=== PATIENT | male | born 1935 | race Caucasian/White ===

== ENCOUNTER 2023-03-16 12:27 | Outpatient (OUT) | payer MEDICARE, OTHER, SELFPAY ==
[2023-03-16 13:42] LABS: Estimated Average Glucose 166 mg/dL; Glycohemoglobin A1C 7.4 % (4.5-6.2)
== END 2023-03-16 12:28 ==
LOC: LAB 12:36
PROVIDERS: PCP Family Medicine; Visit Provider Family Medicine
DX: E11.65 Type 2 diabetes mellitus with hyperglycemia (principal)
CPT/HCPCS: 36415; 83036

== ENCOUNTER 2023-03-27 12:25 | Emergency (ER) | payer MEDICARE, OTHER, SELFPAY ==
[2023-03-27 12:30] VITALS: BP 180/100; PULSE 59; RESP 18; TEMP 36.6; O2SAT 98; BMI 28.7
--- NOTE | 2023-03-27 12:43 | PC.NURSE ---
Pt has recently had a MRI at [facility] for his back pain. Pt states that he just wants answers for the pain and all of his other symptoms that he is having. States main concerns todayis the back pain. States it hurts to move and cough and cannot walk safely on his own due to the pain and weakness.
--- NOTE | 2023-03-27 13:03 | ED.BACK1 ---
HPI - Back Pain/Injury General Chief Complaint: Back Pain/Injury Stated Complaint: BACK PAIN Time Seen by Provider: 03/27/23 13:03 Source: patient and family Mode of arrival: Wheelchair Limitations: no limitations History of Present Illness HPI Narrative: pt presents emergency department complaining of back pain. Patient states he has a history of degenerative disc disease. Had an MRI done a [facility] and has not seen his doctor regarding the results. He has seen Dr nicholson in the last month for increasing back pain. The pain is worse on the right side is not radiate to the lower extremity. He has weakness, and fatigue. He also has been vomiting at home. Patient is taking Ultram and only has 2 pills left. Denies any paresthesias, or weakness. He denies any urinary, bowel incontinence, or retention. Patient was also given prednisone for [address] nicholson on March 16 symptoms are not improving. Family states he has decreased appetite and feeling very weak. He is also being referred to cardiology for a low heart rate. She states they saw the neurologist Dr. Murray which advised that he needs to be in some medication but because of his low heart rates they cannot start that medication. Patient states is not getting any better and the pain has increased. He denies any hematuria, dysuria.He denies any fall or trauma. Related Data Home Medications Medication Instructions Recorded Confirmed aspirin 81 mg tablet,delayed 81 mg PO DAILY 03/27/23 03/27/23 release donepezil 10 mg tablet (Aricept) 10 mg PO DAILY 03/27/23 03/27/23 hydralazine 25 mg tablet 25 mg PO TID 03/27/23 03/27/23 isosorbide mononitrate 60 mg 60 mg PO DAILY 03/27/23 03/27/23 tablet,extended release 24 hr latanoprost 0.005 % eye drops 1 drp ophthalmic (eye) DAILY 03/27/23 03/27/23 lisinopril 20 1 tab PO DAILY 03/27/23 03/27/23 mg-hydrochlorothiazide 25 mg tablet lovastatin 40 mg tablet 40 mg PO DAILY 03/27/23 03/27/23 metformin 500 mg tablet 500 mg PO DAILY 03/27/23 03/27/23 naproxen 500 mg tablet 250 mg PO BID PRN pain 03/27/23 03/27/23 omeprazole 40 mg capsule,delayed 40 mg PO DAILY 03/27/23 03/27/23 release oxybutynin chloride 10 mg 10 mg PO DAILY 03/27/23 03/27/23 tablet,extended release 24 hr tamsulosin 0.4 mg capsule 0.4 mg PO DAILY 03/27/23 03/27/23 vitamins A,C,Q-twhv-fydieb 4,296 1 cap PO DAILY 03/27/23 03/27/23 mcg-226 mg-90 mg capsule (PreserVision AREDS) Previous Rx's Medication Instructions Recorded oxycodone-acetaminophen 5 mg-325 1 tab PO Q6H PRN pain 5 days #20 03/27/23 mg tablet (Percocet) tabs Allergies Allergy/AdvReac Type Severity Reaction Status Date / Time No Known Drug Allergies Allergy Verified 03/27/23 12:39 Review of Systems ROS Status of ROS 10 or more systems reviewed and unremarkable except as noted in history and below Exam Narrative Exam Narrative: Nurses notes and vital signs reviewed and patient is not hypoxic. General: Nontoxic, Appears in pain, in no apparent distress. Skin: Warm, dry, no pallor noted. No Rash Head: Normocephalic, atraumatic. Neck: Supple, non-tender. Eye: Pupils are equal, round and EOMI. No scleral icterus. Ears, Nose, Mouth, and Throat: TM clear, no posterior oropharynx erythema or nasal mucosal hypertrophy, uvula is mid-line Oral mucosa is moist Cardiovascular: Regular Rate and Rhythm without murmur, gallop or rub. Respiratory: No accessory muscle use or respiratory distress. Lungs are clear to auscultation, no wheezing, rales or rhonchi Chest Wall: no tenderness Back: No midline thoracic or lumbar vertebral tenderness. + right CVA tenderness Musculoskeletal: normal ROM, no calf or popliteal tenderness, no lower extremity edema/swelling GI: Abdomen is soft, non-distended. Normal bowel sounds. No masses appreciated. No tenderness to palpation. No rebound, guarding, or rigidity noted. Neurological: A&O x4. No cranial nerve dysfunction observed. No truncal ataxia. Moves all extremities. Sensation intact. Psychiatric: Cooperative and interactive. Normal mood and affect. Constitutional Vital Signs - 24 hr 03/27/23 12:30 03/27/23 13:53 Temperature 97.9 F Pulse Rate [Monitor] 59 L Respiratory Rate 18 Blood Pressure [Left Arm] 180/100 H Pulse Oximetry 98 Oxygen Delivery Method Room Air Room Air Course Vital Signs Vital signs: Vital Signs Temperature 97.9 F 03/27/23 12:30 Pulse Rate 59 L 03/27/23 12:30 Respiratory Rate 18 03/27/23 12:30 Blood Pressure 180/100 H 03/27/23 12:30 Pulse Oximetry 98 03/27/23 12:30 Oxygen Delivery Method Room Air 03/27/23 12:30 Temperature 97.9 F 03/27/23 12:30 Pulse Rate 59 L 03/27/23 12:30 Respiratory Rate 18 03/27/23 12:30 Blood Pressure 180/100 H 03/27/23 12:30 Pulse Oximetry 98 03/27/23 12:30 Oxygen Delivery Method Room Air 03/27/23 13:53 MDM - Back Pain/Injury MDM Narrative Medical decision making narrative: Patient had an IV established. He was given IV fluids and morphine. His symptoms improved. The patient the need to do further workup to ensure he does not have a kidney stone. States he takes Flomax at home. He takes it twice a day. All results were discussed with patient. Patient is advised to continue drinking plenty of fluids and strain the urine. He is currently passing a kidney stone. He will also follow up with his primary care doctor regarding the MRI and with urology. pt was given a prescription for [place]. At this time the patient is without objective evidence of an acute process requiring hospitalization or inpatient management. The patient has remained hemodynamically stable. No additional indication for emergent studies at this time. I answered all questions. Discussed discharge instructions including standard anticipatory guidance and what should prompt a return to the emergency department, including if they get worse are not getting better or develops any new or concerning symptoms. I've given them specific time frame in which to follow-up, and who to follow-up with. The patient demonstrates understanding. Patient is nontoxic and stable for discharge with outpatient follow-up. This note was created with the assistance of a speech recognition program. Although the intention is to generate documents that actually reflects the content of the visit, no guarantees can be provided that every mistake has been identified and corrected by editing. Differential Diagnosis Differential diagnosis: Likely lumbar radiculopathy, sciatica, strain of lumbar region, renal colic, AAA and discitis Medical Records Attestation: I reviewed the patient's medical records. Lab Data Attestation: I reviewed the patient's lab results. Labs: Lab Results 03/27/23 Range/Units 13:35 WBC 14.5 H (4.0-11.0) 10^3/uL RBC 4.72 (4.70-6.10) 10^6/uL Hgb 14.4 (14.0-18.0) g/dL Hct 42.7 (42.0-54.0) % MCV 90.5 (80.0-94.0) fL MCH 30.5 (25.9-34.0) pg MCHC 33.7 (29.9-35.2) g/dL RDW 12.7 (11.0-15.0) % Plt Count 265 (150-450) 10^3/uL MPV 9.7 (9.5-13.5) fL Neut % (Auto) 81.6 H (43.0-75.0) % Lymph % (Auto) 11.4 L (20.5-60.0) % Jack % (Auto) 5.6 (1.7-12.0) % Eos % (Auto) 0.6 L (0.9-7.0) % Baso % (Auto) 0.3 (0.2-2.0) % Neut # (Auto) 11.8 H (1.4-6.5) 10^3/uL Lymph # (Auto) 1.7 (1.2-3.8) 10^3/uL Jack # (Auto) 0.8 (0.3-0.8) 10^3/uL Eos # (Auto) 0.1 (0.0-0.7) 10^3/uL Baso # (Auto) 0.0 (0.0-0.1) 10^3/uL Abs Immat Gran (auto) 0.07 H (0.00-0.03) 10^3/uL Imm/Tot Granulo (auto) 0.5 (0.0-0.5) % Sodium 132 L (136-145) mmol/L Potassium 4.8 (3.5-5.1) mmol/L Chloride 94 L (98-107) mmol/L Carbon Dioxide 31.7 (21.0-32.0) mmol/L Anion Gap 11.1 BUN 27.0 H (7.0-18.0) mg/dL Creatinine 1.28 (0.70-1.30) mg/dL Est GFR ( Amer) >60 (>=60) Est GFR (Non-Af Amer) 53 L (>=60) BUN/Creatinine Ratio 21.1 Glucose 232 H (74-106) mg/dL Calcium 9.2 (8.5-10.1) mg/dL Total Bilirubin 1.4 H (0.2-1.0) mg/dL AST 34 (15-37) U/L ALT 32 (16-63) U/L Alkaline Phosphatase 120 H (46-116) U/L Total Protein 7.8 (6.4-8.2) g/dL Albumin 3.7 (3.4-5.0) g/dL Globulin 4.1 g/dL Albumin/Globulin Ratio 0.9 Urine Color Lt. yellow (YELLOW) Urine Clarity Clear (CLEAR) Urine pH 7.0 (5.0-9.0) Ur Specific [place] <=1.005 A (1.005-1.025) Urine Protein Negative (NEG/TRACE) mg/dL Urine Glucose (UA) Negative (NEGATIVE) mg/dL Urine Ketones Negative (NEGATIVE) mg/dL Urine Occult Blood Negative (NEGATIVE) Urine Nitrite Negative (NEGATIVE) Urine Bilirubin Negative (NEGATIVE) Urine Urobilinogen 0.2 (0.2-1.0) EU/dL Ur Leukocyte Esterase Negative (NEGATIVE) Discharge Plan Discharge Chief Complaint: Back Pain/Injury Clinical Impression: Degenerative disc disease, Kidney stone on right side Patient Disposition: Home, Self-Care Time of Disposition Decision: 15:58 Condition: Good Mode of Transportation: Private Vehicle Prescriptions / Home Meds: New oxycodone-acetaminophen [Percocet] 5-325 mg tablet 1 tab PO Q6H PRN (Reason: pain) 5 Days Qty: 20 0RF Rx Instructions: N20 No Action donepezil [Aricept] 10 mg tablet 10 mg PO DAILY isosorbide mononitrate 60 mg tablet extended release 24 hr 60 mg PO DAILY lisinopril-hydrochlorothiazide 20-25 mg tablet 1 tab PO DAILY lovastatin 40 mg tablet 40 mg PO DAILY metformin 500 mg tablet 500 mg PO DAILY oxybutynin chloride 10 mg tablet extended release 24hr 10 mg PO DAILY tamsulosin 0.4 mg capsule 0.4 mg PO DAILY hydralazine 25 mg tablet 25 mg PO TID aspirin 81 mg tablet,delayed release (DR/EC) 81 mg PO DAILY PreserVision AREDS 4,296 mcg-226 mg-90 mg capsule 1 cap PO DAILY latanoprost 0.005 % drops 1 drp ophthalmic (eye) DAILY naproxen 500 mg tablet 250 mg PO BID PRN (Reason: pain) omeprazole 40 mg capsule,delayed release(DR/EC) 40 mg PO DAILY Instructions: Kidney Stones (ED), Degenerative Disc Disease (ED) Stand Alone Forms: Portal Instructions Referrals: Ramon Nicholson MD [Primary Care Provider] - 1 week Discharge Date/Time: 03/27/23 16:23
--- NOTE | 2023-03-27 13:26 | CT_ITS ---
[address] [address] Patient Name: EDWIN QUINTANILLA MRN: [id number] date: 1935 Sex: M Assigned Patient Location: ER Current Patient Location: Accession/Order Number: [id number] Exam Date: 03/27/2023 14:19 Report Date: 03/27/2023 15:01 At the request of: GONZÁLEZ HADDAD Procedure: CT abdomen pelvis wo con EXAMINATION: CT abdomen pelvis wo con HISTORY: flank pain low back pain, DDD COMPARISON: No relevant comparison available. TECHNIQUE: Axial, Coronal, and Sagittal images were obtained without and/or with IV contrast as indicated by examination type. Dose reduction techniques were achieved by using automated exposure control and/or adjustment of mA and/or kV according to patient size and/or use of iterative reconstruction technique. FINDINGS: LUNG BASES: No visible pulmonary or pleural disease. LIVER: No enlargement, atrophy, suspicious density, or significant focal lesion. BILIARY: Cholecystectomy. PANCREAS: No lesion, fluid collection, or abnormal duct dilatation. SPLEEN: No enlargement or focal lesion. ADRENALS: No mass or enlargement. KIDNEYS: 1 mm nonobstructing stone within distal right ureter at the ureterovesical junction. BOWEL/MESENTERY: Marked diverticulosis of the descending and sigmoid colon without acute inflammatory changes. No visible mass, obstruction, or bowel wall thickening. AORTA/VASCULAR: No aneurysm or dissection. RETROPERITONEUM: No mass or adenopathy. LYMPH NODES: No adenopathy. URINARY BLADDER: No visible focal wall thickening, lesion, or calculus. PELVIC ORGANS: Prior radioactive seeding of the prostate. ABDOMINAL WALL: No mass or hernia. BONES: Marked degenerative disc disease and facet arthropathy of the lumbar spine except L2-3 where there is only moderate disc height reduction. OTHER: Negative. IMPRESSION: 1.Nonobstructing1-2 mm stone within distal right ureter at the ureterovesical junction. 2. Marked sigmoid diverticulosis without acute diverticulitis. 3.Multilevel marked degenerative changes of the lumbar spine. No comparison studies. Electronically authenticated by: COLEEN NEWELL Date: 03/27/2023 15:01
[2023-03-27] MEDS: MORPHINE SULFATE 4 MG/ML VIAL IM (13:38)
[2023-03-27 13:51] LABS: Basophils Percent Auto 0.3 % (0.2-2.0); Eosinophils Absolute Auto 0.1 10^3/uL (0.0-0.7); Eosinophils Percent Auto 0.6 % (0.9-7.0); Hematocrit 42.7 % (42.0-54.0); Hemoglobin 14.4 g/dL (14.0-18.0); Immature Granulocytes Abs Auto 0.07 10^3/uL (0.00-0.03); Immature Granulocytes Pct Auto 0.5 % (0.0-0.5); Lymphocytes Absolute Auto 1.7 10^3/uL (1.2-3.8); Lymphocytes Percent Auto 11.4 % (20.5-60.0); Mean Corpuscular HGB Conc 33.7 g/dL (29.9-35.2); Mean Corpuscular Hemoglobin 30.5 pg (25.9-34.0); Mean Corpuscular Volume 90.5 fL (80.0-94.0); Mean Platelet Volume 9.7 fL (9.5-13.5); Monocytes Absolute Auto 0.8 10^3/uL (0.3-0.8); Monocytes Percent Auto 5.6 % (1.7-12.0); Neutrophils Absolute Auto 11.8 10^3/uL (1.4-6.5); Neutrophils Percent Auto 81.6 % (43.0-75.0); Platelet Count 265 10^3/uL (150-450); Red Blood Count 4.72 10^6/uL (4.70-6.10); Red Cell Distribution Width 12.7 % (11.0-15.0); White Blood Count 14.5 10^3/uL (4.0-11.0)
[2023-03-27 14:00] LABS: Bilirubin Urine NEGATIVE (NEGATIVE); Blood Urine NEGATIVE (NEGATIVE); Clarity Urine CLEAR (CLEAR); Color Urine LT. YELLOW (YELLOW); Glucose Urine UA NEGATIVE (NEGATIVE); Ketones Urine NEGATIVE (NEGATIVE); Leukocyte Esterase Urine NEGATIVE (NEGATIVE); Nitrite Urine NEGATIVE (NEGATIVE); Protein Urine NEGATIVE (NEG/TRACE); Specific Gravity Urine <=1.005 (1.005-1.025); Urobilinogen Urine 0.2 EU/dL (0.2-1.0)
[2023-03-27 14:03] LABS: Urine Microscopic Indicated NO
[2023-03-27 14:04] LABS: Alanine Aminotransferase 32 U/L (16-63); Albumin Globulin Ratio 0.9; Albumin Level 3.7 g/dL (3.4-5.0); Alkaline Phosphatase 120 U/L (46-116); Anion Gap 11.1; Aspartate Amino Transferase 34 U/L (15-37); BUN Creatinine Ratio 21.1; Bilirubin Total 1.4 mg/dL (0.2-1.0); Calcium 9.2 mg/dL (8.5-10.1); Carbon Dioxide 31.7 mmol/L (21.0-32.0); Chloride 94 mmol/L (98-107); Estimated GFR (African America >60 (>=60); Estimated GFR (Non-African Ame 53 (>=60); Globulin 4.1 g/dL; Glucose 232 mg/dL (74-106); Potassium 4.8 mmol/L (3.5-5.1); Sodium 132 mmol/L (136-145); Total Protein 7.8 g/dL (6.4-8.2)
--- NOTE | 2023-03-27 16:21 | PC.NURSE ---
d/c instructions complete pt verbalized understanding. prescription sent to pharmacy and pt's friend used w/c to take to car.
== END 2023-03-27 16:23 | disposition home or self-care (01) ==
PROVIDERS: Emergency Provider Emergency Medicine; PCP Family Medicine
DX: M51.36 Other intervertebral disc degeneration, lumbar region (principal); N20.0 Calculus of kidney; Z79.82 Long term (current) use of aspirin; Z79.899 Other long term (current) drug therapy; Z79.84 Long term (current) use of oral hypoglycemic drugs
CPT/HCPCS: 36415; 74176; 80053; 81003; 85025; 96372; 99285

== ENCOUNTER 2023-04-11 08:43 | Outpatient (OUT) | payer MEDICARE, OTHER, SELFPAY ==
--- NOTE | 2023-04-11 08:44 | OP_ITS ---
CARDIAC STRESS TEST ? Requesting Physician:? Dr. Ramachandran Procedure Date:? 04/11/2023 ? TREADMILL EXERCISE STRESS TEST ? INDICATION:? Coronary atherosclerosis. ? METHODS:? After risks, benefits and benefits were discussed, written informed consent was obtained.? The patient was brought to the stress lab in a resting and fasting state.? He was connected to the appropriate hemodynamic and electrocardiographic monitoring. ? He underwent a [place] protocol for exercise.? The test was terminated due to fatigue.? He was discharged in a stable state ? FINDINGS:? Hemodynamics:? The patient exercised for 1 minute and 7 seconds, achieving 3.80 METS.? This represented 61% of maximum age predicted heart rate. ? Resting heart rate was 62 beats per minute, increasing to a maximum of 82 beats per minute.? Resting blood pressure was 148/70, increasing to a maximum of 162/68. ? ELECTROCARDIOGRAPHY: Rest EKG:? Sinus bradycardia, 54 beats per minute, non-specific intraventricular conduction delay.? Abnormal EKG. ? During exercise and recovery:? No significant ST-T wave changes noted.? Premature ventricular contractions seen. ? FINAL IMPRESSIONS: 1.? Submaximal treadmill stress test due to inability to achieve 85% of age predicted maximum heart rate response. 2.? No ischemic ST-T wave changes noted on submaximal exercise stress test. 3.? Premature ventricular contractions note. 4.? Gutiérrez treadmill score is 1.1. Estimated one year mortality is 1.3 to 2.9%.? Risk category:? Moderate risk.? Angiography may be indicated. ? ELLEND
== END 2023-04-11 08:44 | disposition home or self-care (01) ==
LOC: CARD 08:43
PROVIDERS: PCP Family Medicine
DX: R53.83 Other fatigue (principal); I25.83 Coronary atherosclerosis due to lipid rich plaque
CPT/HCPCS: 93017

== ENCOUNTER 2023-06-20 13:51 | Outpatient (OUT) | payer MEDICARE, OTHER, SELFPAY ==
--- NOTE | 2023-06-20 | CONS_ITS ---
CONSULTATION DATE: ??06/20/2023 TO:? Dr. Ortiz CHIEF COMPLAINT:? Includes bilateral lower back pain, right more than left side. HISTORY OF PRESENT ILLNESS:? Review of systems, past medical/surgical history were obtained and documented on the health questionnaire and is available upon request. This is an 88-year-old male who reports having pain for the last two years.? It occurred spontaneously and increased gradually to its present state.? He complains of 5-7/10, sharp in character in the above mentioned areas, increased with activities such as standing, walking and performing transitioning maneuvers.? He feels most comfortable in the semi-recumbent position.? Denies any change in bowel and bladder habits or new sensorimotor changes in the lower extremities. EXAMINATION:? Notable for patient having no clinical radiculopathy or myelopathy involving his lower extremities.? Patient did have significant lumbar facet loading pain occurring bilaterally from L4 through S1 with associated myofascial spasm of the lumbar paravertebral muscles. IMPRESSION:? 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 RECOMMENDATIONS:? I have recommended he consider aquatic therapy.? I have placed him on gabapentin 100 mg b.i.d. and to consider a diagnostic bilateral L3, L4, L5 medial branch block under fluoroscopic guidance. As part of providing excellent, safe, comprehensive care, the following was completed at our patient's visit: 1. A medication reconciliation and review to ensure accurate knowledge of current/active medications, including asking our patients to inform us about any [id number] medications or herbal remedies/nutritional supplements/alternative remedies. 2. A review to specifically ensure our patients have had annual screening for: elevated body mass index (BMI, see intake chart for exact total), tobacco use, screening for depression, and screening for unhealthy alcohol use.? When screening is concerning, patients are provided with education and the specific recommendation to discuss the concerning health issue and treatment options with their primary care provider. LISA
== END 2023-06-20 13:52 | disposition home or self-care (01) ==
PROVIDERS: PCP Family Medicine; Visit Provider Anesthesiology Pain Medicine
DX: M47.817 Spondylosis without myelopathy or radiculopathy, lumbosacral region (principal); G89.29 Other chronic pain
CPT/HCPCS: G0463

== ENCOUNTER 2023-07-04 10:03 | Day surgery (SDC) | payer MEDICARE, OTHER, SELFPAY ==
[2023-07-04 10:44] VITALS: BP 160/72; PULSE 58; RESP 16; TEMP 36.2; O2SAT 95
[2023-07-04 10:52] LABS: Glucometer 149 mg/dL (74-106)
[2023-07-04 11:35] VITALS: RESP 20
[2023-07-04] MEDS: BUPIVACAINE HCL 0.25% PF 25 MG/10 ML VIAL 8 ML INJ (11:42)
[2023-07-04 11:44] VITALS: BP 191/84; BP 191/86; PULSE 64; PULSE 66; O2SAT 96
--- NOTE | 2023-07-04 12:35 | W.PM.PROCNOT ---
Date of procedure: 07/04/23 Pre-op diagnosis: Lumbar Spondylosis Post-op diagnosis: same as pre-op Procedure: Bilateral Lumbar 3,4,5 medial branch block Under fluoroscopic guidance Solution injected: 2millilitersMarcaine 0.25% Anesthesia :none Immediate complications none Time out process compliant After informed consent obtained from the patient placed in the Prone proposition . area was prepped and draped in a sterile fashion using Cloraprep .25 gauge spinal needle inserted over each of the above mentioned target areas . [place] were directed towards the target under fluoroscopic guidance . after encountering each of the targets , no indication of intravascular intraneuronal or intrathecal needle tip placement. Then 0 .5 to 1 Milliliter was injected at each level. [place] removed postoperatively. patient transferred to recovery in stable condition to be discharged home after meeting criteria Anesthesia: Local Surgeon: Ericka Holden Condition: stable
== END 2023-07-04 11:53 | disposition home or self-care (01) ==
LOC: SURGOUT 10:04
PROVIDERS: PCP Family Medicine; Visit Provider Anesthesiology Pain Medicine
DX: M47.816 Spondylosis without myelopathy or radiculopathy, lumbar region (principal); Z79.82 Long term (current) use of aspirin; Z79.84 Long term (current) use of oral hypoglycemic drugs
CPT/HCPCS: 36415; 36416; 64493; 64494; 82948

== ENCOUNTER 2023-07-18 14:12 | Outpatient (OUT) | payer MEDICARE, OTHER, SELFPAY ==
--- NOTE | 2023-07-18 | CONS_ITS ---
CONSULTATION DATE: ??07/18/2023 TO:? Ramon Ortiz M.D. HISTORY:? Patient returns today complaining of 4-7/10 pain in his lower back, bilateral lower extremities.? This is sharp in nature, increased with activities such as standing, walking and performing transitioning maneuvers.? Patient feels most comfortable in the semi-recumbent position.? Denies any change in bowel and bladder habits or new sensorimotor changes in the lower extremities.? Patient does report, as he is walking, he has progressive weakness and pain in his lower extremities bilaterally, when walking for even approximately 20 yards.? After sitting for a short period of time, he reports his leg pain does improve and then he is able to walk once more.? Denies any change in bowel and bladder habits, again, or new sensorimotor changes in the lower extremities EXAMINATION:? Notable for patient having depressed bipatellar reflux, weakness of his iliopsoas muscle bilaterally, as well as his quadriceps bilaterally.? He had a negative straight leg raise.? He had no clinical signs consistent with myelopathy. IMPRESSION:? 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 RECOMMENDATIONS:? I have recommended we continue with the gabapentin at 100 mg b.i.d.? Unable to increase the dose at this time secondary to his side effects.? He is having occasional fogginess with the use of gabapentin, and patient is not even sure if it is from the gabapentin, and he cannot tie the two together, but we will not increase the dose from his current level of 100 mg b.i.d.? I have also asked him to start aquatic therapy and, lastly, proceed with an L4-5 epidural steroid injection under fluoroscopic guidance. As part of providing excellent, safe, comprehensive care, the following was completed at our patient's visit: 1. A medication reconciliation and review to ensure accurate knowledge of current/active medications, including asking our patients to inform us about any [id number] medications or herbal remedies/nutritional supplements/alternative remedies. 2. A review to specifically ensure our patients have had annual screening for: elevated body mass index (BMI, see intake chart for exact total), tobacco use, screening for depression, and screening for unhealthy alcohol use.? When screening is concerning, patients are provided with education and the specific recommendation to discuss the concerning health issue and treatment options with their primary care provider. LISA
== END 2023-07-18 14:13 | disposition home or self-care (01) ==
LOC: PM 14:12
PROVIDERS: PCP Family Medicine; Visit Provider Anesthesiology Pain Medicine
DX: M48.062 Spinal stenosis, lumbar region with neurogenic claudication (principal); G89.29 Other chronic pain
CPT/HCPCS: G0463

== ENCOUNTER 2023-07-21 13:56 | Outpatient (RCR) | payer MEDICARE, OTHER, SELFPAY | END 2023-07-28 15:10 | disposition home or self-care (01) | LOC: PT 13:56 | PROVIDERS: PCP Family Medicine; Visit Provider Anesthesiology Pain Medicine | DX: M48.062 Spinal stenosis, lumbar region with neurogenic claudication (principal) | CPT/HCPCS: 97110; 97161 ==

== ENCOUNTER 2023-08-01 11:12 | Day surgery (SDC) | payer MEDICARE, OTHER, SELFPAY ==
[2023-08-01 12:01] LABS: Glucometer 139 mg/dL (74-106)
[2023-08-01 12:02] VITALS: BP 151/77; PULSE 59; RESP 16; TEMP 36.7; O2SAT 97
[2023-08-01 12:56] VITALS: BP 165/72; BP 171/74; PULSE 76; PULSE 77; RESP 18; O2SAT 96; O2SAT 97
[2023-08-01] MEDS: BUPIVACAINE HCL 0.25% PF 25 MG/10 ML VIAL 2 ML INJ (12:58)
[2023-08-01] MEDS: 0.9 % SODIUM CHLORIDE 10 ML SYRINGE - SALINE FLUSH 2 ML INJ (12:58)
[2023-08-01] MEDS: IOHEXOL 240 MG/ML - 10 ML VIAL INJ (12:59)
[2023-08-01] MEDS: LIDOCAINE HCL 2% PF 100 MG/5 ML VIAL 4 ML INJ (12:59)
[2023-08-01] MEDS: LIDOCAINE HCL 2% PF 100 MG/5 ML VIAL INJ (13:00)
[2023-08-01] MEDS: METHYLPREDNISOLONE ACETATE 80 MG/ML VIAL INJ (13:00)
--- NOTE | 2023-08-01 13:35 | P.ON_ITS ---
Date of procedure: 08/01/23 Pre-op diagnosis: Lumbar stenosis Post-op diagnosis: same as pre-op Procedure: Lumbar 4/5 Epidural Steroid Injection Under fluoroscopic guidance Immediate complications none Solution used for injection: Marcaine 0.25% 2mL, 2cc Normal saline, Depo-Medrol 80mg Omnipaque 3 mL Anesthesia local 2% lidocaine up to 4ml Timeout process compliant After informed consent obtained. Patient brought to the procedure room placed in the prone position. Skin overlying the area was prepped and draped in a sterile fashion using betadine. 25 gauge needle used to raise a skin wheel with local anesthetic over the target area identified under fluoroscopy. A 17 gauge Touhy needle Was inserted over the anesthetized area and directed towards the inter- space under fluoroscopic guidance. Epidural space was identified with loss of resistance technique to air. Needle Tip placement confirmed with injection of contrast solution. Steroid solution was then injected. Anesthesia: Local Surgeon: Ericka Holden Condition: stable
== END 2023-08-01 13:09 | disposition home or self-care (01) ==
LOC: SURGOUT 11:12
PROVIDERS: Anesthesiology; PCP Family Medicine; Visit Provider Anesthesiology Pain Medicine
DX: M48.061 Spinal stenosis, lumbar region without neurogenic claudication (principal); M54.16 Radiculopathy, lumbar region; Z79.82 Long term (current) use of aspirin; Z79.84 Long term (current) use of oral hypoglycemic drugs
CPT/HCPCS: 36415; 62323; 82948; J1040; Q9966

== ENCOUNTER 2023-08-16 10:47 | Outpatient (OUT) | payer MEDICARE, OTHER, SELFPAY ==
--- NOTE | 2023-08-16 11:24 | P.CN_ITS ---
Consult Note: HPI Data of Consult Patient: known to practice within the last 3 years Requesting Physician: Caridad Jordan NP Primary Care Provider: Ramon Ortiz MD Consult Narrative Reason for consult: f/u Narrative: Corey Orourke a pleasant 88 year old male presents for evaluation and management of low back pain. Today rating pain 3/10. Is reporting 90% ongoing pain relief and functional improvement as a result of L4/5 OMAR. Patient doing well on current medication regimen. cc:: CC: Caridad Jordan NP Review of Systems ROS Status of ROS 10 or more systems reviewed and unremarkable except as noted in history and below Musculoskeletal Reports: back pain Meds Home Medications and Allergies Home Medications Medication Instructions Recorded Confirmed Type aspirin 81 mg tablet,delayed 81 mg PO DAILY 03/27/23 08/01/23 History release donepezil 10 mg tablet (Aricept) 10 mg PO DAILY 03/27/23 08/01/23 History hydralazine 25 mg tablet 25 mg PO TID 03/27/23 08/01/23 History isosorbide mononitrate 60 mg 60 mg PO DAILY 03/27/23 08/01/23 History tablet,extended release 24 hr latanoprost 0.005 % eye drops 1 drp ophthalmic (eye) DAILY 03/27/23 08/01/23 History lisinopril 20 1 tab PO DAILY 03/27/23 08/01/23 History mg-hydrochlorothiazide 25 mg tablet lovastatin 40 mg tablet 40 mg PO DAILY 03/27/23 08/01/23 History metformin 500 mg tablet 500 mg PO DAILY 03/27/23 08/01/23 History omeprazole 40 mg capsule,delayed 40 mg PO DAILY 03/27/23 08/01/23 History release oxybutynin chloride 10 mg 10 mg PO DAILY 03/27/23 08/01/23 History tablet,extended release 24 hr tamsulosin 0.4 mg capsule 0.4 mg PO DAILY 03/27/23 08/01/23 History vitamins A,C,P-ijtm-cihoib 4,296 1 cap PO DAILY 03/27/23 08/01/23 History mcg-226 mg-90 mg capsule (PreserVision AREDS) gabapentin 100 mg capsule 100 mg PO BID #60 caps 06/20/23 08/01/23 Rx acetaminophen 500 mg tablet 1,000 mg PO TID PRN pain 06/21/23 08/01/23 History (Acetaminophen Extra Strength) citalopram 20 mg tablet 20 mg PO DAILY 06/21/23 08/01/23 History Allergies Allergy/AdvReac Type Severity Reaction Status Date / Time No Known Drug Allergies Allergy Verified 08/01/23 12:00 Exam Constitutional Documenting provider has reviewed patient's vital signs: yes Common normals: no apparent distress, oriented x3, healthy appearing, alert and well nourished General appearance: cooperative HENMT Common normals: normocephalic, hearing grossly normal bilaterally and moist oral mucous membranes Head and scalp: normocephalic Eye Common normals: PERRL Pupil: PERRL Neck & C-Spine Common normals: full ROM General: normal visual inspection Chest Common normals: inspection of chest normal Respiratory Common normals: normal respiratory effort, no retractions and no use of accesso ry muscles Back & Pelvis Lumbar spine/lower back: ROM limited, pain with ROM and straight leg raise negative bilaterally Neuro Common normals: oriented x3, CN's II-XII intact bilaterally, moves all extremities, no focal motor deficits, no sensory deficits noted and deep tendon reflexes 2+ bilaterally Sensorium/orientation: alert Gait (neuro): antalgic and assistive device used walker Motor exam: strength 5/5 throughout and no movement abnormalities noted Psych Common normals: mental status grossly normal, thought process normal, cooperative, affect normal, speech normal and activity/motor behavior normal Speech: normal speech Thought process: normal thought process Results Additional Findings Additional findings: I have checked an [place] report on this patient today and there are no aberrancies noted in the prescribing history.?? A drug screen was completed and reviewed within the last year, and if there has not been a drug screen completed we ordered one today to monitor higher risk, state monitored pain medication use. As part of providing excellent, safe, comprehensive care, the following was completed at our patient's visit: 1. A medication reconciliation and review to ensure accurate knowledge of current/active medications, including asking our patients to inform us about any vgze-use-dbnlegm medications or herbal remedies/nutritional supplements/alternative remedies. 2. A review to specifically ensure our patients have had annual screening for: elevated body mass index (BMI), tobacco use, screening for depression, and screening for unhealthy alcohol use. When screening is concerning, patients are provided with education and the specific recommendation to discuss the concerning health issue and treatment options with their primary care provider. Assessment and Plan Assessment and Plan (1) Lumbar stenosis with neurogenic claudication: Plan continue current medications start PT and aquatherapy f/u 3 months
== END 2023-08-16 10:48 | disposition home or self-care (01) ==
PROVIDERS: PCP Family Medicine; Visit Provider Nurse Practitioner
DX: M48.062 Spinal stenosis, lumbar region with neurogenic claudication (principal)
CPT/HCPCS: G0463

== ENCOUNTER 2023-09-27 14:17 | Outpatient (OUT) | payer MEDICARE, OTHER, SELFPAY ==
[2023-09-27 14:46] LABS: Basophils Absolute Auto 0.1 10^3/uL (0.0-0.1); Basophils Percent Auto 0.7 % (0.2-2.0); Eosinophils Absolute Auto 0.2 10^3/uL (0.0-0.7); Eosinophils Percent Auto 1.3 % (0.9-7.0); Hematocrit 39.1 % (42.0-54.0); Hemoglobin 12.6 g/dL (14.0-18.0); Immature Granulocytes Abs Auto 0.03 10^3/uL (0.00-0.03); Immature Granulocytes Pct Auto 0.2 % (0.0-0.5); Lymphocytes Absolute Auto 1.3 10^3/uL (1.2-3.8); Lymphocytes Percent Auto 8.8 % (20.5-60.0); Mean Corpuscular HGB Conc 32.2 g/dL (29.9-35.2); Mean Corpuscular Hemoglobin 30.3 pg (25.9-34.0); Mean Platelet Volume 9.3 fL (9.5-13.5); Monocytes Percent Auto 6.9 % (1.7-12.0); Neutrophils Absolute Auto 12.4 10^3/uL (1.4-6.5); Neutrophils Percent Auto 82.1 % (43.0-75.0); Platelet Count 277 10^3/uL (150-450); Red Blood Count 4.16 10^6/uL (4.70-6.10); Red Cell Distribution Width 11.9 % (11.0-15.0); White Blood Count 15.1 10^3/uL (4.0-11.0)
[2023-09-27 15:19] LABS: BUN Creatinine Ratio 15.7; Carbon Dioxide 31.1 mmol/L (21.0-32.0); Chloride 94 mmol/L (98-107); Estimated GFR (African America >60 (>=60); Estimated GFR (Non-African Ame >60 (>=60); Glucose 129 mg/dL (74-106); Potassium 4.1 mmol/L (3.5-5.1); Sodium 134 mmol/L (136-145)
== END 2023-09-27 14:18 | disposition home or self-care (01) ==
PROVIDERS: PCP Family Medicine; Visit Provider Internal Medicine Cardiovascular Disease
DX: I49.5 Sick sinus syndrome (principal)
CPT/HCPCS: 36415; 80048; 85025

== ENCOUNTER 2023-10-03 15:26 | Outpatient (OUT) | payer MEDICARE, OTHER, SELFPAY ==
--- NOTE | 2023-10-03 15:33 | XR_ITS ---
The [address] [address] Patient Name: EDWIN QUINTANILLA MRN: [id number] date: 1935 Sex: M Assigned Patient Location: [facility] Current Patient Location: [facility] Accession/Order Number: [id number] Exam Date: 10/03/2023 15:37 Report Date: 10/03/2023 16:19 At the request of: IVAN MCDONALD Procedure: XR chest 2V EXAM: XR chest 2V HISTORY: Sinuses node dysfunction I49.5 COMPARISON: AP portable chest radiograph dated 12/26/2022. TECHNIQUE: PA and lateral views of the chest performed. FINDINGS: There is a left subclavian pacemaker with right atrial and right ventricular leads. The trachea is midline. Stable mild prominence of the cardiac silhouette. The hilar shadows are unremarkable. Stable moderate elevation of the left hemidiaphragm. The lung alvarez are clear. There is no pneumothorax. The bony structures are osteopenic. There are endplate spurs along the spine. There are degenerative changes at the glenohumeral articulations bilaterally. XR/XR chest 2V IMPRESSION: There is no acute cardiopulmonary process. Electronically authenticated by: SAYRA GUILLAUME Date: 10/03/2023 16:19
== END 2023-10-03 15:27 | disposition home or self-care (01) ==
LOC: RAD 15:27
PROVIDERS: PCP Family Medicine; Visit Provider Internal Medicine Cardiovascular Disease
DX: I49.5 Sick sinus syndrome (principal)
CPT/HCPCS: 71046

== ENCOUNTER 2023-10-13 13:39 | Inpatient (IN) | payer MEDICARE, OTHER, SELFPAY ==
[2023-10-13] VITALS (14 sets, daily range): BP systolic 107–187; BP diastolic 51–91; PULSE 60–103; RESP 16–18; TEMP 36.4–36.8; O2SAT 94–98; BMI 26.5; BMI 26.6
--- NOTE | 2023-10-13 13:53 | XR_ITS ---
The [address] [address] Patient Name: EDWIN QUINTANILLA MRN: [id number] date: 1935 Sex: M Assigned Patient Location: ER Current Patient Location: Accession/Order Number: [id number] Exam Date: 10/13/2023 14:35 Report Date: 10/13/2023 14:57 At the request of: SENA CAMERON Procedure: XR shoulder LT min 2V EXAM: XR shoulder LT min 2V, XR chest 1V HISTORY: fall COMPARISON: Chest study dated 10/03/2023 TECHNIQUE: 3 views of the left shoulder were obtained. FINDINGS: Elevation of the humeral head in relation to the glenoid likely related to rotator cuff tear of uncertain chronicity. Marked glenohumeral joint space narrowing suggested. Mild inferior glenoid spurring. Moderate degenerative changes about the acromioclavicular joint with mild spurring of the acromion. Soft tissues are grossly within normal limits. No definite acute fracture or dislocation. AP view of the chest was obtained with portable technique at 2:31 PM. FINDINGS: Heart and mediastinal contours are unremarkable in appearance. Ckmz-gi-nttyoegw elevation of the left hemidiaphragm similar to prior study. Pacemaker on the left similar to prior exam. No obvious focal infiltrate or consolidation. Findings compatible with old rib fractures on the right. Mild degenerative changes in the dorsal spine with mild convexity to the right. XR/XR shoulder LT min 2V IMPRESSION: Left shoulder study fails to demonstrate definite acute fracture or dislocation. Degenerative changes as noted. Chest study fails to demonstrate definite evidence of acute process. Findings compatible with old rib fractures on the right. Follow-up as needed. Electronically authenticated by: NASEEM TOPETE Date: 10/13/2023 14:57
--- NOTE | 2023-10-13 13:53 | ECG_ITS ---
The [facility] Test Date: 2023-10-13 Pat Name: EDWIN QUINTANILLA Department: Room: - Gender: Male [place]: : 1935 Requested By: NORBERTO MARTINES Order Number: [id number] Reading MD: AYAAN PRESTON Measurements Intervals [place] Rate: 60 P: 90 MN: 178 QRS: 58 QRSD: 174 T: 63 QT: 502 QTc: 502 Interpretive Statements Paced rhythm Electronically Signed On 10-16-2023 17:24:10 EST by AYAAN PRESTON
--- NOTE | 2023-10-13 13:53 | XR_ITS ---
The [address] [address] Patient Name: EDWIN QUINTANILLA MRN: [id number] date: 1935 Sex: M Assigned Patient Location: ER Current Patient Location: Accession/Order Number: [id number] Exam Date: 10/13/2023 14:35 Report Date: 10/13/2023 14:57 At the request of: SENA CAMERON Procedure: XR chest 1V EXAM: XR shoulder LT min 2V, XR chest 1V HISTORY: fall COMPARISON: Chest study dated 10/03/2023 TECHNIQUE: 3 views of the left shoulder were obtained. FINDINGS: Elevation of the humeral head in relation to the glenoid likely related to rotator cuff tear of uncertain chronicity. Marked glenohumeral joint space narrowing suggested. Mild inferior glenoid spurring. Moderate degenerative changes about the acromioclavicular joint with mild spurring of the acromion. Soft tissues are grossly within normal limits. No definite acute fracture or dislocation. AP view of the chest was obtained with portable technique at 2:31 PM. FINDINGS: Heart and mediastinal contours are unremarkable in appearance. [id number]-[id number] elevation of the left hemidiaphragm similar to prior study. Pacemaker on the left similar to prior exam. No obvious focal infiltrate or consolidation. Findings compatible with old rib fractures on the right. Mild degenerative changes in the dorsal spine with mild convexity to the right. XR/XR chest 1V IMPRESSION: Left shoulder study fails to demonstrate definite acute fracture or dislocation. Degenerative changes as noted. Chest study fails to demonstrate definite evidence of acute process. Findings compatible with old rib fractures on the right. Follow-up as needed. Electronically authenticated by: NASEEM TOPETE Date: 10/13/2023 14:57
--- OUTSIDE RECORDS SUMMARY | 2023-10-13 13:55 | XMS_ITS | CCD ---
Author Name Unknown Address [address] [place] [address] Organization [facility] Care Team Providers Care Sap Bi Architect Name Role Phone PHYSICIAN, DEFAULT Unavailable Unavailable PHYSICIAN, DEFAULT Unavailable Unavailable SNEHA, DEEP Unavailable Unavailable PHYSICIAN, DEFAULT Unavailable Unavailable PHYSICIAN, DEFAULT Unavailable Unavailable SNEHA, DEEP Unavailable Unavailable UNKNOWN, PROVIDER Unavailable Unavailable UNKNOWN, PROVIDER Unavailable Unavailable SNEHA, DEEP Unavailable Unavailable RAMON MARTINES Unavailable Unavailable ISAI Campo Attending Provider [phone] Sanaz Campo Unavailable DO Jose Eduardo Murray Attending Provider MD Ramon Martines Primary Care Provider [phone] BOBBI, DR RAMON Chen Primary Care Unavailable NADEREElsie, DR RAMON Chen Consulting Unavailable NADEREElsie, DR RAMON Chen Attending Unavailable NADEREElsie, DR RAMON Chen Admitting Unavailable NADEREElsie, DR RAMON Chen Primary Care Unavailable NADEREElsie, DR RAMON Chen Consulting Unavailable CHANOEREElsie, DR RAMON Chen Attending Unavailable NADRENATE, DR RAMON Chen Admitting Unavailable MISC, DR MOORE Admitting Unavailable MISC, DR MOORE Consulting Unavailable MISC, DR MOORE Attending Unavailable NADEREElsie, DR RAMON Chen Primary Care Unavailable NADEREElsie, DR RAMON Chen Primary Care Unavailable NADEREElsie, DR RAMON Chen Attending Unavailable NADRENATE, DR RAMON Chen Admitting Unavailable GONZÁLEZ PARHAM Consulting Unavailable GONZÁLEZ PARHAM Attending Unavailable BOBBI, DR RAMON Chen Primary Care Unavailable GONZÁLEZ PARHAM Admitting Unavailable SAYRA GUILLAUME Consulting Unavailable SUZI NANCE Consulting Unavailable SUZI MURRAY Admitting Unavailable SUZI MURRAY Consulting Unavailable SUZI MURRAY Attending Unavailable BOBBI, DR RAMON Chen Primary Care Unavailable Sanaz Campo Admitting Unavailable Sanaz Campo Attending Unavailable Jose Eduardo Murray Attending UnavailRamon Jones Primary Care Unavailable Jose Eduardo Murray Admitting UnavailRamon Jones Admitting Unavailable Ramon Martines Primary Care Unavailable Ramon Martines Attending Unavailable Deven SALES Attending Unavailable ЕЛЕНА LOU Attending Unavailable DASHA, ЕЛЕНА Attending Unavailable MIKE HILARIO Attending Unavailable JOAQUÍN NELSON Attending Unavailable JOAQUÍN NELSON Attending Unavailable SARAH WILSON Attending Unavailable MIKE HILARIO Admitting Unavailable MIKE HILARIO Attending Unavailable MIKE HILARIO Referring Unavailable Allergies Allergy Classification Reported Allergen(s) Allergy Type Date of Onset Reaction(s) Facility (1 source) 22320,00 Drug allergy (disorder) 11-15-2010 [facility] Repository Medications Current Medications Medication Drug Class(es) Dates Sig (Normalized) Sig (Original) Aspirin (1 source) Platelet Aggregation Inhibitor, Nonsteroidal Anti-inflammatory Drug Aspirin 81 Active donepezil (1 source) Donepezil HCl Active hydroCHLOROthiazide / Lisinopril (1 source) Thiazide Diuretic, Angiotensin Converting Enzyme Inhibitor Lisinopril-hydro CHLOROthiazide Active Isosorbide (1 source) Nitrate Vasodilator Isosorbide Mononitrate ER Active latanoprost (1 source) Prostaglandin Analog Latanoprost Active Lovastatin (1 source) HMG-CoA Reductase Inhibitor Lovastatin Active metFORMIN (1 source) Biguanide metFORMIN HCl Active Metoprolol (1 source) beta-Adrenergic Chandler Metoprolol Succinate ER Active Naproxen (1 source) Nonsteroidal Anti-inflammatory Drug Naproxen Active PreserVision AREDS (1 source) PreserVision AREDS Active tamsulosin (1 source) alpha-Adrenergic Chandler Tamsulosin HCl Active Wrist Brace - (1 source) Start: 09-05-2022 Wrist Brace - as directed Aug, Active Problems Active Problems Problem Classification Problem Date Documented Date Episodic/Chronic Cardiac dysrhythmias (3 sources) Unspecified atrial fibrillation; Translations: [Sick sinus syndrome] Onset: 05-29-2018 Chronic Cardiac dysrhythmias (3 sources) Bradycardia, unspecified; Translations: [BRADYCARDIA UNSPECIFIED] Onset: 12-28-2022 Episodic Coronary atherosclerosis and other heart disease (6 sources) 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; Translations: [Atherosclerotic heart disease of hoopa coronary artery without angina pectoris] Onset: 05-29-2018 Chronic Delirium, dementia, and amnestic and other cognitive disorders (4 sources) Alzheimer's disease with late onset; Translations: [ALZHEIMERS DISEASE WITH LATE ONSET] Onset: 12-21-2022 Chronic Diabetes mellitus with complications (4 sources) Type 2 diabetes mellitus with hyperglycemia; Translations: [TYPE 2 DM W/HYPERGLYCEMIA] Onset: 09-26-2022 Chronic Diabetes mellitus without complication (2 sources) Type 2 diabetes mellitus without complications; Translations: [TYPE 2 DIABETES MELLITUS WITHOUT COMPLICATIONS] Onset: 05-29-2018 Chronic Disorders of lipid metabolism (2 sources) Hyperlipidemia, unspecified; Translations: [HYPERLIPIDEMIA, UNSPECIFIED] Onset: 05-29-2018 Chronic Esophageal disorders (2 sources) Gastro-esophageal reflux disease without esophagitis; Translations: [GASTRO-ESOPHAGEAL REFLUX DISEASE WITHOUT ESOPHAGITIS] Onset: 05-29-2018 Chronic Essential hypertension (8 sources) Essential (primary) hypertension; Translations: [ESSENTIAL (PRIMARY) HYPERTENSION] Onset: 05-29-2018 Chronic Other aftercare (1 source) longterm (current) use of antithrombotics/antip latelets; Translations: [ASSISTED (CURRENT) USE OF ANTITHROMBOTICS/ANTIP LATELETS] Onset: 05-29-2018 Episodic Other aftercare (2 sources) manager intermediate (current) use of aspirin; Translations: [ASSISTED (CURRENT) USE OF ASPIRIN] Onset: 05-29-2018 Episodic Other aftercare (1 source) 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 therapy; Translations: [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 TENDER CURRENT DRUG THERAPY] Onset: 12-28-2022 Episodic Other aftercare (1 source) manager intermediate (current) use of oral hypoglycemic drugs; Translations: [ASSISTED USE ORAL HYPOGLYCEMIC DX] Onset: 12-28-2022 Episodic Other injuries and conditions due to external causes (1 source) Unspecified injury of left wrist, hand and finger(s), initial encounter Episodic Other nervous system disorders (1 source) Unsteadiness on feet; Translations: [UNSTEADINESS ON FEET] Onset: 12-06-2022 Episodic Screening or history of mental health and substance abuse (1 source) Personal history of nicotine dependence; Translations: [PERSONAL HISTORY OF NICOTINE DEPENDENCE] Onset: 05-29-2018 Episodic Spondylosis; intervertebral disc disorders; other back problems (5 sources) Spondylosis without myelopathy or radiculopathy, lumbar region; Translations: [SPONDYLS W/O MYELO-/RADICULOP LUMB] Onset: 12-06-2022 Chronic Sprains and strains (1 source) Unspecified sprain of left wrist, initial encounter Episodic Unclassified (2 sources) Unknown / UNK(Unknown) Onset: 05-29-2018 Unclassified (1 source) longterm (current) use of oral hypoglycemic drugs; Translations: [WELDING MACHINE TENDER (CURRENT) USE OF ORAL HYPOGLYCEMIC DRUGS] Onset: 05-29-2018 Unclassified (1 source) Alzheimer's disease with late onset; Translations: [Alzheimer's disease with late onset] Onset: 01-06-2023 Unclassified (1 source) Unspecified injury of left wrist, hand and finger(s), initial encounter; Translations: [Unspecified injury of left wrist, hand and finger(s), initial encounter] Onset: 09-05-2022 Past or Other Problems Problem Classification Problem Date Documented Da te Episodic/Chronic Conditions associated with dizziness or vertigo (6 sources) Dizziness and giddiness; Translations: [Benign paroxysmal vertigo, unspecified ear] Onset: 12-26-2022 Episodic Coronary atherosclerosis and other heart disease (2 sources) Coronary angioplasty status; Translations: [Coronary angioplasty status] Onset: 12-28-2022 Episodic Results Test Name Value Interpretation Reference Range Facility Office Visiton 10-11-2023 Follow-up visit [id number] [facility] Zimm[facility] 1935 M Date Provider Department Center 10/11/2023 ЕЛЕНА SALMON KRI[facility] No family history on file Level of Service:09465 [place] POSTOP FOLLOW UP VISIT RELATED TO ORIGINAL PX Normal [facility] HPon 10-02-2023 [facility] Electrophysiology Note Reason for visit: bradycardia HPI: Edwin Orourke is a 88 y.o. 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 He was recommended EP consult by his neurology group as he was found to be bradycardic with a pulse of 40 to 50s per his . In December 2022 had his metoprolol discontinued due to having ER visit with [facility] for complaints of dizziness and was found to be bradycardic. Since stopping he has been fairly asymptomatic with no complaints of lightheadedness, dizziness, fatigue. He was also found to have AF , new onset in 2018. He was prescribed xarelto but was too expensive. stress test on 05/17/2018 that showed large anterior ischemia with EF 64%. He had a cath that showed high grade stenosis in the LAD and diagonal and he underwent BRONSON synergy stents and did well. He had a Holter monitor placed which revealed 7% ventricular ectopy which patient reports being asymptomatic, slowest heart report is 31 bpm and average heart rate 54 bpm and overall predominant rhythm was sinus bradycardia to sinus rhythm with frequent ventricular ectopy and first-degree AV block. His bradycardic event with 31 bpm revealed PACs. Patient reports being asymptomatic while wearing monitor. He is scheduled to start Donepizil by neuro for dementia. He denies chest pain, el LOC but does state exertional dyspnea. He is limited in his activities lately from these. ECG 05/04/2018: Atrial fibrillation, possible old septal DC. ECG 05/28/2018 showed sinus rhythm with 1st degree AV block and PAC. Possible anteroseptal DC. ECG today 03/21/2019: sinus rhythm with 1st degree AV block with PACs. Blood testing 02/06/2020: Hemoglobin 15.3, platelets 224, BUN 27, creatinine 1.08, potassium 4.0, LDL 92, triglycerides 115. Blood testing 07/02/2021: Hemoglobin 13, platelets 419, potassium 4.5, BUN 19, creatinine 1.1, LFTs normal, cholesterol 149, HDL 42, triglycerides 133, LDL 80. PMH: Past Medical History: Diagnosis Date Abnormal ECG Arrhythmia PSH: No past surgical history on file. SH: Social Determinants of Health Tobacco Use: Low Risk (04/26/2023) Patient History Smoking Tobacco Use: Never Smokeless Tobacco Use: Never Passive Exposure: Not on file Alcohol Use: Not on file Financial Resource Strain: Not on file Food Insecurity: Not on file Transportation Needs: Not on file Physical Activity: Not on file Stress: Not on file Social Connections: Not on file Intimate Partner Violence: Not on file Depression: Not on file Housing Stability: Not on file Allergies: No Known Allergies Weight: No weight available Visit Vitals Smoking Status Never Meds: Current Outpatient Medications on File Prior to Visit Medication Sig Dispense Refill acetaminophen (Tylenol) 500 mg tablet Take 500 mg by mouth in the morning, at noon, and at bedtime. Take 2 3 times day aspirin 81 mg EC tablet Take 1 tablet every day by oral route. donepezil (Aricept) 10 mg tablet Take 10 mg by mouth at bedtime. hydrALAZINE (Apresoline) 25 mg tablet Take 25 mg by mouth in the morning, at noon, and at bedtime. isosorbide mononitrate ER (Imdur) 60 mg 24 hr tablet Take 1 tablet (60 mg) by mouth once daily as directed. Do not crush or chew. 90 tablet 3 lisinopriL-hydrochlorothiazide 20-25 mg tablet Take 1 tablet by mouth in the morning. lovastatin (Mevacor) 40 mg tablet Take 40 mg by mouth in the morning. metFORMIN (Glucophage) 500 mg tablet Take 500 mg by mouth in the morning. naproxen (Naprosyn) 500 mg tablet Take 500 mg by mouth 1 (one) time each day. oxybutynin XL (Ditropan-XL) 10 mg 24 hr tablet Take 10 mg by mouth in the morning. tamsulosin (Flomax) 0.4 mg 24 hr capsule Take 0.8 mg by mouth in the morning. No current facility-administered medications on file prior to visit. ROS: Cardio Basic Cardiovascular Symptoms: no lightheadedness, no leg edema, no syncope, no orthopnea, no PND, no claudication, Constitutional Constitutional: no fever, no night sweats, no significant weight gain, no significant weight loss, no exercise intolerance Eyes Eyes: no dry eyes, no irritation, no vision change ENMT Ears: no difficulty hearing, no ear pain Nose: no frequent nosebleeds, Mouth/Throat: no sore throat, no bleeding gums, no snoring, no dry mouth, no mouth ulcers, no oral abnormalities, no teeth problems Respiratory Respiratory: no cough, no wheezing, no coughing up blood, no sleep apnea Musculoskeletal Musculoskeletal: no muscle aches, no muscle weakness, joint pain+, no back pain, no swelling in the extremities Integumentary Skin no rash, no ulcer, no varicosities, no discoloration, no pruritus Neurologic Neurologic: no loss of consciousness, no weakness, no numbness, no seizures, no dizziness, no headaches Psychiatric Psych: no depression, feeling safe in relationship, no alcohol abuse, Hematolog (more content not included)... [facility] NURSNOTEon 10-02-2023 NURSNOTE RN educated pt on d/ c instructions. RN encouraged pt to voice any questions or concerns. Pt verbalizes no questions or concerns at this time. Pt was wheeled off of unit with all of belongings. [facility] NURSNOTE CHG wipes and betadi ne nasal swabs completed. [facility] Orders Onlyon 10-02-2023 Orders Only [id number] Edwin Orourke 1935 [facility] Provider Department Center 10/02/2023 EMETERIO GONZALEZ [facility] No family history on file [facility] Orders Onlyon 09-25-2023 Orders Only [id number] Edwin Orourke 1935 [facility] Provider Department Center 09/25/2023 EMETERIO GONZALEZ [facility] No family history on file [facility] Telemedicineon 08-22-2023 Telemedicine [id number] Edwin Orourke 1935 [facility] Provider Department Center 08/22/2023 241MIKE METZGER CARD [facility] No family history on file Level of Service:77887 [place] PHYS/QHP TELEPHONE EVALUATION 11-20 MIN [facility] 36on 07-27-2023 36 No vm [facility] Office Visiton 04-26-2023 Follow-up visit [id number] Edwin Orourke 1935 M [facility] Provider Department Center 04/26/2023 JOAQUÍN LERMA CARD [facility] No family history on file Level of Service:84341 [place] OFFICE/OUTPATIENT ESTABLISHED MOD MDM 30-39 MIN Reason for Visit and Comments: Follow-up [409784] - 2 month follow up [facility] MR lumbar spine wo conon MR lumbar spine wo con [facility] [place] [address] MRI Report Signed Patient: Edwin Orourke MR#: [id number] : 1935 Acct:[id number] Age/Sex: 88 / M ADM Date: 03/24/23 Loc: MR Room: Type: [facility] Attending Dr: Ramon Martines MD Copies to: Ramon Martines MD Ordering Provider: Ramon Martines MD Date of Service: 03/24/23 MR/MR lumbar spine wo con: R27.0 MR lumbar spine wo con 03/24/2023 6:19 PM SIGNS AND SYMPTOMS: Chronic back pain with difficulty ambulating PROTOCOL: Multiplanar multisequence MR images of the lumbar spine were obtained without IV contrast COMPARISON: None. FINDINGS: There is 5 mm of anterolisthesis of L4 upon L5 secondary to facet hypertrophy.. There is preservation of vertebral body heights. There is severe disc height loss at T11-T12, T12-L1, L1-L2, and L4-L5. Lesser degrees of disc height loss are noted throughout otherwise. There is bony fusion across the L3-L4 intervertebral disc. There is Modic type I endplate edema at T11-T12, T12-L1, and L1-L2. The conus terminates at the superior endplate of the L1 vertebral body level. No epidural or paraspinous fluid collection is appreciated. At T12-L1: There is a circumferential disc bulge with endplate osteophyte formation and facet hypertrophy. There is mild spinal canal narrowing with moderate bilateral neural foraminal narrowing. At L1-L2: There is a circumferential disc bulge with facet hypertrophy and endplate osteophyte formation contributing to moderate spinal canal stenosis and moderate bilateral neural foramina. At L2-L3: There is a circumferential disc bulge. There is facet and ligament flavum degenerative change. There is moderate spinal canal stenosis with mild to moderate bilateral neural foraminal narrowing. At L3-L4: There is fusion across intervertebral disc space with endplate osteophyte formation and facet hypertrophy. There is moderate to severe right and moderate left neural foraminal narrowing. At L4-L5: There is 5 mm of anterolisthesis of L4 upon L5. There is a circumferential disc bulge with facet hypertrophy contributing to severe spinal canal stenosis. There is moderate to severe left and severe right neural foraminal narrowing with mass effect on the exiting L4 nerve roots, right greater than left. At L5-S1: There is a circumferential disc bulge with facet hypertrophy. There is moderate spinal canal narrowing with endplate osteophyte formation contributing to moderate bilateral neural foramen. MR/MR lumbar spine wo con IMPRESSION: At L4-L5: There is 5 mm of anterolisthesis of L4 upon L5. There is a circumferential disc bulge with facet hypertrophy contributing to severe spinal canal stenosis. There is moderate to severe left and severe right neural foraminal narrowing with mass effect on the exiting L4 nerve roots, right greater than left. At L3-L4: There is fusion across intervertebral disc space with endplate osteophyte formation and facet hypertrophy. There is moderate to severe right and moderate left neural foraminal narrowing. Additional significant but lesser degrees of degenerative changes are noted throughout, as detailed above. Impression dictated by: Mamta Barrios M.D.03/25/2023 2:26 PM Dictation Location: [place] [address] Transcribed By: [facility] 03/25/23 1426 Dictated By: Mamta Barrios II, MD 03/25/23 1419 Signed By: 03/25/23 1426 [facility] Orders Onlyon 03-15-2023 Orders Only [id number] Edwin Orourke 1935 M Date Provider Department [place] 03/15/2023 YURY RANGEL [facility] Hos No family history on file Normal [facility] Office Visiton 03-14-2023 Follow-up visit [id number] Edwin Orourke 1935 M [facility] Provider Department [place] 03/14/2023 JOAQUÍN LERMA [facility] No family history on file Level of Service:96639 [place] OFFICE/OUTPATIENT ESTABLISHED MOD MDM 30-39 MIN Normal [facility] PROF CHEM 8 (BAS METB)on Anion gap [Moles/Vol] 10.7 mmol/L Normal [facility] Comment on above: Performed By: #### TSH #### [facility] [address] [place] [address] Dr. Yue Vega Calcium [Mass/Vol] 9.4 mg/dL Normal 8.5-10.1 [facility] Comment on above: Performed By: #### TSH #### [facility] [address] [place] [address] Dr. Yue Vega Chloride [Moles/Vol] 97 mmol/L Critically low 98-107 [facility] Comment on above: Performed By: #### TSH #### [facility] [address] [place] [address] [address] Yue Vega CO2 [Moles/Vol] 31.8 mmol/L Normal 21.0-32.0 [facility] Comment on above: Performed By: #### TSH #### [facility] [address] [place] [address] Dr. Yue Vega Creatinine [Mass/Vol] 1.23 mg/dL Normal 0.70-1.30 [facility] Comment on above: Performed By: #### TSH #### [facility] [address] [address] [address] Yue Vega EGFR-AF TANZANIAN >60 Normal >=60 [facility] Comment on above: Performed By: #### TSH #### [facility] [address] [place] [address] Dr. Yue Vega EGFR-NON AF TANZANIAN 56 mL/min/1.73m2 Critically low >=60 [facility] Comment on above: Performed By: #### TSH #### [facility] [address] [address] [address] Yue Vega Glucose [Mass/Vol] 153 mg/dL Critically high 74-106 [facility] Comment on above: Performed By: #### TSH #### [facility] [address] [address] [address] Yue Vega Potassium [Moles/Vol] 4.5 mmol/L Normal 3.5-5.1 [facility] Comment on above: Performed By: #### TSH #### [facility] [address] [place] [address] Dr. Yue Vega Sodium [Moles/Vol] 135 mmol/L Critically low 136-145 [facility] Comment on above: Performed By: #### TSH #### [facility] [address] [place], [place] [address] Dr. Yue Vega Urea nitrogen [Mass/Vol] 22.0 mg/dL Critically high 7.0-18.0 [facility] Comment on above: Performed By: #### TSH #### [facility] [address] [place], [place] [address] Dr. Yue Vega Urea nitrogen/Creatin ine [Mass ratio] 17.9 mg/mg Normal [facility] Comment on above: Performed By: #### TSH #### [facility] [address] [place], [place] [address] Dr. Yue Vega Office Visiton 02-15-2023 Follow-up visit [id number] Edwin Orourke 1935 M Date Provider Department Center 02/15/2023 [id number]-GHIMLMVUWSARAH WILSON [facility] No family history on file Level of Service:95140 [place] OFFICE/OUTPATIENT ESTABLISHED MOD MDM 30-39 MIN Normal [facility] Creatinine (Bld) [Mass/Vol]O rdered By: Suzi Murray on 01-06-2023 Creatinine [Mass/Vol] 1.2 mg/dL 0.6-1.3 [facility] Comment on above: ER/ESD physician is notified/shown all I STAT results.Critical values may be confirmed by laboratory testing ifdeemed necessary by ER attending doctor. MR head/brain wo/w conon MR head/brain wo/w con [facility] [place] [address] MRI Report Signed Patient: Edwin Orourke MR#: [id number] : 1935 Acct:[id number] Age/Sex: 87 / M ADM Date: 01/06/23 Loc: MR Room: Type: [facility] Attending Dr: Jose Eduardo Murray DO Copies to: Suzi Murray DO Ordering Provider: Suzi Murray DO Date of Service: 01/06/23 MR/MR head/brain wo/w con: G30.1 MR head/brain wo/w con 01/06/2023 3:13 PM SIGN AND SYMPTOMS: Alzheimer's dementia PROTOCOL: Multiplanar multisequence MR images of brain were obtained with and without IV contrast CONTRAST: 18 mL of intravenous ProHance COMPARISON: None. FINDINGS: Extra axial spaces: Diffuse age-related cortical atrophy is noted. Hemorrhage: None. Ventricular system: Within normal limits. Basal cisterns: Within normal limits and not effaced. Cerebral parenchyma: Periventricular and subcortical white matter T2 and T2 FLAIR hyperintense foci are noted consistent with chronic microvascular ischemic change. There is also gliosis and encephalomalacia along the medial temporal lobe on the right extending into the right subinsular white matter suggesting a remote infarct. There is no focal postcontrast enhancement. Midline shift: None.. Cerebellum: Within normal limits. Brainstem: Within normal limits. OTHER: Calvarium: Normal marrow signal. Vascular system: Satisfactory flow voids within the anterior and posterior circulation. Visualized Paranasal sinuses: Mucosal thickening is noted in the maxillary sinuses and left ethmoid air cells. Visualized Orbits: Within normal limits. Visualized upper cervical spine: Within normal limits. Sella and skull base: Within normal limits. MR/MR head/brain wo/w con IMPRESSION: No acute intracranial pathology or abnormal postcontrast enhancement. 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 There is diffuse age-related cortical atrophy with chronic microvascular ischemic change. Impression dictated by: Mamta Barrios M.D.01/06/2023 5:26 PM Dictation Location: [place] [address] Transcribed By: [facility] 01/06/23 172 Dictated By: Mamta Barrios II, MD 01/06/231719 Signed By: 01/06/23 172 [facility] Office Visiton 12-28-2022 Follow-up visit [id number] Edwin Orourke 1935 M Date Provider Department Center 12/28/2022 Yanira-ЕЛЕНА LOU BH CARD [facility] No family history on file Level of Service:26775 [place] OFFICE/OUTPATIENT ESTABLISHED MOD MDM 30-39 MIN Reason for Visit and Comments: Dizziness [753705] Fatigue [46] Normal [facility] BNPon 12-26-2022 Natriuretic peptide B (Bld) [Mass/Vol] 483.0 pg/mL Normal <=1,800.0 [facility] Comment on above: Performed By: #### TSH #### [facility] [address] [place] [address] Dr. Yue Vega CARDIAC MAMTA ADMITon 023 CK [Catalytic activity/Vol] 121 U/L Normal 39-308 [facility] Comment on above: Performed By: #### TSH #### [facility] [address] [address] [address] Yue Vega CK.MB [Mass/Vol] 1.73 ng/mL Normal <=3.60 The [facility] Comment on above: Performed By: #### TSH #### [facility] [address] [place] [address] Dr. Yue Vega HSTROP 11.9 pg/mL Normal 4.0-76.1 [facility] Comment on above: Result Comment: CUT-OFF POINTS HAVE BEEN ESTABLISHED BASED ON THE FOURTH UNIVERSAL DEFINITIONS OF MYOCARDIAL INFARCTION. THE UPPER REFERENCE LIMIT (URL) OF TROPONIN, DEFINED THE 99TH PERCENTILE OF cTnI DISTRIBUTION IN A REFERENCE POPULATION, HAS BEEN CONFIRMED THE DECISION THRESHOLD FOR DC DIAGNOSIS. Performed By: #### T SH #### [facility] [address] [place] [address] Dr. Yue Vega CARI 113 ng/mL Critically high 16-96 The [facility] Comment on above: Performed By: #### TSH #### [facility] [address] [address] [address] Yue Vega CBC AUTO DIFFon 12-26-2022 BASO # 0.1 103/ul Normal 0.0-0.1 [facility] Comment on above: Performed By: #### TSH #### [facility] [address] [place] [address] Dr. Yue Vega Basophils/100 WBC (Bld) 0.5 % Normal 0.2-2.0 [facility] Comment on above: Performed By: #### TSH #### [facility] [address] [place] [address] Dr. Yue Vega EO # 0.0 103/ul Normal 0.0-0.7 [facility] Comment on above: Performed By: #### TSH #### [facility] [address] [address] [address] Yue Vega Eosinophils/100 WBC (Bld) 0.3 % Critically low 0.9-7.0 [facility] Comment on above: Performed By: #### TSH #### [facility] [address] [place] [address] Dr. Yue Vega Erythrocyte distribution width (RBC) [Ratio] 12.4 % Normal 11.0-15.0 [facility] Comment on above: Performed By: #### TSH #### [facility] [address] [place] [address] Dr. Yue Vega Hematocrit (Bld) [Volume fraction] 42.7 % Normal 42.0-54.0 [facility] Comment on above: Performed By: #### TSH #### [facility] [address] [place] [address] Dr. Yue Vega Hemoglobin (Bld) [Mass/Vol] 14.5 g/dL Normal 14.0-18.0 [facility] Comment on above: Performed By: #### TSH #### [facility] [address] [place] [address] Dr. Yue Vega IG # 0.05 10e3/ul Critically high 0.00-0.03 [facility] Comment on above: Performed By: #### TSH #### [facility] [address] [place] [address] Dr. Yue Vega IG % 0.4 % Normal 0.0-0.5 [facility] Comment on above: Performed By: #### TSH #### [facility] [address] [place] [address] Dr. Yue Vega LYMPH # 1.4 103/ul Normal 1.2-3.8 [facility] Comment on above: Performed By: #### TSH #### [facility] [address] [place] [address] Dr. Yue Vega Lymphocytes/100 WBC (Bld) 10.7 % Critically low 20.5-60.0 [facility] Comment on above: Performed By: #### TSH #### [facility] [address] [place] [address] Dr. Yue Vega MANUAL DIFF REQ NO Normal [facility] Comment on above: Performed By: #### TSH #### [facility] [address] [place] [address] Dr. Yue Vega MCH (RBC) [Entitic mass] 30.7 pg Normal 25.9-34.0 [facility] Comment on above: Performed By: #### TSH #### [facility] [address] [place] [address] Dr. Yue Vega MCHC (RBC) [Mass/Vol] 34.0 g/dL Normal 29.9-35.2 [facility] Comment on above: Performed By: #### TSH #### [facility] [address] [place] [address] Dr. Yue Vega MCV (RBC) [Entitic vol] 90.3 fL Normal 80.0-94.0 [facility] Comment on above: Performed By: #### TSH #### [facility] [address] [place] [address] Dr. Yue Vega MONO # 0.5 103/ul Normal 0.3-0.8 [facility] Comment on above: Performed By: #### TSH #### [facility] [address] [place] [address] Dr. Yue Vega Monocytes/100 WBC (Bld) 4.2 % Normal 1.7-12.0 [facility] Comment on above: Performed By: #### TSH #### [facility] [address] [place] [address] Dr. Yue Vega NEUT # 10.8 103/ul Critically high 1.4-6.5 [facility] Comment on above: Performed By: #### TSH #### [facility] [address] [place] [address] Dr. Yue Vega Neutrophils/100 WBC (Bld) 83.9 % Critically high 43.0-75.0 The [facility] Comment on above: Performed By: #### TSH #### [facility] [address] [place], [place] [address] Dr. Yue Vega Platelet mean volume (Bld) [Entitic vol] 9.6 fL Normal 9.5-13.5 [facility] Comment on above: Performed By: #### TSH #### [facility] [address] [address] [address] Yue Vega PLT 223 103/ul Normal 150-450 [facility] Comment on above: Performed By: #### TSH #### [facility] [address] [address] [address] Yue Vega RBC 4.73 106/ul Normal 4.70-6.10 [facility] Comment on above: Performed By: #### TSH #### [facility] [address] [address] [address] Yue Vega WBC 12.9 103/ul Critically high 4.0-11.0 [facility] Comment on above: Performed By: #### TSH #### [facility] [address] HEAD WO CONon 12-26-2022 CT HEAD WO CON CT HEAD WO CON 2022 1:33 PM EDT Provided History: Dizziness Comparison: None. Technique: Using multidetector thin collimation helical acquisition technique, axial, coronal and sagittal CT images from the skull base to the vertex were obtained without intravenous contrast. Findings: No midline shift or intracranial hemorrhage.. The ventricles are proportionate to the cerebral sulci. The van to white matter differentiation of the cerebral hemispheres is preserved. The basal cisterns are patent. Calcification of the supraclinoid internal carotid arteries. Chronic lacunar infarcts in the subinsular/lentiform nuclei, right greater than left. Moderate confluent white matter hypoattenuation suggesting small vessel ischemic disease. 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 There is moderate cerebral atrophy. The ventricles otherwise do not appear enlarged out of proportion to the cerebral sulci. Mild to moderate cerebellar atrophy. The visualized paranasal sinuses are clear. The mastoid air cells are clear. Bilateral pseudophakia. Impression: No acute intracranial pathology. 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 Electronically authenticated by: SUZI NANCE Date: 2022-12-26 14:21 Normal [facility] ER URINE PROFILEon 3 Bilirubin Ql (U) Negative Normal NEGATIVE [facility] Comment on above: Performed By: #### YAMIL UMICRO #### [facility] [address] [address] [address] Yue Vega Clarity (U) CLEAR Normal CLEAR [facility] Comment on above: Performed By: #### ERUElsie UMICRO #### [facility] [address] [address] [address] Yue Vega Color (U) LT. YELLOW Normal YELLOW [facility] Comment on above: Performed By: #### YAMIL UMICRO #### [facility] [address] [place] [address] Dr. Yue ALCCOER A micrscopic examina tion will be performed if indicated. Normal [facility] Comment on above: Performed By: #### YAMIL UMICRO #### [facility] [address] [address] [address] Yue Vega Glucose Ql (U) 250 mg/dl Abnormal NEGATIVE [facility] Comment on above: Performed By: #### YAMIL UMICRO #### [facility] [address] [address] [address] Yue Vega Hemoglobin Ql (U) Negative Normal NEGATIVE [facility] Comment on above: Performed By: #### YAMIL UMICRO #### [facility] [address] [address] [address] Yue Vega Ketones Ql (U) Negative Normal NEGATIVE [facility] Comment on above: Performed By: #### YAMIL UMICRO #### [facility] [address] [address] [address] Yue Vega LEUKOCYTES Negative Normal NEGATIVE [facility] Comment on above: Performed By: #### YAMIL UMICRO #### [facility] [address] [place] [address] Dr. Yue Vega Nitrite Ql (U) Negative Normal NEGATIVE [facility] Comment on above: Performed By: #### DEEJAY LOBO #### [facility] [address] [place] [address] Dr. Yue Vega pH (U) 7.0 [pH] Normal 5-9 [facility] Comment on above: Performed By: #### SERG LOBORO #### [facility] [address] [place] [address] Dr. Yue Vega Protein (U) [Mass/Vol] 30 mg/dL Abnormal NEGATIVE/ TRACE [facility] Comment on above: Performed By: #### DEEJAY LOBO #### [facility] [address] [place] [address] Dr. Yue Vega SPEC GRAVITY 1.015 Normal 1.005-<=1. 025 [facility] Comment on above: Performed By: #### DEEJAY LOBO #### [facility] [address] [place] [address] Dr. Yue Vega UR MICRO IND INDICATED Normal [facility] Comment on above: Performed By: #### DEEJAY LOBO #### [facility] [address] [place] [address] Dr. Yue Vega Urobilinogen Qn (U) 0.2 {Anat'U}/dL Normal 0.2 - 1.0 [facility] Comment on above: Performed By: #### SERG LOBORO #### [facility] [address] [place] [address] Dr. Yue Vega PROF 14(COMP METB)on 023 Albumin [Mass/Vol] 4.1 g/dL Normal 3.4-5.0 [facility] Comment on above: Performed By: #### TSH #### [facility] [address] [place] [address] Dr. Yue Vega Albumin/Globulin [Mass ratio] 1.1 {ratio} Normal [facility] Comment on above: Performed By: #### TSH #### [facility] [address] [address] [address] Yue Vega ALP [Catalytic activity/Vol] 110 U/L Normal 46-116 [facility] Comment on above: Performed By: #### TSH #### [facility] [address] [place] [address] Dr. Yue Vega ALT [Catalytic activity/Vol] 24 U/L Normal 16-63 [facility] Comment on above: Performed By: #### TSH #### [facility] [address] [address] [address] Yue Vega Anion gap [Moles/Vol] 9.5 mmol/L Normal [facility] Comment on above: Performed By: #### TSH #### [facility] [address] [place] [address] Dr. Yue Vega AST [Catalytic activity/Vol] 25 U/L Normal 15-37 [facility] Comment on above: Performed By: #### TSH #### [facility] [address] [place] [address] Dr. Yue Vega Bilirubin [Mass/Vol] 1.2 mg/dL Critically high 0.2-1.0 [facility] Comment on above: Performed By: #### TSH #### [facility] [address] [place] [address] Dr. Yue Vega Calcium [Mass/Vol] 9.3 mg/dL Normal 8.5-10.1 [facility] Comment on above: Performed By: #### TSH #### [facility] [address] [place] [address] Dr. Yue Vega Chloride [Moles/Vol] 96 mmol/L Critically low 98-107 [facility] Comment on above: Performed By: #### TSH #### [facility] [address] [place] [address] Dr. Yue Vega CO2 [Moles/Vol] 29.4 mmol/L Normal 21.0-32.0 [facility] Comment on above: Performed By: #### TSH #### [facility] [address] [place] [address] Dr. Yue Vega Creatinine [Mass/Vol] 1.09 mg/dL Normal 0.70-1.30 [facility] Comment on above: Performed By: #### TSH #### [facility] [address] [address] [address] Yue Vega EGFR-AF TANZANIAN >60 Normal >=60 [facility] Comment on above: Performed By: #### TSH #### [facility] [address] [address] [address] Yue Vega EGFR-NON AF TANZANIAN >60 Normal >=60 [facility] Comment on above: Performed By: #### TSH #### [facility] [address] [address] [address] Yue Vega Globulin (S) [Mass/Vol] 3.8 g/dL Normal [facility] Comment on above: Performed By: #### TSH #### [facility] [address] [place] [address] Dr. Yue Vega Glucose [Mass/Vol] 218 mg/dL Critically high 74-106 [facility] Comment on above: Performed By: #### TSH #### [facility] [address] [address] [address] Yue Vega Potassium [Moles/Vol] 3.9 mmol/L Normal 3.5-5.1 [facility] Comment on above: Performed By: #### TSH #### [facility] [address] [address] [address] Yue Vega Protein [Mass/Vol] 7.9 g/dL Normal 6.4-8.2 [facility] Comment on above: Performed By: #### TSH #### [facility] [address] [address] [address] Yue Vega Sodium [Moles/Vol] 131 mmol/L Critically low 136-145 [facility] Comment on above: Performed By: #### TSH #### [facility] [address] [address] [address] Yue Vega Urea nitrogen [Mass/Vol] 19.0 mg/dL Critically high 7.0-18.0 [facility] Comment on above: Performed By: #### TSH #### [facility] [address] [place] [address] Dr. Yue Vega Urea nitrogen/Creatin ine [Mass ratio] 17.4 mg/mg Normal [facility] Comment on above: Performed By: #### TSH #### [facility] [address] [place] [address] Dr. Yue Vega PROTIMEon 12-26-2022 INR Coag (PPP) [Relative time] 1.00 {INR} Normal [facility] Comment on above: Performed By: #### PTT, PT #### [facility] [address] [place] [address] Dr. Yue Vega INR GUIDELINES SEE BELOW Normal [facility] Comment on above: Result Comment: DESIRED INR: 2.0 - 3.0 C ONDITIONS NOT LISTED BELOW 2.5 - 3.5 FOR PROSTHETIC HEART VALVE REPLACEMENT 2.5 - 3.5 RECURRENT THROMBOSIS Performed By: #### P TT, PT #### [facility] [address] [place] [address] Dr. Yue Vega PT Coag (PPP) [Time] 10.6 s Normal 9.0-11.6 [facility] Comment on above: Performed By: #### PTT, PT #### [facility] [address] [place] [address] Dr. Yue Vega PTTon 12-26-2022 aPTT Coag (Bld) [Time] 29.8 s Normal 22.3-36.2 [facility] Comment on above: Performed By: #### PTT, PT #### [facility] [address] [place] [address] Dr. Yue Vega TSHon 12-26-2022 TSH 2.693 uIU/mL Normal 0.358-3.74 0 [facility] Comment on above: Performed By: #### TSH #### [facility] [address] [place] [address] Dr. Yue Vega URINE MICROSCOPIC ONLYon BACTERIA NONE SEEN Normal NONE SEEN [facility] Comment on above: Performed By: #### SERG LOBORO #### [facility] [address] [place], [place] [id number] Dr. Yue Vega Bacteria identified Cx Nom (U) NOT INDICATED Normal [facility] Comment on above: Performed By: #### ERUR, UMICRO #### [facility] [address] [place] [address] Dr. Yue Vega CAST NONE SEEN Normal NONE SEEN [facility] Comment on above: Performed By: #### ERUR, UMICRO #### [facility] [address] [place] [address] Dr. Yue Vega Crystals LM Nom (Urine sed) NONE SEEN Normal NONE SEEN [facility] Comment on above: Performed By: #### ERUR, UMICRO #### [facility] [address] [place] [address] Dr. Yue Vega Epithelial cells LM Ql (Urine sed) NONE SEEN Normal NONE SEEN /RARE [facility] Comment on above: Performed By: #### ERUR, UMICRO #### [facility] [address] [place] [address] Dr. Yue Vega MUCOUS NONE SEEN Normal NONE SEEN [facility] Comment on above: Performed By: #### ERUR, UMICRO #### [facility] [address] [place] [address] Dr. Yue Vega RBC 0-2 Normal 0-2 [facility] Comment on above: Performed By: #### ERUR, UMICRO #### [facility] [address] [place] [address] Dr. Yue Vega WBC NONE SEEN Normal NONE SEEN [facility] Comment on above: Performed By: #### ERUR, UMICRO #### [facility] [address] [place] [address] Dr. Yue Vega XR CHEST 1 Von 12-26-2022 XR CHEST 1 V EXAM: XR CHEST 1 V HISTORY: Chest pain. COMPARISON: None. TECHNIQUE: AP erect portable view chest performed. FINDINGS: The trachea is midline. There is mild enlargement of the cardiac silhouette. The mediastinal and hilar shadows are unremarkable. Elevation of the left hemidiaphragm just inferior to the level of the left hilum. There is no consolidation or infiltrates. There is no pleural effusion or pulmonary vascular congestion. There is no pneumothorax. The bony structures are osteopenic. There are moderate degenerative changes at the acromioclavicular and glenohumeral articulations bilaterally. There is loss of the acromiohumeral interval bilaterally suggesting chronic tears of the rotator cuff. IMPRESSION: There is no acute cardiopulmonary process. Elevation of the left hemidiaphragm just inferior to the level of the left hilum. There is no consolidation or infiltrate. There is no pleural effusion or pulmonary vascular congestion. Electronically authenticated by: SAYRA GUILLAUME Date: 2022-12-26 13:12 Normal [facility] METHYLMALONIC ACID (MMA)on 0 12-25-2022 Methylmalonic Acid, Serum 180 nmol/L Normal 0-378 [facility] Comment on above: Performed By: #### MMA2 #### [facility] [address] [place] [address] Dr. Yue Vega TSHon 12-21-2022 TSH 2.790 uIU/mL Normal 0.358-3.74 0 [facility] Comment on above: Performed By: #### TSH #### [facility] [address] [place] [address] Dr. Yue Vega VITAMIN B12on 12-21-2022 Cobalamin (Vitamin B12) [Mass/Vol] 919.0 pg/mL Normal 193.0-986. 0 [facility] Comment on above: Performed By: #### TSH #### [facility] [address] [place] [address] Dr. Yue Vega CBC AUTO DIFFon 09-26-2022 BASO # 0.1 103/ul Normal 0.0-0.1 [facility] Comment on above: Performed By: #### CBC #### [facility] [address] [place] [address] Dr. Yue Vega Basophils/100 WBC (Bld) 0.5 % Normal 0.2-2.0 [facility] Comment on above: Performed By: #### CBC #### [facility] [address] [place] [address] Dr. Yue Vega EO # 0.2 103/ul Normal 0.0-0.7 [facility] Comment on above: Performed By: #### CBC #### [facility] [address] [address] [address] Yue Vega Eosinophils/100 WBC (Bld) 2.1 % Normal 0.9-7.0 [facility] Comment on above: Performed By: #### CBC #### [facility] [address] [place] [address] Dr. Yue Vega Erythrocyte distribution width (RBC) [Ratio] 12.3 % Normal 11.0-15.0 [facility] Comment on above: Performed By: #### CBC #### [facility] [address] [place] [address] Dr. Yue Vega Hematocrit (Bld) [Volume fraction] 42.0 % Normal 42.0-54.0 [facility] Comment on above: Performed By: #### CBC #### [facility] [address] [place] [address] Dr. Yue Vega Hemoglobin (Bld) [Mass/Vol] 13.9 g/dL Critically low 14.0-18.0 [facility] Comment on above: Performed By: #### CBC #### [facility] [address] [place] [address] Dr. Yue Vega IG # 0.03 10e3/ul Normal 0.00-0.03 [facility] Comment on above: Performed By: #### CBC #### [facility] [address] [place] [address] Dr. Yue Vega IG % 0.3 % Normal 0.0-0.5 [facility] Comment on above: Performed By: #### CBC #### [facility] [address] [place] [address] Dr. Yue Vega LYMPH # 1.9 103/ul Normal 1.2-3.8 [facility] Comment on above: Performed By: #### CBC #### [facility] [address] [place] [address] Dr. Yue Vega Lymphocytes/100 WBC (Bld) 19.8 % Critically low 20.5-60.0 [facility] Comment on above: Performed By: #### CBC #### [facility] [address] [place] [address] Dr. Yue Vega MANUAL DIFF REQ NO Normal [facility] Comment on above: Performed By: #### CBC #### [facility] [address] [place] [address] Dr. Yue Vega MCH (RBC) [Entitic mass] 30.5 pg Normal 25.9-34.0 [facility] Comment on above: Performed By: #### CBC #### [facility] [address] [place] [address] Dr. Yue Vega MCHC (RBC) [Mass/Vol] 33.1 g/dL Normal 29.9-35.2 [facility] Comment on above: Performed By: #### CBC #### [facility] [address] [place] [address] Dr. Yue Vega MCV (RBC) [Entitic vol] 92.3 fL Normal 80.0-94.0 [facility] Comment on above: Performed By: #### CBC #### [facility] [address] [place] [address] Dr. Yue Vega MONO # 0.9 103/ul Critically high 0.3-0.8 [facility] Comment on above: Performed By: #### CBC #### [facility] [address] [place] [address] Dr. Yue Vega Monocytes/100 WBC (Bld) 9.5 % Normal 1.7-12.0 [facility] Comment on above: Performed By: #### CBC #### [facility] [address] [place] [address] Dr. Yue Vega NEUT # 6.4 103/ul Normal 1.4-6.5 [facility] Comment on above: Performed By: #### CBC #### [facility] [address] [place] [address] Dr. Yue Vega Neutrophils/100 WBC (Bld) 67.8 % Normal 43.0-75.0 [facility] Comment on above: Performed By: #### CBC #### [facility] [address] [address] [address] Yue Vega Platelet mean volume (Bld) [Entitic vol] 9.4 fL Critically low 9.5-13.5 [facility] Comment on above: Performed By: #### CBC #### [facility] [address] [address] [address] Yue Vega PLT 264 103/ul Normal 150-450 [facility] Comment on above: Performed By: #### CBC #### [facility] [address] [address] [address] Yue Vega RBC 4.55 106/ul Critically low 4.70-6.10 [facility] Comment on above: Performed By: #### CBC #### [facility] [address] [address] [address] Yue Vega WBC 9.4 103/ul Normal 4.0-11.0 [facility] Comment on above: Performed By: #### CBC #### [facility] [address] [address] [address] Yue Vega GLYCOHEMOGLOBIN A1Con 2021 ADA RECOMMENDATION SEE BELOW Normal [facility] Comment on above: Result Comment: ADA RECOMMENDED LIMIT 4. 0 - 6.0 ADA THERAPEUTIC TARGET < 7.0 ACTION SUGGESTED > 7.0 Performed By: #### A 1C #### [facility] [address] [place] [address] Dr. Yue Vega Glucose [Mass/Vol] 169 mg/dL Normal [facility] Comment on above: Performed By: #### A1C #### [facility] [address] [place] [address] Dr. Yue Vega HbA1c (Bld) [Mass fraction] 7.5 % Critically high 4.5-6.2 [facility] Comment on above: Performed By: #### A1C #### [facility] [address] [place] [address] Dr. Yue Vega LIPID PROFILEon 09-26-2022 CHOL-HDL RATIO NORM SEE BELOW Normal [facility] Comment on above: Result Comment: 3.3 - 4.4 LOW RISK 4.4 - 7.1 AVERAGE RISK 7.1 - 11.0 MODERATE RISK >11.0 HIGH RISK Performed By: #### T SH #### [facility] [address] [address] [address] Yue Vega Cholesterol [Mass/Vol] 134 mg/dL Normal <=200 [facility] Comment on above: Performed By: #### TSH #### [facility] [address] [address] [address] Yue Vega Cholesterol in HDL [Mass/Vol] 51 mg/dL Normal 40-60 [facility] Comment on above: Performed By: #### TSH #### [facility] [address] [address] [address] Yue Vega Cholesterol in LDL [Mass/Vol] 63.4 mg/dL Normal [facility] Comment on above: Performed By: #### TSH #### [facility] [address] [place] [address] Dr. Yue Vega Cholesterol.tota l/Cholesterol in HDL [Mass ratio] 2.6 {ratio} Normal [facility] Comment on above: Performed By: #### TSH #### [facility] [address] [place] [address] Dr. Yue Vega HDL NORMAL > or = 60 mg/dl - LO W CARDIOVASCULAR RISK <40 mg/dl - HIGH CARDIOVASCULAR RISK Normal [facility] Comment on above: Performed By: #### TSH #### [facility] [address] [place] [address] Dr. Yue Vega LDL CALC NORMAL SEE BELOW Normal [facility] Comment on above: Result Comment: <100 mg/dl OPTIMAL 100 - 129 mg/dl NEAR OR ABOVE OPTIMAL 130 - 159 mg/dl BORDERLINE HIGH 160 - 189 mg/dl HIGH >190 mg/dl VERY HIGH Performed By: #### T SH #### [facility] [address] [address] [address] Yue Vega Triglyceride [Mass/Vol] 98 mg/dL Normal <=150 [facility] Comment on above: Performed By: #### TSH #### [facility] [address] [address] [address] Yue Vega VLDL CALC 19.6 mg/dL Normal [facility] Comment on above: Performed By: #### TSH #### [facility] [address] [address] [address] Yue Vega LIVER PROFILEon 09-26-2022 Albumin [Mass/Vol] 3.8 g/dL Normal 3.4-5.0 [facility] Comment on above: Performed By: #### LIPID, BMP, LIVER ### # [facility] [address] [address] [address] Yue Vega Albumin/Globulin [Mass ratio] 0.9 {ratio} Normal [facility] Comment on above: Performed By: #### LIPID, BMP, LIVER ### # [facility] [address] [place] [address] Dr. Yue Vega ALP [Catalytic activity/Vol] 94 U/L Normal 46-116 [facility] Comment on above: Performed By: #### LIPID, BMP, LIVER ### # [facility] [address] [place] [address] Dr. Yue Vega ALT [Catalytic activity/Vol] 34 U/L Normal 16-63 [facility] Comment on above: Performed By: #### LIPID, BMP, LIVER ### # [facility] [address] [place] [address] Dr. Yue Vega AST [Catalytic activity/Vol] 30 U/L Normal 15-37 [facility] Comment on above: Performed By: #### LIPID, BMP, LIVER ### # [facility] [address] [address] [address] Yue Vega BILI, CONJUGATED 0.2 mg/dL Normal 0.0-0.2 [facility] Comment on above: Performed By: #### LIPID, BMP, LIVER ### # [facility] [address] [address] [address] Yue Vega Bilirubin [Mass/Vol] 0.9 mg/dL Normal 0.2-1.0 [facility] Comment on above: Performed By: #### LIPID, BMP, LIVER ### # [facility] [address] [address] [address] Yue Vega Globulin (S) [Mass/Vol] 4.2 g/dL Normal [facility] Comment on above: Performed By: #### LIPID, BMP, LIVER ### # [facility] [address] [place] [address] Dr. Yue Vega Protein [Mass/Vol] 8.0 g/dL Normal 6.4-8.2 [facility] Comment on above: Performed By: #### LIPID, BMP, LIVER ### # [facility] [address] [place] [address] Dr. Yue Vega MICROALBUMIN, RAND URon 09-15 mALB 16.8 mg/L Normal <=30.0 [facility] Comment on above: Performed By: #### SERG LOBORO #### [facility] [address] [place] [address] Dr. Yue Vega PROF CHEM 8 (BAS METB)on Anion gap [Moles/Vol] 12.2 mmol/L Normal [facility] Comment on above: Performed By: #### TSH #### [facility] [address] [place] [address] Dr. Yue Vega Calcium [Mass/Vol] 9.4 mg/dL Normal 8.5-10.1 [facility] Comment on above: Performed By: #### TSH #### [facility] [address] [place] [address] Dr. Yue Vega Chloride [Moles/Vol] 99 mmol/L Normal 98-107 [facility] Comment on above: Performed By: #### TSH #### [facility] [address] [place] [address] Dr. Yue Vega CO2 [Moles/Vol] 32.1 mmol/L Critically high 21.0-32.0 [facility] Comment on above: Performed By: #### TSH #### [facility] [address] [place] [address] Dr. Yue Vega Creatinine [Mass/Vol] 1.19 mg/dL Normal 0.70-1.30 [facility] Comment on above: Performed By: #### TSH #### [facility] [address] [address] [address] Yue Vega EGFR-AF TANZANIAN >60 Normal >=60 [facility] Comment on above: Performed By: #### TSH #### [facility] [address] [address] [address] Yue Vega EGFR-NON AF TANZANIAN 58 mL/min/1.73m2 Critically low >=60 [facility] Comment on above: Performed By: #### TSH #### [facility] [address] [address] [address] Yue Vega Glucose [Mass/Vol] 158 mg/dL Critically high 74-106 [facility] Comment on above: Performed By: #### TSH #### [facility] [address] [address] [address] Yue Vega Potassium [Moles/Vol] 4.3 mmol/L Normal 3.5-5.1 [facility] Comment on above: Performed By: #### TSH #### [facility] [address] [address] [address] Yue Vega Sodium [Moles/Vol] 139 mmol/L Normal 136-145 [facility] Comment on above: Performed By: #### TSH #### [facility] [address] [address] [address] Yue Vega Urea nitrogen [Mass/Vol] 24.0 mg/dL Critically high 7.0-18.0 [facility] Comment on above: Performed By: #### TSH #### [facility] [address] [address] [address] Yue Vega Urea nitrogen/Creatin ine [Mass ratio] 20.2 mg/mg Normal [facility] Comment on above: Performed By: #### TSH #### [facility] [address] [address] [address] Yue Vega XR wrist LT min 3V*on 2021 XR wrist LT min 3V* [facility] [place] [address] XRay Report Signed Patient: Edwin Orourke MR#: [id number] : 1935 Acct:[id number] Age/Sex: 87 / M ADM Date: 09/05/22 Loc: XDUCLY Room: Type: [facility] Attending Dr: Sanaz ALEX Copies to: SANAZ CAMPO Ordering Provider: SANAZ CAMPO Date of Service: 09/05/22 XR/XR wrist LT min 3V*: Injury of left wrist, initial encounter LEFT WRIST - 4 views CLINICAL HISTORY: Fall this morning. Now with left wrist pain. COMPARISON: None FINDINGS: No focal soft tissue abnormality. Vascular calcifications. No acute bony process is seen. Degenerative changes involving the carpus, worst at the CMC joint of the thumb. XR/XR wrist LT min 3V* IMPRESSION: NO ACUTE BONY PROCESS. Impression dictated by: Albert Rene Jr., D.O.09/05/2022 5:57 PM Dictation Location: [address] [address] Transcribed By: [facility] 09/05/221756 Dictated By: Albert Rene Jr, DO 09/05/221756 Signed By: 09/05/221756 Normal [facility] XR wrist LT min 3V* [facility] [employer] Other XR wrist LT min 3V* [facility] [employer] Other XR wrist LT min 3V* [address] [place] [address] [employer] Other XR wrist LT min 3V* [place] [address] invi Other XR wrist LT min 3V* XRay Report invi Other XR wrist LT min 3V* Signed inv[facility] Other XR wrist LT min 3V* Patient: Edwin Orourke MR#: [id number] invi Other XR wrist LT min 3V* [id number] inv[facility] Other XR wrist LT min 3V* : 1935 Acct:[id number] inv[facility] Other XR wrist LT min 3V* Age/Sex: 87 / M ADM Date: 09/05/22 invi Other XR wrist LT min 3V* Loc: XDUCLY Room: Type: [facility] invi Other XR wrist LT min 3V* Attending Dr: Sanaz Campo [facility] invi Other XR wrist LT min 3V* Copies to: SANAZ CAMPO [facility] Other XR wrist LT min 3V* Ordering Provider: SANAZ CAMPO [facility] inv[facility] Other XR wrist LT min 3V* Date of Service: 09/05/22 invi Other XR wrist LT min 3V* XR/XR wrist LT min 3V*: Injury of left wrist, initial encounter [facility] Other XR wrist LT min 3V* LEFT WRIST - 4 views inv[facility] Other XR wrist LT min 3V* CLINICAL HISTORY: Fall this morning. Now with left wrist pain. invi Other XR wrist LT min 3V* COMPARISON: None [facility] Other XR wrist LT min 3V* FINDINGS: inv[facility] Other XR wrist LT min 3V* No focal soft tissue abnormality. Vascular calcifications. No acute bony process is seen. invi Other XR wrist LT min 3V* Degenerative changes involving the carpus, worst at the CMC joint of the thumb. invi Other XR wrist LT min 3V* XR/XR wrist LT min 3V* invi Other XR wrist LT min 3V* IMPRESSION: invi Other XR wrist LT min 3V* NO ACUTE BONY PROCESS. [facility] [employer] [facility] [employer] Other XR wrist LT min 3V* Impression dictated by: Albert Rene Jr., D.OMarli09/05/2022 5:57 PM invi Other XR wrist LT min 3V* Dictation Location: [place] [address] inv[facility] Other XR wrist LT min 3V* Transcribed By: PWS 09/05/22 [facility] Other XR wrist LT min 3V* Dictated By: Albert Rene Jr, DO 09/05/22 [facility] Other XR wrist LT min 3V* Signed By: invi Other XR wrist LT min 3V* 09/05/22 [facility] Other GLYCOHEMOGLOBIN A1Con 2021 ADA RECOMMENDATION SEE BELOW Normal [facility] Comment on above: Result Comment: ADA RECOMMENDED LIMIT 4. 0 - 6.0 ADA THERAPEUTIC TARGET < 7.0 ACTION SUGGESTED > 7.0 Performed By: #### A 1C #### [facility] [address] [address] [address] Yue Vega Glucose [Mass/Vol] 154 mg/dL Normal [facility] Comment on above: Performed By: #### A1C #### [facility] [address] [address] [address] Yue Vega HbA1c (Bld) [Mass fraction] 7.0 % Critically high 4.5-6.2 [facility] Comment on above: Performed By: #### A1C #### [facility] [address] [address] [address] Yue Vega Cardiovascular Lab Reporton 05-30-2018 Cardiovascular Lab Report [facility] #: [id number] Physician: Devendra Hood M.D.Medicine Service Date: 05/29/2018Division of Birthdate: 1935Cardiology Room #: 3CD [id number] [facility]td[facility], [place] [address]Dnnea Fax Cardiovascular Laboratory ReportINDICATION: Edwin Orourke is an 83-year-old man with history ofhypertension, hyperlipidemia, and diabetes. He recently presented to theemergency room in [facility] with typical unstable angina. He thenhad a stress test, that showed anterior ischemia. He continued too high ofrecurrent symptoms of unstable angina despite medical therapy. He wasevaluated in Cardiology Clinic and brought today for cardiaccatheterization and possible intervention.PROCEDURE:1. Bilateral selective coronary angiography from the left radial access.2. Balloon dilatation and drug-eluting stenting of 99% stenosis in the proximal 1st diagonal branch, reduced to 0% by deployment of a Synergy 2.25 x 16 mm drug-eluting stent, post dilated to 2.5 mm at high pressures.3. Successful balloon dilatation and drug-eluting stenting of sequential 85% stenosis in the mid left anterior descending artery, reduced to 0% by deployment of a Synergy 2.5 x 32 mm and a Synergy 2.25 x 12 mm drug-eluting stent deployed in an overlapping fashion and post dilated up to 2.5 mm at high pressures.4. Administration of intracoronary nitroglycerin.METHOD: Procedure was explained to the patient with risks and benefits.He signed informed consent. He was brought to optical laboratory manager in a fasting state.The left wrist area was prepped and draped in usual fashion. Tiago's testwas favorable. Access in the left radial artery was obtained usingultrasound guidance and micropuncture technique. A 6-Monegasque x 11 cmHydrophilic sheath was left. Verapamil was given through the sheath andheparin was administered intravenously. Bilateral selective coronaryangiography was then performed using 6-Monegasque JL4 for engagement of theleft coronary artery and a 6-Monegasque JR4 followed by a 6-Monegasque ALIREZA catheterfor engagement of the right coronary artery. Catheters were removed.Therapeutic ACT confirmed during the procedure and additional heparin givenas needed. A 6-Monegasque XB 3.5 guiding catheter was advanced and used toengage the left main coronary ostium. A marble wire was advanced into thedistal diagonal branch. Balloon angioplasty in the proximal diagonalbranch was performed using Emerge 2.0 x 8 mm balloon, inflated at 8atmospheres followed by additional dilatation using Emerge 2.0 x 12 mmnoncompliant balloon inflated at 8 atmospheres. Angiography revealedsuboptimal results. This was treated using a Synergy 2.25 x 16 mmdrug-eluting stent deployed at 11 atmospheres and post dilated using NCQuantum [place] 2.5 x 8 mm noncompliant balloon inflated at 14 atmospheres.Angiography after administration of intracoronary nitroglycerin showedexcellent result with reduction of the stenosis to 0%. KAYLA-3 flow in thediagonal branch. The guiding wire was retracted and advanced into thedistal LAD. Balloon dilatation and mid LAD were performed using Emerge 2.5x 12 mm balloon, deployed at 12 atmospheres in the serial lesions in themid LAD. Angiography revealed suboptimal result. Therefore, a Synergy 2.5x 32 mm drug-eluting stent was advanced in the mid LAD and deployed at 11atmospheres and post dilated using NC Quantum [place] 2.5 x 15 mm noncompliantballoon inflated at 18 atmospheres throughout the length of the stent.Angiography was performed. Intracoronary nitroglycerin was administered.It was decided to deploy an additional stent distal to the previouslydeployed stent. This was a Synergy 2.25 x 12 mm stent, deployed at 11atmospheres and post dilated using NC Quantum [place] 2.5 x 15 mm noncompliantballoon inflated at 18 atmospheres. Final angiography after administrationintracoronary nitroglycerin showed very good result with reduction of thestenosis in the stented segments to 0%. There was KAYLA-3 flow in the LADand branches. There was a stepdown at the end of the most distal stent dueto the diffusely diseased distal LAD. The guiding catheter was removed.The procedure was concluded. The access sheath was removed and acompression dressing applied for hemostasis. The patient tolerated theprocedure well. He was loaded with an extra 90 mg of Brilinta at the endof the procedure as he was maintained previously on aspirin and Brilinta.He will be admitted for overnight observation.TOTAL FLUORO TIME: 24.33 minutes.TOTAL AIR KERMA: 3722 mGy total.CONTRAST VOLUME: 235 mL.HEMODYNAMICS: AO 115/53, mean 77.CORONARY ANGIOGRAPHY:1. This is a right dominant circulation.2. Left main arises from left coronary cusp. It bifurcates into left anterior descending and circumflex vessels. The left main is angiographically free of disease.3. Left anterior descending: This is a small caliber vessel and diffusely diseased throughout its course. It has however a 99% stenosis in the proximal segment of the diagonal branch, which was reduced to 0% by Synergy drug-eluting stent. The mid LAD has sequential 85% stenoses that were reduced to 0% by deployment of a Synergy drug-eluting stent. The mid to distal LAD is diffusely diseased.4. Circumflex vessel: This is nondominant and has a 50% stenosis at the ostial to proximal segment. Distally, it is diffusely diseased and is of small caliber.5. Right coronary artery: This arises from the right coronary cusp. It is a moderate size and dominant vessel. It has a 70% stenosis in the distal segment and more distally it bifurcates into PDA and PLV branches, those appear to be free of significant stenosis.SUMMARY OF THE FINDINGS:1. Coronary artery disease with diffuse small vessel disease consistent with diabetes.2. 99% stenosis in the proximal diagonal branch reduced to 0% by Synergy drug-eluting stent.3. 85% sequential stenosis in the mid LAD reduced to 0% by Synergy drug-eluting stent.4. 70% stenosis in the distal RCA with diffuse disease elsewhere in the coronary tree.RECOMMENDATIONS:1. Aspirin and statin therapy for life.2. Maximize anti-anginal therapy.3. The patient's lisinopril and hydrochlorothiazide will be discontinued, and Imdur 60 mg daily and amlodipine 10 mg daily will be added to his regimen.4. Continue Brilinta therapy for a minimum of 6 months after drug-eluting stenting in preferably 12months due to unstable angina presentation.5. If the patient needs to shift from Brilinta to another agent due to cost, then Plavix 75 mg daily can be an option.6. Follow up in Cardiology Clinic.Electronically Signed by:Devendra Flores M.D. 06/16/2018 12:09 P Devendra Flores M.D.Date Dict: 05/29/2018/01:20 P/Devendra Flores M.D.Date Trans: 05/30/2018 11:47 A/SariN_JN:[id number]: Deep Velasquez D.O. [address] [facility] [address] [facility] [address] Ramon Martines M.D. [address] [facility]. [facility] [address] Normal The [facility] POC GLUCOSE LABon 05-30-2018 Glucose mass conc 121 mg/dL High 70-100 The [facility] Comment on above: Performed By: #### [id number] ####[facility] [place] [address], [facility] POC GLUCOSE LABon 05-29-2018 Glucose mass conc 126 mg/dL High 70-100 The [facility] Comment on above: Performed By: #### [id number] ####[facility] [place] [address], [facility] Glucose mass conc 127 mg/dL High 70-100 [facility] Comment on above: Performed By: #### [id number] ####[facility] [place] [address], [facility] Vital Signs Date Time Vital Sign Value Performing Clinician Facility 09-05-2022 17:40-0500 Body height 180.34 cm Sanaz Campo Other inv[facility] Other 09-05-2022 17:40-0500 Body mass index (BMI) [Ratio] 27.89 kg/m2 Sanaz Campo Other [facility] Other 09-05-2022 17:40-0500 Body temperature 97.6 [degF] Sanaz Campo Other inv[facility] Other 09-05-2022 17:40-0500 Body weight 90.72 kg aSnaz Campo Other invi Other 09-05-2022 17:40-0500 Diastolic blood pressure 63 mm[Hg] Sanaz Campo Other invi Other 09-05-2022 17:40-0500 Respiratory rate 16 /min Sanaz Campo Other inv[facility] Other 09-05-2022 17:40-0500 SaO2% (BldA) [Mass fraction] 97 % Sanaz Campo Other inv[facility] Other 09-05-2022 17:40-0500 Systolic blood pressure 153 mm[Hg] Sanaz Campo Other invi Other Encounters Encounter Date Encounter Type Care Provider Facility Start: 12-01-2023 ambulatory Deven Dan ty:ELDON Lindsay Start: 10-11-2023 End: 10-11-2023 ambulatory ЕЛЕНА LOU [facility] Start: 10-02-2023 ambulatory [facility] Start: 10-02-2023 End: 10-02-2023 ambulatory [facility] Start: 08-22-2023 End: 08-22-2023 ambulatory [facility] Start: 04-26-2023 End: 04-26-2023 ambulatory [facility] Start: 03-24-2023 End: 03-24-2023 ambulatory Ramon Martines Facility:[facility] Start: 03-14-2023 End: 03-14-2023 ambulatory JOAQUÍN [facility] Start: 02-16-2023 End: 02-17-[address] DOCTOR NAGEL Facility:[facility] Start: 02-15-2023 End: 02-15-2023 ambulatory SARAH WILSON [facility] Start: 01-06-2023 End: 01-06-2023 ambulatory Jose Eduardo Murray Facility:[facility] Start: 01-06-2023 End: 01-06-2023 ambulatory MD Ramon Martines Work Phone: [facility] Work Phone: Start: 01-06-2023 End: 01-06-2023 Patient encounter procedure MD Ramon Martines Work Phone: [facility] Work Phone: Start: 12-28-2022 End: 12-28-2022 ambulatory ЕЛЕНА LOU [facility] Start: 12-26-2022 End: 12-26-2022 ambulatory GONZÁLEZ HADDAD . Facility:[facility] Start: 12-21-2022 End: 12-22-2022 ambulatory SUZI MURRAY Facility:[facility] Start: 12-06-2022 End: 12-31-[address] RAMON MARTINES Facility:[facility] Start: 09-26-2022 End: 09-27-[address] RAMON MARTINES Facility:[facility] Start: 09-05-2022 End: 09-05-2022 ambulatory Sanaz Campo [facility] [facility] Start: 09-05-2022 End: 09-05-2022 Patient encounter procedure SCREEN OPERATOR-C Sanaz Campo Work Phone: [facility] Start: 09-05-2022 End: 09-05-2022 ambulatory SCREEN OPERATOR-C Sanaz Campo Work Phone: [facility] Work Phone: Start: 09-05-2022 Office outpatient visit 15 minutes Sanaz Campo [facility] Start: 04-19-2022 End: 04-20-[address] RAMON MARTINES Facility:[facility] Start: 05-29-2018 End: 05-30-2018 Patient encounter PROVIDER UNKNOWN Facility:[facility] Start: 05-28-2018 End: 05-29-2018 Patient encounter DEFAULT PHYSICIAN Facility:[facility] Start: 05-20-2018 End: 05-21-2018 Patient encounter DEFAULT PHYSICIAN Facility:[facility] Procedures Date Procedure Procedure Detail Performing Clinician Start: 04-26-2023 Follow-up visit Follow-up JOAQUÍN SMITH Start: 01-06-2023 MRI of head MD Ramon chapman Work Phone: Start: 09-05-2022 Plain X-ray of left wrist SCREEN OPERATOR-C Sanaz Campo Work Phone: Plan of Treatment Date Care Activity Detail Author [facility] Payers Date Payer Category Payer Self-pay 1957 Medicare [id number] 1957 Unknown [id number] 1937 Unknown [id number] 2.16.84 [id number] 1937 Unknown [id number] 2.16.84 [id number] 1937 Unknown [id number] 2.16.84 [id number] 1937 Unknown [id number] 2.16.84 [id number] 1937 Unknown [id number] 2.16.84 [id number] 1937 Unknown [id number] 2.16.84 [id number] 1937 Unknown [id number] 2.16.8 [id number] Medicare [id number] Unknown Unknown [id number] 2.16.8 [id number] Unknown [id number] 2.16.8 [id number] Unknown [id number] 2.16.8 [id number] Social History Date Type Detail Facility Tobacco smoking status NHIS Unknown if ever smoked [facility] Work Phone: Start: 1935 Sex Assigned At Male F [facility] Sex Assigned At Sex Assigned At Bir th [facility] [employer] Other Clinical Notes 09-05-2022 to 10-11-2023 Note Date & Type Note Facility 10-11-2023 Note Stable s/p Dual chamber PPM [facility] 10-11-2023 Note Stable s/p Dual chamber PPM [facility] 10-11-2023 Note Pt presents for 1 we ek wound check s/p recent [employer] dual PPM implant for SSS/ bradycardia Incision site well approximated, healing well without s/s of infection [facility] 10-11-2023 Note [facility] CARDIOLOGY PROGR ESS NOTE HPI: Edwin Orourke is a 88 y.o. male here for wound check s/p dual chamber PPM HPI Pt presents today for wound check after PPM implantation for SSS/symptomatic bradycardia. Denied fever, chills, N/V/D, pain of chest incision site. C/O continued weakness of legs and instability walking. Review of Systems Constitutional: Negative. Respiratory: Negative. Cardiovascular: Negative. Neurological: Negative. All other systems reviewed and are negative. Visit Vitals Smoking Status Never No Known Allergies Medications: Current Outpatient Medications on File Prior to Visit Medication Sig Dispense Refill acetaminophen (Tylenol) 500 mg tablet Take 500 mg by mouth in the morning, at noon, and at bedtime. Take 2 3 times day aspirin 81 mg EC tablet Take 1 tablet every day by oral route. donepezil (Aricept) 10 mg tablet Take 10 mg by mouth at bedtime. doxycycline (Monodox) 100 mg capsule Take 1 capsule (100 mg) by mouth in the morning and at bedtime for 14 days. Take with at least 8 ounces (large glass) of water, do not lie down for 30 minutes after 28 capsule 0 hydrALAZINE (Apresoline) 25 mg tablet Take 25 mg by mouth in the morning, at noon, and at bedtime. isosorbide mononitrate ER (Imdur) 60 mg 24 hr tablet Take 1 tablet (60 mg) by mouth once daily as directed. Do not crush or chew. 90 tablet 3 lisinopriL-hydrochlorothiazide 20-25 mg tablet Take 1 tablet by mouth in the morning. lovastatin (Mevacor) 40 mg tablet Take 40 mg by mouth in the morning. metFORMIN (Glucophage) 500 mg tablet Take 500 mg by mouth in the morning. naproxen (Naprosyn) 500 mg tablet Take 500 mg by mouth 1 (one) time each day. oxybutynin XL (Ditropan-XL) 10 mg 24 hr tablet Take 10 mg by mouth in the morning. tamsulosin (Flomax) 0.4 mg 24 hr capsule Take 0.8 mg by mouth in the morning. No current facility-administered medications on file prior to visit. Physical Exam: Constitutional: Appearance: Normal appearance. Without apparent distress, ambulatory via w/c HENT: Head: Normocephalic and atraumatic. Nose: Nose normal. Mouth/Throat: Mouth: Mucous membranes are moist. Eyes: Extraocular Movements: Extraocular movements intact. Conjunctiva/sclera: Conjunctivae normal. Neck: Vascular: No JVD. Cardiovascular: Rate and Rhythm: Normal rate and regular rhythm. Pulses: Dorsalis pedis pulses are 3 on the right side and 3 on the left side. Posterior tibial pulses are 3 on the right side and 3 on the left side. Heart sounds: Normal heart sounds, S1 normal and S2 normal. Skin: General: Skin is warm and dry. Lt chest incision C/D/I, well approximated and healing well, no hematoma or ecchymosis noted Capillary Refill: Capillary refill takes less than 2 seconds. Neurological: General: No focal deficit present. Mental Status: he is alert and oriented to person, place, and time. Psychiatric: Mood and Affect: Mood normal. Behavior: Behavior normal. Thought Content: Thought content normal. Judgment: Judgment normal. Labs: Last lab values have been reviewed CV Testin10/02/23 Conclusion DUAL CHAMBER PACEMAKER IMPLANT PROCEDURE NOTE DATE OF PROCEDURE: 10/02/23 PERFORMING PHYSICIAN: Dr. Mike Hilario PAYROLL MACHINE OPERATOR: Dr Lana Powell CONSENT: Patient LOCATION: EP Lab PROCEDURE PERFORMED: 1. Implantation of pacemaker ([employer]) 2. Ultrasound guided venous access INDICATIONS: 1. Sinus node dysfunction. 2. Bradycardia No echocardiogram results found for the past 12 months Assessment/Plan: Cardiac pacemaker in situ Pt presents for 1 week wound check s/p recent [employer] dual PPM implant for SSS/ bradycardia Incision site well approximated, healing well without s/s of infection Sinus node dysfunction (CMS/HCC) Stable s/p Dual chamber PPM Sinus bradycardia Stable s/p Dual chamber PPM RTC 1 month with device rep [facility] 10-02-2023 Note DUAL CHAMBER PACEMAK ER IMPLANT PROCEDURE NOTE DATE OF PROCEDURE: 10/02/23 PERFORMING PHYSICIAN: Dr. Mike Hilario PAYROLL MACHINE OPERATOR: Dr Lana Powell CONSENT: Patient LOCATION: EP Lab PROCEDURE PERFORMED: 1. Implantation of pacemaker ([employer]) 2. Ultrasound guided venous access INDICATIONS: 1. Sinus node dysfunction. 2. Bradycardia PROCEDURAL SEDATION: Versed and Fentanyl. Moderate sedation was administered by the sedation nurse under my supervision and noted in the CVL log. Intraprocedural face to face sedation time: 52min. Monitoring: Cardiac telemetry, Blood pressure, continuous pulse oxymetry. FLUOROSCOPY TIME: 1.2min/5 mGray. SPECIMEN REMOVED: None PREPARATION: 88 y.o. 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 He was recommended EP consult by his neurology group as he was found to be bradycardic with a pulse of 40 to 50s per his . In December 2022 had his metoprolol discontinued due to having ER visit with [facility] for complaints of dizziness and was found to be bradycardic. Since stopping he has been fairly asymptomatic with no complaints of lightheadedness, dizziness, fatigue. He was also found to have AF , new onset in 2018. He was prescribed xarelto but was too expensive. Stress test on 05/17/2018 that showed large anterior ischemia with EF 64%. He had a cath that showed high grade stenosis in the LAD and diagonal and he underwent BRONSON synergy stents and did well. He had a Holter monitor placed which revealed 7% ventricular ectopy which patient reports being asymptomatic, slowest heart report is 31 bpm and average heart rate 54 bpm and overall predominant rhythm was sinus bradycardia to sinus rhythm with frequent ventricular ectopy and first-degree AV block. His bradycardic event with 31 bpm revealed PACs. . He is scheduled to start Donepizil by neuro for dementia.Patient reports being asymptomatic while wearing monitor. He denies chest pain, el LOC but does state exertional dyspnea. He is limited in his activities lately from these and so advised PPM. PROCEDURAL DETAILS: Patient was placed in trendelenberg position and ultrasound was used to evaluate the patency of left axillary vein and for venous access. Left axillary venous access was obtained using modified seldinger technique using a 5 Monegasque micro-puncture needle on two occasions and 0.35 wires were placed. Local infiltration of 1% Lidocaine was performed, and an incision was created in the left upper chest. Dissection was then performed using cautery down to the fascial plane above the muscle. The belly of the pectoralis was identified and with gentle blunt dissection a small pocket was created for the device above the muscle. 6 Monegasque Safesheaths were placed over the wire. An active fixation [employer] pacing lead was then delivered through the 6Fsheath to the right ventricle. After confirmation of lead position on orthogonal views (GRAVES and CAMBODIAN) to confirm septal position, the screw was activated, and the lead was placed in the right ventricular mid cavity towards the septum. After confirmation of good sensing parameters, injury pattern and pacing thresholds, 10V pacing was done and no diaphragmatic stimulation was noted. It was then secured in the pocket using three 1-0 Silk sutures. Then an active fixation [employer] lead was delivered through the 6Fsheath to the right atrial appendage. After confirmation of lead position on orthogonal views (GRAVES and CAMBODIAN), the screw was activated. Good sensing parameters, injury pattern and pacing thresholds, the lead was then tested using Lambert's maneuver. 10V pacing was done and no diaphragmatic stimulation was noted. It was then secured in the pocket using three 1-0 Silk sutures. Pocket hemostasis was secured, and it was then copiously and vigorously irrigated with antibiotic solution. The leads were attached to the generator and then wrapped under the device and the device was tacked to underlying muscle and placed in the pocket. The pocket was closed in layers: subcutaneous layer using 2-0 Vicryl; skin using 3-0 absorbable monofilament suture. Glue was applied and Tegaderm dressing was placed on top. Lead parameters were then rechecked through the device as noted below. The patient was returned to the short stay room for post procedural observation. No immediate procedural complications were noted. POST PROCEDURE EXAM: Patient was hemodynamically stable. COMPLICATIONS: None. ESTIMATED BLOOD LOSS: 15cc IMPRESSION: 1. Successful dual chamber pacemaker with excellent pacing and sensing parameters. RECOMMENDATIONS: 1. Occlusive dressing to be removed after 2 weeks. 2. Do not wet the incision for 7 days. 3. No lifting heavy weights using arm on the same side x 3weeks 4. Do not lift elbow above the shoulder on the same side for 4-6 weeks. 5. No driving for (more content not included)... 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 Use of blood products discussed with patient who. Additional Equipment Requests [facility] 08-22-2023 Note [place] Electrophysiology Note Reason for visit: bradycardia Date of Telehealth Visit: 08/22/23 The patient was notified that using 3rd libertarian telecommunication application (e.g., Couple) is not HIPPA compliant and may carry some privacy risks. Yes The visit was conducted [id number] with the use of audio and video technology [email or web address] between patient and provider for a virtual visit. Verbal consent to provide and bill this service was obtained on 08/22/23 . No signature was obtained due to the COVID-19 pandemic. Patient Location: Patient Home I spent 18 minutes of total time on the day of the visit. This time was spent preparing for the visit, obtaining and reviewing any outside history/data, taking a history, performing an exam/evaluation, counseling and educating patient/family about the diagnosis and plan, performing medical decision making, referring to and communicating with other health care referrals, independently interpreting results and documenting in the EMR, and coordinating care. Please see the additional documentation in this note for specific details HPI: Edwin Orourke is a 88 y.o. 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 He was recommended EP consult by his neurology group as he was found to be bradycardic with a pulse of 40 to 50s per his . In December 2022 had his metoprolol discontinued due to having ER visit with [facility] for complaints of dizziness and was found to be bradycardic. Since stopping he has been fairly asymptomatic with no complaints of lightheadedness, dizziness, fatigue. He was also found to have AF , new onset in 2018. He was prescribed xarelto but was too expensive. stress test on 05/17/2018 that showed large anterior ischemia with EF 64%. He had a cath that showed high grade stenosis in the LAD and diagonal and he underwent BRONSON synergy stents and did well. He had a Holter monitor placed which revealed 7% ventricular ectopy which patient reports being asymptomatic, slowest heart report is 31 bpm and average heart rate 54 bpm and overall predominant rhythm was sinus bradycardia to sinus rhythm with frequent ventricular ectopy and first-degree AV block. His bradycardic event with 31 bpm revealed PACs. Patient reports being asymptomatic while wearing monitor. He is scheduled to start Donepizil by neuro for dementia. He denies chest pain, el LOC but does state exertional dyspnea. He is limited in his activities lately from these. ECG 05/04/2018: Atrial fibrillation, possible old septal DC. ECG 05/28/2018 showed sinus rhythm with 1st degree AV block and PAC. Possible anteroseptal DC. ECG today 03/21/2019: sinus rhythm with 1st degree AV block with PACs. Blood testing 02/06/2020: Hemoglobin 15.3, platelets 224, BUN 27, creatinine 1.08, potassium 4.0, LDL 92, triglycerides 115. Blood testing 07/02/2021: Hemoglobin 13, platelets 419, potassium 4.5, BUN 19, creatinine 1.1, LFTs normal, cholesterol 149, HDL 42, triglycerides 133, LDL 80. PMH: Past Medical History: Diagnosis Date Abnormal ECG Arrhythmia PSH: No past surgical history on file. SH: Social Determinants of Health Tobacco Use: Low Risk (04/26/2023) Patient History Smoking Tobacco Use: Never Smokeless Tobacco Use: Never Passive Exposure: Not on file Alcohol Use: Not on file Financial Resource Strain: Not on file Food Insecurity: Not on file Transportation Needs: Not on file Physical Activity: Not on file Stress: Not on file Social Connections: Not on file Intimate Partner Violence: Not on file Depression: Not on file Housing Stability: Not on file Allergies: No Known Allergies Weight: No weight available Visit Vitals Smoking Status Never Meds: Current Outpatient Medications on File Prior to Visit Medication Sig Dispense Refill acetaminophen (Tylenol) 500 mg tablet Take 500 mg by mouth in the morning, at noon, and at bedtime. Take 2 3 times day aspirin 81 mg EC tablet Take 1 tablet every day by oral route. donepezil (Aricept) 10 mg tablet Take 10 mg by mouth at bedtime. hydrALAZINE (Apresoline) 25 mg tablet Take 25 mg by mouth in the morning, at noon, and at bedtime. isosorbide mononitrate ER (Imdur) 60 mg 24 hr tablet Take 1 tablet (60 mg) by mouth once daily as directed. Do not crush or chew. 90 tablet 3 lisinopriL-hydrochlorothiazide 20-25 mg tablet Take 1 tablet by mouth in the morning. lovastatin (Mevacor) 40 mg tablet Take 40 mg by mouth in the morning. metFORMIN (Glucophage) 500 mg tablet Take 500 mg by mouth in the morning. naproxen (Naprosyn) 500 mg tablet Take 500 mg by mouth 1 (one) time each day. oxybutynin XL (Ditropan-XL) 10 mg 24 hr tablet Take 10 mg by mouth in the morning. tamsulosin (Flomax) 0.4 mg 24 hr capsule Take 0.8 mg by mouth in the morning. No current facility-administered medications on file prior to visit. ROS: Cardio Basic Cardiovascular (more content not included)... [facility] 04-26-2023 Note [place] Electrophysiology Note Reason for visit: follow up, bradycardia HPI: follow up for treadmill stress r/o chronotropic incompetence Treadmill stress test shows patient heart rate up to 80 bpm Patient states he has had no complaints of dizziness, lightheadedness, fatigue since last seen. Heart rate 04/26/2364 64bpm at rest ECG 04/11/2023: Sinus bradycardia 54 bpm 02/15/2023: Sinus rhythm first-degree AV 61 bpm 03/21/2019: sinus rhythm with 1st degree AV block with PACs. 05/04/2018: Atrial fibrillation, possible old septal DC. 05/28/2018 showed sinus rhythm with 1st degree AV block and PAC. Possible anteroseptal DC. 02/2023 HPI: Edwin Orourke is a 88 y.o. year old Was referred to EP clinic for bradycardia. He was recommended followed by his neurology group as he was found to be bradycardic with a pulse of 40 to 50s per his . In December 2022 had his metoprolol discontinued due to having ER visit with [facility] for complaints of dizziness and was found to be bradycardic. Since stopping he has been fairly asymptomatic with no complaints of lightheadedness, dizziness, fatigue. He had a Holter monitor placed which revealed 7% ventricular ectopy which patient reports being asymptomatic, slowest heart report is 31 bpm and average heart rate 54 bpm and overall predominant rhythm was sinus bradycardia to sinus rhythm with frequent ventricular ectopy and first-degree AV block. His bradycardic event with 31 bpm revealed PACs. Patient reports being asymptomatic while wearing monitor He denies chest pain, shortness of breath, ALCARAZ, orthopnea Per dr. Flores 12/2021 Previous note- follow up on CAD s/p stenting of LAD and Diagonal in 05/2018, hypertension. Visit of 05/28/2018: Mr Orourke is referred for chest pain and positive stress test. He is a 83 yo man who about 3 weeks ago went to bed and felt crushing mid chest pain, was admitted to the [facility] and discharged the following day. He then went back and had a stress test on 05/17/2018 that showed large anterior ischemia with EF 64%. ECG 05/04/2018: Atrial fibrillation, possible old septal DC. ECG 05/28/2018 showed sinus rhythm with 1st degree AV block and PAC. Possible anteroseptal DC. Update 06/25/2018: He is seen after his PCI. After last visit, I proceeded with cath that showed high grade stenosis in the LAD and diagonal and he underwent BRONSON synergy stents and did well. He is currently on plavix (was previously on brilinta, switched for cost). He has done well with no angina or heart failure symptoms. He has much improved exercise tolerance after the PCI. He has no claudication. JIM Nicole is seen in follow up on CAD s/p stenting of LAD and Diagonal in 05/2018, hypertension. Visit of 05/28/2018: Mr Orourke is referred for chest pain and positive stress test. He is a 83 yo man who about 3 weeks ago went to bed and felt crushing mid chest pain, was admitted to the [facility] and discharged the following day. He then went back and had a stress test on 05/17/2018 that showed large anterior ischemia with EF 64%. He says he never felt that before. Review of testing done during the [facility] admission showed mildl elevated of CK-MB, and elevated CK. His Tn showed a minimal rise but never reached cutoff for DC. CBC, BMP showed no anemia and normal renal function. He was also found to have AF , new onset not known before at the time of admission to [facility]. He was prescribed xarelto but was too expensive. He was given Brilinta 90 mg bid sample, and says that the medication will cost him a lot if he were to acquire it. I have reviewed the ECG done at [facility] and I think it showed SR. He has prior history of diabetes and hypertension on treatment. Since admission, he has been having angina with mild exertion. This is moderate in intensity. He has to stop activity for it to subside. ECG 05/04/2018: Atrial fibrillation, possible old septal DC. ECG 05/28/2018 showed sinus rhythm with 1st degree AV block and PAC. Possible anteroseptal DC. Update 06/25/2018: He is seen after his PCI. After last visit, I proceeded with cath that showed high grade stenosis in the LAD and diagonal and he underwent BRONSON synergy stents and did well. He is currently on plavix (was previously on brilinta, switched for cost). He has done well with no angina or heart failure symptoms. He has much improved exercise tolerance after the PCI. He has no claudication. Update 09/17/2018: He is seen in follow up. He has been doing well. He has no chest pain. He has no shortness of breath. He has been able to do more activities. Update 03/21/2019: He is seen in follow up. He has been doing well. He has no chest pain. He has no shortness of breath. He is active regularly and golfs frequently. No dizziness. he reports one ep (more content not included)... [facility] 04-26-2023 Note Patient is here toda y for a 2 month follow up Review of Systems Constitutional: Positive for malaise/fatigue. Cardiovascular: Positive for dyspnea on exertion. Musculoskeletal: Positive for arthritis, back pain and joint pain. Neurological: Positive for light-headedness (when bending over). All other systems reviewed and are negative. [facility] 03-28-2023 Note - asymptomatic at th is time and during Holter monitor - for a treadmill stress test to rule out chronotropic incompetence/ SSS [facility] 03-28-2023 Note - CAD stable - continue aspirin [facility] 03-28-2023 Note - stable - continue aspirin 81 mg, lisinopril-hydrochlorothiazide 20-25 mg, hydralazine 25 mg 3 times daily Imdur 60 mg [facility] 03-14-2023 Note Patient here for fol low up Holter monitor to evaluate bradycardia per Sarah Wilson DNP. Denies chest pain. Still Review of Systems Constitutional: Positive for malaise/fatigue. Cardiovascular: Positive for dyspnea on exertion. Musculoskeletal: Positive for arthritis, back pain and joint pain. Neurological: Positive for light-headedness (when bending over). All other systems reviewed and are negative. [facility] 03-14-2023 Note [place] Electrophysiology Note Reason for visit: follow up, bradycardia HPI: Edwin Orourke is a 88 y.o. year old Was referred to EP clinic for bradycardia. He was recommended followed by his neurology group as he was found to be bradycardic with a pulse of 40 to 50s per his . In December 2022 had his metoprolol discontinued due to having ER visit with [facility] for complaints of dizziness and was found to be bradycardic. Since stopping he has been fairly asymptomatic with no complaints of lightheadedness, dizziness, fatigue. He had a Holter monitor placed which revealed 7% ventricular ectopy which patient reports being asymptomatic, slowest heart report is 31 bpm and average heart rate 54 bpm and overall predominant rhythm was sinus bradycardia to sinus rhythm with frequent ventricular ectopy and first-degree AV block. His bradycardic event with 31 bpm revealed PACs. Patient reports being asymptomatic while wearing monitor He denies chest pain, shortness of breath, ALCARAZ, orthopnea Per dr. Flores 12/2021 Previous note- follow up on CAD s/p stenting of LAD and Diagonal in 05/2018, hypertension. Visit of 05/28/2018: Mr Orourke is referred for chest pain and positive stress test. He is a 83 yo man who about 3 weeks ago went to bed and felt crushing mid chest pain, was admitted to the [facility] and discharged the following day. He then went back and had a stress test on 05/17/2018 that showed large anterior ischemia with EF 64%. ECG 05/04/2018: Atrial fibrillation, possible old septal DC. ECG 05/28/2018 showed sinus rhythm with 1st degree AV block and PAC. Possible anteroseptal DC. Update 06/25/2018: He is seen after his PCI. After last visit, I proceeded with cath that showed high grade stenosis in the LAD and diagonal and he underwent BRONSON synergy stents and did well. He is currently on plavix (was previously on brilinta, switched for cost). He has done well with no angina or heart failure symptoms. He has much improved exercise tolerance after the PCI. He has no claudication. JIM Nicole is seen in follow up on CAD s/p stenting of LAD and Diagonal in 05/2018, hypertension. Visit of 05/28/2018: Mr Orourke is referred for chest pain and positive stress test. He is a 83 yo man who about 3 weeks ago went to bed and felt crushing mid chest pain, was admitted to the [facility] and discharged the following day. He then went back and had a stress test on 05/17/2018 that showed large anterior ischemia with EF 64%. He says he never felt that before. Review of testing done during the [facility] admission showed mildl elevated of CK-MB, and elevated CK. His Tn showed a minimal rise but never reached cutoff for DC. CBC, BMP showed no anemia and normal renal function. He was also found to have AF , new onset not known before at the time of admission to [facility]. He was prescribed xarelto but was too expensive. He was given Brilinta 90 mg bid sample, and says that the medication will cost him a lot if he were to acquire it. I have reviewed the ECG done at [facility] and I think it showed SR. He has prior history of diabetes and hypertension on treatment. Since admission, he has been having angina with mild exertion. This is moderate in intensity. He has to stop activity for it to subside. ECG 05/04/2018: Atrial fibrillation, possible old septal DC. ECG 05/28/2018 showed sinus rhythm with 1st degree AV block and PAC. Possible anteroseptal DC. Update 06/25/2018: He is seen after his PCI. After last visit, I proceeded with cath that showed high grade stenosis in the LAD and diagonal and he underwent BRONSON synergy stents and did well. He is currently on plavix (was previously on brilinta, switched for cost). He has done well with no angina or heart failure symptoms. He has much improved exercise tolerance after the PCI. He has no claudication. Update 09/17/2018: He is seen in follow up. He has been doing well. He has no chest pain. He has no shortness of breath. He has been able to do more activities. Update 03/21/2019: He is seen in follow up. He has been doing well. He has no chest pain. He has no shortness of breath. He is active regularly and golfs frequently. No dizziness. he reports one episode of ankle swelling that happened a while ago. ECG today 03/21/2019: sinus rhythm with 1st degree AV block with PACs. Update 07/13/2020: He is seen in follow-up via telemedicine. He has been doing very well. He has no angina. He does report an episode of chest twitching that lasted about few seconds and this happened a few weeks ago. He has been out golfing with no issues. He has no shortness of breath on exertion. No significant lower extremity edema. No dizziness, no syncope. He has not been taking amlodipine and his blood pressure has been controlled. It is mildly elevated today. But he reports that his blood pressure is usu (more content not included)... [facility] 02-15-2023 Note Patient here to per neurology to discuss bradycardia and possibly starting new medication for dementia. Metoprolol was stopped s/p ED visit in December for vertigo. Denies chest pain. Gets SOB with minimal exertion, which he states is unchanged from December. Review of Systems Constitutional: Positive for malaise/fatigue. Cardiovascular: Positive for dyspnea on exertion. Neurological: Positive for dizziness, light-headedness and vertigo. All other systems reviewed and are negative. [facility] 02-15-2023 Note Cardiology Clinic No te Subjective Edwin Orourke is a 88 y.o. year old male patient with coronary artery disease, vertigo, hyperlipidemia, dementia, and type 2 diabetes seen in follow-up for bradycardia. He was recommended follow-up by neurology to further evaluate bradycardia following reports of pulse rate in the 40s and 50s per . Of note, his metoprolol was discontinued back in December due to findings of bradycardia at the [facility] following presentation for evaluation of dizziness. is primary historian. She reports he has balance issues due to degenerative disk disease. He is unable to describe the symptoms he is experiencing, however denies recurrence of dizziness or lightheadedness. He does endorse feeling fatigued and overall poorly. Patient Active Problem List Diagnosis Coronary artery disease involving hoopa coronary artery of hoopa heart without angina pectoris Benign essential HTN Status post percutaneous transluminal coronary angioplasty Sinus bradycardia Vertigo Hyperlipidemia Gastroesophageal reflux disease Chest pain Type 2 diabetes mellitus without complication ([facility]) No family history on file. Social History Tobacco Use Smoking status: Never Smokeless tobacco: Never HPI Edwin is seen in follow up on CAD s/p stenting of LAD and Diagonal in 05/2018, hypertension. Visit of 05/28/2018: Mr Orourke is referred for chest pain and positive stress test. He is a 83 yo man who about 3 weeks ago went to bed and felt crushing mid chest pain, was admitted to the [facility] and discharged the following day. He then went back and had a stress test on 05/17/2018 that showed large anterior ischemia with EF 64%. He says he never felt that before. Review of testing done during the [facility] admission showed mildl elevated of CK-MB, and elevated CK. His Tn showed a minimal rise but never reached cutoff for DC. CBC, BMP showed no anemia and normal renal function. He was also found to have AF , new onset not known before at the time of admission to [facility]. He was prescribed xarelto but was too expensive. He was given Brilinta 90 mg bid sample, and says that the medication will cost him a lot if he were to acquire it. I have reviewed the ECG done at [facility] and I think it showed SR. He has prior history of diabetes and hypertension on treatment. Since admission, he has been having angina with mild exertion. This is moderate in intensity. He has to stop activity for it to subside. ECG 05/04/2018: Atrial fibrillation, possible old septal DC. ECG 05/28/2018 showed sinus rhythm with 1st degree AV block and PAC. Possible anteroseptal DC. Update 06/25/2018: He is seen after his PCI. After last visit, I proceeded with cath that showed high grade stenosis in the LAD and diagonal and he underwent BRONSON synergy stents and did well. He is currently on plavix (was previously on brilinta, switched for cost). He has done well with no angina or heart failure symptoms. He has much improved exercise tolerance after the PCI. He has no claudication. Update 09/17/2018: He is seen in follow up. He has been doing well. He has no chest pain. He has no shortness of breath. He has been able to do more activities. Update 03/21/2019: He is seen in follow up. He has been doing well. He has no chest pain. He has no shortness of breath. He is active regularly and golfs frequently. No dizziness. he reports one episode of ankle swelling that happened a while ago. ECG today 03/21/2019: sinus rhythm with 1st degree AV block with PACs. Update 07/13/2020: He is seen in follow-up via telemedicine. He has been doing very well. He has no angina. He does report an episode of chest twitching that lasted about few seconds and this happened a few weeks ago. He has been out golfing with no issues. He has no shortness of breath on exertion. No significant lower extremity edema. No dizziness, no syncope. He has not been taking amlodipine and his blood pressure has been controlled. It is mildly elevated today. But he reports that his blood pressure is usually well controlled. He is currently taking aspirin and statin therapy. Plavix was discontinued after finishing a year of therapy. Blood testing 02/06/2020: Hemoglobin 15.3, platelets 224, BUN 27, creatinine 1.08, potassium 4.0, LDL 92, triglycerides 115. Visit of 01/10/2022: He is seen in follow-up. He has been doing very well since last visit. He denies any angina or shortness of breath. He has no lower extremity edema. He does not feel palpitations. He has no dizziness or lightheadedness. He does have some balance issues but otherwise doing well. Blood testing 07/02/2021: Hemoglobin 13, platelets 419, potassium 4.5, BUN 19, creatinine 1.1, LFTs normal, cholesterol 149, HDL 42, triglycerides 133, LDL 80. Update: 12/28/2022 Pt is here for dizziness pt states he been having Dizziness stated he when to the ER on Monday (more content not included)... [facility] 12-28-2022 Note Hypertension is Stab le currently- Blood pressure log at home blood pressure is anywhere from 120-150/70-80- ER it was quite elevated 200/98 And hydralazine was added Orthostatic vitals were negative his blood pressure is actually lower lying than standing- He denied dizziness in office Continue all current meds [facility] 12-28-2022 Note Meclizine and follow -up with PCP He has followed up with neurology last week EKG 12/26/22- Sinus bradycardia with 1st degree AV block- 46 bpm ED summary 12/26/22 Vitals, B/P 200/98, HR 46, O2 sat 98% Pt was started also on hydralazine 25 mg tid. [facility] 12-28-2022 Note [facility] CARDIOLOGY PROGR ESS NOTE HPI: Edwin Orourke is a 87 y.o. male here for Dizziness and Fatigue Pt is here for dizziness pt states he been having Dizziness stated he when to the ER on Monday also states he is still having Dizziness but not as bad after starting meclizine. Denies any recent viral illness, sinus congestion ear congestion States spinning was worse when he lies down he feels like the whole room is spinning- He went to emergency room for evaluation Chest pain, shortness of breath, orthopnea or leg swelling Review of Systems Constitutional: Positive for malaise/fatigue. Neurological: Positive for dizziness and light-headedness. All other systems reviewed and are negative. Previous note- follow up on CAD s/p stenting of LAD and Diagonal in 05/2018, hypertension. Visit of 05/28/2018: Mr Orourke is referred for chest pain and positive stress test. He is a 83 yo man who about 3 weeks ago went to bed and felt crushing mid chest pain, was admitted to the [facility] and discharged the following day. He then went back and had a stress test on 05/17/2018 that showed large anterior ischemia with EF 64%. ECG 05/04/2018: Atrial fibrillation, possible old septal DC. ECG 05/28/2018 showed sinus rhythm with 1st degree AV block and PAC. Possible anteroseptal DC. Update 06/25/2018: He is seen after his PCI. After last visit, I proceeded with cath that showed high grade stenosis in the LAD and diagonal and he underwent BRONSON synergy stents and did well. He is currently on plavix (was previously on brilinta, switched for cost). He has done well with no angina or heart failure symptoms. He has much improved exercise tolerance after the PCI. He has no claudication. Cath 05/29/2018: 1. 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 2. 99% stenosis in the proximal diagonal branch reduced to 0% by Synergy drug-eluting stent. 3. 85% sequential stenosis in the mid LAD reduced to 0% by Synergy drug-eluting stent. 4. 70% stenosis in the distal RCA with diffuse disease elsewhere in the coronary tree. Echocardiogram 05/28/2018: Global left ventricular systolic function is normal (Visually estimated EF 60%). The left ventricle is normal size. Left ventricular wall thickness is normal. No regional wall motion abnormality. Grade 1, mild diastolic dysfunction (abnormal relaxation). Normal right ventricular systolic function. The left atrium is normal in size. Unable to assess right sided pressures due to lack of measurable tricuspid regurgitation. No significant valvular abnormalities No prior echocardiogram available for comparison Visit Vitals BP 97/59 (BP Location: Left arm, Patient Position: Lying, BP Cuff Size: Adult) Pulse 74 Wt 88.5 kg (195 lb) SpO2 100% BMI 27.98 kg/m??? Smoking Status Never BSA 2.09 m??? No Known Allergies Medications: Current Outpatient Medications on File Prior to Visit Medication Sig Dispense Refill donepezil (Aricept) 10 mg tablet Take 10 mg by mouth at bedtime. hydrALAZINE (Apresoline) 25 mg tablet Take by mouth. isosorbide mononitrate ER (Imdur) 60 mg 24 hr tablet Take 60 mg by mouth in the morning. Do not crush or chew. lisinopriL-hydrochlorothiazide 20-25 mg tablet Take 1 tablet by mouth in the morning. lovastatin (Mevacor) 40 mg tablet Take 40 mg by mouth in the morning. meclizine (Antivert) 25 mg tablet Take 25 mg by mouth if needed in the morning, at noon, and at bedtime for dizziness. metFORMIN (Glucophage) 500 mg tablet Take 500 mg by mouth in the morning. oxybutynin XL (Ditropan-XL) 10 mg 24 hr tablet Take 10 mg by mouth in the morning. tamsulosin (Flomax) 0.4 mg 24 hr capsule Take 0.8 mg by mouth in the morning. metoprolol tartrate (Lopressor) 50 mg tablet 1 (one) time each day at the same time. No current facility-administered medications on file prior to visit. Physical Exam: Constitutional: Appearance: Normal appearance. Without apparent distress, Obese HENT: Head: Normocephalic and atraumatic. Nose: Nose normal. Mouth/Throat: Mouth: Mucous membranes are moist. Eyes: Extraocular Movements: Extraocular movements intact. Conjunctiva/sclera: Conjunctivae normal. Neck: Vascular: No JVD. Cardiovascular: Rate and Rhythm: Normal rate and regular rhythm. Pulses: Dorsalis pedis pulses are 3 on the right side and 3on the left side. Posterior tibial pulses are 3 on the right side and 3 on the left side. Heart sounds: Normal heart sounds, S1 normal and S2 normal. Pulmonary: Effort: Pulmonary effort is normal. Breath sounds: Normal breath sounds. Abdominal: General: Bowel sounds are normal. Palpations: Abdomen is soft. Musculoskeletal: General: Normal range of motion. Cervical back: Normal range of motion. Right lower leg: No edema. Left lower leg: No edema. Skin: General: Skin is warm and dry. Capillary Refill: Capillary refill takes less than 2 (more content not included)... [facility] 12-28-2022 Note Pt is here for dizzi ness pt states he been having Dizziness stated he when to the ER on Monday also states he is still having Dizziness but not as bad Review of Systems Constitutional: Positive for malaise/fatigue. Neurological: Positive for dizziness and light-headedness. All other systems reviewed and are negative. [facility] 12-28-2022 Note Concerning cardiac s ymptoms at this time continue goal-directed medical therapy continue risk factor modifications- heart healthy diet, regular exercise as tolerated and continue all medications. [facility] 09-05-2022 Evaluation note Encounter Date Diagnosis Assessment Notes Aug, Injury of left wrist, initial encounter (ICD-10 - S69.92XA) Aug, Sprain of left wrist, initial encounter (ICD-10 - S63.502A) Use RICE therapy as discussed: Rest, Ice Compression, Elevate. Apply ice to affected area 3-4 times daily (Do not place ice source directly on skin, must cover with towel-like material). Use OTC as directed for pain if needed. Contact Primary care office for follow up on Monday invi Other Evaluation noteNo assessment information available [facility] Work Phone: History general Narrative - Reported* Type Description Date Medical History diabetes mallitus Medical History high blood pressure Medical History high cholesterol Surgical History b/l knee 1999 invi Other Summary Purpose Family History No Family History Records FoundNo Family History Records FoundNo Family History Records FoundNo Family History Records FoundNo Family History Records Found Advance Directives No Advanced Directives Records Found Advance Directive Response Recorded Date/ Time Advance Directives No August 6:43pm Chief Complaint and Reason for Visit Chief Complaint g30.1 Additional Source Comments (unrecognized sect ion and content) No Status Records FoundNo Status Records FoundNo Status Records FoundNo Status Records FoundNo Status Records Found INFORMATION SOURCE (unrecogn ized section and content) DATE CREATED AUTHOR 06/21/2018 [facility] DATE CREATED AUTHOR AUTHOR'S ORGANIZ ATION 02/23/2023 [facility] DATE CREATED AUTHOR AUTHOR'S ORGANIZ ATION 04/05/2023 [place] DATE CREATED AUTHOR AUTHOR'S ORGANIZ ATION 08/27/2023 [facility] DATE CREATED AUTHOR AUTHOR'S ORGANIZ ATION 10/13/2023 [facility] Care Teams (unrecognized sec tion and content) Team Status: Inactive Member Role Status Dates ISAI Davis Attending Provider Active Team Status: Active Member Role Status Dates Ramon Martines MD Primary Care Provider Active Team Status: Inactive Member Role Status Dates Jose Eduardo Murray DO Attending Provider Active Ramon Martines MD Primary Care Provider Active Goals (unrecognized section and content) Goals may be documented in a n alternate sectionNo InformationGoals may be documented in an alternate section REASON FOR VISIT (unrecogniz ed section and content) Patient fell hurt left wrist FOR RECORDS PERTAINING TO PATIENTS WHO ARE OR HAVE BEEN ENROLLED IN A CHEMICAL DEPENDENCY/SUBSTANCEABUSE PROGRAM, SOME INFORMATION MAY BE OMITTED. This clinical summary was aggregated from multiple sources. Caution should be exercised in using it in the provision of clinical care. This summary normalizes information from multiple sources, and as a consequence, information in this document may materially change the coding, format and clinical context of patient data. In addition, data may be omitted in some cases. CLINICAL DECISIONS SHOULD BE BASED ON THE PRIMARY CLINICAL RECORDS. [facility]. provides no warranty or guarantee of the accuracy or completeness of information in this document.
[2023-10-13 14:18] LABS: Basophils Absolute Auto 0.1 10^3/uL (0.0-0.1); Basophils Percent Auto 0.8 % (0.2-2.0); Eosinophils Absolute Auto 0.2 10^3/uL (0.0-0.7); Eosinophils Percent Auto 1.4 % (0.9-7.0); Hematocrit 36.8 % (42.0-54.0); Hemoglobin 12.2 g/dL (14.0-18.0); Immature Granulocytes Abs Auto 0.05 10^3/uL (0.00-0.03); Immature Granulocytes Pct Auto 0.4 % (0.0-0.5); Lymphocytes Absolute Auto 1.4 10^3/uL (1.2-3.8); Lymphocytes Percent Auto 11.6 % (20.5-60.0); Mean Corpuscular HGB Conc 33.2 g/dL (29.9-35.2); Mean Corpuscular Hemoglobin 30.3 pg (25.9-34.0); Mean Corpuscular Volume 91.3 fL (80.0-94.0); Mean Platelet Volume 9.4 fL (9.5-13.5); Monocytes Absolute Auto 1.2 10^3/uL (0.3-0.8); Monocytes Percent Auto 10.2 % (1.7-12.0); Neutrophils Absolute Auto 8.9 10^3/uL (1.4-6.5); Neutrophils Percent Auto 75.6 % (43.0-75.0); Platelet Count 306 10^3/uL (150-450); Red Blood Count 4.03 10^6/uL (4.70-6.10); Red Cell Distribution Width 11.9 % (11.0-15.0); White Blood Count 11.8 10^3/uL (4.0-11.0)
[2023-10-13 14:34] LABS: Alanine Aminotransferase 26 U/L (16-63); Albumin Level 3.6 g/dL (3.4-5.0); Alkaline Phosphatase 146 U/L (46-116); Anion Gap 10.6; Aspartate Amino Transferase 24 U/L (15-37); BUN Creatinine Ratio 17.5; Bilirubin Total 0.9 mg/dL (0.2-1.0); Calcium 9.6 mg/dL (8.5-10.1); Carbon Dioxide 30.1 mmol/L (21.0-32.0); Chloride 88 mmol/L (98-107); Estimated GFR (African America >60 (>=60); Estimated GFR (Non-African Ame >60 (>=60); Globulin 3.6 g/dL; Glucose 119 mg/dL (74-106); Potassium 3.7 mmol/L (3.5-5.1); Sodium 125 mmol/L (136-145); Total Protein 7.2 g/dL (6.4-8.2)
[2023-10-13 14:37] LABS: Troponin I High Sensitivity 9.7 pg/mL (4.0-76.1)
--- NOTE | 2023-10-13 15:04 | ED.WEAKNESS1 ---
HPI - Weakness General Chief complaint: Weakness Stated complaint: UPPER EXTREMITY INJURY/ FALL Time Seen by Provider: 10/13/23 13:44 Mode of arrival: Wheelchair History of Present Illness HPI Narrative: 88-year-old female presents with a chief complaint of weakness and falls at home. is at bedside states patient has had increased weakness and falls at home. He has a known history of lumbar stenosis and has chronic weakness in his legs. He also has left upper extremity shoulder weakness. Both of these weakness causing him to have difficulty ambulating with his walker at home. states over last week he has been seen by cardiology and also neurology. They did talk about getting in-home patient physical therapy for him. She has not yet heard back from primary care physician to get this taken care of. She says since that time has had two more falls this week.Patient denies striking head or headache. He is alert and oriented ?3. Related Data Home Medications Medication Instructions Recorded Confirmed aspirin 81 mg tablet,delayed 81 mg PO DAILY 03/27/23 10/13/23 release donepezil 10 mg tablet (Aricept) 10 mg PO DAILY 03/27/23 10/13/23 hydralazine 25 mg tablet 25 mg PO TID 03/27/23 10/13/23 isosorbide mononitrate 60 mg 60 mg PO DAILY 03/27/23 10/13/23 tablet,extended release 24 hr latanoprost 0.005 % eye drops 1 drp ophthalmic (eye) DAILY 03/27/23 10/13/23 lisinopril 20 1 tab PO DAILY 03/27/23 10/13/23 mg-hydrochlorothiazide 25 mg tablet lovastatin 40 mg tablet 40 mg PO DAILY 03/27/23 10/13/23 metformin 500 mg tablet 500 mg PO DAILY 03/27/23 10/13/23 omeprazole 40 mg capsule,delayed 40 mg PO DAILY 03/27/23 10/13/23 release oxybutynin chloride 10 mg 10 mg PO DAILY 03/27/23 10/13/23 tablet,extended release 24 hr tamsulosin 0.4 mg capsule 0.8 mg PO DAILY 03/27/23 10/13/23 vitamins A,C,D-lgod-qosjfe 4,296 2 cap PO DAILY 03/27/23 10/13/23 mcg-226 mg-90 mg capsule (PreserVision AREDS) acetaminophen 500 mg tablet 500 mg PO Q4H PRN pain 06/21/23 10/13/23 (Acetaminophen Extra Strength) citalopram 20 mg tablet 20 mg PO DAILY 06/21/23 10/13/23 naproxen 500 mg tablet 500 mg PO Q12H 10/13/23 10/13/23 zinc 50 mg tablet 50 mg PO DAILY 10/13/23 10/13/23 Previous Rx's Medication Instructions Recorded gabapentin 300 mg capsule 300 mg PO BID #60 caps 09/27/23 Allergies Allergy/AdvReac Type Severity Reaction Status Date / Time No Known Drug Allergies Allergy Verified 10/13/23 13:44 Review of Systems ROS Narrative All Systems are negative except as noted/marked. PFSH PFSH Medical History (Updated 10/13/23 @ 17:31 by Jacquelyn Pham) Skin cancer ?C44.90 - Unspecified malignant neoplasm of skin, unspecified (ICD-10) Prostate cancer ?C61 - Malignant neoplasm of prostate (ICD-10) Postsurgical cardiac pacemaker in situ ?Z95.0 - Presence of cardiac pacemaker (ICD-10) Surgical History (Updated 10/13/23 @ 17:31 by Jacquelyn Pham) History of cholecystectomy ?Z90.49 - Acquired absence of other specified parts of digestive tract (ICD-10) History of cataract surgery ?Z98.49 - Cataract extraction status, unspecified eye (ICD-10) History of bilateral knee replacement ?Z96.653 - Presence of artificial knee joint, bilateral (ICD-10) Family History (Updated 10/13/23 @ 17:28 by Jacquelyn Pham) Brother Family history of myocardial infarction Family history of hypertension Family history of diabetes mellitus Mother Family history of hypertension Family history of diabetes mellitus Sister Family history of diabetes mellitus Social History (Updated 10/13/23 @ 17:27 by Jacquelyn Pham) Within the past year, how often did you have a drink containing alcohol: never Score interpretation: A score less than 4 is consistent with normal alcohol consumption. Smoking status: Never smoker Non-prescribed substance use: denies use Previous occupational history: [employer] Known occupational exposures/hazards: No Highest level of school completed/degree received: high school graduate Are you now , , , , never or living with a partner: In a typical week, how many times do you talk on the telephone with family, friends, or neighbors: 3 or more times per week How often do you get together with friends or relatives: 3 or more times per week How often do you attend cheondoism or bahai services: 4 or more times per year Do you belong to any clubs or organizations such as cheondoism groups unions, fraternal or athletic groups, or school groups: no Total score: 3 Score interpretation: A score of greater than or equal to 2 indicates the lowest level of social isolation. Feel stressed/tense/nervous/anxious/difficulty sleeping: not at all Do you think of yourself as: straight/heterosexual Gender Identity: male Exam Narrative Exam Narrative: Nurses note and vital signs reviewed and patient is not hypoxic. General: The patient appears well and in no apparent distress. Patient is resting comfortably on cart. Skin: Warm, dry, no pallor noted. There is no rash noted. Head: Normocephalic, atraumatic Eye: Normal conjunctiva, no drainage, EOMI. PERRL Ears, Nose, Mouth, and Throat: oral mucosa is moist. Nares patent. Mouth without vesicles. Ear canals patent. Tm's without Erythema Cardiovascular: Regular Rate and Rhythm Respiratory: Patient is in no distress, no accessory muscle use, lungs are clear to auscultation, no wheezing, rales or rhonchi Back: non-tender, no CVA tenderness bilaterally to percussion. GI: Normal bowel sounds, no tenderness to palpation, no masses appreciated. No rebound, guarding, or rigidity noted. Musculoskeletal:chronic bilateral lower extremity weakness, left chronic upper arm weakness,, Lower extremity weakness noted to the bilateral lower extremities four out of five. Neurological: A&O x3, normal speech Psychiatric: Cooperative Constitutional Vital Signs, click to edit/add: Last Vital Signs Temp 98.0 F 10/13/23 19:49 Pulse 63 10/13/23 19:59 Resp 18 10/13/23 19:49 BP 124/51 10/13/23 19:49 Pulse Ox 94 L 10/13/23 20:23 O2 Del Method Room Air 10/13/23 20:23 Course Vital Signs Vital signs: Vital Signs Temperature 98.2 F 10/13/23 13:45 Pulse Rate 64 10/13/23 13:45 Respiratory Rate 18 10/13/23 13:45 Blood Pressure 107/57 10/13/23 13:45 Pulse Oximetry 98 10/13/23 13:45 Temperature 98.0 F 10/13/23 19:49 Pulse Rate 63 10/13/23 19:59 Respiratory Rate 18 10/13/23 19:49 Blood Pressure 124/51 10/13/23 19:49 Pulse Oximetry 94 L 10/13/23 20:23 Oxygen Delivery Method Room Air 10/13/23 20:23 MDM - Weakness MDM Narrative Medical decision making narrative: 88-year-old female presents with a chief complaint of weakness and falls at home. is at bedside states patient has had increased weakness and falls at home. He has a known history of lumbar stenosis and has chronic weakness in his legs. He also has left upper extremity shoulder weakness. Both of these weakness causing him to have difficulty ambulating with his walker at home. states over last week he has been seen by cardiology and also neurology. They did talk about getting in-home patient physical therapy for him. She has not yet heard back from primary care physician to get this taken care of. She says since that time has had two more falls this week.Patient denies striking head or headache. He is alert and oriented ?3. Patient presented here with increased falls and weakness home. Chest x-ray and shoulder x-ray. His EKG shows a normal sinus rhythm no acute changes. CBC BMP and troponin were also reviewed. Sodium is noted to be one twenty-five today. Rock had a sodium of 132 earlier this month. Patient will be admitted here to the hospital for hyponatremia. I did discuss possible placement for the patient as well for physical therapy. Patient's primary care physician is Dr. Tenorio. I spoke to Dr. bejarano, concerning this patient's care. He agrees patient can be admitted for observation for hyponatremia, weakness and falls. Differential Diagnosis Differential diagnosis: Likely dehydration and other (falls weakness, hyponatremia) Medical Records Attestation: I reviewed the patient's medical records. Lab Data Attestation: I reviewed the patient's lab results. Labs: Lab Results 10/13/23 10/13/23 10/13/23 Range/Units 13:54 13:59 15:32 WBC 11.8 H (4.0-11.0) 10^3/uL RBC 4.03 L (4.70-6.10) 10^6/uL Hgb 12.2 L (14.0-18.0) g/dL Hct 36.8 L (42.0-54.0) % MCV 91.3 (80.0-94.0) fL MCH 30.3 (25.9-34.0) pg MCHC 33.2 (29.9-35.2) g/dL RDW 11.9 (11.0-15.0) % Plt Count 306 (150-450) 10^3/uL MPV 9.4 L (9.5-13.5) fL Neut % (Auto) 75.6 H (43.0-75.0) % Lymph % (Auto) 11.6 L (20.5-60.0) % [place] % (Auto) 10.2 (1.7-12.0) % Eos % (Auto) 1.4 (0.9-7.0) % Baso % (Auto) 0.8 (0.2-2.0) % Neut # (Auto) 8.9 H (1.4-6.5) 10^3/uL Lymph # (Auto) 1.4 (1.2-3.8) 10^3/uL [place] # (Auto) 1.2 H (0.3-0.8) 10^3/uL Eos # (Auto) 0.2 (0.0-0.7) 10^3/uL Baso # (Auto) 0.1 (0.0-0.1) 10^3/uL Abs Immat Gran (auto) 0.05 H (0.00-0.03) 10^3/uL Imm/Tot Granulo (auto) 0.4 (0.0-0.5) % Sodium 125 L (136-145) mmol/L Potassium 3.7 (3.5-5.1) mmol/L Chloride 88 L (98-107) mmol/L Carbon Dioxide 30.1 (21.0-32.0) mmol/L Anion Gap 10.6 BUN 20.0 H (7.0-18.0) mg/dL Creatinine 1.14 (0.70-1.30) mg/dL Est GFR ( Amer) >60 (>=60) Est GFR (Non-Af Amer) >60 (>=60) BUN/Creatinine Ratio 17.5 Glucose 119 H (74-106) mg/dL Calcium 9.6 (8.5-10.1) mg/dL Total Bilirubin 0.9 (0.2-1.0) mg/dL AST 24 (15-37) U/L ALT 26 (16-63) U/L Alkaline Phosphatase 146 H (46-116) U/L Troponin I High Sens 9.7 (4.0-76.1) pg/mL Total Protein 7.2 (6.4-8.2) g/dL Albumin 3.6 (3.4-5.0) g/dL Globulin 3.6 g/dL Albumin/Globulin Ratio 1.0 TSH 2.502 (0.358-3.740) uIU/mL SARS-CoV-2 (PCR) Negative (NEGATIVE) Imaging Data Chest x-ray: Attestation: I have reviewed the pertinent imaging results. Radiologist's impression: Patient: EDWIN QUINTANILLA MR#: [id number] : 1935 Acct:[id number] Age/Sex: 88 / M ADM Date: 10/13/23 Loc: ER Attending Dr: Ordering Physician: Asha Cameron Date of Service: 10/13/23 Procedure(s): XR chest 1V Accession Number(s): [id number] cc: Asha Cameron; Ramon Ortiz M.D.~ [facility] [place] [address] Patient Name: EDWIN QUINTANILLA MRN: [id number] date: 1935 Sex: M Assigned Patient Location: ER Current Patient Location: ER Accession/Order Number: [id number] Exam Date: 10/13/2023 14:35 Report Date: 10/13/2023 14:57 At the request of: ASHA CAMERON Procedure: XR chest 1V EXAM: XR shoulder LT min 2V, XR chest 1V HISTORY: fall COMPARISON: Chest study dated 10/03/2023 TECHNIQUE: 3 views of the left shoulder were obtained. FINDINGS: Elevation of the humeral head in relation to the glenoid likely related to rotator cuff tear of uncertain chronicity. Marked glenohumeral joint space narrowing suggested. Mild inferior glenoid spurring. Moderate degenerative changes about the acromioclavicular joint with mild spurring of the acromion. Soft tissues are grossly within normal limits. No definite acute fracture or dislocation. AP view of the chest was obtained with portable technique at 2:31 PM. FINDINGS: Heart and mediastinal contours are unremarkable in appearance. [id number] elevation of the left hemidiaphragm similar to prior study. Pacemaker on the left similar to prior exam. No obvious focal infiltrate or consolidation. Findings compatible with old rib fractures on the right. Mild degenerative changes in the dorsal spine with mild convexity to the right. XR/XR chest 1V IMPRESSION: Left shoulder study fails to demonstrate definite acute fracture or dislocation. Degenerative changes as noted. Chest study fails to demonstrate definite evidence of acute process. Findings compatible with old rib fractures on the right. Follow-up as needed. ECG Data Attestation: ?I have reviewed the pertinent ECG results. Interpretation: 1354 EKG showed normal sinus rhythm with rate of 60 bpm, NV interval her 70 ms, QRS duration 174 ms, paced rhythm, STEMI Discharge Plan Discharge Chief Complaint: Weakness Clinical Impression: Weakness, Falls, Acute hyponatremia Patient Disposition: Admitted as Observation Time of Disposition Decision: 15:20 Condition: Fair Discharge Date/Time: 10/13/23 15:53
[2023-10-13] MEDS: 0.9 % SODIUM CHLORIDE 1,000 ML 1000 ML IV (15:29)
[2023-10-13 15:52] LABS: SARS-CoV-2 Ag NEGATIVE (NEGATIVE)
[2023-10-13 16:13] LABS: Thyroid Stimulating Hormone 2.502 uIU/mL (0.358-3.740)
[2023-10-13] MEDS: HYDRALAZINE HCL 20 MG/ML VIAL 10 MG IVP (16:27)
[2023-10-13 16:36] LABS: Bilirubin Urine NEGATIVE (NEGATIVE); Blood Urine NEGATIVE (NEGATIVE); Clarity Urine CLEAR (CLEAR); Color Urine LT. YELLOW (YELLOW); Glucose Urine UA NEGATIVE (NEGATIVE); Ketones Urine NEGATIVE (NEGATIVE); Leukocyte Esterase Urine NEGATIVE (NEGATIVE); Nitrite Urine NEGATIVE (NEGATIVE); Protein Urine NEGATIVE (NEG/TRACE); Urobilinogen Urine 0.2 EU/dL (0.2-1.0)
[2023-10-13 16:40] LABS: Creatinine Urine Random 43.45 mg/dL (20.00-300.00); Sodium Urine Random 20 mmol/L (30-90)
[2023-10-13 16:42] LABS: Bacteria Urine NONE SEEN #/HPF (NONE SEEN); Mucus Urine NONE SEEN (NONE SEEN); RBC Urine NONE SEEN #/HPF (0-2); Squamous Epithelial Cell Urine NONE SEEN #/LPF (NONE/RARE); WBC Urine NONE SEEN #/HPF (NONE SEEN)
[2023-10-13 16:43] LABS: Cast Seen? NONE SEEN #/LPF (NONE SEEN); Crystals Seen? None Seen #/HPF (None Seen)
[2023-10-13] MEDS: ISOSORBIDE MONONITRATE 60 MG TAB.ER.24H PO (17:45)
[2023-10-13] MEDS: 0.9 % SODIUM CHLORIDE 1,000 ML 100 ML IV (17:45)
[2023-10-13] MEDS: ENOXAPARIN SODIUM 40 MG/0.4 ML SYRINGE SUBQ (17:46)
[2023-10-13 21:20] LABS: Anion Gap 8.1; BUN Creatinine Ratio 18.5; Calcium 9.2 mg/dL (8.5-10.1); Carbon Dioxide 31.1 mmol/L (21.0-32.0); Chloride 91 mmol/L (98-107); Estimated GFR (African America >60 (>=60); Estimated GFR (Non-African Ame >60 (>=60); Glucose 149 mg/dL (74-106); Potassium 4.2 mmol/L (3.5-5.1); Sodium 126 mmol/L (136-145)
[2023-10-13] MEDS: HYDRALAZINE HCL 25 MG TABLET PO (21:28)
[2023-10-13] MEDS: DONEPEZIL HCL 10 MG TABLET PO (21:28)
[2023-10-13] MEDS: GABAPENTIN 300 MG CAPSULE PO (21:28)
[2023-10-13] MEDS: ATORVASTATIN CALCIUM 10 MG TABLET PO (21:29)
[2023-10-13] MEDS: TAMSULOSIN HCL 0.4 MG CAPSULE 0.8 MG PO (21:29)
[2023-10-14] VITALS (18 sets, daily range): BP systolic 124–176; BP diastolic 56–78; PULSE 59–86; RESP 16–18; TEMP 36.7–37.1; O2SAT 92–93
[2023-10-14] MEDS: 0.9 % SODIUM CHLORIDE 1,000 ML 100 ML IV ×3 (03:52→23:48)
[2023-10-14 05:21] LABS: Basophils Absolute Auto 0.1 10^3/uL (0.0-0.1); Basophils Percent Auto 0.8 % (0.2-2.0); Eosinophils Absolute Auto 0.3 10^3/uL (0.0-0.7); Eosinophils Percent Auto 3.3 % (0.9-7.0); Hemoglobin 10.6 g/dL (14.0-18.0); Immature Granulocytes Abs Auto 0.03 10^3/uL (0.00-0.03); Immature Granulocytes Pct Auto 0.4 % (0.0-0.5); Lymphocytes Absolute Auto 1.7 10^3/uL (1.2-3.8); Lymphocytes Percent Auto 19.5 % (20.5-60.0); Mean Corpuscular HGB Conc 33.1 g/dL (29.9-35.2); Mean Corpuscular Hemoglobin 30.1 pg (25.9-34.0); Mean Corpuscular Volume 90.9 fL (80.0-94.0); Mean Platelet Volume 9.7 fL (9.5-13.5); Monocytes Absolute Auto 0.9 10^3/uL (0.3-0.8); Monocytes Percent Auto 10.8 % (1.7-12.0); Neutrophils Absolute Auto 5.6 10^3/uL (1.4-6.5); Neutrophils Percent Auto 65.2 % (43.0-75.0); Platelet Count 250 10^3/uL (150-450); Red Blood Count 3.52 10^6/uL (4.70-6.10); Red Cell Distribution Width 12.1 % (11.0-15.0); White Blood Count 8.6 10^3/uL (4.0-11.0)
[2023-10-14 05:39] LABS: Alanine Aminotransferase 23 U/L (16-63); Albumin Globulin Ratio 0.9; Albumin Level 2.8 g/dL (3.4-5.0); Alkaline Phosphatase 118 U/L (46-116); Anion Gap 9.2; Aspartate Amino Transferase 21 U/L (15-37); BUN Creatinine Ratio 17.3; Bilirubin Total 0.6 mg/dL (0.2-1.0); Calcium 8.9 mg/dL (8.5-10.1); Carbon Dioxide 28.9 mmol/L (21.0-32.0); Chloride 94 mmol/L (98-107); Estimated GFR (African America >60 (>=60); Estimated GFR (Non-African Ame >60 (>=60); Globulin 3.2 g/dL; Glucose 104 mg/dL (74-106); Potassium 4.1 mmol/L (3.5-5.1); Sodium 128 mmol/L (136-145)
[2023-10-14] MEDS: CITALOPRAM HYDROBROMIDE 20 MG TABLET PO (08:45)
[2023-10-14] MEDS: ASPIRIN 81 MG TABLET.DR PO (08:45)
[2023-10-14] MEDS: OMEPRAZOLE 40 MG CAPSULE.DR PO (08:45)
[2023-10-14] MEDS: OXYBUTYNIN CHLORIDE 5 MG TAB XL 10 MG PO (08:45)
[2023-10-14] MEDS: HYDRALAZINE HCL 25 MG TABLET PO ×3 (08:45→20:40)
[2023-10-14] MEDS: GABAPENTIN 300 MG CAPSULE PO ×2 (08:45→20:41)
[2023-10-14 14:05] LABS: SARS-CoV-2 NAA NOT DETECTED (NOT DETECTE)
[2023-10-14] MEDS: ISOSORBIDE MONONITRATE 60 MG TAB.ER.24H PO (15:33)
[2023-10-14] MEDS: METHYLPREDNISOLONE SOD SUCC PF 125 MG/2 ML VIAL 60 MG IVP ×2 (15:33→20:41)
[2023-10-14] MEDS: ENOXAPARIN SODIUM 40 MG/0.4 ML SYRINGE SUBQ (15:34)
--- NOTE | 2023-10-14 17:23 | PM.HP ---
H&P: HPI History of Present Illness Chief complaint: FALL WEAKNESS ACUTE HYPONATREMIA Narrative: 88 y/o male to ER with weakness and falls. History of lumbar spinal stenosis and worsening pain in low back. Frequent radicular pain and causes legs to give out. Patient has fallen multiple times at home. C/o increased weakness over past few days. Very unsteady when up and moving. To ER and labs showed sodium 125 and admitted. Started IV fluids and PT/OT. Resumed home medication. Continues to c/o pain and weakness in legs. Review of Systems ROS Constitutional Denies: fever, chills or night sweats Cardiovascular Denies: chest pain, palpitations or edema Respiratory Denies: shortness of breath, cough or wheezing Gastrointestinal Denies: abdominal pain, nausea, vomiting or diarrhea Genitourinary Denies: painful urination PFSH PFS Medical History (Updated 10/14/23 @ 10:51 by Ramon Ortiz MD) Kidney stone on right side ?N20.0 - Calculus of kidney (ICD-10) Degenerative disc disease Skin cancer ?C44.90 - Unspecified malignant neoplasm of skin, unspecified (ICD-10) Prostate cancer ?C61 - Malignant neoplasm of prostate (ICD-10) Postsurgical cardiac pacemaker in situ ?Z95.0 - Presence of cardiac pacemaker (ICD-10) Surgical History (Updated 10/13/23 @ 17:31 by Jacquelyn Pham) History of cholecystectomy ?Z90.49 - Acquired absence of other specified parts of digestive tract (ICD-10) History of cataract surgery ?Z98.49 - Cataract extraction status, unspecified eye (ICD-10) History of bilateral knee replacement ?Z96.653 - Presence of artificial knee joint, bilateral (ICD-10) Family History (Updated 10/13/23 @ 17:28 by Jacquelyn Pham) Brother Family history of myocardial infarction Family history of hypertension Family history of diabetes mellitus Mother Family history of hypertension Family history of diabetes mellitus Sister Family history of diabetes mellitus Social History (Updated 10/13/23 @ 17:27 by Jacquelyn Pham) Within the past year, how often did you have a drink containing alcohol: never Score interpretation: A score less than 4 is consistent with normal alcohol consumption. Smoking status: Never smoker Non-prescribed substance use: denies use Previous [facility] history: [employer] [place] Known occupational exposures/hazards: No Highest level of school completed/degree received: high school graduate Are you now , , , , never or living with a partner: In a typical week, how many times do you talk on the telephone with family, friends, or neighbors: 3 or more times per week How often do you get together with friends or relatives: 3 or more times per week How often do you attend rastafari or mandaen services: 4 or more times per year Do you belong to any clubs or organizations such as rastafari groups unions, [facility] or athletic groups, or school groups: no Total score: 3 Score interpretation: A score of greater than or equal to 2 indicates the lowest level of social isolation. Feel stressed/tense/nervous/anxious/difficulty sleeping: not at all Do you think of yourself as: straight/heterosexual Gender Identity: male Meds Home Medications and Allergies Home Medications Medication Instructions Recorded Confirmed Type aspirin 81 mg tablet,delayed 81 mg PO DAILY 03/27/23 10/13/23 History release donepezil 10 mg tablet (Aricept) 10 mg PO DAILY 03/27/23 10/13/23 History hydralazine 25 mg tablet 25 mg PO TID 03/27/23 10/13/23 History isosorbide mononitrate 60 mg 60 mg PO DAILY 03/27/23 10/13/23 History tablet,extended release 24 hr latanoprost 0.005 % eye drops 1 drp ophthalmic (eye) DAILY 03/27/23 10/13/23 History lisinopril 20 1 tab PO DAILY 03/27/23 10/13/23 History mg-hydrochlorothiazide 25 mg tablet lovastatin 40 mg tablet 40 mg PO DAILY 03/27/23 10/13/23 History metformin 500 mg tablet 500 mg PO DAILY 03/27/23 10/13/23 History omeprazole 40 mg capsule,delayed 40 mg PO DAILY 03/27/23 10/13/23 History release oxybutynin chloride 10 mg 10 mg PO DAILY 03/27/23 10/13/23 History tablet,extended release 24 hr tamsulosin 0.4 mg capsule 0.8 mg PO DAILY 03/27/23 10/13/23 History vitamins A,C,V-onom-eizolx 4,296 2 cap PO DAILY 03/27/23 10/13/23 History mcg-226 mg-90 mg capsule (PreserVision AREDS) acetaminophen 500 mg tablet 500 mg PO Q4H PRN pain 06/21/23 10/13/23 History (Acetaminophen Extra Strength) citalopram 20 mg tablet 20 mg PO DAILY 06/21/23 10/13/23 History gabapentin 300 mg capsule 300 mg PO BID #60 caps 09/27/23 10/13/23 Rx naproxen 500 mg tablet 500 mg PO Q12H 10/13/23 10/13/23 History zinc 50 mg tablet 50 mg PO DAILY 10/13/23 10/13/23 History Allergies Allergy/AdvReac Type Severity Reaction Status Date / Time No Known Drug Allergies Allergy Verified 10/13/23 13:44 Exam Constitutional Vital Signs, click to edit/add: Last Vital Signs Temp 98.1 F 10/14/23 13:44 Pulse 61 10/14/23 16:00 Resp 16 10/14/23 13:44 BP 124/56 10/14/23 13:44 Pulse Ox 92 L 10/14/23 13:44 O2 Del Method Room Air 10/14/23 13:44 Documenting provider has reviewed patient's vital signs: yes Common normals: no apparent distress, oriented x3 and alert HENMT Common normals: normocephalic Eye Common normals: PERRL and EOMs intact bilaterally Respiratory Common normals: normal respiratory effort and clear to auscultation bilaterally Cardio Common normals: regular rate, regular rhythm, no gallops, no murmurs and no rub GI Common normals: Normal to inspection, nondistended, normoactive bowel sounds present and non-tender Extremity Common normals: no pedal edema Results Labs Labs: Short CBC 10/14/23 Range/Units 04:53 WBC 8.6 (4.0-11.0) 10^3/uL Hgb 10.6 L (14.0-18.0) g/dL Hct 32.0 L (42.0-54.0) % Plt Count 250 (150-450) 10^3/uL BMP 10/13/23 10/14/23 21:05 04:53 Sodium 126 L 128 L Potassium 4.2 4.1 Chloride 91 L 94 L Carbon Dioxide 31.1 28.9 BUN 20.0 H 17.0 Creatinine 1.08 0.98 Glucose 149 H 104 Calcium 9.2 8.9 Liver Function 10/14/23 Range/Units 04:53 Total Bilirubin 0.6 (0.2-1.0) mg/dL AST 21 (15-37) U/L ALT 23 (16-63) U/L Alkaline Phosphatase 118 H (46-116) U/L Albumin 2.8 L (3.4-5.0) g/dL Assessment and Plan Assessment and Plan (1) Acute hyponatremia: (2) Falls: (3) Weakness: (4) Lumbar stenosis with neurogenic claudication: (5) Type 2 diabetes mellitus with hyperglycemia: (6) Benign essential hypertension: (7) Chronic heart failure with preserved ejection fraction (HFpEF): (8) Paroxysmal atrial fibrillation: (9) Senile dementia: (10) CAD (coronary artery disease), [place] coronary artery: Plan Sodium minimally improved and contiue IV fluids. May need oral NaCl supplement. Start PT/OT for weakness. Add solu-medrol. Resume home medication. Will need at least 2 midnights in the hospital. Urinary Catheter Management Urinary Catheter Management Urethral: Cath placed during this visit: yes Urethral indwelling: No Insertion date: 10/14/23 Insertion time: 00:12
[2023-10-14] MEDS: TAMSULOSIN HCL 0.4 MG CAPSULE 0.8 MG PO (20:40)
[2023-10-14] MEDS: DONEPEZIL HCL 10 MG TABLET PO (20:41)
[2023-10-14] MEDS: ATORVASTATIN CALCIUM 10 MG TABLET PO (20:41)
[2023-10-15] VITALS (22 sets, daily range): BP systolic 157–185; BP diastolic 69–79; PULSE 60–92; RESP 18–20; TEMP 36.4–37.1; O2SAT 90–94
[2023-10-15] MEDS: METHYLPREDNISOLONE SOD SUCC PF 125 MG/2 ML VIAL 60 MG IVP ×4 (02:14→21:58)
[2023-10-15] MEDS: HYDRALAZINE HCL 20 MG/ML VIAL 10 MG IVP (04:22)
[2023-10-15 06:04] LABS: Basophils Percent Auto 0.1 % (0.2-2.0); Hematocrit 34.2 % (42.0-54.0); Hemoglobin 11.4 g/dL (14.0-18.0); Immature Granulocytes Abs Auto 0.03 10^3/uL (0.00-0.03); Immature Granulocytes Pct Auto 0.4 % (0.0-0.5); Lymphocytes Absolute Auto 0.4 10^3/uL (1.2-3.8); Lymphocytes Percent Auto 5.5 % (20.5-60.0); Mean Corpuscular HGB Conc 33.3 g/dL (29.9-35.2); Mean Corpuscular Hemoglobin 30.6 pg (25.9-34.0); Mean Corpuscular Volume 91.7 fL (80.0-94.0); Monocytes Absolute Auto 0.1 10^3/uL (0.3-0.8); Monocytes Percent Auto 0.7 % (1.7-12.0); Neutrophils Absolute Auto 6.8 10^3/uL (1.4-6.5); Neutrophils Percent Auto 93.3 % (43.0-75.0); Platelet Count 236 10^3/uL (150-450); Red Blood Count 3.73 10^6/uL (4.70-6.10); White Blood Count 7.3 10^3/uL (4.0-11.0)
[2023-10-15 06:27] LABS: Alanine Aminotransferase 23 U/L (16-63); Albumin Globulin Ratio 0.8; Albumin Level 2.9 g/dL (3.4-5.0); Alkaline Phosphatase 131 U/L (46-116); Anion Gap 11.8; Aspartate Amino Transferase 19 U/L (15-37); BUN Creatinine Ratio 18.9; Bilirubin Total 0.5 mg/dL (0.2-1.0); Calcium 8.7 mg/dL (8.5-10.1); Carbon Dioxide 25.5 mmol/L (21.0-32.0); Chloride 98 mmol/L (98-107); Estimated GFR (African America >60 (>=60); Estimated GFR (Non-African Ame >60 (>=60); Globulin 3.8 g/dL; Glucose 199 mg/dL (74-106); Potassium 4.3 mmol/L (3.5-5.1); Sodium 131 mmol/L (136-145); Total Protein 6.7 g/dL (6.4-8.2)
[2023-10-15] MEDS: CITALOPRAM HYDROBROMIDE 20 MG TABLET PO (09:30)
[2023-10-15] MEDS: GABAPENTIN 300 MG CAPSULE PO ×2 (09:30→21:58)
[2023-10-15] MEDS: 0.9 % SODIUM CHLORIDE 1,000 ML 100 ML IV ×2 (09:30→19:25)
[2023-10-15] MEDS: ASPIRIN 81 MG TABLET.DR PO (09:31)
[2023-10-15] MEDS: OXYBUTYNIN CHLORIDE 5 MG TAB XL 10 MG PO (09:31)
[2023-10-15] MEDS: HYDRALAZINE HCL 25 MG TABLET PO ×3 (09:33→21:58)
[2023-10-15] MEDS: OMEPRAZOLE 40 MG CAPSULE.DR PO (09:36)
[2023-10-15 11:03] LABS: Glucometer 211 mg/dL (74-106)
[2023-10-15] MEDS: SODIUM CHLORIDE 1,000 MG TABLET 1000 MG PO ×2 (11:26→21:58)
[2023-10-15] MEDS: ISOSORBIDE MONONITRATE 60 MG TAB.ER.24H PO (14:00)
[2023-10-15 15:59] LABS: Glucometer 288 mg/dL (74-106)
--- NOTE | 2023-10-15 16:00 | P.PN_ITS ---
Progress Note: Subjective Subjective Interval history: Patient stable today. Pain tolerable with medication. Continues to have radicular symptoms and weakness in legs. Very difficult to ambulate and unsteady with walking. Sodium improved. Decreased appetite but no emesis or diarrhea. No chest pain or palpitations. No SOB or cough. Exam Constitutional Vital Signs, click to edit/add: Last Vital Signs Temp 98.8 F 10/15/23 13:28 Pulse 69 10/15/23 15:54 Resp 20 10/15/23 13:28 BP 160/79 H 10/15/23 13:28 Pulse Ox 91 L 10/15/23 13:28 O2 Del Method Room Air 10/15/23 13:28 Documenting provider has reviewed patient's vital signs: yes Common normals: no apparent distress, oriented x3 and alert HENMT Common normals: normocephalic Eye Common normals: PERRL and EOMs intact bilaterally Respiratory Common normals: normal respiratory effort and clear to auscultation bilaterally Cardio Common normals: regular rate, regular rhythm, no gallops, no murmurs and no rub GI Common normals: Normal to inspection, nondistended, normoactive bowel sounds present and non-tender Extremity Common normals: no pedal edema Progress Note: Objective Labs Labs: Short CBC 10/15/23 Range/Units 04:53 WBC 7.3 (4.0-11.0) 10^3/uL Hgb 11.4 L (14.0-18.0) g/dL Hct 34.2 L (42.0-54.0) % Plt Count 236 (150-450) 10^3/uL BMP 10/15/23 04:53 Sodium 131 L Potassium 4.3 Chloride 98 Carbon Dioxide 25.5 BUN 17.0 Creatinine 0.90 Glucose 199 H Calcium 8.7 Liver Function 10/15/23 Range/Units 04:53 Total Bilirubin 0.5 (0.2-1.0) mg/dL AST 19 (15-37) U/L ALT 23 (16-63) U/L Alkaline Phosphatase 131 H (46-116) U/L Albumin 2.9 L (3.4-5.0) g/dL Progress Note: A&P Assessment and Plan (1) Acute hyponatremia: (2) Falls: (3) Weakness: (4) Lumbar stenosis with neurogenic claudication: (5) Type 2 diabetes mellitus with hyperglycemia: (6) Benign essential hypertension: (7) Chronic heart failure with preserved ejection fraction (HFpEF): (8) Paroxysmal atrial fibrillation: (9) Senile dementia: (10) CAD (coronary artery disease), [place] coronary artery: Plan Sodium improved but still low and add oral NaCl. Continue PT for weakness. Start accuchecks and ISS due to addition of steroids. Patient will likely need SNF upon discharge. Urinary Catheter Management Urinary Catheter Management Urethral: Cath placed during this visit: yes Urethral indwelling: No Insertion date: 10/14/23 Insertion time: 00:12
[2023-10-15] MEDS: ENOXAPARIN SODIUM 40 MG/0.4 ML SYRINGE SUBQ (16:03)
[2023-10-15] MEDS: INSULIN ASPART 300 UNIT/3 ML PEN SUBQ ×2 (16:03→21:57)
[2023-10-15] MEDS: DONEPEZIL HCL 10 MG TABLET PO (21:58)
[2023-10-15] MEDS: ATORVASTATIN CALCIUM 10 MG TABLET PO (21:58)
[2023-10-15] MEDS: TAMSULOSIN HCL 0.4 MG CAPSULE 0.8 MG PO (22:00)
[2023-10-15 22:05] LABS: Glucometer 259 mg/dL (74-106)
[2023-10-16] VITALS (18 sets, daily range): BP systolic 148–194; BP diastolic 64–84; PULSE 61–82; RESP 16–18; TEMP 36.7–37; O2SAT 90–95
[2023-10-16] MEDS: METHYLPREDNISOLONE SOD SUCC PF 125 MG/2 ML VIAL 60 MG IVP ×4 (03:09→21:18)
[2023-10-16] MEDS: 0.9 % SODIUM CHLORIDE 1,000 ML 100 ML IV (05:27)
[2023-10-16] MEDS: HYDRALAZINE HCL 20 MG/ML VIAL 10 MG IVP (05:31)
[2023-10-16 05:41] LABS: Basophils Percent Auto 0.1 % (0.2-2.0); Hematocrit 34.7 % (42.0-54.0); Hemoglobin 11.2 g/dL (14.0-18.0); Immature Granulocytes Abs Auto 0.03 10^3/uL (0.00-0.03); Immature Granulocytes Pct Auto 0.3 % (0.0-0.5); Lymphocytes Absolute Auto 0.4 10^3/uL (1.2-3.8); Lymphocytes Percent Auto 3.6 % (20.5-60.0); Mean Corpuscular HGB Conc 32.3 g/dL (29.9-35.2); Mean Corpuscular Hemoglobin 30.2 pg (25.9-34.0); Mean Corpuscular Volume 93.5 fL (80.0-94.0); Mean Platelet Volume 9.9 fL (9.5-13.5); Monocytes Absolute Auto 0.2 10^3/uL (0.3-0.8); Neutrophils Absolute Auto 11.1 10^3/uL (1.4-6.5); Platelet Count 221 10^3/uL (150-450); Red Blood Count 3.71 10^6/uL (4.70-6.10); White Blood Count 11.8 10^3/uL (4.0-11.0)
[2023-10-16 05:58] LABS: Alanine Aminotransferase 21 U/L (16-63); Albumin Globulin Ratio 0.8; Albumin Level 2.8 g/dL (3.4-5.0); Alkaline Phosphatase 118 U/L (46-116); Anion Gap 12.7; Aspartate Amino Transferase 20 U/L (15-37); BUN Creatinine Ratio 23.9; Bilirubin Total 0.4 mg/dL (0.2-1.0); Calcium 8.8 mg/dL (8.5-10.1); Carbon Dioxide 24.6 mmol/L (21.0-32.0); Chloride 97 mmol/L (98-107); Estimated GFR (African America >60 (>=60); Estimated GFR (Non-African Ame >60 (>=60); Globulin 3.7 g/dL; Glucose 248 mg/dL (74-106); Potassium 4.3 mmol/L (3.5-5.1); Sodium 130 mmol/L (136-145); Total Protein 6.5 g/dL (6.4-8.2)
[2023-10-16] MEDS: INSULIN ASPART 300 UNIT/3 ML PEN SUBQ ×4 (07:59→21:22)
[2023-10-16] MEDS: HYDRALAZINE HCL 25 MG TABLET PO ×3 (08:47→21:17)
[2023-10-16] MEDS: OMEPRAZOLE 40 MG CAPSULE.DR PO (08:47)
[2023-10-16] MEDS: GABAPENTIN 300 MG CAPSULE PO ×2 (08:47→21:17)
[2023-10-16] MEDS: CITALOPRAM HYDROBROMIDE 20 MG TABLET PO (08:47)
[2023-10-16] MEDS: ASPIRIN 81 MG TABLET.DR PO (08:47)
[2023-10-16] MEDS: SODIUM CHLORIDE 1,000 MG TABLET 1000 MG PO ×3 (08:47→21:17)
[2023-10-16] MEDS: OXYBUTYNIN CHLORIDE 5 MG TAB XL 10 MG PO (08:48)
[2023-10-16 11:39] LABS: Glucometer 330 mg/dL (74-106)
[2023-10-16] MEDS: ISOSORBIDE MONONITRATE 60 MG TAB.ER.24H PO (14:56)
--- NOTE | 2023-10-16 15:46 | P.PN_ITS ---
Progress Note: Subjective Subjective Interval history: Patient unchanged today. Continues to c/o pain but tolerable with medication. Continues to have radicular symptoms and weakness in legs. Very difficult to ambulate and unsteady with walking. Sodium unchanged. Decreased appetite but no emesis or diarrhea. No chest pain or palpitations. No SOB or cough. Exam Constitutional Vital Signs, click to edit/add: Last Vital Signs Temp 98.5 F 10/16/23 13:26 Pulse 77 10/16/23 14:00 Resp 18 10/16/23 13:26 BP 148/67 H 10/16/23 13:26 Pulse Ox 93 L 10/16/23 13:26 O2 Del Method Room Air 10/16/23 13:26 Documenting provider has reviewed patient's vital signs: yes Common normals: no apparent distress, oriented x3 and alert HENMT Common normals: normocephalic Eye Common normals: PERRL and EOMs intact bilaterally Respiratory Common normals: normal respiratory effort and clear to auscultation bilaterally Cardio Common normals: regular rate, regular rhythm, no gallops, no murmurs and no rub GI Common normals: Normal to inspection, nondistended, normoactive bowel sounds present and non-tender Extremity Common normals: no pedal edema Progress Note: Objective Labs Labs: Short CBC 10/16/23 Range/Units 04:34 WBC 11.8 H (4.0-11.0) 10^3/uL Hgb 11.2 L (14.0-18.0) g/dL Hct 34.7 L (42.0-54.0) % Plt Count 221 (150-450) 10^3/uL BMP 10/16/23 04:34 Sodium 130 L Potassium 4.3 Chloride 97 L Carbon Dioxide 24.6 BUN 22.0 H Creatinine 0.92 Glucose 248 H Calcium 8.8 Liver Function 10/16/23 Range/Units 04:34 Total Bilirubin 0.4 (0.2-1.0) mg/dL AST 20 (15-37) U/L ALT 21 (16-63) U/L Alkaline Phosphatase 118 H (46-116) U/L Albumin 2.8 L (3.4-5.0) g/dL Progress Note: A&P Assessment and Plan (1) Acute hyponatremia: (2) Falls: (3) Weakness: (4) Lumbar stenosis with neurogenic claudication: (5) Type 2 diabetes mellitus with hyperglycemia: (6) Benign essential hypertension: (7) Chronic heart failure with preserved ejection fraction (HFpEF): (8) Paroxysmal atrial fibrillation: (9) Senile dementia: (10) CAD (coronary artery disease), [place] coronary artery: Plan Patient unchanged. Sodium remains low and increase oral NaCl to TID. Saline lock IV. Continued weakness and unsteady gait. Continue PT. BS elevated and review of medication shows patient did not get restarted on home metformin and resume. Patient will need SNF upon discharge. Urinary Catheter Management Urinary Catheter Management Urethral: Cath placed during this visit: yes Urethral indwelling: No Insertion date: 10/14/23 Insertion time: 00:12
[2023-10-16] MEDS: ENOXAPARIN SODIUM 40 MG/0.4 ML SYRINGE SUBQ (16:04)
[2023-10-16 16:05] LABS: Glucometer 316 mg/dL (74-106)
[2023-10-16] MEDS: METFORMIN HCL 500 MG TAB.ER.24H PO (17:28)
[2023-10-16 20:57] LABS: Glucometer 275 mg/dL (74-106)
[2023-10-16] MEDS: TAMSULOSIN HCL 0.4 MG CAPSULE 0.8 MG PO (21:17)
[2023-10-16] MEDS: ATORVASTATIN CALCIUM 10 MG TABLET PO (21:17)
[2023-10-16] MEDS: LATANOPROST 0.005% 2.5 ML BOTTLE 1 DROP EYE-BOTH (21:18)
[2023-10-16] MEDS: DONEPEZIL HCL 10 MG TABLET PO (21:22)
[2023-10-17] VITALS (12 sets, daily range): BP systolic 153–172; BP diastolic 66–78; PULSE 64–90; RESP 16–18; TEMP 36.6–36.7; O2SAT 92–95; BMI 28.4
[2023-10-17] MEDS: METHYLPREDNISOLONE SOD SUCC PF 125 MG/2 ML VIAL 60 MG IVP ×2 (02:59→10:13)
[2023-10-17] MEDS: SODIUM CHLORIDE 1,000 MG TABLET 1000 MG PO ×2 (05:22→14:21)
[2023-10-17] MEDS: HYDRALAZINE HCL 20 MG/ML VIAL 10 MG IVP (05:22)
[2023-10-17 06:01] LABS: Basophils Percent Auto 0.1 % (0.2-2.0); Hematocrit 34.2 % (42.0-54.0); Immature Granulocytes Abs Auto 0.07 10^3/uL (0.00-0.03); Immature Granulocytes Pct Auto 0.5 % (0.0-0.5); Lymphocytes Absolute Auto 0.4 10^3/uL (1.2-3.8); Lymphocytes Percent Auto 3.1 % (20.5-60.0); Mean Corpuscular HGB Conc 32.2 g/dL (29.9-35.2); Mean Corpuscular Hemoglobin 29.8 pg (25.9-34.0); Mean Corpuscular Volume 92.7 fL (80.0-94.0); Mean Platelet Volume 9.9 fL (9.5-13.5); Monocytes Absolute Auto 0.3 10^3/uL (0.3-0.8); Monocytes Percent Auto 2.2 % (1.7-12.0); Neutrophils Absolute Auto 12.3 10^3/uL (1.4-6.5); Neutrophils Percent Auto 94.1 % (43.0-75.0); Platelet Count 226 10^3/uL (150-450); Red Blood Count 3.69 10^6/uL (4.70-6.10)
[2023-10-17 06:25] LABS: Alanine Aminotransferase 41 U/L (16-63); Albumin Globulin Ratio 0.8; Albumin Level 2.7 g/dL (3.4-5.0); Alkaline Phosphatase 102 U/L (46-116); Anion Gap 12.9; Aspartate Amino Transferase 27 U/L (15-37); BUN Creatinine Ratio 28.4; Bilirubin Total 0.4 mg/dL (0.2-1.0); Calcium 8.6 mg/dL (8.5-10.1); Carbon Dioxide 26.4 mmol/L (21.0-32.0); Chloride 96 mmol/L (98-107); Estimated GFR (African America >60 (>=60); Estimated GFR (Non-African Ame >60 (>=60); Globulin 3.5 g/dL; Glucose 203 mg/dL (74-106); Potassium 4.3 mmol/L (3.5-5.1); Sodium 131 mmol/L (136-145); Total Protein 6.2 g/dL (6.4-8.2)
[2023-10-17] MEDS: OMEPRAZOLE 40 MG CAPSULE.DR PO (09:47)
[2023-10-17] MEDS: ASPIRIN 81 MG TABLET.DR PO (09:47)
[2023-10-17] MEDS: HYDRALAZINE HCL 25 MG TABLET PO ×2 (09:47→14:21)
[2023-10-17] MEDS: OXYBUTYNIN CHLORIDE 5 MG TAB XL 10 MG PO (09:47)
[2023-10-17] MEDS: DOCUSATE SODIUM 100 MG CAPSULE PO (09:47)
[2023-10-17] MEDS: GABAPENTIN 300 MG CAPSULE PO (09:47)
[2023-10-17] MEDS: CITALOPRAM HYDROBROMIDE 20 MG TABLET PO (09:47)
[2023-10-17] MEDS: METFORMIN HCL 500 MG TAB.ER.24H PO (09:48)
[2023-10-17 11:37] LABS: Glucometer 354 mg/dL (74-106)
[2023-10-17] MEDS: INSULIN ASPART 300 UNIT/3 ML PEN SUBQ (11:44)
--- NOTE | 2023-10-17 11:53 | CM.NOTE ---
Rounds made with Dr. Ortiz. Plan for discharge is today to [facility]. Awaiting Facility acceptance.
--- NOTE | 2023-10-17 12:26 | CM.NOTE ---
Spoke with pt regarding PT recommendations for skilled therapy. Pt would like the [facility], no second choice. Called William at [facility] and faxed clinical.
[2023-10-17 13:07] LABS: Osmolality, Urine 245 mOsmol/kg (.)
[2023-10-17] MEDS: ISOSORBIDE MONONITRATE 60 MG TAB.ER.24H PO (14:21)
--- NOTE | 2023-10-17 14:38 | CM.NOTE ---
Pt accepted at [facility] and able to discharge skilled today. Pt will transport to [facility] by [facility] between 4:00- 4:30 today. Updated pt and RN.
--- NOTE | 2023-10-17 14:50 | CM.NOTE ---
Important Message From Medicare discussed with pt, pt verbalizes understanding and signs paper. Original given to pt and copy placed on pt's chart.
--- NOTE | 2023-10-17 15:22 | NUTR.NU ---
called report to [facility] at this time
--- NOTE | 2023-10-17 15:33 | PM.DS1 ---
DS: Providers Provider Date of admission: 10/13/23 15:58 Primary care physician: Ramon Ortiz MD Consults: 10/13/23 Consult to Urology Routine Consulting Provider: Deven Butler Reason for consultation: urinary retention 10/13/23 15:41 Occupational Therapy Eval and Treat Routine Reason for consultation: Ambulatory dysfunction/weakness Physical Therapy Eval and Treat Routine Reason for consultation: Ambulatory dysfunction/weakness DS: Diagnosis Discharge Diagnosis (1) Acute hyponatremia: (2) Falls: (3) Weakness: (4) Lumbar stenosis with neurogenic claudication: (5) Type 2 diabetes mellitus with hyperglycemia: (6) Benign essential hypertension: (7) Chronic heart failure with preserved ejection fraction (HFpEF): (8) Paroxysmal atrial fibrillation: (9) Senile dementia: (10) CAD (coronary artery disease), [place] coronary artery: DS: Summary Hospital Course Hospital Course: Reason for admission: See H&P for details. 88 y/o male to ER with weakness and falls. History of lumbar spinal stenosis and worsening pain in low back. Frequent radicular pain and causes legs to give out. Patient has fallen multiple times at home. C/o increased weakness over past few days. Very unsteady when up and moving. To ER and labs showed sodium 125 and admitted. Hospital course: Started IV fluids and PT/OT. Resumed home medication. Continued to c/o pain and weakness in legs. Very unsteady when up and moving. Added solu-medrol and seemed to help pain. Sodium remained low and started oral NaCl. Continued weakness and PT recommended SNF. Sodium improved and stable. Pain tolerable with medication. Transferred to SNF in stable condition. Resume medication as directed. Time Spent with Patient Time attestation: Total time spent providing and/or coordinating discharge services: Exam Constitutional Vital Signs, click to edit/add: Last Vital Signs Temp 97.8 F 10/17/23 13:26 Pulse 73 10/17/23 13:26 Resp 18 10/17/23 13:26 BP 153/76 H 10/17/23 13:26 Pulse Ox 95 10/17/23 13:26 O2 Del Method Room Air 10/17/23 13:26 Documenting provider has reviewed patient's vital signs: yes Common normals: no apparent distress, oriented x3 and alert HENMT Common normals: normocephalic Eye Common normals: PERRL and EOMs intact bilaterally Respiratory Common normals: normal respiratory effort and clear to auscultation bilaterally Cardio Common normals: regular rate, regular rhythm, no gallops, no murmurs and no rub GI Common normals: Normal to inspection, nondistended, normoactive bowel sounds present and non-tender Extremity Common normals: no pedal edema DS: Data Data Completed and Pending Labs on day of discharge: Labs from last 24 hours 10/17/23 10/17/23 10/16/23 11:36 04:55 20:52 WBC 13.0 H RBC 3.69 L Hgb 11.0 L Hct 34.2 L MCV 92.7 MCH 29.8 MCHC 32.2 RDW 12.0 Plt Count 226 MPV 9.9 Neut % (Auto) 94.1 H Lymph % (Auto) 3.1 L [place] % (Auto) 2.2 Eos % (Auto) 0.0 L Baso % (Auto) 0.1 L Neut # (Auto) 12.3 H Lymph # (Auto) 0.4 L [place] # (Auto) 0.3 Eos # (Auto) 0.0 Baso # (Auto) 0.0 Abs Immat Gran (auto) 0.07 H Imm/Tot Granulo (auto) 0.5 Sodium 131 L Potassium 4.3 Chloride 96 L Carbon Dioxide 26.4 Anion Gap 12.9 BUN 25.0 H Creatinine 0.88 Est GFR ( Amer) >60 Est GFR (Non-Af Amer) >60 BUN/Creatinine Ratio 28.4 Glucose 203 H Calcium 8.6 Total Bilirubin 0.4 AST 27 ALT 41 Alkaline Phosphatase 102 Total Protein 6.2 L Albumin 2.7 L Globulin 3.5 Albumin/Globulin Ratio 0.8 Urine Osmolality POC Glucose 354 H 275 H 10/16/23 10/13/23 15:57 16:20 WBC RBC Hgb Hct MCV MCH MCHC RDW Plt Count MPV Neut % (Auto) Lymph % (Auto) [place] % (Auto) Eos % (Auto) Baso % (Auto) Neut # (Auto) Lymph # (Auto) [place] # (Auto) Eos # (Auto) Baso # (Auto) Abs Immat Gran (auto) Imm/Tot Granulo (auto) Sodium Potassium Chloride Carbon Dioxide Anion Gap BUN Creatinine Est GFR ( Amer) Est GFR (Non-Af Amer) BUN/Creatinine Ratio Glucose Calcium Total Bilirubin AST ALT Alkaline Phosphatase Total Protein Albumin Globulin Albumin/Globulin Ratio Urine Osmolality 245 POC Glucose 316 H Discharge Plan Discharge Disposition: Xfer SNF Condition: Fair Discharge Medications: New sodium chloride 1,000 mg Tablet,Soluble 1,000 mg PO TID Qty: 0 0RF prednisone 50 mg tablet 50 mg PO DAILY 5 Days Qty: 5 0RF Continued donepezil [Aricept] 10 mg tablet 10 mg PO DAILY Rx Instructions: at bedtime per refill hx from 09/11/23 isosorbide mononitrate 60 mg tablet extended release 24 hr 60 mg PO DAILY lisinopril-hydrochlorothiazide 20-25 mg tablet 1 tab PO DAILY lovastatin 40 mg tablet 40 mg PO DAILY metformin 500 mg tablet 500 mg PO DAILY tamsulosin 0.4 mg capsule 0.8 mg PO DAILY aspirin 81 mg tablet,delayed release (DR/EC) 81 mg PO DAILY PreserVision AREDS 4,296 mcg-226 mg-90 mg capsule 2 cap PO DAILY latanoprost 0.005 % drops 1 drp ophthalmic (eye) DAILY omeprazole 40 mg capsule,delayed release(DR/EC) 40 mg PO DAILY acetaminophen [Acetaminophen Extra Strength] 500 mg tablet 500 mg PO Q4H PRN (Reason: pain) zinc 50 mg tablet 50 mg PO DAILY citalopram 10 mg tablet 10 mg PO QAM hydralazine 50 mg tablet 50 mg PO TID oxybutynin chloride 15 mg tablet extended release 24hr 15 mg PO QDAY Rx Instructions: last filled 09/14/23 per refill hx gabapentin 300 mg capsule 300 mg PO BID Qty: 60 2RF Forms: Portal Instructions Follow Up Appointments: @ 1:15pm with Dr. Butler [facility] [address] [place], [place] [phone]
--- NOTE | 2023-10-17 15:46 | CM.NOTE ---
HENS completed online for care home facility.
== END 2023-10-17 16:15 | DRG 641 ==
LOC: ER 15:20 → MS 16:01
PROVIDERS: Physician Assistant; Admitting Provider Internal Medicine; Emergency Provider Emergency Medicine Emergency Medical Services; PCP Family Medicine; Visit Provider Internal Medicine
DX: E87.1 Hypo-osmolality and hyponatremia (principal); I11.0 Hypertensive heart disease with heart failure; I50.32 Chronic diastolic (congestive) heart failure; R29.6 Repeated falls; R53.1 Weakness; M48.062 Spinal stenosis, lumbar region with neurogenic claudication; E11.65 Type 2 diabetes mellitus with hyperglycemia; I25.10 Atherosclerotic heart disease of native coronary artery without angina pectoris; I48.0 Paroxysmal atrial fibrillation; F03.90 Unspecified dementia, unspecified severity, without behavioral disturbance, psychotic disturbance, mood disturbance, and anxiety; Z91.81 History of falling; Z79.84 Long term (current) use of oral hypoglycemic drugs; Z79.82 Long term (current) use of aspirin; Z79.899 Other long term (current) drug therapy; Z95.0 Presence of cardiac pacemaker; Z90.49 Acquired absence of other specified parts of digestive tract; Z96.653 Presence of artificial knee joint, bilateral; Z85.828 Personal history of other malignant neoplasm of skin; Z85.46 Personal history of malignant neoplasm of prostate; Z83.3 Family history of diabetes mellitus; Z82.49 Family history of ischemic heart disease and other diseases of the circulatory system
CPT/HCPCS: 36415; 51702; 71045; 73030; 80048; 80053; 81001; 82570; 82948; 83935; 84300; 84443; 84484; 85025; 87635; 87811; 93005; 94761; 96361; 96372; 96374; 96375; 96376; 97161; 97165; 99285; J0360; J1650; J2930

== ENCOUNTER 2023-11-21 12:34 | Outpatient (OUT) | payer MEDICARE, OTHER, SELFPAY ==
--- NOTE | 2023-11-21 | CONS_ITS ---
CONSULTATION DATE: 11/21/2023 TO: Ramon Ortiz M.D. HISTORY: Patient returns today complaining of pain in his lower back, as well as his right lower extremity, with progressive weakness in his right lower extremity. He rates the pain as being 5-7/10, sharp in character, with a deep aching component, increased with activities such as standing, walking and performing transitioning maneuvers. He reports that he is only able to walk with the use of a walker and with that, even short distances, and he reports he develops a significant amount of pain in his right lower extremity when ambulating, even for several feet. He does some have some improvement with resting, with improvement in his strength, but he reports that the pain has been quite progressive and alters his quality of life, level of functioning and, at times, his sleep pattern. Also, of note, he had the complaint of progressive left shoulder pain because of progressive use of his walker. MEDICATION: He is unable to tolerate medication secondary to side effects. He currently is on gabapentin 300 mg b.i.d. with a moderate amount of relief. He also reports that Tylenol is only moderately effective. EXAM: His examination is notable for patient having hypoesthesia along the right L4 dermatome with his right anterior tibialis and quadriceps, depressed patellar reflex. Straight leg raise is equivocal, positive and decreased. He had no signs consistent with myelopathy. The weakness on the right, involving his quadriceps and anterior tibialis was 3/5 strength. Examination of left shoulder revealed the patient to have pain with left shoulder flexion, internal rotation, adduction. He also had a positive left sided empty can sign and pain with left shoulder abduction. IMPRESSION: 1. Our impression is patient with chronic pain secondary to neurogenic claudication with spinal stenosis. 2. Our impression is patient appears to have possible rotator cuff strain or tear with tendonitis, possibly involving the bicipital tendon and possibly the pectoralis major tendon. RECOMMENDATIONS: I have recommended considering L4-5 lumbar epidural steroid injection under fluoroscopic guidance. Continue with current physical therapy. I have recommended physical therapy to address his left shoulder pain as well. As part of providing excellent, safe, comprehensive care, the following was completed at our patient's visit: 1. A medication reconciliation and review to ensure accurate knowledge of current/active medications, including asking our patients to inform us about any [id number] medications or herbal remedies/nutritional supplements/alternative remedies. 2. A review to specifically ensure our patients have had annual screening for: elevated body mass index (BMI, see intake chart for exact total), tobacco use, screening for depression, and screening for unhealthy alcohol use. When screening is concerning, patients are provided with education and the specific recommendation to discuss the concerning health issue and treatment options with their primary care provider. LISA
--- OUTSIDE RECORDS SUMMARY | 2023-11-21 12:41 | XMS_ITS | CCD ---
Author Name Unknown Address [address] [place] [address] Organization [facility] Care Team Providers Care Demo Specialist Name Role Phone PHYSICIAN, DEFAULT Unavailable Unavailable PHYSICIAN, DEFAULT Unavailable Unavailable SNEHA, DEEP Unavailable Unavailable PHYSICIAN, DEFAULT Unavailable Unavailable PHYSICIAN, DEFAULT Unavailable Unavailable SNEHA, DEEP Unavailable Unavailable UNKNOWN, PROVIDER Unavailable Unavailable UNKNOWN, PROVIDER Unavailable Unavailable SNEHA, DEEP Unavailable Unavailable RAMON MARTINES Unavailable Unavailable ISAI Campo Attending Provider Sanaz Campo Unavailable DO Jose Eduardo Murray Attending Provider [phone] MD Ramon Martines Primary Care Provider [phone] BOBBI, DR RAMON Chen Primary Care Unavailable NADEREElsie, DR RAMON Chen Consulting Unavailable NADEREElsie, DR RAMON Chen Attending Unavailable NADEREElsie, DR RAMON Chen Admitting Unavailable NADEREElsie, DR RAMON Chen Primary Care Unavailable NADEREElsie, DR RAMON Chen Consulting Unavailable CHANOEREElsie, DR RAMON Chen Attending Unavailable NADEREElsie, DR RAMON Chen Admitting Unavailable MISC, DR [...] Primary Care Unavailable Ramon Martines Attending Unavailable ЕЛЕНА LOU Attending Unavailable ЕЛЕНА LOU Attending Unavailable MIKE HILARIO Attending Unavailable JOAQUÍN NELSON Attending Unavailable JOAQUÍN NELSON Attending Unavailable SARAH WILSON Attending Unavailable MIKE HILARIO Admitting Unavailable MIKE HILARIO Attending Unavailable MIKE HILARIO Referring Unavailable Deven SALES Attending Unavailable Deven SALES Attending Unavailable Allergies Allergy Classification Reported Allergen(s) Allergy Type Date of Onset Reaction(s) Facility (1 source) 34970,00 Drug allergy (disorder) 11-15-2010 [facility] Repository Medications Current Medications Medication Drug Class(es) [...] disease (6 sources) Atherosclerotic heart disease of [place] coronary artery with unstable angina pectoris; Translations: [Atherosclerotic heart disease of [place] coronary artery without angina pectoris] Onset: 05-29-2018 [...] Onset: 05-29-2018 Chronic Other aftercare (1 source) MCC (current) use of antithrombotics/antip latelets; Translations: [[facility] (CURRENT) USE OF ANTITHROMBOTICS/ANTIP LATELETS] Onset: 05-29-2018 Episodic Other aftercare (2 sources) 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; Translations: [[facility] (CURRENT) USE OF ASPIRIN] Onset: 05-29-2018 Episodic Other aftercare (1 source) Other halfway (current) drug therapy; Translations: [OTH [facility] CURRENT DRUG THERAPY] Onset: 12-28-2022 Episodic Other aftercare (1 source) MCC (current) use of oral hypoglycemic drugs; Translations: [PREPLEATER USE ORAL HYPOGLYCEMIC DX] Onset: 12-28-2022 Episodic [...] / UNK(Unknown) Onset: 05-29-2018 Unclassified (1 source) MCC (current) use of oral hypoglycemic drugs; Translations: [PREPLEATER (CURRENT) USE OF ORAL HYPOGLYCEMIC DRUGS] Onset: [...] Test Name Value Interpretation Reference Range Facility [facility] 10-18-2023 Lab Reports [id number]#1.00TIFF Normal [facility] Report[facility] 10-17-2023 Lab Reports [id number]#1.00TIFF [facility] Lab Reports [id number]#1.00TIFF [facility] Lab Reports [id number]#1.00TIFF [facility] Lab Reports [id number]#1.00TIFF [facility] Lab Reports [id number]#1.00TIFF Normal [facility] Lab Reports [id number]#1.00TIFF Normal [facility] Lab Reports [id number]#1.00TIFF Normal [facility] Lab Reports [id number]#1.00TIFF Normal [facility] Lab Reports [id number]#1.00TIFF [facility] Office Visiton 10-11-2023 Follow-up visit [id number] HavenEdwin Elsie 1935 M Date Provider Department Center 10/11/2023 ЕЛЕНА SALMON [facility] No family history on file Level of Service:45496 [place] POSTOP FOLLOW UP VISIT RELATED TO ORIGINAL PX Normal [facility] HPon 10-02-2023 [facility] Electrophysiology Note Reason for visit: bradycardia HPI: [...] discontinued due to having ER visit with [facility] for complaints of dizziness and was [...] ECG 05/04/2018: Atrial fibrillation, possible old septal CO. ECG 05/28/2018 showed sinus rhythm with 1st degree AV block and PAC. Possible anteroseptal CO. ECG today 03/21/2019: sinus rhythm with 1st [...] alcohol abuse, Hematolog (more content not included)... [facility] NURSNOTEon 10-02-2023 NURSNOTE RN educated pt on d/ c instructions. RN encouraged pt to voice any questions or concerns. Pt verbalizes no questions or concerns at this time. Pt was wheeled off of unit with all of belongings. [facility] NURSNOTE CHG wipes and betadi ne nasal swabs completed. [facility] Orders Onlyon 10-02-2023 Orders Only [id number] Edwin Orourke 1935 M Date Provider Department Center 10/02/2023 EM[facility]ERIO G[facility] No family history on file Normal [facility] Orders Onlyon 09-25-2023 Orders Only [id number] Edwin Orourke 1935 M Date Provider Department Center 09/25/2023 MEETERIO GONZALEZ [facility] No family history on file Normal [facility] Telemedicineon 08-22-2023 Telemedicine [id number] Edwin Orourke 1935 M Date Provider Department Center 08/22/2023 Jose Juan-MIKE HILARIO CARD [facility] No family history on file Level of Service:15647 [place] PHYS/QHP TELEPHONE EVALUATION 11-20 MIN Normal [facility] 36on 07-27-2023 36 No vm Normal [facility] Office Visiton 04-26-2023 Follow-up visit [id number] Edwin Orourke 1935 M Date Provider Department Center 04/26/2023 JOAQUÍN LERMA CARD [facility] No family history on file Level of Service:17623 [place] OFFICE/OUTPATIENT ESTABLISHED MOD MDM 30-39 MIN Reason for Visit and Comments: Follow-up [102531] - 2 month follow up Normal [facility] MR lumbar spine wo conon MR lumbar spine wo con [facility] [place] [address] MRI Report Signed Patient: Edwin Orourke MR#: [id number] : 1935 Acct:[id number] Age/Sex: 88 / M ADM Date: 03/24/23 Loc: MR Room: Type: [facility] Attending Dr: Ramon Martines MD Copies to: [...] Mamta Barrios M.D.03/25/2023 2:26 PM Dictation Location: [place] [address] Transcribed By: [facility] 03/25/23 142 Dictated By: Mamta Barrios II, MD 03/25/23 1419 Signed By: 03/25/23 1426 [facility] Orders Onlyon 03-15-2023 Orders Only [id number] Edwin Orourke 1935 [facility] [place] 03/15/2023 YURY RANGEL [facility] No family history on file [facility] Office Visiton 03-14-2023 Follow-up visit [id number] Edwin Orourke 1935 [facility] [place] 03/14/2023 JOAQUÍN LERMA [facility] No family history on file Level of Service:61653 [place] OFFICE/OUTPATIENT ESTABLISHED MOD MDM 30-39 MIN Normal [facility] PROF CHEM 8 (BAS METB)on Anion gap [Moles/Vol] 10.7 mmol/L Normal [facility] Comment on above: Performed By: #### TSH #### [facility] [address] [place] [address] [address] Yue Vega Calcium [Mass/Vol] 9.4 mg/dL Normal 8.5-10.1 [facility] Comment on above: Performed By: #### TSH #### [facility] [address] [place] [address] [address] Yue Vega Chloride [Moles/Vol] 97 mmol/L Critically low 98-107 [facility] Comment on above: Performed By: #### TSH #### [facility] [address] [place] [address] [address] Yue Vega CO2 [Moles/Vol] 31.8 mmol/L Normal 21.0-32.0 [facility] Comment on above: Performed By: #### TSH #### [facility] [address] [address] [address] Yue Vega Creatinine [Mass/Vol] 1.23 mg/dL Normal 0.70-1.30 [facility] Comment on above: Performed By: #### TSH #### [facility] [address] [place] [address] [address] Yue Vega EGFR-AF INDONESIAN >60 Normal >=60 [facility] Comment on above: Performed By: #### TSH #### [facility] [address] [place] [address] [address] Yue Vega EGFR-NON AF INDONESIAN 56 mL/min/1.73m2 Critically low >=60 [facility] Comment on above: Performed By: #### TSH #### [facility] [address] [address] [address] Yue Vega Glucose [Mass/Vol] 153 mg/dL Critically high 74-106 [facility] Comment on above: Performed By: #### TSH #### [facility] [address] [address] [address] Yue Vega Potassium [Moles/Vol] 4.5 mmol/L Normal 3.5-5.1 [facility] Comment on above: Performed By: #### TSH #### [facility] [address] [address] [address] Yue Vega Sodium [Moles/Vol] 135 mmol/L Critically low 136-145 [facility] Comment on above: Performed By: #### TSH #### [facility] [address] [place] [address] [address] Yue Vega Urea nitrogen [Mass/Vol] 22.0 mg/dL Critically high 7.0-18.0 [facility] Comment on above: Performed By: #### TSH #### [facility] [address] [place] [address] Dr. Yue Vega Urea nitrogen/Creatin ine [Mass ratio] 17.9 mg/mg Normal [facility] Comment on above: Performed By: #### TSH #### [facility] [address] [place] [address] [address] Yue Vega Office Visiton 02-15-2023 Follow-up visit [id number] Edwin Orourke 1935 M Date Provider Department Center 02/15/2023 SARAH [facility]ECKER [facility] Neftali [facility] No family history on file Level of Service:50627 [place] OFFICE/OUTPATIENT ESTABLISHED MOD MDM 30-39 MIN Normal [facility] Creatinine (Bld) [Mass/Vol]O rdered By: Suzi Murray on 01-06-2023 Creatinine [Mass/Vol] 1.2 mg/dL 0.6-1.3 [facility] Comment on above: ER/ESD physician is notified/shown all I STAT results.Critical values may be confirmed by laboratory testing ifdeemed necessary by ER attending doctor. MR head/brain wo/w conon MR head/brain wo/w con [facility] [place] [address] MRI Report Signed Patient: Edwin Orourke MR#: [id number] : 1935 Acct:[id number] Age/Sex: 87 / M ADM Date: 01/06/23 Loc: Room: Type: [facility] Attending Dr: Jose Eduardo Murray DO Copies [...] Mamta Barrios M.D.01/06/2023 5:26 PM Dictation Location: [place] [address] Transcribed By: [facility] 01/06/23 172 Dictated By: Mamta Barrios II, MD 01/06/231719 Signed By: 01/06/23 172 [facility] Office Visiton 12-28-2022 Follow-up visit [id number] Edwin Orourke 1935 [facility] Provider Department Center 12/28/2022 ЕЛЕНА SALMON [facility] No family history on file Level of Service:02755 [place] OFFICE/OUTPATIENT ESTABLISHED MOD [facility] 30-39 MIN Reason for Visit and Comments: Dizziness [195362] Fatigue [46] Normal [facility] BNPon 12-26-2022 Natriuretic peptide B (Bld) [Mass/Vol] 483.0 pg/mL Normal <=1,800.0 [facility] Comment on above: Performed By: #### TSH #### [facility] [address] [place] [address] Dr. Yue Vega CARDIAC MAMTA ADMITon 023 CK [Catalytic activity/Vol] 121 U/L Normal 39-308 [facility] Comment on above: Performed By: #### TSH #### [facility] [address] [place] [address] Dr. Yue Vega CK.MB [Mass/Vol] 1.73 ng/mL Normal <=3.60 [facility] Comment on above: Performed By: #### TSH #### [facility] [address] [place] [address] Dr. Yue Vega HSTROP 11.9 pg/mL Normal 4.0-76.1 [facility] Comment on above: Result Comment: CUT-OFF POINTS HAVE BEEN ESTABLISHED BASED ON THE FOURTH UNIVERSAL DEFINITIONS OF MYOCARDIAL INFARCTION. THE UPPER REFERENCE LIMIT (URL) OF TROPONIN, DEFINED THE 99TH PERCENTILE OF cTnI DISTRIBUTION IN A REFERENCE POPULATION, HAS BEEN CONFIRMED THE DECISION THRESHOLD FOR CO DIAGNOSIS. Performed By: #### T SH #### [facility] [address] [place] [address] Dr. Yue Vega CARI 113 ng/mL Critically high 16-96 [facility] Comment on above: Performed By: #### TSH #### [facility] [address] [place] [address] Dr. Yue Vega CBC AUTO DIFFon 12-26-2022 BASO # 0.1 103/ul Normal 0.0-0.1 [facility] Comment on above: Performed By: #### TSH #### [facility] [address] [place] [address] Dr. Yue Vega Basophils/100 WBC (Bld) 0.5 % Normal 0.2-2.0 [facility] Comment on above: Performed By: #### TSH #### [facility] [address] [place] [address] Dr. Yue Vega EO # 0.0 103/ul Normal 0.0-0.7 [facility] Comment on above: Performed By: #### TSH #### [facility] [address] [place] [address] Dr. Yue Vega Eosinophils/100 WBC (Bld) 0.3 % Critically low 0.9-7.0 [facility] Comment on above: Performed By: #### TSH #### [facility] [address] [place] [address] Dr. Yue Vega Erythrocyte distribution width (RBC) [Ratio] 12.4 % Normal 11.0-15.0 [facility] Comment on above: Performed By: #### TSH #### [facility] [address] [place] [address] Dr. Yue Vega Hematocrit (Bld) [Volume fraction] 42.7 % Normal 42.0-54.0 [facility] Comment on above: Performed By: #### TSH #### [facility] [address] [place] [address] Dr. Yue Vega Hemoglobin (Bld) [Mass/Vol] 14.5 g/dL Normal 14.0-18.0 [facility] Comment on above: Performed By: #### TSH #### [facility] [address] [place] [address] Dr. Yue Vega IG # 0.05 10e3/ul Critically high 0.00-0.03 [facility] Comment on above: Performed By: #### TSH #### [facility] [address] [place] [address] Dr. Yue Vega IG % 0.4 % Normal 0.0-0.5 [facility] Comment on above: Performed By: #### TSH #### [facility] [address] [place] [address] Dr. Yue Vega LYMPH # 1.4 103/ul Normal 1.2-3.8 [facility] Comment on above: Performed By: #### TSH #### [facility] [address] [place] [address] Dr. Yue Vega Lymphocytes/100 WBC (Bld) 10.7 % Critically low 20.5-60.0 [facility] Comment on above: Performed By: #### TSH #### [facility] [address] [place] [address] Dr. Yue Vega MANUAL DIFF REQ NO Normal [facility] Comment on above: Performed By: #### TSH #### [facility] [address] [place] [address] Dr. Yue Vega MCH (RBC) [Entitic mass] 30.7 pg Normal 25.9-34.0 [facility] Comment on above: Performed By: #### TSH #### [facility] [address] [place] [address] [address] Yue Vega MCHC (RBC) [Mass/Vol] 34.0 g/dL Normal 29.9-35.2 [facility] Comment on above: Performed By: #### TSH #### [facility] [address] [address] [address] Yue Vega MCV (RBC) [Entitic vol] 90.3 fL Normal 80.0-94.0 [facility] Comment on above: Performed By: #### TSH #### [facility] [address] [address] [address] Yue Vega MONO # 0.5 103/ul Normal 0.3-0.8 [facility] Comment on above: Performed By: #### TSH #### [facility] [address] [place] [address] Dr. Yue Vega Monocytes/100 WBC (Bld) 4.2 % Normal 1.7-12.0 [facility] Comment on above: Performed By: #### TSH #### [facility] [address] [address] [address] Yue Vega NEUT # 10.8 103/ul Critically high 1.4-6.5 [facility] Comment on above: Performed By: #### TSH #### [facility] [address] [place] [address] Dr. Yue Vega Neutrophils/100 WBC (Bld) 83.9 % Critically high 43.0-75.0 [facility] Comment on above: Performed By: #### TSH #### [facility] [address] [address] [address] Yue Vega Platelet mean volume (Bld) [Entitic vol] 9.6 fL Normal 9.5-13.5 [facility] Comment on above: Performed By: #### TSH #### [facility] [address] [address] [address] Yue Vega PLT 223 103/ul Normal 150-450 [facility] Comment on above: Performed By: #### TSH #### [facility] [address] [address] [address] Yue Vega RBC 4.73 106/ul Normal 4.70-6.10 [facility] Comment on above: Performed By: #### TSH #### [facility] [address] [address] [address] Yue Vega WBC 12.9 103/ul Critically high 4.0-11.0 [facility] Comment on above: Performed By: #### TSH #### [facility] [address] [address] HEAD WO CONon [...] SUZI NANCE Date: 2022-12-26 14:21 Normal [facility] ER URINE PROFILEon 3 Bilirubin Ql (U) Negative Normal NEGATIVE [facility] Comment on above: Performed By: #### SERG LOBORO #### [facility] [address] [address] [address] Yue Vega Clarity (U) CLEAR Normal CLEAR [facility] Comment on above: Performed By: #### SERG LOBORO #### [facility] [address] [address] [address] Yue Vega Color (U) LT. YELLOW Normal YELLOW [facility] Comment on above: Performed By: #### SERG LOBORO #### [facility] [address] [address] [address] Yue ALCOCER A micrscopic examina tion will be performed if indicated. Normal [facility] Comment on above: Performed By: #### SERG LOBORO #### [facility] [address] [address] [address] uYe Vega Glucose Ql (U) 250 mg/dl Abnormal NEGATIVE [facility] Comment on above: Performed By: #### YAMIL UMMELVINRO #### [facility] [address] [place] [address] Dr. Yue Vega Hemoglobin Ql (U) Negative Normal NEGATIVE [facility] Comment on above: Performed By: #### SERG LOBORO #### [facility] [address] [place] [address] Dr. Yue Vega Ketones Ql (U) Negative Normal NEGATIVE [facility] Comment on above: Performed By: #### YAMIL UMMELVINRO #### [facility] [address] [place] [address] Dr. Yue Vega LEUKOCYTES Negative Normal NEGATIVE [facility] Comment on above: Performed By: #### SERG LOBORO #### [facility] [address] [address] [address] Yue Vega Nitrite Ql (U) Negative Normal NEGATIVE [facility] Comment on above: Performed By: #### YAMIL UMICRO #### [facility] [address] [address] [address] Yue Vega pH (U) 7.0 [pH] Normal 5-9 [facility] Comment on above: Performed By: #### YAMIL UMICRO #### [facility] [address] [address] [address] Yue Vega Protein (U) [Mass/Vol] 30 mg/dL Abnormal NEGATIVE/ TRACE [facility] Comment on above: Performed By: #### ERUR UMICRO #### [facility] [address] [place] [address] Dr. Yue Vega SPEC GRAVITY 1.015 Normal 1.005-<=1. 025 [facility] Comment on above: Performed By: #### ERUR UMICRO #### [facility] [address] [place] [address] Dr. Yue Vega UR MICRO IND INDICATED Normal [facility] Comment on above: Performed By: #### ERUR UMICRO #### [facility] [address] [place] [address] Dr. Yue Vega Urobilinogen Qn (U) 0.2 {Anat'U}/dL Normal 0.2 - 1.0 [facility] Comment on above: Performed By: #### SERG LOBORO #### [facility] [address] [place] [address] Dr. Yue Vega PROF 14(COMP METB)on 023 Albumin [Mass/Vol] 4.1 g/dL Normal 3.4-5.0 [facility] Comment on above: Performed By: #### TSH #### [facility] [address] [place] [address] Dr. Yue Vega Albumin/Globulin [Mass ratio] 1.1 {ratio} Normal [facility] Comment on above: Performed By: #### TSH #### [facility] [address] [place] [address] Dr. Yue Vega ALP [Catalytic activity/Vol] 110 U/L Normal 46-116 [facility] Comment on above: Performed By: #### TSH #### [facility] [address] [place] [address] Dr. Yue Vega ALT [Catalytic activity/Vol] 24 U/L Normal 16-63 [facility] Comment on above: Performed By: #### TSH #### [facility] [address] [place] [address] Dr. Yue Vega Anion gap [Moles/Vol] 9.5 mmol/L Normal [facility] Comment on above: Performed By: #### TSH #### [facility] [address] [address] [address] Yue Vega AST [Catalytic activity/Vol] 25 U/L Normal 15-37 [facility] Comment on above: Performed By: #### TSH #### [facility] [address] [address] [address] Yue Vega Bilirubin [Mass/Vol] 1.2 mg/dL Critically high 0.2-1.0 [facility] Comment on above: Performed By: #### TSH #### [facility] [address] [address] [address] Yue Vega Calcium [Mass/Vol] 9.3 mg/dL Normal 8.5-10.1 [facility] Comment on above: Performed By: #### TSH #### [facility] [address] [address] [address] Yue Vega Chloride [Moles/Vol] 96 mmol/L Critically low 98-107 [facility] Comment on above: Performed By: #### TSH #### [facility] [address] [address] [address] Yue Vega CO2 [Moles/Vol] 29.4 mmol/L Normal 21.0-32.0 [facility] Comment on above: Performed By: #### TSH #### [facility] [address] [address] [address] Yue Vega Creatinine [Mass/Vol] 1.09 mg/dL Normal 0.70-1.30 [facility] Comment on above: Performed By: #### TSH #### [facility] [address] [address] [address] Yue Vega EGFR-AF INDONESIAN >60 Normal >=60 [facility] Comment on above: Performed By: #### TSH #### [facility] [address] [address] [address] Yue Vega EGFR-NON AF INDONESIAN >60 Normal >=60 [facility] Comment on above: Performed By: #### TSH #### [facility] [address] [address] Dr. Yue Vega Globulin (S) [Mass/Vol] 3.8 g/dL Normal [facility] Comment on above: Performed By: #### TSH #### [facility] [address] [address] [address] Yue Vega Glucose [Mass/Vol] 218 mg/dL Critically high 74-106 [facility] Comment on above: Performed By: #### TSH #### [facility] [address] [address] [address] Yue Vega Potassium [Moles/Vol] 3.9 mmol/L Normal 3.5-5.1 [facility] Comment on above: Performed By: #### TSH #### [facility] [address] [address] [address] Yue Vega Protein [Mass/Vol] 7.9 g/dL Normal 6.4-8.2 [facility] Comment on above: Performed By: #### TSH #### [facility] [address] [address] [address] Yue Vega Sodium [Moles/Vol] 131 mmol/L Critically low 136-145 [facility] Comment on above: Performed By: #### TSH #### [facility] [address] [address] [address] Yue Vega Urea nitrogen [Mass/Vol] 19.0 mg/dL Critically high 7.0-18.0 [facility] Comment on above: Performed By: #### TSH #### [facility] [address] [address] [address] Yue Vega Urea nitrogen/Creatin ine [Mass ratio] 17.4 mg/mg Normal [facility] Comment on above: Performed By: #### TSH #### [facility] [address] [address] [address] Yue Vega PROTIMEon 12-26-2022 INR Coag (PPP) [Relative time] 1.00 {INR} Normal [facility] Comment on above: Performed By: #### PTT, PT #### [facility] [address] [address] [address] Yue Vega INR GUIDELINES SEE BELOW Normal [facility] Comment on above: Result Comment: DESIRED INR: 2.0 - 3.0 C ONDITIONS NOT LISTED BELOW 2.5 - 3.5 FOR PROSTHETIC HEART VALVE REPLACEMENT 2.5 - 3.5 RECURRENT THROMBOSIS Performed By: #### P TT, PT #### [facility] [address] [place] [address] Dr. Yue Vega PT Coag (PPP) [Time] 10.6 s Normal 9.0-11.6 [facility] Comment on above: Performed By: #### PTT, PT #### [facility] [address] [place] [address] Dr. Yue Vega PTTon 12-26-2022 aPTT Coag (Bld) [Time] 29.8 s Normal 22.3-36.2 [facility] Comment on above: Performed By: #### PTT, PT #### [facility] [address] [place] [address] Dr. Yue Vega TSHon 12-26-2022 TSH 2.693 uIU/mL Normal 0.358-3.74 0 [facility] Comment on above: Performed By: #### TSH #### [facility] [address] [place] [address] Dr. Yue Vega URINE MICROSCOPIC ONLYon BACTERIA NONE SEEN Normal NONE SEEN [facility] Comment on above: Performed By: #### YAMIL UMICRO #### [facility] [address] [place] [address] Dr. Yue Vega Bacteria identified Cx Nom (U) NOT INDICATED Normal [facility] Comment on above: Performed By: #### ERUR UMICRO #### [facility] [address] [place] [address] Dr. Yue Vega CAST NONE SEEN Normal NONE SEEN [facility] Comment on above: Performed By: #### ERUR UMICRO #### [facility] [address] [place] [address] Dr. Yue Vega Crystals LM Nom (Urine sed) NONE SEEN Normal NONE SEEN [facility] Comment on above: Performed By: #### YAMIL UMICRO #### [facility] [address] [address] [address] Yue Vega Epithelial cells LM Ql (Urine sed) NONE SEEN Normal NONE SEEN /RARE [facility] Comment on above: Performed By: #### OCTAVIOR UMICRO #### [facility] [address] [address] [address] Yue Vega MUCOUS NONE SEEN Normal NONE SEEN [facility] Comment on above: Performed By: #### YAMIL UMICRO #### [facility] [address] [address] [address] Yue Vega RBC 0-2 Normal 0-2 [facility] Comment on above: Performed By: #### YAMIL UMICRO #### [facility] [address] [place] [address] Dr. Yue Vega WBC NONE SEEN Normal NONE SEEN [facility] Comment on above: Performed By: #### YAMIL UMICRO #### [facility] [address] [place] [address] Dr. Yue Vega XR CHEST 1 Von [...] SAYRA GUILLAUME Date: 2022-12-26 13:12 Normal [facility] METHYLMALONIC ACID (MMA)on 0 12-25-2022 Methylmalonic Acid, Serum 180 nmol/L Normal 0-378 [facility] Comment on above: Performed By: #### MMA2 #### [facility] [address] [place] [address] Dr. Yue Vega TSHon 12-21-2022 TSH 2.790 uIU/mL Normal 0.358-3.74 0 [facility] Comment on above: Performed By: #### TSH #### [facility] [address] [place] [address] Dr. Yue Vega VITAMIN B12on 12-21-2022 Cobalamin (Vitamin B12) [Mass/Vol] 919.0 pg/mL Normal 193.0-986. 0 [facility] Comment on above: Performed By: #### TSH #### [facility] [address] [place] [address] Dr. Yue Vega CBC AUTO DIFFon 09-26-2022 BASO # 0.1 103/ul Normal 0.0-0.1 [facility] Comment on above: Performed By: #### CBC #### [facility] [address] [place] [address] Dr. Yue Vega Basophils/100 WBC (Bld) 0.5 % Normal 0.2-2.0 [facility] Comment on above: Performed By: #### CBC #### [facility] [address] [place] [address] Dr. Yue Vega EO # 0.2 103/ul Normal 0.0-0.7 [facility] Comment on above: Performed By: #### CBC #### [facility] [address] [place] [address] Dr. Yue Vega Eosinophils/100 WBC (Bld) 2.1 % Normal 0.9-7.0 [facility] Comment on above: Performed By: #### CBC #### [facility] [address] [place] [address] Dr. Yue Vega Erythrocyte distribution width (RBC) [Ratio] 12.3 % Normal 11.0-15.0 [facility] Comment on above: Performed By: #### CBC #### [facility] [address] [place] [address] Dr. Yue Vega Hematocrit (Bld) [Volume fraction] 42.0 % Normal 42.0-54.0 [facility] Comment on above: Performed By: #### CBC #### [facility] [address] [place] [address] Dr. Yue Vega Hemoglobin (Bld) [Mass/Vol] 13.9 g/dL Critically low 14.0-18.0 [facility] Comment on above: Performed By: #### CBC #### [facility] [address] [place] [address] Dr. Yue Vega IG # 0.03 10e3/ul Normal 0.00-0.03 [facility] Comment on above: Performed By: #### CBC #### [facility] [address] [place] [address] Dr. Yue Vega IG % 0.3 % Normal 0.0-0.5 [facility] Comment on above: Performed By: #### CBC #### [facility] [address] [place] [address] Dr. Yue Vega LYMPH # 1.9 103/ul Normal 1.2-3.8 [facility] Comment on above: Performed By: #### CBC #### [facility] [address] [place] [address] Dr. Yue Vega Lymphocytes/100 WBC (Bld) 19.8 % Critically low 20.5-60.0 [facility] Comment on above: Performed By: #### CBC #### [facility] [address] [place] [address] Dr. Yue Vega MANUAL DIFF REQ NO Normal [facility] Comment on above: Performed By: #### CBC #### [facility] [address] [place] [address] Dr. Yue Vega MCH (RBC) [Entitic mass] 30.5 pg Normal 25.9-34.0 [facility] Comment on above: Performed By: #### CBC #### [facility] [address] [place] [address] Dr. Yue Vega MCHC (RBC) [Mass/Vol] 33.1 g/dL Normal 29.9-35.2 [facility] Comment on above: Performed By: #### CBC #### [facility] [address] [address] [address] Yue Vega MCV (RBC) [Entitic vol] 92.3 fL Normal 80.0-94.0 [facility] Comment on above: Performed By: #### CBC #### [facility] [address] [address] [address] Yue Vega MONO # 0.9 103/ul Critically high 0.3-0.8 [facility] Comment on above: Performed By: #### CBC #### [facility] [address] [place] [address] Dr. Yue Vega Monocytes/100 WBC (Bld) 9.5 % Normal 1.7-12.0 [facility] Comment on above: Performed By: #### CBC #### [facility] [address] [address] [address] Yue Vega NEUT # 6.4 103/ul Normal 1.4-6.5 [facility] Comment on above: Performed By: #### CBC #### [facility] [address] [place] [address] Dr. Yue Vega Neutrophils/100 WBC (Bld) 67.8 % Normal 43.0-75.0 [facility] Comment on above: Performed By: #### CBC #### [facility] [address] [address] [address] Yue Vega Platelet mean volume (Bld) [Entitic vol] 9.4 fL Critically low 9.5-13.5 [facility] Comment on above: Performed By: #### CBC #### [facility] [address] [place] [address] Dr. Yue Vega PLT 264 103/ul Normal 150-450 [facility] Comment on above: Performed By: #### CBC #### [facility] [address] [address] [address] Yue Vega RBC 4.55 106/ul Critically low 4.70-6.10 [facility] Comment on above: Performed By: #### CBC #### [facility] [address] [address] [address] Yue Vega WBC 9.4 103/ul Normal 4.0-11.0 [facility] Comment on above: Performed By: #### CBC #### [facility] [address] [place] [address] Dr. Yue Vega GLYCOHEMOGLOBIN A1Con 2021 ADA RECOMMENDATION SEE BELOW Normal [facility] Comment on above: Result Comment: ADA RECOMMENDED LIMIT 4. 0 - 6.0 ADA THERAPEUTIC TARGET < 7.0 ACTION SUGGESTED > 7.0 Performed By: #### A 1C #### [facility] [address] [place] [address] Dr. Yue Vega Glucose [Mass/Vol] 169 mg/dL Normal [facility] Comment on above: Performed By: #### A1C #### [facility] [address] [place] [address] Dr. Yue Vega HbA1c (Bld) [Mass fraction] 7.5 % Critically high 4.5-6.2 [facility] Comment on above: Performed By: #### A1C #### [facility] [address] [place] [address] Dr. Yue Vega LIPID PROFILEon 09-26-2022 CHOL-HDL RATIO NORM SEE BELOW Normal [facility] Comment on above: Result Comment: 3.3 - 4.4 LOW RISK 4.4 - 7.1 AVERAGE RISK 7.1 - 11.0 MODERATE RISK >11.0 HIGH RISK Performed By: #### T SH #### [facility] [address] [place] [address] Dr. Yue Vega Cholesterol [Mass/Vol] 134 mg/dL Normal <=200 [facility] Comment on above: Performed By: #### TSH #### [facility] [address] [place] [address] Dr. Yue Vega Cholesterol in HDL [Mass/Vol] 51 mg/dL Normal 40-60 [facility] Comment on above: Performed By: #### TSH #### [facility] [address] [address] [address] Yue Vega Cholesterol in LDL [Mass/Vol] 63.4 mg/dL Normal [facility] Comment on above: Performed By: #### TSH #### [facility] [address] [address] [address] Yue Vega Cholesterol.tota l/Cholesterol in HDL [Mass ratio] 2.6 {ratio} Normal [facility] Comment on above: Performed By: #### TSH #### [facility] [address] [address] [address] Yue Vega HDL NORMAL > or = 60 mg/dl - LO W CARDIOVASCULAR RISK <40 mg/dl - HIGH CARDIOVASCULAR RISK Normal [facility] Comment on above: Performed By: #### TSH #### [facility] [address] [address] [address] Yue Vega LDL CALC NORMAL SEE BELOW Normal [facility] Comment on above: Result Comment: <100 mg/dl OPTIMAL 100 - 129 mg/dl NEAR OR ABOVE OPTIMAL 130 - 159 mg/dl BORDERLINE HIGH 160 - 189 mg/dl HIGH >190 mg/dl VERY HIGH Performed By: #### T SH #### [facility] [address] [address] [address] Yue Vega Triglyceride [Mass/Vol] 98 mg/dL Normal <=150 [facility] Comment on above: Performed By: #### TSH #### [facility] [address] [address] [address] Yue Vega VLDL CALC 19.6 mg/dL Normal [facility] Comment on above: Performed By: #### TSH #### [facility] [address] [address] [address] Yue Vega LIVER PROFILEon 09-26-2022 Albumin [Mass/Vol] 3.8 g/dL Normal 3.4-5.0 [facility] Comment on above: Performed By: #### LIPID, BMP, LIVER ### # [facility] [address] [address] [address] Yue Vega Albumin/Globulin [Mass ratio] 0.9 {ratio} Normal [facility] Comment on above: Performed By: #### LIPID, BMP, LIVER ### # [facility] [address] [address] [address] Yue Vega ALP [Catalytic activity/Vol] 94 U/L Normal 46-116 [facility] Comment on above: Performed By: #### LIPID, BMP, LIVER ### # [facility] [address] [address] [address] Yue Vega ALT [Catalytic activity/Vol] 34 U/L Normal 16-63 [facility] Comment on above: Performed By: #### LIPID, BMP, LIVER ### # [facility] [address] [address] [address] Yue Vega AST [Catalytic activity/Vol] 30 U/L Normal 15-37 [facility] Comment on above: Performed By: #### LIPID, BMP, LIVER ### # [facility] [address] [place] [address] Dr. Yue Vega BILI, CONJUGATED 0.2 mg/dL Normal 0.0-0.2 [facility] Comment on above: Performed By: #### LIPID, BMP, LIVER ### # [facility] [address] [address] [address] Yue Vega Bilirubin [Mass/Vol] 0.9 mg/dL Normal 0.2-1.0 [facility] Comment on above: Performed By: #### LIPID, BMP, LIVER ### # [facility] [address] [address] [address] Yue Vega Globulin (S) [Mass/Vol] 4.2 g/dL Normal [facility] Comment on above: Performed By: #### LIPID, BMP, LIVER ### # [facility] [address] [address] [address] Yue Vega Protein [Mass/Vol] 8.0 g/dL Normal 6.4-8.2 [facility] Comment on above: Performed By: #### LIPID, BMP, LIVER ### # [facility] [address] [address] [address] Yue Vega MICROALBUMIN, RAND URon 12- mALB 16.8 mg/L Normal <=30.0 [facility] Comment on above: Performed By: #### ERURDEEJAY #### [facility] [address] [address] [address] Yue Vega PROF CHEM 8 (BAS METB)on Anion gap [Moles/Vol] 12.2 mmol/L Normal [facility] Comment on above: Performed By: #### TSH #### [facility] [address] [address] [address] Yue Vega Calcium [Mass/Vol] 9.4 mg/dL Normal 8.5-10.1 [facility] Comment on above: Performed By: #### TSH #### [facility] [address] [place] [address] Dr. Yue Vega Chloride [Moles/Vol] 99 mmol/L Normal 98-107 [facility] Comment on above: Performed By: #### TSH #### [facility] [address] [address] [address] Yue Vega CO2 [Moles/Vol] 32.1 mmol/L Critically high 21.0-32.0 [facility] Comment on above: Performed By: #### TSH #### [facility] [address] [place] [address] Dr. Yue Vega Creatinine [Mass/Vol] 1.19 mg/dL Normal 0.70-1.30 [facility] Comment on above: Performed By: #### TSH #### [facility] [address] [address] [address] Yue Vega EGFR-AF INDONESIAN >60 Normal >=60 [facility] Comment on above: Performed By: #### TSH #### [facility] [address] [address] [address] Yue Vega EGFR-NON AF INDONESIAN 58 mL/min/1.73m2 Critically low >=60 [facility] Comment on above: Performed By: #### TSH #### [facility] [address] [place] [address] Dr. Yue Vega Glucose [Mass/Vol] 158 mg/dL Critically high 74-106 [facility] Comment on above: Performed By: #### TSH #### [facility] [address] [address] [address] Yue Vega Potassium [Moles/Vol] 4.3 mmol/L Normal 3.5-5.1 [facility] Comment on above: Performed By: #### TSH #### [facility] [address] [address] [address] Yue Vega Sodium [Moles/Vol] 139 mmol/L Normal 136-145 [facility] Comment on above: Performed By: #### TSH #### [facility] [address] [address] [address] Yue Vega Urea nitrogen [Mass/Vol] 24.0 mg/dL Critically high 7.0-18.0 [facility] Comment on above: Performed By: #### TSH #### [facility] [address] [address] [address] Yue Vega Urea nitrogen/Creatin ine [Mass ratio] 20.2 mg/mg Normal [facility] Comment on above: Performed By: #### TSH #### [facility] [address] [address] [address] Yue Vega XR wrist LT min 3V*on 2021 XR wrist LT min 3V* [facility] [place] [address] XRay Report Signed Patient: Edwin Orourke MR#: [id number] : 1935 Acct:[id number] Age/Sex: 87 / M ADM Date: 09/05/22 Loc: XDUCLY Room: Type: [facility] Attending Dr: Sanaz ALEX Copies to: SANAZ [...] PROCESS. Impression dictated by: Albert Rene Jr., D.OMarli09/05/2022 5:57 PM Dictation Location: [place] [address] Transcribed By: [facility] 09/05/221756 Dictated By: Albert Rene Jr, DO 09/05/221756 Signed By: 09/05/221756 Normal [facility] XR wrist LT min 3V* [facility] [employer] Other XR wrist LT min 3V* [facility] [employer] Other XR wrist LT min 3V* [address] [place] [address] [employer] Other XR wrist LT min 3V* [place] [address] [employer] Other XR wrist LT min 3V* XRay Report [employer] Other XR wrist LT min 3V* Signed [employer] Other XR wrist LT min 3V* Patient: Edwin Orourke MR#: [id number] [facility] Other XR wrist LT min 3V* [id number] [employer] Other XR wrist LT min 3V* : 1935 Acct:[id number] [employer] Other XR wrist LT min 3V* Age/Sex: 87 / M ADM Date: 09/05/22 [employer] Other XR wrist LT min 3V* Loc: XDUCLY Room: Type: [facility] [employer] Other XR wrist LT min 3V* Attending Dr: Sanaz ALEX [employer] Other XR wrist LT min 3V* Copies to: SANAZ [employer] Other XR wrist LT min 3V* Ordering Provider: SANAZ CAMPO [facility] [place] [employer] Other XR wrist LT min 3V* Date of Service: 09/05/22 [employer] [facility] Other XR wrist LT min 3V* XR/XR wrist LT min 3V*: Injury of left wrist, initial encounter [employer] Other XR wrist LT min 3V* LEFT WRIST - 4 views [employer] [facility] [facility] Other XR wrist LT min 3V* CLINICAL HISTORY: Fall this morning. Now with left wrist pain. [employer] Other XR wrist LT min 3V* COMPARISON: None [employer] Other XR wrist LT min 3V* FINDINGS: [employer] Other XR wrist LT min 3V* No focal soft tissue abnormality. Vascular calcifications. No acute bony process is seen. [employer] Other XR wrist LT min 3V* Degenerative changes involving the carpus, worst at the CMC joint of the thumb. [employer] [facility] Other XR wrist LT min 3V* XR/XR wrist LT min 3V* [employer] [facility] Other XR wrist LT min 3V* IMPRESSION: [employer] Other XR wrist LT min 3V* NO ACUTE BONY PROCESS. [facility] Other XR wrist LT min 3V* Impression dictated by: Albert Rene Jr., D.OMarli09/05/2022 5:57 PM [employer] Other XR wrist LT min 3V* Dictation Location: [place] [address] [employer] Other XR wrist LT min 3V* Transcribed By: MEGAN 09/05/22 1757 [employer] [facility] Other XR wrist LT min 3V* Dictated By: Albert Rene Jr, DO 09/05/22 [facility] [employer] Other XR wrist LT min 3V* Signed By: [employer] Other XR wrist LT min 3V* 09/05/22 [facility] [employer] Other GLYCOHEMOGLOBIN A1Con 2021 ADA RECOMMENDATION SEE BELOW Normal [facility] Comment on above: Result Comment: ADA RECOMMENDED LIMIT 4. 0 - 6.0 ADA THERAPEUTIC TARGET < 7.0 ACTION SUGGESTED > 7.0 Performed By: #### A 1C #### [facility] [address] [address] [address] Yue Vega Glucose [Mass/Vol] 154 mg/dL Normal [facility] Comment on above: Performed By: #### A1C #### [facility] [address] [address] [address] Yue Vega HbA1c (Bld) [Mass fraction] 7.0 % Critically high 4.5-6.2 [facility] Comment on above: Performed By: #### A1C #### [facility] [address] [address] [address] Yue Vega Cardiovascular Lab Reporton 05-30-2018 Cardiovascular Lab Report [facility] [id number] Physician: Devendra Hood M.D.Medicine Service Date: 05/29/2018Division of Birthdate: 1935Cardiology Room #: 3CD [id number] [facility] [place], [place] [address]Qorwp Fax Cardiovascular Laboratory ReportINDICATION: Edwin Orourke is an 83-year-old man with history ofhypertension, hyperlipidemia, and diabetes. [facility] typical unstable angina. He thenhad [...] signed informed consent. 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 Tiago's testwas favorable. Access in the left radial artery was obtained usingultrasound guidance and micropuncture technique. A 6-Russian x 11 cmHydrophilic sheath was left. Verapamil was given through the sheath andheparin was administered intravenously. Bilateral selective coronaryangiography was then performed using 6-Russian JL4 for engagement of theleft coronary artery and a 6-Russian JR4 followed by a 6-Russian ALIREZA catheterfor engagement of the right coronary artery. Catheters were removed.Therapeutic ACT confirmed during the procedure and additional heparin givenas needed. A 6-Russian XB 3.5 guiding catheter was advanced and [...] 11 atmospheres and post dilated using [employer]ison 2.5 x 8 mm noncompliant balloon inflated [...] 11atmospheres and post dilated using [employer] 2.5 x 15 mm noncompliantballoon inflated at 18 atmospheres throughout the length of the stent.Angiography was performed. Intracoronary nitroglycerin was administered.It was decided to deploy an additional stent distal to the previouslydeployed stent. This was a Synergy 2.25 x 12 mm stent, deployed at 11atmospheres and post dilated using NC Quantum Denison 2.5 x 15 mm noncompliantballoon inflated at [...] 05/29/2018/01:20 P/Devendra Flores M.D.Date Trans: 05/30/2018 11:47 A/[id number]: Deep Velasquez D.O. [address] [facility] [address] [place] [address] Ramon Martines M.D. [address] [place] [address] [employer] [facility] POC GLUCOSE LABon 05-30-2018 Glucose mass conc 121 mg/dL High 70-100 [facility] Comment on above: Performed By: #### [id number] ####[facility] POC GLUCOSE LABon 05-29-2018 Glucose mass conc 126 mg/dL High 70-100 [facility] Comment on above: Performed By: #### [id number] ####[facility] Glucose mass conc 127 mg/dL High 70-100 [facility] Comment on above: Performed By: #### [id number] ####[facility] Vital Signs Date Time Vital Sign Value Performing Clinician Facility 09-05-2022 17:40-0500 Body height 180.34 cm Sanaz Campo Other [facility] Other 09-05-2022 17:40-0500 Body mass index (BMI) [Ratio] 27.89 kg/m2 Sanaz Campo Other [facility] Other 09-05-2022 17:40-0500 Body temperature 97.6 [degF] Sanaz Campo Other [facility] Other 09-05-2022 17:40-0500 Body weight 90.72 kg Sanaz Campo Other [facility] Other 09-05-2022 17:40-0500 Diastolic blood pressure 63 mm[Hg] Sanaz Campo Other [facility] Other 09-05-2022 17:40-0500 Respiratory rate 16 /min Sanaz Campo Other [facility] Other 09-05-2022 17:40-0500 SaO2% (BldA) [Mass fraction] 97 % Sanaz Campo Other [facility] Other 09-05-2022 17:40-0500 Systolic blood pressure 153 mm[Hg] Sanaz Campo Other [facility] Other Encounters Encounter Date Encounter Type Care Provider Facility Start: 12-01-2023 ambulatory Deven Dan ty:ELDON Lindsay Start: 11-06-2023 ambulatory Deven Dan ty:ELDON Lindsay Start: 10-11-2023 End: 10-11-2023 ambulatory ЕЛЕНА [facility] Start: 10-02-[address] [facility] Start: 10-02-2023 End: 10-02-[address] [facility] Start: 08-22-2023 End: 08-22-[address] [facility] Start: 04-26-2023 End: 04-26-2023 ambulatory [facility] Start: 03-24-2023 End: 03-24-2023 ambulatory Ramon Martines Facility:[facility] Start: 03-14-2023 End: 03-14-2023 ambulatory [facility] Start: 02-16-2023 End: 02-17-[address] DOCTOR NAGEL Facility: Start: 02-15-2023 End: 02-15-2023 ambulatory SARAH WILSON [facility] Start: 01-06-2023 End: 01-06-2023 ambulatory Jose Eduardo Murray Facility:[facility] Start: 01-06-2023 End: 01-06-2023 ambulatory MD Ramon Martines Work Phone: [facility] Work Phone: Start: 01-06-2023 End: 01-06-2023 Patient encounter procedure MD Ramon Martines Work Phone: [facility] [place] Work Phone: Start: 12-28-2022 End: 12-28-2022 ambulatory ЕЛЕНА LOU [facility] Start: 12-26-2022 End: 12-26-2022 ambulatory GONZÁLEZ CATIE . Facility: Start: 12-21-2022 End: 12-22-2022 ambulatory SUZI MURRAY Facility:[facility] Start: 12-06-2022 End: 12-31-[address] RAMON MARTINES Facility:[facility] Start: 09-26-2022 End: 09-27-[address] RAMON MARTINES Facility:[facility] Start: 09-05-2022 End: 09-05-2022 ambulatory Sanaz Campo Facility:[facility] Start: 09-05-2022 End: 09-05-2022 Patient encounter procedure [employer]-C Sanaz Campo Work Phone: [facility] [place] Start: 09-05-2022 End: 09-05-2022 ambulatory [employer] Sanaz Campo Work Phone: [facility] Work Phone: Start: 09-05-2022 Office outpatient visit 15 minutes Sanaz Campo [facility] [place] Start: 04-19-2022 End: 04-20-[address] RAMON MARTINES Facility: Start: 05-29-2018 End: 05-30-2018 Patient encounter PROVIDER UNKNOWN Facility:[facility] Start: 05-28-2018 End: 05-29-2018 Patient encounter DEFAULT PHYSICIAN Facility:[facility] Start: 05-20-2018 End: 05-21-2018 Patient encounter DEFAULT PHYSICIAN Facility:[facility] Procedures Date Procedure Procedure Detail Performing Clinician Start: 04-26-2023 Follow-up visit Follow-up JOAQUÍN SMITH Start: 01-06-2023 MRI of head MD Ramon chapman Work Phone: Start: 09-05-2022 Plain X-ray of left wrist [employer] Sanaz Campo Work Phone: Plan of Treatment Date Care Activity Detail Author [facility] Payers Date Payer Category Payer Self-pay 1957 Medicare [id number] 1957 Unknown [id number] 1937 Unknown [id number] 2.16.84 [id number] 1937 Unknown [id number] 2.16.84 [id number] 1937 Unknown [id number] 2.16.84 [id number] 1937 Unknown [id number] 2.16.84 [id number] 1937 Unknown [id number] 2.16.84 [id number] 1937 Unknown [id number] 2.16.84 [id number] 1937 Unknown [id number] 2.16.8 [id number] 1937 Unknown [id number] 2.16.8 [id number] Medicare [id number] Unknown Unknown [id number] 2.16.8 [id number] Unknown [id number] 2.16.8 [id number] Unknown [id number] 2.16.8 [id number] Social History Date Type Detail Facility Tobacco smoking status NHIS Unknown if ever smoked [facility] Work Phone: Start: 1935 Sex Assigned At Male F [facility] Sex Assigned At Sex Assigned At Bir th [facility] Other Clinical Notes 09-05-2022 to 10-11-2023 Note Date & Type Note Facility 10-11-2023 Note Stable s/p Dual chamber PPM [facility] 10-11-2023 Note Stable s/p Dual chamber PPM [facility] 10-11-2023 Note Pt presents for 1 we ek wound check s/p recent [employer] dual PPM implant for SSS/ bradycardia Incision site well approximated, healing well without s/s of infection [facility] 10-11-2023 Note [facility]TP CARDIOLOGY PROGR ESS NOTE [...] PROCEDURE: 10/02/23 PERFORMING PHYSICIAN: Dr. Mike Hilario PRESSROOM WORKER: Dr Lana Powell CONSENT: Patient LOCATION: EP Lab PROCEDURE PERFORMED: 1. Implantation of pacemaker ([employer]) 2. Ultrasound guided venous access INDICATIONS: 1. Sinus node dysfunction. 2. Bradycardia No echocardiogram results found for the past 12 months Assessment/Plan: Cardiac pacemaker in situ Pt presents for 1 week wound check s/p recent [employer] dual PPM implant for SSS/ bradycardia Incision site well approximated, healing well without s/s of infection Sinus node dysfunction (CMS/HCC) Stable s/p Dual chamber PPM Sinus bradycardia Stable s/p Dual chamber PPM RTC 1 month with device rep [facility] 10-02-2023 Note DUAL CHAMBER PACEMAK ER IMPLANT PROCEDURE NOTE DATE OF PROCEDURE: 10/02/23 PERFORMING PHYSICIAN: Dr. Mike Hilario PRESSROOM WORKER: Dr Lana Powell CONSENT: Patient LOCATION: EP Lab PROCEDURE PERFORMED: 1. Implantation of pacemaker ([employer]) 2. Ultrasound guided venous access INDICATIONS: [...] discontinued due to having ER visit with [facility] for complaints of dizziness and was [...] using modified seldinger technique using a 5 Russian micro-puncture needle on two occasions and 0.35 [...] for the device above the muscle. 6 Russian Safesheaths were placed over the wire. An active fixation [employer] pacing lead was then delivered through the 6Fsheath to the right ventricle. After confirmation of lead position on orthogonal views (GRAVES and FAROESE) to confirm septal position, the screw was activated, and the lead was placed in the right ventricular mid cavity towards the septum. After confirmation of good sensing parameters, injury pattern and pacing thresholds, 10V pacing was done and no diaphragmatic stimulation was noted. It was then secured in the pocket using three 1-0 Silk sutures. Then an active fixation [employer] lead was delivered through the 6Fsheath to the right atrial appendage. After confirmation of lead position on orthogonal views (GRAVES and FAROESE), the screw was activated. Good sensing parameters, [...] No driving for (more content not included)... 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 Use of blood products discussed with patient who. Additional Equipment Requests [facility] 08-22-2023 Note [place] Electrophysiology Note Reason for visit: bradycardia Date of Telehealth Visit: 08/22/23 The patient was notified that using 3rd alliance party telecommunication application (e.g., [employer]) is not HIPPA compliant and may carry some privacy risks. Yes The visit was conducted [id number] with the use of audio and video technology D[employer] between patient and provider for a virtual [...] discontinued due to having ER visit with [facility] for complaints of dizziness and was [...] ECG 05/04/2018: Atrial fibrillation, possible old septal CO. ECG 05/28/2018 showed sinus rhythm with 1st degree AV block and PAC. Possible anteroseptal CO. ECG today 03/21/2019: sinus rhythm with 1st [...] Cardio Basic Cardiovascular (more content not included)... [facility] 04-26-2023 Note [place] Electrophysiology Note Reason for [...] PACs. 05/04/2018: Atrial fibrillation, possible old septal CO. 05/28/2018 showed sinus rhythm with 1st degree AV block and PAC. Possible anteroseptal CO. 02/2023 HPI: Edwin Orourke is a 88 y.o. year old Was referred to EP clinic for bradycardia. He was recommended followed by his neurology group as he was found to be bradycardic with a pulse of 40 to 50s per his . In December 2022 had his metoprolol discontinued due to having ER visit with [facility] for complaints of dizziness and was [...] mid chest pain, was admitted to the [facility] and discharged the following day. He then went back and had a stress test on 05/17/2018 that showed large anterior ischemia with EF 64%. ECG 05/04/2018: Atrial fibrillation, possible old septal CO. ECG 05/28/2018 showed sinus rhythm with 1st degree AV block and PAC. Possible anteroseptal CO. Update 06/25/2018: He is seen after his [...] mid chest pain, was admitted to the [facility] and discharged the following day. He then went back and had a stress test on 05/17/2018 that showed large anterior ischemia with EF 64%. He says he never felt that before. Review of testing done during the [facility] admission showed mildl elevated of CK-MB, and elevated CK. His Tn showed a minimal rise but never reached cutoff for CO. CBC, BMP showed no anemia and normal renal function. He was also found to have AF , new onset not known before at the time of admission to [facility]. He was prescribed xarelto but was too expensive. He was given Brilinta 90 mg bid sample, and says that the medication will cost him a lot if he were to acquire it. I have reviewed the ECG done at [facility] and I think it showed SR. He has prior history of diabetes and hypertension on treatment. Since admission, he has been having angina with mild exertion. This is moderate in intensity. He has to stop activity for it to subside. ECG 05/04/2018: Atrial fibrillation, possible old septal CO. ECG 05/28/2018 showed sinus rhythm with 1st degree AV block and PAC. Possible anteroseptal CO. Update 06/25/2018: He is seen after his [...] reports one ep (more content not included)... [facility] 04-26-2023 Note Patient is here toda y for a 2 month follow up Review of Systems Constitutional: Positive for malaise/fatigue. Cardiovascular: Positive for dyspnea on exertion. Musculoskeletal: Positive for arthritis, back pain and joint pain. Neurological: Positive for light-headedness (when bending over). All other systems reviewed and are negative. [facility] 03-28-2023 Note - asymptomatic at th is time and during Holter monitor - for a treadmill stress test to rule out chronotropic incompetence/ SSS [facility] 03-28-2023 Note - CAD stable - continue aspirin [facility] 03-28-2023 Note - stable - continue aspirin 81 mg, lisinopril-hydrochlorothiazide 20-25 mg, hydralazine 25 mg 3 times daily Imdur 60 mg [facility] 03-14-2023 Note Patient here for fol low up Holter monitor to evaluate bradycardia per Sarah Wilson DNP. Denies chest pain. Still Review of Systems Constitutional: Positive for malaise/fatigue. Cardiovascular: Positive for dyspnea on exertion. Musculoskeletal: Positive for arthritis, back pain and joint pain. Neurological: Positive for light-headedness (when bending over). All other systems reviewed and are negative. [facility] 03-14-2023 Note [place] Electrophysiology Note Reason for [...] discontinued due to having ER visit with [facility] for complaints of dizziness and was [...] mid chest pain, was admitted to the [facility] and discharged the following day. He then went back and had a stress test on 05/17/2018 that showed large anterior ischemia with EF 64%. ECG 05/04/2018: Atrial fibrillation, possible old septal CO. ECG 05/28/2018 showed sinus rhythm with 1st degree AV block and PAC. Possible anteroseptal CO. Update 06/25/2018: He is seen after his [...] the PCI. He has no claudication. JIM Edwin is seen in follow up on CAD s/p stenting of LAD and Diagonal in 05/2018, hypertension. Visit of 05/28/2018: Mr Orourke is referred for chest pain and positive stress test. He is a 83 yo man who about 3 weeks ago went to bed and felt crushing mid chest pain, was admitted to the [facility] and discharged the following day. He then went back and had a stress test on 05/17/2018 that showed large anterior ischemia with EF 64%. He says he never felt that before. Review of testing done during the [facility] admission showed mildl elevated of CK-MB, and elevated CK. His Tn showed a minimal rise but never reached cutoff for CO. CBC, BMP showed no anemia and normal renal function. He was also found to have AF , new onset not known before at the time of admission to [facility]. He was prescribed xarelto but was too expensive. He was given Brilinta 90 mg bid sample, and says that the medication will cost him a lot if he were to acquire it. I have reviewed the ECG done at [facility] and I think it showed SR. He has prior history of diabetes and hypertension on treatment. Since admission, he has been having angina with mild exertion. This is moderate in intensity. He has to stop activity for it to subside. ECG 05/04/2018: Atrial fibrillation, possible old septal CO. ECG 05/28/2018 showed sinus rhythm with 1st degree AV block and PAC. Possible anteroseptal CO. Update 06/25/2018: He is seen after his [...] pressure is usu (more content not included)... [facility] 02-15-2023 Note Patient here to per neurology [...] All other systems reviewed and are negative. [facility] 02-15-2023 Note Cardiology Clinic No te Subjective [...] due to findings of bradycardia at the [facility] following presentation for evaluation of dizziness. is primary historian. She reports he has balance issues due to degenerative disk disease. He is unable to describe the symptoms he is experiencing, however denies recurrence of dizziness or lightheadedness. He does endorse feeling fatigued and overall poorly. Patient Active Problem List Diagnosis Coronary artery disease involving [place] coronary artery of [place] heart without angina pectoris Benign essential HTN Status post percutaneous transluminal coronary angioplasty Sinus bradycardia Vertigo Hyperlipidemia Gastroesophageal reflux disease Chest pain Type 2 diabetes mellitus without complication ([facility]) No family history on file. Social History Tobacco Use Smoking status: Never Smokeless tobacco: Never JIM Edwin is seen in follow up on CAD s/p stenting of LAD and Diagonal in 05/2018, hypertension. Visit of 05/28/2018: Mr Orourke is referred for chest pain and positive stress test. He is a 83 yo man who about 3 weeks ago went to bed and felt crushing mid chest pain, was admitted to the [facility] and discharged the following day. He then went back and had a stress test on 05/17/2018 that showed large anterior ischemia with EF 64%. He says he never felt that before. Review of testing done during the [facility] admission showed mildl elevated of CK-MB, and elevated CK. His Tn showed a minimal rise but never reached cutoff for CO. CBC, BMP showed no anemia and normal renal function. He was also found to have AF , new onset not known before at the time of admission to [facility]. He was prescribed xarelto but was too expensive. He was given Brilinta 90 mg bid sample, and says that the medication will cost him a lot if he were to acquire it. I have reviewed the ECG done at [facility] and I think it showed SR. He has prior history of diabetes and hypertension on treatment. Since admission, he has been having angina with mild exertion. This is moderate in intensity. He has to stop activity for it to subside. ECG 05/04/2018: Atrial fibrillation, possible old septal CO. ECG 05/28/2018 showed sinus rhythm with 1st degree AV block and PAC. Possible anteroseptal CO. Update 06/25/2018: He is seen after his [...] he when to the ER on Monday al (more content not included)... [facility] 12-28-2022 Note Hypertension is Stab le currently- Blood pressure log at home blood pressure is anywhere from 120-150/70-80- ER it was quite elevated 200/98 And hydralazine was added Orthostatic vitals were negative his blood pressure is actually lower lying than standing- He denied dizziness in office Continue all current meds [facility] 12-28-2022 Note Meclizine and follow -up with PCP He has followed up with neurology last week EKG 12/26/22- Sinus bradycardia with 1st degree AV block- 46 bpm ED summary 12/26/22 Vitals, B/P 200/98, HR 46, O2 sat 98% Pt was started also on hydralazine 25 mg tid. [facility] 12-28-2022 Note [facility]TP CARDIOLOGY PROGR ESS NOTE [...] mid chest pain, was admitted to the [facility] and discharged the following day. He then went back and had a stress test on 05/17/2018 that showed large anterior ischemia with EF 64%. ECG 05/04/2018: Atrial fibrillation, possible old septal CO. ECG 05/28/2018 showed sinus rhythm with 1st degree AV block and PAC. Possible anteroseptal CO. Update 06/25/2018: He is seen after his [...] less than 2 (more content not included)... [facility] 12-28-2022 Note Pt is here for dizzi ness pt states he been having Dizziness stated he when to the ER on Monday also states he is still having Dizziness but not as bad Review of Systems Constitutional: Positive for malaise/fatigue. Neurological: Positive for dizziness and light-headedness. All other systems reviewed and are negative. [facility] 12-28-2022 Note Concerning cardiac s ymptoms at this time continue goal-directed medical therapy continue risk factor modifications- heart healthy diet, regular exercise as tolerated and continue all medications. [facility] 09-05-2022 Evaluation note Encounter Date Diagnosis Assessment [...] care office for follow up on Monday [facility] Other Evaluation noteNo assessment information available [facility] Work Phone: History general Narrative - Reported* Type Description Date Medical History diabetes mallitus Medical History high blood pressure Medical History high cholesterol Surgical History b/l knee 1999 [facility] Other Summary Purpose Family History No Family [...] section and content) DATE CREATED AUTHOR 06/21/2018 [facility] DATE CREATED AUTHOR AUTHOR'S ORGANIZ ATION 02/23/2023 [facility] DATE CREATED AUTHOR AUTHOR'S ORGANIZ ATION 04/05/2023 [facility] DATE CREATED AUTHOR AUTHOR'S ORGANIZ ATION 10/13/2023 [facility] DATE CREATED AUTHOR AUTHOR'S ORGANIZ ATION 10/19/2023 [facility] Care Teams (unrecognized sec tion and content) [...] BE BASED ON THE PRIMARY CLINICAL RECORDS. [employer] provides no warranty or guarantee of the accuracy or completeness of information in this document.
== END 2023-11-21 12:35 | disposition home or self-care (01) ==
PROVIDERS: PCP Family Medicine; Visit Provider Nurse Practitioner
DX: M48.062 Spinal stenosis, lumbar region with neurogenic claudication (principal); M25.512 Pain in left shoulder
CPT/HCPCS: G0463

== ENCOUNTER 2023-12-05 09:44 | Day surgery (SDC) | payer MEDICARE, OTHER, SELFPAY ==
[2023-12-05 09:55] VITALS: BP 123/56; PULSE 66; RESP 16; TEMP 36.7; O2SAT 98
--- OUTSIDE RECORDS SUMMARY | 2023-12-05 10:06 | XMS_ITS | CCD ---
Author Name Unknown Address [address] [facility] [address] [place] [address] Organization [facility] Care Team Providers Care Living Advisor Name Role Phone PHYSICIAN, DEFAULT Unavailable Unavailable PHYSICIAN, DEFAULT Unavailable Unavailable SNEHA, DEEP Unavailable Unavailable PHYSICIAN, DEFAULT Unavailable Unavailable PHYSICIAN, DEFAULT Unavailable Unavailable SNEHA, DEEP Unavailable Unavailable UNKNOWN, PROVIDER Unavailable Unavailable UNKNOWN, PROVIDER Unavailable Unavailable SNEHA, DEEP Unavailable Unavailable RAMON MARTINES Unavailable Unavailable ISAI Campo Attending Provider [phone] Sanaz Campo Unavailable DO Jose Eduardo Murray Attending Provider [phone] MD Ramon Martines Primary Care Provider BOBBI, DR RAMON Chen Primary Care Unavailable NADERER, DR RAMON Chen Consulting Unavailable NADEREElsie, DR [...] NADEREElsie, DR RAMON Chen Primary Care Unavailable NADERER, DR RAMON Chen Primary Care Unavailable NADEREElsie, DR RAMON Chen Attending Unavailable NADEREElsie, DR RAMON Chen Admitting Unavailable GONZÁLEZ PARHAM [...] Primary Care Unavailable Ramon Martines Attending Unavailable MIKE HILARIO Attending Unavailable JOAQUÍN NELSON Attending Unavailable JOAQUÍN NELSON Attending Unavailable SARAH WILSON Attending Unavailable MIKE HILARIO Referring Unavailable ЕЛЕНА LOU Attending Unavailable MIKE HILARIO Referring Unavailable DASHA, ЕЛЕНА Attending Unavailable MIKE HILARIO Admitting Unavailable MIKE HILARIO Attending Unavailable RAMON MARTINES Primary Care Physician [phone] Deven BUTLER Attending Unavailable Deven BUTLER Attending Unavailable Allergies Allergy Classification Reported Allergen(s) Allergy Type Date of Onset Reaction(s) Facility (1 source) 29145,00 Drug allergy (disorder) 11-15-2010 [facility] Repository Medications Current Medications Medication Drug Class(es) Dates Sig (Normalized) Sig (Original) Aspirin (1 source) Platelet Aggregation Inhibitor, Nonsteroidal Anti-inflammatory Drug Aspirin 81 Active citalopram 10 mg oral tablet (1 source) Serotonin Reuptake Inhibitor Start: 12-01-2023 citalopram 10 mg Tab Refills(s) 0 Start Date: 12/01/23 Status: Ordered docusate sodium 100 mg oral capsule (1 source) Start: 12-01-2023 take 1 capsule by mouth twice daily as needed for constipation docusate sodium 100 mg Cap 100 mg = 1 cap(s), Oral, BID, PRN for constipation, # 20 cap(s), Refills(s) 0 Start Date: 12/01/23 Status: Ordered donepezil (1 source) Donepezil HCl Active Flonase (1 source) Corticosteroid Start: 12-01-2023 Flonase mcg, Daily, Refill(s) 0 Start Date: 12/01/23 Status: Ordered gabapentin 300 mg oral capsule (1 source) Anti-epileptic Agent Start: 12-01-2023 gabapentin 300 mg Cap Refills(s) 0 Start Date: 12/01/23 Status: Ordered hydrALAZINE hydrochloride 25 mg oral tablet (1 source) Arteriolar Vasodilator Start: 12-01-2023 take 1 mg by mouth four times daily hydrALAZINE 25 mg Tab mg tab(s), Oral, QID, Refills(s) 0 Start Date: 12/01/23 Status: Ordered hydroCHLOROthiazide 25 mg / lisinopril 20 mg oral tablet (2 sources) Thiazide Diuretic, Angiotensin Converting Enzyme Inhibitor Start: 12-01-2023 hydrochlorothia zide-lisinopril 25 mg-20 mg Tab Refill(s) 0 Start Date: 12/01/23 Status: Ordered Lisinopril-hydro CHLOROthiazide Active 24 hr isosorbide mononitrate 60 mg extended release oral tablet (2 sources) Nitrate Vasodilator Start: 12-01-2023 isosorbide mononitrate 60 mg ER Tab Refills(s) 0 Start Date: 12/01/23 Status: Ordered Isosorbide Whiteside itrate ER Active latanoprost (2 sources) Prostaglandin Analog Start: 12-01-[address] ophthalmic qPM, Refill(s) 0 Start Date: 12/01/23 Status: Ordered Latanoprost Acti ve Claritin (1 source) Start: 12-01-2023 Claritin Daily , Refills(s) 0 Start Date: 12/01/23 Status: Ordered lovastatin 40 mg oral tablet (2 sources) HMG-CoA Reductase Inhibitor Start: 12-01-2023 lovastatin 40 mg Tab Refills(s) 0 Start Date: 12/01/23 Status: Ordered Lovastatin Activ e metFORMIN hydrochloride 500 mg oral tablet (2 sources) Biguanide Start: 12-01-2023 take 1 mg by mouth once daily metformin 500 mg ER Tab mg tab(s), Oral, Daily, Refills(s) 0 Start Date: 12/01/23 Status: Ordered metFORMIN HCl Ac tive Metoprolol (1 source) beta-Adrenergic Chandler Metoprol ol Succinate ER Active Naproxen (1 source) Nonsteroidal Anti-inflammatory Drug Naproxen Active omeprazole 40 mg delayed release oral capsule (1 source) Proton Pump Inhibitor Start: 12-01-19 take 1 mg by mouth once daily omeprazole 40 mg Cap-DR mg cap(s), Oral, Daily, Refills(s) 0 Start Date: 12/01/23 Status: Ordered 24 hr oxybutynin chloride 15 mg extended release oral tablet (1 source) Cholinergic Muscarinic Antagonist Start: 12-01-19 take 1 mg by mouth once daily oxybutynin 15 mg ER Tab mg tab(s), Oral, Daily, Refills(s) 0 Start Date: 12/01/23 Status: Ordered Miralax (1 source) Osmotic Laxative Start: 12-01-19 take 1 g by mouth once daily MiraLax gm, Oral, Daily, Refill(s) 0 Start Date: 12/01/23 Status: Ordered PreserVision AREDS (1 source) PreserVision ARE DS Active sodium chloride 1000 mg oral tablet (1 source) Start: 12-01-19 sodium chloride 1000 mg oral tablet, soluble Refill(s) 0 Start Date: 12/01/23 Status: Ordered tamsulosin hydrochloride 0.4 mg oral capsule (2 sources) alpha-Adrenergic Chandler Start: 12-01-19 take 1 mg by mouth once daily tamsulosin 0.4 mg Cap mg cap(s), Oral, Daily, Refills(s) 0 Start Date: 12/01/23 Status: Ordered Tamsulosin HCl A ctive Wrist Brace - (1 source) Start: 09-05-2022 Wrist Brace - as directed Aug, Active Zinc (1 source) Start: 12-01-2023 take 1 mg by mouth o nce daily Zinc mg, Oral, Daily, Refills(s) 0 Start Date: 12/01/23 Status: Ordered Completed/Discontinued Medications Medication Drug Class(es) Dates Sig (Normalized) Sig (Original) ciprofloxacin 250 mg oral tablet (1 source) Quinolone Antimicrobial Start: 12-01-2023 take 1 tablet by mouth once daily Cipro 250 mg Tab 250 mg = 1 tab(s), Oral, Daily, Take 1 tablet the day before the procedure and 1 tablet after the procedure, # 2 tab(s), Refills(s) 0, Pharmacy: [id number], 177, cm, 12/01/23 9:25:00 EST, Height/Length Dosing, 85, kg, 12/01/23 9:25:00 EST, Weight Dosing Start Date: 12/01/23 Status: Ordered Problems Active Problems Problem Classification Problem Date Documented Date Episodic/Chronic Cancer of prostate (2 sources) Personal history of malignant neoplasm of prostate; Translations: [History of malignant neoplasm of prostate] Onset: 12-01-2023 Episodic Cardiac dysrhythmias (3 sources) Unspecified atrial fibrillation; Translations: [Sick sinus syndrome] Onset: 05-29-2018 Chronic Cardiac dysrhythmias (3 sources) Bradycardia, unspecified; Translations: [BRADYCARDIA UNSPECIFIED] Onset: 12-28-2022 Episodic Conduction disorders (2 sources) Presence of cardiac pacemaker; Translations: [Presence of cardiac pacemaker] Onset: 11-21-2023 Chronic Coronary atherosclerosis and other heart disease (6 sources) Atherosclerotic heart disease of [place] coronary artery with unstable angina pectoris; Translations: [Atherosclerotic heart disease of [place] coronary artery without angina pectoris] Onset: 05-29-2018 Chronic Delirium, dementia, and amnestic and other cognitive disorders (4 sources) Alzheimer's disease with late onset; Translations: [ALZHEIMERS DISEASE WITH LATE ONSET] Onset: 12-21-2022 Chronic Diabetes mellitus with complications (4 sources) Type 2 diabetes mellitus with hyperglycemia; Translations: [TYPE 2 DM W/HYPERGLYCEMIA] Onset: 09-26-2022 Chronic Diabetes mellitus without complication (3 sources) Type 2 diabetes mellitus without complications; Translations: [Diabetes mellitus] Onset: 05-29-2018 03-02-2020 Chronic Disorders of lipid metabolism (2 sources) Hyperlipidemia, unspecified; Translations: [HYPERLIPIDEMIA, UNSPECIFIED] Onset: 05-29-2018 Chronic Esophageal disorders (2 sources) Gastro-esophageal reflux disease without esophagitis; Translations: [GASTRO-ESOPHAGEAL REFLUX DISEASE WITHOUT ESOPHAGITIS] Onset: 05-29-2018 Chronic Essential hypertension (8 sources) Essential (primary) hypertension; Translations: [ESSENTIAL (PRIMARY) HYPERTENSION] Onset: 05-29-2018 Chronic Genitourinary symptoms and ill-defined conditions (2 sources) Incontinence without sensory awareness; Translations: [Incontinence without sensory awareness] Onset: 12-01-2023 Chronic Genitourinary symptoms and ill-defined conditions (2 sources) History of urinary tract infection; Translations: [Personal history of urinary (tract) infections] Onset: 12-01-2023 Episodic Glaucoma (1 source) Glaucoma 03-02-2020 Chronic Hyperplasia of prostate (2 sources) Benign prostatic hypertrophy with outflow obstruction; Translations: [Benign prostatic hyperplasia with lower urinary tract symptoms] Onset: 12-01-2023 Chronic Osteoarthritis (1 source) Arthritis 03-02-2020 Chronic Other aftercare (1 source) [facility] (current) use of antithrombotics/antip latelets; Translations: [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 MAKER (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) USE OF ANTITHROMBOTICS/ANTIP LATELETS] Onset: 05-29-2018 Episodic Other aftercare (2 sources) 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; Translations: [HALF-WAY (CURRENT) USE OF ASPIRIN] Onset: 05-29-2018 Episodic Other aftercare (1 source) Other group home (current) drug therapy; Translations: [OTH HALF-WAY CURRENT DRUG THERAPY] Onset: 12-28-2022 Episodic Other aftercare (1 source) [facility] (current) use of oral hypoglycemic drugs; Translations: [HALF-WAY USE ORAL HYPOGLYCEMIC DX] Onset: 12-28-2022 Episodic Other and ill-defined heart disease (1 source) Heart disease 03-02-2020 Chronic Other diseases of bladder and urethra (1 source) Detrusor overactivity; Translations: [Overactive bladder] Onset: 12-01-2023 Chronic Other diseases of bladder and urethra (1 source) Overactive bladder 12-01-2023 Chronic Other ear and sense organ disorders (1 source) Hearing loss 03-02-2020 Chronic Other injuries and conditions due to external causes (1 source) Unspecified injury of left wrist, hand and finger(s), initial encounter Episodic Other male genital disorders (1 source) Impotence 03-02-2020 Chronic Other nervous system disorders (1 source) Unsteadiness [...] / UNK(Unknown) Onset: 05-29-2018 Unclassified (1 source) 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; Translations: [STAIN MAKER (CURRENT) USE OF ORAL HYPOGLYCEMIC DRUGS] Onset: 05-29-2018 Unclassified (1 source) Alzheimer's disease with late onset; Translations: [Alzheimer's disease with late onset] Onset: 01-06-2023 Unclassified (1 source) Unspecified injury of left wrist, hand and finger(s), initial encounter; Translations: [Unspecified injury of left wrist, hand and finger(s), initial encounter] Onset: 09-05-2022 Unclassified (1 source) Drug therapy finding 03-02-2020 Past or Other Problems Problem Classification Problem Date Documented Da te Episodic/Chronic Conditions associated with dizziness or vertigo (6 sources) Dizziness and giddiness; Translations: [Benign paroxysmal vertigo, unspecified ear] Onset: 12-26-2022 Episodic Coronary atherosclerosis and other heart disease (2 sources) Coronary angioplasty status; Translations: [Coronary angioplasty status] Onset: 12-28-2022 Episodic Results Test Name Value Interpretation Reference Range Facility Ambulatory Visit Summaryon 0 12-01-2023 Ambulatory Visit Summary EDWIN OROURKE :1935 Visit Date:12/01/2023 Ambulatory Visit Instructions Your Diagnosis History of prostate cancer Incontinence without sensory awareness OAB (overactive bladder) BPH with urinary obstruction History of UTI Your Care Team Attending Physician - MÓNICA STEPHENSON, Deven Zimmerman Primary Care Physician - BOBBI STEPHENSON, RAMON This Is Your Medications List Contact prescribing physician if questions or concerns citalopram (citalopram 10 mg Tab) docusate (docusate sodium 100 mg Cap) fluticasone nasal (Flonase) gabapentin (gabapentin 300 mg Cap) hydrALAZINE (hydrALAZINE 25 mg Tab) hydrochlorothiazide-lisinopril (hydrochlorothiazide-lisinopril 25 mg-20 mg Tab) isosorbide mononitrate (isosorbide mononitrate 60 mg ER Tab) latanoprost ophthalmic loratadine (Claritin) lovastatin (lovastatin 40 mg Tab) metformin (metformin 500 mg ER Tab) omeprazole (omeprazole 40 mg Cap-DR) oxybutynin (oxybutynin 15 mg ER Tab) polyethylene glycol 3350 (MiraLax) sodium chloride (sodium chloride 1000 mg oral tablet, soluble) tamsulosin (tamsulosin 0.4 mg Cap) zinc sulfate (Zinc) Procedures Performed Appendectomy, Arthroplasty of knee, CE - Cataract extraction, Implantation of radioactive seed into prostate, Placement of stent in cardiac conduit. Discharge Vitals Heart Rate (Peripheral) 60 Respiratory Rate 16 Blood Pressure 111/63 Height 177 cm Height 70 in Weight 85 kg Weight 187 lb BMI 27.13 What to do next You Need to Schedule the Following Appointments Follow Up with MÓNICA STEPHENSON, ANA MARIA Briscoe When: Where: [address] [place] [address]- Medications What How Much When Instructions Unchanged citalopram (citalopram 10 mg Tab) Contact prescribing physician if questions or concerns Unchanged docusate (docusate sodium 100 mg Cap) 1 Capsules By Mouth 2 times a day as needed for for constipation Contact prescribing physician if questions or concerns Unchanged fluticasone nasal (Flonase) Every day Contact prescribing physician if questions or concerns Unchanged gabapentin (gabapentin 300 mg Cap) Contact prescribing physician if questions or concerns Unchanged hydrALAZINE (hydrALAZINE 25 mg Tab) By Mouth 4 times a day Contact prescribing physician if questions or concerns Unchanged hydrochlorothiazide-lisinopril (hydrochlorothiazide-lisinopril 25 mg-20 mg Tab) Contact prescribing physician if questions or concerns Unchanged isosorbide mononitrate (isosorbide mononitrate 60 mg ER Tab) Contact prescribing physician if questions or concerns Unchanged latanoprost ophthalmic Once a day (in the evening) Contact prescribing physician if questions or concerns Unchanged loratadine (Claritin) Every day Contact prescribing physician if questions or concerns Unchanged lovastatin (lovastatin 40 mg Tab) Contact prescribing physician if questions or concerns Unchanged metformin (metformin 500 mg ER Tab) By Mouth Every day Contact prescribing physician if questions or concerns Unchanged omeprazole (omeprazole 40 mg Cap-DR) By Mouth Every day Contact prescribing physician if questions or concerns Unchanged oxybutynin (oxybutynin 15 mg ER Tab) By Mouth Every day Contact prescribing physician if questions or concerns Unchanged polyethylene glycol 3350 (MiraLax) By Mouth Every day Contact prescribing physician if questions or concerns Unchanged sodium chloride (sodium chloride 1000 mg oral tablet, soluble) Contact prescribing physician if questions or concerns Unchanged tamsulosin (tamsulosin 0.4 mg Cap) By Mouth Every day Contact prescribing physician if questions or concerns Unchanged zinc sulfate (Zinc) By Mouth Every day Contact prescribing physician if questions or concerns Allergies No Known Allergies Problems Ongoing - Any problem that you are currently receiving treatment for. Anticoagulated Arthritis BPH with urinary obstruction Deafness Diabetes Erectile dysfunction Glaucoma Heart disease History of prostate cancer History of UTI Incontinence without sensory awareness OAB (overactive bladder) Patient Survey You may receive a survey via text or e-mail asking about your office visit. Please share your experience with us by completing your survey. We appreciate your feedback and thank you for choosing us for your care. Education Materials Urinary Incontinence Urinary incontinence refers to a condition in which a person is unable to control where and when to pass urine. A person with this condition will urinate involuntarily. This means that the person urinates when he or she does not mean to. What are the causes? This condition may be caused by: ? Medicines. ? Infections. ? Constipation. ? Overactive bladder muscles. ? Weak bladder muscles. ? Weak pelvic floor muscles. These muscles provide support for the bladder, intestine, and, in women, the uterus. ? (more content not included)... Normal [facility] Usp Recordson 12-01 Usp Records [id number] Normal [facility] Usp Records [id number] [facility] Patient Educationon 12-01-19 Patient Education Urology Urinary Incontinence Urinary incontinence refers to a condition in which a person is unable to control where and when to pass urine. A person with this condition will urinate involuntarily. This means that the person urinates when he or she does not mean to. What are the causes? This condition may be caused by: ? Medicines. ? Infections. ? Constipation. ? Overactive bladder muscles. ? Weak bladder muscles. ? Weak pelvic floor muscles. These muscles provide support for the bladder, intestine, and, in women, the uterus. ? Enlarged prostate in men. The prostate is a gland near the bladder. When it gets too big, it can pinch the urethra. With the urethra blocked, the bladder can weaken and lose the ability to empty properly. ? Surgery. ? Emotional factors, such as anxiety, stress, or post-traumatic stress disorder (PTSD). ? Spinal cord injury, nerve injury, or other neurological conditions. ? Pelvic organ prolapse. This happens in women when organs move out of place and into the vagina. This movement can prevent the bladder and urethra from working properly. What increases the risk? The following factors may make you more likely to develop this condition: ? Age. The older you are, the higher the risk. ? Obesity. ? Being physically inactive. ? and childbirth. ? Menopause. ? Diseases that affect the nerves or spinal cord. ? Long-term, or chronic, coughing. This can increase pressure on the bladder and pelvic floor muscles. What are the signs or symptoms? Symptoms may vary depending on the type of urinary incontinence you have. They include: ? A sudden urge to urinate, and passing urine involuntarily before you can get to a bathroom (urge incontinence). ? Suddenly passing urine when doing activities that force urine to pass, such as coughing, laughing, exercising, or sneezing (stress incontinence). ? Needing to urinate often but urinating only a small amount, or constantly dribbling urine (overflow incontinence). ? Urinating because you cannot get to the bathroom in time due to a physical disability, such as arthritis or injury, or due to a communication or thinking problem, such as Alzheimer's disease (functional incontinence). How is this diagnosed? This condition may be diagnosed based on: ? Your medical history. ? A physical exam. ? Tests, such as: ? Urine tests. ? X-rays of your kidney and bladder. ? Ultrasound. ? CT scan. ? Cystoscopy. In this procedure, a health care provider inserts a tube with a light and camera (cystoscope) through the urethra and into the bladder to check for problems. ? Urodynamic testing. These tests assess how well the bladder, urethra, and sphincter can store and release urine. There are different types of urodynamic tests, and they vary depending on what the test is measuring. To help diagnose your condition, your health care provider may recommend that you keep a log of when you urinate and how much you urinate. How is this treated? Treatment for this condition depends on the type of incontinence that you have and its cause. Treatment may include: ? Lifestyle changes, such as: ? Quitting smoking. ? Maintaining a healthy weight. ? Staying active. Try to get 150 minutes of moderate-intensity exercise every week. Ask your health care provider which activities are safe for you. ? Eating a healthy diet. ? Avoid high-fat foods, like fried foods. ? Avoid refined carbohydrates like white bread and white rice. ? Limit how much alcohol and caffeine you drink. ? Increase your fiber intake. Healthy sources of fiber include beans, whole grains, and fresh fruits and vegetables. ? Behavioral changes, such as: ? Pelvic floor muscle exercises. ? Bladder training, such as lengthening the amount of time between bathroom breaks, or using the bathroom at regular intervals. ? Using techniques to suppress bladder urges. This can include distraction techniques or controlled breathing exercises. ? Medicines, such as: ? Medicines to relax the bladder muscles and prevent bladder spasms. ? Medicines to help slow or prevent the growth of a man's prostate. ? Botox injections. These can help relax the bladder muscles. ? Treatments, such as: ? Using pulses of electricity to help change bladder reflexes (electrical nerve stimulation). ? For women, using a medical leader to prevent urine leaks. This is a small, tampon-like, disposable device that is inserted into the urethra. ? Injecting collagen or carbon beads (bulking agents) into the urinary sphincter. These can help thicken tissue and close the bladder opening. ? Surgery. Follow these instructions at home: Lifestyle ? Limit alcohol and caffeine. These can fill your bladder quickly and irritate it. ? Keep yourself clean to help prevent odors and skin damage. Ask your health care provider about special skin creams and cleansers that can protect the skin from urine. ? (more content not included)... Normal [facility] RAD - MRI Reporton RAD - MRI Report [id number] Normal [facility] Urology Office/Clinic Noteon 12-01-2023 Urology Office/Clinic Note Chief Complaint frequency of urination HPI Staff 88 yo male new pt here for urinary frequency. Last seen in office 03/02/20 by PRW. Previous dx: BPH with obstruction, ED, hx of prostate ca, anticoagulated. S/p brachytherapy 20 yrs ago. PSA 02/06/20 - <0.05 Pt states that he had a catheter placed in the hospital at the end of September due to uncontrolled urination but after he went to the [place] on 10/17/23 the catheter was removed within a week of being there due to his urine having pus and thought he needed treatment for UTI. Pt was treated with antibiotic but does not know which one. Pt is taking Tamsulosin 2tabs QD and Oxybutynin 15mg ER QD. Dysuria: no Incomplete bladder emptying: pt states he is unsure due to not being able to feel the urine coming out Hematuria: no Frequency: every 2 hours Urgency: pt states he is unable to make it a lot of the time Nocturia: every 2 hours Stream: pt does not know. He states that he has the urge to go but cannot feel his stream Leaking: yes Post void dripping: yes Wearing pads/ Depends: 5-6x Urge incontinence: yes Stress incontinence: no Incontinence without Sensory Awareness: pt is unaware of urination happening when he is asleep Abdominal pain: no Flank pain: no Sexual complaints: no History of Present Illness Tests reviewed: reviewed UA, external records. I have reviewed the previous health record information and history for this patient from external provider. I have reviewed and verified the staff HPI to be accurate for this encounter. There have been no associated fever, chills, flank pain, or blood in the urine. Denies any urinary infections since last encounter. Review of Systems PHQ Score Initial Depression Screen Score: 0 SCORE ROS - Provider Constitutional: denies weight loss, denies hot flashes. Eyes: denies eye problems. Gastrointestinal: denies nausea, denies vomiting. Cardiovascular: denies chest pain or angina. Integumentary: no dryness Musculoskeletal: denies musculoskeletal symptoms. ENMT: denies otolaryngeal symptoms. Respiratory: no shortness of breath. Heme/Lymph: denies easy bleeding tendency, denies easy bruising tendency. Psychiatric: no confusion, no anxiety. Genitourinary: See HPI. Physical Exam Vitals & Measurements HR: 60(Peripheral) RR: 16 BP: 111/63 HT: 70 in HT: 177 cm WT: 85 kg WT: 187 lb BMI: 27.13 General Appearance: alert, no distress, well nourished, well developed male. Assessment/Plan Edwin is an 88 yo male new to our office for urinary frequency. Last seen in office by Dr. Butler 03/02/20. Pt here with his today. Residing at [facility]. 1. History of prostate cancer (Z85.46: Personal history of malignant neoplasm of prostate) PSA: 02/06/20 - <0.05 Latest PSA on file. S/p brachytherapy approx. 20 years ago. 2. 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 Treated with antibiotic but does not know which one. Pt uncertain if he is emptying since he has little to no sensation. Made mention that he has the urge to void, but cannot feel his stream. Reports of constipation. States he has not had a bowel movement in several days. [place] staff has been providing pt with laxatives. reports pt has back issues. States the reason he is at [facility] is due to the inability to walk. Will review MRI lumbar spine that was done 03/2023. 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 -Will schedule cysto and urodynamics. The risks and benefits for cystoscopy have been discussed. The risks include bleeding, infection, and irritation of the bladder and urinary channel, among others. The patient, after being informed of procedural details and after questions have been answered, wishes to proceed. Full informed consent has been obtained. Will order Local anesthesia. -Orders written for prophylactic Cipro 3. OAB (overactive bladder) (N32.81: Overactive bladder) Taking Oxybutynin 15mg ER qd. C/o of frequency and urgency. states that he dribbles. Could be due to radiation. See #2. -Scheduling cysto and uro's 4. 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 See #2. 5. History of UTI (Z87.440: Personal history of urinary (tract) infections) See #2 Unable to provide urine specimen today. Follow-up With When Contact Information MÓNICA STEPHENSON, Deven Zimmerman, [address] [place] [address]- Additional Instructions: Scheduling cysto and uro's Patient Education Urinary Incontinence I, Shena Taylor, personally scribed for Dr. Butler on 12/01/2023 10:07:45. Elect (more content not included)... [facility] Comment on above: Result Comment: Electronically Signed By : Deven BUTLER MD\.br\Date and Time Signed: 12/01/23 10:12 EST\.br\Electronically Co-Signed By: Shena Taylor.br\Date and Time Co-Signed: 12/01/23 10:08 EST Lab Reportson 10-18-2023 Lab Reports [id number]#1.00TIFF Normal [facility] Lab Reportson 10-17-2023 Lab Reports [id number]#1.00TIFF [facility] Lab Reports [id number]#1.00TIFF [facility] Lab Reports [id number]#1.00TIFF Normal [facility] Lab Reports [id number]#1.00TIFF [facility] Lab Reports [id number]#1.00TIFF [facility] Lab Reports [id number]#1.00TIFF Normal [facility] Lab Reports [id number]#1.00TIFF [facility] Lab Reports [id number]#1.00TIFF [facility] Lab Reports [id number]#1.00TIFF [facility] Office Visiton 10-11-2023 Follow-up visit [id number] Edwin Orourke 1935 [facility] Provider Department Center 10/11/2023 ЕЛЕНА SALMON [facility] No family history on file Level of Service:70919 [place] POSTOP FOLLOW UP VISIT RELATED TO ORIGINAL PX Normal [facility] HPon 10-02-2023 [facility] Electrophysiology Note Reason for visit: bradycardia HPI: [...] discontinued due to having ER visit with [facility] for complaints of dizziness and was found to be bradycardic. Since stopping he has been fairly asymptomatic with no complaints of lightheadedness, dizziness, fatigue. He was also found to have AF , new onset in 2017. He was prescribed xarelto but was too [...] ECG 05/04/2018: Atrial fibrillation, possible old septal PA. ECG 05/28/2018 showed sinus rhythm with 1st degree AV block and PAC. Possible anteroseptal PA. ECG today 03/21/2019: sinus rhythm with 1st [...] alcohol abuse, Hematolog (more content not included)... [facility] NURSNOTEon 10-02-2023 NURSNOTE RN educated pt on d/ c instructions. RN encouraged pt to voice any questions or concerns. Pt verbalizes no questions or concerns at this time. Pt was wheeled off of unit with all of belongings. [facility] NURSNOTE CHG wipes and betadi ne nasal swabs completed. [facility] Orders Onlyon 10-02-2023 Orders Only [id number] Edwin Orourke 1935 M Date Provider Department [place] 10/02/2023 EMETERIO GONZALEZ [facility] No family history on file [facility] Orders Onlyon 09-25-2023 Orders Only [id number] Edwin Orourke 1935 M Date Provider Department Center 09/25/2023 EMETERIO GONZALEZ [facility] No family history on file [facility] Telemedicineon 08-22-2023 Telemedicine [id number] Edwin Orourke 1935 M Date Provider Department [place] 08/22/2023 MIKE CASTILLO CARD [facility] No family history on file Level of Service:75002 [place] PHYS/QHP TELEPHONE EVALUATION 11-20 MIN [facility] 36on 07-27-2023 36 No vm Normal [facility] Office Visiton 04-26-2023 Follow-up visit [id number] Edwin Orourke 1935 M Date Provider Department Center 04/26/2023 Ambrose-JOAQUÍN NELSON [facility] No family history on file Level of Service:86444 [place] OFFICE/OUTPATIENT ESTABLISHED MOD MDM 30-39 MIN Reason for Visit and Comments: Follow-up [403665] - 2 month follow up Normal [facility] MR lumbar spine wo conon MR lumbar spine wo con [facility] [address] MRI Report Signed Patient: Edwin Orourke MR#: [id number] : 1935 Acct:[id number] Age/Sex: 88 / M ADM Date: 03/24/23 Loc: MR Room: Type: [facility] Attending Dr: Ramon Martines MD Copies to: Ramon Martines MD Ordering Provider: Ramno Martines MD Date of Service: 03/24/23 MR/MR [...] Mamta Barrios M.D.03/25/2023 2:26 PM Dictation Location: [place] [address] Transcribed By: [facility] 03/25/23 1426 Dictated By: Mamta Barrios II, MD 03/25/23 1419 Signed By: 03/25/23 1426 [facility] Orders Onlyon 03-15-2023 Orders Only [id number] Edwin Orourke 1935 M Date Provider Department Center 03/15/2023 Maame-YURY SANTOS CARD [facility] No family history on file [facility] Office Visiton 03-14-2023 Follow-up visit [id number] Edwin Orourke 1935 M Date Provider Department Center 03/14/2023 Ambrose-JOAQUÍN NELSON [facility] No family history on file Level of Service:32548 [place] OFFICE/OUTPATIENT ESTABLISHED MOD MDM 30-39 MIN Normal [facility] PROF CHEM 8 (BAS METB)on Anion gap [Moles/Vol] 10.7 mmol/L Normal [facility] Comment on above: Performed By: #### TSH #### [facility] [address] [place] [address] [address] Yue Vega Calcium [Mass/Vol] 9.4 mg/dL Normal 8.5-10.1 [facility] Comment on above: Performed By: #### TSH #### [facility] [address] [place] [address] [address] Yue Vega Chloride [Moles/Vol] 97 mmol/L Critically low 98-107 [facility] Comment on above: Performed By: #### TSH #### [facility] [address] [place] [address] [address] Yue Vega CO2 [Moles/Vol] 31.8 mmol/L Normal 21.0-32.0 [facility] Comment on above: Performed By: #### TSH #### [facility] [address] [address] [address] Yue Vega Creatinine [Mass/Vol] 1.23 mg/dL Normal 0.70-1.30 [facility] Comment on above: Performed By: #### TSH #### [facility] [address] [address] [address] Yue Vega EGFR-AF PALESTINIAN >60 Normal >=60 [facility] Comment on above: Performed By: #### TSH #### [facility] [address] [place] [address] [address] Yue Vega EGFR-NON AF PALESTINIAN 56 mL/min/1.73m2 Critically low >=60 [facility] Comment on above: Performed By: #### TSH #### [facility] [address] [address] [address] Yue Vega Glucose [Mass/Vol] 153 mg/dL Critically high 74-106 [facility] Comment on above: Performed By: #### TSH #### [facility] [address] [address] [address] Yue Vega Potassium [Moles/Vol] 4.5 mmol/L Normal 3.5-5.1 [facility] Comment on above: Performed By: #### TSH #### [facility] [address] [address] [address] Yue Vega Sodium [Moles/Vol] 135 mmol/L Critically low 136-145 [facility] Comment on above: Performed By: #### TSH #### [facility] [address] [address] [address] Yue Vega Urea nitrogen [Mass/Vol] 22.0 mg/dL Critically high 7.0-18.0 [facility] Comment on above: Performed By: #### TSH #### [facility] [address] [address] [address] Yue Vega Urea nitrogen/Creatin ine [Mass ratio] 17.9 mg/mg Normal [facility] Comment on above: Performed By: #### TSH #### [facility] [address] [address] [address] Yue Vega Office Visiton 02-15-2023 Follow-up visit [id number] Edwin Orourke 1935 Date Provider Department Center 02/15/2023 [id number] LANG [facility] No family history on file Level of Service:22293 [place] OFFICE/OUTPATIENT ESTABLISHED MOD MDM 30-39 MIN Normal [facility] Creatinine (Bld) [Mass/Vol]O rdered By: Suzi Murray on 01-06-2023 Creatinine [Mass/Vol] 1.2 mg/dL 0.6-1.3 [facility] Comment on above: ER/ESD physician is notified/shown all I STAT results.Critical values may be confirmed by laboratory testing ifdeemed necessary by ER attending doctor. MR head/brain wo/w conon MR head/brain wo/w con [facility] [place] [address] [place] [address] MRI Report Signed Patient: Edwin Orourke MR#: [id number] : 1935 Acct:[id number] Age/Sex: 87 / M ADM Date: 01/06/23 Loc: MR Room: Type: [facility] Attending Dr: Jose Eduardo Murray DO Copies [...] Mamta Barrios M.D.01/06/2023 5:26 PM Dictation Location: [place] [address] Transcribed By: [facility] 01/06/231725 Dictated By: Mamta Barrios II, MD 01/06/231719 Signed By: 01/06/231725 Normal [facility] Office Visiton 12-28-2022 Follow-up visit [id number] Edwin Orourke 1935 M Date Provider Department Center 12/28/2022 120-DASHA, ЕЛЕНА BH CARD [facility] No family history on file Level of Service:95892 [place] OFFICE/OUTPATIENT ESTABLISHED MOD MDM 30-39 MIN Reason for Visit and Comments: Dizziness [966810] Fatigue [46] Normal [facility] BNPon 12-26-2022 Natriuretic peptide B (Bld) [Mass/Vol] 483.0 pg/mL Normal <=1,800.0 [facility] Comment on above: Performed By: #### TSH #### [facility] [address] [address] [address] Yue Vega CARDIAC MAMTA ADMITon 023 CK [Catalytic activity/Vol] 121 U/L Normal 39-308 [facility] Comment on above: Performed By: #### TSH #### [facility] [address] [place] [address] [address] Yue Vega CK.MB [Mass/Vol] 1.73 ng/mL Normal <=3.60 [facility] Comment on above: Performed By: #### TSH #### [facility] [address] [address] [address] Yue Vega HSTROP 11.9 pg/mL Normal 4.0-76.1 [facility] Comment on above: Result Comment: CUT-OFF POINTS HAVE BEEN ESTABLISHED BASED ON THE FOURTH UNIVERSAL DEFINITIONS OF MYOCARDIAL INFARCTION. THE UPPER REFERENCE LIMIT (URL) OF TROPONIN, DEFINED THE 99TH PERCENTILE OF cTnI DISTRIBUTION IN A REFERENCE POPULATION, HAS BEEN CONFIRMED THE DECISION THRESHOLD FOR PA DIAGNOSIS. Performed By: #### T SH #### [facility] [address] [place] [address] [address] Yue Vega CARI 113 ng/mL Critically high 16-96 [facility] Comment on above: Performed By: #### TSH #### [facility] [address] [address] [address] Yue Vega CBC AUTO DIFFon 12-26-2022 BASO # 0.1 103/ul Normal 0.0-0.1 [facility] Comment on above: Performed By: #### TSH #### [facility] [address] [place] [address] [address] Yue Vega Basophils/100 WBC (Bld) 0.5 % Normal 0.2-2.0 [facility] Comment on above: Performed By: #### TSH #### [facility] [address] [address] [address] Yue Vega EO # 0.0 103/ul Normal 0.0-0.7 [facility] Comment on above: Performed By: #### TSH #### [facility] [address] [place] [address] Dr. Yue Vega Eosinophils/100 WBC (Bld) 0.3 % Critically low 0.9-7.0 [facility] Comment on above: Performed By: #### TSH #### [facility] [address] [place] [address] Dr. Yue Vega Erythrocyte distribution width (RBC) [Ratio] 12.4 % Normal 11.0-15.0 [facility] Comment on above: Performed By: #### TSH #### [facility] [address] [place] [address] Dr. Yue Vega Hematocrit (Bld) [Volume fraction] 42.7 % Normal 42.0-54.0 [facility] Comment on above: Performed By: #### TSH #### [facility] [address] [place] [address] Dr. Yue Vega Hemoglobin (Bld) [Mass/Vol] 14.5 g/dL Normal 14.0-18.0 [facility] Comment on above: Performed By: #### TSH #### [facility] [address] [address] [address] Yue Vega IG # 0.05 10e3/ul Critically high 0.00-0.03 [facility] Comment on above: Performed By: #### TSH #### [facility] [address] [place] [address] [address] Yue Vega IG % 0.4 % Normal 0.0-0.5 [facility] Comment on above: Performed By: #### TSH #### [facility] [address] [place] [address] Dr. Yue Vega LYMPH # 1.4 103/ul Normal 1.2-3.8 [facility] Comment on above: Performed By: #### TSH #### [facility] [address] [place] [address] Dr. Yue Vega Lymphocytes/100 WBC (Bld) 10.7 % Critically low 20.5-60.0 [facility] Comment on above: Performed By: #### TSH #### [facility] [address] [place] [address] Dr. Yue Vega MANUAL DIFF REQ NO Normal [facility] Comment on above: Performed By: #### TSH #### [facility] [address] [place] [address] Dr. Yue Vega MCH (RBC) [Entitic mass] 30.7 pg Normal 25.9-34.0 [facility] Comment on above: Performed By: #### TSH #### [facility] [address] [place] [address] Dr. Yue Vega MCHC (RBC) [Mass/Vol] 34.0 g/dL Normal 29.9-35.2 [facility] Comment on above: Performed By: #### TSH #### [facility] [address] [place] [address] Dr. Yue Vega MCV (RBC) [Entitic vol] 90.3 fL Normal 80.0-94.0 [facility] Comment on above: Performed By: #### TSH #### [facility] [address] [place] [address] Dr. Yue Vega MONO # 0.5 103/ul Normal 0.3-0.8 [facility] Comment on above: Performed By: #### TSH #### [facility] [address] [place] [address] Dr. Yue Vega Monocytes/100 WBC (Bld) 4.2 % Normal 1.7-12.0 [facility] Comment on above: Performed By: #### TSH #### [facility] [address] [place] [address] Dr. Yue Vega NEUT # 10.8 103/ul Critically high 1.4-6.5 [facility] Comment on above: Performed By: #### TSH #### [facility] [address] [place] [address] Dr. Yue Vega Neutrophils/100 WBC (Bld) 83.9 % Critically high 43.0-75.0 [facility] Comment on above: Performed By: #### TSH #### [facility] [address] [place] [address] Dr. Yue Vega Platelet mean volume (Bld) [Entitic vol] 9.6 fL Normal 9.5-13.5 [facility] Comment on above: Performed By: #### TSH #### [facility] [address] [place] [address] Dr. Yue Vega PLT 223 103/ul Normal 150-450 [facility] Comment on above: Performed By: #### TSH #### [facility] [address] [place] [address] Dr. Yue Vega RBC 4.73 106/ul Normal 4.70-6.10 [facility] Comment on above: Performed By: #### TSH #### [facility] [address] [place], [place] [address] Dr. Yue Vega WBC 12.9 103/ul Critically high 4.0-11.0 [facility] Comment on above: Performed By: #### TSH #### [facility] [address] [place] [address] HEAD WO CONon [...] SUZI NANCE Date: 2022-12-26 14:21 Normal [facility] ER URINE PROFILEon 3 Bilirubin Ql (U) Negative Normal NEGATIVE [facility] Comment on above: Performed By: #### DEEJAY LOBO #### [facility] [address] [place] [address] Dr. Yue Vega Clarity (U) CLEAR Normal CLEAR [facility] Comment on above: Performed By: #### DEEJAY LOBO #### [facility] [address] [place] [address] Dr. Yue Vega Color (U) LT. YELLOW Normal YELLOW [facility] Comment on above: Performed By: #### DEEJAY LOBO #### [facility] [address] [place] [address] Dr. Yue MEYERD A micrscopic examina tion will be performed if indicated. Normal [facility] Comment on above: Performed By: #### SERG LOBORO #### [facility] [address] [place] [address] Dr. Yue Vega Glucose Ql (U) 250 mg/dl Abnormal NEGATIVE [facility] Comment on above: Performed By: #### SERG LOBORO #### [facility] [address] [place] [address] Dr. Yue Vega Hemoglobin Ql (U) Negative Normal NEGATIVE [facility] Comment on above: Performed By: #### YAMIL UMICRO #### [facility] [address] [place] [address] Dr. Yue Vega Ketones Ql (U) Negative Normal NEGATIVE [facility] Comment on above: Performed By: #### YAMIL UMICRO #### [facility] [address] [place] [address] Dr. Yue Vega LEUKOCYTES Negative Normal NEGATIVE [facility] Comment on above: Performed By: #### YAMIL UMICRO #### [facility] [address] [place] [address] Dr. Yue Vega Nitrite Ql (U) Negative Normal NEGATIVE [facility] Comment on above: Performed By: #### YAMIL UMICRO #### [facility] [address] [place] [address] Dr. Yue Vega pH (U) 7.0 [pH] Normal 5-9 [facility] Comment on above: Performed By: #### YAMIL UMICRO #### [facility] [address] [place] [address] Dr. Yue Vega Protein (U) [Mass/Vol] 30 mg/dL Abnormal NEGATIVE/ TRACE [facility] Comment on above: Performed By: #### YAMIL UMICRO #### [facility] [address] [place] [address] Dr. Yue Vega SPEC GRAVITY 1.015 Normal 1.005-<=1. 025 [facility] Comment on above: Performed By: #### YAMIL UMICRO #### [facility] [address] [place] [address] Dr. Yue Vega UR MICRO IND INDICATED Normal [facility] Comment on above: Performed By: #### YAMIL UMICRO #### [facility] [address] [place] [address] Dr. Yue Vega Urobilinogen Qn (U) 0.2 {Anat'U}/dL Normal 0.2 - 1.0 [facility] Comment on above: Performed By: #### YAMIL UMICRO #### [facility] [address] [place] [address] Dr. Yue Vega PROF 14(COMP METB)on 023 Albumin [Mass/Vol] 4.1 g/dL Normal 3.4-5.0 [facility] Comment on above: Performed By: #### TSH #### [facility] [address] [place] [address] Dr. Yue Vega Albumin/Globulin [Mass ratio] 1.1 {ratio} Normal [facility] Comment on above: Performed By: #### TSH #### [facility] [address] [place] [address] Dr. Yue Vega ALP [Catalytic activity/Vol] 110 U/L Normal 46-116 [facility] Comment on above: Performed By: #### TSH #### [facility] [address] [place] [address] Dr. Yue Vega ALT [Catalytic activity/Vol] 24 U/L Normal 16-63 [facility] Comment on above: Performed By: #### TSH #### [facility] [address] [place] [address] Dr. Yue Vega Anion gap [Moles/Vol] 9.5 mmol/L Normal [facility] Comment on above: Performed By: #### TSH #### [facility] [address] [place] [address] Dr. Yue Vega AST [Catalytic activity/Vol] 25 U/L Normal 15-37 [facility] Comment on above: Performed By: #### TSH #### [facility] [address] [place] [address] Dr. Yue Vega Bilirubin [Mass/Vol] 1.2 mg/dL Critically high 0.2-1.0 [facility] Comment on above: Performed By: #### TSH #### [facility] [address] [place] [address] Dr. Yue Vega Calcium [Mass/Vol] 9.3 mg/dL Normal 8.5-10.1 [facility] Comment on above: Performed By: #### TSH #### [facility] [address] [address] [address] Yue Vega Chloride [Moles/Vol] 96 mmol/L Critically low 98-107 [facility] Comment on above: Performed By: #### TSH #### [facility] [address] [address] [address] Yue Vega CO2 [Moles/Vol] 29.4 mmol/L Normal 21.0-32.0 [facility] Comment on above: Performed By: #### TSH #### [facility] [address] [address] [address] Yue Vega Creatinine [Mass/Vol] 1.09 mg/dL Normal 0.70-1.30 [facility] Comment on above: Performed By: #### TSH #### [facility] [address] [place] [address] Dr. Yue Vega EGFR-AF PALESTINIAN >60 Normal >=60 [facility] Comment on above: Performed By: #### TSH #### [facility] [address] [address] [address] Yue Vega EGFR-NON AF PALESTINIAN >60 Normal >=60 [facility] Comment on above: Performed By: #### TSH #### [facility] [address] [address] [address] Yue Vega Globulin (S) [Mass/Vol] 3.8 g/dL Normal [facility] Comment on above: Performed By: #### TSH #### [facility] [address] [address] [address] Yue Vega Glucose [Mass/Vol] 218 mg/dL Critically high 74-106 [facility] Comment on above: Performed By: #### TSH #### [facility] [address] [address] [address] Yue Vega Potassium [Moles/Vol] 3.9 mmol/L Normal 3.5-5.1 [facility] Comment on above: Performed By: #### TSH #### [facility] [address] [address] [address] Yue Vega Protein [Mass/Vol] 7.9 g/dL Normal 6.4-8.2 [facility] Comment on above: Performed By: #### TSH #### [facility] [address] [place] [address] Dr. Yue Vega Sodium [Moles/Vol] 131 mmol/L Critically low 136-145 [facility] Comment on above: Performed By: #### TSH #### [facility] [address] [place] [address] Dr. Yue Vega Urea nitrogen [Mass/Vol] 19.0 mg/dL Critically high 7.0-18.0 [facility] Comment on above: Performed By: #### TSH #### [facility] [address] [place] [address] Dr. Yue Vega Urea nitrogen/Creatin ine [Mass ratio] 17.4 mg/mg Normal [facility] Comment on above: Performed By: #### TSH #### [facility] [address] [place] [address] Dr. Yue Vega PROTIMEon 12-26-2022 INR Coag (PPP) [Relative time] 1.00 {INR} Normal [facility] Comment on above: Performed By: #### PTT, PT #### [facility] [address] [place] [address] Dr. Yue Vega INR GUIDELINES SEE BELOW Normal [facility] Comment on above: Result Comment: DESIRED INR: 2.0 - 3.0 C ONDITIONS NOT LISTED BELOW 2.5 - 3.5 FOR PROSTHETIC HEART VALVE REPLACEMENT 2.5 - 3.5 RECURRENT THROMBOSIS Performed By: #### P TT, PT #### [facility] [address] [place] [address] Dr. Yue Vega PT Coag (PPP) [Time] 10.6 s Normal 9.0-11.6 [facility] Comment on above: Performed By: #### PTT, PT #### [facility] [address] [place] [address] Dr. Yue Vega PTTon 12-26-2022 aPTT Coag (Bld) [Time] 29.8 s Normal 22.3-36.2 [facility] Comment on above: Performed By: #### PTT, PT #### [facility] [address] [place] [address] Dr. Yue Vega TSHon 12-26-2022 TSH 2.693 uIU/mL Normal 0.358-3.74 0 [facility] Comment on above: Performed By: #### TSH #### [facility] [address] [place] [address] Dr. Yue Vega URINE MICROSCOPIC ONLYon BACTERIA NONE SEEN Normal NONE SEEN [facility] Comment on above: Performed By: #### YAMIL, UMICRO #### [facility] [address] [place] [address] Dr. Yue Vega Bacteria identified Cx Nom (U) NOT INDICATED Normal [facility] Comment on above: Performed By: #### YAMIL, UMICRO #### [facility] [address] [place] [address] Dr. Yue Vega CAST NONE SEEN Normal NONE SEEN [facility] Comment on above: Performed By: #### YAMIL UMICRO #### [facility] [address] [place] [address] Dr. Yue Vega Crystals LM Nom (Urine sed) NONE SEEN Normal NONE SEEN [facility] Comment on above: Performed By: #### YAMIL UMICRO #### [facility] [address] [place] [address] Dr. Yue Vega Epithelial cells LM Ql (Urine sed) NONE SEEN Normal NONE SEEN /RARE [facility] Comment on above: Performed By: #### YAMIL UMICRO #### [facility] [address] [place] [address] Dr. Yue Vega MUCOUS NONE SEEN Normal NONE SEEN [facility] Comment on above: Performed By: #### YAMIL UMICRO #### [facility] [address] [place] [address] Dr. Yue Vega RBC 0-2 Normal 0-2 [facility] Comment on above: Performed By: #### YAMIL UMICRO #### [facility] [address] [place] [address] Dr. Yue Vega WBC NONE SEEN Normal NONE SEEN [facility] Comment on above: Performed By: #### DEEJAY LOBO #### [facility] [address] [address] [address] Yue Vega XR CHEST 1 Von [...] SAYRA GUILLAUME Date: 2022-12-26 13:12 Normal [facility] METHYLMALONIC ACID (MMA)on 0 12-25-2022 Methylmalonic Acid, Serum 180 nmol/L Normal 0-378 [facility] Comment on above: Performed By: #### MMA2 #### [facility] [address] [address] [address] Yue Vega TSHon 12-21-2022 TSH 2.790 uIU/mL Normal 0.358-3.74 0 [facility] Comment on above: Performed By: #### TSH #### [facility] [address] [address] [address] Yue Vega VITAMIN B12on 12-21-2022 Cobalamin (Vitamin B12) [Mass/Vol] 919.0 pg/mL Normal 193.0-986. 0 [facility] Comment on above: Performed By: #### TSH #### [facility] [address] [address] [address] Yue Vega CBC AUTO DIFFon 09-26-2022 BASO # 0.1 103/ul Normal 0.0-0.1 [facility] Comment on above: Performed By: #### CBC #### [facility] [address] [place] [address] Dr. Yue Vega Basophils/100 WBC (Bld) 0.5 % Normal 0.2-2.0 [facility] Comment on above: Performed By: #### CBC #### [facility] [address] [address] [address] Yue Vega EO # 0.2 103/ul Normal 0.0-0.7 [facility] Comment on above: Performed By: #### CBC #### [facility] [address] [place] [address] Dr. Yue Vega Eosinophils/100 WBC (Bld) 2.1 % Normal 0.9-7.0 [facility] Comment on above: Performed By: #### CBC #### [facility] [address] [place] [address] Dr. Yue Vega Erythrocyte distribution width (RBC) [Ratio] 12.3 % Normal 11.0-15.0 [facility] Comment on above: Performed By: #### CBC #### [facility] [address] [place] [address] Dr. Yue Vega Hematocrit (Bld) [Volume fraction] 42.0 % Normal 42.0-54.0 [facility] Comment on above: Performed By: #### CBC #### [facility] [address] [place] [address] Dr. Yue Vega Hemoglobin (Bld) [Mass/Vol] 13.9 g/dL Critically low 14.0-18.0 [facility] Comment on above: Performed By: #### CBC #### [facility] [address] [place] [address] Dr. Yue Vega IG # 0.03 10e3/ul Normal 0.00-0.03 [facility] Comment on above: Performed By: #### CBC #### [facility] [address] [place] [address] Dr. Yue Vega IG % 0.3 % Normal 0.0-0.5 [facility] Comment on above: Performed By: #### CBC #### [facility] [address] [place] [address] Dr. Yue Vega LYMPH # 1.9 103/ul Normal 1.2-3.8 [facility] Comment on above: Performed By: #### CBC #### [facility] [address] [place] [address] Dr. Yue Vega Lymphocytes/100 WBC (Bld) 19.8 % Critically low 20.5-60.0 [facility] Comment on above: Performed By: #### CBC #### [facility] [address] [place] [address] Dr. Yue Vega MANUAL DIFF REQ NO Normal [facility] Comment on above: Performed By: #### CBC #### [facility] [address] [place] [address] Dr. Yue Vega MCH (RBC) [Entitic mass] 30.5 pg Normal 25.9-34.0 [facility] Comment on above: Performed By: #### CBC #### [facility] [address] [place] [address] Dr. Yue Vega MCHC (RBC) [Mass/Vol] 33.1 g/dL Normal 29.9-35.2 [facility] Comment on above: Performed By: #### CBC #### [facility] [address] [place] [address] Dr. Yue Vega MCV (RBC) [Entitic vol] 92.3 fL Normal 80.0-94.0 [facility] Comment on above: Performed By: #### CBC #### [facility] [address] [place] [address] Dr. Yue Vega MONO # 0.9 103/ul Critically high 0.3-0.8 [facility] Comment on above: Performed By: #### CBC #### [facility] [address] [place] [address] Dr. Yue Vega Monocytes/100 WBC (Bld) 9.5 % Normal 1.7-12.0 [facility] Comment on above: Performed By: #### CBC #### [facility] [address] [address] [address] Yue Vega NEUT # 6.4 103/ul Normal 1.4-6.5 [facility] Comment on above: Performed By: #### CBC #### [facility] [address] [address] [address] Yue Vega Neutrophils/100 WBC (Bld) 67.8 % Normal 43.0-75.0 [facility] Comment on above: Performed By: #### CBC #### [facility] [address] [address] [address] Yue Vega Platelet mean volume (Bld) [Entitic vol] 9.4 fL Critically low 9.5-13.5 [facility] Comment on above: Performed By: #### CBC #### [facility] [address] [address] [address] Yue Vega PLT 264 103/ul Normal 150-450 [facility] Comment on above: Performed By: #### CBC #### [facility] [address] [address] [address] Yue Vega RBC 4.55 106/ul Critically low 4.70-6.10 [facility] Comment on above: Performed By: #### CBC #### [facility] [address] [address] [address] Yue Vega WBC 9.4 103/ul Normal 4.0-11.0 [facility] Comment on above: Performed By: #### CBC #### [facility] [address] [place] [address] Dr. Yue Vega GLYCOHEMOGLOBIN A1Con 2021 ADA RECOMMENDATION SEE BELOW Normal [facility] Comment on above: Result Comment: ADA RECOMMENDED LIMIT 4. 0 - 6.0 ADA THERAPEUTIC TARGET < 7.0 ACTION SUGGESTED > 7.0 Performed By: #### A 1C #### [facility] [address] [address] [address] Yue Vega Glucose [Mass/Vol] 169 mg/dL Normal [facility] Comment on above: Performed By: #### A1C #### [facility] [address] [address] [address] Yue Vega HbA1c (Bld) [Mass fraction] 7.5 % Critically high 4.5-6.2 [facility] Comment on above: Performed By: #### A1C #### [facility] [address] [address] [address] Yue Vega LIPID PROFILEon 09-26-2022 CHOL-HDL RATIO NORM SEE BELOW Normal [facility] Comment on above: Result Comment: 3.3 - 4.4 LOW RISK 4.4 - 7.1 AVERAGE RISK 7.1 - 11.0 MODERATE RISK >11.0 HIGH RISK Performed By: #### T SH #### [facility] [address] [address] [address] Yue Vega Cholesterol [Mass/Vol] 134 mg/dL Normal <=200 [facility] Comment on above: Performed By: #### TSH #### [facility] [address] [address] [address] Yue Vega Cholesterol in HDL [Mass/Vol] 51 mg/dL Normal 40-60 [facility] Comment on above: Performed By: #### TSH #### [facility] [address] [address] [address] Yue Vega Cholesterol in LDL [Mass/Vol] 63.4 mg/dL Normal [facility] Comment on above: Performed By: #### TSH #### [facility] [address] [address] [address] Yue Vega Cholesterol.tota l/Cholesterol in HDL [Mass ratio] 2.6 {ratio} Normal [facility] Comment on above: Performed By: #### TSH #### [facility] [address] [address] [address] Yue Vega HDL NORMAL > or = 60 mg/dl - LO W CARDIOVASCULAR RISK <40 mg/dl - HIGH CARDIOVASCULAR RISK Normal [facility] Comment on above: Performed By: #### TSH #### [facility] [address] [address] [address] Yue Vega LDL CALC NORMAL SEE BELOW Normal [facility] Comment on above: Result Comment: <100 mg/dl OPTIMAL 100 - 129 mg/dl NEAR OR ABOVE OPTIMAL 130 - 159 mg/dl BORDERLINE HIGH 160 - 189 mg/dl HIGH >190 mg/dl VERY HIGH Performed By: #### T SH #### [facility] [address] [address] [address] Yue Vega Triglyceride [Mass/Vol] 98 mg/dL Normal <=150 [facility] Comment on above: Performed By: #### TSH #### [facility] [address] [place] [address] Dr. Yue Vega VLDL CALC 19.6 mg/dL Normal [facility] Comment on above: Performed By: #### TSH #### [facility] [address] [address] [address] Yue Vega LIVER PROFILEon 09-26-2022 Albumin [Mass/Vol] 3.8 g/dL Normal 3.4-5.0 [facility] Comment on above: Performed By: #### LIPID, BMP, LIVER ### # [facility] [address] [place] [address] Dr. Yue Vega Albumin/Globulin [Mass ratio] 0.9 {ratio} Normal [facility] Comment on above: Performed By: #### LIPID, BMP, LIVER ### # [facility] [address] [place] [address] Dr. Yue Vega ALP [Catalytic activity/Vol] 94 U/L Normal 46-116 [facility] Comment on above: Performed By: #### LIPID, BMP, LIVER ### # [facility] [address] [place] [address] Dr. Yue Vega ALT [Catalytic activity/Vol] 34 U/L Normal 16-63 [facility] Comment on above: Performed By: #### LIPID, BMP, LIVER ### # [facility] [address] [place] [address] Dr. Yue Vega AST [Catalytic activity/Vol] 30 U/L Normal 15-37 [facility] Comment on above: Performed By: #### LIPID, BMP, LIVER ### # [facility] [address] [place] [address] Dr. Yeu Veag BILI, CONJUGATED 0.2 mg/dL Normal 0.0-0.2 [facility] Comment on above: Performed By: #### LIPID, BMP, LIVER ### # [facility] [address] [place] [address] Dr. Yue Vega Bilirubin [Mass/Vol] 0.9 mg/dL Normal 0.2-1.0 [facility] Comment on above: Performed By: #### LIPID, BMP, LIVER ### # [facility] [address] [place] [address] Dr. Yue Vega Globulin (S) [Mass/Vol] 4.2 g/dL Normal [facility] Comment on above: Performed By: #### LIPID, BMP, LIVER ### # [facility] [address] [place] [address] Dr. Yue Vega Protein [Mass/Vol] 8.0 g/dL Normal 6.4-8.2 [facility] Comment on above: Performed By: #### LIPID, BMP, LIVER ### # [facility] [address] [place] [address] Dr. Yue Vega MICROALBUMIN, RAND URon 09-15 mALB 16.8 mg/L Normal <=30.0 [facility] Comment on above: Performed By: #### ERUR, UMICRO #### [facility] [address] [place] [address] Dr. Yue Vega PROF CHEM 8 (BAS METB)on Anion gap [Moles/Vol] 12.2 mmol/L Normal [facility] Comment on above: Performed By: #### TSH #### [facility] [address] [place] [address] Dr. Yue Vega Calcium [Mass/Vol] 9.4 mg/dL Normal 8.5-10.1 [facility] Comment on above: Performed By: #### TSH #### [facility] [address] [place] [address] Dr. Yue Vega Chloride [Moles/Vol] 99 mmol/L Normal 98-107 [facility] Comment on above: Performed By: #### TSH #### [facility] [address] [address] [address] Yue Vega CO2 [Moles/Vol] 32.1 mmol/L Critically high 21.0-32.0 [facility] Comment on above: Performed By: #### TSH #### [facility] [address] [address] [address] Yue Vega Creatinine [Mass/Vol] 1.19 mg/dL Normal 0.70-1.30 [facility] Comment on above: Performed By: #### TSH #### [facility] [address] [address] [address] Yue Vega EGFR-AF PALESTINIAN >60 Normal >=60 [facility] Comment on above: Performed By: #### TSH #### [facility] [address] [place] [address] Dr. Yue Vega EGFR-NON AF PALESTINIAN 58 mL/min/1.73m2 Critically low >=60 [facility] Comment on above: Performed By: #### TSH #### [facility] [address] [address] [address] Yue Vega Glucose [Mass/Vol] 158 mg/dL Critically high 74-106 [facility] Comment on above: Performed By: #### TSH #### [facility] [address] [address] [address] Yue Vega Potassium [Moles/Vol] 4.3 mmol/L Normal 3.5-5.1 [facility] Comment on above: Performed By: #### TSH #### [facility] [address] [address] [address] Yue Vega Sodium [Moles/Vol] 139 mmol/L Normal 136-145 [facility] Comment on above: Performed By: #### TSH #### [facility] [address] [address] [address] Yue Vega Urea nitrogen [Mass/Vol] 24.0 mg/dL Critically high 7.0-18.0 [facility] Comment on above: Performed By: #### TSH #### [facility] [address] [address] [address] Yue Vega Urea nitrogen/Creatin ine [Mass ratio] 20.2 mg/mg Normal [facility] Comment on above: Performed By: #### TSH #### [facility] [address] [address] [address] Yue Vega XR wrist LT min 3V*on 2021 XR wrist LT min 3V* [place] [address] XRay Report Signed Patient: Edwin Orourke MR#: [id number] : 1935 Acct:[id number] Age/Sex: 87 / M ADM Date: 09/05/22 Loc: XDUC Room: Type: [facility] [address] Attending Dr: Sanaz ALEX Copies to: SANAZ CAMPO Ordering Provider: ASNAZ CAMPO Date of Service: 09/05/22 XR/XR wrist [...] Rene Jr., D.O.09/05/2022 5:57 PM Dictation Location: [place] [address] Transcribed By: [facility] 09/05/221756 Dictated By: Albert Rene Jr, 09/05/221756 Signed By: 09/05/221756 Normal [facility] XR wrist LT min 3V* [facility] [employer] Other XR wrist LT min 3V* [facility] [employer] Other XR wrist LT min 3V* [address] [place] [address] [employer] Other XR wrist LT min 3V* [place] [id number] [employer] Other XR wrist LT min 3V* XRay Report [employer] Other XR wrist LT min 3V* Signed [employer] Other XR wrist LT min 3V* Patient: Edwin Orourke MR#: [id number] [employer] Other XR wrist LT min 3V* [id number] [employer] Other XR wrist LT min 3V* : 1935 Acct:[id number] [employer] Other XR wrist LT min 3V* Age/Sex: 87 / M ADM Date: 09/05/22 [employer] Other XR wrist LT min 3V* Loc: XDUCLY Room: Type: [facility] [address] [employer] Other XR wrist LT min 3V* [facility]: [facility]o [facility] [employer] Other XR wrist LT min 3V* Copies to: SANAZ CAMPO [employer] Other XR wrist LT min 3V* Ordering Provider[facility] [employer] Other XR wrist LT min 3V* Date of Service: 09/05/22 [employer] Other XR wrist LT min 3V* XR/XR wrist LT min 3V*: Injury of left wrist, initial encounter [employer] Other XR wrist LT min 3V* LEFT WRIST - 4 views [employer] Other XR wrist LT min 3V* CLINICAL HISTORY: Fall this morning. Now with left wrist pain. [employer] Other XR wrist LT min 3V* COMPARISON: None [employer] Other XR wrist LT min 3V* FINDINGS: [employer] Other XR wrist LT min 3V* No focal soft tissue abnormality. Vascular calcifications. No acute bony process is seen. [employer] Other XR wrist LT min 3V* Degenerative changes involving the carpus, worst at the CMC joint of the thumb. [employer] Other XR wrist LT min 3V* XR/XR wrist LT min 3V* [employer] Other XR wrist LT min 3V* IMPRESSION: [employer] Other XR wrist LT min 3V* NO ACUTE BONY PROCESS. [employer] Other XR wrist LT min 3V* Impression dictated by: Albert Rene Jr., D.OMarli09/05/2022 5:57 PM [employer] Other XR wrist LT min 3V* Dictation Location: [place] [address] [employer] Other XR wrist LT min 3V* Transcribed By: MEGAN 09/05/22 [facility] [employer] Other XR wrist LT min 3V* Dictated By: Albert Rene Jr, DO 09/05/22 [facility] [employer] Other XR wrist LT min 3V* Signed By: [employer] Other XR wrist LT min 3V* 09/05/22 [facility] [employer] Other GLYCOHEMOGLOBIN A1Con 2021 ADA RECOMMENDATION SEE BELOW Normal [facility] Comment on above: Result Comment: ADA RECOMMENDED LIMIT 4. 0 - 6.0 ADA THERAPEUTIC TARGET < 7.0 ACTION SUGGESTED > 7.0 Performed By: #### A 1C #### [facility] [address] [place] [address] Dr. Yue Vega Glucose [Mass/Vol] 154 mg/dL Normal [facility] Comment on above: Performed By: #### A1C #### [facility] [address] [place], [place] [address] Dr. Yue Vega HbA1c (Bld) [Mass fraction] 7.0 % Critically high 4.5-6.2 [facility] Comment on above: Performed By: #### A1C #### [facility] [address] [place], [place] [address] Dr. Yue Vega Cardiovascular Lab Reporton 05-30-2018 Cardiovascular Lab Report [id number] Physician: Devendra Hood M.D.Medicine Service Date: 05/29/2018Division of Birthdate: 1935Cardiology Room #: 3CD [id number] [facility] [address] [place], [place] [address] Fax Cardiovascular Laboratory ReportINDICATION: Edwin Orourke is an 83-year-old man with history ofhypertension, hyperlipidemia, and diabetes. [facility] typical unstable angina. He thenhad [...] signed informed consent. 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 Tiago's testwas favorable. Access in the left radial artery was obtained usingultrasound guidance and micropuncture technique. A 6-[place] x 11 cmHydrophilic sheath was left. Verapamil was given through the sheath andheparin was administered intravenously. Bilateral selective coronaryangiography was then performed using 6-[place] JL4 for engagement of theleft coronary artery and a 6-[place] JR4 followed by a 6-[place] ALIREZA catheterfor engagement of the right coronary artery. Catheters were removed.Therapeutic ACT confirmed during the procedure and additional heparin givenas needed. A 6-[place] XB 3.5 guiding catheter was advanced and [...] 11 atmospheres and post dilated using NCQuantum Calvin 2.5 x 8 mm noncompliant balloon inflated [...] 11atmospheres and post dilated using NC Quantum Calvin 2.5 x 15 mm noncompliantballoon inflated at 18 atmospheres throughout the length of the stent.Angiography was performed. Intracoronary nitroglycerin was administered.It was decided to deploy an additional stent distal to the previouslydeployed stent. This was a Synergy 2.25 x 12 mm stent, deployed at 11atmospheres and post dilated using NC Quantum Calvin 2.5 x 15 mm noncompliantballoon inflated at [...] 05/29/2018/01:20 P/Devendra Flores M.D.Date Trans: 05/30/2018 11:47 A/[email or web address]:[id number]: Deep Velasquez D.O. [address] [facility] [address] [facility] [address] Ramon Martines M.D. [address] [facility] [address] Normal [facility] POC GLUCOSE LABon 05-30-2018 Glucose mass conc 121 mg/dL High 70-100 [facility] Comment on above: Performed By: #### [id number] ####[facility] [address], [facility] POC GLUCOSE LABon 05-29-2018 Glucose mass conc 126 mg/dL High 70-100 [facility] Comment on above: Performed By: #### [id number] ####[facility] [place] [address], [facility] Glucose mass conc 127 mg/dL High 70-100 [facility] Comment on above: Performed By: #### [id number] ####[facility] [place] [address], [facility] Vital Signs Date Time Vital Sign Value Performing Clinician Facility 12-01-2023 09:23-0500 Blood Pressure Location Deven [facility] 12-01-2023 09:23-0500 Diastolic blood pressure 63 mm[Hg] [facility] of [facility] 12-01-2023 09:23-0500 Heart rate 60 /min Deven BUTLER [facility] 12-01-2023 09:23-0500 Respiratory rate 16 /min Deven BUTLER [facility] 12-01-2023 09:23-0500 Systolic blood pressure 111 mm[Hg] Deven BUTLER [facility] 09-05-2022 17:40-0500 Body height 180.34 cm Sanaz Campo Other [employer] Other 09-05-2022 17:40-0500 Body mass index (BMI) [Ratio] 27.89 kg/m2 Sanaz Campo Other [facility] Other 09-05-2022 17:40-0500 Body temperature 97.6 [degF] Sanaz Campo Other [employer] [facility] Other 09-05-2022 17:40-0500 Body weight 90.72 kg Sanaz Campo Other [employer] Other 09-05-2022 17:40-0500 Diastolic blood pressure 63 mm[Hg] Sanaz Campo Other [employer] Other 09-05-2022 17:40-0500 Respiratory rate 16 /min Sanaz Campo Other [employer] Other 09-05-2022 17:40-0500 SaO2% (BldA) [Mass fraction] 97 % Sanaz Campo Other [employer] [facility] Other 09-05-2022 17:40-0500 Systolic blood pressure 153 mm[Hg] Sanaz Campo Other [employer] Other Encounters Encounter Date Encounter Type Care Provider Facility Start: 12-01-2023 End: 12-02-2023 ambulatory Deven BUTLER Facility:[facility] Start: 12-01-2023 End: 12-01-2023 Patient encounter procedure Deven BUTLER [facility] Start: 11-21-2023 End: 11-21-2023 ambulatory [facility] Start: 11-06-2023 End: 11-07-2023 ambulatory Deven BUTLER Facility:[facility] Start: 10-11-2023 End: 10-11-2023 ambulatory ЕЛЕНА [facility] Start: 10-02-2023 ambulatory [facility] Start: 10-02-2023 End: 10-02-2023 ambulatory [facility] Start: 08-22-2023 End: 08-22-2023 ambulatory [facility] Start: 04-26-2023 End: 04-26-2023 ambulatory [facility] Start: 03-24-2023 End: 03-24-2023 ambulatory Ramon Martines Facility:[facility] Start: 03-14-2023 End: 03-14-2023 ambulatory [facility] Start: 02-16-2023 End: 02-17-[address] DOCTOR NAGEL Facility:[facility] Start: 02-15-2023 End: 02-15-2023 ambulatory SARAH TANISTEFAN [facility] Start: 01-06-2023 End: 01-06-2023 ambulatory Jose Eduardo Murray Facility:[facility] Start: 01-06-2023 End: 01-06-2023 ambulatory MD Ramon Martines Work Phone: [facility] Work Phone: Start: 01-06-2023 End: 01-06-2023 Patient encounter procedure MD Ramon Martines Work Phone: [facility] Work Phone: Start: 12-28-2022 End: 12-28-2022 ambulatory ЕЛЕНА DASHA [facility] Start: 12-26-2022 End: 12-26-2022 ambulatory GONZÁLEZ HADDAD . 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 Sanaz Campo Work Phone: [facility] Start: 09-05-2022 End: 09-05-2022 ambulatory FOUR SLIDE MACHINE OPERATOR-C Sanaz Campo Work Phone: [facility] Work Phone: Start: 09-05-2022 Office outpatient visit 15 minutes Sanaz Campo [facility] Start: 04-19-2022 End: 04-20-[address] RAMON MARTINES Facility:[facility] Start: 05-29-2018 End: 05-30-2018 Patient encounter PROVIDER UNKNOWN Facility:[facility] Start: 05-28-2018 End: 05-29-2018 Patient encounter DEFAULT PHYSICIAN Facility:[facility] Start: 05-20-2018 End: 05-21-2018 Patient encounter DEFAULT PHYSICIAN Facility:[facility] Procedures Date Procedure Procedure Detail Performing Clinician Start: 04-26-2023 Follow-up visit Follow-up JOAQUÍN SMITH Start: 01-06-2023 MRI of head MD Ramon chapman Work Phone: Start: 09-05-2022 Plain X-ray of left wrist FOUR SLIDE MACHINE OPERATOR-C Sanaz Campo Work Phone: Appendectomy Deven BUTLER Arthroplasty of knee Deven BUTLER Extraction of cataract Mayra BUTLER Implantation of radioactive seed into prostate Deven BUTLER Placement of stent i n cardiac conduit Deven BUTLER Plan of Treatment Date Care Activity Detail Author [facility] Payers Date Payer Category Payer Self-pay 1957 Medicare [id number] 1957 Unknown [id number] 1937 Unknown [id number] 2.16.84 [id number] 1937 Unknown [id number] 2.16.84 [id number] 1937 Unknown [id number] 2.16.84 [id number] 1937 Unknown [id number] 2.16.84 [id number] 1937 Unknown [id number] 2.16.84 [id number] 1937 Unknown [id number] 2.16.84 [id number] 1937 Unknown [id number] 2.16.8 [id number] 1937 Unknown [id number] 2.16.8 [id number] Medicare [id number] Unknown Unknown [id number] 2.16.8 [id number] Unknown [id number] 2.16.8 [id number] Unknown [id number] 2.16.8 [id number] Social History Date Type Detail Facility Tobacco smoking stat [facility] Unknown if ever smoked [facility] Work Phone: Start: 1935 Sex Assigned At Male F [facility] Sex Assigned At [facility] Start: 03-02-2020 Tobacco smoking status Never s moked tobacco (finding) [facility] Functional Status Date Assessment Result Facility 12-01-2023 Functional Status N/A [facility] [place] Clinical Notes 09-05-2022 to 12-01-2023 Note Date & Type Note Facility 12-01-2023 Hospital Discharge instructions Patient Education 12/01/2023 09:58:03 Urinary Incontinence Urinary Incontinence Urinary incontinence refers to a condition in which a person is unable to control where and when to pass urine. A person with this condition will urinate involuntarily. This means that the person urinates when he or she does not mean to. What are the causes? This condition may be caused by: Medicines. Infections. Constipation. Overactive bladder muscles. Weak bladder muscles. Weak pelvic floor muscles. These muscles provide support for the bladder, intestine, and, in women, the uterus. Enlarged prostate in men. The prostate is a gland near the bladder. When it gets too big, it can pinch the urethra. With the urethra blocked, the bladder can weaken and lose the ability to empty properly. Surgery. Emotional factors, such as anxiety, stress, or post-traumatic stress disorder (PTSD). Spinal cord injury, nerve injury, or other neurological conditions. Pelvic organ prolapse. This happens in women when organs move out of place and into the vagina. This movement can prevent the bladder and urethra from working properly. What increases the risk? The following factors may make you more likely to develop this condition: Age. The older you are, the higher the risk. Obesity. Being physically inactive. and childbirth. Menopause. Diseases that affect the nerves or spinal cord. Long-term, or chronic, coughing. This can increase pressure on the bladder and pelvic floor muscles. What are the signs or symptoms? Symptoms may vary depending on the type of urinary incontinence you have. They include: A sudden urge to urinate, and passing urine involuntarily before you can get to a bathroom (urge incontinence). Suddenly passing urine when doing activities that force urine to pass, such as coughing, laughing, exercising, or sneezing (stress incontinence). Needing to urinate often but urinating only a small amount, or constantly dribbling urine (overflow incontinence). Urinating because you cannot get to the bathroom in time due to a physical disability, such as arthritis or injury, or due to a communication or thinking problem, such as Alzheimer's disease (functional incontinence). How is this diagnosed? This condition may be diagnosed based on: Your medical history. A physical exam. Tests, such as: ?Urine tests. ?X-rays of your kidney and bladder. ?Ultrasound. ?CT scan. ?Cystoscopy. In this procedure, a health care provider inserts a tube with a light and camera (cystoscope) through the urethra and into the bladder to check for problems. ?Urodynamic testing. These tests assess how well the bladder, urethra, and sphincter can store and release urine. There are different types of urodynamic tests, and they vary depending on what the test is measuring. To help diagnose your condition, your health care provider may recommend that you keep a log of when you urinate and how much you urinate. How is this treated? Treatment for this condition depends on the type of incontinence that you have and its cause. Treatment may include: Lifestyle changes, such as: ?Quitting smoking. ?Maintaining a healthy weight. ?Staying active. Try to get 150 minutes of moderate-intensity exercise every week. Ask your health care provider which activities are safe for you. ?Eating a healthy diet. ?Avoid high-fat foods, like fried foods. ?Avoid refined carbohydrates like white bread and white rice. ?Limit how much alcohol and caffeine you drink. ?Increase your fiber intake. Healthy sources of fiber include beans, whole grains, and fresh fruits and vegetables. Behavioral changes, such as: ?Pelvic floor muscle exercises. ?Bladder training, such as lengthening the amount of time between bathroom breaks, or using the bathroom at regular intervals. ?Using techniques to suppress bladder urges. This can include distraction techniques or controlled breathing exercises. Medicines, such as: ?Medicines to relax the bladder muscles and prevent bladder spasms. ?Medicines to help slow or prevent the growth of a man's prostate. ?Botox injections. These can help relax the bladder muscles. Treatments, such as: ?Using pulses of electricity to help change bladder reflexes (electrical nerve stimulation). ?For women, using a medical leader to prevent urine leaks. This is a small, tampon-like, disposable device that is inserted into the urethra. ?Injecting collagen or carbon beads (bulking agents) into the urinary sphincter. These can help thicken tissue and close the bladder opening. ?Surgery. Follow these instructions at home: Lifestyle Limit alcohol and caffeine. These can fill your bladder quickly and irritate it. Keep yourself clean to help prevent odors and skin damage. Ask your health care provider about special skin creams and cleansers that can protect the skin from urine. Consider wearing pads or adult diapers. Make sure to change them regularly, and always change them right after experiencing incontinence. General instructions Take [id number]-[id number] and prescription medicines only as told by your health care provider. Use the bathroom about every 3 4 hours, even if you do not feel the need to urinate. Try to empty your bladder completely every time. After urinating, wait a minute. Then try to urinate again. Make sure you are in a relaxed position while urinating. If your incontinence is caused by nerve problems, keep a log of the medicines you take and the times you go to the bathroom. Keep all follow-up visits. This is important. Where to find more information National [place] of Diabetes and Digestive and Kidney Diseases: www.niddk.nih.gov [place] [employer]: www.urologyhealth.org Contact a health care provider if: You have pain that gets worse. Your incontinence gets worse. Get help right away if: You have a fever or chills. You are unable to urinate. You have redness in your groin area or down your legs. Summary Urinary incontinence refers to a condition in which a person is unable to control where and when to pass urine. This condition may be caused by medicines, infection, weak bladder muscles, weak pelvic floor muscles, enlargement of the prostate (in men), or surgery. Factors such as older age, obesity, and childbirth, menopause, neurological diseases, and chronic coughing may increase your risk for developing this condition. Types of urinary incontinence include urge incontinence, stress incontinence, overflow incontinence, and functional incontinence. This condition is usually treated first with lifestyle and behavioral changes, such as quitting smoking, eating a healthier diet, and doing regular pelvic floor exercises. Other treatment options include medicines, bulking agents, medical devices, electrical nerve stimulation, or surgery. This information is not intended to replace advice given to you by your health care provider. Make sure you discuss any questions you have with your health care provider. Document Revised: 05/07/2021 Document Reviewed: 05/07/2021 [employer] Patient Education 2022 [employer]. Follow Up Care 08/25/2023 10:52:16 With:MÓNICA STEPHENSON, Deven Zimmerman, URL Address: [address] [place] [address]- When: Unknown [facility] 10-11-2023 Note Stable s/p Dual chamber PPM [facility] 10-11-2023 Note Stable s/p Dual chamber PPM [facility] 10-11-2023 Note Pt presents for 1 we ek wound check s/p recent [employer] dual PPM implant for SSS/ bradycardia Incision site well approximated, healing well without s/s of infection [facility] 10-11-2023 Note UTP CARDIOLOGY PROGR ESS NOTE [...] PROCEDURE: 10/02/23 PERFORMING PHYSICIAN: Dr. Mike Hilario SHIP RIGGER APPRENTICE: Dr Lana Powell CONSENT: Patient LOCATION: EP Lab PROCEDURE PERFORMED: 1. Implantation of pacemaker ([employer]) 2. Ultrasound guided venous access INDICATIONS: 1. Sinus node dysfunction. 2. Bradycardia No echocardiogram results found for the past 12 months Assessment/Plan: Cardiac pacemaker in situ Pt presents for 1 week wound check s/p recent [employer] dual PPM implant for SSS/ bradycardia Incision site well approximated, healing well without s/s of infection Sinus node dysfunction (CMS/HCC) Stable s/p Dual chamber PPM Sinus bradycardia Stable s/p Dual chamber PPM RTC 1 month with device rep [facility] 10-02-2023 Note DUAL CHAMBER PACEMAK ER IMPLANT PROCEDURE NOTE DATE OF PROCEDURE: 10/02/23 PERFORMING PHYSICIAN: Dr. Mike Hilario SHIP RIGGER APPRENTICE: Dr Lana Powell CONSENT: Patient LOCATION: EP Lab PROCEDURE PERFORMED: 1. Implantation of pacemaker ([employer]) 2. Ultrasound guided venous access INDICATIONS: [...] discontinued due to having ER visit with [facility] for complaints of dizziness and was [...] using modified seldinger technique using a 5 [place] micro-puncture needle on two occasions and 0.35 [...] for the device above the muscle. 6 [place] Safesheaths were placed over the wire. An active fixation [employer] pacing lead was then delivered through the 6Fsheath to the right ventricle. After confirmation of lead position on orthogonal views (GRAVES and MALAY) to confirm septal position, the screw was activated, and the lead was placed in the right ventricular mid cavity towards the septum. After confirmation of good sensing parameters, injury pattern and pacing thresholds, 10V pacing was done and no diaphragmatic stimulation was noted. It was then secured in the pocket using three 1-0 Silk sutures. Then an active fixation [employer] lead was delivered through the 6Fsheath to the right atrial appendage. After confirmation of lead position on orthogonal views (GRAVES and MALAY), the screw was activated. Good sensing parameters, [...] No driving for (more content not included)... [facility] 10-02-2023 Note Patient: Edwin rutherford Procedure Information Date/Time: 10/02/23 1230 Procedure: Pacemaker DC new Location: [facility] B[facility]LE [facility] 1 / [facility] (Cath) Providers: Mike Hilario MD Clinical information reviewed: Allergies Meds Physical Exam Airway Mallampati: II TM distance: >3 FB Neck ROM: full Cardiovascular Dental Pulmonary Abdominal Anesthesia Plan ASA 2 CSE Anesthetic plan and risks discussed with patient. Use of blood products discussed with patient who. Additional Equipment Requests [facility] 08-22-2023 Note [place] Electrophysiology Note Reason for visit: bradycardia Date of Telehealth Visit: 08/22/23 The patient was notified that using 3rd constitution party telecommunication application (e.g., [facility]) is not HIPPA compliant and may carry some privacy risks. Yes The visit was conducted [id number] with the use of audio and video technology Trini. between patient and provider for a virtual [...] discontinued due to having ER visit with [facility] for complaints of dizziness and was found to be bradycardic. Since stopping he has been fairly asymptomatic with no complaints of lightheadedness, dizziness, fatigue. He was also found to have AF , new onset in 2017. He was prescribed xarelto but was too [...] ECG 05/04/2018: Atrial fibrillation, possible old septal PA. ECG 05/28/2018 showed sinus rhythm with 1st degree AV block and PAC. Possible anteroseptal PA. ECG today 03/21/2019: sinus rhythm with 1st [...] Cardio Basic Cardiovascular (more content not included)... [facility] 04-26-2023 Note [place] Electrophysiology Note Reason for [...] PACs. 05/04/2018: Atrial fibrillation, possible old septal PA. 05/28/2018 showed sinus rhythm with 1st degree AV block and PAC. Possible anteroseptal PA. - 02/2023 HPI: Edwin Orourke is a 88 y.o. year old Was referred to EP clinic for bradycardia. He was recommended followed by his neurology group as he was found to be bradycardic with a pulse of 40 to 50s per his . In December 2022 had his metoprolol discontinued due to having ER visit with [facility] for complaints of dizziness and was [...] mid chest pain, was admitted to the [facility] and discharged the following day. He then went back and had a stress test on 05/17/2018 that showed large anterior ischemia with EF 64%. ECG 05/04/2018: Atrial fibrillation, possible old septal PA. ECG 05/28/2018 showed sinus rhythm with 1st degree AV block and PAC. Possible anteroseptal PA. Update 06/25/2018: He is seen after his [...] mid chest pain, was admitted to the [facility] and discharged the following day. He then went back and had a stress test on 05/17/2018 that showed large anterior ischemia with EF 64%. He says he never felt that before. Review of testing done during the [facility] admission showed mildl elevated of CK-MB, and elevated CK. His Tn showed a minimal rise but never reached cutoff for PA. CBC, BMP showed no anemia and normal renal function. He was also found to have AF , new onset not known before at the time of admission to [facility]. He was prescribed xarelto but was too expensive. He was given Brilinta 90 mg bid sample, and says that the medication will cost him a lot if he were to acquire it. I have reviewed the ECG done at [facility] and I think it showed SR. He has prior history of diabetes and hypertension on treatment. Since admission, he has been having angina with mild exertion. This is moderate in intensity. He has to stop activity for it to subside. ECG 05/04/2018: Atrial fibrillation, possible old septal PA. ECG 05/28/2018 showed sinus rhythm with 1st degree AV block and PAC. Possible anteroseptal PA. Update 06/25/2018: He is seen after his [...] reports one ep (more content not included)... [facility] 04-26-2023 Note Patient is here toda y for a 2 month follow up Review of Systems Constitutional: Positive for malaise/fatigue. Cardiovascular: Positive for dyspnea on exertion. Musculoskeletal: Positive for arthritis, back pain and joint pain. Neurological: Positive for light-headedness (when bending over). All other systems reviewed and are negative. [facility] 03-28-2023 Note - asymptomatic at th is time and during Holter monitor - for a treadmill stress test to rule out chronotropic incompetence/ SSS [facility] 03-28-2023 Note - CAD stable - continue aspirin [facility] 03-28-2023 Note - stable - continue aspirin 81 mg, lisinopril-hydrochlorothiazide 20-25 mg, hydralazine 25 mg 3 times daily Imdur 60 mg [facility] 03-14-2023 Note Patient here for fol low up Holter monitor to evaluate bradycardia per Sarah Wilson DNP. Denies chest pain. Still Review of Systems Constitutional: Positive for malaise/fatigue. Cardiovascular: Positive for dyspnea on exertion. Musculoskeletal: Positive for arthritis, back pain and joint pain. Neurological: Positive for light-headedness (when bending over). All other systems reviewed and are negative. [facility] 03-14-2023 Note [place] Electrophysiology Note Reason for [...] discontinued due to having ER visit with [facility] for complaints of dizziness and was [...] chest pain, shortness of breath, ALCARAZ, orthopnea --- Per dr. Flroes 12/2021 Previous note- follow up on CAD s/p stenting of LAD and Diagonal in 05/2018, hypertension. Visit of 05/28/2018: Mr Orourke is referred for chest pain and positive stress test. He is a 83 yo man who about 3 weeks ago went to bed and felt crushing mid chest pain, was admitted to the [facility] and discharged the following day. He then went back and had a stress test on 05/17/2018 that showed large anterior ischemia with EF 64%. ECG 05/04/2018: Atrial fibrillation, possible old septal PA. ECG 05/28/2018 showed sinus rhythm with 1st degree AV block and PAC. Possible anteroseptal PA. Update 06/25/2018: He is seen after his [...] mid chest pain, was admitted to the [facility] and discharged the following day. He then went back and had a stress test on 05/17/2018 that showed large anterior ischemia with EF 64%. He says he never felt that before. Review of testing done during the [facility] admission showed mildl elevated of CK-MB, and elevated CK. His Tn showed a minimal rise but never reached cutoff for PA. CBC, BMP showed no anemia and normal renal function. He was also found to have AF , new onset not known before at the time of admission to [facility]. He was prescribed xarelto but was too expensive. He was given Brilinta 90 mg bid sample, and says that the medication will cost him a lot if he were to acquire it. I have reviewed the ECG done at [facility] and I think it showed SR. He has prior history of diabetes and hypertension on treatment. Since admission, he has been having angina with mild exertion. This is moderate in intensity. He has to stop activity for it to subside. ECG 05/04/2018: Atrial fibrillation, possible old septal PA. ECG 05/28/2018 showed sinus rhythm with 1st degree AV block and PAC. Possible anteroseptal PA. Update 06/25/2018: He is seen after his [...] pressure is usu (more content not included)... [facility] 02-15-2023 Note Patient here to per neurology [...] All other systems reviewed and are negative. [facility] 02-15-2023 Note Cardiology Clinic No te Subjective [...] due to findings of bradycardia at the [facility] following presentation for evaluation of dizziness. is primary historian. She reports he has balance issues due to degenerative disk disease. He is unable to describe the symptoms he is experiencing, however denies recurrence of dizziness or lightheadedness. He does endorse feeling fatigued and overall poorly. Patient Active Problem List Diagnosis Coronary artery disease involving [place] coronary artery of [place] heart without angina pectoris Benign essential HTN Status post percutaneous transluminal coronary angioplasty Sinus bradycardia Vertigo Hyperlipidemia Gastroesophageal reflux disease Chest pain Type 2 diabetes mellitus without complication ([facility]) No family history on file. [...] mid chest pain, was admitted to the [facility] and discharged the following day. He then went back and had a stress test on 05/17/2018 that showed large anterior ischemia with EF 64%. He says he never felt that before. Review of testing done during the [facility] admission showed mildl elevated of CK-MB, and elevated CK. His Tn showed a minimal rise but never reached cutoff for PA. CBC, BMP showed no anemia and normal renal function. He was also found to have AF , new onset not known before at the time of admission to [facility]. He was prescribed xarelto but was too expensive. He was given Brilinta 90 mg bid sample, and says that the medication will cost him a lot if he were to acquire it. I have reviewed the ECG done at [facility] and I think it showed SR. He has prior history of diabetes and hypertension on treatment. Since admission, he has been having angina with mild exertion. This is moderate in intensity. He has to stop activity for it to subside. ECG 05/04/2018: Atrial fibrillation, possible old septal PA. ECG 05/28/2018 showed sinus rhythm with 1st degree AV block and PAC. Possible anteroseptal PA. Update 06/25/2018: He is seen after his [...] on Monday al (more content not included)... [facility] 12-28-2022 Note Hypertension is Stab le currently- Blood pressure log at home blood pressure is anywhere from 120-150/70-80- ER it was quite elevated 200/98 And hydralazine was added Orthostatic vitals were negative his blood pressure is actually lower lying than standing- He denied dizziness in office Continue all current meds [facility] 12-28-2022 Note Meclizine and follow -up with PCP He has followed up with neurology last week EKG 12/26/22- Sinus bradycardia with 1st degree AV block- 46 bpm ED summary 12/26/22 Vitals, B/P 200/98, HR 46, O2 sat 98% Pt was started also on hydralazine 25 mg tid. [facility] 12-28-2022 Note [facility] CARDIOLOGY PROGR ESS NOTE [...] mid chest pain, was admitted to the [facility] and discharged the following day. He then went back and had a stress test on 05/17/2018 that showed large anterior ischemia with EF 64%. ECG 05/04/2018: Atrial fibrillation, possible old septal PA. ECG 05/28/2018 showed sinus rhythm with 1st degree AV block and PAC. Possible anteroseptal PA. Update 06/25/2018: He is seen after his [...] less than 2 (more content not included)... [facility] 12-28-2022 Note Pt is here for dizzi ness pt states he been having Dizziness stated he when to the ER on Monday also states he is still having Dizziness but not as bad Review of Systems Constitutional: Positive for malaise/fatigue. Neurological: Positive for dizziness and light-headedness. All other systems reviewed and are negative. [facility] 12-28-2022 Note Concerning cardiac s ymptoms at this time continue goal-directed medical therapy continue risk factor modifications- heart healthy diet, regular exercise as tolerated and continue all medications. [facility] 09-05-2022 Evaluation note Encounter Date Diagnosis Assessment [...] care office for follow up on Monday [facility] [employer] Other Evaluation + Plan note No data available for this section [facility] evaluation noteNo assessment information available [facility] Work Phone: History general Narrative - Reported* Type Description Date Medical History diabetes mallitus Medical History high blood pressure Medical History high cholesterol Surgical History b/l knee 1999 [employer] [facility] [employer] Other Progress note No data available for this section [facility] Summary Purpose Family History No Family History Records FoundNo Family History Records FoundNo Family History Records FoundNo Family History Records Found No data available for this section No Family History Records Found Advance Directives No [...] and content) DATE CREATED AUTHOR 06/21/2018 [facility] DATE CREATED AUTHOR AUTHOR'S ORGANIZ ATION 02/23/2023 [facility] DATE CREATED AUTHOR AUTHOR'S ORGANIZ ATION 04/05/2023 [facility] DATE CREATED AUTHOR AUTHOR'S ORGANIZ ATION 11/22/2023 [facility] DATE CREATED AUTHOR AUTHOR'S ORGANIZ ATION 12/03/2023 [facility] Care Teams (unrecognized sec tion and content) Team Status: Inactive Member Role Status Dates ISAI Davis Attending Provider Active Team Status: Active Member Role Status Dates Ramon Martines MD Primary Care Provider Active Team Status: Inactive Member Role Status Dates Jose Eduardo Murray , Attending Provider Active Ramon Martines MD Primary Care Provider Active Goals (unrecognized section and content) Goals may be documented in a n alternate sectionNo InformationGoals may be documented in an alternate section No data available for this section REASON FOR VISIT (unrecogniz ed section [...] BE BASED ON THE PRIMARY CLINICAL RECORDS. [employer] [facility] provides no warranty or guarantee of the accuracy or completeness of information in this document.
[2023-12-05 10:08] LABS: Glucometer 143 mg/dL (74-106)
[2023-12-05 10:46] VITALS: BP 144/60; PULSE 70; RESP 18; O2SAT 92
[2023-12-05 10:47] VITALS: BP 131/60; PULSE 68; RESP 18; O2SAT 92
[2023-12-05] MEDS: BUPIVACAINE HCL 0.25% PF 25 MG/10 ML VIAL 2 ML INJ (10:55)
[2023-12-05] MEDS: IOHEXOL 240 MG/ML - 10 ML VIAL 24 MG INJ (10:55)
[2023-12-05] MEDS: 0.9 % SODIUM CHLORIDE 10 ML SYRINGE - SALINE FLUSH INJ (10:55)
[2023-12-05] MEDS: METHYLPREDNISOLONE ACETATE 80 MG/ML VIAL INJ (10:56)
[2023-12-05] MEDS: LIDOCAINE HCL 2% PF 100 MG/5 ML VIAL 4 ML INJ (10:56)
--- NOTE | 2023-12-05 11:05 | W.PM.PROCNOT ---
Date of procedure: 12/05/23 Pre-op diagnosis: Lumbar radiculopathy Post-op diagnosis: same as pre-op Procedure: Caudal Epidural Steroid Injection without catheter advancement Pre-operative diagnosis includes Radiculopathy, Postoperative diagnosis same, Under fluoroscopic guidance Solution used for the injection is Marcaine 0.25% Depo-Medrol 80 mg total of 5ml Omnipaque 3cc,3ml total, 1ml was used for injection to confirm needle tip placement within the epidural space. Anesthesia: local anesthesia using 2% lidocaine, total no more than 5 mL. Timeout process compliant After obtaining informed consent .the patient was brought to the procedure room .placed in the prone position . the area was prepped and draped in a sterile fashion utilizing betadine. 25 gauge needle was used to create a skin wheal over the sacral hiatus identified under fluoroscopy. 17 gauge touhy needle was inserted over the anesthetized area and directed to the kalispel hiatus under fluoroscopic guidance . after piercing the sacrococcygeal ligament. Confirmation of needle tip placement within the epidural space was accomplished with injection of contrast solution. epidural catheter was advanced to the L5 level .catheter placement confirmed with injection of contrast solution . the steroid solution was then injected .needle and catheter was removed post procedurally. patient transferred to recovery area in stable condition. Discharged home after meeting criteria. Anesthesia: Local Surgeon: Ericka Holden Condition: stable
== END 2023-12-05 11:02 | disposition home or self-care (01) ==
LOC: SURGOUT 09:44
PROVIDERS: PCP Family Medicine; Visit Provider Anesthesiology Pain Medicine
DX: M54.16 Radiculopathy, lumbar region (principal); Z79.84 Long term (current) use of oral hypoglycemic drugs
CPT/HCPCS: 36415; 62323; 82948; J0665; J1040; Q9966

== ENCOUNTER 2023-12-27 13:03 | Outpatient (OUT) | payer MEDICARE, OTHER, SELFPAY ==
--- OUTSIDE RECORDS SUMMARY | 2023-12-27 13:16 | XMS_ITS | CCD ---
Author Name Unknown Address [address] [place] [address] Organization [facility] Care Team Providers Care Supervisor Soakers Name Role Phone PHYSICIAN, DEFAULT Unavailable Unavailable PHYSICIAN, DEFAULT Unavailable Unavailable SNEHA, DEEP Unavailable Unavailable PHYSICIAN, DEFAULT Unavailable Unavailable PHYSICIAN, DEFAULT Unavailable Unavailable SNEHA, DEEP Unavailable Unavailable UNKNOWN, PROVIDER Unavailable Unavailable UNKNOWN, PROVIDER Unavailable Unavailable SNEHA, DEEP Unavailable Unavailable RAMON MARTINES Unavailable Unavailable ISAI Campo Attending Provider Sanaz Campo Unavailable DO Jose Eduardo Murray Attending Provider [phone] MD Ramon Martines Primary Care Provider BOBBI, [...] Attending Unavailable RAMON MARTINES Primary Care Physician [phone] Deven BUTLER Attending Unavailable Deven BUTLER Attending Unavailable Allergies Allergy Classification Reported Allergen(s) Allergy Type Date of Onset Reaction(s) Facility (1 source) 10423,00 Drug allergy (disorder) 11-15-2010 [facility] Repository Medications Current Medications Medication [...] 0 Start Date: 12/01/23 Status: Ordered Isosorbide Bomont itrate ER Active latanoprost (2 sources) Prostaglandin [...] procedure, # 2 tab(s), Refills(s) 0, Pharmacy: [facility], 177, cm, 12/01/23 9:25:00 EST, Height/Length [...] disease (6 sources) 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; Translations: [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] Onset: 05-29-2018 [...] Arthritis 03-02-2020 Chronic Other aftercare (1 source) skilled nursing (current) use of antithrombotics/antip latelets; Translations: [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 (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) USE OF ANTITHROMBOTICS/ANTIP LATELETS] Onset: 05-29-2018 Episodic Other aftercare (2 sources) skilled nursing (current) use of aspirin; Translations: [PENITENTIARY (CURRENT) USE OF ASPIRIN] Onset: 05-29-2018 Episodic Other aftercare (1 source) Other salvage determiner (current) drug therapy; Translations: [OTH SHEARER OPERATOR CURRENT DRUG THERAPY] Onset: 12-28-2022 Episodic Other aftercare (1 source) skilled nursing (current) use of oral hypoglycemic drugs; Translations: [PENITENTIARY USE ORAL HYPOGLYCEMIC DX] Onset: 12-28-2022 Episodic [...] / UNK(Unknown) Onset: 05-29-2018 Unclassified (1 source) skilled nursing (current) use of oral hypoglycemic drugs; Translations: [PENITENTIARY (CURRENT) USE OF ORAL HYPOGLYCEMIC DRUGS] Onset: [...] MÓNICA STEPHENSON, ANA MARIA Briscoe When: Where: [address] [place] [address]- Medications What How Much When Instructions Unchanged [...] uterus. ? (more content not included)... Normal [facility] Shelter Recordson 12-01 Shelter Records [id number]#1.00TIFF Normal [facility] Shelter Records [id number]#1.00TIFF [facility] Patient Educationon 12-01-19 Patient Education Urology [...] stimulation). ? For women, using a medical record clerk to prevent urine leaks. This is a [...] urine. ? (more content not included)... Normal [facility] RAD - MRI Reporton RAD - MRI Report [id number]#1.00TIFF Normal [facility] Urology Office/Clinic Noteon 12-01-2023 Urology Office/Clinic Note [...] urination but after he went to the [facility] on 10/17/23 the catheter was removed within [...] here with his today. Residing at [facility]. 1. History of prostate cancer (Z85.46: Personal history of malignant neoplasm of prostate) PSA: 02/06/20 - <0.05 Latest PSA on file. S/p brachytherapy approx. 20 years ago. 2. 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 [facility] staff has been providing pt with laxatives. reports pt has back issues. States the reason he is at [facility] is due to the inability to walk. [...] Contact Information MÓNICA STEPHENSON, Deven Zimmerman, [address] [place] [address]- Additional Instructions: Scheduling cysto and uro's Patient Education Urinary Incontinence I, Shena Taylor, personally scribed for Dr. Butler on 12/01/2023 10:07:45. Elect (more content not included)... [facility] Comment on above: Result Comment: Electronically Signed By : Deven BUTLER MD\.br\Date and Time Signed: 12/01/23 10:12 EST\.br\Electronically Co-Signed By: Shena Taylor.br\Date and Time Co-Signed: 12/01/23 10:08 EST Lab Reportson 10-18-2023 Lab Reports [id number]#1.00TIFF Normal [facility] Lab Reportson 10-17-2023 Lab Reports [id number]#1.00TIFF [facility] Lab Reports [id number]#1.00TIFF [facility] Lab Reports [id number]#1.00TIFF Normal [facility] Lab Reports [id number]#1.00TIFF [facility] Lab Reports [id number]#1.00TIFF [facility] Lab Reports [id number]#1.00TIFF Normal [facility] Lab Reports [id number]#1.00TIFF [facility] Lab Reports [id number]#1.00TIFF [facility] Lab Reports [id number]#1.00TIFF [facility] Office Visiton 10-11-2023 Follow-up visit [id number] Edwin Orourke 1935 [facility] Provider Department Center 10/11/2023 ЕЛЕНА SALMON [facility] No family history on file Level of Service:56992 [place] POSTOP FOLLOW UP VISIT RELATED TO ORIGINAL PX Normal [facility] HPon 10-02-2023 [facility] Electrophysiology Note Reason for visit: bradycardia HPI: [...] discontinued due to having ER visit with [facility] for complaints of dizziness and was [...] ECG 05/04/2018: Atrial fibrillation, possible old septal ND. ECG 05/28/2018 showed sinus rhythm with 1st degree AV block and PAC. Possible anteroseptal ND. ECG today 03/21/2019: sinus rhythm with 1st [...] alcohol abuse, Hematolog (more content not included)... [facility] NURSNOTEon 10-02-2023 NURSNOTE RN educated pt on d/ c instructions. RN encouraged pt to voice any questions or concerns. Pt verbalizes no questions or concerns at this time. Pt was wheeled off of unit with all of belongings. [facility] NURSNOTE CHG wipes and betadi ne nasal swabs completed. [facility] Orders Onlyon 10-02-2023 Orders Only [id number] Edwin Orourke 1935 M Date Provider Department [place] 10/02/2023 EMETERIO GONZALEZ [facility] No family history on file [facility] Orders Onlyon 09-25-2023 Orders Only [id number] Edwin Orourke 1935 M Date Provider Department Center 09/25/2023 EMETERIO GONZALEZ [facility] No family history on file [facility] Telemedicineon 08-22-2023 Telemedicine [id number] Edwin Orourke 1935 M Date Provider Department [place] 08/22/2023 MIKE CASTILLO CARD [facility] No family history on file Level of Service:29648 [place] PHYS/QHP TELEPHONE EVALUATION 11-20 MIN [facility] 36on 07-27-2023 36 No vm Normal [facility] Office Visiton 04-26-2023 Follow-up visit [id number] Edwin Orourke 1935 M Date Provider Department Center 04/26/2023 Ambrose-JOAQUÍN NELSON [facility]RI[facility] No family history on file Level of Service:64916 CA OFFICE/OUTPATIENT ESTABLISHED MOD MDM 30-39 MIN Reason for Visit and Comments: Follow-up [542314] - 2 month follow up Normal [facility] MR lumbar spine wo conon MR lumbar spine wo con [facility] [place] [address] MRI Report Signed Patient: Edwin Orourke MR#: [id number] : 1935 Acct:[id number] Age/Sex: 88 / M ADM Date: 03/24/23 Loc: MR Room: Type: [facility] Attending Dr: Ramon Martines MD Copies [...] Mamta Barrios M.D.03/25/2023 2:26 PM Dictation Location: [place] [address] Transcribed By: [facility] 03/25/23 1426 Dictated By: Mamta Barrios II, MD 03/25/23 1419 Signed By: 03/25/23 1426 [facility] Orders Onlyon 03-15-2023 Orders Only [id number] Edwin Orourke 1935 M Date Provider Department Center 03/15/2023 Maame-YURY SANTOS CARD [facility] No family history on file [facility] Office Visiton 03-14-2023 Follow-up visit [id number] Edwin Orourke 1935 M Date Provider Department Center 03/14/2023 [facility] No family history on file Level of Service:19328 CA OFFICE/OUTPATIENT ESTABLISHED MOD MDM 30-39 MIN Normal [facility] PROF CHEM 8 (BAS METB)on Anion gap [Moles/Vol] 10.7 mmol/L Normal [facility] Comment on above: Performed By: #### TSH #### [facility] Laboratory [address] [place] [address] [address] Yue Vega Calcium [Mass/Vol] 9.4 mg/dL Normal 8.5-10.1 [facility] Comment on above: Performed By: #### TSH #### [facility] [address] [place] [address] [address] Yue Vega Chloride [Moles/Vol] 97 mmol/L Critically low 98-107 [facility] Comment on above: Performed By: #### TSH #### [facility] [address] [place] [address] [address] Yue Vega CO2 [Moles/Vol] 31.8 mmol/L Normal 21.0-32.0 [facility] Comment on above: Performed By: #### TSH #### [facility] [address] [address] [address] Yue Vega Creatinine [Mass/Vol] 1.23 mg/dL Normal 0.70-1.30 [facility] Comment on above: Performed By: #### TSH #### [facility] [address] [place] [address] [address] Yue Vega EGFR-AF GRENADIAN >60 Normal >=60 [facility] Comment on above: Performed By: #### TSH #### [facility] [address] [place] [address] [address] Yue Vega EGFR-NON AF GRENADIAN 56 mL/min/1.73m2 Critically low >=60 [facility] Comment on above: Performed By: #### TSH #### [facility] [address] [place] [address] [address] Yue Vega Glucose [Mass/Vol] 153 mg/dL Critically high 74-106 [facility] Comment on above: Performed By: #### TSH #### [facility] [address] [place] [address] [address] Yue Vega Potassium [Moles/Vol] 4.5 mmol/L Normal 3.5-5.1 [facility] Comment on above: Performed By: #### TSH #### [facility] [address] [place] [address] [address] Yue Vega Sodium [Moles/Vol] 135 mmol/L Critically low 136-145 [facility] Comment on above: Performed By: #### TSH #### [facility] [address] [place] [address] [address] Yue Vega Urea nitrogen [Mass/Vol] 22.0 mg/dL Critically high 7.0-18.0 [facility] Comment on above: Performed By: #### TSH #### [facility] [address] [address] [address] Yue Vega Urea nitrogen/Creatin ine [Mass ratio] 17.9 mg/mg Normal [facility] Comment on above: Performed By: #### TSH #### [facility] [address] [place] [address] [address] Yue Vega Office Visiton 02-15-2023 Follow-up visit [id number] Edwin Orourke 1935 Date Provider Department Center 02/15/2023 07850-[id number] LANG [facility] No family history on file Level of Service:21103 CA OFFICE/OUTPATIENT ESTABLISHED MOD MDM 30-39 MIN Normal [facility] Creatinine (Bld) [Mass/Vol]O rdered By: Suzi Murray on 01-06-2023 Creatinine [Mass/Vol] 1.2 mg/dL 0.6-1.3 [facility] Comment on above: ER/ESD physician is notified/shown all I STAT results.Critical values may be confirmed by laboratory testing ifdeemed necessary by ER attending doctor. MR head/brain wo/w conon MR head/brain wo/w con [facility] Main [place] [address] [place] [address] MRI Report Signed Patient: Edwin Orourke MR#: [id number] : 1935 Acct:[id number] Age/Sex: 87 / M ADM Date: 01/06/23 Loc: MR Room: Type: [facility] Attending Dr: Jose Eduardo Murray DO Copies [...] Mamta Barrios M.D.01/06/2023 5:26 PM Dictation Location: [place] [address] Transcribed By: [facility] 01/06/231725 Dictated By: Mamta Barrios II, MD 01/06/231719 Signed By: 01/06/231725 Normal [facility] Office Visiton 12-28-2022 Follow-up visit [id number] Edwin Orourke 1935 M Date Provider Department Center 12/28/2022 120-DASHA, ЕЛЕНА BH CARD [facility] No family history on file Level of Service:72301 CA OFFICE/OUTPATIENT ESTABLISHED MOD MDM 30-39 MIN Reason for Visit and Comments: Dizziness [467330] Fatigue [46] Normal [facility] BNPon 12-26-2022 Natriuretic peptide B (Bld) [Mass/Vol] 483.0 pg/mL Normal <=1,800.0 [facility] Comment on above: Performed By: #### TSH #### [facility] [address] [place] [address] [address] Yue Vega CARDIAC MAMTA ADMITon 023 CK [Catalytic activity/Vol] 121 U/L Normal 39-308 [facility] Comment on above: Performed By: #### TSH #### [facility] [address] [place] [address] [address] Yue Vega CK.MB [Mass/Vol] 1.73 ng/mL Normal <=3.60 [facility] Comment on above: Performed By: #### TSH #### [facility] [address] [place] [address] [address] Yue Vega HSTROP 11.9 pg/mL Normal 4.0-76.1 [facility] Comment on above: Result Comment: CUT-OFF POINTS HAVE BEEN ESTABLISHED BASED ON THE FOURTH UNIVERSAL DEFINITIONS OF MYOCARDIAL INFARCTION. THE UPPER REFERENCE LIMIT (URL) OF TROPONIN, DEFINED THE 99TH PERCENTILE OF cTnI DISTRIBUTION IN A REFERENCE POPULATION, HAS BEEN CONFIRMED THE DECISION THRESHOLD FOR ND DIAGNOSIS. Performed By: #### T SH #### [facility] [address] [address] [address] Yue Vega CARI 113 ng/mL Critically high 16-96 [facility] Comment on above: Performed By: #### TSH #### [facility] [address] [place] [address] [address] Yue Vega CBC AUTO DIFFon 12-26-2022 BASO # 0.1 103/ul Normal 0.0-0.1 [facility] Comment on above: Performed By: #### TSH #### [facility] [address] [address] [address] Yue Vega Basophils/100 WBC (Bld) 0.5 % Normal 0.2-2.0 [facility] Comment on above: Performed By: #### TSH #### [facility] [address] [place] [address] [address] Yue Vega EO # 0.0 103/ul Normal 0.0-0.7 [facility] Comment on above: Performed By: #### TSH #### [facility] [address] [place] [address] Dr. Yue Vega Eosinophils/100 WBC (Bld) 0.3 % Critically low 0.9-7.0 [facility] Comment on above: Performed By: #### TSH #### [facility] [address] [place] [address] Dr. Yue Vega Erythrocyte distribution width (RBC) [Ratio] 12.4 % Normal 11.0-15.0 [facility] Comment on above: Performed By: #### TSH #### [facility] [address] [place] [address] Dr. Yue Vega Hematocrit (Bld) [Volume fraction] 42.7 % Normal 42.0-54.0 [facility] Comment on above: Performed By: #### TSH #### [facility] [address] [place] [address] Dr. Yue Vega Hemoglobin (Bld) [Mass/Vol] 14.5 g/dL Normal 14.0-18.0 [facility] Comment on above: Performed By: #### TSH #### [facility] [address] [place] [address] [address] Yue Vega IG # 0.05 10e3/ul Critically high 0.00-0.03 [facility] Comment on above: Performed By: #### TSH #### [facility] [address] [place] [address] [address] Yue Vega IG % 0.4 % Normal 0.0-0.5 [facility] Comment on above: Performed By: #### TSH #### [facility] [address] [place] [address] Dr. Yue Vega LYMPH # 1.4 103/ul Normal 1.2-3.[address] [facility] Comment on above: Performed By: #### TSH #### [facility] [address] [place] [address] Dr. Yue Vega Lymphocytes/100 WBC (Bld) 10.7 % Critically low 20.5-60.[address] [facility] Comment on above: Performed By: #### TSH #### [facility] [address] [place] [address] Dr. Yue Vega MANUAL DIFF REQ NO Normal [facility] Comment on above: Performed By: #### TSH #### [facility] [address] [place] [address] Dr. Yue Vega MCH (RBC) [Entitic mass] 30.7 pg Normal 25.9-34.0 [facility] Comment on above: Performed By: #### TSH #### [facility] [address] [place] [address] Dr. Yue Vega MCHC (RBC) [Mass/Vol] 34.0 g/dL Normal 29.9-35.[address] [facility] Comment on above: Performed By: #### TSH #### [facility] [address] [place] [address] Dr. Yue Vega MCV (RBC) [Entitic vol] 90.3 fL Normal 80.0-94.[address] [facility] Comment on above: Performed By: #### TSH #### [facility] [address] [place] [address] Dr. Yue Vega MONO # 0.5 103/ul Normal 0.3-0.[address] [facility] Comment on above: Performed By: #### TSH #### [facility] [address] [place] [address] Dr. Yue Vega Monocytes/100 WBC (Bld) 4.2 % Normal 1.7-12.[address] [facility] Comment on above: Performed By: #### TSH #### [facility] [address] [place] [address] Dr. Yue Vega NEUT # 10.8 103/ul Critically high 1.4-6.5 [facility] Comment on above: Performed By: #### TSH #### [facility] [address] [place] [address] Dr. Yue Vega Neutrophils/100 WBC (Bld) 83.9 % Critically high 43.0-75.[address] [facility] Comment on above: Performed By: #### TSH #### [facility] [address] [place] [address] Dr. Yue Vega Platelet mean volume (Bld) [Entitic vol] 9.6 fL Normal 9.5-13.[address] [facility] Comment on above: Performed By: #### TSH #### [facility] [address] [place] [address] Dr. Yue Vega PLT 223 103/ul Normal 150-[address] [facility] Comment on above: Performed By: #### TSH #### [facility] [address] [place] [address] Dr. Yue Vega RBC 4.73 106/ul Normal 4.70-6.[address] [facility] Comment on above: Performed By: #### TSH #### [facility] [address] [place], [place] [address] Dr. Yue Vega WBC 12.9 103/ul Critically high 4.0-11.0 [facility] Comment on above: Performed By: #### TSH #### [facility] [address] [place] [address] HEAD WO CONon [...] SUZI NANCE Date: 2022-12-26 14:21 Normal [facility] ER URINE PROFILEon 3 Bilirubin Ql (U) Negative Normal NEGATIVE [facility] Comment on above: Performed By: #### DEEJAY LOBO #### [facility] [address] [place] [address] Dr. Yue Vega Clarity (U) CLEAR Normal CLEAR [facility] Comment on above: Performed By: #### DEEJAY LOBO #### [facility] [address] [place] [address] Dr. Yue Vega Color (U) LT. YELLOW Normal YELLOW [facility] Comment on above: Performed By: #### DEEJAY LOBO #### [facility] [address] [place] [address] Dr. Yue MEYERD A micrscopic examina tion will be performed if indicated. Normal [facility] Comment on above: Performed By: #### SERG LOBORO #### [facility] [address] [place] [address] Dr. Yue Vega Glucose Ql (U) 250 mg/dl Abnormal NEGATIVE [facility] Comment on above: Performed By: #### SERG LOBORO #### [facility] [address] [place] [address] Dr. Yue Vega Hemoglobin Ql (U) Negative Normal NEGATIVE [facility] Comment on above: Performed By: #### YAMIL UMICRO #### [facility] [address] [place] [address] Dr. Yue Vega Ketones Ql (U) Negative Normal NEGATIVE [facility] Comment on above: Performed By: #### YAMIL UMICRO #### [facility] [address] [place] [address] Dr. Yue Vega LEUKOCYTES Negative Normal NEGATIVE [facility] Comment on above: Performed By: #### YAMIL UMICRO #### [facility] [address] [place] [address] Dr. Yue Vega Nitrite Ql (U) Negative Normal NEGATIVE [facility] Comment on above: Performed By: #### YAMIL UMICRO #### [facility] [address] [place] [address] Dr. Yue Vega pH (U) 7.0 [pH] Normal 5-9 [facility] Comment on above: Performed By: #### YAMIL UMICRO #### [facility] [address] [place] [address] Dr. Yue Vega Protein (U) [Mass/Vol] 30 mg/dL Abnormal NEGATIVE/ TRACE [facility] Comment on above: Performed By: #### YAMIL UMICRO #### [facility] [address] [place] [address] Dr. Yue Vega SPEC GRAVITY 1.015 Normal 1.005-<=1. 025 [facility] Comment on above: Performed By: #### YAMIL UMICRO #### [facility] [address] [place] [address] Dr. Yue Vega UR MICRO IND INDICATED Normal [facility] Comment on above: Performed By: #### YAMIL UMICRO #### [facility] [address] [place] [address] Dr. Yue Vega Urobilinogen Qn (U) 0.2 {Anat'U}/dL Normal 0.2 - 1.0 [facility] Comment on above: Performed By: #### YAMIL UMICRO #### [facility] [address] [place] [address] Dr. Yue Vega PROF 14(COMP METB)on 023 Albumin [Mass/Vol] 4.1 g/dL Normal 3.4-5.0 [facility] Comment on above: Performed By: #### TSH #### [facility] [address] [place] [address] Dr. Yue Vega Albumin/Globulin [Mass ratio] 1.1 {ratio} Normal [facility] Comment on above: Performed By: #### TSH #### [facility] [address] [place] [address] Dr. Yue Vega ALP [Catalytic activity/Vol] 110 U/L Normal 46-116 [facility] Comment on above: Performed By: #### TSH #### [facility] [address] [place] [address] Dr. Yue Vega ALT [Catalytic activity/Vol] 24 U/L Normal 16-[address] [facility] Comment on above: Performed By: #### TSH #### [facility] [address] [place] [address] Dr. Yue Vega Anion gap [Moles/Vol] 9.5 mmol/L Normal [facility] Comment on above: Performed By: #### TSH #### [facility] [address] [place] [address] Dr. Yue Vega AST [Catalytic activity/Vol] 25 U/L Normal 15-[address] [facility] Comment on above: Performed By: #### TSH #### [facility] [address] [place] [address] Dr. Yue Vega Bilirubin [Mass/Vol] 1.2 mg/dL Critically high 0.2-1.[address] [facility] Comment on above: Performed By: #### TSH #### [facility] [address] [place] [address] Dr. Yue Vega Calcium [Mass/Vol] 9.3 mg/dL Normal 8.5-10.[address] [facility] Comment on above: Performed By: #### TSH #### [facility] [address] [address] [address] Yue Vega Chloride [Moles/Vol] 96 mmol/L Critically low 98-[address] [facility] Comment on above: Performed By: #### TSH #### [facility] [address] [address] [address] Yue Vega CO2 [Moles/Vol] 29.4 mmol/L Normal 21.0-32.0 [facility] Comment on above: Performed By: #### TSH #### [facility] [address] [address] [address] Yue Vega Creatinine [Mass/Vol] 1.09 mg/dL Normal 0.70-1.[address] [facility] Comment on above: Performed By: #### TSH #### [facility] [address] [place] [address] Dr. Yue Vega EGFR-AF GRENADIAN >60 Normal >=60 [facility] Comment on above: Performed By: #### TSH #### [facility] [address] [address] [address] Yue Vega EGFR-NON AF GRENADIAN >60 Normal >=[address] [facility] Comment on above: Performed By: #### TSH #### [facility] [address] [address] [address] Yue Vega Globulin (S) [Mass/Vol] 3.8 g/dL Normal [facility] Comment on above: Performed By: #### TSH #### [facility] [address] [address] [address] Yue Vega Glucose [Mass/Vol] 218 mg/dL Critically high 74-[address] [facility] Comment on above: Performed By: #### TSH #### [facility] [address] [address] [address] Yue Vega Potassium [Moles/Vol] 3.9 mmol/L Normal 3.5-5.[address] [facility] Comment on above: Performed By: #### TSH #### [facility] [address] [address] [address] Yue Vega Protein [Mass/Vol] 7.9 g/dL Normal 6.4-8.[address] [facility] Comment on above: Performed By: #### TSH #### [facility] [address] [place] [address] Dr. Yue Vega Sodium [Moles/Vol] 131 mmol/L Critically low 136-[address] [facility] Comment on above: Performed By: #### TSH #### [facility] [address] [place] [address] Dr. Yue Vega Urea nitrogen [Mass/Vol] 19.0 mg/dL Critically high 7.0-18.0 [facility] Comment on above: Performed By: #### TSH #### [facility] [address] [place] [address] Dr. Yue Vega Urea nitrogen/Creatin ine [Mass ratio] 17.4 mg/mg Normal [facility] Comment on above: Performed By: #### TSH #### [facility] [address] [place] [address] Dr. Yue Vega PROTIMEon 12-26-2022 INR Coag (PPP) [Relative time] 1.00 {INR} Normal [facility] Comment on above: Performed By: #### PTT, PT #### [facility] [address] [place] [address] Dr. Yue Vega INR GUIDELINES SEE BELOW Normal [facility] Comment on above: Result Comment: DESIRED INR: 2.0 - 3.0 C ONDITIONS NOT LISTED BELOW 2.5 - 3.5 FOR PROSTHETIC HEART VALVE REPLACEMENT 2.5 - 3.5 RECURRENT THROMBOSIS Performed By: #### P TT, PT #### [facility] [address] [place] [address] Dr. Yue Vega PT Coag (PPP) [Time] 10.6 s Normal 9.0-11.[address] [facility] Comment on above: Performed By: #### PTT, PT #### [facility] [address] [place] [address] Dr. Yue Vega PTTon 12-26-2022 aPTT Coag (Bld) [Time] 29.8 s Normal 22.3-36.[address] [facility] Comment on above: Performed By: #### PTT, PT #### [facility] [address] [place] [address] Dr. Yue Vega TSHon 12-26-2022 TSH 2.693 uIU/mL Normal 0.358-3.[address] [facility] Comment on above: Performed By: #### TSH #### [facility] [address] [place] [address] Dr. Yue Vega URINE MICROSCOPIC ONLYon BACTERIA NONE SEEN Normal NONE SEEN [facility] Comment on above: Performed By: #### YAMIL, UMICRO #### [facility] [address] [place] [address] Dr. Yue Vega Bacteria identified Cx Nom (U) NOT INDICATED Normal [facility] Comment on above: Performed By: #### YAMIL, UMICRO #### [facility] [address] [place] [address] Dr. Yue Vega CAST NONE SEEN Normal NONE SEEN [facility] Comment on above: Performed By: #### YAMIL UMICRO #### [facility] [address] [place] [address] Dr. Yue Vega Crystals LM Nom (Urine sed) NONE SEEN Normal NONE SEEN [facility] Comment on above: Performed By: #### YAMIL UMICRO #### [facility] [address] [place] [address] Dr. Yue Vega Epithelial cells LM Ql (Urine sed) NONE SEEN Normal NONE SEEN /RARE [facility] Comment on above: Performed By: #### YAMIL UMICRO #### [facility] [address] [place] [address] Dr. Yue Vega MUCOUS NONE SEEN Normal NONE SEEN [facility] Comment on above: Performed By: #### YAMIL UMICRO #### [facility] [address] [place] [address] Dr. Yue Vega RBC 0-2 Normal 0-[address] [facility] Comment on above: Performed By: #### YAMIL UMICRO #### [facility] [address] [place] [address] Dr. Yue Vega WBC NONE SEEN Normal NONE SEEN [facility] Comment on above: Performed By: #### DEEJAY LBOO #### [facility] [address] [address] [address] Yue Vega XR CHEST 1 Von [...] SAYRA GUILLAUME Date: 2022-12-26 13:12 Normal [address] [facility] METHYLMALONIC ACID (MMA)on 0 12-25-2022 Methylmalonic Acid, Serum 180 nmol/L Normal 0-[address] [facility] Comment on above: Performed By: #### MMA2 #### [facility] [address] [address] [address] Yue Vega TSHon 12-21-2022 TSH 2.790 uIU/mL Normal 0.358-3.74 0 [facility] Comment on above: Performed By: #### TSH #### [facility] [address] [address] [address] Yue Vega VITAMIN B12on 12-21-2022 Cobalamin (Vitamin B12) [Mass/Vol] 919.0 pg/mL Normal 193.0-986. 0 [facility] Comment on above: Performed By: #### TSH #### [facility] [address] [address] [address] Yue Vega CBC AUTO DIFFon 09-26-2022 BASO # 0.1 103/ul Normal 0.0-0.1 [facility] Comment on above: Performed By: #### CBC #### [facility] [address] [place] [address] Dr. Yue Vega Basophils/100 WBC (Bld) 0.5 % Normal 0.2-2.0 [facility] Comment on above: Performed By: #### CBC #### [facility] [address] [address] [address] Yue Vega EO # 0.2 103/ul Normal 0.0-0.7 [facility] Comment on above: Performed By: #### CBC #### [facility] [address] [place] [address] Dr. Yue Vega Eosinophils/100 WBC (Bld) 2.1 % Normal 0.9-7.0 [facility] Comment on above: Performed By: #### CBC #### [facility] [address] [place] [address] Dr. Yue Vega Erythrocyte distribution width (RBC) [Ratio] 12.3 % Normal 11.0-15.0 [facility] Comment on above: Performed By: #### CBC #### [facility] [address] [place] [address] Dr. Yue Vega Hematocrit (Bld) [Volume fraction] 42.0 % Normal 42.0-54.0 [facility] Comment on above: Performed By: #### CBC #### [facility] [address] [place] [address] Dr. Yue Vega Hemoglobin (Bld) [Mass/Vol] 13.9 g/dL Critically low 14.0-18.0 [facility] Comment on above: Performed By: #### CBC #### [facility] [address] [place] [address] Dr. Yue Vega IG # 0.03 10e3/ul Normal 0.00-0.03 [facility] Comment on above: Performed By: #### CBC #### [facility] [address] [place] [address] Dr. Yue Vega IG % 0.3 % Normal 0.0-0.5 [facility] Comment on above: Performed By: #### CBC #### [facility] [address] [place] [address] Dr. Yue Vega LYMPH # 1.9 103/ul Normal 1.2-3.8 [facility] Comment on above: Performed By: #### CBC #### [facility] [address] [place] [address] Dr. Yue Vega Lymphocytes/100 WBC (Bld) 19.8 % Critically low 20.5-60.0 [facility] Comment on above: Performed By: #### CBC #### [facility] [address] [place] [address] Dr. Yue Vega MANUAL DIFF REQ NO Normal [facility] Comment on above: Performed By: #### CBC #### [facility] [address] [place] [address] Dr. Yue Vega MCH (RBC) [Entitic mass] 30.5 pg Normal 25.9-34.0 [facility] Comment on above: Performed By: #### CBC #### [facility] [address] [place] [address] Dr. Yue Vega MCHC (RBC) [Mass/Vol] 33.1 g/dL Normal 29.9-35.2 [facility] Comment on above: Performed By: #### CBC #### [facility] [address] [place] [address] Dr. Yue Vega MCV (RBC) [Entitic vol] 92.3 fL Normal 80.0-94.0 [facility] Comment on above: Performed By: #### CBC #### [facility] [address] [place] [address] Dr. Yue Vega MONO # 0.9 103/ul Critically high 0.3-0.8 [facility] Comment on above: Performed By: #### CBC #### [facility] [address] [place] [address] Dr. Yue Vega Monocytes/100 WBC (Bld) 9.5 % Normal 1.7-12.0 [facility] Comment on above: Performed By: #### CBC #### [facility] [address] [address] [address] Yue Vega NEUT # 6.4 103/ul Normal 1.4-6.5 [facility] Comment on above: Performed By: #### CBC #### [facility] [address] [address] [address] Yue Vega Neutrophils/100 WBC (Bld) 67.8 % Normal 43.0-75.0 [facility] Comment on above: Performed By: #### CBC #### [facility] [address] [address] [address] Yue Vega Platelet mean volume (Bld) [Entitic vol] 9.4 fL Critically low 9.5-13.5 [facility] Comment on above: Performed By: #### CBC #### [facility] [address] [address] [address] Yue Vega PLT 264 103/ul Normal 150-[address] [facility] Comment on above: Performed By: #### CBC #### [facility] [address] [address] [address] Yue Vega RBC 4.55 106/ul Critically low 4.70-6.10 [facility] Comment on above: Performed By: #### CBC #### [facility] [address] [address] [address] Yue Vega WBC 9.4 103/ul Normal 4.0-11.[address] [facility] Comment on above: Performed By: #### CBC #### [facility] [address] [place] [address] Dr. Yue Vega GLYCOHEMOGLOBIN A1Con 2021 ADA RECOMMENDATION SEE BELOW Normal [facility] Comment on above: Result Comment: ADA RECOMMENDED LIMIT 4. 0 - 6.0 ADA THERAPEUTIC TARGET < 7.0 ACTION SUGGESTED > 7.0 Performed By: #### A 1C #### [facility] [address] [address] [address] Yue Vega Glucose [Mass/Vol] 169 mg/dL Normal [facility] Comment on above: Performed By: #### A1C #### [facility] [address] [address] [address] Yue Vega HbA1c (Bld) [Mass fraction] 7.5 % Critically high 4.5-6.2 [facility] Comment on above: Performed By: #### A1C #### [facility] [address] [address] [address] Yue Vega LIPID PROFILEon 09-26-2022 CHOL-HDL RATIO NORM SEE BELOW Normal [facility] Comment on above: Result Comment: 3.3 - 4.4 LOW RISK 4.4 - 7.1 AVERAGE RISK 7.1 - 11.0 MODERATE RISK >11.0 HIGH RISK Performed By: #### T SH #### [facility] [address] [address] [address] Yue Vega Cholesterol [Mass/Vol] 134 mg/dL Normal <=200 [facility] Comment on above: Performed By: #### TSH #### [facility] [address] [address] [address] Yue Vega Cholesterol in HDL [Mass/Vol] 51 mg/dL Normal 40-60 [facility] Comment on above: Performed By: #### TSH #### [facility] [address] [address] [address] Yue Vega Cholesterol in LDL [Mass/Vol] 63.4 mg/dL Normal [facility] Comment on above: Performed By: #### TSH #### [facility] [address] [address] [address] Yue Vega Cholesterol.tota l/Cholesterol in HDL [Mass ratio] 2.6 {ratio} Normal [facility] Comment on above: Performed By: #### TSH #### [facility] [address] [address] [address] Yue Vega HDL NORMAL > or = 60 mg/dl - LO W CARDIOVASCULAR RISK <40 mg/dl - HIGH CARDIOVASCULAR RISK Normal [facility] Comment on above: Performed By: #### TSH #### [facility] [address] [address] [address] Yue Vega LDL CALC NORMAL SEE BELOW Normal [facility] Comment on above: Result Comment: <100 mg/dl OPTIMAL 100 - 129 mg/dl NEAR OR ABOVE OPTIMAL 130 - 159 mg/dl BORDERLINE HIGH 160 - 189 mg/dl HIGH >190 mg/dl VERY HIGH Performed By: #### T SH #### [facility] [address] [address] [address] Yue Vega Triglyceride [Mass/Vol] 98 mg/dL Normal <=[address] [facility] Comment on above: Performed By: #### TSH #### [facility] [address] [place] [address] Dr. Yue Vega VLDL CALC 19.6 mg/dL Normal [facility] Comment on above: Performed By: #### TSH #### [facility] [address] [address] [address] Yue Vega LIVER PROFILEon 09-26-2022 Albumin [Mass/Vol] 3.8 g/dL Normal 3.4-5.0 [facility] Comment on above: Performed By: #### LIPID, BMP, LIVER ### # [facility] [address] [place] [address] Dr. Yue Vega Albumin/Globulin [Mass ratio] 0.9 {ratio} Normal [facility] Comment on above: Performed By: #### LIPID, BMP, LIVER ### # [facility] [address] [place] [address] Dr. Yue Vega ALP [Catalytic activity/Vol] 94 U/L Normal 46-[address] [facility] Comment on above: Performed By: #### LIPID, BMP, LIVER ### # [facility] [address] [place] [address] Dr. Yue Vega ALT [Catalytic activity/Vol] 34 U/L Normal 16-[address] [facility] Comment on above: Performed By: #### LIPID, BMP, LIVER ### # [facility] [address] [place] [address] Dr. Yue Vega AST [Catalytic activity/Vol] 30 U/L Normal 15-[address] [facility] Comment on above: Performed By: #### LIPID, BMP, LIVER ### # [facility] [address] [place] [address] Dr. Yue Vega BILI, CONJUGATED 0.2 mg/dL Normal 0.0-0.2 [facility] Comment on above: Performed By: #### LIPID, BMP, LIVER ### # [facility] [address] [place] [address] Dr. Yue Vega Bilirubin [Mass/Vol] 0.9 mg/dL Normal 0.2-1.[address] [facility] Comment on above: Performed By: #### LIPID, BMP, LIVER ### # [facility] [address] [place] [address] Dr. Yue Vega Globulin (S) [Mass/Vol] 4.2 g/dL Normal [facility] Comment on above: Performed By: #### LIPID, BMP, LIVER ### # [facility] [address] [place] [address] Dr. Yue Vega Protein [Mass/Vol] 8.0 g/dL Normal 6.4-8.[address] [facility] Comment on above: Performed By: #### LIPID, BMP, LIVER ### # [facility] [address] [place] [address] Dr. Yue Vega MICROALBUMIN, RAND URon 09-15 mALB 16.8 mg/L Normal <=30.[address] [facility] Comment on above: Performed By: #### ERUR, UMICRO #### [facility] [address] [place] [address] Dr. Yue Vega PROF CHEM 8 (BAS METB)on Anion gap [Moles/Vol] 12.2 mmol/L Normal [facility] Comment on above: Performed By: #### TSH #### [facility] [address] [place] [address] Dr. Yue Vega Calcium [Mass/Vol] 9.4 mg/dL Normal 8.5-10.[address] [facility] Comment on above: Performed By: #### TSH #### [facility] [address] [place] [address] Dr. Yue Vega Chloride [Moles/Vol] 99 mmol/L Normal 98-[address] [facility] Comment on above: Performed By: #### TSH #### [facility] [address] [address] [address] Yue Vega CO2 [Moles/Vol] 32.1 mmol/L Critically high 21.0-32.0 [facility] Comment on above: Performed By: #### TSH #### [facility] [address] [address] [address] Yue Vega Creatinine [Mass/Vol] 1.19 mg/dL Normal 0.70-1.[address] [facility] Comment on above: Performed By: #### TSH #### [facility] [address] [address] [address] Yue Vega EGFR-AF GRENADIAN >60 Normal >=60 [facility] Comment on above: Performed By: #### TSH #### [facility] [address] [place] [address] Dr. Yue Vega EGFR-NON AF GRENADIAN 58 mL/min/1.73m2 Critically low >=[address] [facility] Comment on above: Performed By: #### TSH #### [facility] [address] [address] [address] Yue Vega Glucose [Mass/Vol] 158 mg/dL Critically high 74-[address] [facility] Comment on above: Performed By: #### TSH #### [facility] [address] [address] [address] Yue Vega Potassium [Moles/Vol] 4.3 mmol/L Normal 3.5-5.[address] [facility] Comment on above: Performed By: #### TSH #### [facility] [address] [address] [address] Yue Vega Sodium [Moles/Vol] 139 mmol/L Normal 136-[address] [facility] Comment on above: Performed By: #### TSH #### [facility] [address] [address] [address] Yue Vega Urea nitrogen [Mass/Vol] 24.0 mg/dL Critically high 7.0-18.0 [facility] Comment on above: Performed By: #### TSH #### [facility] [address] [address] [address] Yue Vega Urea nitrogen/Creatin ine [Mass ratio] 20.2 mg/mg Normal [facility] Comment on above: Performed By: #### TSH #### [facility] [address] [address] [address] Yue Vega XR wrist LT min 3V*on 2021 XR wrist LT min 3V* [place] [address] XRay Report Signed Patient: Edwin Orourke MR#: [id number] : 1935 Acct:[id number] Age/Sex: 87 / M ADM Date: 09/05/22 Loc: XDUC Room: Type: [facility] Attending Dr: Sanaz ALEX Copies to: SANAZ [...] Rene Jr., D.O.09/05/2022 5:57 PM Dictation Location: [place] [address] Transcribed By: [facility] 09/05/221756 Dictated By: Albert Rene Jr, 09/05/221756 Signed By: 09/05/221756 Normal [facility] XR wrist LT min 3V* [facility] [employer] Other XR wrist LT min 3V* [facility] [employer] Other XR wrist LT min 3V* [address] [place] [address] [employer] Other XR wrist LT min 3V* [place] [id number] [employer] Other XR wrist LT min 3V* XRay Report [employer] Other XR wrist LT min 3V* Signed [employer] Other XR wrist LT min 3V* Patient: Edwin Orourke MR#: [id number] [employer] Other XR wrist LT min 3V* [id number] [employer] Other XR wrist LT min 3V* : 1935 Acct:[id number] [employer] Other XR wrist LT min 3V* Age/Sex: 87 / M ADM Date: 09/05/22 [employer] Other XR wrist LT min 3V* Loc: XDUCLY Room: Type: [facility] [employer] Other XR wrist LT min 3V* Attending Dr: Sanaz Campo [facility] [employer] Other XR wrist LT min 3V* Copies to: [employer] Other XR wrist LT min 3V* Ordering Provider: SA[facility]Z CAMPO [facility] [employer] Other XR wrist LT min 3V* Date of Service: 09/05/22 [employer] Other XR wrist LT min 3V* XR/XR wrist LT min 3V*: Injury of left wrist, initial encounter [employer] Other XR wrist LT min 3V* LEFT WRIST - 4 views [employer] Other XR wrist LT min 3V* CLINICAL HISTORY: Fall this morning. Now with left wrist pain. [employer] Other XR wrist LT min 3V* COMPARISON: None [employer] Other XR wrist LT min 3V* FINDINGS: [employer] Other XR wrist LT min 3V* No focal soft tissue abnormality. Vascular calcifications. No acute bony process is seen. [employer] Other XR wrist LT min 3V* Degenerative changes involving the carpus, worst at the CMC joint of the thumb. [employer] Other XR wrist LT min 3V* XR/XR wrist LT min 3V* [employer] Other XR wrist LT min 3V* IMPRESSION: [employer] Other XR wrist LT min 3V* NO ACUTE BONY PROCESS. [employer] Other XR wrist LT min 3V* Impression dictated by: Albert Rene Jr., D.OMarli09/05/2022 5:57 PM [employer] Other XR wrist LT min 3V* Dictation Location: [place] [address] [employer] Other XR wrist LT min 3V* Transcribed By: MEGAN 09/05/22 [facility] [employer] Other XR wrist LT min 3V* Dictated By: Albert Rene Jr, DO 09/05/22 [facility] [employer] Other XR wrist LT min 3V* Signed By: [employer] Other XR wrist LT min 3V* 09/05/22 [facility] [employer] Other GLYCOHEMOGLOBIN A1Con 2021 ADA RECOMMENDATION SEE BELOW Normal The [facility] Comment on above: Result Comment: ADA RECOMMENDED LIMIT 4. 0 - 6.0 ADA THERAPEUTIC TARGET < 7.0 ACTION SUGGESTED > 7.0 Performed By: #### A 1C #### [facility] [address] [place] [address] Dr. Yue Vega Glucose [Mass/Vol] 154 mg/dL Normal The [facility] Comment on above: Performed By: #### A1C #### [facility] [address] [place], [place] [address] Dr. Yue Vega HbA1c (Bld) [Mass fraction] 7.0 % Critically high 4.5-6.[address] [facility] Comment on above: Performed By: #### A1C #### [facility] [address] [place], [place] [address] Dr. Yue Vega Cardiovascular Lab Reporton 05-30-2018 Cardiovascular Lab Report [facility] [id number] Physician: Devendra Hood M.D.Medicine Service Date: 05/29/2018Division of Birthdate: 1935Cardiology Room #: 3CD [id number] [facility]Services[facility] [address] [place], [place] [address]Ryjdt Fax Cardiovascular Laboratory ReportINDICATION: Edwin Orourke is an 83-year-old man with history ofhypertension, hyperlipidemia, and diabetes. He recently presented to theemergency room in [facility] with typical unstable angina. He thenhad [...] signed informed consent. 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 Tiago's testwas favorable. Access in the left radial artery was obtained usingultrasound guidance and micropuncture technique. A 6-Polish x 11 cmHydrophilic sheath was left. Verapamil was given through the sheath andheparin was administered intravenously. Bilateral selective coronaryangiography was then performed using 6-Polish JL4 for engagement of theleft coronary artery and a 6-Polish JR4 followed by a 6-Polish ALIREZA catheterfor engagement of the right coronary artery. Catheters were removed.Therapeutic ACT confirmed during the procedure and additional heparin givenas needed. A 6-Polish XB 3.5 guiding catheter was advanced and [...] 11 atmospheres and post dilated using NCQuantum [place] 2.5 x 8 mm noncompliant balloon inflated [...] 11atmospheres and post dilated using NC Quantum [place] 2.5 x 15 mm noncompliantballoon inflated at 18 atmospheres throughout the length of the stent.Angiography was performed. Intracoronary nitroglycerin was administered.It was decided to deploy an additional stent distal to the previouslydeployed stent. This was a Synergy 2.25 x 12 mm stent, deployed at 11atmospheres and post dilated using NC Quantum [place] 2.5 x 15 mm noncompliantballoon inflated at [...] 05/29/2018/01:20 P/Devendra Flores M.D.Date Trans: 05/30/2018 11:47 A/johnathonoDN_[id number]: Deep Velasquez D.O. [address] [facility] [address] [facility] [address] Ramon Martines M.D. [address] [facility] [address] Normal The [facility] POC GLUCOSE LABon 05-30-2018 Glucose mass conc 121 mg/dL High 70-100 The [facility] Comment on above: Performed By: #### [id number] ####[facility] [place] [address], [facility] POC GLUCOSE LABon 05-29-2018 Glucose mass conc 126 mg/dL High 70-100 The [facility] Comment on above: Performed By: #### [id number] ####[facility] [place] [address], [facility] Glucose mass conc 127 mg/dL High 70-100 The [facility] Comment on above: Performed By: #### [id number] ####[facility] [place] [address], [facility] Vital Signs Date Time Vital Sign Value Performing Clinician Facility 12-01-2023 09:23-0500 Blood Pressure Location Deven BUTLER [facility] 12-01-2023 09:23-0500 Diastolic blood pressure 63 mm[Hg] Deven BUTLER [facility] 12-01-2023 09:23-0500 Heart rate 60 /min Deven BUTLER [facility] 12-01-2023 09:23-0500 Respiratory rate 16 /min Deven BUTLER [facility] 12-01-2023 09:23-0500 Systolic blood pressure 111 mm[Hg] Deven BUTLER [facility] 09-05-2022 17:40-0500 Body height 180.34 cm Sanaz Campo Other [employer] Other 09-05-2022 17:40-0500 Body mass index (BMI) [Ratio] 27.89 kg/m2 Sanaz Camp[facility] Other [employer] Other 09-05-2022 17:40-0500 Body temperature 97.6 [degF] Sanaz Campo Other [employer] Other 09-05-2022 17:40-0500 Body weight 90.72 kg Sanaz Campo Other [employer] Other 09-05-2022 17:40-0500 Diastolic blood pressure 63 mm[Hg] Sanaz Campo Other [employer] Other 09-05-2022 17:40-0500 Respiratory rate 16 /min Sanaz Campo Other [employer] Other 09-05-2022 17:40-0500 SaO2% (BldA) [Mass fraction] 97 % Sanaz Campo Other [employer] Other 09-05-2022 17:40-0500 Systolic blood pressure 153 mm[Hg] Sanaz Campo Other [employer] Other Encounters Encounter Date Encounter Type Care Provider Facility Start: 12-01-2023 End: 12-02-2023 ambulatory Deven BUTLER Facility:[facility] Start: 12-01-2023 End: 12-01-2023 Patient encounter procedure Deven BUTLER [facility] [place] Start: 11-21-2023 End: 11-21-2023 ambulatory [facility] [place] Start: 11-06-2023 End: 11-07-2023 ambulatory Deven BUTLER Facility:[facility] Start: 10-11-2023 End: 10-11-2023 ambulatory ЕЛЕНА [facility] Start: 10-02-2023 ambulatory [facility] [place] Start: 10-02-2023 End: 10-02-2023 ambulatory [facility] [place] Start: 08-22-2023 End: 08-22-2023 ambulatory [facility] [place] Start: 04-26-2023 End: 04-26-2023 ambulatory [facility] Start: 03-24-2023 End: 03-24-2023 ambulatory Ramon Martines Facility:[facility] Start: 03-14-2023 End: 03-14-2023 ambulatory [facility] Start: 02-16-2023 End: 02-17-[address] DOCTOR NAGEL Facility:[facility] Start: 02-15-2023 End: 02-15-2023 ambulatory SARAH TANISTEFAN [facility] Start: 01-06-2023 End: 01-06-2023 ambulatory Jose Eduardo Murray Facility:[facility] Start: 01-06-2023 End: 01-06-2023 ambulatory MD Ramon Martines Work Phone: [facility] Work Phone: Start: 01-06-2023 End: 01-06-2023 Patient encounter procedure MD Ramon Martines Work Phone: [facility] [place] Work Phone: Start: 12-28-2022 End: 12-28-2022 ambulatory ЕЛЕНА DASHA [facility] Start: 12-26-2022 End: 12-26-2022 ambulatory GONZÁLEZ HADDAD . Facility: Start: 12-21-2022 End: 12-22-2022 ambulatory SUZI MURRAY Facility:[facility] Start: 12-06-2022 End: 12-31-[address] RAMON MARTINES Facility:[facility] Start: 09-26-2022 End: 09-27-[address] RAMON MARTINES Facility:[facility] Start: 09-05-2022 End: 09-05-2022 ambulatory Sanaz Campo Facility:[facility] Start: 09-05-2022 End: 09-05-2022 Patient encounter procedure ELECTRICAL TRYOUT PERSON-C Sanaz Campo Work Phone: [facility] Start: 09-05-2022 End: 09-05-2022 ambulatory ELECTRICAL TRYOUT PERSON-C Sanaz Campo Work Phone: [facility] Work Phone: Start: 09-05-2022 Office outpatient visit 15 minutes Sanaz Campo [facility] Start: 04-19-2022 End: 04-20-[address] RAMON MARTINES Facility:[facility] Start: 05-29-2018 End: 05-30-2018 Patient encounter PROVIDER UNKNOWN Facility:[facility] Start: 05-28-2018 End: 05-29-2018 Patient encounter DEFAULT PHYSICIAN Facility:[facility] Start: 05-20-2018 End: 05-21-2018 Patient encounter DEFAULT PHYSICIAN Facility:[facility] Procedures Date Procedure Procedure Detail Performing Clinician Start: 04-26-2023 Follow-up visit Follow-up JOAQUÍN SMITH Start: 01-06-2023 MRI of head MD Ramon chapman Work Phone: Start: 09-05-2022 Plain X-ray of left wrist ELECTRICAL TRYOUT PERSON-C Sanaz Campo Work Phone: Appendectomy Deven BUTLER Arthroplasty of knee Deven BUTLER Extraction of cataract Mayra BUTLER Implantation of radioactive seed into prostate Deven BUTLER Placement of stent i n cardiac conduit Deven BUTLER Plan of Treatment Date Care Activity Detail Author [facility] Payers Date Payer Category Payer Self-pay 1957 Medicare [id number] 1957 Unknown [id number] 1935 Unknown [id number] 2.16.84 [id number] 1935 Unknown [id number] 2.16.84 [id number] 1935 Unknown [id number] 2.16.84 [id number] 1935 Unknown [id number] 2.16.84 [id number] 1935 Unknown [id number] 2.16.84 [id number] 1935 Unknown [id number] 2.16.84 [id number] 1935 Unknown [id number] 2.16.8 [id number] 1935 Unknown [id number] 2.16.8 [id number] Medicare [id number] Unknown Unknown [id number] 2.16.8 [id number] Unknown [id number] 2.16.8 [id number] Unknown [id number] 2.16.8 [id number] Social History Date Type Detail Facility Tobacco smoking stat [facility] Unknown if ever smoked [facility] Work Phone: Start: 1935 Sex Assigned At Male F [facility] Sex Assigned At [facility] Start: 03-02-2020 Tobacco smoking status Never s moked tobacco (finding) [facility] Functional Status Date Assessment Result Facility 12-01-2023 Functional Status N/A [facility] [place] [place] Clinical Notes 09-05-2022 to 12-01-2023 Note Date [...] nerve stimulation). ?For women, using a medical record clerk to prevent urine leaks. This is a [...] right after experiencing incontinence. General instructions Take jazt-lcm-egaxkzh and prescription medicines only as told by [...] important. Where to find more information National [place] of Diabetes and Digestive and Kidney Diseases: www.niddk.nih.gov [employer]: www.urologyhealth.org Contact a health care [...] provider. Document Revised: 05/07/2021 Document Reviewed: 05/07/2021 [employer] Patient Education 2022 [employer]. Follow Up Care 08/25/2023 10:52:16 With:MÓNICA STEPHENSON, Deven Zimmerman, URL Address: [address] [place] [address]- When: Unknown [facility] 10-11-2023 Note Stable s/p Dual chamber PPM [facility] 10-11-2023 Note Stable s/p Dual chamber PPM [facility] 10-11-2023 Note Pt presents for 1 we ek wound check s/p recent [employer] dual PPM implant for SSS/ bradycardia Incision site well approximated, healing well without s/s of infection [facility] 10-11-2023 Note UTP CARDIOLOGY PROGR [...] PROCEDURE: 10/02/23 PERFORMING PHYSICIAN: Dr. Mike Hilario HEAVY LINE TECHNICIAN: Dr Lana Powell CONSENT: Patient LOCATION: EP Lab PROCEDURE PERFORMED: 1. Implantation of pacemaker ([employer]) 2. Ultrasound guided venous access INDICATIONS: 1. Sinus node dysfunction. 2. Bradycardia No echocardiogram results found for the past 12 months Assessment/Plan: Cardiac pacemaker in situ Pt presents for 1 week wound check s/p recent [employer] dual PPM implant for SSS/ bradycardia Incision site well approximated, healing well without s/s of infection Sinus node dysfunction (CMS/HCC) Stable s/p Dual chamber PPM Sinus bradycardia Stable s/p Dual chamber PPM RTC 1 month with device rep [facility] 10-02-2023 Note DUAL CHAMBER PACEMAK ER IMPLANT PROCEDURE NOTE DATE OF PROCEDURE: 10/02/23 PERFORMING PHYSICIAN: Dr. Mike Hilario HEAVY LINE TECHNICIAN: Dr Lana Powell CONSENT: Patient LOCATION: EP Lab PROCEDURE PERFORMED: 1. Implantation of pacemaker ([employer]) 2. Ultrasound guided venous access INDICATIONS: [...] discontinued due to having ER visit with [facility] for complaints of dizziness and was [...] using modified seldinger technique using a 5 Polish micro-puncture needle on two occasions and 0.35 [...] for the device above the muscle. 6 Polish Safesheaths were placed over the wire. An active fixation [employer] pacing lead was then delivered through the 6Fsheath to the right ventricle. After confirmation of lead position on orthogonal views (GRAVES and MAURITANIAN) to confirm septal position, the screw was activated, and the lead was placed in the right ventricular mid cavity towards the septum. After confirmation of good sensing parameters, injury pattern and pacing thresholds, 10V pacing was done and no diaphragmatic stimulation was noted. It was then secured in the pocket using three 1-0 Silk sutures. Then an active fixation [employer] lead was delivered through the 6Fsheath to the right atrial appendage. After confirmation of lead position on orthogonal views (GRAVES and MAURITANIAN), the screw was activated. Good sensing parameters, [...] No driving for (more content not included)... 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 Use of blood products discussed with patient who. Additional Equipment Requests [facility] 08-22-2023 Note [place] Electrophysiology Note Reason for visit: bradycardia Date of Telehealth Visit: 08/22/23 The patient was notified that using 3rd constitution party telecommunication application (e.g., [employer]) is not HIPPA compliant and may carry some privacy risks. Yes The visit was conducted [id number]-iwsk with the use of audio and video [...] discontinued due to having ER visit with [facility] for complaints of dizziness and was [...] ECG 05/04/2018: Atrial fibrillation, possible old septal ND. ECG 05/28/2018 showed sinus rhythm with 1st degree AV block and PAC. Possible anteroseptal ND. ECG today 03/21/2019: sinus rhythm with 1st [...] Cardio Basic Cardiovascular (more content not included)... [facility] 04-26-2023 Note [place] Electrophysiology Note [...] PACs. 05/04/2018: Atrial fibrillation, possible old septal ND. 05/28/2018 showed sinus rhythm with 1st degree AV block and PAC. Possible anteroseptal ND. - 02/2023 HPI: Edwin Orourke is a 88 y.o. year old Was referred to EP clinic for bradycardia. He was recommended followed by his neurology group as he was found to be bradycardic with a pulse of 40 to 50s per his . In December 2022 had his metoprolol discontinued due to having ER visit with [facility] for complaints of dizziness and was [...] mid chest pain, was admitted to the [facility] and discharged the following day. He then went back and had a stress test on 05/17/2018 that showed large anterior ischemia with EF 64%. ECG 05/04/2018: Atrial fibrillation, possible old septal ND. ECG 05/28/2018 showed sinus rhythm with 1st degree AV block and PAC. Possible anteroseptal ND. Update 06/25/2018: He is seen after his [...] mid chest pain, was admitted to the [facility] and discharged the following day. He then went back and had a stress test on 05/17/2018 that showed large anterior ischemia with EF 64%. He says he never felt that before. Review of testing done during the [facility] admission showed mildl elevated of CK-MB, and elevated CK. His Tn showed a minimal rise but never reached cutoff for ND. CBC, BMP showed no anemia and normal renal function. He was also found to have AF , new onset not known before at the time of admission to [facility]. He was prescribed xarelto but was too expensive. He was given Brilinta 90 mg bid sample, and says that the medication will cost him a lot if he were to acquire it. I have reviewed the ECG done at [facility] and I think it showed SR. He has prior history of diabetes and hypertension on treatment. Since admission, he has been having angina with mild exertion. This is moderate in intensity. He has to stop activity for it to subside. ECG 05/04/2018: Atrial fibrillation, possible old septal ND. ECG 05/28/2018 showed sinus rhythm with 1st degree AV block and PAC. Possible anteroseptal ND. Update 06/25/2018: He is seen after his [...] reports one ep (more content not included)... [facility] 04-26-2023 Note Patient is here toda y for a 2 month follow up Review of Systems Constitutional: Positive for malaise/fatigue. Cardiovascular: Positive for dyspnea on exertion. Musculoskeletal: Positive for arthritis, back pain and joint pain. Neurological: Positive for light-headedness (when bending over). All other systems reviewed and are negative. [facility] 03-28-2023 Note - asymptomatic at th is time and during Holter monitor - for a treadmill stress test to rule out chronotropic incompetence/ SSS [facility] 03-28-2023 Note - CAD stable - continue aspirin [facility] 03-28-2023 Note - stable - continue aspirin 81 mg, lisinopril-hydrochlorothiazide 20-25 mg, hydralazine 25 mg 3 times daily Imdur 60 mg [facility] 03-14-2023 Note Patient here for fol low up Holter monitor to evaluate bradycardia per Sarah Wilson DNP. Denies chest pain. Still Review of Systems Constitutional: Positive for malaise/fatigue. Cardiovascular: Positive for dyspnea on exertion. Musculoskeletal: Positive for arthritis, back pain and joint pain. Neurological: Positive for light-headedness (when bending over). All other systems reviewed and are negative. [facility] 03-14-2023 Note [facility] Electrophysiology Note [...] discontinued due to having ER visit with [facility] for complaints of dizziness and was [...] of breath, ALCARAZ, orthopnea --- Per dr. Flores 12/2021 Previous note- follow up on CAD s/p stenting of LAD and Diagonal in 05/2018, hypertension. Visit of 05/28/2018: Mr Orourke is referred for chest pain and positive stress test. He is a 83 yo man who about 3 weeks ago went to bed and felt crushing mid chest pain, was admitted to the [facility] and discharged the following day. He then went back and had a stress test on 05/17/2018 that showed large anterior ischemia with EF 64%. ECG 05/04/2018: Atrial fibrillation, possible old septal ND. ECG 05/28/2018 showed sinus rhythm with 1st degree AV block and PAC. Possible anteroseptal ND. Update 06/25/2018: He is seen after his [...] mid chest pain, was admitted to the [facility] and discharged the following day. He then went back and had a stress test on 05/17/2018 that showed large anterior ischemia with EF 64%. He says he never felt that before. Review of testing done during the [facility] admission showed mildl elevated of CK-MB, and elevated CK. His Tn showed a minimal rise but never reached cutoff for ND. CBC, BMP showed no anemia and normal renal function. He was also found to have AF , new onset not known before at the time of admission to [facility]. He was prescribed xarelto but was too expensive. He was given Brilinta 90 mg bid sample, and says that the medication will cost him a lot if he were to acquire it. I have reviewed the ECG done at [facility] and I think it showed SR. He has prior history of diabetes and hypertension on treatment. Since admission, he has been having angina with mild exertion. This is moderate in intensity. He has to stop activity for it to subside. ECG 05/04/2018: Atrial fibrillation, possible old septal ND. ECG 05/28/2018 showed sinus rhythm with 1st degree AV block and PAC. Possible anteroseptal ND. Update 06/25/2018: He is seen after his [...] pressure is usu (more content not included)... [facility] 02-15-2023 Note Patient here to [...] All other systems reviewed and are negative. [facility] 02-15-2023 Note Cardiology Clinic No [...] due to findings of bradycardia at the [facility] following presentation for evaluation of dizziness. is primary historian. She reports he has balance issues due to degenerative disk disease. He is unable to describe the symptoms he is experiencing, however denies recurrence of dizziness or lightheadedness. He does endorse feeling fatigued and overall poorly. Patient Active Problem List Diagnosis Coronary artery disease involving red cliff coronary artery of red cliff heart without angina pectoris Benign essential HTN Status post percutaneous transluminal coronary angioplasty Sinus bradycardia Vertigo Hyperlipidemia Gastroesophageal reflux disease Chest pain Type 2 diabetes mellitus without complication ([facility]) No family history on file. Social History [...] mid chest pain, was admitted to the [facility] and discharged the following day. He then went back and had a stress test on 05/17/2018 that showed large anterior ischemia with EF 64%. He says he never felt that before. Review of testing done during the [facility] admission showed mildl elevated of CK-MB, and elevated CK. His Tn showed a minimal rise but never reached cutoff for ND. CBC, BMP showed no anemia and normal renal function. He was also found to have AF , new onset not known before at the time of admission to [facility]. He was prescribed xarelto but was too expensive. He was given Brilinta 90 mg bid sample, and says that the medication will cost him a lot if he were to acquire it. I have reviewed the ECG done at [facility] and I think it showed SR. He has prior history of diabetes and hypertension on treatment. Since admission, he has been having angina with mild exertion. This is moderate in intensity. He has to stop activity for it to subside. ECG 05/04/2018: Atrial fibrillation, possible old septal ND. ECG 05/28/2018 showed sinus rhythm with 1st degree AV block and PAC. Possible anteroseptal ND. Update 06/25/2018: He is seen after his [...] on Monday al (more content not included)... [facility] 12-28-2022 Note Hypertension is Stab le currently- Blood pressure log at home blood pressure is anywhere from 120-150/70-80- ER it was quite elevated 200/98 And hydralazine was added Orthostatic vitals were negative his blood pressure is actually lower lying than standing- He denied dizziness in office Continue all current meds [facility] 12-28-2022 Note Meclizine and follow -up with PCP He has followed up with neurology last week EKG 12/26/22- Sinus bradycardia with 1st degree AV block- 46 bpm ED summary 12/26/22 Vitals, B/P 200/98, HR 46, O2 sat 98% Pt was started also on hydralazine 25 mg tid. [facility] 12-28-2022 Note [facility] C[facility] PROGR [...] mid chest pain, was admitted to the [facility] and discharged the following day. He then went back and had a stress test on 05/17/2018 that showed large anterior ischemia with EF 64%. ECG 05/04/2018: Atrial fibrillation, possible old septal ND. ECG 05/28/2018 showed sinus rhythm with 1st degree AV block and PAC. Possible anteroseptal ND. Update 06/25/2018: He is seen after his [...] less than 2 (more content not included)... [facility] 12-28-2022 Note Pt is here for dizzi ness pt states he been having Dizziness stated he when to the ER on Monday also states he is still having Dizziness but not as bad Review of Systems Constitutional: Positive for malaise/fatigue. Neurological: Positive for dizziness and light-headedness. All other systems reviewed and are negative. [facility] 12-28-2022 Note Concerning cardiac s ymptoms at this time continue goal-directed medical therapy continue risk factor modifications- heart healthy diet, regular exercise as tolerated and continue all medications. [facility] 09-05-2022 Evaluation note Encounter Date [...] care office for follow up on Monday [facility] [employer] Other Evaluation + Plan note No data available for this section [facility] evaluation noteNo assessment information available [facility] Work Phone: History general Narrative - Reported* Type Description Date Medical History diabetes mallitus Medical History high blood pressure Medical History high cholesterol Surgical History b/l knee 1999 [facility] [employer] Other Progress note No data available for this section [facility] Summary Purpose Family History No Family [...] section and content) DATE CREATED AUTHOR 06/21/2018 [facility] DATE CREATED AUTHOR AUTHOR'S ORGANIZ ATION 02/23/2023 [facility] DATE CREATED AUTHOR AUTHOR'S ORGANIZ ATION 04/05/2023 [facility] DATE CREATED AUTHOR AUTHOR'S ORGANIZ ATION 11/22/2023 [facility] DATE CREATED AUTHOR AUTHOR'S ORGANIZ ATION 12/03/2023 [facility] Care Teams (unrecognized sec tion and content) [...] BE BASED ON THE PRIMARY CLINICAL RECORDS. [facility] [employer] [facility]. provides no warranty or guarantee of the accuracy or completeness of information in this document.
--- NOTE | 2023-12-27 13:24 | PM.CN ---
Consult Note: HPI Data of Consult Patient: known to practice within the last 3 years Requesting Physician: Caridad Jordan NP Primary Care Provider: Ramon Ortiz MD Consult Narrative Reason for consult: f/u Narrative: Corey Orourke a pleasant 88 year old male presents for evaluation and management of low back pain. Today rating pain 0/10. Is reporting greater than 85% ongoing pain relief and functional improvement as a result of caudal OMAR. Patient doing well on current medication regimen. Patient continues to have weakness and heaviness of BLE, engaged in HEP and utilizes a walker. cc:: CC: Caridad Jordan NP Review of Systems ROS Status of ROS 10 or more systems reviewed and unremarkable except as noted in history and below Musculoskeletal Reports: back pain PFSH PFSH Medical History (Updated 10/21/23 @ 00:00 by ) Senile dementia ?F03.90 - Unspecified dementia, unspecified severity, without behavioral disturbance, psychotic disturbance, mood disturbance, and anxiety (ICD-10) CAD (coronary artery disease), [place] coronary artery ?I25.10 - Atherosclerotic heart disease of [place] coronary artery without angina pectoris (ICD-10) Chronic heart failure with preserved ejection fraction (HFpEF) ?I50.32 - Chronic diastolic (congestive) heart failure (ICD-10) Benign essential hypertension ?I10 - Essential (primary) hypertension (ICD-10) Paroxysmal atrial fibrillation ?I48.0 - Paroxysmal atrial fibrillation (ICD-10) Type 2 diabetes mellitus with hyperglycemia ?E11.65 - Type 2 diabetes mellitus with hyperglycemia (ICD-10) Acute hyponatremia ?E87.1 - Hypo-osmolality and hyponatremia (ICD-10) Lumbar stenosis with neurogenic claudication ?M48.062 - Spinal stenosis, lumbar region with neurogenic claudication (ICD-10) Kidney stone on right side ?N20.0 - Calculus of kidney (ICD-10) Degenerative disc disease Skin cancer ?C44.90 - Unspecified malignant neoplasm of skin, unspecified (ICD-10) Prostate cancer ?C61 - Malignant neoplasm of prostate (ICD-10) Postsurgical cardiac pacemaker in situ ?Z95.0 - Presence of cardiac pacemaker (ICD-10) Surgical History History of cholecystectomy ?Z90.49 - Acquired absence of other specified parts of digestive tract (ICD-10) History of cataract surgery ?Z98.49 - Cataract extraction status, unspecified eye (ICD-10) History of bilateral knee replacement ?Z96.653 - Presence of artificial knee joint, bilateral (ICD-10) Family History Brother Family history of myocardial infarction Family history of hypertension Family history of diabetes mellitus Mother Family history of hypertension Family history of diabetes mellitus Sister Family history of diabetes mellitus Social History Within the past year, how often did you have a drink containing alcohol: never Score interpretation: A score less than 4 is consistent with normal alcohol consumption. Smoking status: Never smoker Non-prescribed substance use: denies use Previous occupational history: [employer] Known occupational exposures/hazards: No Highest level of school completed/degree received: high school graduate Are you now , , , , never or living with a partner: In a typical week, how many times do you talk on the telephone with family, friends, or neighbors: 3 or more times per week How often do you get together with friends or relatives: 3 or more times per week How often do you attend pentecostal or bahai services: 4 or more times per year Do you belong to any clubs or organizations such as pentecostal groups unions, [employer] or athletic groups, or school groups: no Total score: 3 Score interpretation: A score of greater than or equal to 2 indicates the lowest level of social isolation. Feel stressed/tense/nervous/anxious/difficulty sleeping: not at all Do you think of yourself as: straight/heterosexual Gender Identity: male Meds Home Medications and Allergies Home Medications Medication Instructions Recorded Confirmed Type aspirin 81 mg tablet,delayed 81 mg PO DAILY 03/27/23 12/05/23 History release donepezil 10 mg tablet (Aricept) 10 mg PO DAILY 03/27/23 12/05/23 History isosorbide mononitrate 60 mg 60 mg PO DAILY 03/27/23 12/05/23 History tablet,extended release 24 hr latanoprost 0.005 % eye drops 1 drp ophthalmic (eye) DAILY 03/27/23 12/05/23 History lisinopril 20 1 tab PO DAILY 03/27/23 12/05/23 History mg-hydrochlorothiazide 25 mg tablet lovastatin 40 mg tablet 40 mg PO DAILY 03/27/23 12/05/23 History metformin 500 mg tablet 500 mg PO DAILY 03/27/23 12/05/23 History omeprazole 40 mg capsule,delayed 40 mg PO DAILY 03/27/23 12/05/23 History release tamsulosin 0.4 mg capsule 0.8 mg PO DAILY 03/27/23 12/05/23 History vitamins A,C,G-kiqv-axsank 4,296 2 cap PO DAILY 03/27/23 12/05/23 History mcg-226 mg-90 mg capsule (PreserVision AREDS) acetaminophen 500 mg tablet 500 mg PO Q4H PRN pain 06/21/23 12/05/23 History (Acetaminophen Extra Strength) gabapentin 300 mg capsule 300 mg PO BID #60 caps 09/27/23 12/05/23 Rx zinc 50 mg tablet 50 mg PO DAILY 10/13/23 12/05/23 History citalopram 10 mg tablet 10 mg PO QAM 10/17/23 12/05/23 History hydralazine 50 mg tablet 50 mg PO TID 10/17/23 12/05/23 History oxybutynin chloride 15 mg 15 mg PO QDAY 10/17/23 12/05/23 History tablet,extended release 24 hr sodium chloride 1,000 mg soluble 1,000 mg PO TID #0 tabs 10/17/23 12/05/23 Rx tablet docusate sodium 100 mg capsule mg PO 11/21/23 History fluticasone propionate 50 2 spray intranasal DAILY PRN 11/21/23 12/05/23 History mcg/actuation nasal allergy symptoms spray,suspension (Allergy Relief (fluticasone)) insulin lispro 100 unit/mL 1 sliding scale dose subcut 11/21/23 12/05/23 History subcutaneous pen (Humalog KwikPen USEASDIRECTD (U-100) Insulin) loratadine 10 mg tablet (Claritin) 10 mg PO DAILY 11/21/23 12/05/23 History polyethylene glycol 3350 17 17 g PO DAILY 11/21/23 12/05/23 History gram/dose oral powder (GentleLax) Allergies Allergy/AdvReac Type Severity Reaction Status Date / Time No Known Drug Allergies Allergy Verified 12/05/23 10:13 Exam Constitutional Documenting provider has reviewed patient's vital signs: yes Common normals: no apparent distress, oriented x3, healthy appearing, alert and well nourished General appearance: cooperative HENMT Common normals: normocephalic, hearing grossly normal bilaterally and moist oral mucous membranes Head and scalp: normocephalic Eye Common normals: PERRL Pupil: PERRL Neck & C-Spine Common normals: full ROM General: normal visual inspection Chest Common normals: inspection of chest normal Respiratory Common normals: normal respiratory effort, no retractions and no use of accessory muscles Back & Pelvis Lumbar spine/lower back: ROM limited, pain with ROM and straight leg raise negative bilaterally Neuro Common normals: oriented x3, CN's II-XII intact bilaterally, moves all extremities, no focal motor deficits, no sensory deficits noted and deep tendon reflexes 2+ bilaterally Sensorium/orientation: alert Gait (neuro): antalgic and assistive device used walker Motor exam: strength 5/5 throughout and no movement abnormalities noted Psych Common normals: mental status grossly normal, thought process normal, cooperative, affect normal, speech normal and activity/motor behavior normal Speech: normal speech Thought process: normal thought process Assessment and Plan Assessment and Plan (1) Lumbar stenosis with neurogenic claudication: Plan continue gabapentin 300mg BID continue PRN tylenol f/u 3 months, sooner if needed
== END 2023-12-27 13:04 | disposition home or self-care (01) ==
PROVIDERS: PCP Family Medicine; Visit Provider Nurse Practitioner
DX: M48.062 Spinal stenosis, lumbar region with neurogenic claudication (principal)
CPT/HCPCS: G0463

== ENCOUNTER 2024-01-24 13:01 | Outpatient (OUT) | payer MEDICARE, OTHER, SELFPAY ==
--- NOTE | 2024-01-24 13:58 | P.CN_ITS ---
Consult Note: HPI Data of Consult Patient: known to practice within the last 3 years Requesting Physician: Caridad Jordan NP Primary Care Provider: Ramon Ortiz MD Consult Narrative Reason for consult: f/u Narrative: Corey Orourke a pleasant 88 year old male presents for evaluation and management of low back pain. Today rating pain 8-9/10 in low back with heaviness and weakness of BLE. Patient engaged in HEP and PT without benefit, greater than 6 weeks. Unfortunately prior caudal OMAR only provided relief for approximately 4 weeks. Patient would like to discuss alternative injection options today. Patient currently on naproxen 500mg BID PRN gabapentin 300mg BID with mild benefit. cc:: CC: Caridad Jordan NP Review of Systems ROS Status of ROS 10 or more systems reviewed and unremark able except as noted in history and below Musculoskeletal Reports: back pain and extremity pain PFSH PFSH Medical History (Updated 01/24/24 @ 14:13 by Caridad Jordan NP) Senile dementia ?F03.90 - Unspecified dementia, unspecified severity, without behavioral disturbance, psychotic disturbance, mood disturbance, and anxiety (ICD-10) CAD (coronary artery disease), [place] coronary artery ?I25.10 - Atherosclerotic heart disease of [place] coronary artery without angina pectoris (ICD-10) Chronic heart failure with preserved ejection fraction (HFpEF) ?I50.32 - Chronic diastolic (congestive) heart failure (ICD-10) Benign essential hypertension ?I10 - Essential (primary) hypertension (ICD-10) Paroxysmal atrial fibrillation ?I48.0 - Paroxysmal atrial fibrillation (ICD-10) Type 2 diabetes mellitus with hyperglycemia ?E11.65 - Type 2 diabetes mellitus with hyperglycemia (ICD-10) Acute hyponatremia ?E87.1 - Hypo-osmolality and hyponatremia (ICD-10) Lumbar stenosis with neurogenic claudication ?M48.062 - Spinal stenosis, lumbar region with neurogenic claudication (ICD- 10) Kidney stone on right side ?N20.0 - Calculus of kidney (ICD-10) Degenerative disc disease Skin cancer ?C44.90 - Unspecified malignant neoplasm of skin, unspecified (ICD-10) Prostate cancer ?C61 - Malignant neoplasm of prostate (ICD-10) Postsurgical cardiac pacemaker in situ ?Z95.0 - Presence of cardiac pacemaker (ICD-10) Surgical History History of cholecystectomy ?Z90.49 - Acquired absence of other specified parts of digestive tract (ICD- 10) History of cataract surgery ?Z98.49 - Cataract extraction status, unspecified eye (ICD-10) History of bilateral knee replacement ?Z96.653 - Presence of artificial knee joint, bilateral (ICD-10) Family History Brother Family history of myocardial infarction Family history of hypertension Family history of diabetes mellitus Mother Family history of hypertension Family history of diabetes mellitus Sister Family history of diabetes mellitus Social History Within the past year, how often did you have a drink containing alcohol: never Score interpretation: A score less than 4 is consistent with normal alcohol consumption. Smoking status: Never smoker Non-prescribed substance use: denies use Previous occupational history: [employer] Known occupational exposures/hazards: No Highest level of school completed/degree received: high school graduate Are you now , , , , never or living with a partner: In a typical week, how many times do you talk on the telephone with family, friends, or neighbors: 3 or more times per week How often do you get together with friends or relatives: 3 or more times per week How often do you attend anabaptist or adventist services: 4 or more times per year Do you belong to any clubs or organizations such as anabaptist groups unions, fraternal or athletic groups, or school groups: no Total score: 3 Score interpretation: A score of greater than or equal to 2 indicates the lowest level of social isolation. Feel stressed/tense/nervous/anxious/difficulty sleeping: not at all Do you think of yourself as: straight/heterosexual Gender Identity: male Meds Home Medications and Allergies Home Medications ?Medication ?Instructions ?Recorded ?Confirmed ?Type aspirin 81 mg tablet,delayed 81 mg PO DAILY 03/27/23 12/05/23 History release donepezil 10 mg tablet (Aricept) 10 mg PO DAILY 03/27/23 12/05/23 History isosorbide mononitrate 60 mg 60 mg PO DAILY 03/27/23 12/05/23 History tablet,extended release 24 hr latanoprost 0.005 % eye drops 1 drp ophthalmic (eye) DAILY 03/27/23 12/05/23 History lisinopril 20 1 tab PO DAILY 03/27/23 12/05/23 History mg-hydrochlorothiazide 25 mg tablet lovastatin 40 mg tablet 40 mg PO DAILY 03/27/23 12/05/23 History metformin 500 mg tablet 500 mg PO DAILY 03/27/23 12/05/23 History omeprazole 40 mg capsule,delayed 40 mg PO DAILY 03/27/23 12/05/23 History release tamsulosin 0.4 mg capsule 0.8 mg PO DAILY 03/27/23 12/05/23 History vitamins A,C,V-xtmd-jzojfj 4,296 2 cap PO DAILY 03/27/23 12/05/23 History mcg-226 mg-90 mg capsule (PreserVision AREDS) acetaminophen 500 mg tablet 500 mg PO Q4H PRN pain 06/21/23 12/05/23 History (Acetaminophen Extra Strength) gabapentin 300 mg capsule 300 mg PO BID #60 caps 09/27/23 12/05/23 Rx zinc 50 mg tablet 50 mg PO DAILY 10/13/23 12/05/23 History citalopram 10 mg tablet 10 mg PO QAM 10/17/23 12/05/23 History hydralazine 50 mg tablet 50 mg PO TID 10/17/23 12/05/23 History oxybutynin chloride 15 mg 15 mg PO QDAY 10/17/23 12/05/23 History tablet,extended release 24 hr sodium chloride 1,000 mg soluble 1,000 mg PO TID #0 tabs 10/17/23 12/05/23 Rx tablet docusate sodium 100 mg capsule mg PO 11/21/23 History fluticasone propionate 50 2 spray intranasal DAILY PRN 11/21/23 12/05/23 History mcg/actuation nasal allergy symptoms spray,suspension (Allergy Relief (fluticasone)) insulin lispro 100 unit/mL 1 sliding scale dose subcut 11/21/23 12/05/23 History subcutaneous pen (Humalog KwikPen USEASDIRECTD (U-100) Insulin) loratadine 10 mg tablet (Claritin) 10 mg PO DAILY 11/21/23 12/05/23 History polyethylene glycol 3350 17 17 g PO DAILY 11/21/23 12/05/23 History gram/dose oral powder (GentleLax) Allergies Allergy/AdvReac Type Severity Reaction Status Date / Time No Known Drug Allergies Allergy Verified 12/05/23 10:13 Exam Constitutional Documenting provider has reviewed patient's vital signs: yes Common normals: no apparent distress, oriented x3, healthy appearing, alert and well nourished General appearance: cooperative HENMS Common normals: normocephalic, hearing grossly normal bilaterally and moist oral mucous membranes Head and scalp: normocephalic Eye Common normals: PERRL Pupil: PERRL Neck & C-Spine Common normals: full ROM General: normal visual inspection Chest Common normals: inspection of chest normal Respiratory Common normals: normal respiratory effort, no retractions and no use of accessory muscles Back & Pelvis Lumbar spine/lower back: ROM limited, pain with ROM and straight leg raise negative bilaterally Neuro Common normals: oriented x3, CN's II-XII intact bilaterally, moves all extremities, no focal motor deficits, no sensory deficits noted and deep tendon reflexes 2+ bilaterally Sensorium/orientation: alert Gait (neuro): antalgic and assistive device used walker Motor exam: no movement abnormalities noted and strength abnormal (4/5 BLE ) Psych Common normals: mental status grossly normal, thought process normal, cooperative, affect normal, speech normal and activity/motor behavior normal Speech: normal speech Thought process: normal thought process Results Additional Findings Additional findings: If on a controlled substance or opioids, I have checked an [place] report on this patient and there are no aberrancies noted in the prescribing history.??If on a controlled substance or opioid a drug screen was completed and reviewed within the last year, and if there has not been a drug screen completed we ordered one today to monitor higher risk, state monitored pain medication use. As part of providing excellent, safe, comprehensive care, the following was c ompleted at our patient's visit: 1. A medication reconciliation and review to ensure accurate knowledge of current/active medications, including asking our patients to inform us about any [id number] medications or herbal remedies/nutritional supplements/alternative remedies. 2. A review to specifically ensure our patients have had annual screening for screening for depression, screening for tobacco use, and screening for unhealthy alcohol use. For concerning screenings had a discussion with the patient, provided patient education, and recommended follow-up with primary care provider when appropriate. If patient noted with a risk of falling, they received education on strength, gait, and balance training to prevent future risk of falling. Assessment and Plan Assessment and Plan (1) Lumbar stenosis with neurogenic claudication: (2) Lumbar radiculopathy: Plan risks vs benefits discussed, L5-S1 OMAR under fluoroscopy risks vs benefits discussed increase gabapentin 300mg TID, discussed potential side effects with pt and they will call is any adverse reactions continue PT/HEP f/u after innjection
== END 2024-01-24 13:02 | disposition home or self-care (01) ==
LOC: PM 13:02
PROVIDERS: PCP Family Medicine; Visit Provider Nurse Practitioner
DX: M48.062 Spinal stenosis, lumbar region with neurogenic claudication (principal); M54.16 Radiculopathy, lumbar region
CPT/HCPCS: G0463

== ENCOUNTER 2024-02-13 09:14 | Day surgery (SDC) | payer MEDICARE, OTHER, SELFPAY ==
[2024-02-13 09:44] VITALS: BP 148/76; PULSE 76; TEMP 36.6; O2SAT 98
[2024-02-13 09:46] LABS: Glucometer 93 mg/dL (74-106)
[2024-02-13] MEDS: IOHEXOL 240 MG/ML - 10 ML VIAL 24 MG INJ (10:11)
[2024-02-13] MEDS: BUPIVACAINE HCL 0.25% PF 25 MG/10 ML VIAL 2 ML INJ (10:11)
[2024-02-13] MEDS: LIDOCAINE HCL 2% PF 100 MG/5 ML VIAL 1 ML INJ (10:11)
[2024-02-13] MEDS: METHYLPREDNISOLONE ACETATE 80 MG/ML VIAL INJ (10:11)
[2024-02-13] MEDS: 0.9 % SODIUM CHLORIDE 10 ML SYRINGE - SALINE FLUSH 2 ML INJ (10:11)
[2024-02-13 10:12] VITALS: BP 156/67; PULSE 80; O2SAT 96
[2024-02-13 10:13] VITALS: BP 161/72; PULSE 75; O2SAT 96
--- NOTE | 2024-02-13 10:18 | P.ON_ITS ---
Date of procedure: 02/13/24 Pre-op diagnosis: lumbar radiculopathy Post-op diagnosis: same as pre-op Procedure: Lumbar 5/sacral 1 Epidural Steroid Injection Under fluoroscopic guidance Immediate complications none Solution used for injection: Marcaine 0.25% 2mL, 2cc Normal saline, Depo-Medrol 80mg Omnipaque 3 mL Anesthesia local 2% lidocaine up to 4ml Timeout process compliant After informed consent obtained. Patient brought to the procedure room placed in the prone position. Skin overlying the area was prepped and draped in a sterile fashion using betadine. 25 gauge needle used to raise a skin wheel with local anesthetic over the target area identified under fluoroscopy. A 17 gauge Touhy needle Was inserted over the anesthetized area and directed towards the inter- space under fluoroscopic guidance. Epidural space was identified with loss of resistance technique to air. Needle Tip placement confirmed with injection of contrast solution. Steroid solution was then injected. Anesthesia: Local Surgeon: Ericka Holden Condition: stable
== END 2024-02-13 10:26 | disposition home or self-care (01) ==
LOC: SURGOUT 09:14
PROVIDERS: PCP Family Medicine; Visit Provider Anesthesiology Pain Medicine
DX: M54.16 Radiculopathy, lumbar region (principal); Z79.4 Long term (current) use of insulin
CPT/HCPCS: 36415; 62323; 82948; J1010; Q9966

== ENCOUNTER 2024-02-21 12:55 | Outpatient (OUT) | payer MEDICARE, OTHER, SELFPAY ==
--- NOTE | 2024-02-22 08:21 | PM.CN ---
Consult Note: HPI Data of Consult Patient: known to practice within the last 3 years Requesting Physician: Caridad Jordan NP Primary Care Provider: Ramon Ortiz MD Consult Narrative Reason for consult: f/u Narrative: Corey Orourke a pleasant 88 year old male presents for evaluation and management of low back pain. Today rating pain 3/10 aching, increasing with standing and walking. Patient engaged in HEP and PT without benefit, greater than 6 weeks. Unfortunately prior caudal OMAR only provided relief for approximately 4 weeks. recently underwent L5/S1 OMAR with 10% improvement per patient, however noting decrease in pain. Patient currently on naproxen 500mg BID PRN gabapentin 300mg TID with mild benefit. Patient now enrolled with hospice. cc:: CC: Caridad Jordan NP Review of Systems ROS Status of ROS 10 or more systems reviewed and unremarkable except as noted in history and below Musculoskeletal Reports: back pain PFSH PFS Medical History (Updated 01/24/24 @ 14:13 by Caridad Jordan NP) Senile dementia ?F03.90 - Unspecified dementia, unspecified severity, without behavioral disturbance, psychotic disturbance, mood disturbance, and anxiety (ICD-10) CAD (coronary artery disease), [place] coronary artery ?I25.10 - Atherosclerotic heart disease of [place] coronary artery without angina pectoris (ICD-10) Chronic heart failure with preserved ejection fraction (HFpEF) ?I50.32 - Chronic diastolic (congestive) heart failure (ICD-10) Benign essential hypertension ?I10 - Essential (primary) hypertension (ICD-10) Paroxysmal atrial fibrillation ?I48.0 - Paroxysmal atrial fibrillation (ICD-10) Type 2 diabetes mellitus with hyperglycemia ?E11.65 - Type 2 diabetes mellitus with hyperglycemia (ICD-10) Acute hyponatremia ?E87.1 - Hypo-osmolality and hyponatremia (ICD-10) Lumbar stenosis with neurogenic claudication ?M48.062 - Spinal stenosis, lumbar region with neurogenic claudication (ICD-10) Kidney stone on right side ?N20.0 - Calculus of kidney (ICD-10) Degenerative disc disease Skin cancer ?C44.90 - Unspecified malignant neoplasm of skin, unspecified (ICD-10) Prostate cancer ?C61 - Malignant neoplasm of prostate (ICD-10) Postsurgical cardiac pacemaker in situ ?Z95.0 - Presence of cardiac pacemaker (ICD-10) Surgical History History of cholecystectomy ?Z90.49 - Acquired absence of other specified parts of digestive tract (ICD-10) History of cataract surgery ?Z98.49 - Cataract extraction status, unspecified eye (ICD-10) History of bilateral knee replacement ?Z96.653 - Presence of artificial knee joint, bilateral (ICD-10) Family History Brother Family history of myocardial infarction Family history of hypertension Family history of diabetes mellitus Mother Family history of hypertension Family history of diabetes mellitus Sister Family history of diabetes mellitus Social History Within the past year, how often did you have a drink containing alcohol: never Score interpretation: A score less than 4 is consistent with normal alcohol consumption. Smoking status: Never smoker Non-prescribed substance use: denies use Previous occupational history: [employer] Known occupational exposures/hazards: No Highest level of school completed/degree received: high school graduate Are you now , , , , never or living with a partner: In a typical week, how many times do you talk on the telephone with family, friends, or neighbors: 3 or more times per week How often do you get together with friends or relatives: 3 or more times per week How often do you attend shinto or pentecostalism services: 4 or more times per year Do you belong to any clubs or organizations such as shinto groups unions, fraternal or athletic groups, or school groups: no Total score: 3 Score interpretation: A score of greater than or equal to 2 indicates the lowest level of social isolation. Feel stressed/tense/nervous/anxious/difficulty sleeping: not at all Do you think of yourself as: straight/heterosexual Gender Identity: male Meds Home Medications and Allergies Home Medications ?Medication ?Instructions ?Recorded ?Confirmed ?Type aspirin 81 mg tablet,delayed 81 mg PO DAILY 03/27/23 02/13/24 History release donepezil 10 mg tablet (Aricept) 10 mg PO DAILY 03/27/23 02/13/24 History isosorbide mononitrate 60 mg 60 mg PO DAILY 03/27/23 02/13/24 History tablet,extended release 24 hr latanoprost 0.005 % eye drops 1 p ophthalmic (eye) DAILY 03/27/23 02/13/24 History lisinopril 20 1 tab PO DAILY 03/27/23 02/13/24 History mg-hydrochlorothiazide 25 mg tablet lovastatin 40 mg tablet 40 mg PO DAILY 03/27/23 02/13/24 History metformin 500 mg tablet 500 mg PO DAILY 03/27/23 02/13/24 History omeprazole 40 mg capsule,delayed 40 mg PO DAILY 03/27/23 02/13/24 History release tamsulosin 0.4 mg capsule 0.8 mg PO DAILY 03/27/23 02/13/24 History vitamins A,C,D-viii-lcaiag 4,296 2 cap PO DAILY 03/27/23 02/13/24 History mcg-226 mg-90 mg capsule (PreserVision AREDS) acetaminophen 500 mg tablet 500 mg PO Q4H PRN pain 06/21/23 02/13/24 History (Acetaminophen Extra Strength) zinc 50 mg tablet 50 mg PO DAILY 10/13/23 02/13/24 History citalopram 10 mg tablet 10 mg PO QAM 10/17/23 02/13/24 History hydralazine 50 mg tablet 50 mg PO TID 10/17/23 02/13/24 History oxybutynin chloride 15 mg 15 mg PO QDAY 10/17/23 02/13/24 History tablet,extended release 24 hr sodium chloride 1,000 mg soluble 1,000 mg PO TID #0 tabs 10/17/23 02/13/24 Rx tablet docusate sodium 100 mg capsule mg PO 11/21/23 History fluticasone propionate 50 2 spray intranasal DAILY PRN 11/21/23 02/13/24 History mcg/actuation nasal allergy symptoms spray,suspension (Allergy Relief (fluticasone)) insulin lispro 100 unit/mL 1 sliding scale dose subcut 11/21/23 02/13/24 History subcutaneous pen (Humalog KwikPen USEASDIRECTD (U-100) Insulin) loratadine 10 mg tablet (Claritin) 10 mg PO DAILY 11/21/23 02/13/24 History polyethylene glycol 3350 17 17 g PO DAILY 11/21/23 02/13/24 History gram/dose oral powder (GentleLax) gabapentin 300 mg capsule 300 mg PO TID 01/25/24 02/13/24 History Allergies Allergy/AdvReac Type Severity Reaction Status Date / Time No Known Drug Allergies Allergy Verified 02/13/24 09:38 Exam Constitutional Documenting provider has reviewed patient's vital signs: yes Common normals: no apparent distress, oriented x3, healthy appearing, alert and well nourished General appearance: cooperative HENMT Common normals: normocephalic, hearing grossly normal bilaterally and moist oral mucous membranes Head and scalp: normocephalic Eye Common normals: PERRL Pupil: PERRL Neck & C-Spine Common normals: full ROM General: normal visual inspection Chest Common normals: inspection of chest normal Respiratory Common normals: normal respiratory effort, no retractions and no use of accessory muscles Back & Pelvis Lumbar spine/lower back: ROM limited, pain with ROM and straight leg raise negative bilaterally Neuro Common normals: oriented x3, CN's II-XII intact bilaterally, moves all extremities, no focal motor deficits, no sensory deficits noted and deep tendon reflexes 2+ bilaterally Sensorium/orientation: alert Gait (neuro): antalgic and assistive device used walker Motor exam: no movement abnormalities noted and strength abnormal (4/5 BLE ) Psych Common normals: mental status grossly normal, thought process normal, cooperative, affect normal, speech normal and activity/motor behavior normal Speech: normal speech Thought process: normal thought process Assessment and Plan Assessment and Plan (1) Lumbar stenosis with neurogenic claudication: (2) Lumbar radiculopathy: Plan continue hospice care
== END 2024-02-21 12:56 | disposition home or self-care (01) ==
LOC: PM 12:55
PROVIDERS: PCP Family Medicine; Visit Provider Nurse Practitioner
DX: M48.062 Spinal stenosis, lumbar region with neurogenic claudication (principal); M54.16 Radiculopathy, lumbar region
CPT/HCPCS: G0463

== ENCOUNTER 2024-05-01 14:02 | Outpatient (REF) | payer OTHER, MEDICARE, SELFPAY ==
[2024-05-01 15:14] LABS: Bilirubin Urine NEGATIVE (NEGATIVE); Blood Urine MODERATE (NEGATIVE); Clarity Urine TURBID (CLEAR); Color Urine YELLOW (YELLOW); Glucose Urine UA NEGATIVE (NEGATIVE); Ketones Urine NEGATIVE (NEGATIVE); Leukocyte Esterase Urine LARGE (NEGATIVE); Nitrite Urine NEGATIVE (NEGATIVE); Protein Urine >=300 mg/dL (NEG/TRACE); Specific Gravity Urine 1.025 (1.005-1.025); Urobilinogen Urine 0.2 EU/dL (0.2-1.0)
== END 2024-05-01 14:03 | disposition home or self-care (01) ==
LOC: LAB 14:02
PROVIDERS: PCP Family Medicine
DX: E46 Unspecified protein-calorie malnutrition (principal); R82.998 Other abnormal findings in urine
CPT/HCPCS: 81003; 87086; 87150; 87186

== ENCOUNTER 2024-05-24 15:47 | Emergency (ER) | payer OTHER, MEDICARE, SELFPAY ==
--- OUTSIDE RECORDS SUMMARY | 2024-05-24 16:01 | XMS_ITS | CCD ---
Author Organization [facility] CliniSyct Care Team Providers Care Cash Application Clerk Name Role Phone PHYSICIAN, DEFAULT Unavailable Unavailable PHYSICIAN, DEFAULT Unavailable Unavailable SNEHA, DEEP Unavailable Unavailable PHYSICIAN, DEFAULT Unavailable Unavailable PHYSICIAN, DEFAULT Unavailable Unavailable SNEHA, DEEP Unavailable Unavailable UNKNOWN, PROVIDER Unavailable Unavailable UNKNOWN, PROVIDER Unavailable Unavailable SNEHA, DEEP Unavailable Unavailable RAMON MARTINES Unavailable Unavailable ISAI Campo Attending Provider Sanaz Campo Unavailable DO Jose Eduardo Murray Attending Provider [phone] MD Ramon Martines Primary Care Provider BOBBI, DR RAMON Chen Primary Care Unavailable NADEREElsie, DR RAMON Chen Consulting Unavailable NADEREElsie, DR RAMON Chen Attending Unavailable NADEREElsie, DR RAMON Chen Admitting Unavailable NADERER, DR RAMON Chen Primary Care Unavailable NADERER, DR RAMON Chen Consulting Unavailable NADEREElsie, DR RAMON Chen Attending Unavailable NADEREElsie, DR RAMON Chen Admitting Unavailable MISC, DR MOORE Admitting Unavailable MISC, DR MOORE Consulting Unavailable MISC, DR MOORE Attending Unavailable NADEREElsie, DR RAMON Chen Primary Care Unavailable NADERER, DR RAMON Chen Primary Care Unavailable NADERER, DR RAMON Chen Attending Unavailable NADEREElsie, DR [...] Campo Attending Unavailable Jose Eduardo Murray Attending Ramon Johnson Primary Care Unavailable Jose Eduardo Murray Admitting Unavailteodora Martines, Ramon Admitting Unavailable Ramon Martines Primary Care Unavailable Bobbi, Ramon Attending Unavailable RAMON MARTINES Primary Care Physician MIKE HILARIO Referring Unavailable JOAQUÍN NELSON Attending Unavailable HARRY, MIKE Attending Unavailable HARRY, MIKE Referring Unavailable HARRY, MIKE Referring Unavailable ЕЛЕНА LOU Attending Unavailable HARRY, MIKE Attending Unavailable HARRY, MIKE Attending Unavailable HARRY, MIKE Admitting Unavailable HARRY, MIKE Attending Unavailable BUTLER, Deven Zimmerman Attending Unavailable BUTLER, Deven Zimmerman Attending Unavailable BUTLER, Deven Zimmerman Attending Unavailable BUTLER, Deven Zimmerman Referring Unavailable BUTLER, Deven Zimmermna Admitting Unavailable BUTLER, Deven Zimmerman Attending Unavailable Allergies Allergy Classification Reported Allergen(s) Allergy Type Date of Onset Reaction(s) Facility (1 source) 01102,00 Drug allergy (disorder) 11-15-2010 [facility] Repository Medications Current Medications Medication Drug Class(es) Dates Sig (Normalized) Sig (Original) Aspirin (1 source) Platelet Aggregation Inhibitor, Nonsteroidal Anti-inflammatory Drug Aspirin 81 Active citalopram 10 mg oral tablet (2 sources) Serotonin Reuptake Inhibitor Start: 12-01-2023 citalopram 10 mg Tab Refills(s) 0 Start Date: 12/01/23 Status: Ordered docusate sodium 100 mg oral capsule (2 sources) Start: 12-01-2023 take 1 capsule by mouth twice daily as needed for constipation docusate sodium 100 mg Cap 100 mg = 1 cap(s), Oral, BID, PRN for constipation, # 20 cap(s), Refills(s) 0 Start Date: 12/01/23 Status: Ordered donepezil (1 source) Donepezil HCl Active Flonase (2 sources) Corticosteroid Start: 12-01-2023 Flonase mcg, Daily, Refill(s) 0 Start Date: 12/01/23 Status: Ordered gabapentin 300 mg oral capsule (2 sources) Anti-epileptic Agent Start: 12-01-2023 gabapentin 300 mg Cap Refills(s) 0 Start Date: 12/01/23 Status: Ordered hydrALAZINE hydrochloride 25 mg oral tablet (2 sources) Arteriolar Vasodilator Start: 12-01-2023 take 1 mg by mouth four times daily hydrALAZINE 25 mg Tab mg tab(s), Oral, QID, Refills(s) 0 Start Date: 12/01/23 Status: Ordered hydroCHLOROthiazide 25 mg / lisinopril 20 mg oral tablet (3 sources) Thiazide Diuretic, Angiotensin Converting Enzyme Inhibitor Start: 12-01-2023 hydrochlorothia zide-lisinopril 25 mg-20 mg Tab Refill(s) 0 Start Date: 12/01/23 Status: Ordered Lisinopril-hydro CHLOROthiazide Active 24 hr isosorbide mononitrate 60 mg extended release oral tablet (3 sources) Nitrate Vasodilator Start: 12-01-2023 isosorbide mononitrate 60 mg ER Tab Refills(s) 0 Start Date: 12/01/23 Status: Ordered Isosorbide Weldon itrate ER Active latanoprost (3 sources) Prostaglandin Analog Start: 12-01-[address] ophthalmic qPM, Refill(s) 0 Start Date: 12/01/23 Status: Ordered Latanoprost Acti ve Claritin (2 sources) Start: 12-01-2023 Claritin Daily , Refills(s) 0 Start Date: 12/01/23 Status: Ordered lovastatin 40 mg oral tablet (3 sources) HMG-CoA Reductase Inhibitor Start: 12-01-2023 lovastatin 40 mg Tab Refills(s) 0 Start Date: 12/01/23 Status: Ordered Lovastatin Activ e metFORMIN hydrochloride 500 mg oral tablet (3 sources) Biguanide Start: 12-01-2023 take 1 mg by mouth once daily metformin 500 mg ER Tab mg tab(s), Oral, Daily, Refills(s) 0 Start Date: 12/01/23 Status: Ordered metFORMIN HCl Ac tive Metoprolol (1 source) beta-Adrenergic Chandler Metoprol ol Succinate ER Active Naproxen (1 source) Nonsteroidal Anti-inflammatory Drug Naproxen Active omeprazole 40 mg delayed release oral capsule (2 sources) Proton Pump Inhibitor Start: take 1 mg by mouth once daily omeprazole 40 mg Cap-DR mg cap(s), Oral, Daily, Refills(s) 0 Start Date: 12/01/23 Status: Ordered 24 hr oxybutynin chloride 10 mg extended release oral tablet (3 sources) Cholinergic Muscarinic Antagonist Start: take 2 tablets by mouth once daily oxybutynin 10 mg ER Tab 20 mg = 2 tab(s), Oral, Daily, # 60 tab(s), Refills(s) 11, Pharmacy: [id number], 177, cm, 01/30/24 11:11:00 EDT, Height/Length Dosing, 85, kg, 12/01/23 9:25:00 EST, Weight Dosing Start Date: 01/30/24 Status: Ordered Start: 12-01-2023 take 1 mg by mouth once daily oxybutynin 15 mg ER Tab mg tab(s), Oral, Daily, Refills(s) 0 Start Date: 12/01/23 Status: Ordered Miralax (2 sources) Osmotic Laxative Start: 12-01-2023 take 1 g by mouth once daily MiraLax gm, Oral, Daily, Refill(s) 0 Start Date: 12/01/23 Status: Ordered PreserVision AREDS (1 source) PreserVision ARE DS Active sodium chloride 1000 mg oral tablet (2 sources) Start: 12-01-2023 sodium chlorid e 1000 mg oral tablet, soluble Refill(s) 0 Start Date: 12/01/23 Status: Ordered tamsulosin hydrochloride 0.4 mg oral capsule (3 sources) alpha-Adrenergic Chandler Start: 12-01-2023 take 1 mg by mouth once daily tamsulosin 0.4 mg Cap mg cap(s), Oral, Daily, Refills(s) 0 Start Date: 12/01/23 Status: Ordered Tamsulosin HCl A ctive Wrist Brace - (1 source) Start: 09-05-2022 Wrist Brace - as directed Aug, Active Zinc (2 sources) Start: 12-01-2023 take 1 mg by mouth o nce daily Zinc mg, Oral, Daily, Refills(s) 0 Start Date: 12/01/23 Status: Ordered Completed/Discontinued Medications Medication Drug Class(es) Dates Sig (Normalized) Sig (Original) ciprofloxacin 250 mg oral tablet (2 sources) Quinolone Antimicrobial Start: 12-01-2023 take 1 tablet by mouth once daily Cipro 250 mg Tab 250 mg = 1 tab(s), Oral, Daily, Take 1 tablet the day before the procedure and 1 tablet after the procedure, # 2 tab(s), Refills(s) 0, Pharmacy: [id number], 177, cm, 12/01/23 9:25:00 EST, Height/Length Dosing, 85, kg, 12/01/23 9:25:00 EST, Weight Dosing Start Date: 12/01/23 Status: Ordered Problems Active Problems Problem Classification Problem Date Documented Date Episodic/Chronic Cancer of prostate (3 sources) Personal history of malignant neoplasm of prostate; Translations: [History of malignant neoplasm of prostate] Onset: 12-01-2023 Episodic Cardiac dysrhythmias (3 sources) Unspecified atrial fibrillation; Translations: [Sick sinus syndrome] Onset: 05-29-2018 Chronic Conditions associated with dizziness or vertigo (4 sources) Dizziness and giddiness; Translations: [Benign paroxysmal vertigo, unspecified ear] Onset: 12-26-2022 Episodic Conduction disorders (2 sources) Presence of cardiac pacemaker; Translations: [Presence of cardiac pacemaker] Onset: 10-11-2023 Chronic Coronary atherosclerosis and other heart disease (4 sources) Atherosclerotic heart disease of [place] coronary artery with unstable angina pectoris; Translations: [ATHSCL HEART DISEASE OF [place] COR ART W UNSTABLE ANG PCTRS] Onset: 05-29-2018 Chronic Delirium, dementia, and amnestic and other cognitive disorders (4 sources) Alzheimer's disease with late onset; Translations: [ALZHEIMERS DISEASE WITH LATE ONSET] Onset: 12-21-2022 Chronic Diabetes mellitus with complications (4 sources) Type 2 diabetes mellitus with hyperglycemia; Translations: [TYPE 2 DM W/HYPERGLYCEMIA] Onset: 09-26-2022 Chronic Diabetes mellitus without complication (4 sources) Type 2 diabetes mellitus without complications; Translations: [Diabetes mellitus] Onset: 05-29-2018 03-02-2020 Chronic Disorders of lipid metabolism (2 sources) Hyperlipidemia, unspecified; Translations: [HYPERLIPIDEMIA, UNSPECIFIED] Onset: 05-29-2018 Chronic Esophageal disorders (2 sources) Gastro-esophageal reflux disease without esophagitis; Translations: [GASTRO-ESOPHAGEAL REFLUX DISEASE WITHOUT ESOPHAGITIS] Onset: 05-29-2018 Chronic Essential hypertension (6 sources) Essential (primary) hypertension; Translations: [ESSENTIAL (PRIMARY) HYPERTENSION] Onset: 05-29-2018 Chronic Genitourinary symptoms and ill-defined conditions (3 sources) Incontinence without sensory awareness; Translations: [Incontinence without sensory awareness] Onset: 12-01-2023 Chronic Genitourinary symptoms and ill-defined conditions (3 sources) History of urinary tract infection; Translations: [Personal history of urinary (tract) infections] Onset: 12-01-2023 Episodic Glaucoma (2 sources) Glaucoma 03-02-2020 Chronic Hyperplasia of prostate (3 sources) Benign prostatic hypertrophy with outflow obstruction; Translations: [Benign prostatic hyperplasia with lower urinary tract symptoms] Onset: 12-01-2023 Chronic Osteoarthritis (2 sources) Arthritis 03-02-2020 Chronic Other aftercare (1 source) long term care pharmacist (current) use of antithrombotics/antip latelets; Translations: [STATISTICAL MODELER (CURRENT) USE OF ANTITHROMBOTICS/ANTIP LATELETS] Onset: 05-29-2018 Episodic Other aftercare (2 sources) [facility] (current) use of aspirin; Translations: [NURSING HOME (CURRENT) USE OF ASPIRIN] Onset: 05-29-2018 Episodic Other aftercare (1 source) Other usp (current) drug therapy; Translations: [OTH STATISTICAL MODELER CURRENT DRUG THERAPY] Onset: 12-28-2022 Episodic Other aftercare (1 source) [facility] (current) use of oral hypoglycemic drugs; Translations: [STATISTICAL MODELER USE ORAL HYPOGLYCEMIC DX] Onset: 12-28-2022 Episodic Other and ill-defined heart disease (2 sources) Heart disease 03-02-2020 Chronic Other diseases of bladder and urethra (1 source) Detrusor overactivity; Translations: [Overactive bladder] Onset: 12-01-2023 Chronic Other diseases of bladder and urethra (2 sources) Overactive bladder 12-01-2023 Chronic Other ear and sense organ disorders (2 sources) Hearing loss 03-02-2020 Chronic Other injuries and conditions due to external causes (1 source) Unspecified injury of left wrist, hand and finger(s), initial encounter Episodic Other male genital disorders (2 sources) Impotence 03-02-2020 Chronic Other nervous system disorders [...] (current) use of oral hypoglycemic drugs; Translations: [NURSING HOME (CURRENT) USE OF ORAL HYPOGLYCEMIC DRUGS] Onset: 05-29-2018 Unclassified (1 source) Alzheimer's disease with late onset; Translations: [Alzheimer's disease with late onset] Onset: 01-06-2023 Unclassified (1 source) Unspecified injury of left wrist, hand and finger(s), initial encounter; Translations: [Unspecified injury of left wrist, hand and finger(s), initial encounter] Onset: 09-05-2022 Unclassified (2 sources) Drug therapy finding 03-02-2020 Past or Other Problems Problem Classification Problem Date Documented Da te Episodic/Chronic Cardiac dysrhythmias (3 sources) Bradycardia, unspecified; Translations: [BRADYCARDIA UNSPECIFIED] Onset: 12-28-2022 Episodic Results Test Name Value Interpretation Reference Range Facility Office Visiton 04-02-2024 Follow-up visit [id number] Edwin Orourke 1935 M Date Provider Department Center 04/02/2024 MIKE CASTILLO [facility] No family history on file Level of Service:38163 AR OFFICE/OUTPATIENT ESTABLISHED LOW MDM 20 MIN Normal [facility] Consent for Procedure/Surger yon 01-30-2024 Consent for Procedure/Surger y [id number] Normal [facility] Consent for Treatmenton 01-14 Consent for Treatment [id number]#1.00TIFF Normal [facility] IntraOperative Documentson 0 01-30-2024 IntraOperative Documents [id number]#1.00TIFF [facility] IntraOperative Documents [id number]#1.00TIFF [facility] Main OR Intraoperative Recor don 01-30-2024 Main OR Intraoperative Record IntraOp Document Type FTURO Summary Primary Physician: Deven BUTLER MD Finalized Date/Time: 01/30/24 11:23:13 Pt. Name: JORGITO OROURKEFRIEDA Henning/Sex: 1935 Male Med Rec #: [id number] Physician: Deven BUTLER MD Financial #: [id number] Pt. Type: O Room/Bed: / Admit/Disch: 01/30/24 09:23:33 - Institution: Case Times FTURO Entry 1 Patient Times In Room 01/30/24 11:17:00 Out Room 01/30/24 11:29:00 Procedure Times Start 01/30/24 11:19:00 Stop 01/30/24 11:24:00 Anesthesia Times Last Modified By: Sweta MIRZA, TIFFANYOR, Zaria 01/30/24 11:22:58 Case Attendance FTURO Entry 1 Entry 2 Entry 3 Case Attendee Deven BUTLER MD RN, CNOR, Sumit DAVIS, Priscilla Enciso Role Performed Surgeon - Primary Glassware Verifier - Primary Scrub - Primary Time In 01/30/24 11:17:00 01/30/24 11:17:00 01/30/24 11:17:00 Time Out 01/30/24 11:29:00 01/30/24 11:29:00 01/30/24 11:29:00 Procedure CYSTOSCOPY LOCAL(.) CYSTOSCOPY LOCAL(.) CYSTOSCOPY LOCAL(.) Comments Last Modified By: Sweta RN, CNOR, Sweta RN, CNOR, Sweta RN, TIFFANYOR, Zaria 01/30/24 Zaria 01/30/24 Zaria 01/30/24 11:22:59 11:22:59 11:22:59 Surgical Procedures FTURO Entry 1 Procedure Description Procedure CYSTOSCOPY LOCAL Modifiers . Surgeon Description CYSTO Primary Procedure Yes Primary Surgeon Deven BUTLER MD Start 01/30/24 11:19:00 Stop 01/30/24 11:24:00 Anesthesia Type Local Surgical Service Urology Wound Class 2 - Clean-Contaminated Last Modified By: MARKEL Sol RN, Ruthann 01/30/24 11:23:00 General Case Data FTURO Pre-Care Text: Classifies surgical wound, implements aseptic technique, initiates traffic control Entry 1 Case Information OR URO 1 FT Case Level None Wound Class 2 - Clean-Contaminated Specialty Urology Preop Diagnosis OVERACTIVE BLADDER, BPH Postop Same As Preop No WITH OBSTRUCTION, INCONTINENCE WITHOUT AWARENESS Postop Diagnosis OVERACTIVE BLADDER, BPH Outcomes Met? Yes Last Modified By: MARKEL Sol RN, Ruthann 01/30/24 11:21:11 Post-Care Text: The patient is free from signs and symptoms of infection EU IntraOp - FTURO Pre-Care Text: Implements protective measures prior to operative or invasive procedure, confirms identity before the operative or invasive procedure, verifies operative procedure, surgical site, and laterality Entry 1 EU Perioperative Protocols Procedure(s) CYSTOSCOPY LOCAL(.) Patient Identity Birthday, ID Band Verified (select at Check, Patient least 2): Participation Consents / H and P HandP, Surgery/Procedure Operative Site N/A Verified Consent Marking Verified Surgical Site Yes Laterality Verified n/a Verified Procedure Verified Yes Correct Patient Yes Position Verified Availability Equipment, Medication Time Out MÓNICA STEPHENSON, Deven Zimmerman, Verified (If Participants Sweta MIRZA, TIFFANYOR, Applicable) Sumit Enciso LPN, Jessica D Time Out Complete 01/30/24 11:18:00 Allergies Reviewed? Yes Allergies Reviewed Self/Patient With Body Position Supine Prep Area penis Prep Agents Betadine Solution Skin. Condition Unable to Visualize Additional None Specimens Collected Vitals - EU Blood Pressure 190/85 Pulse 75 bpm Respirations SPO2 EBL 0 IandO - EU Total Intake 0 mL Total Output 0 mL Outcomes Met? Yes Last Modified By: MARKEL Sol RN, Ruthann 01/30/24 11:22:46 Post-Care Text: The patient is free from signs and symptoms of injury caused by extraneous objects Sign Out FTURO Entry 1 Before Patient Leaves OR Nurse verbally Yes Nurse verbally n/a confirms with the confirms with the team the name of team that the procedure(s) instrument, sponge, recorded and needle counts are correct (or N/A) Nurse verbally n/a Nurse verbally n/a confirms with the confirms with the team how the team whether there specimen is labeled are any equipment (including patient problems to be name), if applicable addressed Sign Out Complete 01/30/24 11:27:00 Last Modified By: MARKEL Sol RN, Ruthann 01/30/24 11:23:11 Case Comments Finalized By: MARKEL Sol RN, Ruthann Document Signatures Signed By: MARKEL Sol RN, Ruthann 01/30/24 11:23 Normal [facility] Main OR Preoperative Recordo n 01-30-2024 Main OR Preoperative Record Holding Area Document Type FTURO Summary Primary Physician: Deven BUTLER MD Finalized Date/Time: 01/30/24 11:20:16 Pt. Name: EDWIN OROURKE Elsie [place]./Sex: 1935 Male Med Rec #: [id number] Physician: Deven BUTLER MD Financial #: [id number] Pt. Type: O Room/Bed: / Admit/Disch: 01/30/24 09:23:33 - Institution: Case Times Holding FTURO Pre-Care Text: Verifies consent for planned procedure, identifies individual values and wishes concerning care, includes family members in perioperative teaching Secures patient's records' belongings, and valuables, maintains patient's dignity and privacy, and maintains patient confidentiality Entry 1 In Holding 01/30/24 11:07:00 Outcomes Met? Yes Last Modified By: Jaylene Castillo RN 01/30/24 11:07:29 Post-Care Text: The patient participates in decisions affecting his or her perioperative plan of care The patient's right to privacy is maintained Surgery Checklist FTURO Entry 1 Patient Birthday, ID Band Procedure History and Physical, Identification: Check, Patient Verification: Surgical Consent, With Participation Patient NPO after Midnight: n/a Personal Items: Glasses, Pacemaker Personal Items GLASSES; PACEMAKER Limitations: USES WALKER AT HOME; Comment: WHEELCHAIR FOR LONGER DISTANCES Complaints of Pain: Yes Pain Comment: BACK 03/25 Skin Integrity Dry, Warm Vitals - EU Blood Pressure 190/85 Pulse 75 bpm Respirations 16 br/min SPO2 97 % Additional None RN Reviewed Yes Specimens Collected Last Modified By: Jaylene Castillo RN 01/30/24 11:10:30 Finalized By: Jaylene Castillo RN Document Signatures Signed By: Jaylene Castillo RN 01/30/24 11:10 Jaylene Castillo RN 01/30/24 11:11 Jaylene Castillo RN 01/30/24 11:20 Normal [facility] Operative Reporton Operative Report Patient: EDWIN OROURKE Age: 89 years Sex: Male : 1935 Associated Diagnoses: None Author: Deven BUTLER MD Procedure Operative Information Details: Date/ Time: 01/30/2024 11:26:00. Pre-Op Dx: Urgency Incontinence - N39.41, Hx of Prostate CA - Z85.46, Incomplete Bladder Emptying - R39.14. Post-Op Dx: Same. Anesthesia Type: Local. Procedure: Local Cystoscopy. Complications: None. Risks/Benefits/Informed Consent: Surgical risks, benefits, details of the procedure have been explained to the patient, Full informed consent has been obtained. Intraoperative Information Prepped: Patient is brought back to the endoscopy suite, Patient is placed in supine position, Patient prepped in the usual fashion with Betadine solution, 2% Xylocaine Jelly is placed per Urethra, After waiting several minutes the Cystoscope is introduced. The Urethra is: Normal. The Prostatic Urethra is: Moderate Hypertrophy. The Bladder is: Abnormal, Trabeculated (Severe (3), Diffuse open diverticuli. No bladder tumors.). The ureteral orifices: Show efflux of clear urine. Devices Implanted: None. Removal: Cystoscope is removed, The patient tolerated it well. Postoperative Information Discharge: Patient is discharged home with antibiotic coverage, Follow up arranged. He will continue his 15 mg of oxybutynin ER. We will attempt to add Myrbetriq 25 mg daily. Follow-up will be in 4 months for reevaluation.. Due to his somewhat labile blood pressure, we will not start Myrbetriq. We will attempt to raise his dose of oxybutynin ER to 20 mg daily. Normal [facility] Comment on above: Result Comment: Electronically Signed By : Deven BUTLER MD\.br\Date and Time Signed: 01/30/24 11:30 EDT Outpatient Surgery Discharge Instructionon 01-30-2024 Outpatient Surgery Discharge Instruction [id number] Quinten [facility] Progress Note-Physicianon Progress Note-Physician Patient: EDWIN OROURKE Age: 89 years Sex: Male : 1935 Associated Diagnoses: None Author: MÓNICA STEPHENSON, Deven Zimmerman Subjective X this gentleman has urinary urge incontinence and some degree of incontinence without sensory awareness. He does take oxybutynin ER 15 mg a day. His urodynamics showed that he had moderate bladder pressure and a fairly low flow rate. He had a mild postvoid residual of 260 cc. Cystoscopy revealed that his prostate was not totally obstructing. He had severe bladder damage but no bladder tumors. Review of Systems ROS reviewed as documented in chart Health Status Allergies: Allergic Reactions (Selected) No Known Allergies Current medications: Home Medications (19) Active Cipro 250 mg Tab 250 mg = 1 tab(s), Oral, Daily citalopram 10 mg Tab Claritin , Daily docusate sodium 100 mg Cap 100 mg = 1 cap(s), PRN, Oral, BID Flonase , Daily gabapentin 300 mg Cap hydrALAZINE 25 mg Tab , Oral, QID hydrochlorothiazide-lisinopril 25 mg-20 mg Tab isosorbide mononitrate 60 mg ER Tab latanoprost ophthalmic , qPM lovastatin 40 mg Tab metformin 500 mg ER Tab , Oral, Daily MiraLax , Oral, Daily omeprazole 40 mg Cap-DR , Oral, Daily oxybutynin 10 mg ER Tab 20 mg = 2 tab(s), Oral, Daily oxybutynin 15 mg ER Tab , Oral, Daily sodium chloride 1000 mg oral tablet, soluble tamsulosin 0.4 mg Cap , Oral, Daily Zinc , Oral, Daily Problem list: All Problems Arthritis / SNOMED CT 2995959 / Confirmed History of prostate cancer / SNOMED CT 4004574722 / Confirmed Deafness / SNOMED CT 71430932 / Confirmed Diabetes / SNOMED CT 277784899 / Confirmed Glaucoma / SNOMED CT 20523640 / Confirmed Heart disease / SNOMED CT 56511683 / Confirmed Erectile dysfunction / SNOMED CT 8004741725 / Confirmed BPH with urinary obstruction / SNOMED CT 1854440419 / Confirmed Anticoagulated / SNOMED CT 847153997 / Confirmed OAB (overactive bladder) / SNOMED CT 5218907881 / Confirmed Incontinence without sensory awareness / SNOMED CT 6810117210 / Confirmed History of UTI / SNOMED CT 2383417839 / Confirmed Histories Past Medical History: No active or resolved past medical history items have been selected or recorded. Family History: Procedure history: Appendectomy (277058797). CE - Cataract extraction ([id number]). Placement of stent in cardiac conduit ([id number]). Arthroplasty of knee bilateral (67788021). Implantation of radioactive seed into prostate (9071068040). Social History Social & Psychosocial Habits Alcohol 12/01/2023 Risk Assessment: Denies Alcohol Use Tobacco 12/01/2023 Risk Assessment: Denies Tobacco Use 12/01/2023 Tobacco Use: Never (less than 100 in l Type: Cigarettes . Objective He is resting comfortably and in no acute distress. Abdomen is soft and nontender. External genitalia are unremarkable. Impression and Plan Impression: #1. This gentleman has urinary urge incontinence which is not totally controlled with 15 mg of oxybutynin ER. 2. He has a history of prostate cancer for which he had brachytherapy in the distant past. Plan: #1. We are unable to use Myrbetriq due to his labile blood pressure. We are going to attempt to increase his oxybutynin ER to 20 mg daily. We will reevaluate in 4 months. Normal [facility] Comment on above: Result Comment: Electronically Signed By : MÓNICA STEPHENSON, Deven Lyons.idalia\Date and Time Signed: 01/30/24 11:35 EDT Office Visiton 12-26-2023 Follow-up visit [id number] Edwin Orourke 1935 M Date Provider Department Center 12/26/2023 MIKE CASTILLO [facility] No family history on file Level of Service:52061 AR OFFICE/OUTPATIENT ESTABLISHED LOW MDM 20 MIN Normal [facility] Ambulatory Visit Summaryon 0 12-01-2023 Ambulatory Visit Summary EDWIN OROURKE :1935 Visit Date:12/01/2023 Ambulatory Visit Instructions Your Diagnosis History of prostate cancer 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 ? (more content not included)... Normal [facility] Home Recordson 12-01 Usp Records [id number]#1.00TIFF Normal [facility] Usp Records [id number]#1.00TIFF Normal [facility] Patient Educationon 12-01-19 24 Patient Education Urology Urinary Incontinence Urinary incontinence [...] stimulation). ? For women, using a medical center representative to prevent urine leaks. This is a [...] urine. ? (more content not included)... Normal [facility] Urology Office/Clinic Noteon 12-01-2023 Urology Office/Clinic Note [...] urination but after he went to the [facility] on 10/17/23 the catheter was removed within [...] here with his today. Residing at [facility]. 1. History of prostate cancer (Z85.46: Personal history of malignant neoplasm of prostate) PSA: 02/06/20 - <0.05 Latest PSA on file. S/p brachytherapy approx. 20 years ago. 2. 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 MD staff has been providing pt with laxatives. reports pt has back issues. States the reason he is at [facility] is due to the inability to walk. [...] Contact Information MÓNICA STEPHENSON, Deven Zimmerman, URL [address] [place] [address]- Additional Instructions: Scheduling cysto and uro's Patient Education Urinary Incontinence I, Shena Taylor, personally scribed for Dr. Butler on 12/01/2023 10:07:45. Elect (more content not included)... [facility] Comment on above: Result Comment: Electronically Signed By : Deven BUTLER MD\.br\Date and Time Signed: 12/01/23 10:12 EST\.br\Electronically Co-Signed By: Shena Taylor\.br\Date and Time Co-Signed: 12/01/23 10:08 EST Lab Reportson 10-18-2023 Lab Reports [id number]#1.00TIFF [facility] Lab Reportson 10-17-2023 Lab Reports [id number]#1.00TIFF [facility] Lab Reports [id number]#1.00TIFF [facility] Lab Reports [id number]#1.00TIFF [facility] Lab Reports [id number]#1.00TIFF Normal [facility] Lab Reports [id number]#1.00TIFF Normal [facility] Lab Reports [id number]#1.00TIFF Normal [facility] Lab Reports [id number]#1.00TIFF Normal [facility] Lab Reports [id number]#1.00TIFF Normal [facility] Lab Reports [id number]#1.00TIFF Normal [facility] Office Visiton 10-11-2023 Follow-up visit [id number] Edwin Orourke 1935 [facility] Provider Department Center 10/11/2023 ЕЛЕНА SALMON [facility] No family history on file Level of Service:74346 AR POSTOP FOLLOW UP VISIT RELATED TO ORIGINAL PX Normal [facility] HPon 10-02-2023 [facility] Electrophysiology Note Reason for visit: bradycardia HPI: Edwin Elsie Orourke is a 88 y.o. with PMH [...] discontinued due to having ER visit with [facility] for complaints of dizziness and was [...] ECG 05/04/2018: Atrial fibrillation, possible old septal OH. ECG 05/28/2018 showed sinus rhythm with 1st degree AV block and PAC. Possible anteroseptal OH. ECG today 03/21/2019: sinus rhythm with 1st [...] abuse, Hematolog (more content not included)... [facility] NURSNOTEon 10-02-2023 NURSNOTDidier RN educated pt on d/ c instructions. RN encouraged pt to voice any questions or concerns. Pt verbalizes no questions or concerns at this time. Pt was wheeled off of unit with all of belongings. [facility] YAA CHG wipes and betadi ne nasal swabs completed. Normal [facility] Orders Onlyon 10-02-2023 Orders Only [id number] Edwin Orourke 1935 [facility] Provider Department Center 10/02/2023 EMETERIO GONZALEZ [facility] No family history on file Normal [facility] Orders Onlyon 09-25-2023 Orders Only [id number] Edwin Orourke 1935 [facility] Provider Department Center 09/25/2023 EMETERIO GONZALEZ [facility] No family history on file [facility] Telemedicineon 08-22-2023 Telemedicine [id number] Edwin Orourke 1935 [facility] Provider Department Center 08/22/2023 MIKE CASTILLO [facility] No family history on file Level of Service:90602 AR PHYS/QHP TELEPHONE EVALUATION 11-20 MIN [facility] 36on 07-27-2023 36 No vm [facility] Office Visiton 04-26-2023 Follow-up visit [id number] Edwin Orourke 1935 [facility] Provider Department Center 04/26/2023 JOAQUÍN LERMA [facility] No family history on file Level of Service:95469 AR OFFICE/OUTPATIENT ESTABLISHED MOD MDM 30-39 MIN Reason for Visit and Comments: Follow-up [056340] - 2 month follow up [facility] MR lumbar spine wo conon MR lumbar spine wo [facility] [place] [address] MRI Report Signed Patient: Edwin Orourke MR#: [id number] : 1935 Acct:[id number] Age/Sex: 88 / M ADM Date: 03/24/23 Loc: MR Room: Type: [facility] Attending Dr: Ramon Martines MD Copies to: [...] Mamta Barrios M.D.03/25/2023 2:26 PM Dictation Location: [place] [address] Transcribed By: MEGAN 03/25/231425 Dictated By: Mamta Barrios II, MD 03/25/23 1419 Signed By: 03/25/23 142 [facility] PROF CHEM 8 (BAS MET)on Anion gap [Moles/Vol] 10.7 mmol/L Normal [facility] Comment on above: Performed By: #### TSH #### [facility] [address] [place] [address] Dr. Yue Vega Calcium [Mass/Vol] 9.4 mg/dL Normal 8.5-10.1 [facility] Comment on above: Performed By: #### TSH #### [facility] [address] [place] [address] [address] Yue Vega Chloride [Moles/Vol] 97 mmol/L Critically low 98-107 [facility] Comment on above: Performed By: #### TSH #### [facility] [address] [place] [address] [address] Yue Vega CO2 [Moles/Vol] 31.8 mmol/L Normal 21.0-32.0 [facility] Comment on above: Performed By: #### TSH #### [facility] [address] [address] [address] Yue Vega Creatinine [Mass/Vol] 1.23 mg/dL Normal 0.70-1.30 [facility] Comment on above: Performed By: #### TSH #### [facility] [address] [address] [address] Yue Vega EGFR-AF GUAMANIAN >60 Normal >=60 [facility] Comment on above: Performed By: #### TSH #### [facility] [address] [place] [address] [address] Yue Vega EGFR-NON AF GUAMANIAN 56 mL/min/1.73m2 Critically low >=60 [facility] Comment on above: Performed By: #### TSH #### [facility] [address] [address] [address] Yue Vega Glucose [Mass/Vol] 153 mg/dL Critically high 74-106 [facility] Comment on above: Performed By: #### TSH #### [facility] [address] [address] [address] Yue Vega Potassium [Moles/Vol] 4.5 mmol/L Normal 3.5-5.1 [facility] Comment on above: Performed By: #### TSH #### [facility] [address] [place] [address] [address] Yue Vega Sodium [Moles/Vol] 135 mmol/L Critically low 136-145 [facility] Comment on above: Performed By: #### TSH #### [facility] [address] [place] [address] [address] Yue Vega Urea nitrogen [Mass/Vol] 22.0 mg/dL Critically high 7.0-18.0 [facility] Comment on above: Performed By: #### TSH #### [facility] [address] [address] [address] Yue Vega Urea nitrogen/Creatin ine [Mass ratio] 17.9 mg/mg Normal [facility] Comment on above: Performed By: #### TSH #### [facility] [address] [address] [address] Yue Vega Creatinine (Bld) [Mass/Vol]O rdered By: Suzi Murray on 01-06-2023 Creatinine [Mass/Vol] 1.2 mg/dL 0.6-1.3 [facility] Comment on above: ER/ESD physician is notified/shown all I STAT results.Critical values may be confirmed by laboratory testing ifdeemed necessary by ER attending doctor. MR head/brain wo/w conon MR head/brain wo/w con [facility] [place] [address] [place] [address] MRI Report Signed Patient: Edwin Orourke MR#: [id number] : 1935 Acct:[id number] Age/Sex: 87 / M ADM Date: 01/06/23 Loc: MR Room: Type: [facility] Attending Dr: Jose Eduardo Murray DO Copies [...] Mamta Barrios M.D.01/06/2023 5:26 PM Dictation Location: [place] [address] Transcribed By: PWS 01/06/231725 Dictated By: Mamta Barrios II, MD 01/06/231719 Signed By: 01/06/23 172 [facility] BNPon 12-26-2022 Natriuretic peptide B (Bld) [Mass/Vol] 483.0 pg/mL Normal <=1,800.0 [facility] Comment on above: Performed By: #### TSH #### [facility] [address] [place] [address] Dr. Yue Vega CARDIAC MAMTA ADMITon 023 CK [Catalytic activity/Vol] 121 U/L Normal 39-308 [facility] Comment on above: Performed By: #### TSH #### [facility] [address] [place] [address] Dr. Yue Vega CK.MB [Mass/Vol] 1.73 ng/mL Normal <=3.60 [facility] Comment on above: Performed By: #### TSH #### [facility] [address] [place] [address] Dr. Yue Vega HSTROP 11.9 pg/mL Normal 4.0-76.1 [facility] Comment on above: Result Comment: CUT-OFF POINTS HAVE BEEN ESTABLISHED BASED ON THE FOURTH UNIVERSAL DEFINITIONS OF MYOCARDIAL INFARCTION. THE UPPER REFERENCE LIMIT (URL) OF TROPONIN, DEFINED THE 99TH PERCENTILE OF cTnI DISTRIBUTION IN A REFERENCE POPULATION, HAS BEEN CONFIRMED THE DECISION THRESHOLD FOR OH DIAGNOSIS. Performed By: #### T SH #### [facility] [address] [place] [address] Dr. Yue Vega CARI 113 ng/mL Critically high 16-[address] [facility] Comment on above: Performed By: #### TSH #### [facility] [address] [address] [address] Yue Vega CBC AUTO DIFFon 12-26-2022 BASO # 0.1 103/ul Normal 0.0-0.1 [facility] Comment on above: Performed By: #### TSH #### [facility] [address] [place] [address] Dr. Yue Vega Basophils/100 WBC (Bld) 0.5 % Normal 0.2-2.0 [facility] Comment on above: Performed By: #### TSH #### [facility] [address] [place] [address] Dr. Yue Vega EO # 0.0 103/ul Normal 0.0-0.7 [facility] Comment on above: Performed By: #### TSH #### [facility] [address] [place] [address] Dr. Yue Vega Eosinophils/100 WBC (Bld) 0.3 % Critically low 0.9-7.0 [facility] Comment on above: Performed By: #### TSH #### [facility] [address] [place] [address] Dr. Yue Vega Erythrocyte distribution width (RBC) [Ratio] 12.4 % Normal 11.0-15.0 [facility] Comment on above: Performed By: #### TSH #### [facility] [address] [place] [address] Dr. Yue Vega Hematocrit (Bld) [Volume fraction] 42.7 % Normal 42.0-54.0 [facility] Comment on above: Performed By: #### TSH #### [facility] [address] [place] [address] Dr. Yue Vega Hemoglobin (Bld) [Mass/Vol] 14.5 g/dL Normal 14.0-18.0 [facility] Comment on above: Performed By: #### TSH #### [facility] [address] [place] [address] Dr. Yue Vega IG # 0.05 10e3/ul Critically high 0.00-0.03 [facility] Comment on above: Performed By: #### TSH #### [facility] [address] [place] [address] Dr. Yue Vega IG % 0.4 % Normal 0.0-0.5 [facility] Comment on above: Performed By: #### TSH #### [facility] [address] [place] [address] Dr. Yue Vega LYMPH # 1.4 103/ul Normal 1.2-3.8 [facility] Comment on above: Performed By: #### TSH #### [facility] [address] [address] [address] Yue Vega Lymphocytes/100 WBC (Bld) 10.7 % Critically low 20.5-60.0 [facility] Comment on above: Performed By: #### TSH #### [facility] [address] [place] [address] Dr. Yue Vega MANUAL DIFF REQ NO Normal [facility] Comment on above: Performed By: #### TSH #### [facility] [address] [place] [address] Dr. Yue Vega MCH (RBC) [Entitic mass] 30.7 pg Normal 25.9-34.0 [facility] Comment on above: Performed By: #### TSH #### [facility] [address] [place] [address] Dr. Yue Vega MCHC (RBC) [Mass/Vol] 34.0 g/dL Normal 29.9-35.2 [facility] Comment on above: Performed By: #### TSH #### [facility] [address] [place] [address] Dr. Yue Vega MCV (RBC) [Entitic vol] 90.3 fL Normal 80.0-94.0 [facility] Comment on above: Performed By: #### TSH #### [facility] [address] [place] [address] Dr. Yue Vega MONO # 0.5 103/ul Normal 0.3-0.8 [facility] Comment on above: Performed By: #### TSH #### [facility] [address] [place] [address] Dr. Yue Vega Monocytes/100 WBC (Bld) 4.2 % Normal 1.7-12.0 [facility] Comment on above: Performed By: #### TSH #### [facility] [address] [place] [address] Dr. Yue Vega NEUT # 10.8 103/ul Critically high 1.4-6.5 [facility] Comment on above: Performed By: #### TSH #### [facility] [address] [place] [address] [address] Yue Vega Neutrophils/100 WBC (Bld) 83.9 % Critically high 43.0-75.0 [facility] Comment on above: Performed By: #### TSH #### [facility] [address] [place] [address] [address] Yue Vega Platelet mean volume (Bld) [Entitic vol] 9.6 fL Normal 9.5-13.5 [facility] Comment on above: Performed By: #### TSH #### [facility] [address] [address] [address] Yue Vega PLT 223 103/ul Normal 150-450 [facility] Comment on above: Performed By: #### TSH #### [facility] [address] [address] [address] Yue Vega RBC 4.73 106/ul Normal 4.70-6.10 [facility] Comment on above: Performed By: #### TSH #### [facility] [address] [place] [address] [address] Yue Vega WBC 12.9 103/ul Critically high 4.0-11.0 [facility] Comment on above: Performed By: #### TSH #### [facility] [address] [place] [address] [address] HEAD WO CONon [...] SUZI NANCE Date: 2022-12-26 14:21 Normal [facility] ER URINE PROFILEon 3 Bilirubin Ql (U) Negative Normal NEGATIVE [facility] Comment on above: Performed By: #### YAMIL UMICRO #### [facility] [address] [place] [address] Dr. Yue Vega Clarity (U) CLEAR Normal CLEAR [facility] Comment on above: Performed By: #### YAMIL UMICRO #### [facility] [address] [place] [address] Dr. Yue Vega Color (U) LT. YELLOW Normal YELLOW [facility] Comment on above: Performed By: #### YAMIL UMICRO #### [facility] [address] [place] [address] Dr. Yue ALCOCER A micrscopic examina tion will be performed if indicated. Normal [facility] Comment on above: Performed By: #### YAMIL UMICRO #### [facility] [address] [place] [address] Dr. Yue Vega Glucose Ql (U) 250 mg/dl Abnormal NEGATIVE [facility] Comment on above: Performed By: #### YAMIL UMICRO #### [facility] [address] [place] [address] Dr. Yue Vega Hemoglobin Ql (U) Negative Normal NEGATIVE [facility] Comment on above: Performed By: #### YAMIL UMICRO #### [facility] [address] [place] [address] Dr. Yue Vega Ketones Ql (U) Negative Normal NEGATIVE [facility] Comment on above: Performed By: #### YAMIL UMMELVINRO #### [facility] [address] [place] [address] Dr. Yue Vega LEUKOCYTES Negative Normal NEGATIVE [facility] Comment on above: Performed By: #### YAMIL UMICRO #### [facility] [address] [place] [address] Dr. Yue Vega Nitrite Ql (U) Negative Normal NEGATIVE [facility] Comment on above: Performed By: #### ERUR, UMICRO #### [facility] [address] [place] [address] Dr. Yue Vega pH (U) 7.0 [pH] Normal 5-9 [facility] Comment on above: Performed By: #### YAMIL UMICRO #### [facility] [address] [place] [address] Dr. Yue Vega Protein (U) [Mass/Vol] 30 mg/dL Abnormal NEGATIVE/ TRACE [facility] Comment on above: Performed By: #### YAMIL UMICRO #### [facility] [address] [place] [address] Dr. Yue Vega SPEC GRAVITY 1.015 Normal 1.005-<=1. 025 [facility] Comment on above: Performed By: #### YAMIL UMICRO #### [facility] [address] [place] [address] Dr. Yue Vega UR MICRO IND INDICATED Normal [facility] Comment on above: Performed By: #### YAMIL UMICRO #### [facility] [address] [place] [address] Dr. Yue Vega Urobilinogen Qn (U) 0.2 {Anat'U}/dL Normal 0.2 - 1.0 [facility] Comment on above: Performed By: #### YAMIL, UMICRO #### [facility] [address] [place] [address] Dr. Yue Vega PROF 14(COMP METB)on 023 Albumin [Mass/Vol] 4.1 g/dL Normal 3.4-5.0 [facility] Comment on above: Performed By: #### TSH #### [facility] [address] [place] [address] Dr. Yue Vega Albumin/Globulin [Mass ratio] 1.1 {ratio} Normal [facility] Comment on above: Performed By: #### TSH #### [facility] [address] [address] [address] Yue Vega ALP [Catalytic activity/Vol] 110 U/L Normal 46-116 [facility] Comment on above: Performed By: #### TSH #### [facility] [address] [place] [address] [address] Yue Vega ALT [Catalytic activity/Vol] 24 U/L Normal 16-63 [facility] Comment on above: Performed By: #### TSH #### [facility] [address] [address] [address] Yue Vega Anion gap [Moles/Vol] 9.5 mmol/L Normal [facility] Comment on above: Performed By: #### TSH #### [facility] [address] [place] [address] Dr. Yue Vega AST [Catalytic activity/Vol] 25 U/L Normal 15-37 [facility] Comment on above: Performed By: #### TSH #### [facility] [address] [place] [address] Dr. Yue Vega Bilirubin [Mass/Vol] 1.2 mg/dL Critically high 0.2-1.0 [facility] Comment on above: Performed By: #### TSH #### [facility] [address] [place] [address] Dr. Yue Vega Calcium [Mass/Vol] 9.3 mg/dL Normal 8.5-10.1 [facility] Comment on above: Performed By: #### TSH #### [facility] [address] [place] [address] Dr. Yue Vega Chloride [Moles/Vol] 96 mmol/L Critically low 98-107 [facility] Comment on above: Performed By: #### TSH #### [facility] [address] [address] [address] Yue Vega CO2 [Moles/Vol] 29.4 mmol/L Normal 21.0-32.0 [facility] Comment on above: Performed By: #### TSH #### [facility] [address] [address] [address] Yue Vega Creatinine [Mass/Vol] 1.09 mg/dL Normal 0.70-1.30 [facility] Comment on above: Performed By: #### TSH #### [facility] [address] [address] [address] Yue Vega EGFR-AF GUAMANIAN >60 Normal >=60 [facility] Comment on above: Performed By: #### TSH #### [facility] [address] [address] [address] Yue Vega EGFR-NON AF GUAMANIAN >60 Normal >=60 [facility] Comment on above: Performed By: #### TSH #### [facility] [address] [place] [address] Dr. Yue Vega Globulin (S) [Mass/Vol] 3.8 g/dL Normal [facility] Comment on above: Performed By: #### TSH #### [facility] [address] [address] [address] Yue Vega Glucose [Mass/Vol] 218 mg/dL Critically high 74-106 [facility] Comment on above: Performed By: #### TSH #### [facility] [address] [address] [address] Yue Vega Potassium [Moles/Vol] 3.9 mmol/L Normal 3.5-5.1 [facility] Comment on above: Performed By: #### TSH #### [facility] [address] [address] [address] Yue Vega Protein [Mass/Vol] 7.9 g/dL Normal 6.4-8.2 [facility] Comment on above: Performed By: #### TSH #### [facility] [address] [place] [address] Dr. Yue Vega Sodium [Moles/Vol] 131 mmol/L Critically low 136-145 [facility] Comment on above: Performed By: #### TSH #### [facility] [address] [address] [address] Yue Vega Urea nitrogen [Mass/Vol] 19.0 mg/dL Critically high 7.0-18.0 [facility] Comment on above: Performed By: #### TSH #### [facility] [address] [place] [address] Dr. Yue Vega Urea nitrogen/Creatin ine [Mass ratio] 17.4 mg/mg Normal [facility] Comment on above: Performed By: #### TSH #### [facility] [address] [place] [address] Dr. Yue Vega PROTIMEon 12-26-2022 INR Coag (PPP) [Relative time] 1.00 {INR} Normal [facility] Comment on above: Performed By: #### PTT, PT #### [facility] [address] [place] [address] Dr. Yue Vega INR GUIDELINES SEE BELOW Normal [facility] Comment on above: Result Comment: DESIRED INR: 2.0 - 3.0 C ONDITIONS NOT LISTED BELOW 2.5 - 3.5 FOR PROSTHETIC HEART VALVE REPLACEMENT 2.5 - 3.5 RECURRENT THROMBOSIS Performed By: #### P TT, PT #### [facility] [address] [place] [address] Dr. Yue Vega PT Coag (PPP) [Time] 10.6 s Normal 9.0-11.6 [facility] Comment on above: Performed By: #### PTT, PT #### [facility] [address] [place] [address] Dr. Yue Vega PTTon 12-26-2022 aPTT Coag (Bld) [Time] 29.8 s Normal 22.3-36.2 [facility] Comment on above: Performed By: #### PTT, PT #### [facility] [address] [place] [address] Dr. Yue Vega TSHon 12-26-2022 TSH 2.693 uIU/mL Normal 0.358-3.74 0 [facility] Comment on above: Performed By: #### TSH #### [facility] [address] [place] [address] Dr. Yue Vega URINE MICROSCOPIC ONLYon 03- 13-2023 BACTERIA NONE SEEN Normal NONE SEEN [facility] Comment on above: Performed By: #### ERUR, UMICRO #### [facility] [address] [place] [address] Dr. Yue Vega Bacteria identified Cx Nom (U) NOT INDICATED Normal [facility] Comment on above: Performed By: #### ERUR, UMICRO #### [facility] [address] [place] [address] Dr. Yue Vega CAST NONE SEEN Normal NONE SEEN [facility] Comment on above: Performed By: #### ERUR, UMICRO #### [facility] [address] [place] [address] Dr. Yue Vega Crystals LM Nom (Urine sed) NONE SEEN Normal NONE SEEN [facility] Comment on above: Performed By: #### ERUR, UMICRO #### [facility] [address] [place] [address] Dr. Yue Vega Epithelial cells LM Ql (Urine sed) NONE SEEN Normal NONE SEEN /RARE [facility] Comment on above: Performed By: #### YAMIL UMICRO #### [facility] [address] [place] [address] Dr. Yue Vega MUCOUS NONE SEEN Normal NONE SEEN [facility] Comment on above: Performed By: #### ERUElsie UMICRO #### [facility] [address] [place] [address] Dr. Yue Vega RBC 0-2 Normal 0-2 [facility] Comment on above: Performed By: #### YAMIL UMICRO #### [facility] [address] [place] [address] Dr. Yue Vega WBC NONE SEEN Normal NONE SEEN [facility] Comment on above: Performed By: #### YAMIL UMICRO #### [facility] [address] [place] [address] Dr. Yue Vega XR CHEST 1 Von [...] SAYRA GUILLAUME Date: 2022-12-26 13:12 Normal [facility] METHYLMALONIC ACID (MMA)on 0 12-25-2022 Methylmalonic Acid, Serum 180 nmol/L Normal 0-378 [facility] Comment on above: Performed By: #### MMA2 #### [facility] [address] [place] [address] Dr. Yue Vega TSHon 12-21-2022 TSH 2.790 uIU/mL Normal 0.358-3.74 0 [facility] Comment on above: Performed By: #### TSH #### [facility] [address] [place] [address] Dr. Yue Vega VITAMIN B12on 12-21-2022 Cobalamin (Vitamin B12) [Mass/Vol] 919.0 pg/mL Normal 193.0-986. 0 [facility] Comment on above: Performed By: #### TSH #### [facility] [address] [place] [address] Dr. Yue Vega CBC AUTO DIFFon 09-26-2022 BASO # 0.1 103/ul Normal 0.0-0.1 [facility] Comment on above: Performed By: #### CBC #### [facility] [address] [place] [address] Dr. Yue Vega Basophils/100 WBC (Bld) 0.5 % Normal 0.2-2.0 [facility] Comment on above: Performed By: #### CBC #### [facility] [address] [address] [address] Yue Vega EO # 0.2 103/ul Normal 0.0-0.7 [facility] Comment on above: Performed By: #### CBC #### [facility] [address] [place] [address] Dr. Yue Vega Eosinophils/100 WBC (Bld) 2.1 % Normal 0.9-7.0 [facility] Comment on above: Performed By: #### CBC #### [facility] [address] [place] [address] Dr. Yue Vega Erythrocyte distribution width (RBC) [Ratio] 12.3 % Normal 11.0-15.0 [facility] Comment on above: Performed By: #### CBC #### [facility] [address] [place] [address] Dr. Yue Vega Hematocrit (Bld) [Volume fraction] 42.0 % Normal 42.0-54.0 [facility] Comment on above: Performed By: #### CBC #### [facility] [address] [place] [address] Dr. Yue Vega Hemoglobin (Bld) [Mass/Vol] 13.9 g/dL Critically low 14.0-18.0 [facility] Comment on above: Performed By: #### CBC #### [facility] [address] [place] [address] Dr. Yue Vega IG # 0.03 10e3/ul Normal 0.00-0.03 [facility] Comment on above: Performed By: #### CBC #### [facility] [address] [place] [address] Dr. Yue Vega IG % 0.3 % Normal 0.0-0.5 [facility] Comment on above: Performed By: #### CBC #### [facility] [address] [place] [address] Dr. Yue Vega LYMPH # 1.9 103/ul Normal 1.2-3.8 [facility] Comment on above: Performed By: #### CBC #### [facility] [address] [place] [address] Dr. Yue Vega Lymphocytes/100 WBC (Bld) 19.8 % Critically low 20.5-60.0 [facility] Comment on above: Performed By: #### CBC #### [facility] [address] [place] [address] Dr. Yue Vega MANUAL DIFF REQ NO Normal [facility] Comment on above: Performed By: #### CBC #### [facility] [address] [place] [address] Dr. Yue Vega MCH (RBC) [Entitic mass] 30.5 pg Normal 25.9-34.0 [facility] Comment on above: Performed By: #### CBC #### [facility] [address] [place] [address] Dr. Yue Vega MCHC (RBC) [Mass/Vol] 33.1 g/dL Normal 29.9-35.2 [facility] Comment on above: Performed By: #### CBC #### [facility] [address] [place] [address] Dr. Yue Vega MCV (RBC) [Entitic vol] 92.3 fL Normal 80.0-94.0 [facility] Comment on above: Performed By: #### CBC #### [facility] [address] [place] [address] Dr. Yue Vega MONO # 0.9 103/ul Critically high 0.3-0.8 [facility] Comment on above: Performed By: #### CBC #### [facility] [address] [place] [address] Dr. Yue Vega Monocytes/100 WBC (Bld) 9.5 % Normal 1.7-12.0 [facility] Comment on above: Performed By: #### CBC #### [facility] [address] [place] [address] Dr. Yue Vega NEUT # 6.4 103/ul Normal 1.4-6.5 [facility] Comment on above: Performed By: #### CBC #### [facility] [address] [place] [address] Dr. Yue Vega Neutrophils/100 WBC (Bld) 67.8 % Normal 43.0-75.0 [facility] Comment on above: Performed By: #### CBC #### [facility] [address] [address] [address] Yue Vega Platelet mean volume (Bld) [Entitic vol] 9.4 fL Critically low 9.5-13.5 [facility] Comment on above: Performed By: #### CBC #### [facility] [address] [address] [address] Yue Vega PLT 264 103/ul Normal 150-450 [facility] Comment on above: Performed By: #### CBC #### [facility] [address] [address] [address] Yue Vega RBC 4.55 106/ul Critically low 4.70-6.[address] [facility] Comment on above: Performed By: #### CBC #### [facility] [address] [address] [address] Yue Vega WBC 9.4 103/ul Normal 4.0-11.0 [facility] Comment on above: Performed By: #### CBC #### [facility] [address] [address] [address] Yue Vega GLYCOHEMOGLOBIN A1Con 2021 ADA RECOMMENDATION SEE BELOW Normal [facility] Comment on above: Result Comment: ADA RECOMMENDED LIMIT 4. 0 - 6.0 ADA THERAPEUTIC TARGET < 7.0 ACTION SUGGESTED > 7.0 Performed By: #### A 1C #### [facility] [address] [place] [address] Dr. Yue Vega Glucose [Mass/Vol] 169 mg/dL Normal [facility] Comment on above: Performed By: #### A1C #### [facility] [address] [address] [address] Yue Vega HbA1c (Bld) [Mass fraction] 7.5 % Critically high 4.5-6.2 [facility] Comment on above: Performed By: #### A1C #### [facility] [address] [place] [address] Dr. Yue Vega LIPID PROFILEon 09-26-2022 CHOL-HDL RATIO NORM SEE BELOW Normal [facility] Comment on above: Result Comment: 3.3 - 4.4 LOW RISK 4.4 - 7.1 AVERAGE RISK 7.1 - 11.0 MODERATE RISK >11.0 HIGH RISK Performed By: #### T SH #### [facility] [address] [address] [address] Yue Vega Cholesterol [Mass/Vol] 134 mg/dL Normal <=200 [facility] Comment on above: Performed By: #### TSH #### [facility] [address] [address] [address] Yue Vega Cholesterol in HDL [Mass/Vol] 51 mg/dL Normal 40-60 [facility] Comment on above: Performed By: #### TSH #### [facility] [address] [address] [address] Yue Vega Cholesterol in LDL [Mass/Vol] 63.4 mg/dL Normal [facility] Comment on above: Performed By: #### TSH #### [facility] [address] [address] [address] Yue Vega Cholesterol.tota l/Cholesterol in HDL [Mass ratio] 2.6 {ratio} Normal [facility] Comment on above: Performed By: #### TSH #### [facility] [address] [address] [address] Yue Vega HDL NORMAL > or = 60 mg/dl - LO W CARDIOVASCULAR RISK <40 mg/dl - HIGH CARDIOVASCULAR RISK Normal [facility] Comment on above: Performed By: #### TSH #### [facility] [address] [address] [address] Yue Vega LDL CALC NORMAL SEE BELOW Normal [facility] Comment on above: Result Comment: <100 mg/dl OPTIMAL 100 - 129 mg/dl NEAR OR ABOVE OPTIMAL 130 - 159 mg/dl BORDERLINE HIGH 160 - 189 mg/dl HIGH >190 mg/dl VERY HIGH Performed By: #### T SH #### [facility] [address] [place] [address] Dr. Yue Vega Triglyceride [Mass/Vol] 98 mg/dL Normal <=150 [facility] Comment on above: Performed By: #### TSH #### [facility] [address] [address] [address] Yue Vega VLDL CALC 19.6 mg/dL Normal [facility] Comment on above: Performed By: #### TSH #### [facility] [address] [address] [address] Yue Vega LIVER PROFILEon 09-26-2022 Albumin [Mass/Vol] 3.8 g/dL Normal 3.4-5.0 [facility] Comment on above: Performed By: #### LIPID, BMP, LIVER ### # [facility] [address] [address] [address] Yue Vega Albumin/Globulin [Mass ratio] 0.9 {ratio} Normal [facility] Comment on above: Performed By: #### LIPID, BMP, LIVER ### # [facility] [address] [place] [address] Dr. Yue Vega ALP [Catalytic activity/Vol] 94 U/L Normal 46-116 [facility] Comment on above: Performed By: #### LIPID, BMP, LIVER ### # [facility] [address] [place] [address] Dr. Yue Vega ALT [Catalytic activity/Vol] 34 U/L Normal 16-63 [facility] Comment on above: Performed By: #### LIPID, BMP, LIVER ### # [facility] [address] [place] [address] Dr. Yue Vega AST [Catalytic activity/Vol] 30 U/L Normal 15-37 [facility] Comment on above: Performed By: #### LIPID, BMP, LIVER ### # [facility] [address] [address] [address] Yue Vega BILI, CONJUGATED 0.2 mg/dL Normal 0.0-0.2 [facility] Comment on above: Performed By: #### LIPID, BMP, LIVER ### # [facility] [address] [address] [address] Yue Vega Bilirubin [Mass/Vol] 0.9 mg/dL Normal 0.2-1.0 [facility] Comment on above: Performed By: #### LIPID, BMP, LIVER ### # [facility] [address] [address] [address] Yue Vega Globulin (S) [Mass/Vol] 4.2 g/dL Normal [facility] Comment on above: Performed By: #### LIPID, BMP, LIVER ### # [facility] [address] [address] [address] Yue Vega Protein [Mass/Vol] 8.0 g/dL Normal 6.4-8.2 [facility] Comment on above: Performed By: #### LIPID, BMP, LIVER ### # [facility] [address] [place] [address] Dr. Yue Vega MICROALBUMIN, RAND URon 09-15 mALB 16.8 mg/L Normal <=30.0 [facility] Comment on above: Performed By: #### ERUR, UMICRO #### [facility] [address] [place] [address] Dr. Yue Vega PROF CHEM 8 (BAS METB)on Anion gap [Moles/Vol] 12.2 mmol/L Normal [facility] Comment on above: Performed By: #### TSH #### [facility] [address] [place] [address] Dr. Yue Vega Calcium [Mass/Vol] 9.4 mg/dL Normal 8.5-10.1 [facility] Comment on above: Performed By: #### TSH #### [facility] [address] [place] [address] Dr. Yue Vega Chloride [Moles/Vol] 99 mmol/L Normal 98-107 [facility] Comment on above: Performed By: #### TSH #### [facility] [address] [place] [address] Dr. Yue Vega CO2 [Moles/Vol] 32.1 mmol/L Critically high 21.0-32.0 [facility] Comment on above: Performed By: #### TSH #### [facility] [address] [place] [address] Dr. Yue Vega Creatinine [Mass/Vol] 1.19 mg/dL Normal 0.70-1.30 [facility] Comment on above: Performed By: #### TSH #### [facility] [address] [address] [address] Yue Veag EGFR-AF GUAMANIAN >60 Normal >=60 [facility] Comment on above: Performed By: #### TSH #### [facility] [address] [address] [address] Yue Vega EGFR-NON AF GUAMANIAN 58 mL/min/1.73m2 Critically low >=60 [facility] Comment on above: Performed By: #### TSH #### [facility] [address] [address] [address] Yue Vega Glucose [Mass/Vol] 158 mg/dL Critically high 74-106 [facility] Comment on above: Performed By: #### TSH #### [facility] [address] [address] [address] Yue Vega Potassium [Moles/Vol] 4.3 mmol/L Normal 3.5-5.1 [facility] Comment on above: Performed By: #### TSH #### [facility] [address] [address] [address] Yue Vega Sodium [Moles/Vol] 139 mmol/L Normal 136-145 [facility] Comment on above: Performed By: #### TSH #### [facility] [address] [address] [address] Yue Vega Urea nitrogen [Mass/Vol] 24.0 mg/dL Critically high 7.0-18.0 [facility] Comment on above: Performed By: #### TSH #### [facility] [address] [address] [address] Yue Vega Urea nitrogen/Creatin ine [Mass ratio] 20.2 mg/mg Normal [facility] Comment on above: Performed By: #### TSH #### [facility] [address] [address] [address] Yue Vega XR wrist LT min 3V*on 2021 XR wrist LT min 3V* [facility] [place] [address] XRay Report Signed Patient: Edwin Orourke MR#: [id number] : 1935 Acct:[id number] Age/Sex: 87 / M ADM Date: 09/05/22 [facility] Type: [facility] Attending Dr: Sanaz ALEX Copies to: SANAZ [...] Rene Jr., D.OMarli09/05/2022 5:57 PM Dictation Location: [place] [address] Transcribed By: [facility] 09/05/221756 Dictated By: Albert Rene Jr, DO 09/05/221756 Signed By: 09/05/221756 Normal [facility] XR wrist LT min 3V* [facility] [employer] Other XR wrist LT min 3V* [facility] Main [facility] [employer] Other XR wrist LT min 3V* [address] [place] [address] [employer] Other XR wrist LT min 3V* [place] [address] [facility] [employer] Other XR wrist LT min 3V* XRay Report [employer] Other XR wrist LT min 3V* Signed [employer] Other XR wrist LT min 3V* Patient: Edwni Orourke MR#: [id number] [place] [employer] Other XR wrist LT min 3V* [id number] [employer] Other XR wrist LT min 3V* : 1935 Acct:[id number] [employer] Other XR wrist LT min 3V* Age/Sex: 87 / M ADM Date: 09/05/22 [employer] Other XR wrist LT min 3V* Loc: XDUCLY Room: Type: REG CLI [employer] Other XR wrist LT min 3V* Attending Dr: Sanaz Campo [facility] [employer] Other XR wrist LT min 3V* Copies to: SANAZ CAMPO RISK INVESTIGATOR-C [employer] Other XR wrist LT min 3V* Ordering Provider: SANAZ CAMPO [facility] [employer] Other XR wrist LT min 3V* Date of Service: 09/05/22 [employer] Other XR wrist LT min 3V* XR/XR wrist LT min 3V*: Injury of left wrist, initial encounter [employer] Other XR wrist LT min 3V* LEFT WRIST - 4 views [employer] Other XR wrist LT min 3V* CLINICAL HISTORY: Fall this morning. Now with left wrist pain. [employer] Other XR wrist LT min 3V* COMPARISON: None [employer] Other XR wrist LT min 3V* FINDINGS: [employer] Other XR wrist LT min 3V* No focal soft tissue abnormality. Vascular calcifications. No acute bony process is seen. [employer] Other XR wrist LT min 3V* Degenerative changes involving the carpus, worst at the CMC joint of the thumb. [employer] Other XR wrist LT min 3V* XR/XR wrist LT min 3V* [employer] Other XR wrist LT min 3V* IMPRESSION: [employer] Other XR wrist LT min 3V* NO ACUTE BONY PROCESS. [facility] [employer] Other XR wrist LT min 3V* Impression dictated by: Albert Rene Jr., D.OMarli09/05/2022 5:57 PM [employer] Other XR wrist LT min 3V* Dictation Location: [place] [address] [employer] Other XR wrist LT min 3V* Transcribed By: PWS 09/05/22 [facility] [employer] Other XR wrist LT min 3V* Dictated By: Albert Rene Jr DO 09/05/22 [facility] [employer] Other XR wrist LT min 3V* Signed By: [employer] Other XR wrist LT min 3V* 09/05/22 [facility] [employer] Other GLYCOHEMOGLOBIN A1Con 2021 ADA RECOMMENDATION SEE BELOW Normal [facility] Comment on above: Result Comment: ADA RECOMMENDED LIMIT 4. 0 - 6.0 ADA THERAPEUTIC TARGET < 7.0 ACTION SUGGESTED > 7.0 Performed By: #### A 1C #### [facility] [address] [place] [address] Dr. Yue Vega Glucose [Mass/Vol] 154 mg/dL Normal [facility] Comment on above: Performed By: #### A1C #### [facility] [address] [address] [address] Yue Vega HbA1c (Bld) [Mass fraction] 7.0 % Critically high 4.5-6.2 [facility] Comment on above: Performed By: #### A1C #### [facility] [address] [address] [address] Yue Vega Cardiovascular Lab Reporton 05-30-2018 Cardiovascular Lab Report [facility] [place] [facility]: [id number] Physician: Devendra Hood M.D.Medicine Service Date: 05/29/2018Division of Birthdate: 1935Cardiology Room #: 3CD [id number] [place], [place] [address] Fax Cardiovascular Laboratory ReportINDICATION: Edwin Orourke is an 83-year-old man with history ofhypertension, hyperlipidemia, and diabetes. [facility] with typical unstable angina. He thenhad [...] signed informed consent. He was brought to catheter builder in a fasting state.The left wrist area was prepped and draped in usual fashion. Tiago's testwas favorable. Access in the left radial artery was obtained usingultrasound guidance and micropuncture technique. A 6-Kittitian x 11 cmHydrophilic sheath was left. Verapamil was given through the sheath andheparin was administered intravenously. Bilateral selective coronaryangiography was then performed using 6-Kittitian JL4 for engagement of theleft coronary artery and a 6-Kittitian JR4 followed by a 6-Kittitian ALIREZA catheterfor engagement of the right coronary artery. Catheters were removed.Therapeutic ACT confirmed during the procedure and additional heparin givenas needed. A 6-Kittitian XB 3.5 guiding catheter was advanced and [...] 11 atmospheres and post dilated using [employer] [place] 2.5 x 8 mm noncompliant balloon inflated [...] 11atmospheres and post dilated using [employer] [place] 2.5 x 15 mm noncompliantballoon inflated at 18 atmospheres throughout the length of the stent.Angiography was performed. Intracoronary nitroglycerin was administered.It was decided to deploy an additional stent distal to the previouslydeployed stent. This was a Synergy 2.25 x 12 mm stent, deployed at 11atmospheres and post dilated using [employer] [place] 2.5 x 15 mm noncompliantballoon inflated at [...] 05/29/2018/01:20 P/Devendra Flores M.D.Date Trans: 05/30/2018 11:47 A/johnathonoDN_[email or web address]:[id number]: Deep Velasquez D.O. [address] [facility] [address] [facility] [address] Ramon Martines M.D. [address] JimiReplaced by [facility] [address] Normal [facility] POC GLUCOSE LABon 05-30-2018 Glucose mass conc 121 mg/dL High 70-100 [facility] Comment on above: Performed By: #### [id number] ####[facility] POC GLUCOSE LABon 05-29-2018 Glucose mass conc 126 mg/dL High 70-100 [facility] Comment on above: Performed By: #### [id number] ####[facility] Glucose mass conc 127 mg/dL High 70-100 [facility] Comment on above: Performed By: #### [id number] ####[facility] Vital Signs Date Time Vital Sign Value Performing Clinician Facility 12-01-2023 09:23-0500 Blood Pressure Location Deven [facility] 12-01-2023 09:23-0500 Diastolic blood pressure 63 mm[Hg] Deven BUT[facility] 12-01-2023 09:23-0500 Heart rate 60 /min Deven [facility] 12-01-2023 09:23-0500 Respiratory rate 16 /min Deven BUT[facility] 12-01-2023 09:23-0500 Systolic blood pressure 111 mm[Hg] Deven [facility] 09-05-2022 17:40-0500 Body height 180.34 cm Sanaz Campo Other [employer] Other 09-05-2022 17:40-0500 Body mass index (BMI) [Ratio] 27.89 kg/m2 Sanaz Campo Other [employer] Other 09-05-2022 17:40-0500 Body temperature 97.6 [degF] Sanaz Campo Other [employer] Other 09-05-2022 17:40-0500 Body weight 90.72 kg Sanaz Campo Other [employer] Other 09-05-2022 17:40-0500 Diastolic blood pressure 63 mm[Hg] Sanaz Campo Other [employer] Other 09-05-2022 17:40-0500 Respiratory rate 16 /min Sanaz Campo Other [employer] Other 09-05-2022 17:40-0500 SaO2% (BldA) [Mass fraction] 97 % Sanaz Campo Other [employer] Other 09-05-2022 17:40-0500 Systolic blood pressure 153 mm[Hg] Sanaz Campo Other [facility] [employer] Other Encounters Encounter Date Encounter Type Care Provider Facility Start: 05-31-2024 ambulatory Deven Dan ty:[facility] Start: 04-02-2024 End: 04-02-2024 ambulatory [facility] Start: 01-30-2024 End: 01-30-2024 ambulatory Deven BUTLER Facility:[facility] Start: 01-30-2024 End: 01-30-2024 Patient encounter procedure Deven BUTLER [facility] Start: 12-28-2023 End: 12-28-2023 ambulatory [facility] Start: 12-26-2023 End: 12-26-2023 ambulatory [facility] Start: 12-01-2023 End: 12-01-2023 ambulatory Deven BUTLER Facility:[facility] Start: 12-01-2023 End: 12-01-2023 Patient encounter procedure Deven BUTL[facility] Start: 11-21-2023 End: 11-21-2023 ambulatory [facility] Start: 11-06-2023 End: 11-06-2023 ambulatory Deven BUTLER Facility:[facility] Start: 10-11-2023 End: 10-11-2023 ambulatory ЕЛЕНА LOU [facility] Start: 10-02-2023 ambulatory [facility] Start: 10-02-2023 End: 10-02-2023 ambulatory [facility] Start: 08-22-2023 End: 08-22-2023 ambulatory [facility] Start: 04-26-2023 End: 04-26-2023 [facility] [place] Start: 03-24-2023 End: 03-24-2023 ambulatory Ramon Martines Facility:[facility] Start: 02-16-2023 End: 02-17-[address] DOCTOR NAGEL Facility:[facility] Start: 01-06-2023 End: 01-06-2023 ambulatory Jose Eduardo Murray Facility:[facility] Start: 01-06-2023 End: 01-06-2023 ambulatory MD Ramon Martines Work Phone: [facility] Work Phone: Start: 01-06-2023 End: 01-06-2023 Patient encounter procedure MD Ramon Martines Work Phone: [facility] [place] Work Phone: Start: 12-26-2022 End: 12-26-2022 ambulatory GONZÁLEZ HADDAD . Facility:[facility] Start: 12-21-2022 End: 12-22-2022 ambulatory SUZI MURRAY Facility:[facility] Start: 12-06-2022 End: 12-31-[address] RAMON MARTINES Facility:[facility] Start: 09-26-2022 End: 09-27-[address] RAMON MARTINES Facility:[facility] Start: 09-05-2022 End: 09-05-2022 ambulatory Sanaz Campo Facility:[facility] Start: 09-05-2022 End: 09-05-2022 Patient encounter procedure RISK INVESTIGATOR-C Sanaz Campo Work Phone: [facility] Start: 09-05-2022 End: 09-05-2022 ambulatory RISK INVESTIGATOR-C Sanaz Campo Work Phone: [facility] Work Phone: Start: 09-05-2022 Office outpatient visit 15 minutes Sanaz Campo [facility] Start: 04-19-2022 End: 04-20-[address] RAMON MARTINES Facility:[facility] Start: 05-29-2018 End: 05-30-2018 Patient encounter PROVIDER UNKNOWN Facility:[facility] Start: 05-28-2018 End: 05-29-2018 Patient encounter DEFAULT PHYSICIAN Facility:[facility] Start: 05-20-2018 End: 05-21-2018 Patient encounter DEFAULT PHYSICIAN Facility:[facility] Procedures Date Procedure Procedure Detail Performing Clinician Start: 04-26-2023 Follow-up visit Follow-up JOAQUÍN SMITH Start: 01-06-2023 MRI of head MD Ramon chapman Work Phone: Start: 09-05-2022 Plain X-ray of left wrist RISK INVESTIGATOR-C Sanaz Campo Work Phone: Appendectomy Deven BUTLER Arthroplasty of knee Deven BUTLER Extraction of cataract Mayra BUTLER Implantation of radioactive seed into prostate Deven BUTELR Placement of stent i n cardiac conduit Deven BUTLER Plan of Treatment Date Care Activity Detail Author [facility] Payers Date Payer Category Payer Self-pay 1957 Medicare [id number] 1959 Unknown [id number] 1937 Unknown [id number] 2.16.84 [id number] 1937 Unknown [id number] 2.16.84 [id number] 1937 Unknown [id number] 2.16.84 [id number] 1937 Unknown [id number] 2.16.84 [id number] 1937 Unknown [id number] 2.16.84 [id number] 1937 Unknown [id number] 2.16.84 [id number] 1937 Unknown [id number] 2.16.8 [id number] 1937 Unknown [id number] 2.16.8 [id number] 1937 Unknown [id number] 2.16.8 [id number] 1937 Unknown [id number] 2.16.8 [id number] Medicare [id number] Unknown Unknown [id number] 2.16.8 [id number] Unknown [id number] 2.16.8 [id number] Unknown [id number] 2.16.8 [id number] Social History Date Type Detail Facility Tobacco smoking stat [facility] Unknown if ever smoked [facility] Work Phone: Start: 1935 Sex Assigned At Male F [facility] Sex Assigned At [facility] Start: 03-02-2020 Tobacco smoking status Never s moked tobacco (finding) [facility] Functional Status Date Assessment Result Facility 01-30-2024 Functional Status N/A [facility] 12-01-2023 Functional Status N/A [facility] Clinical Notes 09-05-2022 to 04-02-2024 Note Date & Type Note Facility 04-02-2024 Note [facility]rophys[facility] Note Reason for visit: bradycardia 04/02/24 Patient here for 3 mo follow up CAD, hypertension, and sinus bradycardia s/p PPM. He and his said Evoke called them today to tell them his home monitor is not working. He has home hospice coming to the home about every 2 weeks. He is doing well otherwise. Device check 12/28/23 12/26/23 Patient here for 3 mo follow up s/p PPM placement. C/o fatigue and weakness with very minimal exertion. Just getting dressed tires him out. Had routine labs for PCP last week. He underwenmt dual chamber PPM on 10/02/23 for SND. He feels tired but is limited jonathon ctivity as he used a motorized scooter for most work. Has home PT work on him once /wk. HPI: Edwin Orourke is a 89 y.o. 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 He was recommended EP consult by his neurology group as he was found to be bradycardic with a pulse of 40 to 50s per his . In December 2022 had his metoprolol discontinued due to having ER visit with [facility] for complaints of dizziness and was [...] ECG 05/04/2018: Atrial fibrillation, possible old septal OH. ECG 05/28/2018 showed sinus rhythm with 1st degree AV block and PAC. Possible anteroseptal OH. ECG today 03/21/2019: sinus rhythm with 1st [...] Connections: Not on file Intimate Partner Violence: Unknown (12/07/2023) [place] Safety & Environment Fear of Current or Ex-Partner: Not on file Emotionally Abused: Not on file Physically Abused: Not on file Sexually Abused: Not on file Physically or Sexually Abused: Not on file Depression: Not on file Housing Stability: Not on file Utilities: Not on file Allergies: No Known Allergies Weight: 81.6kg Visit Vitals BP 90/52 (BP Location: Right arm, Patient Position: Sitting) Pulse 78 Ht 1.778 m (5' 10 ) Wt 81.6 kg (180 lb) Comment: stated SpO2 94% BMI 25.83 kg/m??? Smoking Status Never BSA 2.01 m??? Meds: Current Outpatient Medications on File Prior to Visit Medication Sig Dispense Refill aspirin 81 mg EC tablet Take 1 tablet every day by oral route. citalopram (CeleXA) 20 mg tablet Take 10 mg by mouth three times daily. donepezil (Aricept) 10 mg tablet Take 10 mg by mouth at bedtime. gabapentin (Neurontin) 300 mg capsule Take 300 mg by mouth three times daily. hydrALAZINE (Apresoline) 25 mg tablet Take 25 [...] mg tablet Take 500 mg by mouth with breakfast and with evening meal. naproxen (Naprosyn) 500 mg tablet Take 500 mg by mouth 1 (one) time each day. omeprazole (PriLOSEC) [address] capsule Take 40 mg by mouth in the morning. oxybutynin XL (Ditropan-XL) 10 mg 24 hr tablet Take 10 mg by mouth in the morning. oxyCODONE (Roxicod (more content not included)... [facility] 01-30-2024 Evaluation + Plan note [place] from: Title:Urology Progress Note Author:Pramod BUTLER MD Date:01/30/24 Impression and Plan Impression: #1. This gentleman has urinary urge incontinence which is not totally controlled with 15 mg of oxybutynin ER. 2. He has a history of prostate cancer for which he had brachytherapy in the distant past. Plan: #1. We are unable to use Myrbetriq due to his labile blood pressure. We are going to attempt to increase his oxybutynin ER to 20 mg daily. We will reevaluate in 4 months. Extracted from: Title:EU Local Male Cystosco py w/ or w/o UD - FT Author:Deven BUTLER MD Date:01/30/24 Patient: EDWIN OROURKE Age: 89 years Sex: Male : 1935 Associated Diagnoses: None Author: Deven BUTLER MD Procedure Operative Information Details: Date/ Time: 01/30/2024 11:26:00. Pre-Op Dx: Urgency Incontinence - N39.41, Hx of Prostate CA - Z85.46, Incomplete Bladder Emptying - R39.14. Post-Op Dx: Same. Anesthesia Type: Local. Procedure: Local Cystoscopy. Complications: None. Risks/Benefits/Informed Consent: Surgical risks, benefits, details of the procedure have been explained to the patient, Full informed consent has been obtained. Intraoperative Information Prepped: Patient is brought back to the endoscopy suite, Patient is placed in supine position, Patient prepped in the usual fashion with Betadine solution, 2% Xylocaine Jelly is placed per Urethra, After waiting several minutes the Cystoscope is introduced. The Urethra is: Normal. The Prostatic Urethra is: Moderate Hypertrophy. The Bladder is: Abnormal, Trabeculated (Severe (3), Diffuse open diverticuli. No bladder tumors.). The ureteral orifices: Show efflux of clear urine. Devices Implanted: None. Removal: Cystoscope is removed, The patient tolerated it well. Postoperative Information Discharge: Patient is discharged home with antibiotic coverage, Follow up arranged. He will continue his 15 mg of oxybutynin ER. We will attempt to add Myrbetriq 25 mg daily. Follow-up will be in 4 months for reevaluation.. Addendum by Mayra BUTLER MD on January 30, 2024 11:30 EDT Due to his somewhat labile blood pressur e, we will not start Myrbetriq. We will attempt to raise his dose of oxybutynin ER to 20 mg daily. Future Appointments Appointment Date:05/31/2024 11:00:00 AM Scheduled Provider:Deven BUTLER MD Location:[facility] Appointment Type:URO Office Visit [facility]04-16-2024 Hospital Discharge instructions Patient Education 01/30/2024 11:24:21 EU - Cystoscopy Discharge Instructions (CUSTOM) Cystoscopy Voiding after the procedure: there may be some pain, burning, urgency, frequency and blood tinged urine following the procedure. These symptoms usually resolve within 2-5 days. Drink the amount of fluid it takes to keep the urine pink to yellow or clear in color. Drinking enough water and fluids will help to ease any discomfort after your procedure. If you are having problems that seem out of the ordinary, please call. If unable to contact your physician and you feel it is an emergency, go to the nearest emergency room or call 911 Diet you may resume your normal diet. Activity you may resume your normal activities Call if you have a fever over 100 degrees. Follow Up Care 01/04/2024 13:38:25 With:Deven BUTLER Address: [address] [place], [place] [address] Business (1) When:05/31/2024 11:24:06 [facility]04-16-2024 Note [id number] NoteCustom Cystoscopy ? Voiding after the procedure: there may be some pain, burning, urgency, frequency and blood tingedurine following the procedure. These symptoms usually resolve within 2-5 days. Drink the amount of fluid it takes to keep the urine pink to yellow or clear in color. Drinking enough water and fluids will help to ease any discomfort after your procedure. ? If you are having problems that seem out of the ordinary, please call. ? If unable to contact your physician and you feel it is an emergency, go to the nearest emergency room or call 911 ? Diet ? you may resume your normal diet. ? Activity ? you may resume your normal activities ? Call if you have a fever over 100 degrees.[facility] 12-26-2023 NoteUT Electrophysiology Note Reason for visit: bradycardia 12/26/23 Patient here for 3 mo follow up s/p PPM placement. C/o fatigue and weakness with very minimal exertion. Just getting dressed tires him out. Had routine labs for PCP last week. He underwenmt dual chamber PPM on 10/02/23 for SND. He feels tired but is limited jonathon ctivity as he used a motorized scooter for most work. Has home PT work on him once /wk. HPI: Edwin Orourke is a 88 y.o. [...] discontinued due to having ER visit with [facility] for complaints of dizziness and was [...] ECG 05/04/2018: Atrial fibrillation, possible old septal OH. ECG 05/28/2018 showed sinus rhythm with 1st degree AV block and PAC. Possible anteroseptal OH. ECG today 03/21/2019: sinus rhythm with 1st [...] Connections: Not on file Intimate Partner Violence: Unknown (12/07/2023) [place] Safety & [place] Fear of Current or Ex-Partner: Not on file Emotionally Abused: Not on file Physically Abused: Not on file Sexually Abused: Not on file Physically or Sexually Abused: Not on file Depression: Not on file Housing Stability: Not on file Utilities: Not on file Allergies: No Known Allergies Weight: No weight available Visit Vitals BP 98/52 (BP Location: Right arm, Patient Position: Sitting) Pulse 61 Ht 1.778 m (5' 10 ) SpO2 96% BMI 28.24 kg/m??? Smoking Status Never BSA 2.1 m??? Meds: Current Outpatient Medications on File Prior to Visit Medication Sig Dispense Refill aspirin 81 mg EC tablet Take 1 tablet every day by oral route. citalopram (CeleXA) 20 mg tablet Take 20 mg by mouth in the morning. donepezil (Aricept) 10 mg tablet Take 10 mg by mouth at bedtime. gabapentin (Neurontin) 300 mg capsule Take 300 mg by mouth in the morning and at bedtime. hydrALAZINE (Apresoline) 25 mg tablet [...] mg tablet Take 500 mg by mouth with breakfast and with evening meal. naproxen (Naprosyn) 500 mg tablet Take 500 mg by mouth 1 (one) time each day. omeprazole (PriLOSEC) [address] capsule Take 40 mg by mouth in the morning. oxybutynin XL (Ditropan-XL) 10 mg 24 hr tablet Take 10 mg by mouth in the morning. tamsulosin (Flomax) 0.4 mg 24 hr capsule Take 0.8 mg by mouth in the morning. [DISCONTINUED] acetaminophen (Tylenol) 500 mg tablet Take 500 mg by mouth in the morning, at noon, and at bedtime. Take 2 3 times day No current facility-administered medications on file prior to visit. ROS: Review of Systems Constitutional: Pos (more content not included)...[facility]02-16-2024 Hospital Discharge instructions Patient Education 12/01/2023 09:58:03 Urinary Incontinence Urinary Incontinence Urinary incontinence refers to a condition in which a person is unable to control where and when topass urine. A person with this condition will urinate involuntarily. This means that the person urinates when he or she does not mean to. What are the causes? This condition may be caused by: Medicines. Infections. Constipation. Overactive bladder muscles. Weak bladder muscles. Weak pelvic floor muscles. These muscles provide support for the bladder, intestine, and, in women,the uterus. Enlarged prostate in men. The prostate [...] a small amount, or constantly dribbling urine (overflowincontinence). Urinating because you cannot get to the [...] fiber include beans, whole grains, and fresh fruitsand vegetables. Behavioral changes, such as: ?Pelvic floor [...] nerve stimulation). ?For women, using a medical center representative to prevent urine leaks. This is a small, tampon-like, disposabledevice that is inserted into the urethra. ?Injecting [...] right after experiencing incontinence. General instructions Take smzx-ldh-chqwsdn and prescription medicines only as told by [...] important. Where to find more information National [place] of Diabetes and Digestive and Kidney Diseases: www.niddk.nih.gov [employer]: www.urologyhealth.org Contact a health care [...] is unable to control where and when topass urine. This condition may be caused by medicines, infection, weak bladder muscles, weak pelvic floor muscles, enlargement of the prostate (in men), or surgery. Factors such as older age, obesity, and childbirth, menopause, neurological diseases, andchronic coughing may increase your risk for developing [...] provider. Document Revised: 05/07/2021 Document Reviewed: 05/07/2021 [employer] Patient Education 2022 [employer]. Follow Up Care 08/25/2023 10:52:16 With:MÓNICA STEPHENSON, Deven Zimmerman, URL Address: [address] [place], [place] [id number]- When: Unknown [facility] 12-27-2023 NoteStable s/p [facility]2023 NoteStable s/p Dual chamber [facility]PMUnNorwalk [facility] Hospital12-27-2023 NotePt presents for 1 week wound check s/p recent [employer] dual PPM implant for SSS/ bradycardia Incision site well approximated, healing well without s/s of infectionUnNorwalk Memorial Hospital12-27-2023 NoteUTP CARDIOLOGY PROGRESS NOTE HPI: Edwin Orourke is a 88 [...] PROCEDURE: 10/02/23 PERFORMING PHYSICIAN: Dr. Mike Hilario RELATIONSHIP ASSOCIATE: Dr Lana Powell CONSENT: Patient LOCATION: EP Lab PROCEDURE PERFORMED: 1. Implantation of pacemaker ([employer]) 2. Ultrasound guided venous access INDICATIONS: 1. Sinus node dysfunction. 2. Bradycardia No echocardiogram results found for the past 12 months Assessment/Plan: Cardiac pacemaker in situ Pt presents for 1 week wound check s/p recent [employer] dual PPM implant for SSS/ bradycardia Incision site well approximated, healing well without s/s of infection Sinus node dysfunction (CMS/HCC) Stable s/p Dual chamber PPM Sinus bradycardia Stable s/p Dual chamber PPM RTC 1 month with device repUnNorwalk Memorial Hospital12-18-2023 Note DUAL CHAMBER PACEMAKER IMPLANT PROCEDURE NOTE DATE OF PROCEDURE: 10/02/23 PERFORMING PHYSICIAN: Dr. Mike Hilario RELATIONSHIP ASSOCIATE: Dr Lana Powell CONSENT: Patient LOCATION: EP Lab PROCEDURE PERFORMED: 1. Implantation of pacemaker ([employer]) 2. Ultrasound guided venous access INDICATIONS: [...] discontinued due to having ER visit with [facility] for complaints of dizziness and was [...] using modified seldinger technique using a 5 Kittitian micro-puncture needle on two occasions and 0.35 [...] for the device above the muscle. 6 Kittitian Safesheaths were placed over the wire. An active fixation [employer] pacing lead was then delivered through the 6Fsheath to the right ventricle. After confirmation of lead position on orthogonal views (GRAVES and WELSH) to confirm septal position, the screw was activated, and the lead was placed in the right ventricular mid cavity towards the septum. After confirmation of good sensing parameters, injury pattern and pacing thresholds, 10V pacing was done and no diaphragmatic stimulation was noted. It was then secured in the pocket using three 1-0 Silk sutures. Then an active fixation [employer] lead was delivered through the 6Fsheath to the right atrial appendage. After confirmation of lead position on orthogonal views (GRAVES and WELSH), the screw was activated. Good sensing parameters, [...] 5. No driving for (more content not included)...[facility]12-18-2023 NotePatient: Edwin Elsie Haven Procedure Information Date/Time: 10/02/23 1230 Procedure: Pacemaker DC new Location: [facility] DIALER 1 / [facility] (Cath) Providers: Mike Hilario MD Clinical information reviewed: Allergies Meds Physical Exam Airway Mallampati: II TM distance: >3 FB Neck ROM: full Cardiovascular Dental Pulmonary Abdominal Anesthesia Plan ASA 2 CSE Anesthetic plan and risks discussed with patient. Use of blood products discussed with patient who. Additional Equipment RequestsUnNorwalk Memorial Hospital11-07-2023 Note [place] Electrophysiology Note Reason for visit: bradycardia Date of Telehealth Visit: 08/22/23 The patient was notified that using 3rd alliance party telecommunication application (e.g., [employer]) is not HIPPA compliant and may carry some privacy risks. Yes The visit was conducted [id number] with the use of audio and video technology between patient and provider for a virtual [...] discontinued due to having ER visit with [facility] for complaints of dizziness and was [...] ECG 05/04/2018: Atrial fibrillation, possible old septal OH. ECG 05/28/2018 showed sinus rhythm with 1st degree AV block and PAC. Possible anteroseptal OH. ECG today 03/21/2019: sinus rhythm with 1st [...] ROS: Cardio Basic Cardiovascular (more content not included)...[facility] 04-26-2023 NotePatient is here today for a 2 month follow up Review of Systems Constitutional: Positive for malaise/fatigue. Cardiovascular: Positive for dyspnea on exertion. Musculoskeletal: Positive for arthritis, back pain and joint pain. Neurological: Positive for light-headedness (when bending over). All other systems reviewed and are negative.[facility] 04-26-2023 NoteUT Electrophysiology Note Reason for visit: follow up, [...] PACs. 05/04/2018: Atrial fibrillation, possible old septal OH. 05/28/2018 showed sinus rhythm with 1st degree AV block and PAC. Possible anteroseptal OH. 02/2023 HPI: Edwin Zimmerman Haven is a 88 y.o. year old Was referred to EP clinic for bradycardia. He was recommended followed by his neurology group as he was found to be bradycardic with a pulse of 40 to 50s per his . In December 2022 had his metoprolol discontinued due to having ER visit with [facility] for complaints of dizziness and was [...] mid chest pain, was admitted to the [facility] and discharged the following day. He then went back and had a stress test on 05/17/2018 that showed large anterior ischemia with EF 64%. ECG 05/04/2018: Atrial fibrillation, possible old septal OH. ECG 05/28/2018 showed sinus rhythm with 1st degree AV block and PAC. Possible anteroseptal OH. Update 06/25/2018: He is seen after his [...] the PCI. He has no claudication. JIM Sanchesald is seen in follow up on CAD s/p stenting of LAD and Diagonal in 05/2018, hypertension. Visit of 05/28/2018: Mr Orourke is referred for chest pain and positive stress test. He is a 83 yo man who about 3 weeks ago went to bed and felt crushing mid chest pain, was admitted to the [facility] and discharged the following day. He then went back and had a stress test on 05/17/2018 that showed large anterior ischemia with EF 64%. He says he never felt that before. Review of testing done during the [facility] admission showed mildl elevated of CK-MB, and elevated CK. His Tn showed a minimal rise but never reached cutoff for OH. CBC, BMP showed no anemia and normal renal function. He was also found to have AF , new onset not known before at the time of admission to [facility]. He was prescribed xarelto but was too expensive. He was given Brilinta 90 mg bid sample, and says that the medication will cost him a lot if he were to acquire it. I have reviewed the ECG done at [facility] and I think it showed SR. He has prior history of diabetes and hypertension on treatment. Since admission, he has been having angina with mild exertion. This is moderate in intensity. He has to stop activity for it to subside. ECG 05/04/2018: Atrial fibrillation, possible old septal OH. ECG 05/28/2018 showed sinus rhythm with 1st degree AV block and PAC. Possible anteroseptal OH. Update 06/25/2018: He is seen after his [...] he reports one ep (more content not included)...[facility]11-21-2022 Evaluation note* Encounter Date Diagnosis Assessment Notes Treatment Notes Treatment Clinical Notes Aug, Injury of left wrist, initial [...] for follow up on Monday [facility] Other Evaluation + Plan note No data available for this section [facility] evaluation noteNo assessment information available [facility] Work Phone: History general Narrative - Reported* Type Description Date Medical History diabetes mallitus Medical History high blood pressure Medical History high cholesterol Surgical History b/l knee 2000 [place] [place] Other Progress note No data available for this section [facility] Summary Purpose Family History No Family History Records FoundNo Family History Records FoundNo Family History Records Found No data available for this section No data available for this section No Family History Records FoundNo Family History [...] section and content) DATE CREATED AUTHOR 06/21/2018 [facility] DATE CREATED AUTHOR AUTHOR'S ORGANIZ ATION 02/23/2023 [facility] DATE CREATED AUTHOR AUTHOR'S ORGANIZ ATION 04/05/2023 [facility] DATE CREATED AUTHOR AUTHOR'S ORGANIZ ATION 04/04/2024 [facility] DATE CREATED AUTHOR AUTHOR'S ORGANIZ ATION 05/24/2024 [facility] Care Teams (unrecognized sec tion and [...] section No data available for this section No data available for this section [...] BE BASED ON THE PRIMARY CLINICAL RECORDS. [facility] [employer] provides no warranty or guarantee of the accuracy or completeness of information in this document.
[2024-05-24 16:02] VITALS: BP 111/60; PULSE 85; TEMP 36.6; O2SAT 95; BMI 26.5
--- NOTE | 2024-05-24 16:37 | ED_ITS ---
HPI HPI - General Adult General Chief complaint: Urogenital-Male Stated complaint: URINARY PROBLEMS Time Seen by Provider: 05/24/24 16:02 Source: patient Mode of arrival: Wheelchair History of Present Illness HPI narrative: Pleasant 89-year-old male presents here with chief complaint of possible urinary tract infection. Patient has indwelling Blank catheter due to urinary incontinence. Has had a history of prostate cancer with radiation and seeds placement. He does follow-up with urology has an appointment next Monday. states he recently had a UTI was concerned when he saw blood in urine this am. was concerned does not want to wait a week until he is seen by urology. Patient is afebrile nontoxic.blood in urine this am. Related Data Home Medications ?Medication ?Instructions ?Recorded ?Confirmed aspirin 81 mg tablet,delayed 81 mg PO DAILY 03/27/23 02/13/24 release donepezil 10 mg tablet (Aricept) 10 mg PO DAILY 03/27/23 02/13/24 isosorbide mononitrate 60 mg 60 mg PO DAILY 03/27/23 02/13/24 tablet,extended release 24 hr latanoprost 0.005 % eye drops 1 drp ophthalmic (eye) DAILY 03/27/23 02/13/24 lisinopril 20 1 tab PO DAILY 03/27/23 02/13/24 mg-hydrochlorothiazide 25 mg tablet lovastatin 40 mg tablet 40 mg PO DAILY 03/27/23 02/13/24 metformin 500 mg tablet 500 mg PO DAILY 03/27/23 02/13/24 omeprazole 40 mg capsule,delayed 40 mg PO DAILY 03/27/23 02/13/24 release tamsulosin 0.4 mg capsule 0.8 mg PO DAILY 03/27/23 02/13/24 vitamins A,C,U-krmr-hwdnju 4,296 2 cap PO DAILY 03/27/23 02/13/24 mcg-226 mg-90 mg capsule (PreserVision AREDS) acetaminophen 500 mg tablet 500 mg PO Q4H PRN pain 06/21/23 02/13/24 (Acetaminophen Extra Strength) zinc 50 mg tablet 50 mg PO DAILY 10/13/23 02/13/24 citalopram 10 mg tablet 10 mg PO QAM 10/17/23 02/13/24 hydralazine 50 mg tablet 50 mg PO TID 10/17/23 02/13/24 oxybutynin chloride 15 mg 15 mg PO QDAY 10/17/23 02/13/24 tablet,extended release 24 hr docusate sodium 100 mg capsule mg PO 11/21/23 fluticasone propionate 50 2 spray intranasal DAILY PRN 11/21/23 02/13/24 mcg/actuation nasal allergy symptoms spray,suspension (Allergy Relief (fluticasone)) insulin lispro 100 unit/mL 1 sliding scale dose subcut 11/21/23 02/13/24 subcutaneous pen (Humalog KwikPen USEASDIRECTD (U-100) Insulin) loratadine 10 mg tablet (Claritin) 10 mg PO DAILY 11/21/23 02/13/24 polyethylene glycol 3350 17 17 g PO DAILY 11/21/23 02/13/24 gram/dose oral powder (GentleLax) gabapentin 300 mg capsule 300 mg PO TID 01/25/24 02/13/24 Previous Rx's ?Medication ?Instructions ?Recorded sodium chloride 1,000 mg soluble 1,000 mg PO TID #0 tabs 10/17/23 tablet cephalexin 500 mg capsule 500 mg PO BID 10 days #20 caps 05/24/24 Allergies Allergy/AdvReac Type Severity Reaction Status Date / Time No Known Drug Allergies Allergy Verified 02/13/24 09:38 Opioid HPI Opioid Management Most Recent Opioid Data: Last Pain Scale 8 02/13/24 09:44 Review of Systems ROS Narrative All Systems are negative except as noted/marked.All systems reviewed and otherwise negative [facility] Medical History (Updated 05/24/24 @ 17:06 by Asha Gilbert) Senile dementia ?F03.90 - Unspecified dementia, unspecified severity, without behavioral disturbance, psychotic disturbance, mood disturbance, and anxiety (ICD-10) CAD (coronary artery disease), [place] coronary artery ?I25.10 - Atherosclerotic heart disease of [place] coronary artery without angina pectoris (ICD-10) Chronic heart failure with preserved ejection fraction (HFpEF) ?I50.32 - Chronic diastolic (congestive) heart failure (ICD-10) Benign essential hypertension ?I10 - Essential (primary) hypertension (ICD-10) Paroxysmal atrial fibrillation ?I48.0 - Paroxysmal atrial fibrillation (ICD-10) Type 2 diabetes mellitus with hyperglycemia ?E11.65 - Type 2 diabetes mellitus with hyperglycemia (ICD-10) Acute hyponatremia ?E87.1 - Hypo-osmolality and hyponatremia (ICD-10) Lumbar stenosis with neurogenic claudication ?M48.062 - Spinal stenosis, lumbar region with neurogenic claudication (ICD- 10) Kidney stone on right side ?N20.0 - Calculus of kidney (ICD-10) Degenerative disc disease Skin cancer ?C44.90 - Unspecified malignant neoplasm of skin, unspecified (ICD-10) Prostate cancer ?C61 - Malignant neoplasm of prostate (ICD-10) Postsurgical cardiac pacemaker in situ ?Z95.0 - Presence of cardiac pacemaker (ICD-10) Surgical History History of cholecystectomy ?Z90.49 - Acquired absence of other specified parts of digestive tract (ICD- 10) History of cataract surgery ?Z98.49 - Cataract extraction status, unspecified eye (ICD-10) History of bilateral knee replacement ?Z96.653 - Presence of artificial knee joint, bilateral (ICD-10) Family History Brother Family history of myocardial infarction Family history of hypertension Family history of diabetes mellitus Mother Family history of hypertension Family history of diabetes mellitus Sister Family history of diabetes mellitus Social History Within the past year, how often did you have a drink containing alcohol: never Score interpretation: A score less than 4 is consistent with normal alcohol consumption. Smoking status: Never smoker Non-prescribed substance use: denies use Previous occupational history: [employer] Known occupational exposures/hazards: No Highest level of school completed/degree received: high school graduate Are you now , , , , never or living with a partner: In a typical week, how many times do you talk on the telephone with family, friends, or neighbors: 3 or more times per week How often do you get together with friends or relatives: 3 or more times per week How often do you attend caodaism or episcopal services: 4 or more times per year Do you belong to any clubs or organizations such as caodaism groups unions, fraternal or athletic groups, or school groups: no Total score: 3 Score interpretation: A score of greater than or equal to 2 indicates the lowest level of social isolation. Feel stressed/tense/nervous/anxious/difficulty sleeping: not at all Do you think of yourself as: straight/heterosexual Gender Identity: male Exam Narrative Exam Narrative: Nurses note and vital signs reviewed and patient is not hypoxic. General: The patient appears well and in no apparent distress. Patient is resting comfortably on cart. Skin: Warm, dry, no pallor noted. There is no rash noted. Head: Normocephalic, atraumatic Cardiovascular: Regular Rate and Rhythm Respiratory: Patient is in no distress, no accessory muscle use, lungs are clear to auscultation, no wheezing, rales or rhonchi Back: non-tender, no CVA tenderness bilaterally to percussion. GI: Normal bowel sounds, no tenderness to palpation, no masses appreciated. No rebound, guarding, or rigidity noted. gu: indwelling catheter Musculoskeletal: The patient has no evidence of calf tenderness, no pitting edema, symmetrical pulses noted bilaterally Neurological: A&O x4, normal speech Psychiatric: Cooperative Constitutional Vital Signs, click to edit/add: Last Vital Signs Temp 98 F 05/24/24 16:02 Pulse 85 05/24/24 16:02 Resp 16 05/24/24 16:02 BP 111/60 05/24/24 16:02 Pulse Ox 95 05/24/24 16:02 O2 Del Method Room Air 05/24/24 16:02 Course Vital Signs Vital signs: Vital Signs Temperature 98 F 05/24/24 16:02 Pulse Rate 85 05/24/24 16:02 Respiratory Rate 16 05/24/24 16:02 Blood Pressure 111/60 05/24/24 16:02 Pulse Oximetry 95 05/24/24 16:02 Oxygen Delivery Method Room Air 05/24/24 16:02 Temperature 98 F 05/24/24 16:02 Pulse Rate 85 05/24/24 16:02 Respiratory Rate 16 05/24/24 16:02 Blood Pressure 111/60 05/24/24 16:02 Pulse Oximetry 95 05/24/24 16:02 Oxygen Delivery Method Room Air 05/24/24 16:02 Medical Decision Making [facility] Narrative Medical decision making narrative: Pleasant 89-year-old male presents here with chief complaint of possible urinary tract infection. Patient has indwelling Blank catheter due to urinary incontinence. Has had a history of prostate cancer with radiation and seeds placement. He does follow-up with urology has an appointment next Monday. states he recently had a UTI was concerned when he saw blood in urine this am. was concerned does not want to wait a week until he is seen by urology. Patient is afebrile nontoxic.blood in urine this am. Concern for UTI. Urinalysis is back and does show nitrite greater than 100 WBCs mono bacteria. Patient had finished a course of cipro We will start him on Keflex. He has she on May. Results were discussed with and patient at bedside no questions. Patient felt comfortable going home. Differential Diagnosis Differential Diagnosis: urininary retention, uti Medical Records Medical records reviewed: Yes I reviewed the patient's medical records Lab Data Lab results reviewed: Yes I reviewed the patient's lab results Labs: Lab Results 05/24/24 Range/Units 16:14 Urine Color Yellow (YELLOW) Urine Clarity Cloudy A (CLEAR) Urine pH 7.5 (5.0-9.0) Ur Specific [place] 1.010 (1.005-1.025) Urine Protein 100 A (NEG/TRACE) mg/dL Urine Glucose (UA) Negative (NEGATIVE) mg/dL Urine Ketones Negative (NEGATIVE) mg/dL Urine Occult Blood Large A (NEGATIVE) Urine Nitrite Positive A (NEGATIVE) Urine Bilirubin Negative (NEGATIVE) Urine Urobilinogen 0.2 (0.2-1.0) EU/dL Ur Leukocyte Esterase Large A (NEGATIVE) Urine RBC 5-10 A (0-2) #/HPF Urine WBC >100 A (NONE SEEN) #/HPF Ur Squamous Epith Cells Few A (NONE/RARE) #/LPF Urine Crystals None seen (None Seen) #/HPF Urine Bacteria Large A (NONE SEEN) #/HPF Urine Casts None seen (NONE SEEN) #/LPF Urine Mucus Trace A (NONE SEEN) Urine Yeast Seen A (NONE SEEN) Ur Culture Indicated? Yes Discharge Plan Discharge Stand Alone Forms: Portal Instructions Chief Complaint: Urogenital-Male Clinical Impression: Urinary tract infection Patient Disposition: Home, Self-Care Time of Disposition Decision: 17:06 Condition: Good Prescriptions / Home Meds: New cephalexin 500 mg capsule 500 mg PO BID 10 Days Qty: 20 0RF No Action donepezil [Aricept] 10 mg tablet 10 mg PO DAILY Rx Instructions: at bedtime per refill hx from 09/11/23 isosorbide mononitrate 60 mg tablet extended release 24 hr 60 mg PO DAILY lisinopril-hydrochlorothiazide 20-25 mg tablet 1 tab PO DAILY lovastatin 40 mg tablet 40 mg PO DAILY metformin 500 mg tablet 500 mg PO DAILY tamsulosin 0.4 mg capsule 0.8 mg PO DAILY aspirin 81 mg tablet,delayed release (DR/EC) 81 mg PO DAILY PreserVision AREDS 4,296 mcg-226 mg-90 mg capsule 2 cap PO DAILY latanoprost 0.005 % drops 1 drp ophthalmic (eye) DAILY omeprazole 40 mg capsule,delayed release(DR/EC) 40 mg PO DAILY acetaminophen [Acetaminophen Extra Strength] 500 mg tablet 500 mg PO Q4H PRN (Reason: pain) insulin lispro [Humalog KwikPen Insulin] 100 unit/mL insulin pen 1 sliding scale dose subcut USEASDIRECTD docusate sodium 100 mg capsule PO polyethylene glycol 3350 [GentleLax] 17 gram/dose powder 17 g PO DAILY fluticasone propionate [Allergy Relief (fluticasone)] 50 mcg/actuation spray,suspension 2 spray intranasal DAILY PRN (Reason: allergy symptoms) Rx Instructions: administer into each nostril loratadine [Claritin] 10 mg tablet 10 mg PO DAILY zinc 50 mg tablet 50 mg PO DAILY citalopram 10 mg tablet 10 mg PO QAM hydralazine 50 mg tablet 50 mg PO TID oxybutynin chloride 15 mg tablet extended release 24hr 15 mg PO QDAY Rx Instructions: last filled 09/14/23 per refill hx sodium chloride 1,000 mg Tablet,Soluble 1,000 mg PO TID Qty: 0 0RF gabapentin 300 mg capsule 300 mg PO TID Print Language: Sami Instructions: Urinary Tract Infection in Men (ED) Referrals: Ramon Ortiz MD [Primary Care Provider] - 1 week
[2024-05-24 17:02] LABS: Clarity Urine CLOUDY (CLEAR); Color Urine YELLOW (YELLOW); Protein Urine 100 mg/dL (NEG/TRACE); pH Urine 7.5 (5.0-9.0)
[2024-05-24 17:03] LABS: Bilirubin Urine NEGATIVE (NEGATIVE); Blood Urine LARGE (NEGATIVE); Glucose Urine UA NEGATIVE (NEGATIVE); Ketones Urine NEGATIVE (NEGATIVE); Leukocyte Esterase Urine LARGE (NEGATIVE); Nitrite Urine POSITIVE (NEGATIVE); Urobilinogen Urine 0.2 EU/dL (0.2-1.0); WBC Urine >100 #/HPF (NONE SEEN)
[2024-05-24 17:04] LABS: Bacteria Urine LARGE #/HPF (NONE SEEN); Cast Seen? NONE SEEN #/LPF (NONE SEEN); Crystals Seen? None Seen #/HPF (None Seen); Mucus Urine TRACE (NONE SEEN); Squamous Epithelial Cell Urine FEW #/LPF (NONE/RARE); Urine Culture Indicated YES
[2024-05-24] MEDS: CEPHALEXIN 500 MG CAPSULE PO (17:25)
== END 2024-05-24 17:36 | disposition home or self-care (01) ==
PROVIDERS: Physician Assistant; Emergency Provider Emergency Medicine; PCP Family Medicine
DX: N39.0 Urinary tract infection, site not specified (principal); Z96.0 Presence of urogenital implants; Z85.46 Personal history of malignant neoplasm of prostate
CPT/HCPCS: 81001; 87086; 99283

== ENCOUNTER 2024-06-04 14:38 | Outpatient (OUT) | payer OTHER, MEDICARE, SELFPAY ==
[2024-06-04 15:18] LABS: Estimated Average Glucose 123 mg/dL; Glycohemoglobin A1C 5.9 % (4.5-6.2)
[2024-06-04 15:19] LABS: Anion Gap 8.5; BUN Creatinine Ratio 13.8; Carbon Dioxide 33.6 mmol/L (21.0-32.0); Chloride 92 mmol/L (98-107); Estimated GFR (African America >60 (>=60); Estimated GFR (Non-African Ame 56 (>=60); Glucose 107 mg/dL (74-106); Potassium 4.1 mmol/L (3.5-5.1); Sodium 130 mmol/L (136-145)
== END 2024-06-04 14:39 | disposition home or self-care (01) ==
LOC: LAB 14:40
PROVIDERS: PCP Family Medicine; Visit Provider Family Medicine
DX: E11.65 Type 2 diabetes mellitus with hyperglycemia (principal); I10 Essential (primary) hypertension
CPT/HCPCS: 36415; 80048; 83036

== ENCOUNTER 2024-06-14 11:32 | Emergency (ER) | payer MEDICARE, OTHER, SELFPAY ==
[2024-06-14 11:37] VITALS: BP 133/81; PULSE 83; TEMP 36.7; O2SAT 96; BMI 28.7
--- NOTE | 2024-06-14 12:03 | PC.NURSE ---
pt c/o green drainage in brief this am. does not appear to have any at this time but tip of penis is irritated from rivera catheter placement 2 weeks ago. pt has chronic bed sore on sacrum and was checked there is no drainage coming from that either. denies pain in abd or penis. c/o only lower back pain and bed sore pain which is chronic. urine in rivera bag is clear yellow.
[2024-06-14 12:09] LABS: Basophils Absolute Auto 0.1 10^3/uL (0.0-0.1); Basophils Percent Auto 0.9 % (0.2-2.0); Eosinophils Absolute Auto 0.6 10^3/uL (0.0-0.7); Eosinophils Percent Auto 4.4 % (0.9-7.0); Hematocrit 31.4 % (42.0-54.0); Hemoglobin 10.3 g/dL (14.0-18.0); Immature Granulocytes Abs Auto 0.05 10^3/uL (0.00-0.03); Immature Granulocytes Pct Auto 0.4 % (0.0-0.5); Lymphocytes Absolute Auto 1.1 10^3/uL (1.2-3.8); Lymphocytes Percent Auto 8.4 % (20.5-60.0); Mean Corpuscular HGB Conc 32.8 g/dL (29.9-35.2); Mean Corpuscular Hemoglobin 28.1 pg (25.9-34.0); Mean Corpuscular Volume 85.6 fL (80.0-94.0); Mean Platelet Volume 8.8 fL (9.5-13.5); Monocytes Absolute Auto 0.9 10^3/uL (0.3-0.8); Monocytes Percent Auto 6.7 % (1.7-12.0); Neutrophils Absolute Auto 10.2 10^3/uL (1.4-6.5); Neutrophils Percent Auto 79.2 % (43.0-75.0); Platelet Count 378 10^3/uL (150-450); Red Blood Count 3.67 10^6/uL (4.70-6.10); Red Cell Distribution Width 14.7 % (11.0-15.0); White Blood Count 12.9 10^3/uL (4.0-11.0)
[2024-06-14 12:26] LABS: Alanine Aminotransferase 21 U/L (16-63); Albumin Level 3.5 g/dL (3.4-5.0); Alkaline Phosphatase 151 U/L (46-116); Anion Gap 12.1; Aspartate Amino Transferase 22 U/L (15-37); BUN Creatinine Ratio 14.5; Bilirubin Total 0.7 mg/dL (0.2-1.0); Calcium 9.5 mg/dL (8.5-10.1); Carbon Dioxide 31.3 mmol/L (21.0-32.0); Chloride 93 mmol/L (98-107); Estimated GFR (African America >60 (>=60); Estimated GFR (Non-African Ame >60 (>=60); Globulin 3.6 g/dL; Glucose 137 mg/dL (74-106); Potassium 4.4 mmol/L (3.5-5.1); Sodium 132 mmol/L (136-145); Total Protein 7.1 g/dL (6.4-8.2)
--- NOTE | 2024-06-14 13:09 | ED_ITS ---
HPI - Male Genitourinary General Chief complaint: Urogenital-Male Stated complaint: UTI COMPLAINTS Time Seen by Provider: 06/14/24 11:52 Source: patient and family Mode of arrival: Wheelchair Limitations: physical limitation History of Present Illness HPI Narrative: The patient is coming to the ER with a concern of irritation at his buttock area where he had a ulcer in addition to some drainage around the chronic Blank catheter opening, the patient denies any fever chills decreased p.o. intake No abdominal pain no nausea no vomiting and he regularly check with his urologist every 2 weeks to change the Blank catheter The patient denies any other complaint except for seeing some greenish drainage around the decubital ulcer that he have in the back Related Data Home Medications ?Medication ?Instructions ?Recorded ?Confirmed aspirin 81 mg tablet,delayed 81 mg PO DAILY 03/27/23 02/13/24 release donepezil 10 mg tablet (Aricept) 10 mg PO DAILY 03/27/23 02/13/24 isosorbide mononitrate 60 mg 60 mg PO DAILY 03/27/23 02/13/24 tablet,extended release 24 hr latanoprost 0.005 % eye drops 1 drp ophthalmic (eye) DAILY 03/27/23 02/13/24 lisinopril 20 1 tab PO DAILY 03/27/23 02/13/24 mg-hydrochlorothiazide 25 mg tablet lovastatin 40 mg tablet 40 mg PO DAILY 03/27/23 02/13/24 metformin 500 mg tablet 500 mg PO DAILY 03/27/23 02/13/24 omeprazole 40 mg capsule,delayed 40 mg PO DAILY 03/27/23 02/13/24 release tamsulosin 0.4 mg capsule 0.8 mg PO DAILY 03/27/23 02/13/24 vitamins A,C,F-[id number]-ddslvt 4,296 2 cap PO DAILY 03/27/23 02/13/24 mcg-226 mg-90 mg capsule (PreserVision AREDS) acetaminophen 500 mg tablet 500 mg PO Q4H PRN pain 06/21/23 02/13/24 (Acetaminophen Extra Strength) zinc 50 mg tablet 50 mg PO DAILY 10/13/23 02/13/24 citalopram 10 mg tablet 10 mg PO QAM 10/17/23 02/13/24 hydralazine 50 mg tablet 50 mg PO TID 10/17/23 02/13/24 oxybutynin chloride 15 mg 15 mg PO QDAY 10/17/23 02/13/24 tablet,extended release 24 hr docusate sodium 100 mg capsule mg PO 11/21/23 fluticasone propionate 50 2 spray intranasal DAILY PRN 11/21/23 02/13/24 mcg/actuation nasal allergy symptoms spray,suspension (Allergy Relief (fluticasone)) insulin lispro 100 unit/mL 1 sliding scale dose subcut 11/21/23 02/13/24 subcutaneous pen (Humalog KwikPen USEASDIRECTD (U-100) Insulin) loratadine 10 mg tablet (Claritin) 10 mg PO DAILY 11/21/23 02/13/24 polyethylene glycol 3350 17 17 g PO DAILY 11/21/23 02/13/24 gram/dose oral powder (GentleLax) gabapentin 300 mg capsule 300 mg PO TID 01/25/24 02/13/24 Previous Rx's ?Medication ?Instructions ?Recorded sodium chloride 1,000 mg soluble 1,000 mg PO TID #0 tabs 10/17/23 tablet cephalexin 500 mg capsule 500 mg PO BID 10 days #20 caps 05/24/24 bacitracin 500 unit/gram topical 1 applic topical Q12H #14 grams 06/14/24 ointment cephalexin 500 mg capsule 500 mg PO Q8H 7 days #21 caps 06/14/24 Allergies Allergy/AdvReac Type Severity Reaction Status Date / Time No Known Drug Allergies Allergy Verified 06/14/24 11:42 Review of Systems ROS Status of ROS 10 or more systems reviewed and unremark able except as noted in history and below [facility] Medical History (Updated 06/14/24 @ 12:50 by Patricia Bolanos MD) Senile dementia ?F03.90 - Unspecified dementia, unspecified severity, without behavioral disturbance, psychotic disturbance, mood disturbance, and anxiety (ICD-10) CAD (coronary artery disease), tribe coronary artery ?I25.10 - Atherosclerotic heart disease of tribe coronary artery without angina pectoris (ICD-10) Chronic heart failure with preserved ejection fraction (HFpEF) ?I50.32 - Chronic diastolic (congestive) heart failure (ICD-10) Benign essential hypertension ?I10 - Essential (primary) hypertension (ICD-10) Paroxysmal atrial fibrillation ?I48.0 - Paroxysmal atrial fibrillation (ICD-10) Type 2 diabetes mellitus with hyperglycemia ?E11.65 - Type 2 diabetes mellitus with hyperglycemia (ICD-10) Acute hyponatremia ?E87.1 - Hypo-osmolality and hyponatremia (ICD-10) Lumbar stenosis with neurogenic claudication ?M48.062 - Spinal stenosis, lumbar region with neurogenic claudication (ICD- 10) Kidney stone on right side ?N20.0 - Calculus of kidney (ICD-10) Degenerative disc disease Skin cancer ?C44.90 - Unspecified malignant neoplasm of skin, unspecified (ICD-10) Prostate cancer ?C61 - Malignant neoplasm of prostate (ICD-10) Postsurgical cardiac pacemaker in situ ?Z95.0 - Presence of cardiac pacemaker (ICD-10) Surgical History History of cholecystectomy ?Z90.49 - Acquired absence of other specified parts of digestive tract (ICD- 10) History of cataract surgery ?Z98.49 - Cataract extraction status, unspecified eye (ICD-10) History of bilateral knee replacement ?Z96.653 - Presence of artificial knee joint, bilateral (ICD-10) Family History Brother Family history of myocardial infarction Family history of hypertension Family history of diabetes mellitus Mother Family history of hypertension Family history of diabetes mellitus Sister Family history of diabetes mellitus Social History Within the past year, how often did you have a drink containing alcohol: never Score interpretation: A score less than 4 is consistent with normal alcohol consumption. Smoking status: Never smoker Non-prescribed substance use: denies use Previous occupational history: [employer] Known occupational exposures/hazards: No Highest level of school completed/degree received: high school graduate Are you now , , , , never or living with a partner: In a typical week, how many times do you talk on the telephone with family, f riends, or neighbors: 3 or more times per week How often do you get together with friends or relatives: 3 or more times per week How often do you attend baptist or spiritism services: 4 or more times per year Do you belong to any clubs or organizations such as baptist groups unions, fraternal or athletic groups, or school groups: no Total score: 3 Score interpretation: A score of greater than or equal to 2 indicates the lowest level of social isolation. Feel stressed/tense/nervous/anxious/difficulty sleeping: not at all Do you think of yourself as: straight/heterosexual Gender Identity: male Exam Narrative Exam Narrative: Nurses notes and vital signs reviewed and patient is not hypoxic. General: Well-appearing and in no apparent distress. Skin: Warm, dry, no pallor noted. No rash. Head: Normocephalic, atraumatic. Neck: Supple, non-tender. Eye: Pupils are equal, round and EOMI. No scleral icterus. Ears, Nose, Mouth, and Throat: TM are clear, no nasal mucosal hypertrophy. Oral mucosa is moist, no posterior oropharynx erythema, uvula is mid-line Cardiovascular: Regular Rate and Rhythm without murmur, gallop or rub. Respiratory: No accessory muscle use or respiratory distress. Lungs are clear to auscultation, no wheezing, rales or rhonchi Chest Wall: no tenderness Back: No midline thoracic or lumbar vertebral tenderness. No CVA tenderness Musculoskeletal: normal ROM, no calf or popliteal tenderness, no lower extremity edema/swelling GI: Abdomen is soft, non-distended. Normal bowel sounds. No masses appreciated. No tenderness to palpation. No rebound, guarding, or rigidity noted. On the buttock area the patient have a an area of ulcer almost 3 x 5 cm The ulcer is stage II and there is mild erythema no surrounding induration no fluctuation no bulging Perineal examination showed that the patient have mild irritation to the opening of the penis, where the Blank catheter is inserted and there is no redness no hotness no signs of induration or infection No tenderness upon palpation of the scrotum as well as no lesions Constitutional Vital Signs, click to edit/add: Last Vital Signs Temp 98.1 F 06/14/24 11:37 Pulse 83 06/14/24 11:37 Resp 18 06/14/24 11:37 BP 133/81 06/14/24 11:37 Pulse Ox 96 06/14/24 11:37 O2 Del Method Room Air 06/14/24 11:37 Course Vital Signs Vital signs: Vital Signs Temperature 98.1 F 06/14/24 11:37 Pulse Rate 83 06/14/24 11:37 Respiratory Rate 18 06/14/24 11:37 Blood Pressure 133/81 06/14/24 11:37 Pulse Oximetry 96 06/14/24 11:37 Oxygen Delivery Method Room Air 06/14/24 11:37 Temperature 98.1 F 06/14/24 11:37 Pulse Rate 83 06/14/24 11:37 Respiratory Rate 18 06/14/24 11:37 Blood Pressure 133/81 06/14/24 11:37 Pulse Oximetry 96 06/14/24 11:37 Oxygen Delivery Method Room Air 06/14/24 11:37 MDM - Male Genitourinary MDM Narrative Medical decision making narrative: The patient presented to us with a possible cellulitis with no alarming symptoms of systemic infection I saw the greenish discharge on the depends and the patient had CBC and chemistry showed mild leukocytosis around 12 No signs of systemic infection the right now the patient will be started on Keflex for cellulitis management as well as bacitracin for local care Patient will follow-up with the urologist for change of the Blank catheter Urine culture sent for evaluation at the patient have no urinary symptoms at the moment Patient was instructed as well as his that in case of any new symptoms including fever nausea vomiting or any other concern he is to come back to the ER The patient is to follow up with primary care physician in next 2-3 days or to return to the emergency department should any of the signs or symptoms worsen or new symptoms develop. The patient agrees with the following Diagnosis and Treatment plan and the patient will be discharged home. Lab Data Labs: Lab Results 06/14/24 Range/Units 11:59 WBC 12.9 H (4.0-11.0) 10^3/uL RBC 3.67 L (4.70-6.10) 10^6/uL Hgb 10.3 L (14.0-18.0) g/dL Hct 31.4 L (42.0-54.0) % MCV 85.6 (80.0-94.0) fL MCH 28.1 (25.9-34.0) pg MCHC 32.8 (29.9-35.2) g/dL RDW 14.7 (11.0-15.0) % Plt Count 378 (150-450) 10^3/uL MPV 8.8 L (9.5-13.5) fL Neut % (Auto) 79.2 H (43.0-75.0) % Lymph % (Auto) 8.4 L (20.5-60.0) % Ble[place] % (Auto) 6.7 (1.7-12.0) % Eos % (Auto) 4.4 (0.9-7.0) % Baso % (Auto) 0.9 (0.2-2.0) % Neut # (Auto) 10.2 H (1.4-6.5) 10^3/uL Lymph # (Auto) 1.1 L (1.2-3.8) 10^3/uL [place] # (Auto) 0.9 H (0.3-0.8) 10^3/uL Eos # (Auto) 0.6 (0.0-0.7) 10^3/uL Baso # (Auto) 0.1 (0.0-0.1) 10^3/uL Abs Immat Gran (auto) 0.05 H (0.00-0.03) 10^3/uL Imm/Tot Granulo (auto) 0.4 (0.0-0.5) % Sodium 132 L (136-145) mmol/L Potassium 4.4 (3.5-5.1) mmol/L Chloride 93 L (98-107) mmol/L Carbon Dioxide 31.3 (21.0-32.0) mmol/L Anion Gap 12.1 BUN 16.0 (7.0-18.0) mg/dL Creatinine 1.10 (0.70-1.30) mg/dL Est GFR ( Amer) >60 (>=60) Est GFR (Non-Af Amer) >60 (>=60) BUN/Creatinine Ratio 14.5 Glucose 137 H (74-106) mg/dL Calcium 9.5 (8.5-10.1) mg/dL Total Bilirubin 0.7 (0.2-1.0) mg/dL AST 22 (15-37) U/L ALT 21 (16-63) U/L Alkaline Phosphatase 151 H (46-116) U/L Total Protein 7.1 (6.4-8.2) g/dL Albumin 3.5 (3.4-5.0) g/dL Globulin 3.6 g/dL Albumin/Globulin Ratio 1.0 Discharge Plan Discharge Stand Alone Forms: Work/School Release, Portal Instructions Chief Complaint: Urogenital-Male Clinical Impression: Cellulitis, Blank catheter in place Patient Disposition: Home, Self-Care Time of Disposition Decision: 12:50 Condition: Good Prescriptions / Home Meds: New bacitracin 500 unit/gram ointment 1 applic topical Q12H Qty: 14 0RF cephalexin 500 mg capsule 500 mg PO Q8H 7 Days Qty: 21 0RF No Action donepezil [Aricept] 10 mg tablet 10 mg PO DAILY Rx Instructions: at bedtime per refill hx from 09/11/23 isosorbide mononitrate 60 mg tablet extended release 24 hr 60 mg PO DAILY lisinopril-hydrochlorothiazide 20-25 mg tablet 1 tab PO DAILY lovastatin 40 mg tablet 40 mg PO DAILY metformin 500 mg tablet 500 mg PO DAILY tamsulosin 0.4 mg capsule 0.8 mg PO DAILY aspirin 81 mg tablet,delayed release (DR/EC) 81 mg PO DAILY PreserVision AREDS 4,296 mcg-226 mg-90 mg capsule 2 cap PO DAILY latanoprost 0.005 % drops 1 drp ophthalmic (eye) DAILY omeprazole 40 mg capsule,delayed release(DR/EC) 40 mg PO DAILY acetaminophen [Acetaminophen Extra Strength] 500 mg tablet 500 mg PO Q4H PRN (Reason: pain) insulin lispro [Humalog KwikPen Insulin] 100 unit/mL insulin pen 1 sliding scale dose subcut USEASDIRECTD docusate sodium 100 mg capsule PO polyethylene glycol 3350 [GentleLax] 17 gram/dose powder 17 g PO DAILY fluticasone propionate [Allergy Relief (fluticasone)] 50 mcg/actuation spray,suspension 2 spray intranasal DAILY PRN (Reason: allergy symptoms) Rx Instructions: administer into each nostril loratadine [Claritin] 10 mg tablet 10 mg PO DAILY zinc 50 mg tablet 50 mg PO DAILY citalopram 10 mg tablet 10 mg PO QAM hydralazine 50 mg tablet 50 mg PO TID oxybutynin chloride 15 mg tablet extended release 24hr 15 mg PO QDAY Rx Instructions: last filled 09/14/23 per refill hx sodium chloride 1,000 mg Tablet,Soluble 1,000 mg PO TID Qty: 0 0RF gabapentin 300 mg capsule 300 mg PO TID cephalexin 500 mg capsule 500 mg PO BID 10 Days Qty: 20 0RF Print Language: Czech Instructions: Cellulitis (ED) Referrals: Ramon Ortiz MD [Primary Care Provider] - 1 week
== END 2024-06-14 13:05 | disposition home or self-care (01) ==
PROVIDERS: Emergency Provider Emergency Medicine; PCP Family Medicine
DX: L03.317 Cellulitis of buttock (principal); L89.302 Pressure ulcer of unspecified buttock, stage 2; Z96.0 Presence of urogenital implants; R82.998 Other abnormal findings in urine
CPT/HCPCS: 36415; 80053; 85025; 87086; 87150; 87186; 99283

== ENCOUNTER 2024-08-28 12:20 | Outpatient (OUT) | payer MEDICARE, OTHER, SELFPAY ==
--- OUTSIDE RECORDS SUMMARY | 2024-08-28 12:31 | XMS_ITS | CCD ---
Author Organization [facility] Providers Care Counter Molder Name Role Phone PHYSICIAN, DEFAULT Unavailable Unavailable PHYSICIAN, DEFAULT Unavailable Unavailable SNEHA, DARRIN Unavailable Unavailable PHYSICIAN, DEFAULT Unavailable Unavailable PHYSICIAN, DEFAULT Unavailable Unavailable SNEHA, DARRIN Unavailable Unavailable UNKNOWN, PROVIDER Unavailable Unavailable UNKNOWN, PROVIDER Unavailable Unavailable SNEHA, DARRIN Unavailable Unavailable RAMON MARTINES Unavailable Unavailable ISAI Campo Attending Provider [phone] Sanaz Campo Unavailable DO Jose Eduardo Murray Attending Provider MD Ramon Martines Primary Care Provider [phone] BOBBI, DR RAMON Chen Primary Care Unavailable [...] Chen Primary Care Unavailable NADERER, DR RAMON Cehn Attending Unavailable NADEREElsie, DR RAMON Chen Admitting [...] Care Unavailable Jose Eduardo Murray Admitting Unavailteodora e Bobbi, Ramon Admitting Unavailable Ramon Martines Primary Care Unavailable Bobbi, Ramon Attending Unavailable RAMON MARTINES Primary Care Physician [phone] MIKE HILARIO Attending Unavailable HARRY, MIKE Referring Unavailable HARRY, MIKE Attending Unavailable HARRY, MIKE Referring Unavailable HARRY, MIKE Referring Unavailable DASHAЕЛЕНА Attending Unavailable HARRY, MIKE Attending Unavailable HARRY, MIKE Referring Unavailable HARRY, MIKE Attending Unavailable HARRY, MIKE Admitting Unavailable BUTLER, Deven Zimmerman Attending Unavailable BUTLER, Deven R Attending Unavailable BUTLER, Deven R Attending Unavailable BUTLER, Deven R Attending Unavailable BUTLER, Deven R Attending Unavailable BUTLER, Deven R Admitting Unavailable BUTLER, Deven R Referring Unavailable BUTLER, Deven R Attending Unavailable BUTLER, Deven R Admitting Unavailable Naderer Ramon STEPHENSON Primary Care Provider RAMON MARTINES Attending Unavailable BOBBI, RAMON Attending Unavailable BOBBI, RAMON Attending Unavailable Orzech, Yi X Attending Unavailable BUTLER, Deven R Attending Unavailable BUTLER, Deven R Attending Unavailable Orzech, Yi Alfonso Attending Unavailable BUTLER, Deven R Attending Unavailable Allergies Allergy Classification Reported Allergen(s) Allergy Type Date of Onset Reaction(s) Facility (1 source) 30278,00 Drug allergy (disorder) 11-15-2010 [facility] Repository Medications Current Medications Medication Drug Class(es) Dates Sig (Normalized) Sig (Original) aspirin 81 mg delayed release oral tablet (9 sources) Platelet Aggregation Inhibitor, Nonsteroidal Anti-inflammatory Drug Start: 05-31-2024 take 1 tablet by mouth once daily aspirin 81 mg Oral EC Tab 81 mg = 1 tab(s), Oral, Daily, Refills(s) 0 Start Date: 05/31/24 Status: Ordered Aspirin 81 Activ e citalopram 10 mg oral tablet (10 sources) Serotonin Reuptake Inhibitor Start: 12-01-2023 citalopram 10 mg Tab Refills(s) 0 Start Date: 12/01/23 Status: Ordered docusate sodium 100 mg oral capsule (7 sources) Start: 12-01-2023 take 1 capsule by mouth twice daily as needed for constipation docusate sodium 100 mg Cap 100 mg = 1 cap(s), Oral, BID, PRN for constipation, # 20 cap(s), Refills(s) 0 Start Date: 12/01/23 Status: Ordered donepezil hydrochloride 10 mg oral tablet (9 sources) Start: 01-08-2024 donepezil 10 mg Tab 10 mg = 1 tab(s), Refills(s) 0 Start Date: 05/31/24 Status: Ordered Donepezil HCl Ac tive Flonase (2 sources) Corticosteroid Start: 12-01-2023 Flonase mcg, D aily, Refill(s) 0 Start Date: 12/01/23 Status: Ordered gabapentin 300 mg oral capsule (5 sources) Anti-epileptic Agent Start: 12-01-2023 gabapenti n 300 mg Cap Refills(s) 0 Start Date: 12/01/23 Status: Ordered Start: 07-19-2023 take 1 capsule by mo [facility] in the morning gabapentin (Neurontin) 100 MG capsule Take 100 mg by mouth in the morning and 100 mg before bedtime. 07/19/2023 Active hydrALAZINE hydrochloride 50 mg oral tablet (13 sources) Arteriolar Vasodilator Start: 07-19-2024 take 1 tablet by mouth three times daily hydrALAZINE (Apresoline) 50 MG tablet Indications: Essential (primary) hypertension (CMS/HCC) TAKE 1 TABLET BY MOUTH THREE TIMES DAILY 90 tablet 5 07/19/2024 Active Start: 12-01-2023 take 1 mg by mouth f our times daily hydrALAZINE 25 mg Tab mg tab(s), Oral, QID, Refills(s) 0 Start Date: 12/01/23 Status: Ordered hydroCHLOROthiazide 25 mg / lisinopril 20 mg oral tablet (11 sources) Thiazide Diuretic, Angiotensin Converting Enzyme Inhibitor Start: 12-01-2023 hydrochlorothiazide-lisinopr il 25 mg-20 mg Tab Refill(s) 0 Start Date: 12/01/23 Status: Ordered Start: 11-02-2023 take 1 tablet by kayla once daily lisinopril-hydroCHLOROthiazide 20-25 MG tablet Indications: Type 2 diabetes mellitus without complications (CMS/HCC) TAKE 1 TABLET BY MOUTH DAILY 90 tablet 3 11/02/2023 Active Lisinopril-hydro CHLOROthiazide Active hydrOXYzine hydrochloride 25 mg oral tablet (3 sources) Antihistamine Start: 08-05-2024 take 1 tablet by mouth four times daily as needed for anxiety hydrOXYzine HCl (Atarax) 25 MG tablet Indications: Generalized anxiety disorder (CMS/HCC) TAKE 1 TABLET BY MOUTH FOUR TIMES DAILY NEEDED FOR ANXIETY or FOR ITCHING 60 tablet 2 08/05/2024 Active 24 hr isosorbide mononitrate 60 mg extended release oral tablet (11 sources) Nitrate Vasodilator Start: 05-05-2023 isosorbide mononitrate 60 mg ER Tab Refills(s) 0 Start Date: 12/01/23 Status: Ordered Isosorbide [place] itrate ER Active latanoprost (8 sources) Prostaglandin Analog Start: 12-01-[address] ophthalmic qPM, Refill(s) 0 Start Date: 12/01/23 Status: Ordered Latanoprost Acti ve Claritin (7 sources) Start: 12-01-2023 Claritin Daily , Refills(s) 0 Start Date: 12/01/23 Status: Ordered lovastatin 40 mg oral tablet (11 sources) HMG-CoA Reductase Inhibitor Start: 12-01-2023 lovastatin 40 mg Tab Refills(s) 0 Start Date: 12/01/23 Status: Ordered Lovastatin Activ e 24 hr metFORMIN hydrochloride 500 mg extended release oral tablet (11 sources) Biguanide Start: 12-13-2023 take 2 tablets by mouth every twenty-four hours in the morning metFORMIN XR (Glucophage-XR) 500 MG 24 hr tablet Indications: Type 2 diabetes mellitus with hyperglycemia, without long-term current use of insulin (CMS/HCC) Take 2 tablets (1,000 mg) by mouth in the morning and 2 tablets (1,000 mg) before bedtime. Do not crush, chew, or split.. 360 tablet 3 12/13/2023 Active Start: 12-01-2023 take 1 mg by mouth once daily metformin 500 mg ER Tab mg tab(s), Oral, Daily, Refills(s) 0 Start Date: 12/01/23 Status: Ordered metFORMIN HCl Ac tive Metoprolol (1 source) beta-Adrenergic [place] Metoprol ol Succinate ER Active Miconazole (1 source) Azole Antifungal Start: 4 End: miconazole topical 2% powder 1 ada, Topical, BID for 7 day(s), 85 gm, Refill(s) 0, [facility], 177, cm, 05/31/24 10:47:00 EDT, Height/Length Dosing, 84, kg, 05/31/24 10:47:00 EDT, Weight Dosing Start Date: 08/13/24 Stop Date: 08/20/24 Status: Ordered naproxen 500 mg oral tablet (4 sources) Nonsteroidal Anti-inflammatory Drug take 1 tablet by mouth in the morning naproxen (Naprosyn) 500 MG tablet Take 500 mg by mouth in the morning. Active Naproxen Active omeprazole 40 mg delayed release oral capsule (5 sources) Proton Pump Inhibitor Start: 08-15-2022 take 1 capsule by mouth in the morning omeprazole (PriLOSEC) [address] capsule Take 40 mg by mouth in the morning. 08/15/2022 Active 24 hr oxybutynin chloride 10 mg extended release oral tablet (11 sources) Cholinergic Muscarinic Antagonist Start: 01-30-2024 take 2 tablets by mouth once daily oxybutynin 10 mg ER Tab 20 mg = 2 tab(s), Oral, Daily, # 60 tab(s), Refills(s) 11, Pharmacy: [id number], 177, cm, 01/30/24 11:11:00 EDT, Height/Length Dosing, 85, kg, 12/01/23 9:25:00 EST, Weight Dosing Start Date: 01/30/24 Status: Ordered Start: 12-01-2023 take 1 mg by mouth once daily oxybutynin 15 mg ER Tab mg tab(s), Oral, Daily, Refills(s) 0 Start Date: 12/01/23 Status: Ordered Start: 09-14-2023 take 1 tablet by kayla th every twenty-four hours in the morning oxybutynin XL (Ditropan-XL) 15 MG 24 hr tablet Indications: BPH associated with nocturia Take 1 tablet (15 mg) by mouth in the morning. 30 tablet 5 09/14/2023 Active Miralax (10 sources) Osmotic Laxative Start: 12-01-2023 take 1 g by mouth once daily MiraLax gm, Oral, Daily, Refill(s) 0 Start Date: 12/01/23 Status: Ordered Start: 09-16-2022 polyethylene g lycol, PEG, 3350 (Glycolax) 17 GM/SCOOP powder mix 1 (ONE) capful in EIGHT ounces OF liquid and drink DAILY 09/16/2022 Active PreserVision AREDS (1 source) PreserVision ARE DS Active sennosides, alf 8.6 mg oral capsule (3 sources) Start: 06-04-2024 take 1 capsule by mouth once daily Sennosides (Senna) 8.6 MG capsule Indications: Chronic constipation Take 1 capsule by mouth Daily 30 capsule 5 06/04/2024 Active sodium chloride 1000 mg oral tablet (10 sources) Start: 04-19-2024 End: 04-19-2025 take 1 tablet by mouth in the morning, then take 1 tablet by mouth in the evening, then take 1 tablet by mouth at bedtime sodium chloride 1 g tablet Indications: Hyponatremia Take 1 tablet (1 g) by mouth in the morning and 1 tablet (1 g) in the evening and 1 tablet (1 g) before bedtime. 90 tablet 5 04/19/2024 04/19/2025 Active Start: 12-01-2023 sodium chlorid e 1000 mg oral tablet, soluble Refill(s) 0 Start Date: 12/01/23 Status: Ordered tamsulosin hydrochloride 0.4 mg oral capsule (11 sources) alpha-Adrenergic [place] Start: 07-19-2024 take 2 capsules by mouth once daily tamsulosin (Flomax) 0.4 MG 24 hr capsule Indications: Benign prostatic hyperplasia with lower urinary tract symptoms TAKE 2 CAPSULES BY MOUTH DAILY 180 capsule 1 07/19/2024 Active Start: 12-01-2023 take 1 capsule by [facility] twice daily tamsulosin 0.4 mg Cap 0.4 mg = 1 cap(s), Oral, BID, Refills(s) 0 Start Date: 12/01/23 Status: Ordered Start: 12-01-2023 take 1 mg by mouth once daily tamsulosin 0.4 mg Cap mg cap(s), Oral, Daily, Refills(s) 0 Start Date: 12/01/23 Status: Ordered Tamsulosin HCl A ctive Wrist Brace - (1 source) Start: 09-05-2022 Wrist Brace - as directed Aug, Active Zinc (7 sources) Start: 12-01-2023 take 1 mg by [...] procedure, # 2 tab(s), Refills(s) 0, Pharmacy: [id number], 177, cm, 12/01/23 9:25:00 EST, Height/Length Dosing, 85, kg, 12/01/23 9:25:00 EST, Weight Dosing Start Date: 12/01/23 Status: Ordered Problems Active Problems Problem Classification Problem Date Documented Da te Episodic/Chronic Anxiety disorders (3 sources) Generalized anxiety disorder; Translations: [Generalized anxiety disorder] Onset: 12-13-2023 12-13-2023 Chronic Cancer of prostate (10 sources) Personal history of malignant neoplasm of prostate; Translations: [History of malignant neoplasm of prostate] Onset: 12-01-2023 Episodic Cardiac dysrhythmias (6 sources) Unspecified atrial fibrillation; Translations: [Sick sinus syndrome] Onset: 05-29-2018 Chronic Chronic kidney disease (5 sources) Chronic kidney disease stage 3A ; Translations: [Stage 3a chronic kidney disease (HCC)] Onset: 12-13-2023 12-13-2023 Chronic Conditions associated with dizziness or vertigo (4 sources) Dizziness and giddiness; Translations: [Benign paroxysmal vertigo, unspecified ear] Onset: 12-26-2022 Episodic Conduction disorders (4 sources) Encounter for adjustment and management of automatic implantable cardiac defibrillator; Translations: [Presence of cardiac pacemaker] Onset: 10-11-2023 Chronic Congestive heart failure; nonhypertensive (3 sources) Chronic diastolic heart failure; Translations: [Chronic diastolic (congestive) heart failure] Onset: 12-13-2023 12-13-2023 Chronic Coronary atherosclerosis and other heart disease (7 sources) Atherosclerotic heart disease of [place] coronary artery with unstable angina pectoris; Translations: [Coronary atherosclerosis] Onset: 05-29-2018 12-13-2023 Chronic Delirium, dementia, and amnestic and other cognitive disorders (7 sources) Alzheimer's disease with late onset; Translations: [Senile dementia] Onset: 12-21-2022 Chronic Diabetes mellitus with complications (9 sources) Type 2 diabetes mellitus with hyperglycemia; Translations: [Hyperglycemia due to type 2 diabetes mellitus] Onset: 09-26-2022 Chronic Diabetes mellitus without complication (9 sources) Type 2 diabetes mellitus without complications; Translations: [Diabetes mellitus] Onset: 05-29-2018 03-02-2020 Chronic Disorders of lipid metabolism (5 sources) Hyperlipidemia, unspecified; Translations: [Dyslipidemia] Onset: 05-29-2018 12-13-2023 Chronic Esophageal disorders (5 sources) Gastro-esophageal reflux disease without esophagitis; Translations: [Gastroesophageal reflux disease] Onset: 05-29-2018 12-13-2023 Chronic Essential hypertension (9 sources) Essential (primary) hypertension; Translations: [Benign essential hypertension] Onset: 05-29-2018 Chronic Genitourinary symptoms and ill-defined conditions (10 sources) Incontinence without sensory awareness; Translations: [Incontinence without sensory awareness] Onset: 12-01-2023 Chronic Genitourinary symptoms and ill-defined conditions (17 sources) History of urinary tract infection; Translations: [Personal history of urinary (tract) infections] Onset: 12-01-2023 Episodic Glaucoma (10 sources) Glaucoma; Translations: [Unspecified glaucoma] Onset: 12-13-2023 03-02-2020 Chronic Hyperplasia of prostate (13 sources) Benign prostatic hypertrophy with outflow obstruction; Translations: [Benign prostatic hyperplasia with lower urinary tract symptoms] Onset: 12-01-2023 Chronic Mood disorders (3 sources) Moderate recurrent major depression; Translations: [Major depressive disorder, recurrent, moderate] Onset: 12-13-2023 12-13-2023 Chronic Osteoarthritis (7 sources) Arthritis 03-02-2020 Chronic Other aftercare (1 source) shelter (current) use of antithrombotics/antip latelets; Translations: [FLOOR RUNNER (CURRENT) USE OF ANTITHROMBOTICS/ANTIP LATELETS] Onset: 05-29-2018 Episodic Other aftercare (2 sources) shelter (current) use of aspirin; Translations: [SKILLED NURSING (CURRENT) USE OF ASPIRIN] Onset: 05-29-2018 Episodic Other aftercare (1 source) Other alf (current) drug therapy; Translations: [OTH FLOOR RUNNER CURRENT DRUG THERAPY] Onset: 12-28-2022 Episodic Other aftercare (1 source) shelter (current) use of oral hypoglycemic drugs; Translations: [SKILLED NURSING USE ORAL HYPOGLYCEMIC DX] Onset: 12-28-2022 Episodic Other and ill-defined heart disease (7 sources) Heart disease 03-02-2020 Chronic Other diseases of bladder and urethra (3 sources) Detrusor overactivity; Translations: [Overactive bladder] Onset: 12-01-2023 Chronic Other diseases of bladder and urethra (7 sources) Overactive bladder 12-01-2023 Chronic Other diseases of kidney and ureters (1 source) Urinary tract obstruction; Translations: [Other obstructive and reflux uropathy] Onset: 08-12-2024 Episodic Other ear and sense organ disorders (7 sources) Hearing loss 03-02-2020 Chronic Other gastrointestinal disorders (3 sources) Chronic constipation; Translations: [Other constipation] Onset: 06-04-2024 06-04-2024 Episodic Other injuries and conditions due to external causes (1 source) Unspecified injury of left wrist, hand and finger(s), initial encounter Episodic Other male genital disorders (7 sources) Impotence 03-02-2020 Chronic Other nervous system disorders (1 source) Unsteadiness on feet; Translations: [UNSTEADINESS ON FEET] Onset: 12-06-2022 Episodic Other upper respiratory disease (3 sources) Allergic rhinitis due to pollen; Translations: [Allergic rhinitis due to pollen] Onset: 12-13-2023 12-13-2023 Chronic Screening or history of mental health and substance abuse (1 source) Personal history of nicotine dependence; Translations: [PERSONAL HISTORY OF NICOTINE DEPENDENCE] Onset: 05-29-2018 Episodic Spondylosis; intervertebral disc disorders; other back problems (8 sources) Spondylosis without myelopathy or radiculopathy, lumbar region; Translations: [Lumbar spondylosis] Onset: 12-06-2022 Chronic Sprains and strains (1 source) Unspecified sprain of left wrist, initial encounter Episodic Unclassified (2 sources) Unknown / UNK(Unknown) Onset: 05-29-2018 Unclassified (1 source) shelter (current) use of oral hypoglycemic drugs; Translations: [SKILLED NURSING (CURRENT) USE OF ORAL HYPOGLYCEMIC DRUGS] Onset: 05-29-2018 Unclassified (1 source) Alzheimer's disease with late onset; Translations: [Alzheimer's disease with late onset] Onset: 01-06-2023 Unclassified (1 source) Unspecified injury of left wrist, hand and finger(s), initial encounter; Translations: [Unspecified injury of left wrist, hand and finger(s), initial encounter] Onset: 09-05-2022 Unclassified (7 sources) Drug therapy finding 03-02-2020 Past or Other Problems Problem Classification Problem Date Documented Da te Episodic/Chronic Cardiac dysrhythmias (3 sources) Bradycardia, unspecified; Translations: [BRADYCARDIA UNSPECIFIED] Onset: 12-28-2022 Episodic Fluid and electrolyte disorders (3 sources) Hyponatremia; Translations: [Hypo-osmolality and hyponatremia] Onset: 12-25-2023 12-25-2023 Episodic Mood disorders (2 sources) Mood disorders Onset: 08-13-2024 08-13-2024 Other aftercare (3 sources) Long-term current use of drug therapy; Translations: [Other director long term care (current) drug therapy] Onset: 12-13-2023 12-13-2023 Episodic Results Test Name Value Interpretation Reference Range Facility Ambulatory Visit Summaryon 1 Ambulatory Visit Summary Ambulatory Visit Summary EDWIN OROURKE :1935 Visit Date:08/13/2024 Ambulatory Visit Instructions Your Diagnosis BPH with urinary obstruction Gross hematuria Incontinence without sensory awareness OAB (overactive bladder) History of prostate cancer History of UTI Other obstructive and reflux uropathy Your Care Team Attending Physician - ISAI Mora APRN, Yi Alfonso Primary Care Physician - RAMON MARTINES MD This Is Your Medications List aspirin (aspirin 81 mg Oral EC Tab) citalopram (citalopram 10 mg Tab) docusate (docusate sodium 100 mg Cap) donepezil (donepezil 10 mg Tab) hydrALAZINE (hydrALAZINE 25 mg Tab) hydrochlorothiazide-lisinopril (hydrochlorothiazide-lisinopril 25 mg-20 mg Tab) isosorbide mononitrate (isosorbide mononitrate 60 mg ER Tab) latanoprost ophthalmic loratadine (Claritin) lovastatin (lovastatin 40 mg Tab) metformin (metformin 500 mg ER Tab) miconazole topical (miconazole topical 2% powder) oxybutynin (oxybutynin 10 mg ER Tab) polyethylene glycol 3350 (MiraLax) sodium chloride (sodium chloride 1000 mg oral tablet, soluble) tamsulosin (tamsulosin 0.4 mg Cap) zinc sulfate (Zinc) Procedures Performed Cystoscopy (01/30/2024), UDS - Urodynamics (01/30/2024), Appendectomy, Arthroplasty of knee, CE - Cataract extraction, Implantation of radioactive seed into prostate, Placement of stent in cardiac conduit. What to do next Scheduled Follow-Up Appointments Monday 11:00 AM EST Where: [facility] [address] [address]- Medications What How Much When Instructions New miconazole topical (miconazole topical 2% powder) 1 Application Topical 2 times a day Duration: 7 Days Pickup at [facility] Unchanged aspirin (aspirin 81 mg Oral EC Tab) 1 Tablets By Mouth Every day Unchanged citalopram (citalopram 10 mg Tab) Unchanged docusate (docusate sodium 100 mg Cap) 1 Capsules By Mouth 2 times a day as needed for for constipation Unchanged donepezil (donepezil 10 mg Tab) 1 Tablets Unchanged hydrALAZINE (hydrALAZINE 25 mg Tab) By Mouth 4 times a day Unchanged hydrochlorothiazide-lisinopril (hydrochlorothiazide-lisinopril 25 mg-20 mg Tab) Unchanged isosorbide mononitrate (isosorbide mononitrate 60 mg ER Tab) Unchanged latanoprost ophthalmic Once a day (in the evening) Unchanged loratadine (Claritin) Every day Unchanged lovastatin (lovastatin 40 mg Tab) Unchanged metformin (metformin 500 mg ER Tab) By Mouth Every day Unchanged oxybutynin (oxybutynin 10 mg ER Tab) 2 Tablets By Mouth Every day Unchanged polyethylene glycol 3350 (MiraLax) By Mouth Every day Unchanged sodium chloride (sodium chloride 1000 mg oral tablet, soluble) Unchanged tamsulosin (tamsulosin 0.4 mg Cap) 1 Capsules By Mouth 2 times a day Unchanged zinc sulfate (Zinc) By Mouth Every day Pharmacy Information [facility]: [address] [place], [place] [id number] [phone] Allergies No Known Allergies Problems Ongoing - Any problem that you are currently receiving treatment for. Anticoagulated Arthritis BPH with urinary obstruction Deafness Diabetes Erectile dysfunction Glaucoma Gross hematuria Heart disease History of prostate cancer History of UTI Incontinence without sensory awareness OAB (overactive bladder) Patient Survey You may receive a survey via text or e-mail asking about your office visit. Please share your experience with us by completing your survey. We appreciate your feedback and thank you for choosing us for your care. [facility] Ambulatory Visit Summaryon 1 Ambulatory Visit Summary Ambulatory Visit Summary EDWIN OROURKE :1935 Visit Date:07/19/2024 Ambulatory Visit Instructions Your Care Team Attending Physician - MÓNICA STEPHENSON, Deven Zimmerman Primary Care Physician - RAMON MARTINES MD This Is Your Medications List aspirin (aspirin 81 mg Oral EC Tab) citalopram (citalopram 10 mg Tab) docusate (docusate sodium 100 mg Cap) donepezil (donepezil 10 mg Tab) hydrALAZINE (hydrALAZINE 25 mg Tab) hydrochlorothiazide-lisinopril (hydrochlorothiazide-lisinopril 25 mg-20 mg Tab) isosorbide mononitrate (isosorbide mononitrate 60 mg ER Tab) latanoprost ophthalmic loratadine (Claritin) lovastatin (lovastatin 40 mg Tab) metformin (metformin 500 mg ER Tab) oxybutynin (oxybutynin 10 mg ER Tab) polyethylene glycol 3350 (MiraLax) sodium chloride (sodium chloride 1000 mg oral tablet, soluble) tamsulosin (tamsulosin 0.4 mg Cap) zinc sulfate (Zinc) Procedures Performed Cystoscopy (01/30/2024), UDS - Urodynamics (01/30/2024), Appendectomy, Arthroplasty of knee, CE - Cataract extraction, Implantation of radioactive seed into prostate, Placement of stent in cardiac conduit. What to do next Scheduled Follow-Up Appointments Monday 11:00 AM EDT Where: [facility] [address] [place] [address]- Medications What How Much When Instructions Unchanged aspirin (aspirin 81 mg Oral EC Tab) 1 Tablets By Mouth Every day Unchanged citalopram (citalopram 10 mg Tab) Unchanged docusate (docusate sodium 100 mg Cap) 1 Capsules By Mouth 2 times a day as needed for for constipation Unchanged donepezil (donepezil 10 mg Tab) 1 Tablets Unchanged hydrALAZINE (hydrALAZINE 25 mg Tab) By Mouth 4 times a day Unchanged hydrochlorothiazide-lisinopril (hydrochlorothiazide-lisinopril 25 mg-20 mg Tab) Unchanged isosorbide mononitrate (isosorbide mononitrate 60 mg ER Tab) Unchanged latanoprost ophthalmic Once a day (in the evening) Unchanged loratadine (Claritin) Every day Unchanged lovastatin (lovastatin 40 mg Tab) Unchanged metformin (metformin 500 mg ER Tab) By Mouth Every day Unchanged oxybutynin (oxybutynin 10 mg ER Tab) 2 Tablets By Mouth Every day Unchanged polyethylene glycol 3350 (MiraLax) By Mouth Every day Unchanged sodium chloride (sodium chloride 1000 mg oral tablet, soluble) Unchanged tamsulosin (tamsulosin 0.4 mg Cap) 1 Capsules By Mouth 2 times a day Unchanged zinc sulfate (Zinc) By Mouth Every day Allergies No Known Allergies Problems Ongoing - Any problem that you are currently receiving treatment for. Anticoagulated Arthritis BPH with urinary obstruction Deafness Diabetes Erectile dysfunction Glaucoma Gross hematuria Heart disease History of prostate cancer History of UTI Incontinence without sensory awareness OAB (overactive bladder) Patient Survey You may receive a survey via text or e-mail asking about your office visit. Please share your experience with us by completing your survey. We appreciate your feedback and thank you for choosing us for your care. [facility] Ambulatory Visit Summaryon 0 06-21-2024 Ambulatory Visit Summary Ambulatory Visit Summary EDWIN OROURKE :1935 Visit Date:06/21/2024 Ambulatory Visit Instructions Your Care Team Attending Physician - MÓNICA STEPHENSON, Deven Zimmerman Primary Care Physician - RAMON MARTINES MD This Is Your Medications List aspirin (aspirin 81 mg Oral EC Tab) citalopram (citalopram 10 mg Tab) docusate (docusate sodium 100 mg Cap) donepezil (donepezil 10 mg Tab) hydrALAZINE (hydrALAZINE 25 mg Tab) hydrochlorothiazide-lisinopril (hydrochlorothiazide-lisinopril 25 mg-20 mg Tab) isosorbide mononitrate (isosorbide mononitrate 60 mg ER Tab) latanoprost ophthalmic loratadine (Claritin) lovastatin (lovastatin 40 mg Tab) metformin (metformin 500 mg ER Tab) oxybutynin (oxybutynin 10 mg ER Tab) polyethylene glycol 3350 (MiraLax) sodium chloride (sodium chloride 1000 mg oral tablet, soluble) tamsulosin (tamsulosin 0.4 mg Cap) zinc sulfate (Zinc) Procedures Performed Cystoscopy (01/30/2024), UDS - Urodynamics (01/30/2024), Appendectomy, Arthroplasty of knee, CE - Cataract extraction, Implantation of radioactive seed into prostate, Placement of stent in cardiac conduit. What to do next Scheduled Follow-Up Appointments Monday 11:00 AM EDT Where: [facility] [place] [address]- Medications What How Much When Instructions Unchanged aspirin (aspirin 81 mg Oral EC Tab) 1 Tablets By Mouth Every day Unchanged citalopram (citalopram 10 mg Tab) Unchanged docusate (docusate sodium 100 mg Cap) 1 Capsules By Mouth 2 times a day as needed for for constipation Unchanged donepezil (donepezil 10 mg Tab) 1 Tablets Unchanged hydrALAZINE (hydrALAZINE 25 mg Tab) By Mouth 4 times a day Unchanged hydrochlorothiazide-lisinopril (hydrochlorothiazide-lisinopril 25 mg-20 mg Tab) Unchanged isosorbide mononitrate (isosorbide mononitrate 60 mg ER Tab) Unchanged latanoprost ophthalmic Once a day (in the evening) Unchanged loratadine (Claritin) Every day Unchanged lovastatin (lovastatin 40 mg Tab) Unchanged metformin (metformin 500 mg ER Tab) By Mouth Every day Unchanged oxybutynin (oxybutynin 10 mg ER Tab) 2 Tablets By Mouth Every day Unchanged polyethylene glycol 3350 (MiraLax) By Mouth Every day Unchanged sodium chloride (sodium chloride 1000 mg oral tablet, soluble) Unchanged tamsulosin (tamsulosin 0.4 mg Cap) 1 Capsules By Mouth 2 times a day Unchanged zinc sulfate (Zinc) By Mouth Every day Allergies No Known Allergies Problems Ongoing - Any problem that you are currently receiving treatment for. Anticoagulated Arthritis BPH with urinary obstruction Deafness Diabetes Erectile dysfunction Glaucoma Gross hematuria Heart disease History of prostate cancer History of UTI Incontinence without sensory awareness OAB (overactive bladder) Patient Survey You may receive a survey via text or e-mail asking about your office visit. Please share your experience with us by completing your survey. We appreciate your feedback and thank you for choosing us for your care. Normal [facility] C Urineon 06-02-2024 Bacteria identified Cx Nom (U) Microbiology PROCEDURE: Urine Culture [R1] SOURCE: U Random BODY SITE: COLLECTED DATE/TIME: 05/31/2024 11:33 EDT RECEIVED DATE/TIME: 05/31/2024 18:48 EDT START DATE/TIME: 05/31/2024 18:48 EDT FREE TEXT SOURCE: MÓNICA STEPHENSON, Deven BUTLER MD, Deven Zimmerman FINAL REPORTS Final Report [] Verified Date/Time: 06/02/2024 10:04 EDT >100,000 cfu/ml Pseudomonas aeruginosa SUSCEPTIBILITY RESULTS LEGEND: S=Susceptible, N/R=Not Reported, Blank=Data not available, or drug not advisable or tested, I=Intermediate, ESBL=Extended spectrum beta-lactamase, R=Resistant, TFG=Thymidine-dependent strain, LYLA=Beta-lactamase positive, LUCIANO=mcg/m;(mg/L), S*=Predicted susceptible interp, R*=Predicted resistant interp __ PA Antibiotic LUCIANO Dilutn LUCIANO Interp Aztreonam <=4 S Cefepime <=2 S Ceftazidime 4 S Ceftazidime/ <=8 S Avibactam Ciprofloxacin <=0.25 S Gentamicin 8 I Levofloxacin <=0.5 S Meropenem <=1 S Piperacillin/ <=8 S Tazobactam Tobramycin <=2 S Performing Locations R1: This test was performed at: [facility], [address] [place] [address], [phone]- , [place], Normal [facility] Comment on above: Performed By: #### [id number] #### [facility] [address] [place] [address] Urology Office/Clinic Noteon 05-31-2024 Urology Office/Clinic Note Urology Office/Clinic Note Chief Complaint Severe incontinence pt wears a condom catheter HPI Staff 4 month f/u to cysto/uros done 01/30/24. Last seen IO 12/01/23. Dx: hx of prostate cancer *Brachytherapy ~20yrs ago*, incontinence wo sensory awareness OAB, BPH wiht obstruction, hx of UTI. *Tamsulosin 0.8mg BID and increased Oxybutynin ER 20mg qd May 24 pt had blood in his urine and was taken to the [facility] ED and was started on Cefdinir 300mg BID for 10 days of which he still has 3 days left. Pt and feels it is not helping. Pt has a condom catheter. The blood has cleared and his urine in the bag is clear but looks purulent in the tubing. Incomplete bladder emptying: pt has a cath Hematuria: blood has cleared Leaking: no Urge incontinence: severe. Pt wears a condom catheter Abdominal pain: no Flank pain: no History of Present Illness Tests reviewed: reviewed UDS report. I have reviewed the previous health record information and history for this patient from Dr. Butler. I have reviewed and verified the staff [...] See HPI. Physical Exam Vitals & Measurements T: 37 ?C(Temporal Artery) HR: 62(Peripheral) RR: 16 BP: 130/71 HT: 70 in HT: 177 cm WT: 84 kg WT: 184.8 lb BMI: 26.81 General Appearance: alert, no distress, well nourished, well developed male. Bladder: condom catheter. Assessment/Plan Residing at [facility]. Pt accompanied by . 1. Gross hematuria (R31.0: Gross hematuria) Pt presented to [facility] ER 05/24/24 with gross hematuria. Started on Cefdinir 300mg bid x 10 days. Has 3 days left. states no culture was done. Pt and his do not feel this is helping. Currently uses a condom catheter. Blood has cleared but urine is dark yellow and appears thick in catheter tubing. States pt was previously on hospice and they checked a culture and started pt on Cipro. states cipro did help. 2. Incontinence without sensory awareness (N39.42: Incontinence without sensory awareness) Reports he had a catheter placed in the hospital at the end of 09/2023 due to uncontrolled urination, but after he went to [facility] on 10/17/23 the catheter was removed within a week of being there due to his urine having pus and thought he needed treatment for UTI. Treated with antibiotic but does not know which one. reports pt has back issues. States the reason he is at [facility] is due to the inability to walk. MRI lumbar spine that was done 03/2023 ~does show herniated discs, one at L5-S1. S/p cysto 01/30/24 - Severe trabeculation. Diffuse open diverticuli. No bladder tumors. S/p urodynamics 01/30/24 - moderate bladder pressure and a fairly low flow rate. he had a mild PVR of 260 cc. ~Due to his somewhat labile blood pressure, we will not start Myrbetriq. Will attempt to raise his dose of Oxybutynin ER to 20mg qd. Utilizing condom catheter. states that his chair at home is soaked with urine. Recommended a standard catheter to improve leakage and overall daily quality of life. Blank placed in office today. No complications. -Trial standard catheter for at least 2 mos -Catheter exchange q4wks -Specimen to be sent for culture from catheter 3. OAB (overactive bladder) (N32.81: Overactive bladder) Taking Oxybutynin 15mg ER qd. Could be due to radiation. At the time of cysto and UDS 01/30/24 ~due to his somewhat labile blood pressure, we will not start Myrbetriq. Will attempt to raise his dose of Oxybutynin ER to 20mg qd. 4. BPH with urinary obstruction (N40.1: Benign prostatic hyperplasia with lower urinary tract symptoms) S/p cysto 01/30/24 - moderate hypertrophy. Taking Flomax 0.8mg qd. See #2. 5. History of prostate cancer (Z85.46: Personal history of malignant neoplasm of prostate) PSA: 02/06/20 - <0.05 Latest PSA on file. S/p brachytherapy approx. 20 years ago. 6. History of UTI (Z87.440: Personal history of urinary (tract) infections) See #1. No urine sample provided today. ?from incomplete emptying. Follow-up With When Contact Information Deven BUTLER MD, URL [address] [place] [address]- Additional Instructions: Catheter change in 4 weeks Patient Education Indwelling Urinary Catheter Care, Adult I, Shena Taylor, personally scribed for (more content not included)... Normal [facility] Comment on above: Result Comment: Electronically Signed By : Deven BUTLER MD\.br\Date and Time Signed: 05/31/24 11:13 EDT\.br\Electronically Co-Signed By: Shena Taylor\.br\Date and Time Co-Signed: 05/31/24 11:02 EDT\.br\Electronically Co-Signed By: Shena Taylor\.br\Date and Time Co-Signed: 05/31/24 11:07 EDT Office Visiton 04-02-2024 Follow-up visit [id number] Edwin Orourke 1935 M Date Provider Department [facility] No family history on file Level of Service:39835 SC OFFICE/OUTPATIENT ESTABLISHED LOW MDM 20 MIN Normal [facility] Consent for Procedure/Surger yon 01-30-2024 Consent for Procedure/Surger y [id number]#1.00TIFF Normal [facility] Consent for Treatmenton 01-14 Consent for Treatment [id number]#1.00TIFF Normal [facility] IntraOperative Documentson 0 01-30-2024 IntraOperative Documents [id number]#1.00TIFF Normal [facility] IntraOperative Documents [id number]#1.00TIFF Normal [facility] Main OR Intraoperative Recor don 01-30-2024 Main OR Intraoperative Record IntraOp Document Type FTURO Summary Primary Physician: Deven BUTLRE MD Finalized Date/Time: 01/30/24 11:23:13 Pt. Name: EDWIN OROURKE/Sex: 1935 Male Med Rec #: [id number] Physician: Deven BUTLER MD Financial #: [id number] Pt. Type: O Room/Bed: / Admit/Disch: 01/30/24 09:23:33 - Institution: Case Times FTURO Entry 1 Patient Times In Room 01/30/24 11:17:00 Out Room 01/30/24 11:29:00 Procedure Times Start 01/30/24 11:19:00 Stop 01/30/24 11:24:00 Anesthesia Times Last Modified By: MARKEL Sol RN, Ruthann 01/30/24 11:22:58 Case Attendance FTURO Entry 1 Entry 2 Entry 3 Case Attendee Deven BUTLER MD, RN, CNOR, Sumit MOSLEYN, Priscilla Enciso Role Performed Surgeon - Primary Supervisor [employer] - Primary Scrub - Primary Time In 01/30/24 11:17:00 01/30/24 11:17:00 01/30/24 11:17:00 Time Out 01/30/24 11:29:00 01/30/24 11:29:00 01/30/24 11:29:00 Procedure CYSTOSCOPY LOCAL(.) CYSTOSCOPY LOCAL(.) CYSTOSCOPY LOCAL(.) Comments Last Modified By: TIFFANY Sol RNOR, MARKEL Sol RN, MARKEL Sol RN, Ruthann 01/30/24 Zaria 01/30/24 Zaria 01/30/24 11:22:59 11:22:59 [...] Position Verified Availability Equipment, Medication Time Out Deven BUTLER MD, Verified (If Participants Sweta MIRZA, MARKEL, Applicable) Sumit Enciso LPN, Jessica D Time [...] MARKEL Sol RN, Ruthann 01/30/24 11:23 Normal [facility] Main OR Preoperative Recordo n 01-30-2024 Main OR Preoperative Record Holding Area Document Type FTURO Summary Primary Physician: Deven BUTLER MD Finalized Date/Time: 01/30/24 11:20:16 Pt. Name: EDWIN OROURKE/Sex: 1935 Male Med Rec #: [id number] Physician: Deven BUTLER MD Financial #: [id number] Pt. Type: O Room/Bed: / Admit/Disch: 01/30/24 [...] 11:11 Jaylene Castillo RN 01/30/24 11:20 Normal [facility] Operative Reporton Operative Report Patient: EDWIN OROURKE Age: 89 years Sex: Male : 1935 Associated Diagnoses: None Author: Dveen BUTLER MD Procedure Operative Information Details: Date/ [...] oxybutynin ER to 20 mg daily. Normal [facility] Comment on above: Result Comment: Electronically Signed By : MÓNICA STEPHENSON, Deven Zimmerman\.br\Date and Time Signed: 01/30/24 11:30 EDT Outpatient Surgery Discharge Instructionon 01-30-2024 Outpatient Surgery Discharge Instruction [id number]#1.00TIFF Normal [facility] Progress Note-Physicianon Progress Note-Physician Patient: EDWIN OROURKE [...] list: All Problems Arthritis / SNOMED CT 1647180 / Confirmed History of prostate cancer / SNOMED CT 5082205810 / Confirmed Deafness / SNOMED CT 67482204 / Confirmed Diabetes / SNOMED CT 658631930 / Confirmed Glaucoma / SNOMED CT 22685408 / Confirmed Heart disease / SNOMED CT 55574672 / Confirmed Erectile dysfunction / SNOMED CT 3854336070 / Confirmed BPH with urinary obstruction / SNOMED CT 7177379923 / Confirmed Anticoagulated / SNOMED CT 018180902 / Confirmed OAB (overactive bladder) / SNOMED CT 7843849015 / Confirmed Incontinence without sensory awareness / SNOMED CT 3499692873 / Confirmed History of UTI / SNOMED CT 4503819436 / Confirmed Histories Past Medical History: No active or resolved past medical history items have been selected or recorded. Family History: Procedure history: Appendectomy (729195748). CE - Cataract extraction (8355913351). Placement of stent in cardiac conduit (8980084420). Arthroplasty of knee bilateral (66238675). Implantation of radioactive seed into prostate (3175624280). Social History Social & Psychosocial Habits Alcohol [...] We will reevaluate in 4 months. Normal [facility] Comment on above: Result Comment: Electronically Signed By : MÓNICA STEPHENSON, Deven Zimmerman\.br\Date and Time Signed: 01/30/24 11:35 EDT Office Visiton 12-26-2023 Follow-up visit [id number] Edwin Orourke 1935 M Date Provider Department Center 12/26/2023 [facility] No family history on file Level of Service:31706 SC OFFICE/OUTPATIENT ESTABLISHED LOW MDM 20 MIN Normal [facility] Ambulatory Visit Summaryon 0 12-01-2023 Ambulatory Visit [...] MÓNICA STEPHENSON, ANA MARIA Briscoe When: Where: [address] [place] [address]- Medications What How Much When Instructions Unchanged [...] uterus. ? (more content not included)... Normal [facility] Home Recordson 12-01 [facility] Records [id number]#1.00TIFF [facility] Home Records [id number]#1.00TIFF [facility] Patient Educationon 12-01-19 Patient Education Urology Urinary [...] nerve stimulation). ? For women, using a director global medical affairs to prevent urine leaks. This is a [...] urine. ? (more content not included)... Normal [facility] Urology Office/Clinic Noteon 12-01-2023 Urology Office/Clinic [...] urination but after he went to [facility] on 10/17/23 the catheter was removed within [...] here with his today. Residing at [facility]. 1. History of prostate cancer (Z85.46: Personal history of malignant neoplasm of prostate) PSA: 02/06/20 - <0.05 Latest PSA on file. S/p brachytherapy approx. 20 years ago. 2. Incontinence without sensory awareness (N39.42: Incontinence without sensory awareness) Reports he had a catheter placed in the hospital at the end of 09/2023 due to uncontrolled urination, but after he went to the [facility] on 10/17/23 the catheter was removed within [...] had a bowel movement in several days. CT staff has been providing pt with laxatives. reports pt has back issues. States the reason he is at [facility] is due to the inability to walk. [...] Contact Information MÓNICA STEPHENSON, Deven Zimmerman, URL [address] [place] [address]- Additional Instructions: Scheduling cysto and uro's Patient Education Urinary Incontinence I, Shena Taylor, personally scribed for Dr. Butler on 12/01/2023 10:07:45. Elect (more content not included)... [facility] Comment on above: Result Comment: Electronically Signed By : Deven BUTLER MD\.br\Date and Time Signed: 12/01/23 10:12 EST\.br\Electronically Co-Signed By: Shena Taylor\.br\Date and Time Co-Signed: 12/01/23 10:08 EST Lab Reportson 10-18-2023 Lab Reports [id number]#1.00TIFF [facility] Lab Reportson 10-17-2023 Lab Reports [id number]#1.00TIFF Normal [facility] Lab Reports [id number]#1.00TIFF Normal [facility] Lab Reports [id number]#1.00TIFF Normal [facility] Lab Reports [id number]#1.00TIFF [facility] Lab Reports [id number]#1.00TIFF Normal [facility] Lab Reports [id number]#1.00TIFF [facility] Lab Reports [id number]#1.00TIFF [facility] Lab Reports [id number]#1.00TIFF [facility] Lab Reports [id number]#1.00TIFF [facility] Office Visiton 10-11-2023 Follow-up visit [id number] Edwin Orourke 1935 M Date Provider Department Center 10/11/2023 Yanira-DASHA, ЕЛЕНА [facility] No family history on file Level of Service:91212 SC POSTOP FOLLOW UP VISIT RELATED TO ORIGINAL PX [facility] HPon 10-02-2023 [facility] Electrophysiology Note Reason for visit: [...] discontinued due to having ER visit with [facility] for complaints of dizziness and was found [...] ECG 05/04/2018: Atrial fibrillation, possible old septal ME. ECG 05/28/2018 showed sinus rhythm with 1st degree AV block and PAC. Possible anteroseptal ME. ECG today 03/21/2019: sinus rhythm with 1st [...] alcohol abuse, Hematolog (more content not included)... [facility] NURSNOTEon 10-02-2023 NURSNOTE RN educated pt on d/ c instructions. RN encouraged pt to voice any questions or concerns. Pt verbalizes no questions or concerns at this time. Pt was wheeled off of unit with all of belongings. [facility] NURSNOTE CHG wipes and betadi ne nasal swabs completed. [facility] Orders Onlyon 10-02-2023 Orders Only [id number] Edwin Orourke 1935 M Date Provider Department Center 10/02/2023 EMETERIO GONZALEZ [facility] No family history on file [facility] Orders Onlyon 09-25-2023 Orders Only [id number] Edwin Orourke 1935 M Date Provider Department Center 09/25/2023 EMETERIO GONZALEZ [facility] No family history on file [facility] Telemedicineon 08-22-2023 Telemedicine [id number] Edwin Orourke 1935 M Date Provider Department Center 08/22/2023 MIKE CASTILLO [facility] No family history on file Level of Service:91971 SC PHYS/QHP TELEPHONE EVALUATION 11-20 MIN [facility] 36on 07-27-2023 36 No vm [facility] MR lumbar spine wo conon MR lumbar spine wo con [facility] [place] [address] [place] [address] MRI Report Signed Patient: Edwin Orourke MR#: [id number] : 1935 Acct:[id number] Age/Sex: 88 / M ADM Date: 03/24/23 Loc: MR Room: Type: [facility] Attending Dr: Ramon Martines MD Copies to: [...] Mamta Barrios M.D.03/25/2023 2:26 PM Dictation Location: [place] [address] Transcribed By: [facility] 03/25/23 142 Dictated By: Mamta Barrios II, MD 03/25/23 1419 Signed By: 03/25/23 1426 [facility] PROF CHEM 8 (BAS METB)on Anion gap [Moles/Vol] 10.7 mmol/L Normal [facility] Comment on above: Performed By: #### TSH #### [facility] [address] [place] [address] [address] Yue Vega Calcium [Mass/Vol] 9.4 mg/dL Normal 8.5-10.1 [facility] Comment on above: Performed By: #### TSH #### [facility] [address] [place], [place] [address] Dr. Yue Vega Chloride [Moles/Vol] 97 mmol/L Critically low 98-107 [facility] Comment on above: Performed By: #### TSH #### [facility] [address] [place] [address] [address] Yue Vega CO2 [Moles/Vol] 31.8 mmol/L Normal 21.0-32.0 [facility] Comment on above: Performed By: #### TSH #### [facility] [address] [place] [address] [address] Yue Vega Creatinine [Mass/Vol] 1.23 mg/dL Normal 0.70-1.30 [facility] Comment on above: Performed By: #### TSH #### [facility] [address] [place] [address] [address] Yue Vega EGFR-AF SWAZI >60 Normal >=60 [facility] Comment on above: Performed By: #### TSH #### [facility] [address] [place] [address] [address] Yue Vega EGFR-NON AF SWAZI 56 mL/min/1.73m2 Critically low >=60 [facility] Comment on above: Performed By: #### TSH #### [facility] [address] [place] [address] [address] Yue Vega Glucose [Mass/Vol] 153 mg/dL Critically high 74-106 [facility] Comment on above: Performed By: #### TSH #### [facility] [address] [place] [address] [address] Yue Vega Potassium [Moles/Vol] 4.5 mmol/L Normal 3.5-5.1 [facility] Comment on above: Performed By: #### TSH #### [facility] [address] [place] [address] [address] Yue Vega Sodium [Moles/Vol] 135 mmol/L Critically low 136-145 [facility] Comment on above: Performed By: #### TSH #### [facility] [address] [place] [address] [address] Yue Vega Urea nitrogen [Mass/Vol] 22.0 mg/dL Critically high 7.0-18.0 [facility] Comment on above: Performed By: #### TSH #### [facility] [address] [place], [place] [address] Dr. Yue Vega Urea nitrogen/Creatin ine [Mass ratio] 17.9 mg/mg Normal [facility] Comment on above: Performed By: #### TSH #### [facility] [address] [place], [place] [address] Dr. Yue Vega Creatinine (Bld) [Mass/Vol]O rdered By: Suzi Murray on 01-06-2023 Creatinine [Mass/Vol] 1.2 mg/dL 0.6-1.3 [facility] Comment on above: ER/ESD physician is notified/shown all I STAT results.Critical values may be confirmed by laboratory testing ifdeemed necessary by ER attending doctor. MR head/brain wo/w conon MR head/brain wo/w con [facility] [place] [address] [place] [address] MRI Report Signed Patient: Edwin Orourke MR#: [id number] : 1935 Acct:[id number] Age/Sex: 87 / M ADM Date: 01/06/23 Loc: MR Room: Type: [facility] Attending Dr: Jose Eduardo Murray [...] Mamta Barrios M.D.01/06/2023 5:26 PM Dictation Location: [place] [address] Transcribed By: [facility] 01/06/231725 Dictated By: Mamta Barrios II, MD 01/06/231719 Signed By: 01/06/231725 [facility] BNPon 12-26-2022 Natriuretic peptide B (Bld) [Mass/Vol] 483.0 pg/mL Normal <=1,800.0 [facility] Comment on above: Performed By: #### TSH #### [facility] [address] [place] [address] Dr. Yeu Vega CARDIAC MAMTA ADMITon 023 CK [Catalytic activity/Vol] 121 U/L Normal 39-308 [facility] Comment on above: Performed By: #### TSH #### [facility] [address] [place] [address] [address] Yue Vega CK.MB [Mass/Vol] 1.73 ng/mL Normal <=3.60 [facility] Comment on above: Performed By: #### TSH #### [facility] [address] [place] [address] [address] Yue Vega HSTROP 11.9 pg/mL Normal 4.0-76.1 [facility] Comment on above: Result Comment: CUT-OFF POINTS HAVE BEEN ESTABLISHED BASED ON THE FOURTH UNIVERSAL DEFINITIONS OF MYOCARDIAL INFARCTION. THE UPPER REFERENCE LIMIT (URL) OF TROPONIN, DEFINED THE 99TH PERCENTILE OF cTnI DISTRIBUTION IN A REFERENCE POPULATION, HAS BEEN CONFIRMED THE DECISION THRESHOLD FOR ME DIAGNOSIS. Performed By: #### T SH #### [facility] [address] [place] [address] Dr. Yue Vega CARI 113 ng/mL Critically high 16-96 [facility] [facility] Comment on above: Performed By: #### TSH #### [facility] [address] [place] [address] Dr. Yue Vega CBC AUTO DIFFon 12-26-2022 BASO # 0.1 103/ul Normal 0.0-0.1 [facility] Comment on above: Performed By: #### TSH #### [facility] [address] [place] [address] Dr. Yue Vega Basophils/100 WBC (Bld) 0.5 % Normal 0.2-2.0 [facility] Comment on above: Performed By: #### TSH #### [facility] [address] [place] [address] Dr. Yue Vega EO # 0.0 103/ul Normal 0.0-0.7 [facility] Comment on above: Performed By: #### TSH #### [facility] [address] [place] [address] Dr. Yue Vega Eosinophils/100 WBC (Bld) 0.3 % Critically low 0.9-7.0 [facility] Comment on above: Performed By: #### TSH #### [facility] [address] [place] [address] Dr. Yue Vega Erythrocyte distribution width (RBC) [Ratio] 12.4 % Normal 11.0-15.0 [facility] Comment on above: Performed By: #### TSH #### [facility] [address] [place] [address] Dr. Yue Vega Hematocrit (Bld) [Volume fraction] 42.7 % Normal 42.0-54.0 [facility] Comment on above: Performed By: #### TSH #### [facility] [address] [place] [address] Dr. Yue Vega Hemoglobin (Bld) [Mass/Vol] 14.5 g/dL Normal 14.0-18.0 [facility] Comment on above: Performed By: #### TSH #### [facility] [address] [place] [address] Dr. Yue Vega IG # 0.05 10e3/ul Critically high 0.00-0.03 [facility] Comment on above: Performed By: #### TSH #### [facility] [address] [place] [address] Dr. Yue Vega IG % 0.4 % Normal 0.0-0.5 [facility] Comment on above: Performed By: #### TSH #### [facility] [address] [place] [address] Dr. Yue Vega LYMPH # 1.4 103/ul Normal 1.2-3.8 [facility] Comment on above: Performed By: #### TSH #### [facility] [address] [place] [address] Dr. Yue Vega Lymphocytes/100 WBC (Bld) 10.7 % Critically low 20.5-60.0 [facility] Comment on above: Performed By: #### TSH #### [facility] [address] [place] [address] Dr. Yue Vega MANUAL DIFF REQ NO Normal [facility] Comment on above: Performed By: #### TSH #### [facility] [address] [place] [address] Dr. Yue Vega MCH (RBC) [Entitic mass] 30.7 pg Normal 25.9-34.0 [facility] Comment on above: Performed By: #### TSH #### [facility] [address] [place] [address] Dr. Yue Vega MCHC (RBC) [Mass/Vol] 34.0 g/dL Normal 29.9-35.2 [facility] Comment on above: Performed By: #### TSH #### [facility] [address] [place] [address] Dr. Yue Vega MCV (RBC) [Entitic vol] 90.3 fL Normal 80.0-94.0 [facility] Comment on above: Performed By: #### TSH #### [facility] [address] [place] [address] Dr. Yue Vega MONO # 0.5 103/ul Normal 0.3-0.8 [facility] Comment on above: Performed By: #### TSH #### [facility] [address] [address] [address] Yue Vega Monocytes/100 WBC (Bld) 4.2 % Normal 1.7-12.0 [facility] Comment on above: Performed By: #### TSH #### [facility] [address] [place] [address] Dr. Yue Vega NEUT # 10.8 103/ul Critically high 1.4-6.5 The [facility] Comment on above: Performed By: #### TSH #### [facility] [address] [place] [address] Dr. Yue Vega Neutrophils/100 WBC (Bld) 83.9 % Critically high 43.0-75.0 [facility] Comment on above: Performed By: #### TSH #### [facility] [address] [place] [address] Dr. Yue Vega Platelet mean volume (Bld) [Entitic vol] 9.6 fL Normal 9.5-13.5 [facility] Comment on above: Performed By: #### TSH #### [facility] [address] [place] [address] Dr. Yue Vega PLT 223 103/ul Normal 150-450 [facility] Comment on above: Performed By: #### TSH #### [facility] [address] [place] [address] Dr. Yue Vega RBC 4.73 106/ul Normal 4.70-6.10 [facility] Comment on above: Performed By: #### TSH #### [facility] [address] [place] [address] Dr. Yue Vega WBC 12.9 103/ul Critically high 4.0-11.0 The [facility] Comment on above: Performed By: #### TSH #### [facility] [address] [place] [address] HEAD WO CONon [...] SUZI NANCE Date: 2022-12-26 14:21 Normal [facility] URINE PROFILEon 3 Bilirubin Ql (U) Negative Normal NEGATIVE The [facility] Comment on above: Performed By: #### SERG LOBORO #### [facility] [address] [place] [address] Dr. Yue Vega Clarity (U) CLEAR Normal CLEAR [facility] Comment on above: Performed By: #### YAMIL UMICRO #### [facility] [address] [place] [address] Dr. Yue Vega Color (U) LT. YELLOW Normal YELLOW [facility] Comment on above: Performed By: #### SERG LOBORO #### [facility] [address] [place] [address] Dr. Yue Vega ERUAHD A micrscopic examina tion will be performed if indicated. Normal [facility] Comment on above: Performed By: #### SERG LOBORO #### [facility] [address] [place] [address] Dr. Yue Vega Glucose Ql (U) 250 mg/dl Abnormal NEGATIVE [facility] Comment on above: Performed By: #### YAMIL UMICRO #### [facility] [address] [place] [address] Dr. Yue Vega Hemoglobin Ql (U) Negative Normal NEGATIVE [facility] Comment on above: Performed By: #### YAMIL UMICRO #### [facility] [address] [place] [address] Dr. Yue Vega Ketones Ql (U) Negative Normal NEGATIVE [facility] Comment on above: Performed By: #### YAMIL UMICRO #### [facility] [address] [place] [address] Dr. Yue Vega LEUKOCYTES Negative Normal NEGATIVE [facility] Comment on above: Performed By: #### YAMIL UMICRO #### [facility] [address] [place] [address] Dr. Yue Vega Nitrite Ql (U) Negative Normal NEGATIVE [facility] Comment on above: Performed By: #### YAMIL UMICRO #### [facility] [address] [place] [address] Dr. Yue Vega pH (U) 7.0 [pH] Normal 5-9 [facility] Comment on above: Performed By: #### YAMIL UMICRO #### [facility] [address] [place] [address] Dr. Yue Vega Protein (U) [Mass/Vol] 30 mg/dL Abnormal NEGATIVE/ TRACE [facility] Comment on above: Performed By: #### YAMIL UMICRO #### [facility] [address] [place] [address] Dr. Yue Vega SPEC GRAVITY 1.015 Normal 1.005-<=1. 025 [facility] Comment on above: Performed By: #### YAMIL UMICRO #### [facility] [address] [place] [address] Dr. Yue Vega UR MICRO IND INDICATED Normal [facility] Comment on above: Performed By: #### ERURDEEJAY #### [facility] [address] [place] [address] Dr. Yue Vega Urobilinogen Qn (U) 0.2 {Anat'U}/dL Normal 0.2 - 1.0 [facility] Comment on above: Performed By: #### SERG LOBORO #### [facility] [address] [place] [address] Dr. Yue Vega PROF 14(COMP METB)on 023 Albumin [Mass/Vol] 4.1 g/dL Normal 3.4-5.0 [facility] Comment on above: Performed By: #### TSH #### [facility] [address] [place] [address] Dr. Yue Vega Albumin/Globulin [Mass ratio] 1.1 {ratio} Normal [facility] Comment on above: Performed By: #### TSH #### [facility] [address] [place] [address] Dr. Yue Vega ALP [Catalytic activity/Vol] 110 U/L Normal 46-116 [facility] Comment on above: Performed By: #### TSH #### [facility] [address] [place] [address] Dr. Yue Vega ALT [Catalytic activity/Vol] 24 U/L Normal 16-63 [facility] Comment on above: Performed By: #### TSH #### [facility] [address] [place] [address] Dr. Yue Vega Anion gap [Moles/Vol] 9.5 mmol/L Normal [facility] Comment on above: Performed By: #### TSH #### [facility] [address] [place] [address] Dr. Yue Vega AST [Catalytic activity/Vol] 25 U/L Normal 15-37 [facility] Comment on above: Performed By: #### TSH #### [facility] [address] [place] [address] Dr. Yue Vega Bilirubin [Mass/Vol] 1.2 mg/dL Critically high 0.2-1.0 [facility] Comment on above: Performed By: #### TSH #### [facility] [address] [address] [address] Yue Vega Calcium [Mass/Vol] 9.3 mg/dL Normal 8.5-10.1 [facility] Comment on above: Performed By: #### TSH #### [facility] [address] [address] [address] Yue Vega Chloride [Moles/Vol] 96 mmol/L Critically low 98-107 [facility] Comment on above: Performed By: #### TSH #### [facility] [address] [address] [address] Yue Vega CO2 [Moles/Vol] 29.4 mmol/L Normal 21.0-32.0 The [facility] Comment on above: Performed By: #### TSH #### [facility] [address] [address] [address] Yue Vega Creatinine [Mass/Vol] 1.09 mg/dL Normal 0.70-1.30 [facility] Comment on above: Performed By: #### TSH #### [facility] [address] [address] [address] Yue Vega EGFR-AF SWAZI >60 Normal >=60 The [facility] Comment on above: Performed By: #### TSH #### [facility] [address] [address] [address] Yue Vega EGFR-NON AF SWAZI >60 Normal >=60 [facility] Comment on above: Performed By: #### TSH #### [facility] [address] [address] [address] Yue Vega Globulin (S) [Mass/Vol] 3.8 g/dL Normal [facility] Comment on above: Performed By: #### TSH #### [facility] [address] [address] [address] Yue Vega Glucose [Mass/Vol] 218 mg/dL Critically high 74-106 [facility] Comment on above: Performed By: #### TSH #### [facility] [address] [address] [address] Yue Vega Potassium [Moles/Vol] 3.9 mmol/L Normal 3.5-5.1 [facility] Comment on above: Performed By: #### TSH #### [facility] [address] [address] [address] Yue Vega Protein [Mass/Vol] 7.9 g/dL Normal 6.4-8.2 [facility] Comment on above: Performed By: #### TSH #### [facility] [address] [address] [address] Yue Vega Sodium [Moles/Vol] 131 mmol/L Critically low 136-145 [facility] Comment on above: Performed By: #### TSH #### [facility] [address] [place] [address] Dr. Yue Vega Urea nitrogen [Mass/Vol] 19.0 mg/dL Critically high 7.0-18.0 [facility] Comment on above: Performed By: #### TSH #### [facility] [address] [place] [address] Dr. Yue Vega Urea nitrogen/Creatin ine [Mass ratio] 17.4 mg/mg Normal [facility] Comment on above: Performed By: #### TSH #### [facility] [address] [place] [address] Dr. Yue Vega PROTIMEon 12-26-2022 INR Coag (PPP) [Relative time] 1.00 {INR} Normal [facility] Comment on above: Performed By: #### PTT, PT #### [facility] [address] [place] [address] Dr. Yue Vega INR GUIDELINES SEE BELOW Normal The [facility] Comment on above: Result Comment: DESIRED INR: 2.0 - 3.0 C ONDITIONS NOT LISTED BELOW 2.5 - 3.5 FOR PROSTHETIC HEART VALVE REPLACEMENT 2.5 - 3.5 RECURRENT THROMBOSIS Performed By: #### P TT, PT #### [facility] [address] [place] [address] Dr. Yue Vega PT Coag (PPP) [Time] 10.6 s Normal 9.0-11.6 [facility] Comment on above: Performed By: #### PTT, PT #### [facility] [address] [place] [address] Dr. Yue Vega PTTon 12-26-2022 aPTT Coag (Bld) [Time] 29.8 s Normal 22.3-36.2 [facility] Comment on above: Performed By: #### PTT, PT #### [facility] [address] [place] [address] Dr. Yue Vega TSHon 12-26-2022 TSH 2.693 uIU/mL Normal 0.358-3.74 0 [facility] Comment on above: Performed By: #### TSH #### [facility] [address] [place] [address] Dr. Yue Vega URINE MICROSCOPIC ONLYon BACTERIA NONE SEEN Normal NONE SEEN [facility] Comment on above: Performed By: #### ERUR UMICRO #### [facility] [address] [place] [address] Dr. Yue Vega Bacteria identified Cx Nom (U) NOT INDICATED Normal [facility] Comment on above: Performed By: #### ERUR UMICRO #### [facility] [address] [place] [address] Dr. Yue Vega CAST NONE SEEN Normal NONE SEEN [facility] Comment on above: Performed By: #### ERUR, UMICRO #### [facility] [address] [place] [address] Dr. Yue Vega Crystals LM Nom (Urine sed) NONE SEEN Normal NONE SEEN [facility] Comment on above: Performed By: #### ERUR, UMICRO #### [facility] [address] [place] [address] Dr. Yue Vega Epithelial cells LM Ql (Urine sed) NONE SEEN Normal NONE SEEN /RARE [facility] Comment on above: Performed By: #### ERUR, UMICRO #### [facility] [address] [place] [address] Dr. Yue Vega MUCOUS NONE SEEN Normal NONE SEEN [facility] Comment on above: Performed By: #### ERUR, UMICRO #### [facility] [address] [address] [address] Yue Vega RBC 0-2 Normal 0-2 [facility] Comment on above: Performed By: #### DEEJAY LOBO #### [facility] [address] [address] [address] Yue Vega WBC NONE SEEN Normal NONE SEEN [facility] Comment on above: Performed By: #### DEEJAY LOBO #### [facility] [address] [address] [address] Yue Vega XR CHEST 1 Von [...] SAYRA GUILLAUME Date: 2022-12-26 13:12 Normal [facility] METHYLMALONIC ACID (MMA)on 0 12-25-2022 Methylmalonic Acid, Serum 180 nmol/L Normal 0-378 [facility] Comment on above: Performed By: #### MMA2 #### [facility] [address] [place] [address] Dr. Yue Vega TSHon 12-21-2022 TSH 2.790 uIU/mL Normal 0.358-3.74 0 [facility] Comment on above: Performed By: #### TSH #### [facility] [address] [place] [address] Dr. Yue Vega VITAMIN B12on 12-21-2022 Cobalamin (Vitamin B12) [Mass/Vol] 919.0 pg/mL Normal 193.0-986. 0 [facility] Comment on above: Performed By: #### TSH #### [facility] [address] [place] [address] Dr. Yue Vega CBC AUTO DIFFon 09-26-2022 BASO # 0.1 103/ul Normal 0.0-0.1 [facility] Comment on above: Performed By: #### CBC #### [facility] [address] [place] [address] Dr. Yue Vega Basophils/100 WBC (Bld) 0.5 % Normal 0.2-2.0 [facility] Comment on above: Performed By: #### CBC #### [facility] [address] [place] [address] Dr. Yue Vega EO # 0.2 103/ul Normal 0.0-0.7 [facility] Comment on above: Performed By: #### CBC #### [facility] [address] [place] [address] Dr. Yue Vega Eosinophils/100 WBC (Bld) 2.1 % Normal 0.9-7.0 [facility] Comment on above: Performed By: #### CBC #### [facility] [address] [place] [address] Dr. Yue Vega Erythrocyte distribution width (RBC) [Ratio] 12.3 % Normal 11.0-15.0 [facility] Comment on above: Performed By: #### CBC #### [facility] [address] [place] [address] Dr. Yue Vega Hematocrit (Bld) [Volume fraction] 42.0 % Normal 42.0-54.0 [facility] Comment on above: Performed By: #### CBC #### [facility] [address] [place] [address] Dr. Yue Vega Hemoglobin (Bld) [Mass/Vol] 13.9 g/dL Critically low 14.0-18.0 [facility] Comment on above: Performed By: #### CBC #### [facility] [address] [place] [address] Dr. Yue Vega IG # 0.03 10e3/ul Normal 0.00-0.03 [facility] Comment on above: Performed By: #### CBC #### [facility] [address] [place] [address] Dr. Yue Vega IG % 0.3 % Normal 0.0-0.5 [facility] Comment on above: Performed By: #### CBC #### [facility] [address] [place] [address] Dr. Yue Vega LYMPH # 1.9 103/ul Normal 1.2-3.8 [facility] Comment on above: Performed By: #### CBC #### [facility] [address] [place] [address] Dr. Yue Vega Lymphocytes/100 WBC (Bld) 19.8 % Critically low 20.5-60.0 [facility] Comment on above: Performed By: #### CBC #### [facility] [address] [place] [address] Dr. Yue Vega MANUAL DIFF REQ NO Normal [facility] Comment on above: Performed By: #### CBC #### [facility] [address] [place] [address] Dr. Yue Vega MCH (RBC) [Entitic mass] 30.5 pg Normal 25.9-34.0 [facility] Comment on above: Performed By: #### CBC #### [facility] [address] [place] [address] Dr. Yue Vega MCHC (RBC) [Mass/Vol] 33.1 g/dL Normal 29.9-35.2 [facility] Comment on above: Performed By: #### CBC #### [facility] [address] [place] [address] Dr. Yue Vega MCV (RBC) [Entitic vol] 92.3 fL Normal 80.0-94.0 [facility] Comment on above: Performed By: #### CBC #### [facility] [address] [place] [address] Dr. Yue Vega MONO # 0.9 103/ul Critically high 0.3-0.[address] [facility] Comment on above: Performed By: #### CBC #### [facility] [address] [address] [address] Yue Vega Monocytes/100 WBC (Bld) 9.5 % Normal 1.7-12.0 [facility] Comment on above: Performed By: #### CBC #### [facility] [address] [address] [address] Yue Vega NEUT # 6.4 103/ul Normal 1.4-6.5 [facility] Comment on above: Performed By: #### CBC #### [facility] [address] [place] [address] Dr. Yue Vega Neutrophils/100 WBC (Bld) 67.8 % Normal 43.0-75.0 [facility] Comment on above: Performed By: #### CBC #### [facility] [address] [place] [address] Dr. Yue Vega Platelet mean volume (Bld) [Entitic vol] 9.4 fL Critically low 9.5-13.5 [facility] Comment on above: Performed By: #### CBC #### [facility] [address] [place] [address] Dr. Yue Vega PLT 264 103/ul Normal 150-450 [facility] Comment on above: Performed By: #### CBC #### [facility] [address] [place] [address] Dr. Yue Vega RBC 4.55 106/ul Critically low 4.70-6.[address] [facility] Comment on above: Performed By: #### CBC #### [facility] [address] [address] [address] Yue Vega WBC 9.4 103/ul Normal 4.0-11.0 [facility] Comment on above: Performed By: #### CBC #### [facility] [address] [place] [address] Dr. Yue Vega GLYCOHEMOGLOBIN A1Con 2021 ADA RECOMMENDATION SEE BELOW Normal [facility] Comment on above: Result Comment: ADA RECOMMENDED LIMIT 4. 0 - 6.0 ADA THERAPEUTIC TARGET < 7.0 ACTION SUGGESTED > 7.0 Performed By: #### A 1C #### [facility] [address] [place] [address] Dr. Yue Vega Glucose [Mass/Vol] 169 mg/dL Normal [facility] Comment on above: Performed By: #### A1C #### [facility] [address] [place] [address] Dr. Yue Vega HbA1c (Bld) [Mass fraction] 7.5 % Critically high 4.5-6.2 [facility] Comment on above: Performed By: #### A1C #### [facility] [address] [place] [address] Dr. Yue Vega LIPID PROFILEon 09-26-2022 CHOL-HDL RATIO NORM SEE BELOW Normal [facility] Comment on above: Result Comment: 3.3 - 4.4 LOW RISK 4.4 - 7.1 AVERAGE RISK 7.1 - 11.0 MODERATE RISK >11.0 HIGH RISK Performed By: #### T SH #### [facility] [address] [place] [address] Dr. Yue Vega Cholesterol [Mass/Vol] 134 mg/dL Normal <=200 [facility] Comment on above: Performed By: #### TSH #### [facility] [address] [place] [address] Dr. Yue Vega Cholesterol in HDL [Mass/Vol] 51 mg/dL Normal 40-60 [facility] Comment on above: Performed By: #### TSH #### [facility] [address] [place] [address] Dr. Yue Vega Cholesterol in LDL [Mass/Vol] 63.4 mg/dL Normal [facility] Comment on above: Performed By: #### TSH #### [facility] [address] [place] [address] Dr. Yue Vega Cholesterol.tota l/Cholesterol in HDL [Mass ratio] 2.6 {ratio} Normal [facility] Comment on above: Performed By: #### TSH #### [facility] [address] [address] [address] Yue Vega HDL NORMAL > or = 60 mg/dl - LO W CARDIOVASCULAR RISK <40 mg/dl - HIGH CARDIOVASCULAR RISK Normal [facility] Comment on above: Performed By: #### TSH #### [facility] [address] [address] [address] Yue Vega LDL CALC NORMAL SEE BELOW Normal The [facility] Comment on above: Result Comment: <100 mg/dl OPTIMAL 100 - 129 mg/dl NEAR OR ABOVE OPTIMAL 130 - 159 mg/dl BORDERLINE HIGH 160 - 189 mg/dl HIGH >190 mg/dl VERY HIGH Performed By: #### T SH #### [facility] [address] [address] [address] Yue Vega Triglyceride [Mass/Vol] 98 mg/dL Normal <=150 [facility] Comment on above: Performed By: #### TSH #### [facility] [address] [address] [address] Yue Vega VLDL CALC 19.6 mg/dL Normal [facility] Comment on above: Performed By: #### TSH #### [facility] [address] [address] [address] Yue Vega LIVER PROFILEon 09-26-2022 Albumin [Mass/Vol] 3.8 g/dL Normal 3.4-5.0 [facility] Comment on above: Performed By: #### LIPID, BMP, LIVER ### # [facility] [address] [address] [address] Yue Vega Albumin/Globulin [Mass ratio] 0.9 {ratio} Normal [facility] Comment on above: Performed By: #### LIPID, BMP, LIVER ### # [facility] [address] [address] [address] Yue Vega ALP [Catalytic activity/Vol] 94 U/L Normal 46-116 [facility] Comment on above: Performed By: #### LIPID, BMP, LIVER ### # [facility] [address] [address] [address] Yue Vega ALT [Catalytic activity/Vol] 34 U/L Normal 16-63 [facility] Comment on above: Performed By: #### LIPID, BMP, LIVER ### # [facility] [address] [place] [address] Dr. Yue Vega AST [Catalytic activity/Vol] 30 U/L Normal 15-37 [facility] Comment on above: Performed By: #### LIPID, BMP, LIVER ### # [facility] [address] [place] [address] Dr. Yue Vega BILI, CONJUGATED 0.2 mg/dL Normal 0.0-0.2 [facility] Comment on above: Performed By: #### LIPID, BMP, LIVER ### # [facility] [address] [place] [address] Dr. Yue Vega Bilirubin [Mass/Vol] 0.9 mg/dL Normal 0.2-1.0 [facility] Comment on above: Performed By: #### LIPID, BMP, LIVER ### # [facility] [address] [place] [address] Dr. Yue Vega Globulin (S) [Mass/Vol] 4.2 g/dL Normal [facility] Comment on above: Performed By: #### LIPID, BMP, LIVER ### # [facility] [address] [place] [address] Dr. Yue Vega Protein [Mass/Vol] 8.0 g/dL Normal 6.4-8.2 [facility] Comment on above: Performed By: #### LIPID, BMP, LIVER ### # [facility] [address] [place] [address] Dr. Yue Vega MICROALBUMIN, RAND URon 09-15 mALB 16.8 mg/L Normal <=30.0 [facility] Comment on above: Performed By: #### ERUR, UMICRO #### [facility] [address] [place] [address] Dr. Yue Vega PROF CHEM 8 (BAS METB)on Anion gap [Moles/Vol] 12.2 mmol/L Normal [facility] Comment on above: Performed By: #### TSH #### [facility] [address] [place] [address] Dr. Yue Vega Calcium [Mass/Vol] 9.4 mg/dL Normal 8.5-10.1 [facility] Comment on above: Performed By: #### TSH #### [facility] [address] [place] [address] Dr. Yue Vega Chloride [Moles/Vol] 99 mmol/L Normal 98-107 [facility] Comment on above: Performed By: #### TSH #### [facility] [address] [place] [address] Dr. Yue Vega CO2 [Moles/Vol] 32.1 mmol/L Critically high 21.0-32.0 [facility] Comment on above: Performed By: #### TSH #### [facility] [address] [place] [address] Dr. Yue Vega Creatinine [Mass/Vol] 1.19 mg/dL Normal 0.70-1.30 [facility] Comment on above: Performed By: #### TSH #### [facility] [address] [place] [address] Dr. Yue Vega EGFR-AF SWAZI >60 Normal >=60 The [facility] Comment on above: Performed By: #### TSH #### [facility] [address] [place] [address] Dr. Yue Vega EGFR-NON AF SWAZI 58 mL/min/1.73m2 Critically low >=60 [facility] Comment on above: Performed By: #### TSH #### [facility] [address] [place] [address] Dr. Yue Vega Glucose [Mass/Vol] 158 mg/dL Critically high 74-106 [facility] Comment on above: Performed By: #### TSH #### [facility] [address] [address] [address] Yue Vega Potassium [Moles/Vol] 4.3 mmol/L Normal 3.5-5.1 [facility] Comment on above: Performed By: #### TSH #### [facility] [address] [place] [address] Dr. Yue Vega Sodium [Moles/Vol] 139 mmol/L Normal 136-145 [facility] Comment on above: Performed By: #### TSH #### [facility] [address] [place], [place] [address] Dr. Yue Vega Urea nitrogen [Mass/Vol] 24.0 mg/dL Critically high 7.0-18.0 [facility] Comment on above: Performed By: #### TSH #### [facility] [address] [place], [place] [address] Dr. Yue Vega Urea nitrogen/Creatin ine [Mass ratio] 20.2 mg/mg Normal [facility] Comment on above: Performed By: #### TSH #### [facility] [address] [place], [place] [address] Dr. Yue Vega XR wrist LT min 3V*on 2021 XR wrist LT min 3V* [facility] [place] [address] [place] [address] XRay Report Signed Patient: Edwin Orourke MR#: [id number] : 1935 Acct:[id number] Age/Sex: 87 / M ADM Date: 09/05/22 Loc: [facility] Room: Type: [facility] Attending Dr: Sanaz ALEX Copies [...] Rene Jr., D.O.09/05/2022 5:57 PM Dictation Location: [place] [address] Transcribed By: [facility] 09/05/221756 Dictated By: Albert Rene Jr, DO 09/05/221756 Signed By: 09/05/221756 Normal [facility] XR wrist LT min 3V* [facility] [employer] Other XR wrist LT min 3V* [facility] [employer] Other XR wrist LT min 3V* [address] [facility] [employer] Other XR wrist LT min 3V* EILEEN Mendez [address] [employer] Other XR wrist LT min 3V* XRay Report [employer] Other XR wrist LT min 3V* Signed [employer] Other XR wrist LT min 3V* Patient: Edwin Orourke MR#: [id number] [employer] Other XR wrist LT min 3V* [id number] [employer] Other XR wrist LT min 3V* : 1935 Acct:[id number] [employer] Other XR wrist LT min 3V* Age/Sex: 87 / M ADM Date: 09/05/22 [employer] Other XR wrist LT min 3V* Loc: [facility] Room: Type: [facility] [facility] Other XR wrist LT min 3V* [facility] Other XR wrist LT min 3V* Copies to: SANAZ CAMPO [employer] Other XR wrist LT min 3V* [facility]ing Provider[facility] Other XR wrist LT min 3V* Date of Service: 09/05/22 [employer] Other XR wrist LT min 3V* XR/XR wrist LT min 3V*: Injury of left wrist, initial encounter [employer] Other XR wrist LT min 3V* LEFT WRIST - 4 views [employer] Other XR wrist LT min 3V* CLINICAL HISTORY: Fall this morning. Now with left wrist pain. [employer] Other XR wrist LT min 3V* COMPARISON: None [employer] Other XR wrist LT min 3V* FINDINGS: [employer] Other XR wrist LT min 3V* No focal soft tissue abnormality. Vascular calcifications. No acute bony process is seen. 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 [employer] Other XR wrist LT min 3V* XR/XR wrist LT min 3V* [employer] Other XR wrist LT min 3V* IMPRESSION: [employer] Other XR wrist LT min 3V* NO ACUTE BONY PROCESS. [employer] Other XR wrist LT min 3V* Impression dictated by: Albert Rene Jr., D.O.09/05/2022 5:57 PM [employer] Other XR wrist LT min 3V* Dictation Location: [place] [address] [employer] Other XR wrist LT min 3V* Transcribed By: MEGAN 09/05/22 [facility] [employer] Other XR wrist LT min 3V* Dictated By: Albert Rene Jr, DO 09/05/22 [facility] [employer] Other XR wrist LT min 3V* Signed By: [employer] Other XR wrist LT min 3V* 09/05/22 [facility] [employer] Other GLYCOHEMOGLOBIN A1Con 2021 ADA RECOMMENDATION SEE BELOW Normal The [facility] Comment on above: Result Comment: ADA RECOMMENDED LIMIT 4. 0 - 6.0 ADA THERAPEUTIC TARGET < 7.0 ACTION SUGGESTED > 7.0 Performed By: #### A 1C #### [facility] [address] [address] [address] Yue Vega Glucose [Mass/Vol] 154 mg/dL Normal [facility] Comment on above: Performed By: #### A1C #### [facility] [address] [address] [address] Yue Vega HbA1c (Bld) [Mass fraction] 7.0 % Critically high 4.5-6.2 [facility] Comment on above: Performed By: #### A1C #### [facility] [address] [address] [address] Yue Vega Cardiovascular Lab Reporton 05-30-[address] [facility] #: [id number] Physician: Devendra Hood M.D.Medicine Service Date: 05/29/2018Division of Birthdate: 1935Cardiology Room #: 3CD [id number] [facility] [place], [place] [address]Qtrsu Fax Cardiovascular Laboratory ReportINDICATION: Edwin Orourke is an 83-year-old man with history ofhypertension, hyperlipidemia, and diabetes. He recently presented to theemergency room in [facility] with typical unstable angina. He thenhad a [...] signed informed consent. He was brought to prosthetics lab technician in a fasting state.The left wrist area was prepped and draped in usual fashion. Tiago's testwas favorable. Access in the left radial artery was obtained usingultrasound guidance and micropuncture technique. A 6-Palauan x 11 cmHydrophilic sheath was left. Verapamil was given through the sheath andheparin was administered intravenously. Bilateral selective coronaryangiography was then performed using 6-Palauan JL4 for engagement of theleft coronary artery and a 6-Palauan JR4 followed by a 6-Palauan ALIREZA catheterfor engagement of the right coronary artery. Catheters were removed.Therapeutic ACT confirmed during the procedure and additional heparin givenas needed. A 6-Palauan XB 3.5 guiding catheter was advanced and [...] 11 atmospheres and post dilated using [employer] [place] 2.5 x 8 mm noncompliant balloon inflated [...] 11atmospheres and post dilated using [employer] [place] 2.5 x 15 mm noncompliantballoon inflated at 18 atmospheres throughout the length of the stent.Angiography was performed. Intracoronary nitroglycerin was administered.It was decided to deploy an additional stent distal to the previouslydeployed stent. This was a Synergy 2.25 x 12 mm stent, deployed at 11atmospheres and post dilated using [employer] [place] 2.5 x 15 mm noncompliantballoon inflated at [...] 05/29/2018/01:20 P/Devendra Flores M.D.Date Trans: 05/30/2018 11:47 A/Johan_JN:[id number]: Darrin Velasquez D.O. [address] [facility] [address] [facility] [address] Ramon Martines M.D. [address] [facility] [address] Normal [facility] POC GLUCOSE LABon 05-30-2018 Glucose mass conc 121 mg/dL High 70-100 [facility] Comment on above: Performed By: #### [id number] ####[facility] [place] [address], [facility] POC GLUCOSE LABon 05-29-2018 Glucose mass conc 126 mg/dL High 70-100 [facility] Comment on above: Performed By: #### [id number] ####[facility] [place] [address], [facility] Glucose mass conc 127 mg/dL High 70-100 [facility] Comment on above: Performed By: #### [id number] ####[facility] [place] [address], [facility] Vital Signs Date Time Vital Sign Value Performing Clinician Facility 08-13-2024 11:04-0400 Body height 177.8 cm Ramon Martines MD Work Phone: [facility] 08-13-2024 11:04-0400 Body temperature 97.11 [degF] Ramon Martines MD Work Phone: [facility] 08-13-2024 11:04-0400 Diastolic blood pressure 52 mm[Hg] Ramon Martines MD Work Phone: [facility] 08-13-2024 11:04-0400 Heart rate 76 /min Ramon Martines MD Work Phone: [facility] 08-13-2024 11:04-0400 Respiratory rate 20 /min Ramon Martines MD Work Phone: [facility] 08-13-2024 11:04-0400 SaO2% (BldA) [Mass fraction] 97 % Ramon Martines MD Work Phone: [facility] 08-13-2024 11:04-0400 Systolic blood pressure 130 mm[Hg] Ramon Martines MD Work Phone: [facility] 05-31-2024 10:44-0400 Blood Pressure Location Deven BUTLER [facility] 05-31-2024 10:44-0400 Body temperature 98.6 [degF] Deven BUTLER [facility] 05-31-2024 10:44-0400 Diastolic blood pressure 71 mm[Hg] Deven BUTLER [facility] 05-31-2024 10:44-0400 Heart rate 62 /min Deven BUTLER [facility] 05-31-2024 10:44-0400 Respiratory rate 16 /min Deven BUTLER [facility] 05-31-2024 10:44-0400 Systolic blood pressure 130 mm[Hg] Deven BUTLER [facility] 12-01-2023 09:23-0500 Blood Pressure Location Devensatnam BUTLER [facility] 12-01-2023 09:23-0500 Diastolic blood pressure 63 mm[Hg] Deven BUTLER [facility] 12-01-2023 09:23-0500 Heart rate 60 /min Deven BUTLER [facility] 12-01-2023 09:23-0500 Respiratory rate 16 /min Deven BUTLER [facility] 12-01-2023 09:23-0500 Systolic blood pressure 111 mm[Hg] Deven BUTLER [facility] 09-05-2022 17:40-0500 Body height 180.34 cm Sanaz Campo Other [facility] Other 09-05-2022 17:40-0500 Body mass index (BMI) [Ratio] 27.89 kg/m2 Sanaz Campo Other [facility] Other 09-05-2022 17:40-0500 Body temperature 97.6 [degF] Sanaz Campo Other [facility] Other 09-05-2022 17:40-0500 Body weight 90.72 kg Sanaz Campo Other [facility] Other 09-05-2022 17:40-0500 Diastolic blood pressure 63 mm[Hg] Sanaz Campo Other [facility] Other 09-05-2022 17:40-0500 Respiratory rate 16 /min Sanaz Campo Other [facility] Other 09-05-2022 17:40-0500 SaO2% (BldA) [Mass fraction] 97 % Sanaz Campo Other [facility] Other 09-05-2022 17:40-0500 Systolic blood pressure 153 mm[Hg] Sanaz Campo Other [facility] Other Encounters Encounter Date Encounter Type Care Provider Facility Start: 09-10-2024 ambulatory Yi Mora Facilit y:[facility] Start: 08-16-2024 ambulatory Deven Dan ty:[facility] Start: 08-13-2024 End: 08-13-2024 ambulatory Yi Mora Facility:[facility] Start: 08-13-2024 End: 08-13-2024 Bamboo flowsheet Ramon Martines MD Work Phone: [facility] Start: 08-13-2024 End: 08-13-2024 Bamboo flowsheet Ramon Martines MD Work Phone: [facility] Start: 08-13-2024 End: 08-13-2024 Patient encounter procedure Ramon Martines MD Work Phone: [facility] Work Phone: Start: 08-13-2024 End: 08-13-2024 Postop follow up visit related to original px Ramon Martines MD Work Phone: [facility] Comment on above: Medicare annual well ness visit, subsequent (Primary Dx); Stage 3a chronic kidney disease (HCC) ([facility]/HCC); Type 2 diabetes mellitus with diabetic chronic kidney disease ([facility]/HCC) Start: 08-13-2024 End: 08-13-2024 ambulatory RAMON MARTINES Not Available Start: 07-26-2024 ambulatory Deven BUTLER Facili ty: [facility] Start: 07-19-2024 End: 07-19-2024 ambulatory Deven BUTLER Facility: [facility] Start: 07-19-2024 End: 07-19-2024 Patient encounter procedure Deven BUTLER [facility] Start: 06-21-2024 End: 06-21-2024 ambulatory Deven BUTLER Facility:[facility] Start: 06-21-2024 End: 06-21-2024 Patient encounter procedure Deven BUTLER [facility] Start: 06-04-2024 End: 06-04-2024 ambulatory RAMON MARTINES Not Available Start: 05-31-2024 End: 05-31-2024 ambulatory Deven BUTLER [facility] Start: 05-31-2024 End: 05-31-2024 Lab Drop off Deven BUTLER [facility] Start: 05-31-2024 End: 05-31-2024 ambulatory Deven BUTLER Facility:[facility] Start: 05-31-2024 End: 05-31-2024 Patient encounter procedure Deven BUTLER [facility] Start: 05-28-2024 End: 05-28-2024 ambulatory [facility] Start: 04-02-2024 End: 04-02-2024 ambulatory [facility] Start: 01-30-2024 End: 01-30-2024 ambulatory Deven BUTLER Facility:[facility] Start: 01-30-2024 End: 01-30-2024 Patient encounter procedure Deven BUTLER [facility] Start: 12-28-2023 End: 12-28-2023 ambulatory [facility] Start: 12-26-2023 End: 12-26-2023 ambulatory [facility] Start: 12-13-2023 End: 12-13-2023 ambulatory RAMON MARTINES Not Available Start: 12-01-2023 End: 12-01-2023 ambulatory Deven BUTLER Facility:[facility] Start: 12-01-2023 End: 12-01-2023 Patient encounter procedure Deven BUTLER [facility] Start: 11-21-2023 End: 11-21-2023 ambulatory [facility] Start: 11-06-2023 End: 11-06-2023 ambulatory Deven BUTLER Facility:[facility] Start: 10-11-2023 End: 10-11-2023 [facility] Start: 10-02-2023 ambulatory [facility] Start: 10-02-2023 End: 10-02-2023 ambulatory [facility] Start: 08-22-2023 End: 08-22-2023 ambulatory [facility] Start: 03-24-2023 End: 03-24-2023 ambulatory Ramon Martines Facility:[facility] Start: 02-16-2023 End: 02-17-[address] DOCTOR NAGEL Facility:[facility] Start: 01-06-2023 End: 01-06-2023 ambulatory Jose Eduardo Murray Facility:[facility] Start: 01-06-2023 End: 01-06-2023 ambulatory MD Ramon Martines Work Phone: [facility] Work Phone: Start: 01-06-2023 End: 01-06-2023 Patient encounter procedure MD Ramon Martines Work Phone: [facility] [address] [place] Work Phone: Start: 12-26-2022 End: 12-26-2022 ambulatory GONZÁLEZ CATIE . Facility:[facility] Start: 12-21-2022 End: 12-22-2022 ambulatory SUZI MURRAY Facility:[facility] Start: 12-06-2022 End: 12-31-[address] RAMON MARTINES Facility:[facility] Start: 09-26-2022 End: 09-27-[address] RAMON MARTINES Facility:[facility] Start: 09-05-2022 End: 09-05-2022 ambulatory Sanaz Campo Facility:[facility] Start: 09-05-2022 End: 09-05-2022 Patient encounter procedure [employer] Sanaz Campo Work Phone: [facility] Start: 09-05-2022 End: 09-05-2022 ambulatory [employer] Sanaz Campo Work Phone: [facility] Work Phone: Start: 09-05-2022 Office outpatient visit 15 minutes Sanaz Campo [facility] Start: 04-19-2022 End: 04-20-[address] RAMON MARTINES Facility:[facility] Start: 05-29-2018 End: 05-30-2018 Patient encounter PROVIDER UNKNOWN Facility:[facility] Start: 05-28-2018 End: 05-29-2018 Patient encounter DEFAULT PHYSICIAN Facility:[facility] Start: 05-20-2018 End: 05-21-2018 Patient encounter DEFAULT PHYSICIAN Facility:[facility] Procedures Date Procedure Procedure Detail Performing Clinician Start: 01-30-2024 Cystoscopy Deven MARTINEZ Start: 01-30-2024 Urodynamic studies Leonar roxanne BUTLER Start: 01-06-2023 MRI of head MD Ramon chapman Work Phone: Start: 09-05-2022 Plain X-ray of left wrist [employer] Sanaz Campo Work Phone: Appendectomy Deven BUTLER Arthroplasty of knee Deven BUTLER Extraction of cataract Mayra BUTLER Implantation of radioactive seed into prostate Deven BUTLER Placement of stent i n cardiac conduit Deven BUTLER Plan of Treatment Date Care Activity Detail Author Start: 07-17-2025 Glaucoma screening Diabetes: R etinopathy Screening [facility] Start: 02-14-2025 End: 02-14-2025 Patient encounter procedure 02/14/2025 11:00 AM EDT Office Visit [facility] [address] [place] [phone] Ramon Martines MD [address] [place] [phone] [facility] Start: 12-21-2024 Urine screening for protein Diabetes: Urine Protein Screening [facility] Start: 12-05-2024 Hemoglobin A1c measurement Diabetes: Hemoglobin A1C [facility] Start: 08-13-2024 End: 08-13-2024 Patient encounter procedure 08/13/2024 11:00 AM EDT Office Visit [facility] [address] [place] [phone] Ramon Martines MD [address] [place] [phone] Arrived [facility] Comment on above: Arrived Start: 06-23-2024 Hemoglobin A1c measurement Diabetes: Hemoglobin A1C [facility] Start: 06-16-2024 Influenza vaccination Influenza Vacc ine (#1) [facility] Start: 1941 Pneumococcal Vaccine : 65+ Years (1 of 2 - PCV) Pneumococcal Vaccine: 65+ Years (1 of 2 - PCV) [facility] Start: 1935 Medicare Annual Wellness (AWV) Medicare Annual Wellness (AWV) [facility] Payers Date Payer Category Payer Self-pay 2021 Private Health Insurance [employer] [place] [id number] 2001 Medicare MEDICARE .[id number] 1959 Medicare [id number] 1959 Unknown [id number] 1937 Unknown [id number] 2.16.840.1.297332.3.579.2. 593 1937 Unknown [id number] 2.16.840.1.105443.3.579.2. 593 1937 Unknown [id number] 2.16.840.1.688481.3.579.2. 593 1937 Unknown [id number] 2.16.840.1.781683.3.579.2. 593 1937 Unknown [id number] 2.16.840.1.944975.3.579.2. 593 1937 Unknown [id number] 2.16.840.1.442492.3.579.2. 593 1937 Unknown [id number] 2.16.840.1.957740.3.579.2. 727 1937 Unknown [id number] 2.16.840.1.992685.3.579.2. 727 1937 Unknown [id number] 2.16.840.1.884570.3.579.2. 727 1937 Unknown [id number] 2.16.840.1.294053.3.579.2. 727 1937 Unknown [id number] 2.16.840.1.402113.3.579.2. 727 1937 Unknown [id number] 2.16.840.1.305455.3.579.2. 727 1937 Unknown [id number] 2.16.840.1.274181.3.579.2. 1259 1937 Unknown [id number] 2.16.840.1.130603.3.579.2. 1259 1937 Unknown [id number] 2.16.840.1.686280.3.579.2. 1259 1937 Unknown [id number] 2.16.840.1.370463.3.579.2. 727 1937 Unknown [id number] 2.16.840.1.106674.3.579.2. 727 1937 Unknown [id number] 2.16.840.1.494210.3.579.2. 727 1937 Unknown [id number] 2.16.840.1.951397.3.579.2. 727 1937 Unknown [id number] 2.16.840.1.320788.3.579.2. 727 Medicare [id number] Unknown Unknown [id number] 2.16.840.1.870108.3.579.2. 531 Unknown [id number] 2.16.840.1.744924.3.579.2. 531 Unknown [id number] 2.16.840.1.731169.3.579.2. 531 Social History Date Type Detail Facility Tobacco smoking stat [facility] Unknown if ever smoked [facility] Work Phone: Start: 1935 Sex Assigned At Male F [facility] Start: 06-04-2024 End: 08-13-2024 Sex Assigned At [facility] Start: 03-02-2020 End: 08-13-2024 Tobacco smoking status Never smoked tobacco (finding) [facility] Start: 06-04-2024 End: 08-13-2024 Alcoholic beverage intake Lifetime non-drinker (finding) [facility] Start: 06-04-2024 End: 08-13-2024 History of Social function [facility] Start: 1935 Sex assigned at Not on file N [facility] Medical Equipment Procedure Code Equipment Code Equipment Origin al Text Equipment Identifier Dates 1 each by In Vit ro route Daily [id number] Start: 12-13-2023 Functional Status Date Assessment Result Facility 05-31-2024 Functional Status N/A [facility] 01-30-2024 Functional Status N/A [facility] 12-01-2023 Functional Status N/A [facility] Clinical Notes 09-05-2022 to 08-13-2024 Ramon Martines MD - 08/13/2024 11:44 AM [facility] Mart[facility] MD - 08/13/2024 11:43 AM [facility] Martines MD - 08/13/2024 11:00 AM EDT Note Date & Type Note Facility 08-13-2024 History of Present illness Narrative Associated Problem(s): Stage 3a chronic kidney disease (HCC) ([facility]/HCC) Renal function stable. Associated Problem(s): Medicare annual wellness visit, subsequent Reviewed labs. Discussed proper diet and regular aerobic exercise. Need aerobic exercise 5-6 days a week for 30 minutes at a time. Smaller portions and limit total calories. Tetanus every 10 years. Advised not to smoke. Discussed daily Aspirin therapy. Images from the original note were not included. Subjective Patient ID: Edwin Orourke is a 89 y.o. male who presents for Medicare Annual Wellness Visit Subsequent. Presents for medicare annual wellness visit. Patient feels well today. Weight unchanged over the past year. Will start home health and PT. Not performing home PT exercises. Notice decreased appetite over past few months. Review of Systems Constitutional: Negative for fatigue. Respiratory: Negative for cough, shortness of breath and wheezing. Cardiovascular: Negative for chest pain and palpitations. Gastrointestinal: Negative for abdominal pain, diarrhea, nausea and vomiting. Genitourinary: Negative for dysuria. Objective Physical Exam Constitutional: General: He is not in acute distress. Appearance: Normal appearance. HENT: Head: Normocephalic. Right Ear: Tympanic membrane and ear canal normal. Left Ear: Tympanic membrane and ear canal normal. Eyes: Extraocular Movements: Extraocular movements intact. Pupils: Pupils are equal, round, and reactive to light. Cardiovascular: Rate and Rhythm: Normal rate and regular rhythm. Heart sounds: No murmur heard. No friction rub. No gallop. Pulmonary: Breath sounds: Normal breath sounds. No wheezing, rhonchi or rales. Abdominal: General: Bowel sounds are normal. There is no distension. Palpations: Abdomen is soft. Tenderness: There is no abdominal tenderness. There is no guarding or rebound. Musculoskeletal: General: Normal range of motion. Left lower leg: No edema. Neurological: General: No focal deficit present. Mental Status: He is alert. Cranial Nerves: No cranial nerve deficit. Deep Tendon Reflexes: Reflexes normal. Assessment/Plan Problem List Items Addressed This Visit Stage 3a chronic kidney disease (HCC) ([facility]) Renal function stable. Medicare annual wellness visit, subsequent - Primary Reviewed labs. Discussed proper diet and regular aerobic exercise. Need aerobic exercise 5-6 days a week for 30 minutes at a time. Smaller portions and limit total calories. Tetanus every 10 years. Advised not to smoke. Discussed daily Aspirin therapy. documented in this encounter [facility] 05-31-2024 Hospital Discharge instructions Patient Education 05/31/2024 10:59:55 Indwelling Urinary Catheter Care, Adult Indwelling Urinary Catheter Care, Adult An indwelling urinary catheter is a thin, flexible tube that is placed into the bladder to help drain urine out of the body. The catheter is inserted into the urethra. The urethra is the part of the body that drains urine from the bladder. Urine drains from the catheter into a drainage bag outside of the body. Taking good care of your catheter will keep it working properly and help to prevent problems from developing. What are the risks? Bacteria may get into your bladder and cause a urinary tract infection. Urine flow can become blocked. This can happen if the catheter is not working correctly, or if you have sediment or a blood clot in your bladder or catheter. Tissue near the catheter may become irritated and may bleed. How to wear your catheter and your drainage bag Supplies needed Adhesive tape or a leg strap. Alcohol wipe or soap and water (if you use tape). A clean towel (if you use tape). Overnight drainage bag. Smaller drainage bag (leg bag). Wearing your catheter and bag Use adhesive tape or a leg strap to attach your catheter to your leg. Make sure the catheter is not pulled tight. If a leg strap gets wet, replace it with a dry one. If you use adhesive tape: 1.Use an alcohol wipe or soap and water to wash off any stickiness on your skin where you had tape before. 2.Use a clean towel to pat-dry the area. 3.Apply the new tape. You should have received a large overnight drainage bag and a smaller leg bag that fits underneath clothing. You may wear the overnight bag at any time, but you should not wear the leg bag at night. Make sure the overnight drainage bag is always lower than the level of your bladder, but do not let it touch the floor. Before you go to sleep, hang the bag inside a wastebasket that is covered by a clean plastic bag. Secure the leg bag according to appian bpm developer's instructions. This may be above or below the knee, depending on the length of the tubing. Make sure that: ?The leg bag is below the bladder. ?The tubing does not have loops or too much tension. How to care for the skin around the catheter Supplies needed A clean washcloth. Water and mild soap. A clean towel. Caring for your skin and catheter Every day, use a clean washcloth and soapy water to clean the skin around your catheter. 1.Wash your hands with soap and water. 2.Wet a washcloth in warm water and mild soap. 3.Clean the skin around your urethra. ?If you are female: ?Use one hand to gently spread the folds of skin around your vagina (labia). ?With the washcloth in your other hand, wipe the inner side of your labia on each side. Do this in a hiowc-di-cjhu direction. ?If you are male: ?Use one hand to pull back any skin that covers the end of your penis (foreskin). ?With the washcloth in your other hand, wipe your penis in small circles. Start wiping at the tip of your penis, then move outward from the catheter. ?Move the foreskin back in place, if needed. 4.With your free hand, hold the catheter close to where it enters your body. Keep holding the catheter during cleaning so it does not get pulled out. 5.Use your other hand to clean the catheter with the washcloth. ?Only wipe downward on the catheter, toward the bag. ?Do not wipe upward toward your body, because that may push bacteria into your urethra and cause infection. 6.Use a clean towel to pat-dry the catheter and the skin around it. Make sure to wipe off all soap. 7.Wash your hands with soap and water. Shower every day. Do not take baths. Do not use cream, ointment, or lotion on the area where the catheter enters your body, unless your health care provider tells you to do that. Do not use powders, sprays, or lotions on your genital area. Check your skin around the catheter every day for signs of infection. Check for: ?Redness, swelling, or pain. ?Fluid or blood. ?Warmth. ?Pus or a bad smell. How to empty the drainage bag Supplies needed Rubbing alcohol. Gauze pad or cotton ball. Adhesive tape or a leg strap. Emptying the bag Empty your drainage bag (your overnight drainage bag or your leg bag) when it is ? full, or at least 2 3 times a day. Clean the drainage bag according to the appian bpm developer's instructions or as told by your health care provider. 1.Wash your hands with soap and water. 2.Detach the drainage bag from your leg. 3.Hold the drainage bag over the toilet or a clean container. Make sure the drainage bag is lower than your hips and bladder. This stops urine from going back into the tubing and into your bladder. 4.Open the pour spout at the bottom of the bag. 5.Empty the urine into the toilet or container. Do not let the pour spout touch any surface. This precaution is important to prevent bacteria from getting in the bag and causing infection. 6.Apply rubbing alcohol to a gauze pad or cotton ball. 7.Use the gauze pad or cotton ball to clean the pour spout. 8.Close the pour spout. 9.Attach the bag to your leg with adhesive tape or a leg strap. 10.Wash your hands with soap and water. How to change the drainage bag Supplies needed: Alcohol wipes. A clean drainage bag. Adhesive tape or a leg strap. Changing the bag Replace your drainage bag with a clean bag if it leaks, starts to smell bad, or looks dirty. 1.Wash your hands with soap and water. 2.Detach the dirty drainage bag from your leg. 3.Pinch the catheter with your fingers so that urine does not spill out. 4.Disconnect the catheter tube from the drainage tube at the connection valve. Do not let the tubes touch any surface. 5.Clean the end of the catheter tube with an alcohol wipe. Use a different alcohol wipe to clean the end of the drainage tube. 6.Connect the catheter tube to the drainage tube of the clean bag. 7.Attach the clean bag to your leg with adhesive tape or a leg strap. Avoid attaching the new bag too tightly. 8.Wash your hands with soap and water. General instructions Never pull on your catheter or try to remove it. Pulling can damage your internal tissues. Always wash your hands before and after you handle your catheter or drainage bag. Use a mild, fragrance-free soap. If soap and water are not available, use hand tombstone erector. Always make sure there are no twists, bends, or kinks in the catheter tube. Always make sure there are no leaks in the catheter or drainage bag. Drink enough fluid to keep your urine pale yellow. Do not take baths, swim, or use a hot tub. If you are female, wipe from front to back after having a bowel movement. Contact a health care provider if: Your catheter gets clogged. Your catheter starts to leak. You have signs of infection at the catheter site, such as: ?Redness, swelling, or pain where the catheter enters your body. ?Fluid, blood, pus, or a bad smell coming from the area where the catheter enters your body. ?The area where the catheter enters your body feels warm to the touch. You have signs of a urinary tract infection, such as: ?Fever or chills. ?Urine smells unusually bad. ?Cloudy urine. ?Pain in your abdomen, legs, lower back, or bladder. ?Nausea or vomiting. Get help right away if: You see blood in the catheter. Your urine is pink or red. Your bladder feels full. Your urine is not draining into the bag. Your catheter gets pulled out. Summary An indwelling urinary catheter is a thin, flexible tube that is placed into the bladder to help drain urine out of the body. The catheter is inserted into the part of the body that drains urine from the bladder (urethra). Take good care of your catheter to keep it working properly and help prevent problems from developing. Always wash your hands before and after you handle your catheter or drainage bag. Never pull on your catheter or try to remove it. This information is not intended to replace advice given to you by your health care provider. Make sure you discuss any questions you have with your health care provider. Document Revised: 06/02/2022 Document Reviewed: 06/02/2022 [employer] Patient Education 2022 [place] [employer]. Follow Up Care 01/30/2024 11:29:46 With:MÓNICA STEPHENSON, Deven Zimmerman URL Address: [address] [place] [address] [place] [address]- When: Unknown [facility] 05-31-2024 Note Patient Education Urology Indwelling Urinary Catheter Care, Adult An indwelling urinary catheter is a thin, flexible tube that is placed into the bladder to help drain urine out of the body. The catheter is inserted into the urethra. The urethra is the part of the body that drains urine from the bladder. Urine drains from the catheter into a drainage bag outside of the body. Taking good care of your catheter will keep it working properly and help to prevent problems from developing. What are the risks? ? Bacteria may get into your bladder and cause a urinary tract infection. ? Urine flow can become blocked. This can happen if the catheter is not working correctly, or if you have sediment or a blood clot in your bladder or catheter. ? Tissue near the catheter may become irritated and may bleed. How to wear your catheter and your drainage bag Supplies needed ? Adhesive tape or a leg strap. ? Alcohol wipe or soap and water (if you use tape). ? A clean towel (if you use tape). ? Overnight drainage bag. ? Smaller drainage bag (leg bag). Wearing your catheter and bag Use adhesive tape or a leg strap to attach your catheter to your leg. ? Make sure the catheter is not pulled tight. ? If a leg strap gets wet, replace it with a dry one. ? If you use adhesive tape: 1. Use an alcohol wipe or soap and water to wash off any stickiness on your skin where you had tape before. 2. Use a clean towel to pat-dry the area. 3. Apply the new tape. You should have received a large overnight drainage bag and a smaller leg bag that fits underneath clothing. ? You may wear the overnight bag at any time, but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
--- NOTE | 2024-08-28 13:02 | P.CN_ITS ---
Consult Note: HPI Data of Consult Patient: known to practice within the last 3 years Requesting Physician: Caridad Jordan NP Primary Care Provider: Ramon Ortiz MD Consult Narrative Reason for consult: f/u Narrative: Corey Orourke a pleasant 88 year old male presents for evaluation and management of low back pain with NC. Today rating pain 8/10 aching, increasing with standing and activity. Patient engaged in HEP greater than 6 weeks without benefit. Pt last seen 03/08 as he was entering into hospice, however he was placed on palliative care. pt taking naproxen 500mg BID PRN. Gabapentin 300mg TID was discontinued by palliative care due to ineffectiveness rather than increasing the dosage/frequency. Pt has noticed increase pain and weakness of back and BLE over the last few months. cc:: CC: Caridad Jordan NP Review of Systems ROS Status of ROS 10 or more systems reviewed and unremark able except as noted in history and below Musculoskeletal Reports: back pain and extremity pain PFSH PFS Medical History (Updated 08/28/24 @ 13:05 by Caridad Jordan NP) Senile dementia ?F03.90 - Unspecified dementia, unspecified severity, without behavioral disturbance, psychotic disturbance, mood disturbance, and anxiety (ICD-10) CAD (coronary artery disease), [place] coronary artery ?I25.10 - Atherosclerotic heart disease of [place] coronary artery without angina pectoris (ICD-10) Chronic heart failure with preserved ejection fraction (HFpEF) ?I50.32 - Chronic diastolic (congestive) heart failure (ICD-10) Benign essential hypertension ?I10 - Essential (primary) hypertension (ICD-10) Paroxysmal atrial fibrillation ?I48.0 - Paroxysmal atrial fibrillation (ICD-10) Type 2 diabetes mellitus with hyperglycemia ?E11.65 - Type 2 diabetes mellitus with hyperglycemia (ICD-10) Acute hyponatremia ?E87.1 - Hypo-osmolality and hyponatremia (ICD-10) Lumbar stenosis with neurogenic claudication ?M48.062 - Spinal stenosis, lumbar region with neurogenic claudication (ICD- 10) Kidney stone on right side ?N20.0 - Calculus of kidney (ICD-10) Degenerative disc disease Skin cancer ?C44.90 - Unspecified malignant neoplasm of skin, unspecified (ICD-10) Prostate cancer ?C61 - Malignant neoplasm of prostate (ICD-10) Postsurgical cardiac pacemaker in situ ?Z95.0 - Presence of cardiac pacemaker (ICD-10) Surgical History History of cholecystectomy ?Z90.49 - Acquired absence of other specified parts of digestive tract (ICD- 10) History of cataract surgery ?Z98.49 - Cataract extraction status, unspecified eye (ICD-10) History of bilateral knee replacement ?Z96.653 - Presence of artificial knee joint, bilateral (ICD-10) Family History Brother Family history of myocardial infarction Family history of hypertension Family history of diabetes mellitus Mother Family history of hypertension Family history of diabetes mellitus Sister Family history of diabetes mellitus Social History Within the past year, how often did you have a drink containing alcohol: never Score interpretation: A score less than 4 is consistent with normal alcohol consumption. Smoking status: Never smoker Non-prescribed substance use: denies use Previous occupational history: [employer] Known occupational exposures/hazards: No Highest level of school completed/degree received: high school graduate Are you now , , , , never or living with a partner: In a typical week, how many times do you talk on the telephone with family, friends, or neighbors: 3 or more times per week How often do you get together with friends or relatives: 3 or more times per week How often do you attend christianity or episcopal services: 4 or more times per year Do you belong to any clubs or organizations such as christianity groups unions, fraternal or athletic groups, or school groups: no Total score: 3 Score interpretation: A score of greater than or equal to 2 indicates the lowest level of social isolation. Feel stressed/tense/nervous/anxious/difficulty sleeping: not at all Do you think of yourself as: straight/heterosexual Gender Identity: male Meds Home Medications and Allergies Home Medications ?Medication ?Instructions ?Recorded ?Confirmed ?Type aspirin 81 mg tablet,delayed 81 mg PO DAILY 03/27/23 02/13/24 History release donepezil 10 mg tablet (Aricept) 10 mg PO DAILY 03/27/23 02/13/24 History isosorbide mononitrate 60 mg 60 mg PO DAILY 03/27/23 02/13/24 History tablet,extended release 24 hr latanoprost 0.005 % eye drops 1 drp ophthalmic (eye) DAILY 03/27/23 02/13/24 History lisinopril 20 1 tab PO DAILY 03/27/23 02/13/24 History mg-hydrochlorothiazide 25 mg tablet lovastatin 40 mg tablet 40 mg PO DAILY 03/27/23 02/13/24 History metformin 500 mg tablet 500 mg PO DAILY 03/27/23 02/13/24 History omeprazole 40 mg capsule,delayed 40 mg PO DAILY 03/27/23 02/13/24 History release tamsulosin 0.4 mg capsule 0.8 mg PO DAILY 03/27/23 02/13/24 History vitamins A,C,K-yoda-achruv 4,296 2 cap PO DAILY 03/27/23 02/13/24 History mcg-226 mg-90 mg capsule (PreserVision AREDS) acetaminophen 500 mg tablet 500 mg PO Q4H PRN pain 06/21/23 02/13/24 History (Acetaminophen Extra Strength) zinc 50 mg tablet 50 mg PO DAILY 10/13/23 02/13/24 History citalopram 10 mg tablet 10 mg PO QAM 10/17/23 02/13/24 History hydralazine 50 mg tablet 50 mg PO TID 10/17/23 02/13/24 History oxybutynin chloride 15 mg 15 mg PO QDAY 10/17/23 02/13/24 History tablet,extended release 24 hr sodium chloride 1,000 mg soluble 1,000 mg PO TID #0 tabs 10/17/23 02/13/24 Rx tablet docusate sodium 100 mg capsule mg PO 11/21/23 History fluticasone propionate 50 2 spray intranasal DAILY PRN 11/21/23 02/13/24 History mcg/actuation nasal allergy symptoms spray,suspension (Allergy Relief (fluticasone)) insulin lispro 100 unit/mL 1 sliding scale dose subcut 11/21/23 02/13/24 History subcutaneous pen (Humalog KwikPen USEASDIRECTD (U-100) Insulin) loratadine 10 mg tablet (Claritin) 10 mg PO DAILY 11/21/23 02/13/24 History polyethylene glycol 3350 17 17 g PO DAILY 11/21/23 02/13/24 History gram/dose oral powder (GentleLax) gabapentin 300 mg capsule 300 mg PO TID 01/25/24 02/13/24 History cephalexin 500 mg capsule 500 mg PO BID 10 days #20 caps 05/24/24 Rx bacitracin 500 unit/gram topical 1 applic topical Q12H #14 grams 06/14/24 Rx ointment cephalexin 500 mg capsule 500 mg PO Q8H 7 days #21 caps 06/14/24 Rx Allergies Allergy/AdvReac Type Severity Reaction Status Date / Time No Known Drug Allergies Allergy Verified 06/14/24 11:42 Exam Narrative Exam Narrative: Nurses notes and vital signs reviewed and patient is not hypoxic. General: Well-appearing and in no apparent distress. Skin: Warm, dry, no pallor noted. No rash. Head: Normocephalic, atraumatic. Neck: Supple, non-tender. Eye: Pupils are equal, round and EOMI. No scleral icterus. Ears, Nose, Mouth, and Throat: TM are clear, no nasal mucosal hypertrophy. Oral mucosa is moist, no posterior oropharynx erythema, uvula is mid-line Cardiovascular: Regular Rate and Rhythm without murmur, gallop or rub. Respiratory: No accessory muscle use or respiratory distress. Lungs are clear to auscultation, no wheezing, rales or rhonchi Chest Wall: no tenderness Back: No midline thoracic or lumbar vertebral tenderness. No CVA tenderness Musculoskeletal: normal ROM, no calf or popliteal tenderness, no lower extremity edema/swelling GI: Abdomen is soft, non-distended. Normal bowel sounds. No masses appreciated. No tenderness to palpation. No rebound, guarding, or rigidity noted. On the buttock area the patient have a an area of ulcer almost 3 x 5 cm The ulcer is stage II and there is mild erythema no surrounding induration no fluctuation no bulging Perineal examination showed that the patient have mild irritation to the opening of the penis, where the Blank catheter is inserted and there is no redness no ho tness no signs of induration or infection No tenderness upon palpation of the scrotum as well as no lesions Constitutional Documenting provider has reviewed patient's vital signs: yes Common normals: no apparent distress, oriented x3, healthy appearing, alert and well nourished General appearance: cooperative HENNM Common normals: normocephalic, hearing grossly normal bilaterally and moist oral mucous membranes Head and scalp: normocephalic Eye Common normals: PERRL Pupil: PERRL Neck & C-Spine Common normals: full ROM General: normal visual inspection Chest Common normals: inspection of chest normal Respiratory Common normals: normal respiratory effort, no retractions and no use of accessory muscles Back & Pelvis Lumbar spine/lower back: ROM limited, pain with ROM, straight leg raise positive right and straight leg raise positive left Other: decreased sensation bilateral l4,5,s1 strength 4/5 in BLE positive facet loading Extremity Common normals: normal to inspection Neuro Common normals: oriented x3, CN's II-XII intact bilaterally, moves all extremities, no focal motor deficits, no sensory deficits noted and deep tendon reflexes 2+ bilaterally Sensorium/orientation: alert Gait (neuro): assistive device used (wheelchair) Motor exam: strength abnormal Psych Common normals: mental status grossly normal, thought process normal, cooperative, affect normal, speech normal and activity/motor behavior normal Speech: normal speech Thought process: normal thought process Results Additional Findings Additional findings: If on a controlled substance or opioids, I have checked an [place] report on this patient and there are no aberrancies noted in the prescribing history.??If on a controlled substance or opioid a drug screen was completed and reviewed within the last year, and if there has not been a drug screen completed we ordered one today to monitor higher risk, state monitored pain medication use. As part of providing excellent, safe, comprehensive care, the following was completed at our patient's visit: 1. A medication reconciliation and review to ensure accurate knowledge of current/active medications, including asking our patients to inform us about any dnkx-nqx-glrrxoe medications or herbal remedies/nutritional supplements/alternative remedies. 2. A review to specifically ensure our patients have had annual screening for screening for depression, screening for tobacco use, and screening for unhealthy alcohol use. For concerning screenings had a discussion with the patient, provi ded patient education, and recommended follow-up with primary care provider when appropriate. If patient noted with a risk of falling, they received education on strength, gait, and balance training to prevent future risk of falling. Assessment and Plan Assessment and Plan (1) Lumbar stenosis with neurogenic claudication: (2) Encounter for medication monitoring: (3) Lumbar spondylosis: Plan bilateral L4-5 TFESI for lumbar stenosis with NC, under fluoroscopy risks vs benefits reviewed restart gabapentin 300mg TID as tolerated, goal to increase next visit if needed UDS today for medication monitoring consider PRN opioid next visit, palliative care will not prescribe. pt is not on hospice continue HEP as tolerated, upcoming PT consult for generalized weakness f/u 2 weeks after injection
== END 2024-08-28 12:21 | disposition home or self-care (01) ==
PROVIDERS: PCP Family Medicine; Visit Provider Nurse Practitioner
DX: M48.062 Spinal stenosis, lumbar region with neurogenic claudication (principal); Z51.81 Encounter for therapeutic drug level monitoring; M47.816 Spondylosis without myelopathy or radiculopathy, lumbar region
CPT/HCPCS: G0463

== ENCOUNTER 2024-09-02 10:49 | Day surgery (SDC) | payer MEDICARE, OTHER, SELFPAY ==
[2024-09-02 11:41] VITALS: BP 137/78; PULSE 75; TEMP 36.3; O2SAT 98
[2024-09-02 11:51] LABS: Glucometer 125 mg/dL (74-106)
[2024-09-02] MEDS: 0.9 % SODIUM CHLORIDE 10 ML SYRINGE - SALINE FLUSH INJ (12:29)
[2024-09-02] MEDS: BUPIVACAINE HCL 0.25% PF 25 MG/10 ML VIAL INJ (12:29)
[2024-09-02] MEDS: IOHEXOL 240 MG/ML - 10 ML VIAL INJ (12:30)
[2024-09-02] MEDS: TRIAMCINOLONE ACETONIDE 40 MG/ML VIAL 80 MG INJ (12:30)
[2024-09-02 12:32] VITALS: BP 150/69; BP 156/72; PULSE 75; O2SAT 98
--- NOTE | 2024-09-02 12:33 | W.PM.PROCNOT ---
Date of procedure: 09/02/24 Pre-op diagnosis: Pain due to lumbar stenosis with neurogenic claudication Post-op diagnosis: same as pre-op Procedure: Procedure: Bilateral L4-5 transforaminal epidural steroid injection Medications: Bupivacaine 0.25% 2cc, lidocaine 2% 1cc, kenalog 80mg The patient was seen and examined in the preoperative holding area.? Informed consent was obtained and placed on the chart.? Patient was brought to the medical procedure unit and placed in the prone position where a timeout was completed verifying the correct patient, procedure site, position, and planned special equipment using sterile aseptic technique.? Under direct fluoroscopic visualization a 25-gauge Quincke tipped spinal needle was advanced at level left L4-5 to the designated neural foramen where contrast dye was injected to show adequate spread.? There was no evidence of vascular or adverse uptake.? Epidural spread was appreciated.? The above-mentioned injectate was then placed in a 1.5 mL aliquot preceded by negative aspiration.? The needle was removed. The same procedure, at the same level, was completed on the opposite side. ? Patient was taken to the postprocedural recovery area and monitored for an appropriate length of time before found suitable for discharge in the accompaniment of a responsible adult. Anesthesia: Local Surgeon: Soy Turpin Pathology: none sent Condition: stable Disposition: no change
== END 2024-09-02 12:45 | disposition home or self-care (01) ==
LOC: SURGOUT 10:50
PROVIDERS: PCP Family Medicine; Visit Provider Anesthesiology
DX: M48.062 Spinal stenosis, lumbar region with neurogenic claudication (principal); E11.9 Type 2 diabetes mellitus without complications; Z79.84 Long term (current) use of oral hypoglycemic drugs
CPT/HCPCS: 36415; 64483; 82948; J0665; J3301; Q9966

== ENCOUNTER 2024-10-15 11:19 | Emergency (ER) | payer MEDICARE, OTHER, SELFPAY ==
[2024-10-15 11:28] VITALS: BP 181/87; PULSE 76; O2SAT 94; BMI 26.8
--- OUTSIDE RECORDS SUMMARY | 2024-10-15 11:31 | XMS_ITS | CCD ---
Author Organization [facility] Care Team Providers Care Health Care Liaison Name Role Phone PHYSICIAN, DEFAULT Unavailable Unavailable PHYSICIAN, DEFAULT Unavailable Unavailable SNEHA, DARRIN Unavailable Unavailable PHYSICIAN, DEFAULT Unavailable Unavailable PHYSICIAN, DEFAULT Unavailable Unavailable SNEHA, DARRIN Unavailable Unavailable UNKNOWN, PROVIDER Unavailable Unavailable UNKNOWN, PROVIDER Unavailable Unavailable SNEHA, DARRIN Unavailable Unavailable RAMON MARTINES Unavailable Unavailable ISAI Campo Attending Provider [phone] Sanaz Campo Unavailable DO Jose Eduardo Murray Attending Provider MD Ramon Martines Primary Care Provider [phone] BOBBI, DR RAMON Chen Primary Care Unavailable [...] Care Unavailable Sanaz Campo Admitting Unavailable Sanaz aCmpo Attending Unavailable Jose Eduardo Murray Attending Unavailabl e Ramon Martines Primary Care Unavailable Jose Eduardo Murray Admitting Unavailteodora e Bobib, Ramon Admitting Unavailable Ramon Martines Primary Care Unavailable Bobbi, Ramon Attending Unavailable RAMON MARTINES Primary Care Physician HARRY, MIKE Attending Unavailable HARRY, MIKE Referring [...] Unavailable Naderer Ramon STEPHENSON Primary Care Provider [phone] RAMON MARTINES Attending Unavailable BOBBI, RAMON Attending Unavailable BOBBI, RAMON Attending Unavailable Soy Turpni MD Attending Unavailable BUTLER, Deven Zimmeramn Attending Unavailable SEKOU, LUKAS Velásquez Attending Unavailable Orzech, Yi Alfonso Attending Unavailable BUTLER, Deven Zimmerman Attending Unavailable BUTLER, Deven R Attending Unavailable SEKOU, LUKAS Velásquez Attending Unavailable Orzech, Yi X Attending Unavailable Orzech, Yi X Attending Unavailable Allergies Allergy Classification Reported Allergen(s) Allergy Type Date of Onset Reaction(s) Facility (1 source) [address]5045,00 Drug allergy (disorder) 11-15-2010 [facility] Repository Medications Current Medications Medication Drug Class(es) Dates Sig (Normalized) Sig (Original) aspirin 81 mg delayed release oral tablet (16 sources) Platelet Aggregation Inhibitor, Nonsteroidal Anti-inflammatory Drug Start: 05-31-2024 take 1 tablet by mouth once daily aspirin 81 mg Oral EC Tab 81 mg = 1 tab(s), Oral, Daily, Refills(s) 0 Start Date: 05/31/24 Status: Ordered Aspirin 81 Activ e citalopram 10 mg oral tablet (17 sources) Serotonin Reuptake Inhibitor Start: 12-01-2023 citalopram 10 mg Tab Refills(s) 0 Start Date: 12/01/23 Status: Ordered docusate sodium 100 mg oral capsule (12 sources) Start: 11-02-2023 End: 06-04-2024 take 1 capsule by mouth twice daily as needed for constipation docusate sodium 100 mg Cap 100 mg = 1 cap(s), Oral, BID, PRN for constipation, # 20 cap(s), Refills(s) 0 Start Date: 12/01/23 Status: Ordered donepezil hydrochloride 10 mg oral tablet (16 sources) Start: 01-08-2024 donepezil 10 mg Tab 10 mg = 1 tab(s), Refills(s) 0 Start Date: 05/31/24 Status: Ordered Donepezil HCl Ac tive Flonase (2 sources) Corticosteroid Start: 12-01-2023 Flonase mcg, D aily, Refill(s) 0 Start Date: 12/01/23 Status: Ordered gabapentin 300 mg oral capsule (10 sources) Anti-epileptic Agent Start: 12-01-2023 gabapenti n 300 mg Cap Refills(s) 0 Start Date: 12/01/23 Status: Ordered Start: 07-19-2023 take 1 capsule by mo [facility] in the morning gabapentin (Neurontin) 100 MG capsule Take 100 mg by mouth in the morning and 100 mg before bedtime. 07/19/2023 Active hydrALAZINE hydrochloride 50 mg oral tablet (20 sources) Arteriolar Vasodilator Start: 07-19-2024 take 1 tablet by mouth three times daily hydrALAZINE (Apresoline) 50 MG tablet Indications: Essential (primary) hypertension (CMS/HCC) TAKE 1 TABLET BY MOUTH THREE TIMES DAILY 90 tablet 5 07/19/2024 Active Start: 01-30-2024 take 1 tablet by kayla th three times daily hydrALAZINE (Apresoline) 50 MG tablet Indications: Essential (primary) hypertension (CMS/HCC) TAKE 1 TABLET BY MOUTH THREE TIMES DAILY 90 tablet 5 01/30/2024 Active Start: 12-01-2023 take 1 mg by mouth f our times daily hydrALAZINE 25 mg Tab mg tab(s), Oral, QID, Refills(s) 0 Start Date: 12/01/23 Status: Ordered hydroCHLOROthiazide 25 mg / lisinopril 20 mg oral tablet (18 sources) Thiazide Diuretic, Angiotensin Converting Enzyme Inhibitor Start: 12-01-2023 hydrochlorothiazide-lisinopr il 25 mg-20 mg Tab Refill(s) 0 Start Date: 12/01/23 Status: Ordered Start: 11-02-2023 take 1 tablet by kayla th once daily lisinopril-hydroCHLOROthiazide 20-25 MG tablet Indications: Type 2 diabetes mellitus without complications (CMS/HCC) TAKE 1 TABLET BY MOUTH DAILY 90 tablet 3 11/02/2023 Active Lisinopril-hydro CHLOROthiazide Active hydrOXYzine hydrochloride 25 mg oral tablet (9 sources) Antihistamine Start: 08-05-2024 take 1 tablet by mouth four times daily as needed for anxiety hydrOXYzine HCl (Atarax) 25 MG tablet Indications: Generalized anxiety disorder (CMS/HCC) TAKE 1 TABLET BY MOUTH FOUR TIMES DAILY NEEDED FOR ANXIETY or FOR ITCHING 60 tablet 2 08/05/2024 Active Start: 06-04-2024 take 1 tablet by kayla th four times daily as needed for anxiety hydrOXYzine HCl (Atarax) 25 MG tablet Indications: Generalized anxiety disorder (CMS/HCC) Take 1 tablet (25 mg) by mouth 4 (four) times a day as needed for anxiety or itching 60 tablet 2 06/04/2024 Active Start: 03-16-2024 End: 06-04-2024 take 1 tablet by mouth every six hours as needed hydrOXYzine HCl (Atarax) 25 MG tablet Take 25 mg by mouth every 6 (six) hours if needed 03/16/2024 06/04/2024 Discontinued (Reorder) 24 hr isosorbide mononitrate 60 mg extended release oral tablet (18 sources) Nitrate Vasodilator Start: 05-05-2023 isosorbide mononitrate 60 mg ER Tab Refills(s) 0 Start Date: 12/01/23 Status: Ordered Isosorbide Annada itrate ER Active latanoprost (10 sources) Prostaglandin Analog Start: 12-01-[address] ophthalmic qPM, Refill(s) 0 Start Date: 12/01/23 Status: Ordered Latanoprost Acti ve Claritin (9 sources) Start: 12-01-2023 Claritin Daily , Refills(s) 0 Start Date: 12/01/23 Status: Ordered lovastatin 40 mg oral tablet (18 sources) HMG-CoA Reductase Inhibitor Start: 12-01-2023 lovastatin 40 mg Tab Refills(s) 0 Start Date: 12/01/23 Status: Ordered Lovastatin Activ e 24 hr metFORMIN hydrochloride 500 mg extended release oral tablet (18 sources) Biguanide Start: 12-13-2023 take 2 tablets by mouth every twenty-four hours in the morning metFORMIN XR (Glucophage-XR) 500 MG 24 hr tablet Indications: Type 2 diabetes mellitus with hyperglycemia, without long-term current use of insulin (CMS/[facility]) Take 2 tablets (1,000 mg) by mouth [...] (1 source) Azole Antifungal Start: 4 End: 4 miconazole topical 2% powder 1 ada, Topical, BID for 7 day(s), 85 gm, Refill(s) 0, [facility], 177, cm, 05/31/24 10:47:00 EDT, Height/Length Dosing, 84, kg, 05/31/24 10:47:00 EDT, Weight Dosing Start Date: 08/13/24 Stop Date: 08/20/24 Status: Ordered naproxen 500 mg oral tablet (9 sources) Nonsteroidal Anti-inflammatory Drug take 1 tablet by mouth in the morning naproxen (Naprosyn) 500 MG tablet Take 500 mg by mouth in the morning. Active Naproxen Active omeprazole 40 mg delayed release oral capsule (10 sources) Proton Pump Inhibitor Start: 08-15-2022 take 1 capsule by mouth in the morning omeprazole (PriLOSEC) [address] capsule Take 40 mg by mouth in the morning. 08/15/2022 Active 24 hr oxybutynin chloride 10 mg extended release oral tablet (18 sources) Cholinergic Muscarinic Antagonist Start: 01-30-2024 take 2 tablets by mouth once daily oxybutynin 10 mg ER Tab 20 mg = 2 tab(s), Oral, Daily, # 60 tab(s), Refills(s) 11, Pharmacy: [facility], 177, cm, 01/30/24 11:11:00 EDT, Height/Length [...] morning. 30 tablet 5 09/14/2023 Active Miralax (17 sources) Osmotic Laxative Start: 12-01-2023 take 1 g by mouth once daily MiraLax gm, Oral, Daily, Refill(s) 0 Start Date: 12/01/23 Status: Ordered Start: 09-16-2022 polyethylene g lycol, PEG, 3350 (Glycolax) 17 GM/SCOOP powder mix 1 (ONE) capful in EIGHT ounces OF liquid and drink DAILY 09/16/2022 Active PreserVision AREDS (1 source) PreserVision ARE DS Active sennosides, prison 8.6 mg oral capsule (9 sources) Start: 03-12-2024 End: 06-04-2024 take 1 capsule by mouth once daily Sennosides (Senna) 8.6 MG capsule Indications: Chronic constipation Take 1 capsule by mouth Daily 30 capsule 5 06/04/2024 Active sodium chloride 1000 mg oral tablet (17 sources) Start: 04-19-2024 End: 04-19-2025 take 1 [...] Ordered tamsulosin hydrochloride 0.4 mg oral capsule (18 sources) alpha-Adrenergic Chandler Start: 07-19-2024 take 2 capsules by mouth once daily tamsulosin (Flomax) 0.4 MG 24 hr capsule Indications: Benign prostatic hyperplasia with lower urinary tract symptoms TAKE 2 CAPSULES BY MOUTH DAILY 180 capsule 1 07/19/2024 Active Start: 12-01-2023 take 1 capsule by mo uth twice daily tamsulosin 0.4 mg Cap 0.4 mg = 1 cap(s), Oral, BID, Refills(s) 0 Start Date: 12/01/23 Status: Ordered Start: 12-01-2023 take 2 capsules by m outh once daily tamsulosin (Flomax) 0.4 MG 24 hr capsule Indications: Benign prostatic hyperplasia with lower urinary tract symptoms TAKE 2 CAPSULES BY MOUTH DAILY 180 capsule 1 01/23/2024 Active Tamsulosin HCl A ctive Wrist Brace - (1 source) Start: 09-05-2022 Wrist Brace - as directed Aug, Active Zinc (9 sources) Start: 12-01-2023 take 1 mg by mouth o nce daily Zinc mg, Oral, Daily, Refills(s) 0 Start Date: 12/01/23 Status: Ordered Completed/Discontinued Medications Medication Drug Class(es) Dates Sig (Normalized) Sig (Original) cefdinir 300 mg oral capsule (2 sources) Cephalosporin Antibacterial Start: 05-24-2024 End: 06-04-2024 take 1 capsule by mouth in the morning cefdinir (Omnicef) 300 MG capsule Indications: Urinary tract infection without hematuria, site unspecified Take 1 capsule (300 mg) by mouth in the morning and 1 capsule (300 mg) before bedtime. Do all this for 10 days. 20 capsule 05/24/2024 06/04/2024 Discontinued ciprofloxacin 250 mg oral tablet (4 sources) Quinolone Antimicrobial Start: 12-01-2023 End: 06-04-2024 Cipro 250 MG tablet Take 250 mg by mouth 12/01/2023 06/04/2024 Discontinued Problems Active Problems Problem Classification Problem Date Documented Da te Episodic/Chronic Anxiety disorders (10 sources) Generalized anxiety disorder; Translations: [Generalized anxiety disorder] Onset: 12-13-2023 12-13-2023 Chronic Cancer of prostate (12 sources) Personal history of malignant neoplasm of prostate; Translations: [History of malignant neoplasm of prostate] Onset: 12-01-2023 Episodic Cardiac dysrhythmias (11 sources) Unspecified atrial fibrillation; Translations: [Sick sinus syndrome] Onset: 05-29-2018 Chronic Chronic kidney disease (12 sources) Chronic kidney disease stage 3A ; [...] Onset: 10-11-2023 Chronic Congestive heart failure; nonhypertensive (10 sources) Chronic diastolic heart failure; Translations: [Chronic diastolic (congestive) heart failure] Onset: 12-13-2023 12-13-2023 Chronic Coronary atherosclerosis and other heart disease (12 sources) Atherosclerotic heart disease of [place] coronary artery with unstable angina pectoris; Translations: [Coronary atherosclerosis] Onset: 05-29-2018 12-13-2023 Chronic Delirium, dementia, and amnestic and other cognitive disorders (12 sources) Alzheimer's disease with late onset; Translations: [Senile dementia] Onset: 12-21-2022 Chronic Diabetes mellitus with complications (18 sources) Type 2 diabetes mellitus with hyperglycemia; Translations: [Hyperglycemia due to type 2 diabetes mellitus] Onset: 09-26-2022 Chronic Diabetes mellitus without complication (11 sources) Type 2 diabetes mellitus without complications; Translations: [Diabetes mellitus] Onset: 05-29-2018 03-02-2020 Chronic Disorders of lipid metabolism (10 sources) Hyperlipidemia, unspecified; Translations: [Dyslipidemia] Onset: 05-29-2018 12-13-2023 Chronic Esophageal disorders (10 sources) Gastro-esophageal reflux disease without esophagitis; Translations: [Gastroesophageal reflux disease] Onset: 05-29-2018 12-13-2023 Chronic Essential hypertension (16 sources) Essential (primary) hypertension; Translations: [Benign essential hypertension] Onset: 05-29-2018 Chronic Genitourinary symptoms and ill-defined conditions (13 sources) Incontinence without sensory awareness; Translations: [Incontinence without sensory awareness] Onset: 12-01-2023 Chronic Genitourinary symptoms and ill-defined conditions (20 sources) History of urinary tract infection; Translations: [Personal history of urinary (tract) infections] Onset: 12-01-2023 Episodic Glaucoma (17 sources) Glaucoma; Translations: [Unspecified glaucoma] Onset: 12-13-2023 03-02-2020 Chronic Hyperplasia of prostate (20 sources) Benign prostatic hypertrophy with outflow obstruction; Translations: [Benign prostatic hyperplasia with lower urinary tract symptoms] Onset: 12-01-2023 Chronic Mood disorders (8 sources) Moderate recurrent major depression; Translations: [Major depressive disorder, recurrent, moderate] Onset: 12-13-2023 12-13-2023 Chronic Osteoarthritis (9 sources) Arthritis 03-02-2020 Chronic Other aftercare (1 source) remote computer terminal operator (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) use of antithrombotics/antip latelets; Translations: [FILTERER (CURRENT) USE OF ANTITHROMBOTICS/ANTIP LATELETS] Onset: 05-29-2018 Episodic Other aftercare (2 sources) residential (current) use of aspirin; Translations: [HALF-WAY (CURRENT) USE OF ASPIRIN] Onset: 05-29-2018 Episodic Other aftercare (1 source) Other correction (current) drug therapy; Translations: [OTH FILTERER CURRENT DRUG THERAPY] Onset: 12-28-2022 Episodic Other aftercare (1 source) residential (current) use of oral hypoglycemic drugs; Translations: [HALF-WAY USE ORAL HYPOGLYCEMIC DX] Onset: 12-28-2022 Episodic Other and ill-defined heart disease (9 sources) Heart disease 03-02-2020 Chronic Other diseases of bladder and urethra (3 sources) Detrusor overactivity; Translations: [Overactive bladder] Onset: 12-01-2023 Chronic Other diseases of bladder and urethra (9 sources) Overactive bladder 12-01-2023 Chronic Other diseases of kidney and ureters (1 source) Urinary tract obstruction; Translations: [Other obstructive and reflux uropathy] Onset: 08-12-2024 Episodic Other ear and sense organ disorders (9 sources) Hearing loss 03-02-2020 Chronic Other gastrointestinal disorders (9 sources) Chronic constipation; Translations: [Other constipation] Onset: 06-04-2024 06-04-2024 Episodic Other injuries and conditions due to external causes (1 source) Unspecified injury of left wrist, hand and finger(s), initial encounter Episodic Other male genital disorders (9 sources) Impotence 03-02-2020 Chronic Other nervous system disorders (1 source) Unsteadiness on feet; Translations: [UNSTEADINESS ON FEET] Onset: 12-06-2022 Episodic Other upper respiratory disease (8 sources) Allergic rhinitis due to pollen; Translations: [Allergic rhinitis due to pollen] Onset: 12-13-2023 12-13-2023 Chronic Screening or history of mental health and substance abuse (1 source) Personal history of nicotine dependence; Translations: [PERSONAL HISTORY OF NICOTINE DEPENDENCE] Onset: 05-29-2018 Episodic Spondylosis; intervertebral disc disorders; other back problems (15 sources) Spondylosis without myelopathy or radiculopathy, lumbar region; Translations: [Lumbar spondylosis] Onset: 12-06-2022 Chronic Sprains and strains (1 source) Unspecified sprain of left wrist, initial encounter Episodic Unclassified (2 sources) Unknown / UNK(Unknown) Onset: 05-29-2018 Unclassified (1 source) residential (current) use of oral hypoglycemic drugs; Translations: [HALF-WAY (CURRENT) USE OF ORAL HYPOGLYCEMIC DRUGS] Onset: 05-29-2018 Unclassified (1 source) Alzheimer's disease with late onset; Translations: [Alzheimer's disease with late onset] Onset: 01-06-2023 Unclassified (1 source) Unspecified injury of left wrist, hand and finger(s), initial encounter; Translations: [Unspecified injury of left wrist, hand and finger(s), initial encounter] Onset: 09-05-2022 Unclassified (9 sources) Drug therapy finding 03-02-2020 Past or Other Problems Problem Classification Problem Date Documented Da te Episodic/Chronic Cardiac dysrhythmias (3 sources) Bradycardia, unspecified; Translations: [BRADYCARDIA UNSPECIFIED] Onset: 12-28-2022 Episodic Fluid and electrolyte disorders (8 sources) Hyponatremia; Translations: [Hypo-osmolality and hyponatremia] Onset: 12-25-2023 12-25-2023 Episodic Mood disorders (2 sources) Mood disorders Onset: 08-13-2024 08-13-2024 Other aftercare (3 sources) Long-term current use of drug therapy; Translations: [Other correction (current) drug therapy] Onset: 12-13-2023 12-13-2023 Episodic Other aftercare (7 sources) Patient encounter status; Translations: [Other emt intermediate (current) drug therapy] Onset: 12-13-2023 12-13-2023 Episodic [...] 11:00 AM EST Where: [facility] [address] [place] [address] [place] [address]- Medications What How Much When Instructions New miconazole topical (miconazole topical 2% powder) 1 Application Topical 2 times a day Duration: 7 Days Pickup at [facility] Unchanged aspirin (aspirin 81 mg Oral [...] (Zinc) By Mouth Every day Pharmacy Information [facility]: [address] [place], [place] [id number] [phone] Allergies No Known Allergies Problems Ongoing - [...] for choosing us for your care. Normal [facility] Ambulatory Visit Summaryon 1 Ambulatory Visit Summary [...] 11:00 AM EDT Where: [facility] [place] [id number]- Medications What How Much When Instructions Unchanged [...] you for choosing us for your care. [facility] Ambulatory Visit Summaryon 0 06-21-2024 Ambulatory Visit Summary Ambulatory Visit Summary EDWIN OROURKE :1935 Visit Date:06/21/2024 Ambulatory Visit Instructions Your Care Team Attending Physician - MÓNICA STEPHENSON, Deven Zimmerman Primary Care Physician - BOBBI STEPHENSON, RAMON This Is Your Medications List aspirin (aspirin [...] 11:00 AM EDT Where: [facility] [address] [place] [address]- Medications What How Much When Instructions Unchanged [...] for choosing us for your care. Normal [facility] ALL BASIC METABOLIC PANELon 06-04-2024 Anion gap [Moles/Vol] 8.5 mmol/L [facility] Calcium [Mass/Vol] 9.0 mg/dL 8.5 - 10.1 mg/dL [facility] Chloride [Moles/Vol] 92 mmol/L Low 98 - 107 mmol/L [facility] CO2 [Moles/Vol] 33.6 mmol/L High 21.0 - 32.0 mmol/L [facility] Creatinine [Mass/Vol] 1.23 mg/dL 0.70 - 1.30 mg/dL [facility] GFR/1.73 sq M.predicted CKD-EPI (S/P/Bld) [Vol rate/Area] >60 60 - PINF [facility] Glucose [Mass/Vol] 107 mg/dL High 74 - 106 mg/dL [facility] Interpretation and review of laboratory results Abnormal [facility] Potassium [Moles/Vol] 4.1 mmol/L 3.5 - 5.1 mmol/L [facility] Sodium [Moles/Vol] 130 mmol/L Low 136 - 145 mmol/L [facility] TBH EGFR-NON AF ECUADOREAN 56 Low 60 - PINF [facility] Urea nitrogen [Mass/Vol] 17.0 mg/dL 7.0 - 18.0 mg/dL [facility] Urea nitrogen/Creatin ine [Mass ratio] 13.8 mg/mg [facility] C Urineon 06-02-2024 Bacteria identified Cx [facility] (U) Microbiology PROCEDURE: Urine Culture [R1] SOURCE: [...] test was performed at: [facility], [address] [place] [address], [id number] , [place], [facility] Comment on above: Performed By: #### [id number] #### [facility] [address] [place] [address] Urology Office/Clinic Noteon 05-31-2024 Urology Office/Clinic Note Urology Office/Clinic Note Chief Complaint Severe incontinence pt wears a condom catheter [facility] Staff 4 month f/u to cysto/uros done 01/30/24. Last seen IO 12/01/23. Dx: hx of prostate cancer *Brachytherapy ~20yrs ago*, incontinence wo sensory awareness OAB, BPH wiht obstruction, hx of UTI. *Tamsulosin 0.8mg BID and increased Oxybutynin ER 20mg qd May 24 pt had blood in his urine and was taken to the [facility] ED and was started on Cefdinir 300mg [...] Bladder: condom catheter. Assessment/Plan Residing at [facility]. Pt accompanied by . 1. Gross hematuria (R31.0: Gross hematuria) Pt presented to [facility] ER 05/24/24 with gross hematuria. Started on [...] urination, but after he went to [facility] on 10/17/23 the catheter was removed within a week of being there due to his urine having pus and thought he needed treatment for UTI. Treated with antibiotic but does not know which one. reports pt has back issues. States the reason he is at [facility] is due to the inability to walk. [...] When Contact Information Deven BUTLER MD, URL [address] [place] [address]- Additional Instructions: Catheter change in 4 weeks Patient Education Indwelling Urinary Catheter Care, Adult I, Shena Taylor, personally scribed for (more content not included)... [facility] Comment on above: Result Comment: Electronically Signed By : Deven BUTLER MD\.br\Date and Time Signed: 05/31/24 11:13 EDT\.br\Electronically Co-Signed By: Shena Taylor\.br\Date and Time Co-Signed: 05/31/24 11:02 EDT\.br\Electronically Co-Signed By: Shena Taylor\.br\Date and Time Co-Signed: 05/31/24 11:07 EDT Office Visiton 04-02-2024 Follow-up visit [id number] Edwin Orourke 1935 Date Provider Department Center 04/02/2024 Jose Juan-MIKE HILARIO [facility] No family history on file Level of Service:[id number] [place] OFFICE/OUTPATIENT ESTABLISHED LOW MDM 20 MIN Normal [facility] Consent for Procedure/Surger yon 01-30-2024 Consent for Procedure/Surger y [id number]#1.00TIFF [facility] Consent for Treatmenton 01-14 Consent for Treatment [id number]#1.00TIFF [facility] IntraOperative Documentson 0 01-30-2024 IntraOperative Documents [id number]#1.00TIFF [facility] IntraOperative Documents [id number]#1.00TIFF [facility] Main OR Intraoperative Recor don 01-30-2024 Main OR Intraoperative Record IntraOp Document Type FTURO Summary Primary Physician: Deven BUTLER MD Finalized Date/Time: 01/30/24 11:23:13 Pt. Name: EDWIN OROURKE /Sex: 1935 Male Med Rec #: [id number] Physician: Deven BUTLER MD Financial #: [id number] Pt. Type: O Room/Bed: / Admit/Disch: 01/30/24 [...] Priscilla Enciso Role Performed Surgeon - Primary Air Carrier Operations Inspector - Primary Scrub - Primary Time In 01/30/24 11:17:00 01/30/24 11:17:00 01/30/24 11:17:00 Time Out 01/30/24 11:29:00 01/30/24 11:29:00 01/30/24 11:29:00 Procedure CYSTOSCOPY LOCAL(.) CYSTOSCOPY LOCAL(.) CYSTOSCOPY LOCAL(.) Comments Last Modified By: Sweta RN, CNOR, Sweta RN, TIFFANYOR, Sweta MIZRA, TIFFANYOR, Zaria 01/30/24 Zaria 01/30/24 Zaria 01/30/24 11:22:59 11:22:59 11:22:59 Surgical Procedures FTURO Entry 1 Procedure Description Procedure CYSTOSCOPY LOCAL Modifiers . Surgeon Description CYSTO Primary Procedure Yes Primary Surgeon Deven BUTLER MD Start 01/30/24 11:19:00 Stop 01/30/24 11:24:00 Anesthesia Type Local Surgical Service Urology Wound Class 2 - Clean-Contaminated Last Modified By: Sweta MIRZA, TIFFANYOR, Zaria 01/30/24 11:23:00 General Case Data FTURO Pre-Care [...] Out Deven BUTLER MD, Verified (If Participants MARKEL Sol RN, Applicable) Sumit Enciso LPN, Jessica D Time [...] MARKEL Sol RN, Ruthann 01/30/24 11:23 Normal [facility] Main OR Preoperative Recordo n 01-30-2024 Main OR Preoperative Record Holding Area Document Type FTURO Summary Primary Physician: Deven BUTLER MD Finalized Date/Time: 01/30/24 11:20:16 Pt. Name: EDWIN OROURKE Elsie Henning/Sex: 1935 Male Med Rec #: [id number] Physician: Deven BUTLER MD Financial #: [id number] Pt. Type: O Room/Bed: / Admit/Disch: 01/30/24 [...] 11:11 Jaylene Castillo RN 01/30/24 11:20 Normal [facility] Operative Reporton Operative Report Patient: EDWIN [...] oxybutynin ER to 20 mg daily. Normal [facility] Comment on above: Result Comment: Electronically Signed By : Deven BUTLER MD\.br\Date and Time Signed: 01/30/24 11:30 EDT Outpatient Surgery Discharge Instructionon 01-30-2024 Outpatient Surgery Discharge Instruction [id number]#1.00TIFF Normal [facility] Progress Note-Physicianon Progress Note-Physician Patient: EDWIN OROURKE Age: 89 years Sex: Male : 1935 Associated Diagnoses: None Author: Deven BUTLER MD this gentleman has urinary urge incontinence and [...] list: All Problems Arthritis / SNOMED CT 4293694 / Confirmed History of prostate cancer / SNOMED CT 9973805759 / Confirmed Deafness / SNOMED CT 63670855 / Confirmed Diabetes / SNOMED CT 968251530 / Confirmed Glaucoma / SNOMED CT 59927027 / Confirmed Heart disease / SNOMED CT 28285626 / Confirmed Erectile dysfunction / SNOMED CT 2817591654 / Confirmed 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 Family History: Procedure history: Appendectomy (858320224). CE - Cataract extraction (6445918551). Placement of stent in cardiac conduit (2657483366). Arthroplasty of knee bilateral (23118020). Implantation of radioactive seed into prostate (1070929754). Social History Social & Psychosocial Habits Alcohol [...] We will reevaluate in 4 months. Normal [facility] Comment on above: Result Comment: Electronically Signed By : Deven BUTLER MD\.br\Date and Time Signed: 01/30/24 11:35 EDT Office Visiton 12-26-2023 Follow-up visit [id number] Edwin Orourke 1935 M Date Provider Department Center 12/26/2023 [facility] HILARIO [facility] No family history on file Level of Service:12750 [place] OFFICE/OUTPATIENT ESTABLISHED LOW MDM 20 MIN Normal [facility] Ambulatory Visit Summaryon 0 12-01-2023 Ambulatory Visit Summary EDWIN OROURKE :1935 Visit Date:12/01/2023 Ambulatory Visit Instructions Your Diagnosis History of prostate cancer Incontinence without sensory awareness OAB (overactive bladder) BPH with urinary obstruction History of UTI Your Care Team Attending Physician - Deven BUTLER MD Primary Care Physician - RAMON MARITNES MD This Is Your Medications List Contact [...] MÓNICA STEPHENSON, ANA MARIA Briscoe When: Where: [address] [place] [address]- Medications What How Much When Instructions Unchanged [...] uterus. ? (more content not included)... Normal [facility] Half-Way Recordson 12-01 Half-Way Records [id number]#1.00TIFF [facility] Home Records [id number]#1.00TIFF [facility] Patient Educationon 12-01-19 24 Patient Education Urology [...] stimulation). ? For women, using a medical clinic manager to prevent urine leaks. This is a [...] urine. ? (more content not included)... Normal [facility] Urology Office/Clinic Noteon 12-01-2023 Urology Office/Clinic [...] urination but after he went to the [facility] on 10/17/23 the catheter was removed within [...] here with his today. Residing at [facility]. 1. History of prostate cancer (Z85.46: Personal history of malignant neoplasm of prostate) PSA: 02/06/20 - <0.05 Latest PSA on file. S/p brachytherapy approx. 20 years ago. 2. 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 [place] staff has been providing pt with laxatives. reports pt has back issues. States the reason he is at [facility] is due to the inability to walk. [...] Contact Information MÓNICA STEPHENSON, Deven Zimmerman, [address] [place] [address]- Additional Instructions: Scheduling cysto and uro's Patient Education Urinary Incontinence I, Shena Taylor, personally scribed for Dr. Butler on 12/01/2023 10:07:45. Elect (more content not included)... [facility] Comment on above: Result Comment: Electronically Signed By : Deven BUTLER MD\.br\Date and Time Signed: 12/01/23 10:12 EST\.br\Electronically Co-Signed By: Shena Taylor\.br\Date and Time Co-Signed: 12/01/23 10:08 EST Lab Reportson 10-18-2023 Lab Reports [id number]#1.00TIFF [facility] Lab Reportson 10-17-2023 Lab Reports [id number]#1.00TIFF [facility] Lab Reports [id number]#1.00TIFF [facility] Lab Reports [id number]#1.00TIFF [facility] Lab Reports [id number]#1.00TIFF [facility] Lab Reports [id number]#1.00TIFF [facility] Lab Reports [id number]#1.00TIFF Normal [facility] Lab Reports [id number]#1.00TIFF Normal [facility] Lab Reports [id number]#1.00TIFF Normal [facility] Lab Reports [id number]#1.00TIFF Normal [facility] Office Visiton 10-11-2023 Follow-up visit [id number] HavenMyronEdwin R 1935 M Date Provider Department Center 10/11/2023 ЕЛЕНА SALMON [facility] No family history on file Level of Service:66640 [place] POSTOP FOLLOW UP VISIT RELATED TO ORIGINAL PX Normal [facility] HPon 10-02-2023 [facility] Electrophysiology Note Reason for visit: bradycardia HPI: Edwin Zimmerman Haven is a 88 y.o. with PMH of [...] discontinued due to having ER visit with [facility] for complaints of dizziness and was [...] ECG 05/04/2018: Atrial fibrillation, possible old septal AK. ECG 05/28/2018 showed sinus rhythm with 1st degree AV block and PAC. Possible anteroseptal AK. ECG today 03/21/2019: sinus rhythm with 1st [...] alcohol abuse, Hematolog (more content not included)... [facility] NURSNOTEon 10-02-2023 NURSNOTE RN educated pt on d/ c instructions. RN encouraged pt to voice any questions or concerns. Pt verbalizes no questions or concerns at this time. Pt was wheeled off of unit with all of belongings. [facility] NURSNOTE CHG wipes and betadi ne nasal swabs completed. [facility] Orders Onlyon 10-02-2023 Orders Only [id number] Edwin Orourke 1935 M Date Provider Department Center 10/02/2023 EMETERIO GONZALEZ [facility] No family history on file Normal [facility] Orders Onlyon 09-25-2023 Orders Only [id number] Edwin Orourke 1935 M Date Provider Department Center 09/25/2023 EMETERIO GONZALEZ [facility] No family history on file Normal [facility] Telemedicineon 08-22-2023 Telemedicine [id number] Edwin Orourke 1935 M Date Provider Department Center 08/22/2023 Jose Juan-[facility]IO [facility] No family history on file Level of Service:43132 [place] PHYS/QHP TELEPHONE EVALUATION 11-20 MIN Normal [facility] 36on 07-27-2023 36 No vm Normal [facility] MR lumbar spine wo conon MR lumbar spine wo con [facility] [address] MRI Report Signed Patient: Edwin Orourke MR#: [id number] : 1935 Acct:[id number] Age/Sex: 88 / M ADM Date: 03/24/23 Loc: MR Room: Type: [facility] Attending Dr: Ramon Martines MD Copies [...] Mamta Barrios M.D.03/25/2023 2:26 PM Dictation Location: [place] [address] Transcribed By: [facility] 03/25/23 142 Dictated By: Mamta Barrios II, MD 03/25/23 1419 Signed By: 03/25/23 142 [facility] PROF CHEM 8 (BAS METB)on Anion gap [Moles/Vol] 10.7 mmol/L Normal [facility] Comment on above: Performed By: #### TSH #### [facility] Laboratory [address] [place] [address] Dr. Yue Vega Calcium [Mass/Vol] 9.4 mg/dL Normal 8.5-10.1 [facility] Comment on above: Performed By: #### TSH #### [facility] [address] [place] [address] [address] Yue Vega Chloride [Moles/Vol] 97 mmol/L Critically low 98-107 [facility] Comment on above: Performed By: #### TSH #### [facility] [address] [place] [address] Dr. Yue Vega CO2 [Moles/Vol] 31.8 mmol/L Normal 21.0-32.0 [facility] Comment on above: Performed By: #### TSH #### [facility] [address] [place] [address] Dr. Yue Vega Creatinine [Mass/Vol] 1.23 mg/dL Normal 0.70-1.30 [facility] Comment on above: Performed By: #### TSH #### [facility] [address] [place] [address] Dr. Yue Vega EGFR-AF ECUADOREAN >60 Normal >=60 [facility] Comment on above: Performed By: #### TSH #### [facility] [address] [place] [address] Dr. Yue Vega EGFR-NON AF ECUADOREAN 56 mL/min/1.73m2 Critically low >=60 [facility] Comment on above: Performed By: #### TSH #### [facility] [address] [place] [address] [address] Yue Vega Glucose [Mass/Vol] 153 mg/dL Critically high 74-106 [facility] Comment on above: Performed By: #### TSH #### [facility] [address] [place] [address] Dr. Yue Vega Potassium [Moles/Vol] 4.5 mmol/L Normal 3.5-5.1 [facility] Comment on above: Performed By: #### TSH #### [facility] [address] [place] [address] [address] Yue Vega Sodium [Moles/Vol] 135 mmol/L Critically low 136-145 [facility] Comment on above: Performed By: #### TSH #### [facility] [address] [place] [address] Dr. Yue Vega Urea nitrogen [Mass/Vol] 22.0 mg/dL Critically high 7.0-18.0 [facility] Comment on above: Performed By: #### TSH #### [facility] [address] [place] [address] [address] Yue Vega Urea nitrogen/Creatin ine [Mass ratio] 17.9 mg/mg Normal [facility] Comment on above: Performed By: #### TSH #### [facility] [address] [place] [address] [address] Yue Vega Creatinine (Bld) [Mass/Vol]O rdered By: Suzi Murray on 01-06-2023 Creatinine [Mass/Vol] 1.2 mg/dL 0.6-1.3 [facility] Comment on above: ER/ESD physician is notified/shown all I STAT results.Critical values may be confirmed by laboratory testing ifdeemed necessary by ER attending doctor. MR head/brain wo/w conon MR head/brain wo/w con [facility] [address] MRI Report Signed Patient: Edwin Orourke MR#: [id number] : 1935 Acct:[id number] Age/Sex: 87 / M ADM Date: 01/06/23 Loc: MR Room: Type: [facility] Attending Dr: Jose Eduardo Murray DO Copies [...] Mamta Barrios M.D.01/06/2023 5:26 PM Dictation Location: [place] [address] Transcribed By: [facility] 01/06/231725 Dictated By: Mamta Barrios II, MD 01/06/231719 Signed By: 01/06/231725 [facility] BNPon 12-26-2022 Natriuretic peptide B (Bld) [Mass/Vol] 483.0 pg/mL Normal <=1,800.0 [facility] Comment on above: Performed By: #### TSH #### [facility] [address] [place], [place] [address] Dr. Yue Vega CARDIAC MAMTA ADMITon 023 CK [Catalytic activity/Vol] 121 U/L Normal 39-308 [facility] Comment on above: Performed By: #### TSH #### [facility] [address] [place] [address] Dr. Yue Vega CK.MB [Mass/Vol] 1.73 ng/mL Normal <=3.60 [facility] Comment on above: Performed By: #### TSH #### [facility] [address] [place] [address] Dr. Yue Vega HSTROP 11.9 pg/mL Normal 4.0-76.1 [facility] Comment on above: Result Comment: CUT-OFF POINTS HAVE BEEN ESTABLISHED BASED ON THE FOURTH UNIVERSAL DEFINITIONS OF MYOCARDIAL INFARCTION. THE UPPER REFERENCE LIMIT (URL) OF TROPONIN, DEFINED THE 99TH PERCENTILE OF cTnI DISTRIBUTION IN A REFERENCE POPULATION, HAS BEEN CONFIRMED THE DECISION THRESHOLD FOR AK DIAGNOSIS. Performed By: #### T SH #### [facility] [address] [place] [address] Dr. Yue Vega CARI 113 ng/mL Critically high 16-96 [facility] Comment on above: Performed By: #### TSH #### [facility] [address] [place] [address] Dr. Yue Vega CBC AUTO DIFFon 12-26-2022 BASO # 0.1 103/ul Normal 0.0-0.1 [facility] Comment on above: Performed By: #### TSH #### [facility] [address] [place] [address] Dr. Yue Vega Basophils/100 WBC (Bld) 0.5 % Normal 0.2-2.0 [facility] Comment on above: Performed By: #### TSH #### [facility] [address] [place] [address] Dr. Yue Vega EO # 0.0 103/ul Normal 0.0-0.7 [facility] Comment on above: Performed By: #### TSH #### [facility] [address] [place] [address] Dr. Yue Vega Eosinophils/100 WBC (Bld) 0.3 % Critically low 0.9-7.0 [facility] Comment on above: Performed By: #### TSH #### [facility] [address] [place] [address] Dr. Yue Vega Erythrocyte distribution width (RBC) [Ratio] 12.4 % Normal 11.0-15.0 [facility] Comment on above: Performed By: #### TSH #### [facility] [address] [place] [address] Dr. Yue Vega Hematocrit (Bld) [Volume fraction] 42.7 % Normal 42.0-54.0 [facility] Comment on above: Performed By: #### TSH #### [facility] [address] [place] [address] Dr. Yue Vega Hemoglobin (Bld) [Mass/Vol] 14.5 g/dL Normal 14.0-18.0 [facility] Comment on above: Performed By: #### TSH #### [facility] [address] [place] [address] Dr. Yue Vega IG # 0.05 10e3/ul Critically high 0.00-0.03 [facility] Comment on above: Performed By: #### TSH #### [facility] [address] [place] [address] Dr. Yue Vega IG % 0.4 % Normal 0.0-0.5 [facility] Comment on above: Performed By: #### TSH #### [facility] [address] [place] [address] Dr. Yue Vega LYMPH # 1.4 103/ul Normal 1.2-3.8 [facility] Comment on above: Performed By: #### TSH #### [facility] [address] [place] [address] Dr. Yue Vega Lymphocytes/100 WBC (Bld) 10.7 % Critically low 20.5-60.0 [facility] Comment on above: Performed By: #### TSH #### [facility] [address] [place] [address] Dr. Yue Vega MANUAL DIFF REQ NO Normal [facility] Comment on above: Performed By: #### TSH #### [facility] [address] [place] [address] Dr. Yue Vega MCH (RBC) [Entitic mass] 30.7 pg Normal 25.9-34.0 [facility] Comment on above: Performed By: #### TSH #### [facility] [address] [place] [address] [address] Yue Vega MCHC (RBC) [Mass/Vol] 34.0 g/dL Normal 29.9-35.2 [facility] Comment on above: Performed By: #### TSH #### [facility] [address] [place] [address] [address] Yue Vega MCV (RBC) [Entitic vol] 90.3 fL Normal 80.0-94.0 [facility] Comment on above: Performed By: #### TSH #### [facility] [address] [place] [address] [address] Yue Vega MONO # 0.5 103/ul Normal 0.3-0.8 [facility] Comment on above: Performed By: #### TSH #### [facility] [address] [place] [address] Dr. Yue Vega Monocytes/100 WBC (Bld) 4.2 % Normal 1.7-12.0 [facility] Comment on above: Performed By: #### TSH #### [facility] [address] [place] [address] [address] Yue Vega NEUT # 10.8 103/ul Critically high 1.4-6.5 [facility] Comment on above: Performed By: #### TSH #### [facility] [address] [place] [address] [address] Yue Vega Neutrophils/100 WBC (Bld) 83.9 % Critically high 43.0-75.0 [facility] Comment on above: Performed By: #### TSH #### [facility] [address] [place] [address] [address] Yue Vega Platelet mean volume (Bld) [Entitic vol] 9.6 fL Normal 9.5-13.5 [facility] Comment on above: Performed By: #### TSH #### [facility] [address] [place] [address] [address] Yue Vega PLT 223 103/ul Normal 150-450 [facility] Comment on above: Performed By: #### TSH #### [facility] [address] [place] [address] [address] Yue Vega RBC 4.73 106/ul Normal 4.70-6.10 [facility] Comment on above: Performed By: #### TSH #### [facility] [address] [place] [address] [address] Yue Vega WBC 12.9 103/ul Critically high 4.0-11.0 [facility] Comment on above: Performed By: #### TSH #### [facility] [address] [place] HEAD WO CONon [...] SUZI NANCE Date: 2022-12-26 14:21 Normal [facility] ER URINE PROFILEon 3 Bilirubin Ql (U) Negative Normal NEGATIVE [facility] Comment on above: Performed By: #### DEEJAY LOBO #### [facility] [address] [place] [address] [address] Yue Vega Clarity (U) CLEAR Normal CLEAR [facility] Comment on above: Performed By: #### YAMIL UMICRO #### [facility] [address] [place] [address] Dr. Yue Vega Color (U) LT. YELLOW Normal YELLOW [facility] Comment on above: Performed By: #### YAMIL UMICRO #### [facility] [address] [place] [address] Dr. Yue ALCOCER A micrscopic examina tion will be performed if indicated. Normal [facility] Comment on above: Performed By: #### YAMIL UMICRO #### [facility] [address] [place] [address] Dr. Yue Vega Glucose Ql (U) 250 mg/dl Abnormal NEGATIVE [facility] Comment on above: Performed By: #### YAMIL UMICRO #### [facility] [address] [place] [address] Dr. Yue Vega Hemoglobin Ql (U) Negative Normal NEGATIVE [facility] Comment on above: Performed By: #### YAMIL UMICRO #### [facility] [address] [place] [address] Dr. Yue Vega Ketones Ql (U) Negative Normal NEGATIVE [facility] Comment on above: Performed By: #### YAMIL UMICRO #### [facility] [address] [place] [address] Dr. Yue Vega LEUKOCYTES Negative Normal NEGATIVE [facility] Comment on above: Performed By: #### YAMIL UMICRO #### [facility] [address] [place] [address] Dr. Yue Vega Nitrite Ql (U) Negative Normal NEGATIVE [facility] Comment on above: Performed By: #### YAMIL UMICRO #### [facility] [address] [place] [address] Dr. Yue Vega pH (U) 7.0 [pH] Normal 5-9 [facility] Comment on above: Performed By: #### YAMIL UMICRO #### [facility] [address] [place] [address] Dr. Yue Vega Protein (U) [Mass/Vol] 30 mg/dL Abnormal NEGATIVE/ TRACE [facility] Comment on above: Performed By: #### DEEJAY LOBO #### [facility] [address] [place] [address] Dr. Yue Vega SPEC GRAVITY 1.015 Normal 1.005-<=1. 025 [facility] Comment on above: Performed By: #### DEEJAY LOBO #### [facility] [address] [place] [address] Dr. Yue Vega UR MICRO IND INDICATED Normal [facility] Comment on above: Performed By: #### SERG LOBORO #### [facility] [address] [place] [address] Dr. Yue Vega Urobilinogen Qn (U) 0.2 {Anat'U}/dL Normal 0.2 - 1.0 [facility] Comment on above: Performed By: #### DEEJAY LOBO #### [facility] [address] [place] [address] Dr. Yue Vega PROF 14(COMP METB)on 023 Albumin [Mass/Vol] 4.1 g/dL Normal 3.4-5.0 [facility] Comment on above: Performed By: #### TSH #### [facility] [address] [place] [address] Dr. Yue Vega Albumin/Globulin [Mass ratio] 1.1 {ratio} Normal [facility] Comment on above: Performed By: #### TSH #### [facility] [address] [place] [address] Dr. Yue Vega ALP [Catalytic activity/Vol] 110 U/L Normal 46-116 [facility] Comment on above: Performed By: #### TSH #### [facility] [address] [place] [address] Dr. Yue Vega ALT [Catalytic activity/Vol] 24 U/L Normal 16-63 [facility] Comment on above: Performed By: #### TSH #### [facility] [address] [place] [address] Dr. Yue Vega Anion gap [Moles/Vol] 9.5 mmol/L Normal [facility] Comment on above: Performed By: #### TSH #### [facility] [address] [place] [address] Dr. Yue Vega AST [Catalytic activity/Vol] 25 U/L Normal 15-37 [facility] Comment on above: Performed By: #### TSH #### [facility] [address] [place] [address] [address] Yue Vega Bilirubin [Mass/Vol] 1.2 mg/dL Critically high 0.2-1.0 [facility] Comment on above: Performed By: #### TSH #### [facility] [address] [place] [address] [address] Yue Vega Calcium [Mass/Vol] 9.3 mg/dL Normal 8.5-10.1 [facility] Comment on above: Performed By: #### TSH #### [facility] [address] [place] [address] Dr. Yue Vega Chloride [Moles/Vol] 96 mmol/L Critically low 98-107 [facility] Comment on above: Performed By: #### TSH #### [facility] [address] [place] [address] [address] Yue Vega CO2 [Moles/Vol] 29.4 mmol/L Normal 21.0-32.0 [facility] Comment on above: Performed By: #### TSH #### [facility] [address] [place] [address] [address] Yue Vega Creatinine [Mass/Vol] 1.09 mg/dL Normal 0.70-1.30 [facility] Comment on above: Performed By: #### TSH #### [facility] [address] [place] [address] [address] Yue Vega EGFR-AF ECUADOREAN >60 Normal >=60 [facility] Comment on above: Performed By: #### TSH #### [facility] [address] [place] [address] [address] Yue Vega EGFR-NON AF ECUADOREAN >60 Normal >=60 [facility] Comment on above: Performed By: #### TSH #### [facility] [address] [address] [address] Yue Vega Globulin (S) [Mass/Vol] 3.8 g/dL Normal [facility] Comment on above: Performed By: #### TSH #### [facility] [address] [address] [address] Yue Vega Glucose [Mass/Vol] 218 mg/dL Critically high 74-106 [facility] Comment on above: Performed By: #### TSH #### [facility] [address] [address] [address] Yue Vega Potassium [Moles/Vol] 3.9 mmol/L Normal 3.5-5.1 [facility] Comment on above: Performed By: #### TSH #### [facility] [address] [place] [address] Dr. Yue Vega Protein [Mass/Vol] 7.9 g/dL Normal 6.4-8.2 [facility] Comment on above: Performed By: #### TSH #### [facility] [address] [place] [address] Dr. Yue Vega Sodium [Moles/Vol] 131 mmol/L Critically low 136-145 [facility] Comment on above: Performed By: #### TSH #### [facility] [address] [place] [address] Dr. Yue Vega Urea nitrogen [Mass/Vol] 19.0 mg/dL Critically high 7.0-18.0 [facility] Comment on above: Performed By: #### TSH #### [facility] [address] [place] [address] Dr. Yue Vega Urea nitrogen/Creatin ine [Mass ratio] 17.4 mg/mg Normal [facility] Comment on above: Performed By: #### TSH #### [facility] [address] [place] [address] Dr. Yue Vega PROTIMEon 12-26-2022 INR Coag (PPP) [Relative time] 1.00 {INR} Normal [facility] Comment on above: Performed By: #### PTT, PT #### [facility] [address] [place] [address] Dr. Yue Vega INR GUIDELINES SEE BELOW Normal [facility] Comment on above: Result Comment: DESIRED INR: 2.0 - 3.0 C ONDITIONS NOT LISTED BELOW 2.5 - 3.5 FOR PROSTHETIC HEART VALVE REPLACEMENT 2.5 - 3.5 RECURRENT THROMBOSIS Performed By: #### P TT, PT #### [facility] [address] [place] [address] Dr. Yue Vega PT Coag (PPP) [Time] 10.6 s Normal 9.0-11.6 [facility] Comment on above: Performed By: #### PTT, PT #### [facility] [address] [place] [address] Dr. Yue Vega PTTon 12-26-2022 aPTT Coag (Bld) [Time] 29.8 s Normal 22.3-36.2 [facility] Comment on above: Performed By: #### PTT, PT #### [facility] [address] [place] [address] Dr. Yue Vega TSHon 12-26-2022 TSH 2.693 uIU/mL Normal 0.358-3.74 0 [facility] Comment on above: Performed By: #### TSH #### [facility] [address] [place] [address] Dr. Yue Vega URINE MICROSCOPIC ONLYon BACTERIA NONE SEEN Normal NONE SEEN [facility] Comment on above: Performed By: #### SERG LOBORO #### [facility] [address] [place] [address] Dr. Yue Vega Bacteria identified Cx Nom (U) NOT INDICATED Normal [facility] Comment on above: Performed By: #### YAMIL UMICRO #### [facility] [address] [place] [address] Dr. Yue Vega CAST NONE SEEN Normal NONE SEEN [facility] Comment on above: Performed By: #### YAMIL UMICRO #### [facility] [address] [place] [address] Dr. Yue Vega Crystals LM Nom (Urine sed) NONE SEEN Normal NONE SEEN [facility] Comment on above: Performed By: #### ERUR, UMICRO #### [facility] [address] [address] [address] Yue Vega Epithelial cells LM Ql (Urine sed) NONE SEEN Normal NONE SEEN /RARE [facility] Comment on above: Performed By: #### ERUR, UMICRO #### [facility] [address] [address] [address] Yue Vega MUCOUS NONE SEEN Normal NONE SEEN [facility] Comment on above: Performed By: #### ERUR, UMICRO #### [facility] [address] [address] [address] Yue Vega RBC 0-2 Normal 0-2 [facility] Comment on above: Performed By: #### ERUR, UMICRO #### [facility] [address] [address] [address] Yue Vega WBC NONE SEEN Normal NONE SEEN [facility] Comment on above: Performed By: #### ERUR, UMICRO #### [facility] [address] [place] [address] Dr. Yue Vega XR CHEST 1 Von [...] SAYRA GUILLAUME Date: 2022-12-26 13:12 Normal [facility] METHYLMALONIC ACID (MMA)on 0 12-25-2022 Methylmalonic Acid, Serum 180 nmol/L Normal 0-378 [facility] Comment on above: Performed By: #### MMA2 #### [facility] [address] [place] [address] Dr. Yue Vega TSHon 12-21-2022 TSH 2.790 uIU/mL Normal 0.358-3.74 0 [facility] Comment on above: Performed By: #### TSH #### [facility] [address] [place] [address] Dr. Yue Vega VITAMIN B12on 12-21-2022 Cobalamin (Vitamin B12) [Mass/Vol] 919.0 pg/mL Normal 193.0-986. 0 [facility] Comment on above: Performed By: #### TSH #### [facility] [address] [place] [address] Dr. Yue Vega CBC AUTO DIFFon 09-26-2022 BASO # 0.1 103/ul Normal 0.0-0.1 [facility] Comment on above: Performed By: #### CBC #### [facility] [address] [place] [address] Dr. Yue Vega Basophils/100 WBC (Bld) 0.5 % Normal 0.2-2.0 [facility] Comment on above: Performed By: #### CBC #### [facility] [address] [place] [address] Dr. Yue Vega EO # 0.2 103/ul Normal 0.0-0.7 [facility] Comment on above: Performed By: #### CBC #### [facility] [address] [place] [address] Dr. Yue Vega Eosinophils/100 WBC (Bld) 2.1 % Normal 0.9-7.0 [facility] Comment on above: Performed By: #### CBC #### [facility] [address] [place] [address] Dr. Yue Vega Erythrocyte distribution width (RBC) [Ratio] 12.3 % Normal 11.0-15.0 [facility] Comment on above: Performed By: #### CBC #### [facility] [address] [place] [address] Dr. Yue Vega Hematocrit (Bld) [Volume fraction] 42.0 % Normal 42.0-54.0 [facility] Comment on above: Performed By: #### CBC #### [facility] [address] [place] [address] Dr. Yue Vega Hemoglobin (Bld) [Mass/Vol] 13.9 g/dL Critically low 14.0-18.0 [facility] Comment on above: Performed By: #### CBC #### [facility] [address] [place] [address] Dr. Yue Vega IG # 0.03 10e3/ul Normal 0.00-0.03 [facility] Comment on above: Performed By: #### CBC #### [facility] [address] [place] [address] Dr. Yue Vega IG % 0.3 % Normal 0.0-0.5 [facility] Comment on above: Performed By: #### CBC #### [facility] [address] [place] [address] Dr. Yue Vega LYMPH # 1.9 103/ul Normal 1.2-3.8 [facility] Comment on above: Performed By: #### CBC #### [facility] [address] [place] [address] Dr. Yue Vega Lymphocytes/100 WBC (Bld) 19.8 % Critically low 20.5-60.0 [facility] Comment on above: Performed By: #### CBC #### [facility] [address] [place] [address] Dr. Yue Vega MANUAL DIFF REQ NO Normal [facility] Comment on above: Performed By: #### CBC #### [facility] [address] [place] [address] Dr. Yue Vega MCH (RBC) [Entitic mass] 30.5 pg Normal 25.9-34.0 [facility] Comment on above: Performed By: #### CBC #### [facility] [address] [place] [address] Dr. Yue Vega MCHC (RBC) [Mass/Vol] 33.1 g/dL Normal 29.9-35.2 [facility] Comment on above: Performed By: #### CBC #### [facility] [address] [address] [address] Yue Vega MCV (RBC) [Entitic vol] 92.3 fL Normal 80.0-94.0 [facility] Comment on above: Performed By: #### CBC #### [facility] [address] [address] [address] Yue Vega MONO # 0.9 103/ul Critically high 0.3-0.8 [facility] Comment on above: Performed By: #### CBC #### [facility] [address] [place] [address] Dr. Yue Vega Monocytes/100 WBC (Bld) 9.5 % Normal 1.7-12.0 [facility] Comment on above: Performed By: #### CBC #### [facility] [address] [address] [address] Yue Vega NEUT # 6.4 103/ul Normal 1.4-6.5 [facility] Comment on above: Performed By: #### CBC #### [facility] [address] [place] [address] Dr. Yue Vega Neutrophils/100 WBC (Bld) 67.8 % Normal 43.0-75.0 [facility] Comment on above: Performed By: #### CBC #### [facility] [address] [address] [address] Yue Vega Platelet mean volume (Bld) [Entitic vol] 9.4 fL Critically low 9.5-13.5 [facility] Comment on above: Performed By: #### CBC #### [facility] [address] [address] [address] Yue Vega PLT 264 103/ul Normal 150-450 [facility] Comment on above: Performed By: #### CBC #### [facility] [address] [address] [address] Yue Vega RBC 4.55 106/ul Critically low 4.70-6.10 [facility] Comment on above: Performed By: #### CBC #### [facility] [address] [address] [address] Yue Vega WBC 9.4 103/ul Normal 4.0-11.0 [facility] Comment on above: Performed By: #### CBC #### [facility] [address] [place] [address] Dr. Yue Vega GLYCOHEMOGLOBIN A1Con 2021 ADA RECOMMENDATION SEE BELOW Normal [facility] Comment on above: Result Comment: ADA RECOMMENDED LIMIT 4. 0 - 6.0 ADA THERAPEUTIC TARGET < 7.0 ACTION SUGGESTED > 7.0 Performed By: #### A 1C #### [facility] [address] [place] [address] Dr. Yue Vega Glucose [Mass/Vol] 169 mg/dL Normal [facility] Comment on above: Performed By: #### A1C #### [facility] [address] [place] [address] Dr. Yue Vgea HbA1c (Bld) [Mass fraction] 7.5 % Critically high 4.5-6.2 [facility] Comment on above: Performed By: #### A1C #### [facility] [address] [place] [address] Dr. Yue Vega LIPID PROFILEon 09-26-2022 CHOL-HDL RATIO NORM SEE BELOW Normal [facility] Comment on above: Result Comment: 3.3 - 4.4 LOW RISK 4.4 - 7.1 AVERAGE RISK 7.1 - 11.0 MODERATE RISK >11.0 HIGH RISK Performed By: #### T SH #### [facility] [address] [place] [address] Dr. Yue Vega Cholesterol [Mass/Vol] 134 mg/dL Normal <=200 [facility] Comment on above: Performed By: #### TSH #### [facility] [address] [place] [address] Dr. Yue Vega Cholesterol in HDL [Mass/Vol] 51 mg/dL Normal 40-60 [facility] Comment on above: Performed By: #### TSH #### [facility] [address] [address] [address] Yue Vega Cholesterol in LDL [Mass/Vol] 63.4 mg/dL Normal [facility] Comment on above: Performed By: #### TSH #### [facility] [address] [address] [address] Yue Vega Cholesterol.tota l/Cholesterol in HDL [Mass ratio] 2.6 {ratio} Normal [facility] Comment on above: Performed By: #### TSH #### [facility] [address] [address] [address] Yue Vega HDL NORMAL > or = 60 mg/dl - LO W CARDIOVASCULAR RISK <40 mg/dl - HIGH CARDIOVASCULAR RISK Normal [facility] Comment on above: Performed By: #### TSH #### [facility] [address] [address] [address] Yue Vega LDL CALC NORMAL SEE BELOW Normal [facility] Comment on above: Result Comment: <100 mg/dl OPTIMAL 100 - 129 mg/dl NEAR OR ABOVE OPTIMAL 130 - 159 mg/dl BORDERLINE HIGH 160 - 189 mg/dl HIGH >190 mg/dl VERY HIGH Performed By: #### T SH #### [facility] [address] [address] [address] Yue Vega Triglyceride [Mass/Vol] 98 mg/dL Normal <=150 [facility] Comment on above: Performed By: #### TSH #### [facility] [address] [address] [address] Yue Vega VLDL CALC 19.6 mg/dL Normal [facility] Comment on above: Performed By: #### TSH #### [facility] [address] [address] [address] Yue Vega LIVER PROFILEon 09-26-2022 Albumin [Mass/Vol] 3.8 g/dL Normal 3.4-5.0 [facility] Comment on above: Performed By: #### LIPID, BMP, LIVER ### # [facility] [address] [address] [address] Yue Vega Albumin/Globulin [Mass ratio] 0.9 {ratio} Normal [facility] Comment on above: Performed By: #### LIPID, BMP, LIVER ### # [facility] [address] [address] [address] Yue Vega ALP [Catalytic activity/Vol] 94 U/L Normal 46-116 [facility] Comment on above: Performed By: #### LIPID, BMP, LIVER ### # [facility] [address] [address] [address] Yue Vega ALT [Catalytic activity/Vol] 34 U/L Normal 16-63 [facility] Comment on above: Performed By: #### LIPID, BMP, LIVER ### # [facility] [address] [address] [address] Yue Vega AST [Catalytic activity/Vol] 30 U/L Normal 15-37 [facility] Comment on above: Performed By: #### LIPID, BMP, LIVER ### # [facility] [address] [address] [address] Yue Vega BILI, CONJUGATED 0.2 mg/dL Normal 0.0-0.2 [facility] Comment on above: Performed By: #### LIPID, BMP, LIVER ### # [facility] [address] [address] [address] Yue Vega Bilirubin [Mass/Vol] 0.9 mg/dL Normal 0.2-1.0 [facility] Comment on above: Performed By: #### LIPID, BMP, LIVER ### # [facility] [address] [address] [address] Yue Vega Globulin (S) [Mass/Vol] 4.2 g/dL Normal [facility] Comment on above: Performed By: #### LIPID, BMP, LIVER ### # [facility] [address] [address] [address] Yue Vega Protein [Mass/Vol] 8.0 g/dL Normal 6.4-8.2 [facility] Comment on above: Performed By: #### LIPID, BMP, LIVER ### # [facility] [address] [address] [address] Yue Vega MICROALBUMIN, RAND URon 12- mALB 16.8 mg/L Normal <=30.0 [facility] Comment on above: Performed By: #### DEEJAY LOBO #### [facility] [address] [address] [address] Yue Vega PROF CHEM 8 (BAS METB)on Anion gap [Moles/Vol] 12.2 mmol/L Normal [facility] Comment on above: Performed By: #### TSH #### [facility] [address] [address] [address] Yue Vega Calcium [Mass/Vol] 9.4 mg/dL Normal 8.5-10.1 [facility] Comment on above: Performed By: #### TSH #### [facility] [address] [place] [address] Dr. Yue Vega Chloride [Moles/Vol] 99 mmol/L Normal 98-107 [facility] Comment on above: Performed By: #### TSH #### [facility] [address] [address] [address] Yue Vega CO2 [Moles/Vol] 32.1 mmol/L Critically high 21.0-32.0 [facility] Comment on above: Performed By: #### TSH #### [facility] [address] [address] [address] Yue Vega Creatinine [Mass/Vol] 1.19 mg/dL Normal 0.70-1.30 [facility] Comment on above: Performed By: #### TSH #### [facility] [address] [address] [address] Yue Vega EGFR-AF ECUADOREAN >60 Normal >=60 [facility] Comment on above: Performed By: #### TSH #### [facility] [address] [address] [address] Yue Vega EGFR-NON AF ECUADOREAN 58 mL/min/1.73m2 Critically low >=60 [facility] Comment on above: Performed By: #### TSH #### [facility] [address] [address] [address] Yue Vega Glucose [Mass/Vol] 158 mg/dL Critically high 74-106 [facility] Comment on above: Performed By: #### TSH #### [facility] [address] [address] [address] Yue Vega Potassium [Moles/Vol] 4.3 mmol/L Normal 3.5-5.1 [facility] Comment on above: Performed By: #### TSH #### [facility] [address] [address] [address] Yue Vega Sodium [Moles/Vol] 139 mmol/L Normal 136-145 [facility] Comment on above: Performed By: #### TSH #### [facility] [address] [address] [address] Yue Vega Urea nitrogen [Mass/Vol] 24.0 mg/dL Critically high 7.0-18.0 [facility] Comment on above: Performed By: #### TSH #### [facility] [address] [address] [address] Yue Vega Urea nitrogen/Creatin ine [Mass ratio] 20.2 mg/mg Normal [facility] Comment on above: Performed By: #### TSH #### [facility] [address] [address] [address] Yue Vega XR wrist LT min 3V*on 2021 XR wrist LT min 3V* [facility] [address] XRay Report Signed Patient: Edwin Orourke MR#: [id number] : 1935 Acct:[id number] Age/Sex: 87 / M ADM Date: 09/05/22 Loc: [facility] Room: Type: [facility] Attending Dr: Sanaz ALEX Copies to: SANAZ [...] Rene Jr., D.OMarli09/05/2022 5:57 PM Dictation Location: [address] [address] Transcribed By: [facility] 09/05/221756 Dictated By: Albert Rene Jr, DO 09/05/221756 Signed By: 09/05/221756 Normal [facility] XR wrist LT min 3V* [facility] [employer] Other XR wrist LT min 3V* [facility] [employer] Other XR wrist LT min 3V* [address] [place] [address] [facility] Other XR wrist LT min 3V* [place] [id number] [facility] Other XR wrist LT min 3V* XRay Report [facility] Other XR wrist LT min 3V* Signed [facility] Other XR wrist LT min 3V* Patient: Edwin Orourke MR#: [id number] [facility] Other XR wrist LT min 3V* [id number] [facility] Other XR wrist LT min 3V* : 1935 Acct:[id number] [facility] Other XR wrist LT min 3V* Age/Sex: 87 / M ADM Date: 09/05/22 [facility] Other XR wrist LT min 3V* Loc: [facility]DUCLY Room: Type: [facility] Other XR wrist LT min 3V* Attending Dr: Sanaz Campo MILK INSPECTOR-C [facility] Other XR wrist LT min 3V* Copies to: SANAZ CAMPOP-Westley [facility] Other XR wrist LT min 3V* Ordering Provider: SANAZ CAMPOP-Westley [facility] Other XR wrist LT min 3V* Date of Service: 09/05/22 [facility] Other XR wrist LT min 3V* XR/XR wrist LT min 3V*: Injury of left wrist, initial encounter [facility] Other XR wrist LT min 3V* LEFT WRIST - 4 views [facility] Other XR wrist LT min 3V* CLINICAL HISTORY: Fall this morning. Now with left wrist pain. [facility] Other XR wrist LT min 3V* COMPARISON: None [facility] Other XR wrist LT min 3V* FINDINGS: [facility] Other XR wrist LT min 3V* No focal soft tissue abnormality. Vascular calcifications. No acute bony process is seen. [facility] Other XR wrist LT min 3V* Degenerative changes involving the carpus, worst at the CMC joint of the thumb. [facility] Other XR wrist LT min 3V* XR/XR wrist LT min 3V* [facility] Other XR wrist LT min 3V* IMPRESSION: [facility] Other XR wrist LT min 3V* NO ACUTE BONY PROCESS. [employer] [facility] [employer] Other XR wrist LT min 3V* Impression dictated by: Albert Rene Jr., D.OMarli09/05/2022 5:57 PM [facility] Other XR wrist LT min 3V* Dictation Location: [place] [address] [facility] Other XR wrist LT min 3V* Transcribed By: MEGAN 09/05/22 [facility] Other XR wrist LT min 3V* Dictated By: Albert Rene Jr, 09/05/22 [facility] Other XR wrist LT min 3V* Signed By: [facility] Other XR wrist LT min 3V* 09/05/22 [facility] Other GLYCOHEMOGLOBIN A1Con 2021 ADA RECOMMENDATION SEE BELOW Normal [facility] Comment on above: Result Comment: ADA RECOMMENDED LIMIT 4. 0 - 6.0 ADA THERAPEUTIC TARGET < 7.0 ACTION SUGGESTED > 7.0 Performed By: #### A 1C #### [facility] [address] [address] [address] Yue Vega Glucose [Mass/Vol] 154 mg/dL Normal [facility] Comment on above: Performed By: #### A1C #### [facility] [address] [address] [address] Yue Vega HbA1c (Bld) [Mass fraction] 7.0 % Critically high 4.5-6.2 [facility] Comment on above: Performed By: #### A1C #### [facility] [address] [address] [address] Yue Vega Cardiovascular Lab Reporton 05-30-2018 Cardiovascular Lab Report [id number] Physician: Devendra Hood M.D.Medicine Service Date: 05/29/2018Division of Birthdate: 1935Cardiology Room #: 3CD [id number] [facility] [place], [place] [address]Ajglz Fax Cardiovascular Laboratory ReportINDICATION: Edwin Orourke is an 83-year-old man with history ofhypertension, hyperlipidemia, and diabetes. He recently presented to theemergency room in [facility] with typical unstable angina. He thenhad [...] signed informed consent. He was brought to [employer] in a fasting state.The left wrist area was prepped and draped in usual fashion. Tiago's testwas favorable. Access in the left radial artery was obtained usingultrasound guidance and micropuncture technique. A 6-Brazilian x 11 cmHydrophilic sheath was left. Verapamil was given through the sheath andheparin was administered intravenously. Bilateral selective coronaryangiography was then performed using 6-Brazilian JL4 for engagement of theleft coronary artery and a 6-Brazilian JR4 followed by a 6-Brazilian ALIREZA catheterfor engagement of the right coronary artery. Catheters were removed.Therapeutic ACT confirmed during the procedure and additional heparin givenas needed. A 6-Brazilian XB 3.5 guiding catheter was advanced and [...] 11 atmospheres and post dilated using [employer] [place] 2.5 x 8 mm noncompliant balloon inflated [...] 11atmospheres and post dilated using [place] Quantum [place] 2.5 x 15 mm noncompliantballoon inflated at 18 atmospheres throughout the length of the stent.Angiography was performed. Intracoronary nitroglycerin was administered.It was decided to deploy an additional stent distal to the previouslydeployed stent. This was a Synergy 2.25 x 12 mm stent, deployed at 11atmospheres and post dilated using [place] [employer] [place] 2.5 x 15 mm noncompliantballoon inflated at [...] 05/29/2018/01:20 P/Devendra Flores M.D.Date Trans: 05/30/2018 11:47 A/Johan_[id number]: Darrin Velasquez D.O. [address] [facility] [address] [place] [address] Ramon Martines M.D. [address] [place] [address] [facility] POC GLUCOSE LABon 05-30-2018 Glucose mass conc 121 mg/dL High 70-100 [facility] Comment on above: Performed By: #### [id number] ####[facility] [place] [address], [facility] POC GLUCOSE LABon 05-29-2018 Glucose mass conc 126 mg/dL High 70-100 [facility] Comment on above: Performed By: #### [id number] ####[facility] [place] [address], [facility] Glucose mass conc 127 mg/dL High 70-100 [facility] Comment on above: Performed By: #### [id number] ####[facility] Vital Signs Date Time Vital Sign Value Performing Clinician Facility 08-13-2024 11:04-0400 Body height 177.8 cm Ramon Martines MD Work Phone: [facility] 08-13-2024 11:04-0400 Body temperature 97.11 [degF] Ramon Martines MD Work Phone: [facility] 08-13-2024 11:04-0400 Diastolic blood pressure 52 mm[Hg] Ramon Martines MD Work Phone: [facility] 08-13-2024 11:04-0400 Heart rate 76 /min Ramon Martines MD Work Phone: [facility] 08-13-2024 11:04-0400 Respiratory rate 20 /min Ramon Martines MD Work Phone: [facility] 08-13-2024 11:04-0400 SaO2% (BldA) [Mass fraction] 97 % Ramon Martines MD Work Phone: [facility] 08-13-2024 11:04-0400 Systolic blood pressure 130 mm[Hg] Ramon Martines MD Work Phone: [facility] 06-04-2024 13:35-0400 Body height 177.8 cm Ramon Martines MD Work Phone: [facility] 06-04-2024 13:35-0400 Body temperature 97.81 [degF] Ramon Martines MD Work Phone: [facility] 06-04-2024 13:35-0400 Diastolic blood pressure 52 mm[Hg] Ramon Martines MD Work Phone: [facility] 06-04-2024 13:35-0400 Heart rate 76 /min Ramon Martines MD Work Phone: [facility] 06-04-2024 13:35-0400 Respiratory rate 20 /min Ramon Martines MD Work Phone: [facility] 06-04-2024 13:35-0400 SaO2% (BldA) [Mass fraction] 98 % Ramon Martines MD Work Phone: [facility] 06-04-2024 13:35-0400 Systolic blood pressure 122 mm[Hg] Ramon Mratines MD Work Phone: [facility] 05-31-2024 10:44-0400 Blood Pressure Location Deven BUTLER [facility] 05-31-2024 10:44-0400 Body temperature 98.6 [degF] Deven BUTLER [facility] 05-31-2024 10:44-0400 Diastolic blood pressure 71 mm[Hg] Deven BUTLER [facility] 05-31-2024 10:44-0400 Heart rate 62 /min Deven BUTLER [facility] 05-31-2024 10:44-0400 Respiratory rate 16 /min Deven BUTLER [facility] 05-31-2024 10:44-0400 Systolic blood pressure 130 mm[Hg] Deven BUTLER [facility] 12-01-2023 09:23-0500 Blood Pressure Location Deven BUTLER [facility] 12-01-2023 09:23-0500 Diastolic blood pressure 63 mm[Hg] Deven BUTLER [facility] 12-01-2023 09:23-0500 Heart rate 60 /min Deven BUTLER [facility] 12-01-2023 09:23-0500 Respiratory rate 16 /min Deven BUTLER [facility] 12-01-2023 09:23-0500 Systolic blood pressure 111 mm[Hg] Deven BUTLER [facility] 09-05-2022 17:40-0500 Body height 180.34 cm Sanaz Campo Other [facility] Other 09-05-2022 17:40-0500 Body mass index (BMI) [Ratio] 27.89 kg/m2 Sanaz Campo Other [facility] Other 09-05-2022 17:40-0500 Body temperature 97.6 [degF] Sanaz Campo Other [facility] Other 09-05-2022 17:40-0500 Body weight 90.72 kg Sanaz Campo Other [facility] Other 09-05-2022 17:40-0500 Diastolic blood pressure 63 mm[Hg] Sanaz Campo Other [facility] Other 09-05-2022 17:40-0500 Respiratory rate 16 /min Sanaz Campo Other [facility] Other 09-05-2022 17:40-0500 SaO2% (BldA) [Mass fraction] 97 % Sanaz Campo Other [facility] Other 09-05-2022 17:40-0500 Systolic blood pressure 153 mm[Hg] Sanaz Campo Other [facility] Other Encounters Encounter Date Encounter Type Care Provider Facility Start: 11-08-2024 ambulatory LUKAS SAPP Facili ty:[facility] Start: 10-08-2024 End: 10-08-2024 ambulatory LUKAS SAPP Facility: [facility] Start: 10-08-2024 End: 10-08-2024 Patient encounter procedure LUKAS FIGUEREDORY [facility] Start: 09-10-2024 End: 09-10-2024 ambulatory Yi X Orzech Facility: Start: 09-10-2024 End: 09-10-2024 Patient encounter procedure Yi X Orzech [facility] Start: 09-02-2024 End: 09-02-2024 ambulatory Soy Turpin MD Facility: [place] Start: 08-16-2024 ambulatory Deven Wardi ty:[facility] Start: 08-13-2024 End: 08-13-2024 ambulatory Yi X Orzech Facility: Start: 08-13-2024 End: 08-13-2024 Miguel Ángel Martines MD Work Phone: [facility] Start: 08-13-2024 End: 08-13-2024 Bamboo flowsheet Ramon Martines MD Work Phone: [facility] Start: 08-13-2024 End: 08-13-2024 Patient encounter procedure Ramon Martines MD Work Phone: [facility] Work Phone: Start: 08-13-2024 End: 08-13-2024 Postop follow up visit related to original px Ramon Martines MD Work Phone: [facility] Comment on above: Medicare annual well ness visit, subsequent (Primary Dx); Stage 3a chronic kidney disease (HCC) ([facility]/HCC); Type 2 diabetes mellitus with diabetic chronic kidney disease ([facility]/HCC) Start: 08-13-2024 End: 08-13-2024 ambulatory RAMON MARTINES Not Available Start: 07-26-2024 ambulatory Deven BUTLER Facili ty:[facility] [place] Start: 07-19-2024 End: 07-19-2024 ambulatory Deven BUTLER Facility:[facility] [place] Start: 07-19-2024 End: 07-19-2024 Patient encounter procedure Deven BUTLER [facility] Start: 06-21-2024 End: 06-21-2024 ambulatory Deven BUTLER Facility:[facility] [place] Start: 06-21-2024 End: 06-21-2024 Patient encounter procedure Deven BUTLER [facility] Start: 06-14-2024 End: 06-17-2024 Clinisync Result Encounter Generic External Data Provider [facility] External [facility] Unsolicited Start: 06-14-2024 End: 06-17-2024 Clinisync Result Encounter Generic External Data Provider [facility] External Department Unsolicited Start: 06-04-2024 End: 08-20-2024 Bamboo flowsheet Ramon Martines MD Work Phone: [facility] Start: 06-04-2024 End: 06-04-2024 Bamboo flowsheet Ramon Martines MD Work Phone: [facility] Start: 06-04-2024 End: 06-04-2024 Clinisync Result Encounter Ramon Martines MD Work Phone: [facility] External Department Unsolicited Start: 06-04-2024 End: 06-04-2024 Office outpatient visit 25 minutes Ramon Martines MD Work Phone: [facility] Comment on above: Type 2 diabetes roland itus with hyperglycemia, without long-term current use of insulin (CMS/HCC) (Primary Dx); Essential hypertension, benign (CMS/HCC); Encounter for long-term (current) use of medications; Chronic constipation; Lumbar spondylosis; Generalized anxiety disorder (CMS/HCC); Chronic diastolic heart failure (CMS/HCC); Type 2 diabetes mellitus with diabetic chronic kidney disease (HCC) (CMS/HCC); Chronic kidney disease, stage 2 (mild) Start: 06-04-2024 End: 06-04-2024 ambulatory RAMON MARTINES Not Available Start: 05-31-2024 End: 05-31-2024 ambulatory Deven BUTLER Facility:[facility] Start: 05-31-2024 End: 05-31-2024 Lab Drop off Deven BUTLER [facility] Start: 05-31-2024 End: 05-31-2024 ambulatory Deven BUTLER Facility:[facility] Start: 05-31-2024 End: 05-31-2024 Patient encounter procedure Deven BUTLER [facility] Start: 05-28-2024 End: 05-28-2024 ambulatory [facility] Start: 04-02-2024 End: 04-02-2024 ambulatory [facility] Start: 01-30-2024 End: 01-30-2024 ambulatory Deven BUTLER Facility:[facility] Start: 01-30-2024 End: 01-30-2024 Patient encounter procedure Deven BUTLER [facility] Start: 12-28-2023 End: 12-28-2023 ambulatory [facility] Start: 12-26-2023 End: 12-26-2023 ambulatory [facility] Start: 12-13-2023 End: 12-13-2023 ambulatory RAMON MARTINES Not Available Start: 12-01-2023 End: 12-01-2023 ambulatory Deven BUTLER Facility:[facility] Start: 12-01-2023 End: 12-01-2023 Patient encounter procedure Deven BUTLER [facility] Start: 11-21-2023 End: 11-21-2023 ambulatory [facility] Start: 11-06-2023 End: 11-06-2023 ambulatory Deven BUTLER Facility:[facility] Start: 10-11-2023 End: 10-11-2023 ambulatory ЕЛЕНА [facility] Start: 10-02-2023 ambulatory [facility] Start: 10-02-2023 End: 10-02-2023 ambulatory [facility] Start: 08-22-2023 End: 08-22-2023 ambulatory [facility] Start: 03-24-2023 End: 03-24-2023 ambulatory Ramon Martines Facility:[facility] Start: 02-16-2023 End: 02-17-[address] DOCTOR NAGEL Facility:[facility] Start: 01-06-2023 End: 01-06-2023 ambulatory Jose Eduardo Murray Facility:[facility] Start: 01-06-2023 End: 01-06-2023 ambulatory MD Ramon Martines Work Phone: [facility] Work Phone: Start: 01-06-2023 End: 01-06-2023 Patient encounter procedure MD Ramon Martines Work Phone: [facility] [place] Work Phone: Start: 12-26-2022 End: 12-26-2022 ambulatory GONZÁLEZ HADDAD . Facility:[facility] Start: 12-21-2022 End: 12-22-2022 ambulatory SUZI MURRAY Facility:[facility] Start: 12-06-2022 End: 12-31-[address] RAMON MARTINES Facility:[facility] Start: 09-26-2022 End: 09-27-[address] RAMON MARTINES Facility:[facility] Start: 09-05-2022 End: 09-05-2022 ambulatory Sanaz Campo Facility:[facility] Start: 09-05-2022 End: 09-05-2022 Patient encounter procedure MILK INSPECTOR-C Sanaz Campo Work Phone: [facility] [place] Start: 09-05-2022 End: 09-05-2022 ambulatory MILK INSPECTOR-C Sanaz Campo Work Phone: [facility] Work Phone: Start: 09-05-2022 Office outpatient visit 15 minutes Sanaz Campo [facility] [place] Start: 04-19-2022 End: 04-20-[address] RAMON MARTINES Facility: Start: 05-29-2018 End: 05-30-2018 Patient encounter PROVIDER UNKNOWN Facility:[facility] Start: 05-28-2018 End: 05-29-2018 Patient encounter DEFAULT PHYSICIAN Facility:[facility] Start: 05-20-2018 End: 05-21-2018 Patient encounter DEFAULT PHYSICIAN Facility:[facility] Procedures Date Procedure Procedure Detail Performing Clinician Start: 06-14-2024 Bacteria identified in Urine by Culture Generic External Data Provider Start: 06-04-2024 ALL BASIC METABOLIC PANEL Ramon Martines MD Work Phone: Start: 01-30-2024 Cystoscopy Deven MARTINEZ Start: 01-30-2024 Urodynamic studies Jyotsna BUTLER Start: 01-06-2023 MRI of head MD Ramon chapman Work Phone: Start: 09-05-2022 Plain X-ray of left wrist MILK INSPECTOR-C Sanaz Campo Work Phone: Appendectomy Deven BUTLER Arthroplasty of knee Deven BUTLER Extraction of cataract Mayra BUTLER Implantation of radioactive seed into prostate Deven BUTLER Placement of stent i n cardiac conduit Deven BUTLER Plan of Treatment Date Care Activity Detail Author Start: 07-17-2025 Glaucoma screening Diabetes: R etinopathy Screening [facility] Start: 02-14-2025 End: 02-14-2025 Patient encounter procedure 02/14/2025 11:00 AM EDT Office Visit [facility] [address] [place] [id number] Ramon Martines MD [address] [place] [address] [facility] Start: 12-21-2024 Urine screening for protein Diabetes: Urine Protein Screening [facility] Start: 12-05-2024 Hemoglobin A1c measurement Diabetes: Hemoglobin A1C [facility] Start: 08-13-2024 End: 08-13-2024 Patient encounter procedure [facility] Comment on above: Arrived Start: 07-31-2024 End: 07-31-2024 Patient encounter procedure 07/31/2024 1:00 PM EDT Office Visit [facility] [address] [place] [address] Cher Churchill, LENDING MANAGER-TENDER COORDINATOR [address] [place] [address] [facility] Start: 06-23-2024 Hemoglobin A1c measurement Diabetes: Hemoglobin A1C [facility] Start: 06-16-2024 Influenza vaccination Influenza Vacc ine (#1) [facility] Start: 06-04-2024 End: 06-04-2025 Basic metabolic 1998 panel - Serum or Plasma Basic metabolic panel Lab Routine Essential hypertension, benign ([facility]/HCC) Expected: 06/04/2024 (Approximate), Expires: 06/04/2025 [facility] Comment on above: Expected: 06/04/2024 (Approximate), Expires: 06/04/2025 Start: 06-04-2024 End: 06-04-2025 Hemoglobin A1c/Hemoglobin.total in Blood Hemoglobin A1c Lab Routine Type 2 diabetes mellitus with hyperglycemia, without long-term current use of insulin ([facility]) Expected: 06/04/2024 (Approximate), Expires: 06/04/2025 [facility] Work Phone: Comment on above: Expected: 06/04/2024 (Approximate), Expires: 06/04/2025 Start: 06-04-2024 End: 06-04-2024 Patient encounter procedure 06/04/2024 1:30 PM EDT Office Visit [facility] [address] [place] [id number] Ramon Martines MD [address] [place] [phone] Arrived [facility] Comment on above: Arrived Start: 03-23-2024 Hemoglobin A1c measurement Diabetes: Hemoglobin A1C [facility] Start: 1945 Glaucoma screening Diabetes: R etinopathy Screening [facility] Start: 1943 Pneumococcal Vaccine : 65+ Years (1 of 2 - PCV) Pneumococcal Vaccine: 65+ Years (1 of 2 - PCV) [facility] Start: 1937 Medicare Annual Wellness (AWV) Medicare Annual Wellness (AWV) [facility] Bacteria identified in Urine by Culture URINE CULTURE, ROUTINE Lab Routine 06/14/2024 12:55 PM EDT [facility] Payers Date Payer Category Payer Self-pay 2021 Private Health Insurance [employer] [id number] 2021 Unknown 2001 Medicare [id number] 1959 Medicare [id number] 1959 Unknown [id number] 1937 Unknown [id number] 2.840.1.129613.3.579.2. 593 1937 Unknown [id number] 2.840.1.810292.3.579.2. 593 1937 Unknown [id number] 2.840.1.870030.3.579.2. 593 1937 Unknown [id number] 2.840.1.278081.3.579.2. 593 1937 Unknown [id number] 2.16840.1.107955.3.579.2. 593 1937 Unknown [id number] 2.840.1.443804.3.579.2. 593 1937 Unknown [id number] 2.16840.1.700410.3.579.2. 727 1937 Unknown [id number] 2.16.840.1.006368.3.579.2. 727 1937 Unknown [id number] 2.16.840.1.881378.3.579.2. 727 1937 Unknown [id number] 2.16.840.1.637252.3.579.2. 727 1937 Unknown [id number] 2.16.840.1.729156.3.579.2. 727 1937 Unknown [id number] 2.16.840.1.658005.3.579.2. 727 1937 Unknown [id number] 2.16.840.1.088086.3.579.2. 1259 1937 Unknown [id number] 2.16.840.1.727341.3.579.2. 1259 1937 Unknown [id number] 2.16.840.1.421326.3.579.2. 1259 1937 Unknown [id number] 2.16.840.1.913774.3.579.2. 196 1937 Unknown [id number] 2.16.840.1.953466.3.579.2. 727 1937 Unknown [id number] 2.16.840.1.333953.3.579.2. 727 1937 Unknown [id number] 2.16.840.1.955294.3.579.2. 727 1937 Unknown [id number] 2.16.840.1.363970.3.579.2. 727 1937 Unknown [id number] 2.16.840.1.717546.3.579.2. 727 1937 Unknown [id number] 2.16.840.1.528092.3.579.2. 727 1937 Unknown [id number] 2.16.840.1.122445.3.579.2. 727 1937 Unknown [id number] 2.16.840.1.873556.3.579.2. 727 Medicare [id number] Unknown [id number] 2.16.840.1.178376.3.579.2. 531 Unknown [id number] 2.16.840.1.799069.3.579.2. 531 Unknown [id number] 2.16.840.1.713923.3.579.2. 531 Social History Date Type Detail [facility] Work Phone: Start: 1935 Sex Assigned At Male F [facility] Start: 12-13-2023 End: 06-04-2024 Sex Assigned At [facility] Start: 03-02-2020 End: 08-13-2024 Tobacco smoking status Never smoked tobacco (finding) [facility] Start: 12-13-2023 End: 06-04-2024 Alcoholic beverage intake Lifetime non-drinker (finding) [facility] Start: 12-13-2023 End: 06-04-2024 History of Social function [facility] Start: 1935 Sex assigned at Not on file [facility] Medical Equipment Procedure Code Equipment Code Equipment Origin al Text Equipment Identifier Dates 1 each by In Vit ro route Daily [id number] Start: 12-13-2023 Functional Status Date Assessment Result Facility 05-31-2024 Functional Status N/A [facility] 01-30-2024 Functional Status N/A [facility] 12-01-2023 Functional Status N/A [facility] Clinical Notes 09-05-2022 to 08-13-2024 Ramon Martines MD - 08/13/2024 11:44 AM Tim Martines MD - 08/13/2024 11:43 AM Tim Martines MD - 08/13/2024 11:00 AM EDTMramsey Martines MD - 06/04/2024 2:11 PM EDT Note Date & Type Note Facility 08-13-2024 History of Present illness Narrative Associated Problem(s): Stage 3a chronic kidney disease (HCC) (CMS/HCC) Renal function stable. Associated Problem(s): Medicare annual [...] Visit Stage 3a chronic kidney disease (HCC) (CMS/HCC) Renal function stable. Medicare annual wellness visit, subsequent - Primary Reviewed labs. Discussed proper diet and regular aerobic exercise. Need aerobic exercise 5-6 days a week for 30 minutes at a time. Smaller portions and limit total calories. Tetanus every 10 years. Advised not to smoke. Discussed daily Aspirin therapy. documented in this encounter [facility] 06-04-2024 History of Present illness Narrative Associated Problem(s): Type 2 diabetes mellitus with hyperglycemia, without long-term current use of insulin (CMS/HCC) Not checking BS and due for A1C. Associated Problem(s): Major depressive disorder, recurrent episode, moderate (HCC) (CMS/HCC) Symptoms improved with celexa and continue. Associated Problem(s): Lumbar spondylosis Pain much improved and monitor. Associated Problem(s): Generalized anxiety disorder (CMS/HCC) Occasional symptoms and continue celexa. Use hydroxyzine PRN. Associated Problem(s): Essential hypertension, benign (CMS/HCC) BP controlled and monitor PRN. Associated Problem(s): Chronic diastolic heart failure (CMS/HCC) No edema and continue medication. Elevate legs PRN. Associated Problem(s): Chronic constipation Regular BM and use senna PRN. Images from the original note were not included. Subjective Patient ID: Edwin Orourke is a 89 y.o. male who presents for Follow-up (Hospice f/up). Follow up DM, HTN, back pain, afib, and CHF. Patient was on hospice for past several months and recently off. Not checking BS away from office and due for A1C. Decreased appetite and not eating much. Checking BP PRN and typically controlled. BP normal today. Taking medication daily and tolerating without side effects. Afib stable. No palpitations or heart racing. Not lightheaded or dizzy. Reports back pain resolved. Started sleeping in lift chair and feels much better. Edema controlled with medication. Mild swelling at end of day and if on feet a lot. Edema improved in am and with elevation. Constipation stable with medication. Typically normal BM and not straining for BM. C/o itching and hydroxyzine helps. Increased anxiety and worse when having to leave house. Review of Systems Constitutional: Negative for fatigue. [...] There is no guarding or rebound. Musculoskeletal: Left lower leg: No edema. Neurological: Mental Status: He is alert. Assessment/Plan Problem List Items Addressed This Visit Chronic diastolic heart failure (CMS/HCC) No edema and continue medication. Elevate legs PRN. Essential hypertension, benign (CMS/HCC) BP controlled and monitor PRN. Relevant Orders Basic metabolic panel Generalized anxiety disorder (CMS/HCC) Occasional symptoms and continue celexa. Use hydroxyzine PRN. Relevant Medications hydrOXYzine HCl (Atarax) 25 MG tablet Lumbar spondylosis Pain much improved and monitor. Type 2 diabetes mellitus with hyperglycemia, without long-term current use of insulin (CMS/HCC) - Primary Not checking BS and due for A1C. Relevant Orders Hemoglobin A1c Encounter for long-term (current) use of medications Chronic constipation Regular BM and use senna PRN. Relevant Medications Sennosides (Senna) 8.6 MG capsule documented in this encounter [facility] 05-31-2024 Hospital Discharge instructions Patient Education 05/31/2024 [...] bag. Secure the leg bag according to machine set up operator's instructions. This may be above or below [...] on each side. Do this in a [id number] direction. 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 Always make sure there are no twists, [...] provider. Document Revised: 06/02/2022 Document Reviewed: 06/02/2022 [employer] Patient Education 2022 [employer]. Follow Up Care 01/30/2024 11:29:46 With:MÓNICA STEPHENSON, Deven Zimmerman, URL Address: [address] [place] [phone] When: Unknown [facility] 05-31-2024 Note Patient Education Urology Indwelling [...] ? Secure the leg bag according to machine set up operator's instructions. This may be above or below [...] on each side. Do this in a [id number] direction. ? If you are male: ? [...] Clean the drainage bag according to the machine set up operator's instructions or as told by your health [...] to prevent ba (more content not included)... [facility] 04-02-2024 Note [place] Electrophysiology Note Reason for visit: bradycardia 04/02/24 [...] discontinued due to having ER visit with [facility] for complaints of dizziness and was [...] the LAD and diagonal and he underwent RBONSON synergy stents and did well. He had [...] ECG 05/04/2018: Atrial fibrillation, possible old septal AK. ECG 05/28/2018 showed sinus rhythm with 1st degree AV block and PAC. Possible anteroseptal AK. ECG today 03/21/2019: sinus rhythm with 1st [...] morning. oxyCODONE (Roxicod (more content not included)... [facility] 01-30-2024 Evaluation + Plan note [place] [...] Date:05/31/2024 11:00:00 AM Scheduled Provider:Deven BUTLER MD Location:[facility] Appointment Type:URO Office Visit [facility]04-16-2024 Hospital Discharge instructions Patient Education 01/30/2024 [...] Up Care 01/04/2024 13:38:25 With:Deven BUTLER Address: [address] [place], [place] [id number] Business (1) When:05/31/2024 11:24:06 [facility]04-16-2024 Note [id number] NoteCustom Cystoscopy ? Voiding after the [...] if you have a fever over 100 degrees.[facility] 12-26-2023 NoteUT Electrophysiology Note Reason for [...] discontinued due to having ER visit with [facility] for complaints of dizziness and was [...] ECG 05/04/2018: Atrial fibrillation, possible old septal AK. ECG 05/28/2018 showed sinus rhythm with 1st degree AV block and PAC. Possible anteroseptal AK. ECG today 03/21/2019: sinus rhythm with 1st [...] on file Intimate Partner Violence: Unknown (12/07/2023) [place] Safety & Environment Fear of Current or [...] of Systems Constitutional: Pos (more content not included)...[facility]24 Hospital Discharge instructions Patient Education 12/01/2023 [...] nerve stimulation). ?For women, using a medical clinic manager to prevent urine leaks. This is a [...] right after experiencing incontinence. General instructions Take dipo-caw-lqzaecd and prescription medicines only as told by [...] important. Where to find more information National [place] of Diabetes and Digestive and Kidney Diseases: www.niddk.nih.gov [place] [employer]: www.urologyhealth.org Contact a health care [...] provider. Document Revised: 05/07/2021 Document Reviewed: 05/07/2021 [employer] Patient Education 2022 [employer]. Follow Up Care 08/25/2023 10:52:16 With:MÓNICA STEPHENSON, Deven Zimmerman, URL Address: [address] [place], [place] [id number]- When: Unknown [facility] 12-27-2023 NoteStable s/p Dual [facility] NoteStable s/p Dual chamber [facility]PMUnGu[facility]12-27-2023 NotePt presents for 1 week wound check s/p recent [employer] dual PPM implant for SSS/ bradycardia Incision site well approximated, healing well without s/s of infectionUnGuernsey Memorial Hospital12-27-2023 NoteUTP CARDIOLOGY PROGRESS NOTE HPI: [...] PROCEDURE: 10/02/23 PERFORMING PHYSICIAN: Dr. Mike Hilario WINDOWS [employer] ADMINISTRATOR: Dr Lana Powell CONSENT: Patient LOCATION: EP Lab PROCEDURE PERFORMED: 1. Implantation of pacemaker ([employer]) 2. Ultrasound guided venous access INDICATIONS: 1. Sinus node dysfunction. 2. Bradycardia No echocardiogram results found for the past 12 months Assessment/Plan: Cardiac pacemaker in situ Pt presents for 1 week wound check s/p recent [employer] dual PPM implant for SSS/ bradycardia Incision site well approximated, healing well without s/s of infection Sinus node dysfunction (CMS/HCC) Stable s/p Dual chamber PPM Sinus bradycardia Stable s/p Dual chamber PPM RTC 1 month [facility] Note DUAL CHAMBER PACEMAKER IMPLANT PROCEDURE NOTE DATE OF PROCEDURE: 10/02/23 PERFORMING PHYSICIAN: Dr. Mike Hilario WINDOWS [employer] ADMINISTRATOR: Dr Lana Powell CONSENT: Patient LOCATION: EP Lab PROCEDURE PERFORMED: 1. Implantation of pacemaker ([employer]) 2. Ultrasound guided venous access INDICATIONS: [...] discontinued due to having ER visit with [facility] for complaints of dizziness and was [...] using modified seldinger technique using a 5 Brazilian micro-puncture needle on two occasions and 0.35 [...] for the device above the muscle. 6 Brazilian Safesheaths were placed over the wire. An active fixation [employer] pacing lead was then delivered through the 6Fsheath to the right ventricle. After confirmation of lead position on orthogonal views (GRAVES and LOIDA) to confirm septal position, the screw was activated, and the lead was placed in the right ventricular mid cavity towards the septum. After confirmation of good sensing parameters, injury pattern and pacing thresholds, 10V pacing was done and no diaphragmatic stimulation was noted. It was then secured in the pocket using three 1-0 Silk sutures. Then an active fixation [employer] lead was delivered through the 6Fsheath to the right atrial appendage. After confirmation of lead position on orthogonal views (GRAVES and LOIDA), the screw was activated. Good sensing parameters, [...] 5. No driving for (more content not included)...[facility]12-18-2023 NotePatient: Edwin Orourke Procedure Information Date/Time: 10/02/23 1230 Procedure: Pacemaker DC new Location: [facility] / [facility] (Cath) Providers: Mike Hilario MD Clinical information reviewed: Allergies Meds Physical Exam Airway Mallampati: II TM distance: >3 FB Neck ROM: full Cardiovascular Dental Pulmonary Abdominal Anesthesia Plan ASA 2 CSE Anesthetic plan and risks discussed with patient. Use of blood products discussed with patient who. Additional [facility]sUnGuernsey [facility]11-07-2023 Note [place] Electrophysiology Note Reason for visit: bradycardia Date of Telehealth Visit: 08/22/23 The patient was notified that using 3rd alliance party telecommunication application (e.g., iLive) is not HIPPA compliant and may carry some privacy risks. Yes The visit was conducted [id number] with the use of audio and video [...] discontinued due to having ER visit with [facility] for complaints of dizziness and was [...] ECG 05/04/2018: Atrial fibrillation, possible old septal AK. ECG 05/28/2018 showed sinus rhythm with 1st degree AV block and PAC. Possible anteroseptal AK. ECG today 03/21/2019: sinus rhythm with 1st [...] ROS: Cardio Basic Cardiovascular (more content not included)...[facility] 09-05-2022 Evaluation note* Encounter Date Diagnosis [...] care office for follow up on Monday [facility] Other Evaluation + Plan note No data available for this section [facility] evaluation + Plan note Future Appointments Appointment Date:06/21/2024 11:00:00 AM Scheduled Provider: Location:[facility] Appointment Type:URO Nurse Visit [facility] evaluation + Plan note Future Appointments Appointment Date:06/21/2024 11:00:00 AM Scheduled Provider: Location:[facility] Appointment Type:URO Nurse Visit Diagnostic Tests Pending * Urine Culture 05/31/24 [facility] Evaluation + Plan note Future Appointments Appointment Date:07/19/2024 11:00:00 AM Scheduled Provider: Location:[facility] Appointment Type:URO Nurse Visit [facility] evaluation + Plan note Future Appointments Appointment Date:08/16/2024 11:00:00 AM Scheduled Provider: Location:[facility] Appointment Type:URO Nurse Visit [facility] evaluation + Plan note Future Appointments Appointment Date:09/10/2024 11:00:00 AM Scheduled Provider: Location:[facility] Appointment Type:URO Nurse Visit [facility] evaluation + Plan note Future Appointments Appointment Date:10/08/2024 11:40:00 AM Scheduled Provider:LUKAS SAPP PA-C Location:[facility] Appointment Type:URO Office Visit [facility] evaluation + Plan note Future Appointments Appointment Date:11/08/2024 11:20:00 AM Scheduled Provider:LUKAS SAPP PA-C Location:[facility] Appointment Type:URO Office Visit [facility] evaluation noteNo assessment information available [facility] Work Phone: Evaluation note* Diagnosis Type 2 diabetes mellitus with hyperglycemia, without long-term current use of insulin ([facility])- Primary Essential hypertension, benign ([facility]) Essential hypertension, benign Lumbar spondylosis Lumbosacral spondylosis without myelopathy Chronic diastolic heart failure ([facility]) Chronic diastolic heart failure Paroxysmal A-fib ([facility]) Encounter for long-term (current) use of medications Encounter for long-term (current) use of other medications Dyslipidemia ([facility]) Other and unspecified hyperlipidemia 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 ([facility]) Type 2 diabetes mellitus with hyperglycemia, without long-term current use of insulin ([facility])- Primary Essential hypertension, benign ([facility]) Essential hypertension, benign Encounter for long-term (current) use of medications Encounter for long-term (current) use of other medications Chronic constipation Unspecified constipation Lumbar spondylosis Lumbosacral spondylosis without myelopathy Generalized anxiety disorder (CMS/HCC) Generalized anxiety disorder Chronic diastolic heart failure (CMS/HCC) Chronic diastolic heart failure Type 2 diabetes mellitus with diabetic chronic kidney disease (CMS/HCC) Chronic kidney disease, stage 2 (mild) Medicare annual wellness visit, subsequent- Primary Stage 3a chronic kidney disease (HCC) ([facility]) Type 2 diabetes mellitus with diabetic chronic kidney disease (CMS/HCC) [facility] Diagnosis Type 2 diabetes mellitus with hyperglycemia, without long-term current use of insulin (CMS/HCC)- Primary Essential hypertension, benign (CMS/HCC) Essential hypertension, benign Encounter for long-term (current) use of medications Encounter for long-term (current) use of other medications Chronic constipation Unspecified constipation Lumbar spondylosis Lumbosacral spondylosis without myelopathy Generalized anxiety disorder (CMS/HCC) Generalized anxiety disorder Chronic diastolic heart failure (CMS/HCC) Chronic diastolic heart failure Type 2 diabetes mellitus with diabetic chronic kidney disease (HCC) (CMS/HCC) Chronic kidney disease, stage 2 (mild) [facility] this encounter [facility] N[facility]ative - Reported* Type Description Date Medical History diabetes mallitus Medical History high blood pressure Medical History high cholesterol Surgical History b/l knee 2000 [facility] Other Hospital Discharge instructions No data available for this section [facility] Progress note No data available for this section [facility] Summary Purpose Family History No Family [...] section and content) DATE CREATED AUTHOR 06/21/2018 [facility] DATE CREATED AUTHOR AUTHOR'S ORGANIZ ATION 02/23/2023 [facility] DATE CREATED AUTHOR AUTHOR'S ORGANIZ ATION 04/05/2023 [facility] DATE CREATED AUTHOR AUTHOR'S ORGANIZ ATION 05/30/2024 [facility] DATE CREATED AUTHOR AUTHOR'S ORGANIZ ATION 06/03/2024 [place] [facility] DATE CREATED AUTHOR AUTHOR'S ORGANIZ ATION 06/23/2024 [facility] DATE CREATED AUTHOR AUTHOR'S ORGANIZ ATION 08/14/2024 [facility] DATE CREATED AUTHOR AUTHOR'S ORGANIZ ATION 09/07/2024 [facility] DATE CREATED AUTHOR AUTHOR'S ORGANIZ ATION 10/10/2024 [facility] Care Teams (unrecognized sec tion and content) Team Status: Inactive Member Role Status Dates ISAI Davis Attending Provider Active Team Status: Active Member Role Status Dates Ramon Martines MD Primary Care Provider Active Team Status: Inactive Member Role Status Dates Jose Eduardo Murray DO Attending Provider Active Ramon Martines MD Primary Care Provider Active Health Care Liaison Relationship Specialty Start Date End Date Ramon Martines MD [address] [place] [phone] PCP - General Family Medicine 12/13/23 Health Care Liaison Relationship Specialty Start Date End Date Ramon Martines MD [address] [place] [phone] PCP - General Family Medicine 12/13/23 Health Care Liaison Relationship Specialty Start Date End Date Ramon Martines MD [address] [place] [phone] PCP - General Family Medicine 12/13/23 Health Care Liaison Relationship Specialty Start Date End Date Ramon Martines MD [address] [place] [phone] PCP - General Family Medicine 12/13/23 Health Care Liaison Relationship Specialty Start Date End Date Ramon Martines MD [address] [place] [address] PCP - General Family Medicine 12/13/23 Goals [...] Comments Medicare Annual Wellness Visit Subsequen t Reason Comments Follow-up Hospice f/up FOR RECORDS PERTAINING TO PATIENTS WHO ARE [...] BE BASED ON THE PRIMARY CLINICAL RECORDS. [employer] provides no warranty or guarantee of the accuracy or completeness of information in this document.
[2024-10-15 11:50] LABS: Basophils Percent Auto 0.2 % (0.2-2.0); Eosinophils Percent Auto 0.2 % (0.9-7.0); Hematocrit 31.6 % (42.0-54.0); Hemoglobin 10.3 g/dL (14.0-18.0); Immature Granulocytes Abs Auto 0.07 10^3/uL (0.00-0.03); Immature Granulocytes Pct Auto 0.4 % (0.0-0.5); Lymphocytes Absolute Auto 1.1 10^3/uL (1.2-3.8); Lymphocytes Percent Auto 6.3 % (20.5-60.0); Mean Corpuscular HGB Conc 32.6 g/dL (29.9-35.2); Mean Corpuscular Hemoglobin 27.6 pg (25.9-34.0); Mean Corpuscular Volume 84.7 fL (80.0-94.0); Mean Platelet Volume 9.3 fL (9.5-13.5); Monocytes Absolute Auto 1.1 10^3/uL (0.3-0.8); Monocytes Percent Auto 6.7 % (1.7-12.0); Neutrophils Absolute Auto 14.4 10^3/uL (1.4-6.5); Neutrophils Percent Auto 86.2 % (43.0-75.0); Platelet Count 333 10^3/uL (150-450); Red Blood Count 3.73 10^6/uL (4.70-6.10); Red Cell Distribution Width 14.7 % (11.0-15.0); White Blood Count 16.7 10^3/uL (4.0-11.0)
--- NOTE | 2024-10-15 11:50 | ED_ITS ---
HPI - Nausea/Vomiting/Diarrhea General Chief complaint: Nausea/Vomiting/Diarrhea Stated complaint: VOMITING Time Seen by Provider: 10/15/24 11:45 Source: patient Mode of arrival: Wheelchair Limitations: no limitations History of Present Illness HPI Narrative: 89-year-old male presents for 3-day history of nausea and vomiting. No fever or diarrhea or hematemesis. He has not been able to eat or drink much. His gives much of the history and she has not been sick. Related Data Home Medications ?Medication ?Instructions ?Recorded ?Confirmed aspirin 81 mg tablet,delayed 81 mg PO DAILY 03/27/23 10/15/24 release donepezil 10 mg tablet (Aricept) 10 mg PO DAILY 03/27/23 10/15/24 isosorbide mononitrate 60 mg 60 mg PO DAILY 03/27/23 10/15/24 tablet,extended release 24 hr latanoprost 0.005 % eye drops 1 drp ophthalmic (eye) DAILY 03/27/23 10/15/24 lisinopril 20 1 tab PO DAILY 03/27/23 10/15/24 mg-hydrochlorothiazide 25 mg tablet lovastatin 40 mg tablet 40 mg PO DAILY 03/27/23 10/15/24 metformin 500 mg tablet 500 mg PO DAILY 03/27/23 10/15/24 tamsulosin 0.4 mg capsule 0.8 mg PO DAILY 03/27/23 10/15/24 vitamins A,C,O-rapt-syudmr 4,296 2 cap PO DAILY 03/27/23 10/15/24 mcg-226 mg-90 mg capsule (PreserVision AREDS) zinc 50 mg tablet 50 mg PO DAILY 10/13/23 10/15/24 citalopram 10 mg tablet 10 mg PO QAM 10/17/23 10/15/24 hydralazine 50 mg tablet 50 mg PO TID 10/17/23 10/15/24 oxybutynin chloride 15 mg 15 mg PO QDAY 10/17/23 10/15/24 tablet,extended release 24 hr naproxen 500 mg tablet 500 mg PO DAILY PRN pain 10/15/24 10/15/24 sennosides 8.6 mg tablet (senna) 8.6 mg PO TID 10/15/24 10/15/24 Previous Rx's ?Medication ?Instructions ?Recorded sodium chloride 1,000 mg soluble 1,000 mg PO TID #0 tabs 10/17/23 tablet cephalexin 500 mg capsule 500 mg PO TID 7 days #21 caps 10/15/24 ondansetron 4 mg disintegrating 4 mg PO Q6H PRN nausea and 10/15/24 tablet vomiting #20 tabs Allergies Allergy/AdvReac Type Severity Reaction Status Date / Time No Known Drug Allergies Allergy Verified 09/02/24 11:50 Review of Systems ROS Narrative A ten point review of systems is negative except as noted above. [facility] Medical History (Updated 10/15/24 @ 13:59 by Milo Clarke MD) Senile dementia ?F03.90 - Unspecified dementia, unspecified severity, without behavioral disturbance, psychotic disturbance, mood disturbance, and anxiety (ICD-10) CAD (coronary artery disease), [place] coronary artery ?I25.10 - Atherosclerotic heart disease of [place] coronary artery without angina pectoris (ICD-10) Chronic heart failure with preserved ejection fraction (HFpEF) ?I50.32 - Chronic diastolic (congestive) heart failure (ICD-10) Benign essential hypertension ?I10 - Essential (primary) hypertension (ICD-10) Paroxysmal atrial fibrillation ?I48.0 - Paroxysmal atrial fibrillation (ICD-10) Type 2 diabetes mellitus with hyperglycemia ?E11.65 - Type 2 diabetes mellitus with hyperglycemia (ICD-10) Acute hyponatremia ?E87.1 - Hypo-osmolality and hyponatremia (ICD-10) Lumbar stenosis with neurogenic claudication ?M48.062 - Spinal stenosis, lumbar region with neurogenic claudication (ICD- 10) Kidney stone on right side ?N20.0 - Calculus of kidney (ICD-10) Degenerative disc disease Skin cancer ?C44.90 - Unspecified malignant neoplasm of skin, unspecified (ICD-10) Prostate cancer ?C61 - Malignant neoplasm of prostate (ICD-10) Postsurgical cardiac pacemaker in situ ?Z95.0 - Presence of cardiac pacemaker (ICD-10) Surgical History History of cholecystectomy ?Z90.49 - Acquired absence of other specified parts of digestive tract (ICD- 10) History of cataract surgery ?Z98.49 - Cataract extraction status, unspecified eye (ICD-10) History of bilateral knee replacement ?Z96.653 - Presence of artificial knee joint, bilateral (ICD-10) Family History Brother Family history of myocardial infarction Family history of hypertension Family history of diabetes mellitus Mother Family history of hypertension Family history of diabetes mellitus Sister Family history of diabetes mellitus Social History Within the past year, how often did you have a drink containing alcohol: never Score interpretation: A score less than 4 is consistent with normal alcohol consumption. Smoking status: Never smoker Non-prescribed substance use: denies use Previous occupational history: [employer] Known occupational exposures/hazards: No Highest level of school completed/degree received: high school graduate Are you now , , , , never or living with a partner: In a typical week, how many times do you talk on the telephone with family, friends, or neighbors: 3 or more times per week How often do you get together with friends or relatives: 3 or more times per week How often do you attend taoist or quaker services: 4 or more times per year Do you belong to any clubs or organizations such as taoist groups unions, [employer] or athletic groups, or school groups: no Total score: 3 Score interpretation: A score of greater than or equal to 2 indicates the lowest level of social isolation. Little interest or pleasure in doing things: not at all Feeling down, depressed, or hopeless: not at all Feel stressed/tense/nervous/anxious/difficulty sleeping: not at all Do you think of yourself as: straight/heterosexual Gender Identity: male Exam Narrative Exam Narrative: Nurses note and vital signs reviewed and patient is not hypoxic. General: The patient appears in no apparent distress. Patient is resting comfortably on cart. Skin: Warm, dry, no pallor noted. There is no rash noted. Head: Normocephalic, atraumatic Eye: Normal conjunctiva, no drainage Ears, Nose, Mouth, and Throat: oral mucosa is moist. Nares patent. Cardiovascular: Regular Rate and Rhythm Respiratory: Patient is in no distress, no accessory muscle use, lungs are clear to auscultation, no wheezing, rales or rhonchi GI: Soft and nontender Musculoskeletal: The patient has no evidence of calf tenderness, no pitting edema, symmetrical pulses noted bilaterally Neurological: Awake and alert Psychiatric: Cooperative Constitutional Vital Signs, click to edit/add: Last Vital Signs Pulse 75 10/15/24 13:02 Resp 18 10/15/24 13:02 BP 150/80 H 10/15/24 13:02 Pulse Ox 93 L 10/15/24 13:53 O2 Del Method Room Air 10/15/24 13:52 O2 Flow Rate 2 10/15/24 12:20 Course Vital Signs Vital signs: Vital Signs Pulse Rate 76 10/15/24 11:28 Respiratory Rate 18 10/15/24 11:28 Blood Pressure 181/87 H 10/15/24 11:28 Pulse Oximetry 94 L 10/15/24 11:28 Oxygen Delivery Method Room Air 10/15/24 11:28 Pulse Rate 75 10/15/24 13:02 Respiratory Rate 18 10/15/24 13:02 Blood Pressure 150/80 H 10/15/24 13:02 Pulse Oximetry 93 L 10/15/24 13:53 Oxygen Delivery Method Room Air 10/15/24 13:52 Oxygen Delivery Flow Rate 2 10/15/24 12:20 MDM - Nausea/Vomiting/Diarrhea MDM Narrative Medical decision making narrative: Blood work is nonspecific. UA shows mild UTI. Urine culture is pending and he was given IV Rocephin. He was given IV fluids and IV Zofran and feels improved and is able to tolerate p.o. liquids and is able to be discharged home. We discussed admission versus discharge home and the patient feels that he can go home. Treatment diagnosis and follow-up were discussed with the patient and his . Differential Diagnosis Differential diagnosis: Likely food poisoning, gastroenteritis and dehydration Lab Data Attestation: I reviewed the patient's lab results. Labs: Lab Results 10/15/24 Range/Units 11:35 WBC 16.7 H (4.0-11.0) 10^3/uL RBC 3.73 L (4.70-6.10) 10^6/uL Hgb 10.3 L (14.0-18.0) g/dL Hct 31.6 L (42.0-54.0) % MCV 84.7 (80.0-94.0) fL MCH 27.6 (25.9-34.0) pg MCHC 32.6 (29.9-35.2) g/dL RDW 14.7 (11.0-15.0) % Plt Count 333 (150-450) 10^3/uL MPV 9.3 L (9.5-13.5) fL Neut % (Auto) 86.2 H (43.0-75.0) % Lymph % (Auto) 6.3 L (20.5-60.0) % [place] % (Auto) 6.7 (1.7-12.0) % Eos % (Auto) 0.2 L (0.9-7.0) % Baso % (Auto) 0.2 (0.2-2.0) % Neut # (Auto) 14.4 H (1.4-6.5) 10^3/uL Lymph # (Auto) 1.1 L (1.2-3.8) 10^3/uL [place] # (Auto) 1.1 H (0.3-0.8) 10^3/uL Eos # (Auto) 0.0 (0.0-0.7) 10^3/uL Baso # (Auto) 0.0 (0.0-0.1) 10^3/uL Abs Immat Gran (auto) 0.07 H (0.00-0.03) 10^3/uL Imm/Tot Granulo (auto) 0.4 (0.0-0.5) % Sodium 130 L (136-145) mmol/L Potassium 3.5 (3.5-5.1) mmol/L Chloride 90 L (98-107) mmol/L Carbon Dioxide 29.1 (21.0-32.0) mmol/L Anion Gap 14.4 BUN 19.0 H (7.0-18.0) mg/dL Creatinine 1.21 (0.70-1.30) mg/dL Est GFR ( Amer) >60 (>=60 mL/min/1.73m^2) Est GFR (Non-Af Amer) 57 L (>=60 mL/min/1.73m^2) BUN/Creatinine Ratio 15.7 Glucose 176 H (74-106) mg/dL Calcium 8.7 (8.5-10.1) mg/dL Total Bilirubin 0.9 (0.2-1.0) mg/dL Direct Bilirubin 0.2 (0.0-0.2) mg/dL AST 18 (15-37) U/L ALT 17 (16-63) U/L Alkaline Phosphatase 128 H (46-116) U/L Total Protein 7.3 (6.4-8.2) g/dL Albumin 4.0 (3.4-5.0) g/dL Globulin 3.3 g/dL Albumin/Globulin Ratio 1.2 Urine Color Lt. yellow (YELLOW) Urine Clarity Clear (CLEAR) Urine pH 8.5 (5.0-9.0) Ur Specific [place] 1.010 (1.005-1.025) Urine Protein 100 A (NEG/TRACE) mg/dL Urine Glucose (UA) Negative (NEGATIVE) mg/dL Urine Ketones Negative (NEGATIVE) mg/dL Urine Occult Blood Negative (NEGATIVE) Urine Nitrite Positive A (NEGATIVE) Urine Bilirubin Negative (NEGATIVE) Urine Urobilinogen 0.2 (0.2-1.0) EU/dL Ur Leukocyte Esterase Large A (NEGATIVE) Urine RBC None seen (0-2) #/HPF Urine WBC 10-20 A (NONE SEEN) #/HPF Ur Squamous Epith Cells Few A (NONE/RARE) #/LPF Urine Crystals Seen A (None Seen) #/HPF Triple Phos Crystals Moderate Amorphous Sediment Moderate Urine Bacteria Large A (NONE SEEN) #/HPF Urine Mucus Large A (NONE SEEN) Ur Culture Indicated? Yes Discharge Plan Discharge Chief Complaint: Nausea/Vomiting/Diarrhea Clinical Impression: Nausea and vomiting, Urinary tract infection Patient Disposition: Home, Self-Care Time of Disposition Decision: 13:59 Condition: Good Mode of Transportation: Private Vehicle Prescriptions / Home Meds: New cephalexin 500 mg capsule 500 mg PO TID 7 Days Qty: 21 0RF ondansetron 4 mg tablet,disintegrating 4 mg PO Q6H PRN (Reason: nausea and vomiting) Qty: 20 0RF No Action donepezil [Aricept] 10 mg tablet 10 mg PO DAILY Rx Instructions: at bedtime per refill hx from 09/11/23 isosorbide mononitrate 60 mg tablet extended release 24 hr 60 mg PO DAILY lisinopril-hydrochlorothiazide 20-25 mg tablet 1 tab PO DAILY lovastatin 40 mg tablet 40 mg PO DAILY metformin 500 mg tablet 500 mg PO DAILY tamsulosin 0.4 mg capsule 0.8 mg PO DAILY aspirin 81 mg tablet,delayed release (DR/EC) 81 mg PO DAILY PreserVision AREDS 4,296 mcg-226 mg-90 mg capsule 2 cap PO DAILY latanoprost 0.005 % drops 1 drp ophthalmic (eye) DAILY zinc 50 mg tablet 50 mg PO DAILY citalopram 10 mg tablet 10 mg PO QAM hydralazine 50 mg tablet 50 mg PO TID oxybutynin chloride 15 mg tablet extended release 24hr 15 mg PO QDAY Rx Instructions: last filled 09/14/23 per refill hx sodium chloride 1,000 mg Tablet,Soluble 1,000 mg PO TID Qty: 0 0RF sennosides [senna] 8.6 mg tablet 8.6 mg PO TID naproxen 500 mg tablet 500 mg PO DAILY PRN (Reason: pain) Print Language: Qatari Instructions: Acute Nausea and Vomiting (ED), Urinary Tract Infection in Older Adults (ED) Referrals: Ramon Ortiz MD [Primary Care Provider] - 1 week
[2024-10-15] MEDS: ONDANSETRON PF 4 MG/2 ML VIAL IV (12:00)
[2024-10-15] MEDS: 0.9 % SODIUM CHLORIDE 500 ML IV (12:00)
[2024-10-15 12:02] LABS: Bilirubin Urine NEGATIVE (NEGATIVE); Blood Urine NEGATIVE (NEGATIVE); Clarity Urine CLEAR (CLEAR); Color Urine LT. YELLOW (YELLOW); Glucose Urine UA NEGATIVE (NEGATIVE); Ketones Urine NEGATIVE (NEGATIVE); Leukocyte Esterase Urine LARGE (NEGATIVE); Nitrite Urine POSITIVE (NEGATIVE); Protein Urine 100 mg/dL (NEG/TRACE); Urobilinogen Urine 0.2 EU/dL (0.2-1.0); pH Urine 8.5 (5.0-9.0)
[2024-10-15 12:03] LABS: Alanine Aminotransferase 17 U/L (16-63); Albumin Globulin Ratio 1.2; Alkaline Phosphatase 128 U/L (46-116); Anion Gap 14.4; Aspartate Amino Transferase 18 U/L (15-37); BUN Creatinine Ratio 15.7; Bilirubin Direct 0.2 mg/dL (0.0-0.2); Bilirubin Total 0.9 mg/dL (0.2-1.0); Calcium 8.7 mg/dL (8.5-10.1); Carbon Dioxide 29.1 mmol/L (21.0-32.0); Chloride 90 mmol/L (98-107); Estimated GFR (African America >60 (>=60 mL/min/1.73m^2); Estimated GFR (Non-African Ame 57 (>=60 mL/min/1.73m^2); Globulin 3.3 g/dL; Glucose 176 mg/dL (74-106); Potassium 3.5 mmol/L (3.5-5.1); Sodium 130 mmol/L (136-145); Total Protein 7.3 g/dL (6.4-8.2)
[2024-10-15 12:18] VITALS: O2SAT 88
[2024-10-15 12:20] VITALS: O2SAT 98
[2024-10-15 12:28] LABS: Urine Microscopic Indicated YES
[2024-10-15 12:30] LABS: Bacteria Urine LARGE #/HPF (NONE SEEN); Mucus Urine LARGE (NONE SEEN); RBC Urine NONE SEEN #/HPF (0-2); Squamous Epithelial Cell Urine FEW #/LPF (NONE/RARE)
[2024-10-15 12:31] LABS: Amorphous Sediment Urine MODERATE; Crystals Seen? Seen #/HPF (None Seen); Triple Phosphate Crystal Urine MODERATE; Urine Culture Indicated YES
[2024-10-15 13:02] VITALS: BP 150/80; PULSE 75; O2SAT 98
[2024-10-15] MEDS: CEFTRIAXONE 1,000 MG in 0.9 % SODIUM CHLORIDE 50 ML 100 MG IV (13:11)
[2024-10-15 13:52] VITALS: O2SAT 93
[2024-10-15 13:53] VITALS: O2SAT 93
[2024-10-18 08:03] LABS: BOX Test Reference Lab FIRELANDS
== END 2024-10-15 14:18 | disposition home or self-care (01) ==
PROVIDERS: Emergency Provider Emergency Medicine; PCP Family Medicine
DX: N39.0 Urinary tract infection, site not specified (principal); R11.2 Nausea with vomiting, unspecified; Z90.49 Acquired absence of other specified parts of digestive tract; Z96.653 Presence of artificial knee joint, bilateral
CPT/HCPCS: 36415; 80053; 80076; 81001; 85025; 87086; 96365; 96375; 99284; J0696; J2405

== ENCOUNTER 2024-11-16 21:46 | Inpatient (IN) | payer MEDICARE, OTHER, SELFPAY ==
[2024-11-16] VITALS (11 sets, daily range): BP systolic 99–142; BP diastolic 39–64; PULSE 75–79; TEMP 37.1; O2SAT 79–96; BMI 28.7
--- OUTSIDE RECORDS SUMMARY | 2024-11-16 21:50 | XMS_ITS | CCD ---
Author Organization [facility] Care Team Providers Care 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 Name Role Phone PHYSICIAN, DEFAULT Unavailable Unavailable PHYSICIAN, DEFAULT Unavailable Unavailable SNEHA, DARRIN Unavailable Unavailable PHYSICIAN, DEFAULT Unavailable Unavailable PHYSICIAN, DEFAULT Unavailable Unavailable SNEHA, DARRIN Unavailable Unavailable UNKNOWN, PROVIDER Unavailable Unavailable UNKNOWN, PROVIDER Unavailable Unavailable SNEHA, DARRIN Unavailable Unavailable RAMON MARTINES Unavailable Unavailable ISAI Campo Attending Provider Sanaz Campo Unavailable DO Jose Eduardo Murray Attending Provider MD Ramon Martines Primary Care Provider [phone] BOBBI, DR RAMON Chen Primary Care Unavailable NADERER, DR RAMON Chen Consulting Unavailable NADEREElsie, DR RAMON Chen Attending Unavailable NADERER, DR RAMON Chen Admitting Unavailable NADERER, DR RAMON Chen Primary Care Unavailable NADERER, DR RAMON Chen Consulting Unavailable NADERER, DR RAMON Chen Attending Unavailable NADEREElsie, DR RAMON Chen Admitting Unavailable MISC, DR MOORE Admitting Unavailable MISC, DR MOORE Consulting Unavailable MISC, DR MOORE Attending Unavailable NADERER, DR RAMON Chen Primary Care [...] BOBBI, DR RAMON Chen Primary Care Unavailable RAMON MARTINES Primary Care Physician MIKE HILARIO Attending Unavailable HARRY, MIKE Referring Unavailable HARRY, MIKE Attending Unavailable HARRY, MIKE Referring Unavailable HARRY, MIKE Referring Unavailable DASHAЕЛЕНА Noel Attending Unavailable HARRY, MIKE Attending Unavailable HARRY, MIKE Referring Unavailable HARRY, MIKE Attending Unavailable HARRY, MIKE Admitting Unavailable BUTLER, Deven R Attending Unavailable BUTLER, Deven R Attending Unavailable BUTLER, Deven R Attending Unavailable BUTLER, Deven R Attending Unavailable BUTLER, Deven R Attending Unavailable BUTLER, Deven R Admitting Unavailable BUTLER, Deven R Referring Unavailable BUTLER, Deven R Attending Unavailable BUTLER, Deven R Admitting Unavailable Ramon Martines MD Primary Care Provider [phone] Dyana STEPHENSON, Soy Scott Attending Unavailable Katko, Ranjeet Velasco Attending Unavailable Katmegan, Ranjeet Velasco Admitting Unavailable Katko DORanjeet Attending Provider Unavailab chon MARTINES, RAMON Attending Unavailable NADERER, RAMON Attending Unavailable NADEREElsie, RAMON Attending Unavailable NADERER, RAMON Attending Unavailable BUTLER, Deven Zimmerman Attending Unavailable SEKOU, LUKAS Velásquez Attending Unavailable Orzech, Yi Alfonso Attending Unavailable BUTLER, Deven Zimmerman Attending Unavailable BUTLER, Deven Zimmerman Attending Unavailable SEKOU, LUKAS Velásquez Attending Unavailable Orzech, Yi X Attending Unavailable Orzech, Yi X Attending Unavailable Allergies Allergy Classification Reported Allergen(s) Allergy Type Date of Onset Reaction(s) Facility (1 source) 23919,00 Drug allergy (disorder) 11-15-2010 [facility] Repository Medications Current Medications Medication Drug Class(es) Dates Sig (Normalized) Sig (Original) aspirin 81 mg delayed release oral tablet (20 sources) Platelet Aggregation Inhibitor, Nonsteroidal Anti-inflammatory Drug Start: 05-31-2024 take 1 tablet by mouth once daily aspirin 81 mg Oral EC Tab 81 mg = 1 tab(s), Oral, Daily, Refills(s) 0 Start Date: 05/31/24 Status: Ordered Aspirin 81 Activ e citalopram 10 mg oral tablet (20 sources) Serotonin Reuptake Inhibitor Start: 10-18-2024 take 1 tablet by mouth in the morning citalopram (CeleXA) 10 MG tablet Indications: Major depressive disorder, recurrent episode, moderate degree (CMS/HCC) TAKE 1 TABLET BY MOUTH IN THE MORNING 30 tablet 2 10/18/2024 Active Start: 12-01-2023 citalopram 10 mg Tab Refills(s) [...] Ordered donepezil hydrochloride 10 mg oral tablet (20 sources) Start: 10-18-2024 take 1 tablet by mouth at bedtime donepezil (Aricept) 10 MG tablet Indications: Unspecified dementia, unspecified severity, without behavioral disturbance, psychotic disturbance, mood disturbance, and anxiety (CMS/HCC) TAKE 1 TABLET BY MOUTH AT BEDTIME 90 tablet 3 10/18/2024 Active Start: 01-08-2024 donepezil 10 m g Tab 10 mg = 1 tab(s), Refills(s) 0 Start Date: 05/31/24 Status: Ordered Donepezil HCl Ac tive Flonase (2 sources) Corticosteroid Start: 12-01-2023 Flonase mcg, D aily, Refill(s) 0 Start Date: 12/01/23 Status: Ordered gabapentin 300 mg oral capsule (14 sources) Anti-epileptic Agent Start: 12-01-2023 gabapenti n 300 mg Cap Refills(s) 0 Start Date: 12/01/23 Status: Ordered Start: 07-19-2023 take 1 capsule by mo [facility] in the morning gabapentin (Neurontin) 100 MG [...] Start: 01-30-2024 take 1 tablet by kayla three times daily hydrALAZINE (Apresoline) 50 MG tablet Indications: Essential (primary) hypertension (CMS/HCC) TAKE 1 TABLET BY MOUTH THREE TIMES DAILY 90 tablet 5 01/30/2024 Active Start: 12-01-2023 End: 10-25-2024 take 1 mg by mouth four times daily hydrALAZINE 25 mg Tab mg tab(s), Oral, QID, Refills(s) 0 Start Date: 12/01/23 Status: Ordered hydroCHLOROthiazide 25 mg / lisinopril 20 mg oral tablet (20 sources) Thiazide Diuretic, Angiotensin Converting Enzyme Inhibitor Start: 10-18-2024 take 1 tablet by mouth once daily lisinopril-hydroCHLOROthiazide 20-25 MG tablet Indications: Type 2 diabetes mellitus without complications (CMS/HCC) TAKE 1 TABLET BY MOUTH DAILY 90 tablet 3 10/18/2024 Active Start: 12-01-2023 hydrochlorothi azide-lisinopril 25 mg-20 mg Tab Refill(s) 0 Start Date: 12/01/23 Status: Ordered Start: 11-02-2023 take 1 tablet by kayla th once daily lisinopril-hydroCHLOROthiazide 20-25 MG tablet Indications: Type 2 diabetes mellitus without complications (CMS/HCC) TAKE 1 TABLET BY MOUTH DAILY 90 tablet 3 11/02/2023 Active Lisinopril-hydro CHLOROthiazide Active hydrOXYzine hydrochloride 25 mg oral tablet (13 sources) Antihistamine Start: 11-11-2024 take 1 tablet by mouth four times daily as needed for anxiety hydrOXYzine HCl (Atarax) 25 MG tablet Indications: Generalized anxiety disorder (CMS/HCC) TAKE 1 TABLET BY MOUTH FOUR TIMES DAILY NEEDED FOR ANXIETY 60 tablet 2 11/11/2024 Active Start: 09-05-2024 End: 10-25-2024 take 1 tablet by mouth four times daily as needed for anxiety hydrOXYzine HCl (Atarax) 25 MG tablet Indications: Generalized anxiety disorder (CMS/HCC) TAKE 1 TABLET BY MOUTH FOUR TIMES DAILY NEEDED FOR ANXIETY 60 tablet 2 09/05/2024 10/25/2024 Discontinued Start: 08-05-2024 take 1 tablet by kayla th four [...] mononitrate 60 mg extended release oral tablet (20 sources) Nitrate Vasodilator Start: 05-05-2023 isosorbide mononitrate ER (Imdur) 60 MG 24 hr tablet Take 60 mg by mouth. 05/05/2023 Active Isosorbide [place] itrate ER Active latanoprost (10 sources) Prostaglandin Analog Start: 12-01-[address] ophthalmic qPM, Refill(s) 0 Start Date: 12/01/23 Status: Ordered Latanoprost Acti ve Claritin (9 sources) Start: 12-01-2023 Claritin Daily , Refills(s) 0 Start Date: 12/01/23 Status: Ordered lovastatin 40 mg oral tablet (20 sources) HMG-CoA Reductase Inhibitor Start: 12-01-2023 take 1 tablet by mouth once daily lovastatin (Mevacor) 40 MG tablet Indications: Essential (primary) hypertension (CMS/HCC) TAKE 1 TABLET BY MOUTH DAILY 90 tablet 3 01/23/2024 Active Lovastatin Activ e 24 hr metFORMIN hydrochloride 500 mg extended release oral tablet (20 sources) Biguanide Start: 12-13-2023 take 2 tablets [...] for 7 day(s), 85 gm, Refill(s) 0, Frequency #72, 177, cm, 05/31/24 10:47:00 EDT, Height/Length Dosing, 84, kg, 05/31/24 10:47:00 EDT, Weight Dosing Start Date: 08/13/24 Stop Date: 08/20/24 Status: Ordered naproxen 500 mg oral tablet (13 sources) Nonsteroidal Anti-inflammatory Drug take 1 tablet by mouth in the morning naproxen (Naprosyn) 500 MG tablet Take 500 mg by mouth in the morning. Active Naproxen Active omeprazole 40 mg delayed release oral capsule (14 sources) Proton Pump Inhibitor Start: 08-15-2022 take 1 capsule by mouth in the morning omeprazole (PriLOSEC) [address] capsule Take 40 mg by mouth in the morning. 08/15/2022 Active ondansetron 4 mg disintegrating oral tablet (1 source) Serotonin-3 Receptor Antagonist Start: 11-05-2024 take 1 tablet by mouth every six hours for nausea ondansetron ODT (Zofran-ODT) 4 MG disintegrating tablet Indications: Nausea and vomiting, unspecified vomiting type Take 1 tablet (4 mg) by mouth every 6 (six) hours if needed for nausea or vomiting 20 tablet 2 11/05/2024 Active 24 hr oxybutynin chloride 10 mg extended release oral tablet (20 sources) Cholinergic Muscarinic Antagonist Start: 01-30-2024 take 2 tablets by mouth once daily oxybutynin 10 mg ER Tab 20 mg = 2 tab(s), Oral, Daily, # 60 tab(s), Refills(s) 11, Pharmacy: Frequency #72, 177, cm, 01/30/24 11:11:00 EDT, Height/Length Dosing, 85, kg, 02/16/24 9:25:00 EST, Weight Dosing Start Date: 01/30/24 [...] morning. 30 tablet 5 09/14/2023 Active Miralax (20 sources) Osmotic Laxative Start: 12-01-2023 take 1 g by mouth once daily MiraLax gm, Oral, Daily, Refill(s) 0 Start Date: 12/01/23 Status: Ordered Start: 09-16-2022 polyethylene g lycol, PEG, 3350 (Glycolax) 17 GM/SCOOP powder mix 1 (ONE) capful in EIGHT ounces OF liquid and drink DAILY 09/16/2022 Active PreserVision AREDS (1 source) PreserVision ARE DS Active sennosides, pen[facility] 8.6 mg oral capsule (13 sources) Start: 09-16-2024 take 1 capsule by mouth in the morning Sennosides (Senna) 8.6 MG capsule Indications: Chronic constipation Take 1 capsule by mouth in the morning and 1 capsule before bedtime. 60 capsule 5 09/16/2024 Active Start: 03-12-2024 End: 06-04-2024 take 1 capsule by mouth once daily Sennosides (Senna) 8.6 MG capsule Indications: Chronic constipation Take 1 capsule by mouth Daily 30 capsule 5 06/04/2024 Active sodium chloride 1000 mg oral tablet (20 sources) Start: 04-19-2024 End: 04-19-2025 take 1 tablet by mouth three times daily at bedtime sodium chloride 1 g tablet Indications: Hyponatremia TAKE 1 TABLET BY MOUTH THREE TIMES DAILY (IN THE MORNING, IN THE EVENING, and BEFORE bedtime) 90 tablet 5 10/18/2024 Active Start: 12-01-2023 sodium chlorid e 1000 mg oral tablet, soluble Refill(s) 0 Start Date: 12/01/23 Status: Ordered tamsulosin hydrochloride 0.4 mg oral capsule (20 sources) alpha-Adrenergic [place] Start: 07-19-2024 take 2 [...] Problem Classification Problem Date Documented Date Episodic/Chronic Anxiety disorders (16 sources) Generalized anxiety disorder; Translations: [Generalized anxiety disorder] Onset: 12-13-2023 12-13-2023 Chronic Cancer of prostate (12 sources) Personal history of malignant neoplasm of prostate; Translations: [History of malignant neoplasm of prostate] Onset: 12-01-2023 Episodic Cardiac dysrhythmias (17 sources) Unspecified atrial fibrillation; Translations: [Sick sinus syndrome] Onset: 05-29-2018 Chronic Chronic kidney disease (18 sources) Chronic kidney disease stage 3A ; Translations: [Stage 3a chronic kidney disease (HCC)] Onset: 12-13-2023 12-13-2023 Chronic Chronic ulcer of skin (5 sources) Chronic ulcer of buttock; Translations: [Non-pressure chronic ulcer of buttock limited to breakdown of skin] Onset: 10-25-2024 10-25-2024 Chronic Conditions associated with dizziness or vertigo (4 sources) Dizziness and giddiness; Translations: [Benign paroxysmal vertigo, unspecified ear] Onset: 12-26-2022 Episodic Conduction disorders (4 sources) Encounter for adjustment and management of automatic implantable cardiac defibrillator; Translations: [Presence of cardiac pacemaker] Onset: 10-11-2023 Chronic Congestive heart failure; nonhypertensive (16 sources) Chronic diastolic heart failure; Translations: [Chronic diastolic (congestive) heart failure] Onset: 12-13-2023 12-13-2023 Chronic Coronary atherosclerosis and other heart disease (16 sources) Atherosclerotic heart disease of [place] coronary artery with unstable angina pectoris; Translations: [Coronary atherosclerosis] Onset: 05-29-2018 12-13-2023 Chronic Delirium, dementia, and amnestic and other cognitive disorders (16 sources) Alzheimer's disease with late onset; Translations: [Senile dementia] Onset: 12-21-2022 Chronic Diabetes mellitus with complications (20 sources) Type 2 diabetes mellitus with hyperglycemia; Translations: [Hyperglycemia due to type 2 diabetes mellitus] Onset: 09-26-2022 Chronic Diabetes mellitus without complication (11 sources) Type 2 diabetes mellitus without complications; Translations: [Diabetes mellitus] Onset: 05-29-2018 03-02-2020 Chronic Disorders of lipid metabolism (14 sources) Hyperlipidemia, unspecified; Translations: [Dyslipidemia] Onset: 05-29-2018 12-13-2023 Chronic Esophageal disorders (14 sources) Gastro-esophageal reflux disease without esophagitis; Translations: [Gastroesophageal reflux disease] Onset: 05-29-2018 12-13-2023 Chronic Essential hypertension (20 sources) Essential (primary) hypertension; Translations: [Benign essential hypertension] Onset: 05-29-2018 Chronic Genitourinary symptoms and ill-defined conditions (13 sources) Incontinence without sensory awareness; Translations: [Incontinence without sensory awareness] Onset: 12-01-2023 Chronic Genitourinary symptoms and ill-defined conditions (20 sources) History of urinary tract infection; Translations: [Personal history of urinary (tract) infections] Onset: 12-01-2023 Episodic Glaucoma (20 sources) Glaucoma; Translations: [Unspecified glaucoma] Onset: 12-13-2023 03-02-2020 Chronic Hyperplasia of prostate (20 sources) Benign prostatic hypertrophy with outflow obstruction; Translations: [Benign prostatic hyperplasia with lower urinary tract symptoms] Onset: 12-01-2023 Chronic Mood disorders (12 sources) Moderate recurrent major depression; Translations: [Major depressive disorder, recurrent, moderate] Onset: 12-13-2023 12-13-2023 Chronic Osteoarthritis (9 sources) Arthritis 03-02-2020 Chronic Other aftercare (1 source) skilled nursing (current) use of antithrombotics/antip latelets; Translations: [USP (CURRENT) USE OF ANTITHROMBOTICS/ANTIP LATELETS] Onset: 05-29-2018 Episodic Other aftercare (2 sources) watermaster (current) use of aspirin; Translations: [WOOD AND HARDWARE OUTFITTER (CURRENT) USE OF ASPIRIN] Onset: 05-29-2018 Episodic Other aftercare (1 source) Other watermaster (current) drug therapy; Translations: [OTH USP CURRENT DRUG THERAPY] Onset: 12-28-2022 Episodic Other aftercare (1 source) skilled nursing (current) use of oral hypoglycemic drugs; Translations: [WOOD AND HARDWARE OUTFITTER USE ORAL HYPOGLYCEMIC DX] Onset: 12-28-2022 Episodic [...] (9 sources) Hearing loss 03-02-2020 Chronic Other injuries and conditions due to external causes (1 source) Unspecified injury of left wrist, hand and finger(s), initial encounter Episodic Other male genital disorders (9 sources) Impotence 03-02-2020 Chronic Other nervous system disorders (1 source) Unsteadiness on feet; Translations: [UNSTEADINESS ON FEET] Onset: 12-06-2022 Episodic Other upper respiratory disease (12 sources) Allergic rhinitis due to pollen; Translations: [Allergic rhinitis due to pollen] Onset: 12-13-2023 12-13-2023 Chronic Screening or history of mental health and substance abuse (1 source) Personal history of nicotine dependence; Translations: [PERSONAL HISTORY OF NICOTINE DEPENDENCE] Onset: 05-29-2018 Episodic Spondylosis; intervertebral disc disorders; other back problems (20 sources) Spondylosis without myelopathy or radiculopathy, lumbar region; Translations: [Lumbar spondylosis] Onset: 12-06-2022 Chronic Sprains and strains (1 source) Unspecified sprain of left wrist, initial encounter Episodic Unclassified (2 sources) Unknown / UNK(Unknown) Onset: 05-29-2018 Unclassified (1 source) watermaster (current) use of oral hypoglycemic drugs; Translations: [WOOD AND HARDWARE OUTFITTER (CURRENT) USE OF ORAL HYPOGLYCEMIC DRUGS] Onset: 05-29-2018 Unclassified (9 sources) Drug therapy finding 03-02-2020 Past or Other Problems Problem Classification Problem Date Documented Da te Episodic/Chronic Cardiac dysrhythmias (3 sources) Bradycardia, unspecified; Translations: [BRADYCARDIA UNSPECIFIED] Onset: 12-28-2022 Episodic Fluid and electrolyte disorders (12 sources) Hyponatremia; Translations: [Hypo-osmolality and hyponatremia] Onset: 12-25-2023 12-25-2023 Episodic Mood disorders (6 sources) Mood disorders Onset: 08-13-2024 08-13-2024 Other aftercare (7 sources) Long-term current use of drug therapy; Translations: [Other detention (current) drug therapy] Onset: 12-13-2023 12-13-2023 Episodic Other aftercare (7 sources) Patient encounter status; Translations: [Other watermaster (current) drug therapy] Onset: 12-13-2023 12-13-2023 Episodic Other gastrointestinal disorders (13 sources) Chronic constipation; Translations: [Other constipation] Onset: 06-04-2024 06-04-2024 Episodic Results Test Name Value Interpretation Reference Range Facility Urine Cultureon 10-15-2024 Bacteria identified Cx Nom (U) >100,000 colonies/ml mixed bacterial skin contaminants including mixed gram negative bacilli - 2 Days PERFORMED BY: [place] [id number] PATHOLOGIST [employer] BUSINESS TEACHER ANTOINE AHUMADA M.D. Normal [facility] Comment on above: Performed By: #### CUU #### [place] [id number] [facility] Ambulatory Visit Summaryon 1 Ambulatory Visit Summary [...] 11:00 AM EST Where: [facility] [address] [place] [address] [place] [address]- Medications What How Much When Instructions New miconazole topical (miconazole topical 2% powder) 1 Application Topical 2 times a day Duration: 7 Days Pickup at Frequency #72 Unchanged aspirin (aspirin 81 mg Oral [...] (Zinc) By Mouth Every day Pharmacy Information Frequency #72: [address] [place], [place] [id number] [phone] Allergies No Known Allergies Problems Ongoing - [...] for choosing us for your care. Normal [facility] Ambulatory Visit Summaryon 1 Ambulatory Visit Summary [...] 11:00 AM EDT Where: [facility] [place] [id number]- Medications What How Much When Instructions Unchanged [...] you for choosing us for your care. [facility] Ambulatory Visit Summaryon 0 06-21-2024 Ambulatory Visit [...] 11:00 AM EDT Where: [facility] [address] [place] [address]- Medications What How Much When Instructions Unchanged [...] for choosing us for your care. Normal [facility] ALL BASIC METABOLIC PANELon 06-04-2024 Anion gap [Moles/Vol] 8.5 mmol/L [facility] Calcium [Mass/Vol] 9.0 mg/dL 8.5 - 10.1 mg/dL [facility] Chloride [Moles/Vol] 92 mmol/L Low 98 - 107 mmol/L [facility] CO2 [Moles/Vol] 33.6 mmol/L High 21.0 - 32.0 mmol/L [facility] Creatinine [Mass/Vol] 1.23 mg/dL 0.70 - 1.30 mg/dL [facility] GFR/1.73 sq M.predicted CKD-EPI (S/P/Bld) [Vol rate/Area] >60 60 - PINF [facility] Glucose [Mass/Vol] 107 mg/dL High 74 - 106 mg/dL [facility] Interpretation and review of laboratory results Abnormal [facility] Potassium [Moles/Vol] 4.1 mmol/L 3.5 - 5.1 mmol/L [facility] Sodium [Moles/Vol] 130 mmol/L Low 136 - 145 mmol/L [facility] TBH EGFR-NON AF MALIAN 56 Low 60 - [facility] Urea nitrogen [Mass/Vol] 17.0 mg/dL 7.0 - 18.0 mg/dL [facility] Urea nitrogen/Creatin ine [Mass ratio] 13.8 mg/mg [facility] C Urineon 06-02-2024 Bacteria identified Cx [facility] (U) Microbiology PROCEDURE: Urine Culture [R1] SOURCE: [...] was performed at: [facility], [address] [place] [address], [phone] , [place], [facility] Comment on above: Performed By: #### [id number] #### [facility] [address] [place] [address] Urology Office/Clinic Noteon 05-31-2024 Urology Office/Clinic Note Urology Office/Clinic Note Chief Complaint Severe incontinence pt wears a condom catheter [facility] Staff 4 month f/u to cysto/uros done 01/30/24. Last seen IO 12/01/23. Dx: hx of prostate cancer *Brachytherapy ~20yrs ago*, incontinence wo sensory awareness OAB, BPH wiht obstruction, hx of UTI. *Tamsulosin 0.8mg BID and increased Oxybutynin ER 20mg qd May 24 pt had blood in his urine and was taken to the [facility] ED and was started on Cefdinir 300mg [...] Bladder: condom catheter. Assessment/Plan Residing at [facility]. Pt accompanied by . 1. Gross hematuria (R31.0: Gross hematuria) Pt presented to [facility] ER 05/24/24 with gross hematuria. Started on [...] urination, but after he went to the [facility] on 10/17/23 the catheter was removed within a week of being there due to his urine having pus and thought he needed treatment for UTI. Treated with antibiotic but does not know which one. reports pt has back issues. States the reason he is at [facility] is due to the inability to walk. [...] Contact Information Deven BUTLER MD, URL [address] [place] [address]- Additional Instructions: Catheter change in 4 weeks Patient Education Indwelling Urinary Catheter Care, Adult I, Shena Taylor, personally scribed for (more content not included)... Normal [facility] Comment on above: Result Comment: Electronically Signed By : Deven BUTLER MD\.br\Date and Time Signed: 05/31/24 11:13 EDT\.br\Electronically Co-Signed By: Shena Taylor\.br\Date and Time Co-Signed: 05/31/24 11:02 EDT\.br\Electronically Co-Signed By: Shena Taylor\.br\Date and Time Co-Signed: 05/31/24 11:07 EDT Office Visiton 04-02-2024 Follow-up visit [id number] Edwin Orourke 1935 Date Provider Department Center 04/02/2024 MIKE CASTILLO [facility] No family history on file Level of Service:[address] [place] OFFICE/OUTPATIENT ESTABLISHED LOW MDM 20 MIN Normal [facility] Consent for Procedure/Surger yon 01-30-2024 Consent for Procedure/Surger y [id number]#1.00TIFF Normal [facility] Consent for Treatmenton 01-14 Consent for Treatment [id number]#1.00TIFF [facility] IntraOperative Documentson 0 01-30-2024 IntraOperative Documents [id number]#1.00TIFF [facility] IntraOperative Documents [id number]#1.00TIFF Quinten [facility] Main OR Intraoperative Recor don 01-30-2024 Main OR Intraoperative Record IntraOp Document Type FTURO Summary Primary Physician: Deven BUTLER MD Finalized Date/Time: 01/30/24 11:23:13 Pt. Name: EDWIN OROURKE /Sex: 1935 Male Med Rec #: [id number] Physician: Deven BUTLER MD Financial #: [id number] Pt. Type: O Room/Bed: / Admit/Disch: 01/30/24 [...] Priscilla Enciso Role Performed Surgeon - Primary Braiding Machine Tender - Primary Scrub - Primary Time In [...] Outcomes Met? Yes Last Modified By: MARKEL Slo RN, Ruthann 01/30/24 11:22:46 Post-Care Text: The [...] MARKEL Sol RN, Ruthann 01/30/24 11:23 Normal [facility] Main OR Preoperative Recordo n 01-30-2024 Main OR Preoperative Record Holding Area Document Type FTURO Summary Primary Physician: Deven BULTER MD Finalized Date/Time: 01/30/24 11:20:16 Pt. Name: MYRON OROURKEFRIEDA Zimmerman D.O.B./Sex: 1935 Male Med Rec #: [id number] Physician: Deven BUTLER MD Financial #: [id number] Pt. Type: O Room/Bed: / Admit/Disch: 01/30/24 09:23:33 - Institution: Case Times Holding FTURO Pre-Care Text: Verifies consent for planned procedure, identifies individual values and wishes concerning care, includes family members in perioperative teaching Secures patient's records' belongings, and valuables, maintains patient's dignity and privacy, and maintains patient confidentiality Entry 1 In Holding 01/30/24 11:07:00 Outcomes Met? Yes Last Modified By: Jaylene Catsillo RN 01/30/24 11:07:29 Post-Care Text: The patient [...] Complaints of Pain: Yes Pain Comment: BACK 610 Skin Integrity Dry, Warm Vitals - EU Blood Pressure 190/85 Pulse 75 bpm Respirations 16 br/min SPO2 97 % Additional None RN Reviewed Yes Specimens Collected Last Modified By: Jaylene Castillo RN 01/30/24 11:10:30 Finalized By: Jaylene Castillo RN Document Signatures Signed By: Jaylene Castillo RN 01/30/24 11:10 Jaylene Castillo RN 01/30/24 11:11 Jaylene Castillo RN 01/30/24 11:20 Normal [facility] Operative Reporton Operative Report Patient: [...] oxybutynin ER to 20 mg daily. Normal [facility] Comment on above: Result Comment: Electronically Signed By : Deven BUTLER MD\.br\Date and Time Signed: 01/30/24 11:30 EDT Outpatient Surgery Discharge Instructionon 01-30-2024 Outpatient Surgery Discharge Instruction [id number]#1.00TIFF Normal [facility] Progress Note-Physicianon Progress Note-Physician Patient: EDWIN OROURKE Age: 89 years Sex: Male : 1935 Associated Diagnoses: None Author: MÓNICA STEPHENSON, Deven Dowling X this gentleman has urinary urge incontinence [...] list: All Problems Arthritis / SNOMED CT 3107968 / Confirmed History of prostate cancer / SNOMED CT 2396845259 / Confirmed Deafness / SNOMED CT 75249702 / Confirmed Diabetes / SNOMED CT 282445623 / Confirmed Glaucoma / SNOMED CT 47301306 / Confirmed Heart disease / SNOMED CT 49733101 / Confirmed Erectile dysfunction / SNOMED CT 4903954615 / Confirmed BPH with urinary obstruction / SNOMED CT 5335120117 / Confirmed Anticoagulated / SNOMED CT 427199273 / Confirmed OAB (overactive bladder) / SNOMED CT 0681469001 / Confirmed Incontinence without sensory awareness / SNOMED CT 8018186041 / Confirmed History of UTI / SNOMED CT 8430259964 / Confirmed Histories Past Medical History: No active or resolved past medical history items have been selected or recorded. Family History: Procedure history: Appendectomy (095722672). CE - Cataract extraction (8094305356). Placement of stent in cardiac conduit (2676678253). Arthroplasty of knee bilateral (74346343). Implantation of radioactive seed into prostate (1452423373). Social History Social & Psychosocial Habits Alcohol [...] reevaluate in 4 months. Normal [facility] Comment on above: Result Comment: Electronically Signed By : MÓNICA STEPHENSON, Deven Lyons.idalia\Date and Time Signed: 01/30/24 11:35 EDT Office Visiton 12-26-2023 Follow-up visit [id number] Edwin Orourke 1935 M Date Provider Department Center 12/26/2023 Jose Juan-MIKE HILARIO CARD [facility] No family history on file Level of Service:19683 [place] OFFICE/OUTPATIENT ESTABLISHED LOW MDM 20 MIN Normal [facility] Ambulatory Visit Summaryon 0 12-01-2023 Ambulatory Visit Summary EDWIN OROURKE :1935 Visit Date:12/01/2023 Ambulatory Visit Instructions Your Diagnosis History of prostate cancer Incontinence without sensory awareness OAB (overactive bladder) BPH with urinary obstruction History of UTI Your Care Team Attending Physician - Deven BUTLER MD Primary Care Physician - RAMON MARTINES MD [...] MÓNICA STEPHENSON, Deven Zimmerman, URL When: Where: [address] [place] [address]- Medications What How Much When Instructions Unchanged [...] uterus. ? (more content not included)... Normal [facility] Home Recordson 12-01 Fdc Records [id number]#1.00TIFF Normal [facility] Fdc Records [id number]#1.00TIFF Normal [facility] Patient Educationon 12-01-19 Patient Education Urology Urinary [...] stimulation). ? For women, using a medical support assistant to prevent urine leaks. This is a [...] urine. ? (more content not included)... Normal [facility] Urology Office/Clinic Noteon 12-01-2023 Urology [...] urination but after he went to the [facility] on 10/17/23 the catheter was removed within [...] here with his today. Residing at [facility]. 1. History of prostate cancer (Z85.46: Personal history of malignant neoplasm of prostate) PSA: 02/06/20 - <0.05 Latest PSA on file. S/p brachytherapy approx. 20 years ago. 2. Incontinence without sensory awareness (N39.42: Incontinence without sensory awareness) Reports he had a catheter placed in the hospital at the end of 09/2023 due to uncontrolled urination, but after he went to the [facility] on 10/17/23 the catheter was removed within [...] had a bowel movement in several days. [place] staff has been providing pt with laxatives. reports pt has back issues. States the reason he is at [facility] is due to the inability to walk. [...] When Contact Information MÓNICA STEPHENSON, Deven Zimmerman, [address] [address]- Additional Instructions: Scheduling cysto and uro's Patient Education Urinary Incontinence I, Shena Taylor, personally scribed for Dr. Butler on 12/01/2023 10:07:45. Elect (more content not included)... [facility] Comment on above: Result Comment: Electronically Signed By : Deven BUTLER MD\.br\Date and Time Signed: 12/01/23 10:12 EST\.br\Electronically Co-Signed By: Shena Taylor\.br\Date and Time Co-Signed: 12/01/23 10:08 EST Lab Reportson 10-18-2023 Lab Reports [id number]#1.00TIFF [facility] Lab Reportson 10-17-2023 Lab Reports [id number]#1.00TIFF [facility] Lab Reports [id number]#1.00TIFF [facility] Lab Reports [id number]#1.00TIFF [facility] Lab Reports [id number]#1.00TIFF [facility] Lab Reports [id number]#1.00TIFF Normal [facility] Lab Reports [id number]#1.00TIFF Normal [facility] Lab Reports [id number]#1.00TIFF Normal [facility] Lab Reports [id number]#1.00TIFF Normal [facility] Lab Reports [id number]#1.00TIFF Normal [facility] Office Visiton 10-11-2023 Follow-up visit [id number] HavenMyronEdwin R 1935 M Date Provider Department Center 10/11/2023 ЕЛЕНА SALMON [facility] No family history on file Level of Service:90271 [place] POSTOP FOLLOW UP VISIT RELATED TO ORIGINAL PX Normal [facility] HPon 10-02-2023 [facility] Electrophysiology Note Reason for visit: bradycardia [...] discontinued due to having ER visit with [facility] for complaints of dizziness and was [...] ECG 05/04/2018: Atrial fibrillation, possible old septal TX. ECG 05/28/2018 showed sinus rhythm with 1st degree AV block and PAC. Possible anteroseptal TX. ECG today 03/21/2019: sinus rhythm with 1st [...] alcohol abuse, Hematolog (more content not included)... [facility] NURSNOTEon 10-02-2023 NURSNOTE RN educated pt on d/ c instructions. RN encouraged pt to voice any questions or concerns. Pt verbalizes no questions or concerns at this time. Pt was wheeled off of unit with all of belongings. [facility] NURSNOTE CHG wipes and betadi ne nasal swabs completed. [facility] Orders Onlyon 10-02-2023 Orders Only [id number] Edwin Orourke 1935 M Date Provider Department Center 10/02/2023 EMETERIO GONZALEZ [facility] No family history on file Normal [facility] Orders Onlyon 09-25-2023 Orders Only [id number] Edwin Oruorke 1935 M Date Provider Department Center 09/25/2023 EMETERIO GONZALEZ [facility] No family history on file Normal [facility] Telemedicineon 08-22-2023 Telemedicine [id number] Edwin Orourke R 1935 M Date Provider Department Center 08/22/2023 MIKE CASTILLO [facility] No family history on file Level of Service:[address]20 [place] PHYS/QHP TELEPHONE EVALUATION 11-20 MIN Normal [facility] 36on 07-27-2023 36 No vm Normal [facility] PROF CHEM 8 (BAS METB)on Anion gap [Moles/Vol] 10.7 mmol/L Normal [facility] Comment on above: Performed By: #### TSH #### [facility] [address] [address] [address] Yue Vega Calcium [Mass/Vol] 9.4 mg/dL Normal 8.5-10.1 [facility] Comment on above: Performed By: #### TSH #### [facility] [address] [address] [address] Yue Vega Chloride [Moles/Vol] 97 mmol/L Critically low 98-107 [facility] Comment on above: Performed By: #### TSH #### [facility] [address] [address] [address] Yue Vega CO2 [Moles/Vol] 31.8 mmol/L Normal 21.0-32.0 [facility] Comment on above: Performed By: #### TSH #### [facility] [address] [address] [address] Yue Vega Creatinine [Mass/Vol] 1.23 mg/dL Normal 0.70-1.30 [facility] Comment on above: Performed By: #### TSH #### [facility] [address] [address] [address] Yue Vega EGFR-AF MALIAN >60 Normal >=60 [facility] Comment on above: Performed By: #### TSH #### [facility] [address] [address] [address] Yue Vega EGFR-NON AF MALIAN 56 mL/min/1.73m2 Critically low >=60 [facility] Comment on above: Performed By: #### TSH #### [facility] [address] [address] [address] Yue Vega Glucose [Mass/Vol] 153 mg/dL Critically high 74-106 [facility] Comment on above: Performed By: #### TSH #### [facility] [address] [address] [address] Yue Vega Potassium [Moles/Vol] 4.5 mmol/L Normal 3.5-5.1 [facility] Comment on above: Performed By: #### TSH #### [facility] [address] [address] [address] Yue Vega Sodium [Moles/Vol] 135 mmol/L Critically low 136-145 [facility] Comment on above: Performed By: #### TSH #### [facility] [address] [address] [address] Yue Vega Urea nitrogen [Mass/Vol] 22.0 mg/dL Critically high 7.0-18.0 [facility] Comment on above: Performed By: #### TSH #### [facility] [address] [address] [address] Yue Vega Urea nitrogen/Creatin ine [Mass ratio] 17.9 mg/mg Normal [facility] Comment on above: Performed By: #### TSH #### [facility] [address] [address] [address] Yue Vega Creatinine (Bld) [Mass/Vol]O rdered By: Suzi Murray on 01-06-2023 Creatinine [Mass/Vol] 1.2 mg/dL 0.6-1.3 [facility] Comment on above: ER/ESD physician is notified/shown all I STAT results.Critical values may be confirmed by laboratory testing ifdeemed necessary by ER attending doctor. BNPon 12-26-2022 Natriuretic peptide B (Bld) [Mass/Vol] 483.0 pg/mL Normal <=1,800.0 [facility] Comment on above: Performed By: #### TSH #### [facility] [address] [address] [address] Yue Vega CARDIAC MAMTA ADMITon 023 CK [Catalytic activity/Vol] 121 U/L Normal 39-308 [facility] Comment on above: Performed By: #### TSH #### [facility] [address] [place] [address] Dr. Yue Vega CK.MB [Mass/Vol] 1.73 ng/mL Normal <=3.60 [facility] Comment on above: Performed By: #### TSH #### [facility] [address] [address] [address] Yue Vega HSTROP 11.9 pg/mL Normal 4.0-76.1 [facility] Comment on above: Result Comment: CUT-OFF POINTS HAVE BEEN ESTABLISHED BASED ON THE FOURTH UNIVERSAL DEFINITIONS OF MYOCARDIAL INFARCTION. THE UPPER REFERENCE LIMIT (URL) OF TROPONIN, DEFINED THE 99TH PERCENTILE OF cTnI DISTRIBUTION IN A REFERENCE POPULATION, HAS BEEN CONFIRMED THE DECISION THRESHOLD FOR TX DIAGNOSIS. Performed By: #### T SH #### [facility] [address] [address] [address] Yue Vega CARI 113 ng/mL Critically high 16-96 [facility] Comment on above: Performed By: #### TSH #### [facility] [address] [address] [address] Yue Vega CBC AUTO DIFFon 12-26-2022 BASO # 0.1 103/ul Normal 0.0-0.1 [facility] Comment on above: Performed By: #### TSH #### [facility] [address] [address] [address] Yue Vega Basophils/100 WBC (Bld) 0.5 % Normal 0.2-2.0 [facility] Comment on above: Performed By: #### TSH #### [facility] [address] [address] [address] Yue Vega EO # 0.0 103/ul Normal 0.0-0.7 [facility] Comment on above: Performed By: #### TSH #### [facility] [address] [place] [address] Dr. Yue Vega Eosinophils/100 WBC (Bld) 0.3 % Critically low 0.9-7.0 [facility] Comment on above: Performed By: #### TSH #### [facility] [address] [address] [address] Yue Vega Erythrocyte distribution width (RBC) [Ratio] 12.4 % Normal 11.0-15.0 [facility] Comment on above: Performed By: #### TSH #### [facility] [address] [place] [address] Dr. Yue Vega Hematocrit (Bld) [Volume fraction] 42.7 % Normal 42.0-54.0 [facility] Comment on above: Performed By: #### TSH #### [facility] [address] [place] [address] Dr. Yue Vega Hemoglobin (Bld) [Mass/Vol] 14.5 g/dL Normal 14.0-18.0 [facility] Comment on above: Performed By: #### TSH #### [facility] [address] [place] [address] Dr. Yue Vega IG # 0.05 10e3/ul Critically high 0.00-0.03 [facility] Comment on above: Performed By: #### TSH #### [facility] [address] [address] [address] Yue Vega IG % 0.4 % Normal 0.0-0.5 [facility] Comment on above: Performed By: #### TSH #### [facility] [address] [place] [address] Dr. Yue Vega LYMPH # 1.4 103/ul Normal 1.2-3.8 [facility] Comment on above: Performed By: #### TSH #### [facility] [address] [place] [address] Dr. Yue Vega Lymphocytes/100 WBC (Bld) 10.7 % Critically low 20.5-60.0 [facility] Comment on above: Performed By: #### TSH #### [facility] [address] [place] [address] Dr. Yue Vega MANUAL DIFF REQ NO Normal [facility] Comment on above: Performed By: #### TSH #### [facility] [address] [place] [address] Dr. Yue Vega MCH (RBC) [Entitic mass] 30.7 pg Normal 25.9-34.0 [facility] Comment on above: Performed By: #### TSH #### [facility] [address] [place] [address] Dr. Yue Vega MCHC (RBC) [Mass/Vol] 34.0 g/dL Normal 29.9-35.2 [facility] Comment on above: Performed By: #### TSH #### [facility] [address] [place] [address] Dr. Yue Vega MCV (RBC) [Entitic vol] 90.3 fL Normal 80.0-94.0 [facility] Comment on above: Performed By: #### TSH #### [facility] [address] [place] [address] Dr. Yeu Vega MONO # 0.5 103/ul Normal 0.3-0.8 [facility] Comment on above: Performed By: #### TSH #### [facility] [address] [place] [address] Dr. Yue Vega Monocytes/100 WBC (Bld) 4.2 % Normal 1.7-12.0 [facility] Comment on above: Performed By: #### TSH #### [facility] [address] [place] [address] Dr. Yue Vega NEUT # 10.8 103/ul Critically high 1.4-6.5 [facility] Comment on above: Performed By: #### TSH #### [facility] [address] [address] [address] Yue Vega Neutrophils/100 WBC (Bld) 83.9 % Critically high 43.0-75.0 [facility] Comment on above: Performed By: #### TSH #### [facility] [address] [place] [address] Dr. Yue Vega Platelet mean volume (Bld) [Entitic vol] 9.6 fL Normal 9.5-13.5 [facility] Comment on above: Performed By: #### TSH #### [facility] [address] [place] [address] Dr. Yue Vega PLT 223 103/ul Normal 150-450 [facility] Comment on above: Performed By: #### TSH #### [facility] [address] [place] [address] Dr. Yue Vega RBC 4.73 106/ul Normal 4.70-6.10 [facility] Comment on above: Performed By: #### TSH #### [facility] [address] [place] [address] Dr. Yue Vega WBC 12.9 103/ul Critically high 4.0-11.0 [facility] Comment on above: Performed By: #### TSH #### [facility] [address] [place] [address] HEAD WO CONon [...] SUZI NANCE Date: 2022-12-26 14:21 Normal [facility] ER URINE PROFILEon 3 Bilirubin Ql (U) Negative Normal NEGATIVE [facility] Comment on above: Performed By: #### YAMIL UMICRO #### [facility] [address] [place] [address] Dr. Yue Vega Clarity (U) CLEAR Normal CLEAR [facility] Comment on above: Performed By: #### YAMIL UMMELVINRO #### [facility] [address] [place] [address] Dr. Yue Vega Color (U) LT. YELLOW Normal YELLOW [facility] Comment on above: Performed By: #### SERG LOBORO #### [facility] [address] [place] [address] Dr. Yue ALCOCER A micrscopic examina tion will be performed if indicated. Normal [facility] Comment on above: Performed By: #### YAMIL UMMELVINRO #### [facility] [address] [address] [address] Yue Vega Glucose Ql (U) 250 mg/dl Abnormal NEGATIVE [facility] Comment on above: Performed By: #### SERG LOBORO #### [facility] [address] [place] [address] Dr. Yue Vega Hemoglobin Ql (U) Negative Normal NEGATIVE [facility] Comment on above: Performed By: #### YAMIL UMMELVINRO #### [facility] [address] [place] [address] Dr. Yue Vega Ketones Ql (U) Negative Normal NEGATIVE [facility] Comment on above: Performed By: #### YAMIL UMMELVINRO #### [facility] [address] [place] [address] Dr. Yue Vega LEUKOCYTES Negative Normal NEGATIVE [facility] Comment on above: Performed By: #### ERUR, UMICRO #### [facility] [address] [address] [address] Yue Vega Nitrite Ql (U) Negative Normal NEGATIVE [facility] Comment on above: Performed By: #### ERUR, UMICRO #### [facility] [address] [address] [address] Yue Vega pH (U) 7.0 [pH] Normal 5-9 [facility] Comment on above: Performed By: #### ERUR, UMICRO #### [facility] [address] [address] [address] Yue Vega Protein (U) [Mass/Vol] 30 mg/dL Abnormal NEGATIVE/ TRACE [facility] Comment on above: Performed By: #### YAMIL, UMICRO #### [facility] [address] [place] [address] Dr. Yue Vega SPEC GRAVITY 1.015 Normal 1.005-<=1. 025 [facility] Comment on above: Performed By: #### YAMIL UMICRO #### [facility] [address] [address] [address] Yue Vega UR MICRO IND INDICATED Normal [facility] Comment on above: Performed By: #### ERUElsie, UMICRO #### [facility] [address] [place] [address] Dr. Yue Vega Urobilinogen Qn (U) 0.2 {Anat'U}/dL Normal 0.2 - 1.0 [facility] Comment on above: Performed By: #### ERUElsie, UMICRO #### [facility] [address] [address] [address] Yue Vega PROF 14(COMP METB)on 023 Albumin [Mass/Vol] 4.1 g/dL Normal 3.4-5.0 [facility] Comment on above: Performed By: #### TSH #### [facility] [address] [place] [address] Dr. Yue Vega Albumin/Globulin [Mass ratio] 1.1 {ratio} Normal [facility] Comment on above: Performed By: #### TSH #### [facility] [address] [address] [address] Yue Vega ALP [Catalytic activity/Vol] 110 U/L Normal 46-116 [facility] Comment on above: Performed By: #### TSH #### [facility] [address] [address] [address] Yue Vega ALT [Catalytic activity/Vol] 24 U/L Normal 16-63 [facility] Comment on above: Performed By: #### TSH #### [facility] [address] [address] [address] Yue Vega Anion gap [Moles/Vol] 9.5 mmol/L Normal [facility] Comment on above: Performed By: #### TSH #### [facility] [address] [place] [address] Dr. Yue Vega AST [Catalytic activity/Vol] 25 U/L Normal 15-37 [facility] Comment on above: Performed By: #### TSH #### [facility] [address] [place] [address] Dr. Yue Vega Bilirubin [Mass/Vol] 1.2 mg/dL Critically high 0.2-1.0 [facility] Comment on above: Performed By: #### TSH #### [facility] [address] [place] [address] Dr. Yue Vega Calcium [Mass/Vol] 9.3 mg/dL Normal 8.5-10.1 [facility] Comment on above: Performed By: #### TSH #### [facility] [address] [place] [address] Dr. Yue Vega Chloride [Moles/Vol] 96 mmol/L Critically low 98-107 [facility] Comment on above: Performed By: #### TSH #### [facility] [address] [place] [address] Dr. Yue Vega CO2 [Moles/Vol] 29.4 mmol/L Normal 21.0-32.0 [facility] Comment on above: Performed By: #### TSH #### [facility] [address] [address] [address] Yue Vega Creatinine [Mass/Vol] 1.09 mg/dL Normal 0.70-1.30 [facility] Comment on above: Performed By: #### TSH #### [facility] [address] [address] [address] Yue Vega EGFR-AF MALIAN >60 Normal >=60 [facility] Comment on above: Performed By: #### TSH #### [facility] [address] [address] [address] Yue Vega EGFR-NON AF MALIAN >60 Normal >=60 [facility] Comment on above: Performed By: #### TSH #### [facility] [address] [address] [address] Yue Vega Globulin (S) [Mass/Vol] 3.8 g/dL Normal [facility] Comment on above: Performed By: #### TSH #### [facility] [address] [address] [address] Yue Vega Glucose [Mass/Vol] 218 mg/dL Critically high 74-106 [facility] Comment on above: Performed By: #### TSH #### [facility] [address] [place] [address] Dr. Yue Vega Potassium [Moles/Vol] 3.9 mmol/L Normal 3.5-5.1 [facility] Comment on above: Performed By: #### TSH #### [facility] [address] [place] [address] Dr. Yue Vega Protein [Mass/Vol] 7.9 g/dL Normal 6.4-8.2 [facility] Comment on above: Performed By: #### TSH #### [facility] [address] [place] [address] Dr. Yue Vega Sodium [Moles/Vol] 131 mmol/L Critically low 136-145 [facility] Comment on above: Performed By: #### TSH #### [facility] [address] [address] [address] Yue Vega Urea nitrogen [Mass/Vol] 19.0 mg/dL Critically high 7.0-18.0 [facility] Comment on above: Performed By: #### TSH #### [facility] [address] [place] [address] Dr. Yue Vega Urea nitrogen/Creatin ine [Mass ratio] 17.4 mg/mg Normal [facility] Comment on above: Performed By: #### TSH #### [facility] [address] [place] [address] Dr. Yue Vega PROTIMEon 12-26-2022 INR Coag (PPP) [Relative time] 1.00 {INR} Normal [facility] Comment on above: Performed By: #### PTT, PT #### [facility] [address] [place] [address] Dr. Yue Vega INR GUIDELINES SEE BELOW Normal [facility] Comment on above: Result Comment: DESIRED INR: 2.0 - 3.0 C ONDITIONS NOT LISTED BELOW 2.5 - 3.5 FOR PROSTHETIC HEART VALVE REPLACEMENT 2.5 - 3.5 RECURRENT THROMBOSIS Performed By: #### P TT, PT #### [facility] [address] [place] [address] Dr. Yue Vega PT Coag (PPP) [Time] 10.6 s Normal 9.0-11.6 [facility] Comment on above: Performed By: #### PTT, PT #### [facility] [address] [place] [address] Dr. Yue Vega PTTon 12-26-2022 aPTT Coag (Bld) [Time] 29.8 s Normal 22.3-36.2 [facility] Comment on above: Performed By: #### PTT, PT #### [facility] [address] [place] [address] Dr. Yue Vega TSHon 12-26-2022 TSH 2.693 uIU/mL Normal 0.358-3.[address] [facility] Comment on above: Performed By: #### TSH #### [facility] [address] [place] [address] Dr. Yue Vega URINE MICROSCOPIC ONLYon BACTERIA NONE SEEN Normal NONE SEEN [facility] Comment on above: Performed By: #### ERUR, UMICRO #### [facility] [address] [place] [address] Dr. Yue Vega Bacteria identified Cx Nom (U) NOT INDICATED Normal [facility] Comment on above: Performed By: #### ERUR, UMICRO #### [facility] [address] [place] [address] Dr. Yue Vega CAST NONE SEEN Normal NONE SEEN [facility] Comment on above: Performed By: #### ERUR, UMICRO #### [facility] [address] [place] [address] Dr. Yue Vega Crystals LM Nom (Urine sed) NONE SEEN Normal NONE SEEN [facility] Comment on above: Performed By: #### ERUR, UMICRO #### [facility] [address] [place] [address] Dr. Yue Vega Epithelial cells LM Ql (Urine sed) NONE SEEN Normal NONE SEEN /RARE [facility] Comment on above: Performed By: #### YAMIL UMICRO #### [facility] [address] [place] [address] Dr. Yue Vega MUCOUS NONE SEEN Normal NONE SEEN [facility] Comment on above: Performed By: #### ERUR UMICRO #### [facility] [address] [place] [address] Dr. Yue Vega RBC 0-2 Normal 0-2 [facility] Comment on above: Performed By: #### YAMIL UMICRO #### [facility] [address] [place] [address] Dr. Yue Vega WBC NONE SEEN Normal NONE SEEN [facility] Comment on above: Performed By: #### YAMIL UMICRO #### [facility] [address] [place] [address] Dr. Yue Vega XR CHEST 1 Von [...] SAYRA GUILLAUME Date: 2022-12-26 13:12 Normal [facility] METHYLMALONIC ACID (MMA)on 0 12-25-2022 Methylmalonic Acid, Serum 180 nmol/L Normal 0-378 [facility] Comment on above: Performed By: #### MMA2 #### [facility] [address] [place] [address] Dr. Yue Vega TSHon 12-21-2022 TSH 2.790 uIU/mL Normal 0.358-3.[address] [facility] Comment on above: Performed By: #### TSH #### [facility] [address] [place] [address] Dr. Yue Vega VITAMIN B12on 12-21-2022 Cobalamin (Vitamin B12) [Mass/Vol] 919.0 pg/mL Normal 193.0-986. 0 [facility] Comment on above: Performed By: #### TSH #### [facility] [address] [place] [address] Dr. Yue Vega CBC AUTO DIFFon 09-26-2022 BASO # 0.1 103/ul Normal 0.0-0.1 [facility] Comment on above: Performed By: #### CBC #### [facility] [address] [place] [address] Dr. Yue Vega Basophils/100 WBC (Bld) 0.5 % Normal 0.2-2.0 [facility] Comment on above: Performed By: #### CBC #### [facility] [address] [place] [address] Dr. Yue Vega EO # 0.2 103/ul Normal 0.0-0.7 [facility] Comment on above: Performed By: #### CBC #### [facility] [address] [place] [address] Dr. Yue Vega Eosinophils/100 WBC (Bld) 2.1 % Normal 0.9-7.0 [facility] Comment on above: Performed By: #### CBC #### [facility] [address] [place] [address] Dr. Yue Vega Erythrocyte distribution width (RBC) [Ratio] 12.3 % Normal 11.0-15.0 [facility] Comment on above: Performed By: #### CBC #### [facility] [address] [place] [address] Dr. Yue Vega Hematocrit (Bld) [Volume fraction] 42.0 % Normal 42.0-54.0 [facility] Comment on above: Performed By: #### CBC #### [facility] [address] [place] [address] Dr. Yue Vega Hemoglobin (Bld) [Mass/Vol] 13.9 g/dL Critically low 14.0-18.0 [facility] Comment on above: Performed By: #### CBC #### [facility] [address] [place] [address] Dr. Yue Vega IG # 0.03 10e3/ul Normal 0.00-0.03 [facility] Comment on above: Performed By: #### CBC #### [facility] [address] [place] [address] Dr. Yue Vega IG % 0.3 % Normal 0.0-0.5 [facility] Comment on above: Performed By: #### CBC #### [facility] [address] [place] [address] Dr. Yue Vega LYMPH # 1.9 103/ul Normal 1.2-3.8 [facility] Comment on above: Performed By: #### CBC #### [facility] [address] [place] [address] Dr. Yue Vega Lymphocytes/100 WBC (Bld) 19.8 % Critically low 20.5-60.0 [facility] Comment on above: Performed By: #### CBC #### [facility] [address] [place] [address] Dr. Yue Vega MANUAL DIFF REQ NO Normal [facility] Comment on above: Performed By: #### CBC #### [facility] [address] [place] [address] Dr. Yue Vega MCH (RBC) [Entitic mass] 30.5 pg Normal 25.9-34.0 [facility] Comment on above: Performed By: #### CBC #### [facility] [address] [place] [address] Dr. Yue Vega MCHC (RBC) [Mass/Vol] 33.1 g/dL Normal 29.9-35.2 [facility] Comment on above: Performed By: #### CBC #### [facility] [address] [place] [address] Dr. Yue Vega MCV (RBC) [Entitic vol] 92.3 fL Normal 80.0-94.0 [facility] Comment on above: Performed By: #### CBC #### [facility] [address] [place] [address] Dr. Yue Vega MONO # 0.9 103/ul Critically high 0.3-0.8 [facility] Comment on above: Performed By: #### CBC #### [facility] [address] [place] [address] Dr. Yue Vega Monocytes/100 WBC (Bld) 9.5 % Normal 1.7-12.0 [facility] Comment on above: Performed By: #### CBC #### [facility] [address] [place] [address] Dr. Yue Vega NEUT # 6.4 103/ul Normal 1.4-6.5 [facility] Comment on above: Performed By: #### CBC #### [facility] [address] [place] [address] Dr. Yue Vega Neutrophils/100 WBC (Bld) 67.8 % Normal 43.0-75.0 [facility] Comment on above: Performed By: #### CBC #### [facility] [address] [address] [address] Yue Vega Platelet mean volume (Bld) [Entitic vol] 9.4 fL Critically low 9.5-13.5 [facility] Comment on above: Performed By: #### CBC #### [facility] [address] [address] [address] Yue Vega PLT 264 103/ul Normal 150-450 [facility] Comment on above: Performed By: #### CBC #### [facility] [address] [address] [address] Yue Vega RBC 4.55 106/ul Critically low 4.70-6.10 [facility] Comment on above: Performed By: #### CBC #### [facility] [address] [address] [address] Yue Vega WBC 9.4 103/ul Normal 4.0-11.0 [facility] Comment on above: Performed By: #### CBC #### [facility] [address] [address] [address] Yue Vega GLYCOHEMOGLOBIN A1Con 2021 ADA RECOMMENDATION SEE BELOW Normal [facility] Comment on above: Result Comment: ADA RECOMMENDED LIMIT 4. 0 - 6.0 ADA THERAPEUTIC TARGET < 7.0 ACTION SUGGESTED > 7.0 Performed By: #### A 1C #### [facility] [address] [address] [address] Yue Vega Glucose [Mass/Vol] 169 mg/dL Normal [facility] Comment on above: Performed By: #### A1C #### [facility] [address] [address] [address] Yue Vega HbA1c (Bld) [Mass fraction] 7.5 % Critically high 4.5-6.2 [facility] Comment on above: Performed By: #### A1C #### [facility] [address] [address] [address] Yue Vega LIPID PROFILEon 09-26-2022 CHOL-HDL RATIO NORM SEE BELOW Normal [facility] Comment on above: Result Comment: 3.3 - 4.4 LOW RISK 4.4 - 7.1 AVERAGE RISK 7.1 - 11.0 MODERATE RISK >11.0 HIGH RISK Performed By: #### T SH #### [facility] [address] [address] [address] Yue Vega Cholesterol [Mass/Vol] 134 mg/dL Normal <=200 [facility] Comment on above: Performed By: #### TSH #### [facility] [address] [address] [address] Yue Vega Cholesterol in HDL [Mass/Vol] 51 mg/dL Normal 40-60 [facility] Comment on above: Performed By: #### TSH #### [facility] [address] [address] [address] Yue Vega Cholesterol in LDL [Mass/Vol] 63.4 mg/dL Normal [facility] Comment on above: Performed By: #### TSH #### [facility] [address] [address] [address] Yue Vega Cholesterol.tota l/Cholesterol in HDL [Mass ratio] 2.6 {ratio} Normal [facility] Comment on above: Performed By: #### TSH #### [facility] [address] [address] [address] Yue Vega HDL NORMAL > or = 60 mg/dl - LO W CARDIOVASCULAR RISK <40 mg/dl - HIGH CARDIOVASCULAR RISK Normal [facility] Comment on above: Performed By: #### TSH #### [facility] [address] [address] [address] Yue Vega LDL CALC NORMAL SEE BELOW Normal [facility] Comment on above: Result Comment: <100 mg/dl OPTIMAL 100 - 129 mg/dl NEAR OR ABOVE OPTIMAL 130 - 159 mg/dl BORDERLINE HIGH 160 - 189 mg/dl HIGH >190 mg/dl VERY HIGH Performed By: #### T SH #### [facility] [address] [address] [address] Yue Vega Triglyceride [Mass/Vol] 98 mg/dL Normal <=150 [facility] Comment on above: Performed By: #### TSH #### [facility] [address] [address] [address] Yue Vega VLDL CALC 19.6 mg/dL Normal [facility] Comment on above: Performed By: #### TSH #### [facility] [address] [address] [address] Yue Vega LIVER PROFILEon 09-26-2022 Albumin [Mass/Vol] 3.8 g/dL Normal 3.4-5.0 [facility] Comment on above: Performed By: #### LIPID, BMP, LIVER ### # [facility] [address] [address] [address] Yue Vega Albumin/Globulin [Mass ratio] 0.9 {ratio} Normal [facility] Comment on above: Performed By: #### LIPID, BMP, LIVER ### # [facility] [address] [place] [address] Dr. Yue Vega ALP [Catalytic activity/Vol] 94 U/L Normal 46-116 [facility] Comment on above: Performed By: #### LIPID, BMP, LIVER ### # [facility] [address] [place] [address] Dr. Yue Vega ALT [Catalytic activity/Vol] 34 U/L Normal 16-63 [facility] Comment on above: Performed By: #### LIPID, BMP, LIVER ### # [facility] [address] [place] [address] Dr. Yue Vega AST [Catalytic activity/Vol] 30 U/L Normal 15-37 [facility] Comment on above: Performed By: #### LIPID, BMP, LIVER ### # [facility] [address] [place] [address] Dr. Yue Vega BILI, CONJUGATED 0.2 mg/dL Normal 0.0-0.2 [facility] Comment on above: Performed By: #### LIPID, BMP, LIVER ### # [facility] [address] [place] [address] Dr. Yue Vega Bilirubin [Mass/Vol] 0.9 mg/dL Normal 0.2-1.0 [facility] Comment on above: Performed By: #### LIPID, BMP, LIVER ### # [facility] [address] [address] [address] Yue Vega Globulin (S) [Mass/Vol] 4.2 g/dL Normal [facility] Comment on above: Performed By: #### LIPID, BMP, LIVER ### # [facility] [address] [address] [address] Yue Vega Protein [Mass/Vol] 8.0 g/dL Normal 6.4-8.2 [facility] Comment on above: Performed By: #### LIPID, BMP, LIVER ### # [facility] [address] [address] [address] Yue Vega MICROALBUMIN, RAND URon 09-15 mALB 16.8 mg/L Normal <=30.0 [facility] Comment on above: Performed By: #### ERUR, UMICRO #### [facility] [address] [place] [address] Dr. Yue Vega PROF CHEM 8 (BAS METB)on Anion gap [Moles/Vol] 12.2 mmol/L Normal [facility] Comment on above: Performed By: #### TSH #### [facility] [address] [place] [address] Dr. Yue Vega Calcium [Mass/Vol] 9.4 mg/dL Normal 8.5-10.1 [facility] Comment on above: Performed By: #### TSH #### [facility] [address] [place] [address] Dr. Yue Vega Chloride [Moles/Vol] 99 mmol/L Normal 98-107 [facility] Comment on above: Performed By: #### TSH #### [facility] [address] [place] [address] Dr. Yue Vega CO2 [Moles/Vol] 32.1 mmol/L Critically high 21.0-32.0 [facility] Comment on above: Performed By: #### TSH #### [facility] [address] [place] [address] Dr. Yue Vega Creatinine [Mass/Vol] 1.19 mg/dL Normal 0.70-1.30 [facility] Comment on above: Performed By: #### TSH #### [facility] [address] [address] [address] Yue Vega EGFR-AF MALIAN >60 Normal >=60 [facility] Comment on above: Performed By: #### TSH #### [facility] [address] [address] [address] Yue Vega EGFR-NON AF MALIAN 58 mL/min/1.73m2 Critically low >=60 [facility] Comment on above: Performed By: #### TSH #### [facility] [address] [address] [address] Yue Vega Glucose [Mass/Vol] 158 mg/dL Critically high 74-106 [facility] Comment on above: Performed By: #### TSH #### [facility] [address] [address] [address] Yue Vega Potassium [Moles/Vol] 4.3 mmol/L Normal 3.5-5.1 [facility] Comment on above: Performed By: #### TSH #### [facility] [address] [address] [address] Yue Vega Sodium [Moles/Vol] 139 mmol/L Normal 136-145 [facility] Comment on above: Performed By: #### TSH #### [facility] [address] [address] [address] Yue Vega Urea nitrogen [Mass/Vol] 24.0 mg/dL Critically high 7.0-18.0 [facility] Comment on above: Performed By: #### TSH #### [facility] [address] [address] [address] Yue Vega Urea nitrogen/Creatin ine [Mass ratio] 20.2 mg/mg Normal [facility] Comment on above: Performed By: #### TSH #### [facility] [address] [address] [address] Yue Vega XR wrist LT min 3V*on 2021 XR wrist LT min 3V* [facility] [employer] Other XR wrist LT min 3V* [facility] [employer] Other XR wrist LT min 3V* [address] [facility] [employer] Other XR wrist LT min 3V* EILEEN Mendez [address] [employer] Other XR wrist LT min 3V* XRay Report [employer] Other XR wrist LT min 3V* Signed [employer] Other XR wrist LT min 3V* Patient: Edwin Orourke MR#: [id number] [employer] Other XR wrist LT min 3V* [id number] [employer] Other XR wrist LT min 3V* : 1935 Acct:[id number] [employer] Other XR wrist LT min 3V* Age/Sex: 87 / M ADM Date: 09/05/22 [employer] Other XR wrist LT min 3V* Loc: XDUCLY Room: Type: [facility] [employer] Other XR wrist LT min 3V* Attending Dr: Sanaz Campo [facility] [employer] Other XR wrist LT min 3V* Copies to: SANAZ CAMPO [facility] [employer] Other XR wrist LT min 3V* Ordering Provider: SANAZ CAMPO [facility] [employer] Other XR wrist LT min 3V* Date of Service: 09/05/22 [employer] Other XR wrist LT min 3V* XR/XR wrist LT min 3V*: Injury of left wrist, initial encounter [employer] Other XR wrist LT min 3V* LEFT WRIST - 4 views [employer] Other XR wrist LT min 3V* CLINICAL HISTORY: Fall this morning. Now with left wrist pain. [employer] Other XR wrist LT min 3V* COMPARISON: None [employer] Other XR wrist LT min 3V* FINDINGS: [employer] Other XR wrist LT min 3V* No focal soft tissue abnormality. Vascular calcifications. No acute bony process is seen. [employer] Other XR wrist LT min 3V* Degenerative changes involving the carpus, worst at the CMC joint of the thumb. [employer] Other XR wrist LT min 3V* XR/XR wrist LT min 3V* [employer] Other XR wrist LT min 3V* IMPRESSION: [employer] Other XR wrist LT min 3V* NO ACUTE BONY PROCESS. [facility] [employer] Other XR wrist LT min 3V* Impression dictated by: Albert Rene Jr., D.O.09/05/2022 5:57 PM [employer] Other XR wrist LT min 3V* Dictation Location: [place] [address] [employer] Other XR wrist LT min 3V* Transcribed By: MEGAN 09/05/22 [facility] [employer] Other XR wrist LT min 3V* Dictated By: Albert Rene Jr, DO 09/05/22 [facility] [employer] Other XR wrist LT min 3V* Signed By: [employer] Other XR wrist LT min 3V* 09/05/22 [facility] [employer] Other GLYCOHEMOGLOBIN A1Con 2021 ADA RECOMMENDATION SEE BELOW Normal [facility] Comment on above: Result Comment: ADA RECOMMENDED LIMIT 4. 0 - 6.0 ADA THERAPEUTIC TARGET < 7.0 ACTION SUGGESTED > 7.0 Performed By: #### A 1C #### [facility] [address] [address] [address] Yue Vega Glucose [Mass/Vol] 154 mg/dL Normal [facility] Comment on above: Performed By: #### A1C #### [facility] [address] [place], [place] [address] Dr. Yue Vega HbA1c (Bld) [Mass fraction] 7.0 % Critically high 4.5-6.2 [facility] Comment on above: Performed By: #### A1C #### [facility] [id number] Yue Vega Cardiovascular Lab Reporton 05-30-2018 Cardiovascular Lab Report [facility] [id number] Physician: Devendra Hood M.D.Medicine Service Date: 05/29/2018Division of Birthdate: 1935Cardiology Room #: 3CD [id number] [address] [place], [place] [address]Jvnos Fax Cardiovascular Laboratory ReportINDICATION: Edwin Orourke is an 83-year-old man with history ofhypertension, hyperlipidemia, and diabetes. [facility] with typical unstable angina. He thenhad [...] signed informed consent. He was brought to clinical laboratory technologist in a fasting state.The left wrist area was prepped and draped in usual fashion. Tiago's testwas favorable. Access in the left radial artery was obtained usingultrasound guidance and micropuncture technique. A 6-Danish x 11 cmHydrophilic sheath was left. Verapamil was given through the sheath andheparin was administered intravenously. Bilateral selective coronaryangiography was then performed using 6-Danish JL4 for engagement of theleft coronary artery and a 6-Danish JR4 followed by a 6-Danish ALIREZA catheterfor engagement of the right coronary artery. Catheters were removed.Therapeutic ACT confirmed during the procedure and additional heparin givenas needed. A 6-Danish XB 3.5 guiding catheter was advanced and [...] 11 atmospheres and post dilated using NCQuantum Cutler 2.5 x 8 mm noncompliant balloon inflated [...] 11atmospheres and post dilated using NC Quantum Cutler 2.5 x 15 mm noncompliantballoon inflated at 18 atmospheres throughout the length of the stent.Angiography was performed. Intracoronary nitroglycerin was administered.It was decided to deploy an additional stent distal to the previouslydeployed stent. This was a Synergy 2.25 x 12 mm stent, deployed at 11atmospheres and post dilated using NC Quantum Cutler 2.5 x 15 mm noncompliantballoon inflated at [...] 05/29/2018/01:20 P/Devendra Flores M.D.Date Trans: 05/30/2018 11:47 A/[id number]: Darrin Velasquez D.O. [address] [facility] [address] [facility] [address] Ramon Martines M.D. [address] [facility] [address] Normal [facility] POC GLUCOSE LABon 05-30-2018 Glucose mass conc 121 mg/dL High 70-100 [facility] Comment on above: Performed By: #### [id number] ####[facility] [place] [address], [facility] POC GLUCOSE LABon 05-29-2018 Glucose mass conc 126 mg/dL High 70-100 [facility] Comment on above: Performed By: #### [id number] ####[facility] [place] [address], [facility] Glucose mass conc 127 mg/dL High 70-100 [facility] Comment on above: Performed By: #### [id number] ####[place] [address] Vital Signs Date Time Vital Sign Value Performing Clinician Facility 10-25-2024 12:00-0500 Body height 177.8 cm Ramon Martines MD Work Phone: [facility] 10-25-2024 12:00-0500 Body temperature 97.5 [degF] Ramon Martines MD Work Phone: [facility] 10-25-2024 12:00-0500 Diastolic blood pressure 52 mm[Hg] Ramon Martines MD Work Phone: [facility] 10-25-2024 12:00-0500 Heart rate 75 /min Ramon Martines MD Work Phone: [facility] 10-25-2024 12:00-0500 Respiratory rate 20 /min Ramon Martines MD Work Phone: [facility] 10-25-2024 12:00-0500 SaO2% (BldA) [Mass fraction] 99 % Ramon Martines MD Work Phone: [facility] 10-25-2024 12:00-0500 Systolic blood pressure 118 mm[Hg] Ramon Martnies MD Work Phone: [facility] 08-13-2024 11:04-0400 Body height 177.8 cm Ramon Martines MD Work Phone: [facility] 08-13-2024 11:04-0400 Body temperature 97.11 [degF] Ramon Martines MD Work Phone: [facility] 08-13-2024 11:04-0400 Diastolic blood pressure 52 mm[Hg] Ramon Martines MD Work Phone: [facility] 08-13-2024 11:04-0400 Heart rate 76 /min Ramon Martines MD Work Phone: [facility] 08-13-2024 11:04-0400 Respiratory rate 20 /min Ramon Martines MD Work Phone: [facility] 08-13-2024 11:04-0400 SaO2% (BldA) [Mass fraction] 97 % Ramon Martines MD Work Phone: [facility] 08-13-2024 11:04-0400 Systolic blood pressure 130 mm[Hg] Ramon Martines MD Work Phone: [facility] 06-04-2024 13:35-0400 Body height 177.8 cm Ramon Martines MD Work Phone: [facility] 06-04-2024 13:35-0400 Body temperature 97.81 [degF] Ramon Martines MD Work Phone: [facility] 06-04-2024 13:35-0400 Diastolic blood pressure 52 mm[Hg] Ramon Martines MD Work Phone: [facility] 06-04-2024 13:35-0400 Heart rate 76 /min Ramon Martines MD Work Phone: [facility] 06-04-2024 13:35-0400 Respiratory rate 20 /min Ramon Martines MD Work Phone: [facility] 06-04-2024 13:35-0400 SaO2% (BldA) [Mass fraction] 98 % Ramon Martines MD Work Phone: [facility] 06-04-2024 13:35-0400 Systolic blood pressure 122 mm[Hg] Ramon Martines MD Work Phone: [facility] 05-31-2024 10:44-0400 Blood Pressure Location Deven BUTLER [facility] 05-31-2024 10:44-0400 Body temperature 98.6 [degF] Deven BUTLER [facility] 05-31-2024 10:44-0400 Diastolic blood pressure 71 mm[Hg] Deven BUTLER [facility] 05-31-2024 10:44-0400 Heart rate 62 /min Deven BUTLER [facility] 05-31-2024 10:44-0400 Respiratory rate 16 /min Deven BUTLER [facility] 05-31-2024 10:44-0400 Systolic blood pressure 130 mm[Hg] Deven BUTLER [facility] 12-01-2023 09:23-0500 Blood Pressure Location Deven BUTLER [facility] 12-01-2023 09:23-0500 Diastolic blood pressure 63 mm[Hg] Deven BUTLER [facility] 12-01-2023 09:23-0500 Heart rate 60 /min Deven BUTLER [facility] 12-01-2023 09:23-0500 Respiratory rate 16 /min Deven BUTLER [facility] 12-01-2023 09:23-0500 Systolic blood pressure 111 mm[Hg] Deven BUTLER [facility] 09-05-2022 17:40-0500 Body height 180.34 cm Sanaz Campo Other [facility] [employer] Other 09-05-2022 17:40-0500 Body mass index (BMI) [Ratio] 27.89 kg/m2 Sanaz Campo Other [facility] Other 09-05-2022 17:40-0500 Body temperature 97.6 [degF] Sanaz Campo Other [facility] Other 09-05-2022 17:40-0500 Body weight 90.72 kg Sanaz Campo Other [facility] [employer] [facility] Other 09-05-2022 17:40-0500 Diastolic blood pressure 63 mm[Hg] Sanaz Campo Other [facility] Other 09-05-2022 17:40-0500 Respiratory rate 16 /min Sanaz Campo Other [facility] [employer] [facility] Other 09-05-2022 17:40-0500 SaO2% (BldA) [Mass fraction] 97 % Sanaz Campo Other [facility] Other 09-05-2022 17:40-0500 Systolic blood pressure 153 mm[Hg] Sanaz Campo Other [facility] [employer] Other Encounters Encounter Date Encounter Type Care Provider Facility Start: 11-09-2024 End: 11-11-2024 Refill Ramon Martines MD Work Phone: [facility] Comment on above: Generalized anxiety disorder (CMS/HCC) Start: 11-08-2024 ambulatory LUKAS Wardi ty:ELD[facility] [place] Start: 10-25-2024 End: 10-25-2024 Bamboo flowsheet Ramon Martines MD Work Phone: [facility] Start: 10-25-2024 End: 10-25-2024 Bamboo flowsheet Ramon Martines MD Work Phone: [facility] Start: 10-25-2024 End: 10-25-2024 Office outpatient visit 25 minutes Ramon Martines MD Work Phone: [facility] Comment on above: Non-healing ulcer of buttock, limited to breakdown of skin ([facility]/HCC) (Primary Dx); Type 2 diabetes mellitus with hyperglycemia, without long-term current use of insulin ([facility]); Essential hypertension, benign ([facility]/HCC); Lumbar spondylosis; Chronic diastolic heart failure ([facility]/HCC); Paroxysmal A-fib ([facility]); Stage 3a chronic kidney disease (HCC) ([facility]); Type 2 diabetes mellitus with diabetic chronic kidney disease ([facility]) Start: 10-25-2024 End: 10-25-2024 ambulatory RAMON MARTINES Not Available Start: 10-15-2024 End: 10-15-2024 ambulatory Ranjeet Clarke Facility:[facility] Start: 10-15-2024 End: 10-15-2024 Departed Referred Ranjeet Clarke DO [facility] Path Spec [facility] Start: 10-08-2024 End: 10-08-2024 ambulatory LUKAS SAPP Facility:[facility] Start: 10-08-2024 End: 10-08-2024 Patient encounter procedure LUKAS SAPP [facility] Start: 09-10-2024 End: 09-10-2024 ambulatory Yi X Orzech [facility] Start: 09-10-2024 End: 09-10-2024 Patient encounter procedure Yi X Orzech [facility] Start: 09-02-2024 End: 09-02-2024 ambulatory Soy Turpin MD Facility: [place] Start: 08-16-2024 ambulatory Deven Dan ty: [place] Start: 08-13-2024 End: 08-13-2024 ambulatory Yi X Orzech [facility] Start: 08-13-2024 End: 08-13-2024 Bamboo flowsheet Ramon [...] Dx); Stage 3a chronic kidney disease (HCC) ([facility]/HCC); Type 2 diabetes mellitus with diabetic chronic kidney disease ([facility]/HCC) Start: 08-13-2024 End: 08-13-2024 ambulatory RAMON MARTINES Not Available Start: 07-26-2024 ambulatory Deven BUTLER Facili ty:[facility] Start: 07-19-2024 End: 07-19-2024 ambulatory Deven BUTLER Facility:[facility] Start: 07-19-2024 End: 07-19-2024 Patient encounter procedure Deven BUTLER [facility] Start: 06-21-2024 End: 06-21-2024 ambulatory Deven BUTLER Facility:[facility] [place] Start: 06-21-2024 End: 06-21-2024 Patient encounter procedure Deven BUTLER [facility] Start: 06-14-2024 End: 06-17-2024 Clinisync Result Encounter [...] Result Encounter Ramon Martines MD Work Phone: [facility] External Department Unsolicited Start: 06-04-2024 End: 06-04-2024 [...] Start: 05-31-2024 End: 05-31-2024 ambulatory Deven BUTLER Facility:[facility] Start: 05-31-2024 End: 05-31-2024 Lab Drop off Deven BUTLER [facility] Start: 05-31-2024 End: 05-31-2024 ambulatory Deven BUTLER Facility:[facility] Start: 05-31-2024 End: 05-31-2024 Patient encounter procedure Deven BUTLER [facility] Start: 05-28-2024 End: 05-28-2024 ambulatory [facility] Start: 04-02-2024 End: 04-02-2024 ambulatory [facility] Start: 01-30-2024 End: 01-30-2024 ambulatory Deven BUTLER Facility:[facility] Start: 01-30-2024 End: 01-30-2024 Patient encounter procedure Deven BUTLER [facility] Start: 12-28-2023 End: 12-28-2023 ambulatory [facility] Start: 12-26-2023 End: 12-26-2023 ambulatory [facility] Start: 12-13-2023 End: 12-13-2023 ambulatory RAMON MARTINES Not Available Start: 12-01-2023 End: 12-01-2023 ambulatory Deven BUTLER Facility:[facility] Start: 12-01-2023 End: 12-01-2023 Patient encounter procedure Deven BUTLER [facility] Start: 11-21-2023 End: 11-21-2023 ambulatory [facility] Start: 11-06-2023 End: 11-06-2023 ambulatory Deven BUTLER Facility:[facility] Start: 10-11-2023 End: 10-11-2023 ambulatory ЕЛЕНА [facility] Start: 10-02-2023 ambulatory [facility] Start: 10-02-2023 End: 10-02-2023 ambulatory [facility] Start: 08-22-2023 End: 08-22-2023 ambulatory [facility] Start: 02-16-2023 End: 02-17-[address] DOCTOR NAGEL Facility: Start: 01-06-2023 End: 01-06-2023 ambulatory MD Ramon Martines Work Phone: [facility] Work Phone: Start: 01-06-2023 End: 01-06-2023 Patient encounter procedure MD Ramon Martines Work Phone: [facility] [place] Work Phone: Start: 12-26-2022 End: 12-26-2022 ambulatory GONZÁLEZ HADDAD . Facility:[facility] Start: 12-21-2022 End: 12-22-2022 ambulatory SUZI MURRAY Facility:[facility] Start: 12-06-2022 End: 12-31-[address] RAMON MARTINES Facility:[facility] Start: 09-26-2022 End: 09-27-[address] RAMON MARTINES Facility:[facility] Start: 09-05-2022 End: 09-05-2022 Patient encounter procedure COLD HEADER-C Sanaz Campo Work Phone: [facility] Start: 09-05-2022 End: 09-05-2022 ambulatory COLD HEADER-C Sanaz Campo Work Phone: [facility] Work Phone: Start: 09-05-2022 Office outpatient vi sit 15 minutes Sanaz Campo [facility] Start: 04-19-2022 End: 04-20-[address] RAMON MARTINES Facility: Start: 05-29-2018 End: 05-30-2018 Patient encounter PROVIDER UNKNOWN Facility:[facility] Start: 05-28-2018 End: 05-29-2018 Patient encounter DEFAULT PHYSICIAN Facility:[facility] Start: 05-20-2018 End: 05-21-2018 Patient encounter DEFAULT PHYSICIAN Facility:[facility] Procedures Date Procedure Procedure Detail Performing Clinician Start: 06-14-2024 Bacteria identified in Urine by Culture Generic External Data Provider Start: 06-04-2024 ALL BASIC METABOLIC PANEL Ramon Martines MD Work Phone: Start: 01-30-2024 Cystoscopy Deven MARTINEZ Start: 01-30-2024 Urodynamic studies Jyotsna BUTLER Start: 01-06-2023 MRI of head MD Ramon chapman Work Phone: Start: 09-05-2022 Plain X-ray of left wrist COLD HEADER-C Sanaz Campo Work Phone: Appendectomy Deven BUTLER Arthroplasty of knee Deven BUTLER Extraction of cataract Mayra BUTLER Implantation of radioactive seed into prostate Deven BUTLER Placement of stent i n cardiac conduit Deven BUTLER Plan of Treatment Date Care Activity Detail Author Start: 08-13-2025 Medicare Annual Wellness (AWV) Medicare Annual Wellness (AWV) [facility] Start: 07-17-2025 Glaucoma screening Diabetes: R etinopathy Screening [facility] Start: 02-14-2025 End: 02-14-2025 Patient encounter procedure 02/14/2025 11:00 AM EDT Office Visit [facility] [address] [place] [phone] Ramon Martines MD [address] [place] [phone] [facility] Start: 12-21-2024 Urine screening for protein Diabetes: Urine Protein Screening [facility] Start: 12-05-2024 Hemoglobin A1c measurement Diabetes: Hemoglobin A1C [facility] Start: 10-25-2024 End: 10-25-2024 Patient encounter procedure 10/25/2024 11:45 AM EST Office Visit [facility] [address] [place] [address] Ramon Martines MD [address] [place] [phone] Arrived [facility] Comment on above: Arrived Start: 10-15-2024 Bacteria identified in Urine by Culture Urine Culture [facility] Start: 10-15-2024 Urine culture [facility] Start: 08-13-2024 End: 08-13-2024 Patient encounter procedure [facility] Comment on above: Arrived Start: 07-31-2024 End: 07-31-2024 Patient encounter procedure 07/31/2024 1:00 PM EDT Office Visit [facility] [address] [place] [phone] Cher ChurchillJOHANA-EQUIPMENT TECHNICIAN [address] [place] [address] [facility] Start: 06-23-2024 Hemoglobin A1c measurement Diabetes: Hemoglobin A1C [facility] Start: 06-16-2024 Influenza vaccination Influenza Vacc ine (#1) [facility] Start: 06-04-2024 End: 06-04-2025 Basic metabolic 1998 panel - Serum or Plasma Basic metabolic panel Lab Routine Essential hypertension, benign ([facility]/HCC) Expected: 06/04/2024 (Approximate), Expires: 06/04/2025 [facility] Comment on above: Expected: 06/04/2024 (Approximate), Expires: 06/04/2025 Start: 06-04-2024 End: 06-04-2025 Hemoglobin A1c/Hemoglobin.total in Blood Hemoglobin A1c Lab Routine Type 2 diabetes mellitus with hyperglycemia, without long-term current use of insulin ([facility]) Expected: 06/04/2024 (Approximate), Expires: 06/04/2025 [facility] Work Phone: Comment on above: Expected: 06/04/2024 (Approximate), Expires: 06/04/2025 Start: 06-04-2024 End: 06-04-2024 Patient encounter procedure 06/04/2024 1:30 PM EDT [facility] [address] [place] [phone] Ramon Martines MD [address] [place] [phone] Arrived [facility] Comment on above: Arrived Start: 03-23-2024 Hemoglobin A1c measurement Diabetes: Hemoglobin A1C [facility] Start: 1947 Glaucoma screening Diabetes: R etinopathy Screening [facility] Start: 1943 Pneumococcal Vaccine : 65+ Years (1 of 2 - PCV) Pneumococcal Vaccine: 65+ Years (1 of 2 - PCV) [facility] Start: 1937 Medicare Annual Wellness (AWV) Medicare Annual Wellness (AWV) [facility] Bacteria identified in Urine by Culture URINE CULTURE, ROUTINE Lab Routine 06/14/2024 12:55 PM EDT [facility] Payers Date Payer Category Payer Self-pay 2021 Private Health Insurance [employer] [id number] 2021 Unknown 2001 Medicare [id number] 1959 Medicare [id number] 1959 Unknown [id number] 1937 Unknown [id number] 2..840.1.985053.3.579.2. 593 1937 Unknown [id number] 2.16.840.1.879083.3.579.2. 593 1937 Unknown [id number] 2.16.840.1.231760.3.579.2. 593 1937 Unknown [id number] 2.16.840.1.819651.3.579.2. 593 1937 Unknown [id number] 2.16.840.1.951869.3.579.2. 593 1937 Unknown [id number] 2.16.840.1.916759.3.579.2. 593 1937 Unknown [id number] 2.16.840.1.099322.3.579.2. 727 1937 Unknown [id number] 2.16.840.1.249646.3.579.2. 727 1937 Unknown [id number] 2.16.840.1.342815.3.579.2. 727 1937 Unknown [id number] 2.16840.1.541705.3.579.2. 727 1937 Unknown [id number] 2.16840.1.231428.3.579.2. 727 1937 Unknown [id number] 2.16840.1.498683.3.579.2. 727 1937 Unknown [id number] 2.16840.1.422824.3.579.2. 196 1937 Unknown [id number] 2.16840.1.629119.3.579.2. 1259 1937 Unknown [id number] 2.16840.1.266341.3.579.2. 1259 1937 Unknown [id number] 2.16.840.1.858682.3.579.2. 1259 1937 Unknown [id number] 2.16.840.1.927555.3.579.2. 1259 1937 Unknown [id number] 2.16.840.1.371173.3.579.2. 727 1937 Unknown [id number] 2.16.840.1.166213.3.579.2. 727 1937 Unknown [id number] 2.16.840.1.272053.3.579.2. 727 1937 Unknown [id number] 2.16.840.1.865331.3.579.2. 727 1937 Unknown [id number] 2.16.840.1.171233.3.579.2. 727 1937 Unknown [id number] 2.16.840.1.991913.3.579.2. 727 1937 Unknown [id number] 2.16.840.1.479220.3.579.2. 727 1937 Unknown [id number] 2.16.840.1.035829.3.579.2. 727 Medicare [id number] Unknown [id number] 2.16.840.1.264837.3.579.2. 531 Social History Date Type Detail [facility] Work Phone: Start: 1935 Sex Assigned At Male F [facility] Start: 06-04-2024 End: 08-13-2024 Sex Assigned At [facility] Start: 03-02-2020 End: 07-14-2023 Tobacco smoking status Never smoked tobacco (finding) [facility] Start: 06-04-2024 End: 10-25-2024 Alcoholic beverage intake Lifetime non-drinker (finding) [facility] Start: 06-04-2024 End: 08-13-2024 History of Social function [facility] Start: 1935 Sex assigned at Not on file [facility] Work Phone: Start: 10-16-2024 Sex Patient sex un known (finding) [facility] Medical Equipment Procedure Code Equipment Code Equipment Origin al Text Equipment Identifier Dates 1 each by In Vit ro route Daily [id number] Start: 12-13-2023 Functional Status Date Assessment Result Facility 05-31-2024 Functional Status N/A [facility] 01-30-2024 Functional Status N/A [facility] 12-01-2023 Functional Status N/A [facility] Clinical Notes 09-05-2022 to 10-25-2024 Ramon Martines MD - 10/25/2024 2:24 PM Raza Martines MD - 10/25/2024 2:24 PM Raza Martines MD - 10/25/2024 2:24 PM Raza Martines MD - 10/25/2024 2:24 PM EST Note Date & Type Note Facility 10-25-2024 History of Present illness Narrative Associated Problem(s): Stage 3a chronic kidney disease (HCC) ([facility]) Monitor labs Associated Problem(s): Type 2 diabetes mellitus with hyperglycemia, without long-term current use of insulin ([facility]) Not checking BS and due for A1C. Associated Problem(s): Paroxysmal A-fib ([facility]) Remains in NSR and monitor. Associated Problem(s): Non-healing ulcer of buttock, limited to breakdown of skin ([facility]) Ulcer for months and not healing. Add wound care from Home Health. Associated Problem(s): Lumbar spondylosis Pain much improved and monitor. Start PT for weakness. Associated Problem(s): Essential hypertension, benign ([facility]/HCC) BP controlled and monitor PRN. Associated Problem(s): Chronic diastolic heart failure ([facility]) No edema and continue medication. Elevate legs PRN. Images from the original note were not included. Subjective Patient ID: Ewdin Orourke is a 89 y.o. male who presents for Follow-up (Documentation for home heatlh./). Follow up DM, HTN, back pain, afib, and CHF. Developed wound on gluteal region when in SNF almost a year ago and not healing. Open area on bilaeral cheeks and at times will appear to heal then other times look worse. No odor or significant redness. Using OTC neosporin but wants wound care from home health. Reports BS improved around 85 and due for A1C. Decreased appetite and not eating much. Checking BP PRN and typically controlled. BP normal today. Taking medication daily and tolerating without side effects. Afib stable. No palpitations or heart racing. Not lightheaded or dizzy. Reports back pain much improved after epidural in August. Mild pain in low back and top hips but minimal. Edema controlled with medication. Mild swelling at end of day and if on feet a lot. Edema improved in am and with elevation. Review of Systems Constitutional: Negative for fatigue. [...] Addressed This Visit Chronic diastolic heart failure ([facility]/HCC) No edema and continue medication. Elevate legs PRN. Essential hypertension, benign ([facility]/HCC) BP controlled and monitor PRN. Lumbar spondylosis Pain much improved and monitor. Start PT for weakness. Paroxysmal A-fib ([facility]) Remains in NSR and monitor. Type 2 diabetes mellitus with hyperglycemia, without long-term current use of insulin ([facility]) Not checking BS and due for A1C. Stage 3a chronic kidney disease (HCC) (CMS/HCC) Monitor labs Non-healing ulcer of buttock, limited to breakdown of skin ([facility]) - Primary Ulcer for months and not healing. Add wound care from Home Health. documented in this encounter [facility] 08-13-2024 History of Present illness Narrative Associated Problem(s): Stage 3a chronic kidney disease (HCC) ([facility]) Renal function stable. Associated Problem(s): Medicare annual [...] Visit Stage 3a chronic kidney disease (HCC) ([facility]) Renal function stable. Medicare annual wellness visit, subsequent - Primary Reviewed labs. Discussed proper diet and regular aerobic exercise. Need aerobic exercise 5-6 days a week for 30 minutes at a time. Smaller portions and limit total calories. Tetanus every 10 years. Advised not to smoke. Discussed daily Aspirin therapy. documented in this encounter [facility] 06-04-2024 History of Present illness Narrative Associated Problem(s): Type 2 diabetes mellitus with hyperglycemia, without long-term current use of insulin ([facility]) Not checking BS and due for A1C. Associated Problem(s): Major depressive disorder, recurrent episode, moderate (HCC) ([facility]) Symptoms improved with celexa and continue. Associated [...] 8.6 MG capsule documented in this encounter [facility] 05-31-2024 Hospital Discharge instructions Patient Education 05/31/2024 [...] bag. Secure the leg bag according to logger's instructions. This may be above or below [...] on each side. Do this in a zumqs-qs-[id number] direction. ?If you are male: ?Use one [...] Clean the drainage bag according to the logger's instructions or as told by your health [...] and water are not available, use hand creel clerk. Always make sure there are no twists, [...] provider. Document Revised: 06/02/2022 Document Reviewed: 06/02/2022 [employer] Patient Education 2022 Allocab. Follow Up Care 01/30/2024 11:29:46 With:MÓNICA STEPHENSON, Deven Zimmerman, URL Address: [address] [place] [phone]- When: Unknown [facility] 05-31-2024 Note Patient Education Urology Indwelling Urinary [...] ? Secure the leg bag according to logger's instructions. This may be above or below [...] on each side. Do this in a auxfi-oa-xtii direction. ? If you are male: ? [...] Clean the drainage bag according to the logger's instructions or as told by your health [...] to prevent ba (more content not included)... [facility] 04-02-2024 Note [place] Electrophysiology Note Reason for visit: bradycardia 04/02/24 [...] discontinued due to having ER visit with [facility] for complaints of dizziness and was [...] ECG 05/04/2018: Atrial fibrillation, possible old septal TX. ECG 05/28/2018 showed sinus rhythm with 1st degree AV block and PAC. Possible anteroseptal TX. ECG today 03/21/2019: sinus rhythm with 1st [...] morning. oxyCODONE (Roxicod (more content not included)... [facility] 01-30-2024 Evaluation + Plan note Extrac [...] Date:05/31/2024 11:00:00 AM Scheduled Provider:Deven BUTLER MD Location:[facility] Appointment Type:URO Office Visit [facility]04-16-2024 Hospital Discharge instructions Patient Education 01/30/2024 11:24:21 [...] degrees. Follow Up Care 01/04/2024 13:38:25 With:Deven MÓNICA Address: [address] [place] [address] [place] [address] Business (1) When:05/31/2024 11:24:06 [facility]04-16-2024 Note [id number] 01-30-2024 NoteCustom Cystoscopy ? Voiding after the [...] if you have a fever over 100 degrees.[facility] 12-26-2023 NoteUT Electrophysiology Note Reason [...] work on him once /wk. HPI: Edwin Zimmerman [place] is a 88 [...] discontinued due to having ER visit with [facility] for complaints of dizziness and was [...] ECG 05/04/2018: Atrial fibrillation, possible old septal TX. ECG 05/28/2018 showed sinus rhythm with 1st degree AV block and PAC. Possible anteroseptal TX. ECG today 03/21/2019: sinus rhythm with 1st [...] of Systems Constitutional: Pos (more content not included)...[facility]02-16-2024 Hospital Discharge instructions Patient Education 12/01/2023 [...] nerve stimulation). ?For women, using a medical support assistant to prevent urine leaks. This is a [...] right after experiencing incontinence. General instructions Take xeyr-syh-bcjfgai and prescription medicines only as told by [...] important. Where to find more information National Harvey of Diabetes and Digestive and Kidney Diseases: www.niddk.nih.gov [employer] [place] [employer]: www.urologyhealth.org Contact a health care [...] provider. Document Revised: 05/07/2021 Document Reviewed: 05/07/2021 [employer] Patient Education 2022 Allocab. Follow Up Care 08/25/2023 10:52:16 With:MÓNICA STEPHENSON, Deven Zimmerman, URL Address: [address] [place] [phone]- When: Unknown [facility] 12-27-2023 NoteStable s/p [facility] NoteStable s/p [facility] chamber [facility]12-27-2023 NotePt presents for 1 week wound check s/p recent [employer] dual PPM implant for SSS/ bradycardia Incision site well approximated, healing well without s/s of infectionUnParkwood Hospital12-27-2023 NoteUTP CARDIOLOGY PROGRESS NOTE HPI: Edwin [...] PROCEDURE: 10/02/23 PERFORMING PHYSICIAN: Dr. Mike Hilario COMPACT ASSEMBLER: Dr Lana Powell CONSENT: Patient LOCATION: EP Lab PROCEDURE PERFORMED: 1. Implantation of pacemaker ([employer]) 2. Ultrasound guided venous access INDICATIONS: 1. Sinus node dysfunction. 2. Bradycardia No echocardiogram results found for the past 12 months Assessment/Plan: Cardiac pacemaker in situ Pt presents for 1 week wound check s/p recent [employer] dual PPM implant for SSS/ bradycardia Incision site well approximated, healing well without s/s of infection Sinus node dysfunction (CMS/HCC) Stable s/p Dual chamber PPM Sinus bradycardia Stable s/p Dual chamber PPM RTC 1 month with device repUnParkwood Hospital12-18-2023 Note DUAL CHAMBER PACEMAKER IMPLANT PROCEDURE NOTE DATE OF PROCEDURE: 10/02/23 PERFORMING PHYSICIAN: Dr. Mike Hilario COMPACT ASSEMBLER: Dr Lana Powell CONSENT: Patient LOCATION: EP Lab PROCEDURE PERFORMED: 1. Implantation of pacemaker ([employer]) 2. Ultrasound guided venous access INDICATIONS: [...] discontinued due to having ER visit with [facility] for complaints of dizziness and was [...] using modified seldinger technique using a 5 Danish micro-puncture needle on two occasions and 0.35 [...] for the device above the muscle. 6 Danish Safesheaths were placed over the wire. An active fixation [employer] pacing lead was then delivered through the 6Fsheath to the right ventricle. After confirmation of lead position on orthogonal views (GRAVES and THAI) to confirm septal position, the screw was activated, and the lead was placed in the right ventricular mid cavity towards the septum. After confirmation of good sensing parameters, injury pattern and pacing thresholds, 10V pacing was done and no diaphragmatic stimulation was noted. It was then secured in the pocket using three 1-0 Silk sutures. Then an active fixation [employer] lead was delivered through the 6Fsheath to the right atrial appendage. After confirmation of lead position on orthogonal views (GRAVES and THAI), the screw was activated. Good sensing parameters, [...] 5. No driving for (more content not included)...[facility]12-18-2023 NotePatient: Edwin Orourke Procedure Information Date/Time: 10/02/23 1230 Procedure: Pacemaker DC new Location: [facility] FRAME GATE MORTISER OPERATOR 1 EP / [facility]ASCULAR [facility] (Cath) Providers: Mike Hilario MD Clinical information reviewed: Allergies Meds Physical Exam Airway Mallampati: II TM distance: >3 FB Neck ROM: full Cardiovascular Dental Pulmonary Abdominal Anesthesia Plan ASA 2 CSE Anesthetic plan and risks discussed with patient. Use of blood products discussed with patient who. Additional Equipment [facility]UnParkwood [facility]11-07-2023 Note [place] Electrophysiology Note Reason for visit: bradycardia Date of Telehealth Visit: 08/22/23 The patient was notified that using 3rd republican telecommunication application (e.g., iogyn) is not HIPPA compliant and may carry some privacy risks. Yes The visit was conducted pgbx-[id number]-rnil with the use of audio and video [...] discontinued due to having ER visit with [facility] for complaints of dizziness and was [...] ECG 05/04/2018: Atrial fibrillation, possible old septal TX. ECG 05/28/2018 showed sinus rhythm with 1st degree AV block and PAC. Possible anteroseptal TX. ECG today 03/21/2019: sinus rhythm with 1st [...] ROS: Cardio Basic Cardiovascular (more content not included)...[facility] 09-05-2022 Evaluation note* Encounter Date Diagnosis [...] care office for follow up on Monday [employer] [address] Cases Live Other Evaluation + Plan note No data available for this section [facility] evaluation + Plan note Future Appointments Appointment Date:06/21/2024 11:00:00 AM Scheduled Provider: Location:[facility] Appointment Type:URO Nurse Visit [facility] evaluation + Plan note Future Appointments Appointment Date:06/21/2024 11:00:00 AM Scheduled Provider: Location:[facility] Appointment Type:URO Nurse Visit Diagnostic Tests Pending * Urine Culture 05/31/24 [facility] evaluation + Plan note Future Appointments Appointment Date:07/19/2024 11:00:00 AM Scheduled Provider: Location:[facility] Appointment Type:URO Nurse Visit [facility] evaluation + Plan note Future Appointments Appointment Date:08/16/2024 11:00:00 AM Scheduled Provider: Location:[facility] Appointment Type:URO Nurse Visit [facility] evaluation + Plan note Future Appointments Appointment Date:09/10/2024 11:00:00 AM Scheduled Provider: Location:[facility] Appointment Type:URO Nurse Visit [facility] evaluation + Plan note Future Appointments Appointment Date:10/08/2024 11:40:00 AM Scheduled Provider:LUKAS SAPP PA-C Location:[facility] Appointment Type:URO Office Visit [facility] evaluation + Plan note Future Appointments Appointment Date:11/08/2024 11:20:00 AM Scheduled Provider:LUKAS SAPP PA-C Location:[facility] Appointment Type:URO Office Visit [facility] evaluation noteNo assessment information available [facility] Work Phone: evaluation note* Diagnosis Type 2 diabetes mellitus with hyperglycemia, without long-term current use of insulin (CMS/HCC)- Primary Essential hypertension, benign (CMS/HCC) Essential hypertension, benign Lumbar spondylosis Lumbosacral spondylosis without myelopathy Chronic diastolic heart failure (CMS/HCC) Chronic diastolic heart failure Paroxysmal A-fib ([facility]) Encounter for long-term (current) use of medications Encounter for long-term (current) use of other medications Dyslipidemia (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) Type 2 diabetes mellitus with hyperglycemia, without long-term current use of insulin ([facility])- Primary Essential hypertension, benign ([facility]) Essential hypertension, benign Encounter for long-term (current) use of medications Encounter for long-term (current) use of other medications Chronic constipation Unspecified constipation Lumbar spondylosis Lumbosacral spondylosis without myelopathy Generalized anxiety disorder ([facility]) Generalized anxiety disorder Chronic diastolic heart failure ([facility]) Chronic diastolic heart failure Type 2 diabetes mellitus with diabetic chronic kidney disease ([facility]) Chronic kidney disease, stage 2 (mild) Medicare annual wellness visit, subsequent- Primary Stage 3a chronic kidney disease (HCC) ([facility]) Type 2 diabetes mellitus with diabetic chronic kidney disease ([facility]) documented in this encounter [facility] HealthcareEvaluation note* Diagnosis Type 2 diabetes mellitus with hyperglycemia, without long-term current use of insulin ([facility])- Primary Essential hypertension, benign ([facility]) Essential hypertension, benign Encounter for long-term (current) use of medications Encounter for long-term (current) use of other medications Chronic constipation Unspecified constipation Lumbar spondylosis Lumbosacral spondylosis without myelopathy Generalized anxiety disorder ([facility]) Generalized anxiety disorder Chronic diastolic heart failure ([facility]) Chronic diastolic heart failure Type 2 diabetes mellitus with diabetic chronic kidney disease (HCC) ([facility]) Chronic kidney disease, stage 2 (mild) documented in this encounter [facility] HealthcareEvaluation note* Diagnosis Type 2 diabetes mellitus with hyperglycemia, without long-term current use of insulin ([facility])- Primary Essential hypertension, benign ([facility]) Essential hypertension, benign Lumbar spondylosis Lumbosacral spondylosis without myelopathy Chronic diastolic heart failure ([facility]) Chronic diastolic heart failure Paroxysmal A-fib ([facility]) Encounter for long-term (current) use of medications Encounter for long-term (current) use of other medications Dyslipidemia (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) Type 2 diabetes mellitus with hyperglycemia, without long-term current use of insulin ([facility])- Primary Essential hypertension, benign ([facility]) Essential hypertension, benign Encounter for long-term (current) use of medications Encounter for long-term (current) use of other medications Chronic constipation Unspecified constipation Lumbar spondylosis Lumbosacral spondylosis without myelopathy Generalized anxiety disorder ([facility]) Generalized anxiety disorder Chronic diastolic heart failure ([facility]) Chronic diastolic heart failure Type 2 diabetes mellitus with diabetic chronic kidney disease ([facility]) Chronic kidney disease, stage 2 (mild) Medicare annual wellness visit, subsequent- Primary Stage 3a chronic kidney disease (HCC) ([facility] Type 2 diabetes mellitus with diabetic chronic kidney disease ([facility]) Non-healing ulcer of buttock, limited to breakdown of skin ([facility])- Primary Type 2 diabetes mellitus with hyperglycemia, without long-term current use of insulin ([facility]) Essential hypertension, benign ([facility]) Essential hypertension, benign Lumbar spondylosis Lumbosacral spondylosis without myelopathy Chronic diastolic heart failure ([facility] Chronic diastolic heart failure Paroxysmal A-fib ([facility] Stage 3a chronic kidney disease (HCC) ([facility]) Type 2 diabetes mellitus with diabetic chronic kidney disease ([facility]) documented in this encounter [facility] HealthcareEvaluation note* Diagnosis Type 2 diabetes mellitus with hyperglycemia, without long-term current use of insulin ([facility])- Primary Essential hypertension, benign ([facility]) Essential hypertension, benign Lumbar spondylosis Lumbosacral spondylosis without myelopathy Chronic diastolic heart failure ([facility]) Chronic diastolic heart failure Paroxysmal A-fib ([facility]) Encounter for long-term (current) use of medications Encounter for long-term (current) use of other medications Dyslipidemia (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) Type 2 diabetes mellitus with hyperglycemia, without long-term current use of insulin ([facility])- Primary Essential hypertension, benign ([facility]) Essential hypertension, benign Encounter for long-term (current) use of medications Encounter for long-term (current) use of other medications Chronic constipation Unspecified constipation Lumbar spondylosis Lumbosacral spondylosis without myelopathy Generalized anxiety disorder ([facility]) Generalized anxiety disorder Chronic diastolic heart failure ([facility]) Chronic diastolic heart failure Type 2 diabetes mellitus with diabetic chronic kidney disease ([facility]) Chronic kidney disease, stage 2 (mild) Medicare annual wellness visit, subsequent- Primary Stage 3a chronic kidney disease (HCC) ([facility]) Type 2 diabetes mellitus with diabetic chronic kidney disease ([facility]) Non-healing ulcer of buttock, limited to breakdown of skin ([facility])- Primary Type 2 diabetes mellitus with hyperglycemia, without long-term current use of insulin ([facility]) Essential hypertension, benign ([facility]) Essential hypertension, benign Lumbar spondylosis Lumbosacral spondylosis without myelopathy Chronic diastolic heart failure ([facility]) Chronic diastolic heart failure Paroxysmal A-fib ([facility] Stage 3a chronic kidney disease (HCC) ([facility]) Type 2 diabetes mellitus with diabetic chronic kidney disease ([facility]) Generalized anxiety disorder ([facility]) Generalized anxiety disorder documented in this encounter [facility] general Narrative - Reported* Type Description Date Medical History diabetes mallitus Medical History high blood pressure Medical History high cholesterol Surgical History b/l knee [address] [place] [address] Cases Live Other Hospital Discharge instructions No data available for this section [facility] Progress note No data available for this section [facility] Summary Purpose Family History Relationship Condition Age at Onset Recorded Date/T christine father Unknown mother Unknown Advance Directives Advance Directive Response Recorded Date/ Time Advance Directives No August 6:43pm Advance Directive Response Recorded Date/ Time Advance Directives No August 5:43pm Chief Complaint and Reason for Visit Chief Complaint g30.1 Chief Complaint Admit Date Unknown October 15, 2024 11:35am Additional Source Comments (unrecognized sect ion and content) No Status Records FoundNo Status Records FoundNo Status Records FoundNo Status Records FoundNo Status Records FoundNo Status Records FoundNo Status Records FoundNo Status Records FoundNo Status Records Found INFORMATION SOURCE (unrecogn ized section and content) DATE CREATED AUTHOR 06/21/2018 [facility] DATE CREATED AUTHOR AUTHOR'S ORGANIZ ATION 02/23/[address] [facility] DATE CREATED AUTHOR AUTHOR'S ORGANIZ ATION 05/30/2024 [facility] DATE CREATED AUTHOR AUTHOR'S ORGANIZ ATION 06/03/2024 [facility] DATE CREATED AUTHOR AUTHOR'S ORGANIZ ATION 06/23/2024 [facility] DATE CREATED AUTHOR AUTHOR'S ORGANIZ ATION 09/07/2024 [facility] DATE CREATED AUTHOR AUTHOR'S ORGANIZ ATION 10/17/2024 [facility] DATE CREATED AUTHOR AUTHOR'S ORGANIZ ATION 10/30/2024 [facility] DATE CREATED AUTHOR AUTHOR'S ORGANIZ ATION 11/07/2024 [facility] Care Teams (unrecognized sec tion and content) Team Status: Inactive Member Role Status Dates ISAI Davis Attending Provider Active Team Status: Active Member Role Status Dates Ramon Martines MD Primary Care Provider Active Team Status: Inactive Member Role Status Dates Jose Eduardo Murray DO Attending Provider Active Ramon Martines MD Primary Care Provider Active 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 Start Date End Date Ramon Martines MD [address] [place] [phone] PCP - General Family Medicine 12/13/23 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 Start Date End Date Ramon Martines MD [address] [place] [phone] PCP - General Family Medicine 12/13/23 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 Start Date End Date Ramon Martines MD [address] [place] [phone] PCP - General Family Medicine 12/13/23 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 Start Date End Date Ramon Martines MD [address] [place] [phone] PCP - General Family Medicine 12/13/23 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 Start Date End Date Ramon Martines MD [address] [place] [phone] PCP - General Family Medicine 12/13/23 Team Status: Inactive Member Role Status Dates Ranjeet Clarke DO Attending Provider Active S tart: October 15, 2024 End: October 15, 2024 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 Start Date End Date Ramon Martines MD [address] [place] [phone] PCP - General Family Medicine 12/13/23 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 Start Date End Date Ramon Martines MD [address] [place] [phone] PCP - General Family Medicine 12/13/23 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 Reason Comments Med Refill FOR RECORDS PERTAINING TO PATIENTS WHO ARE [...] BE BASED ON THE PRIMARY CLINICAL RECORDS. [facility] [employer] [facility]. provides no warranty or guarantee of the accuracy or completeness of information in this document.
--- NOTE | 2024-11-16 22:10 | PC.NURSE ---
Weakness in ext. when asked to raise them off the bed
--- NOTE | 2024-11-16 22:15 | ECG_ITS ---
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
--- NOTE | 2024-11-16 22:16 | ED.GENADUL1 ---
HPI HPI - General Adult General Chief complaint: Syncope Stated complaint: fall Time Seen by Provider: 11/16/24 22:00 Source: patient Mode of arrival: ambulance Limitations: no limitations History of Present Illness HPI narrative: Weak and fell Patient was moving over to the commode in order to sit down, so the could assist him with changing his pull-up, treatment saturated from urinating throughout the day. He never had a bowel movement today. And he denied having the urge to have 1 tonight when this event occurred. He said that his legs felt weak and rather than just quickly giving out, sort of slowly lost their strength which caused him to ease down toward the commode and eventually get to the floor. EMS was called for a lift assist but when they evaluated the patient they found him to be hypotensive. They reported that his systolic blood pressure was in the 50s. A peripheral IV was started the patient was given approximately 500 mL of normal saline IV fluid before arrival to our emergency department. By the time he arrived his blood pressure was normal. On questioning, the patient has been eating and drinking normally, taking normal amounts of fluid, he does occasionally feel as if his legs are weak but today's episode was unusual for him. No headache, blurred vision, dizziness. No recent cough or cold symptoms. No recent illness or injury. He denied any injury during this fall tonight. He denied hitting his head or injuring his neck or back, injuring his torso or any extremities. At this point he has no complaints is present during the HPI and offer some detail of what she saw during tonight's episode but has no additional abnormalities regarding symptomatology to add. She told me that his current catheter was placed November 11. He has had indwelling Blank catheter for a long time . Related Data Home Medications ?Medication ?Instructions ?Recorded ?Confirmed aspirin 81 mg tablet,delayed 81 mg PO DAILY 03/27/23 10/15/24 release donepezil 10 mg tablet (Aricept) 10 mg PO DAILY 03/27/23 10/15/24 isosorbide mononitrate 60 mg 60 mg PO DAILY 03/27/23 10/15/24 tablet,extended release 24 hr latanoprost 0.005 % eye drops 1 drp ophthalmic (eye) DAILY 03/27/23 10/15/24 lisinopril 20 1 tab PO DAILY 03/27/23 10/15/24 mg-hydrochlorothiazide 25 mg tablet lovastatin 40 mg tablet 40 mg PO DAILY 03/27/23 10/15/24 metformin 500 mg tablet 500 mg PO DAILY 03/27/23 10/15/24 tamsulosin 0.4 mg capsule 0.8 mg PO DAILY 03/27/23 10/15/24 vitamins A,C,O-iwjv-udjcrd 4,296 2 cap PO DAILY 03/27/23 10/15/24 mcg-226 mg-90 mg capsule (PreserVision AREDS) zinc 50 mg tablet 50 mg PO DAILY 10/13/23 10/15/24 citalopram 10 mg tablet 10 mg PO QAM 10/17/23 10/15/24 hydralazine 50 mg tablet 50 mg PO TID 10/17/23 10/15/24 oxybutynin chloride 15 mg 15 mg PO QDAY 10/17/23 10/15/24 tablet,extended release 24 hr naproxen 500 mg tablet 500 mg PO DAILY PRN pain 10/15/24 10/15/24 sennosides 8.6 mg tablet (senna) 8.6 mg PO TID 10/15/24 10/15/24 Previous Rx's ?Medication ?Instructions ?Recorded sodium chloride 1,000 mg soluble 1,000 mg PO TID #0 tabs 10/17/23 tablet cephalexin 500 mg capsule 500 mg PO TID 7 days #21 caps 10/15/24 ondansetron 4 mg disintegrating 4 mg PO Q6H PRN nausea and 10/15/24 tablet vomiting #20 tabs Allergies Allergy/AdvReac Type Severity Reaction Status Date / Time No Known Drug Allergies Allergy Verified 11/16/24 21:55 Opioid HPI Opioid Management Most Recent Opioid Data: Last Pain Scale 8 09/02/24 11:41 09/02/24 [facility] Medical History (Updated 11/16/24 @ 23:26 by Dao Juárez) Senile dementia ?F03.90 - Unspecified dementia, unspecified severity, without behavioral disturbance, psychotic disturbance, mood disturbance, and anxiety (ICD-10) CAD (coronary artery disease), [place] coronary artery ?I25.10 - Atherosclerotic heart disease of [place] coronary artery without angina pectoris (ICD-10) Chronic heart failure with preserved ejection fraction (HFpEF) ?I50.32 - Chronic diastolic (congestive) heart failure (ICD-10) Benign essential hypertension ?I10 - Essential (primary) hypertension (ICD-10) Paroxysmal atrial fibrillation ?I48.0 - Paroxysmal atrial fibrillation (ICD-10) Type 2 diabetes mellitus with hyperglycemia ?E11.65 - Type 2 diabetes mellitus with hyperglycemia (ICD-10) Acute hyponatremia ?E87.1 - Hypo-osmolality and hyponatremia (ICD-10) Lumbar stenosis with neurogenic claudication ?M48.062 - Spinal stenosis, lumbar region with neurogenic claudication (ICD-10) Kidney stone on right side ?N20.0 - Calculus of kidney (ICD-10) Degenerative disc disease Skin cancer ?C44.90 - Unspecified malignant neoplasm of skin, unspecified (ICD-10) Prostate cancer ?C61 - Malignant neoplasm of prostate (ICD-10) Postsurgical cardiac pacemaker in situ ?Z95.0 - Presence of cardiac pacemaker (ICD-10) Surgical History History of cholecystectomy ?Z90.49 - Acquired absence of other specified parts of digestive tract (ICD-10) History of cataract surgery ?Z98.49 - Cataract extraction status, unspecified eye (ICD-10) History of bilateral knee replacement ?Z96.653 - Presence of artificial knee joint, bilateral (ICD-10) Family History Brother Family history of myocardial infarction Family history of hypertension Family history of diabetes mellitus Mother Family history of hypertension Family history of diabetes mellitus Sister Family history of diabetes mellitus Social History Within the past year, how often did you have a drink containing alcohol: never Score interpretation: A score less than 4 is consistent with normal alcohol consumption. Smoking status: Never smoker Non-prescribed substance use: denies use Previous occupational history: [employer] Known occupational exposures/hazards: No Highest level of school completed/degree received: high school graduate Are you now , , , , never or living with a partner: In a typical week, how many times do you talk on the telephone with family, friends, or neighbors: 3 or more times per week How often do you get together with friends or relatives: 3 or more times per week How often do you attend christian or latter-day services: 4 or more times per year Do you belong to any clubs or organizations such as christian groups unions, fraternal or athletic groups, or school groups: no Total score: 3 Score interpretation: A score of greater than or equal to 2 indicates the lowest level of social isolation. Little interest or pleasure in doing things: not at all Feeling down, depressed, or hopeless: not at all Feel stressed/tense/nervous/anxious/difficulty sleeping: not at all Do you think of yourself as: straight/heterosexual Gender Identity: male Exam Narrative Exam Narrative: Nurses notes and vital signs reviewed and patient is not hypoxic. afebrile General: Well-appearing and in no apparent distress. Skin: Warm, dry, no pallor noted. Head: Normocephalic, atraumatic. Neck: Supple, non-tender. Eye: Pupils are equal, round and EOMI. No scleral icterus. Ears, Nose, Mouth, and Throat: Oral mucosa is moist Cardiovascular: Regular Rate and Rhythm without murmur, gallop or rub. Respiratory: No accessory muscle use or respiratory distress. Lungs are clear to auscultation, no wheezing, rales or rhonchi Musculoskeletal: normal ROM, no calf or popliteal tenderness, no lower extremity edema/swelling GI: Abdomen is soft, non-distended. Normal bowel sounds. No tenderness to palpation. No rebound, guarding, or rigidity noted. Neurological: A&O x4. No cranial nerve dysfunction observed. No truncal ataxia. Moves all extremities. Sensation intact. Psychiatric: Cooperative and interactive. Normal mood and affect. Constitutional Vital Signs, click to edit/add: Last Vital Signs Temp 98.7 F 11/16/24 21:51 Pulse 77 11/16/24 23:10 Resp 18 11/16/24 23:10 BP 99/41 L 11/16/24 23:00 Pulse Ox 94 L 11/16/24 23:10 O2 Del Method Room Air 11/16/24 21:51 Course Vital Signs Vital signs: Vital Signs Temperature 98.7 F 11/16/24 21:51 Pulse Rate 79 11/16/24 21:51 Respiratory Rate 18 11/16/24 21:51 Blood Pressure 142/64 H 11/16/24 21:51 Pulse Oximetry 95 11/16/24 21:51 Oxygen Delivery Method Room Air 11/16/24 21:51 Temperature 98.7 F 11/16/24 21:51 Pulse Rate 77 11/16/24 23:10 Respiratory Rate 18 11/16/24 23:10 Blood Pressure 99/41 L 11/16/24 23:00 Pulse Oximetry 94 L 11/16/24 23:10 Oxygen Delivery Method Room Air 11/16/24 21:51 Medical Decision Making MDM Narrative Medical decision making narrative: Patient was placed on equipment monitor phototypesetting and EKG obtained. Blood drawn and sent for evaluation. Urine also ordered to be obtained from his Blank catheter and sent for testing. Although the patient's blood pressure had normalized by the time he arrived to the ED and he was afebrile, he does have sign of infection with elevated white blood cell count of 17.8, left shift noted and urinalysis which shows positive nitrites and large leukocyte esterase with 10-20 white blood cells and large urine bacteria. Cultures currently pending. On review of his previous cultures it was noted that he had Pseudomonas on 3 of the recent cultures. For some reason the urine culture that was triggered on his October 15, 2024 urinalysis was later canceled. Therefore I do not have a result of the primary pathogen at that time. Due to the patient's history of Pseudomonas associated urinary tract infection, I ordered the patient to receive IV ciprofloxacin. The normal saline to have been started by EMS, was disconnected shortly after he arrived to the emergency department. I asked the emergency department nurse to give him the rest of that fluid, since his kidney function has acutely worsened. This acute kidney injury may be secondary to a combination of factors including acute UTI and dehydration. Urine culture is pending. The patient will be admitted to medical surgical floor on observation basis to receive IV antibiotics, normal saline IV fluid, monitoring of his blood pressure and reevaluation of his labs tomorrow to determine if his acute kidney injury has improved. Pt and spouse are agreeable to this plan. Message was sent to the on-call telehospitalist to discuss admission. I called and spoke with Katya Pearson, the telehospitalist, who agreed to admit this patient after we discussed his case. Lab Data Lab results reviewed: Yes I reviewed the patient's lab results Labs: Lab Results 11/16/24 11/16/24 11/16/24 Range/Units 22:04 22:34 22:35 WBC 17.8 H (4.0-11.0) 10^3/uL RBC 3.35 L (4.70-6.10) 10^6/uL Hgb 9.2 L (14.0-18.0) g/dL Hct 28.4 L (42.0-54.0) % MCV 84.8 (80.0-94.0) fL MCH 27.5 (25.9-34.0) pg MCHC 32.4 (29.9-35.2) g/dL RDW 13.8 (11.0-15.0) % Plt Count 338 (150-450) 10^3/uL MPV 9.4 L (9.5-13.5) fL Neut % (Auto) 82.7 H (43.0-75.0) % Lymph % (Auto) 7.6 L (20.5-60.0) % [place] % (Auto) 7.7 (1.7-12.0) % Eos % (Auto) 1.2 (0.9-7.0) % Baso % (Auto) 0.4 (0.2-2.0) % Neut # (Auto) 14.7 H (1.4-6.5) 10^3/uL Lymph # (Auto) 1.4 (1.2-3.8) 10^3/uL [place] # (Auto) 1.4 H (0.3-0.8) 10^3/uL Eos # (Auto) 0.2 (0.0-0.7) 10^3/uL Baso # (Auto) 0.1 (0.0-0.1) 10^3/uL Abs Immat Gran (auto) 0.07 H (0.00-0.03) 10^3/uL Imm/Tot Granulo (auto) 0.4 (0.0-0.5) % Sodium 134 L (136-145) mmol/L Potassium 4.4 (3.5-5.1) mmol/L Chloride 97 L (98-107) mmol/L Carbon Dioxide 32.8 H (21.0-32.0) mmol/L Anion Gap 8.6 BUN 27.0 H (7.0-18.0) mg/dL Creatinine 1.48 H (0.70-1.30) mg/dL Est GFR ( Amer) 55 L (>=60 mL/min/1.73m^2) Est GFR (Non-Af Amer) 45 L (>=60 mL/min/1.73m^2) BUN/Creatinine Ratio 18.2 Glucose 142 H (74-106) mg/dL Lactate 1.7 (0.4-2.0) mmol/L Calcium 8.6 (8.5-10.1) mg/dL Total Bilirubin 0.4 (0.2-1.0) mg/dL AST 17 (15-37) U/L ALT 16 (16-63) U/L Alkaline Phosphatase 119 H (46-116) U/L Troponin I High Sens 10.3 (4.0-76.1) pg/mL NT-Pro-B Natriuret Pep 1978.0 H* (<=1800.0) pg/mL Total Protein 6.5 (6.4-8.2) g/dL Albumin 2.8 L (3.4-5.0) g/dL Globulin 3.7 g/dL Albumin/Globulin Ratio 0.8 Urine Color Lt. yellow (YELLOW) Urine Clarity Cloudy A (CLEAR) Urine pH 7.0 (5.0-9.0) Ur Specific [place] 1.010 (1.005-1.025) Urine Protein 30 A (NEG/TRACE) mg/dL Urine Glucose (UA) Negative (NEGATIVE) mg/dL Urine Ketones Negative (NEGATIVE) mg/dL Urine Occult Blood Trace-i (NEGATIVE) Urine Nitrite Positive A (NEGATIVE) Urine Bilirubin Negative (NEGATIVE) Urine Urobilinogen 0.2 (0.2-1.0) EU/dL Ur Leukocyte Esterase Large A (NEGATIVE) Urine RBC 0-2 (0-2) #/HPF Urine WBC 10-20 A (NONE SEEN) #/HPF Ur Squamous Epith Cells None seen (NONE/RARE) #/LPF Urine Crystals None seen (None Seen) #/HPF Urine Bacteria Large A (NONE SEEN) #/HPF Urine Casts None seen (NONE SEEN) #/LPF Urine Mucus None seen (NONE SEEN) Ur Culture Indicated? Yes ECG Data Attestation: I personally reviewed and interpreted this ECG as follows: Interpretation: EKG interpretation: Emergency Department physician interpretation. Electronically paced rhythm with heart rate 76 bpm. Widened QRS was present on the EKG obtained October 13, 2023 and compared to today's EKG it is unchanged Discharge Plan Discharge Chief Complaint: Syncope Clinical Impression: Urinary tract infection, Dehydration, Sepsis, Acute kidney injury Patient Disposition: Admitted as Observation Time of Disposition Decision: 23:26
[2024-11-16 22:42] LABS: Bilirubin Urine NEGATIVE (NEGATIVE); Blood Urine TRACE-I (NEGATIVE); Clarity Urine CLOUDY (CLEAR); Color Urine LT. YELLOW (YELLOW); Glucose Urine UA NEGATIVE (NEGATIVE); Ketones Urine NEGATIVE (NEGATIVE); Leukocyte Esterase Urine LARGE (NEGATIVE); Nitrite Urine POSITIVE (NEGATIVE); Protein Urine 30 mg/dL (NEG/TRACE); Urobilinogen Urine 0.2 EU/dL (0.2-1.0)
[2024-11-16 22:45] LABS: Basophils Absolute Auto 0.1 10^3/uL (0.0-0.1); Basophils Percent Auto 0.4 % (0.2-2.0); Eosinophils Absolute Auto 0.2 10^3/uL (0.0-0.7); Eosinophils Percent Auto 1.2 % (0.9-7.0); Hematocrit 28.4 % (42.0-54.0); Hemoglobin 9.2 g/dL (14.0-18.0); Immature Granulocytes Abs Auto 0.07 10^3/uL (0.00-0.03); Immature Granulocytes Pct Auto 0.4 % (0.0-0.5); Lymphocytes Absolute Auto 1.4 10^3/uL (1.2-3.8); Lymphocytes Percent Auto 7.6 % (20.5-60.0); Mean Corpuscular HGB Conc 32.4 g/dL (29.9-35.2); Mean Corpuscular Hemoglobin 27.5 pg (25.9-34.0); Mean Corpuscular Volume 84.8 fL (80.0-94.0); Mean Platelet Volume 9.4 fL (9.5-13.5); Monocytes Absolute Auto 1.4 10^3/uL (0.3-0.8); Monocytes Percent Auto 7.7 % (1.7-12.0); Neutrophils Absolute Auto 14.7 10^3/uL (1.4-6.5); Neutrophils Percent Auto 82.7 % (43.0-75.0); Platelet Count 338 10^3/uL (150-450); Red Blood Count 3.35 10^6/uL (4.70-6.10); Red Cell Distribution Width 13.8 % (11.0-15.0); White Blood Count 17.8 10^3/uL (4.0-11.0)
[2024-11-16 22:46] LABS: Bacteria Urine LARGE #/HPF (NONE SEEN); Cast Seen? NONE SEEN #/LPF (NONE SEEN); Crystals Seen? None Seen #/HPF (None Seen); Mucus Urine NONE SEEN (NONE SEEN); RBC Urine 0-2 #/HPF (0-2); Squamous Epithelial Cell Urine NONE SEEN #/LPF (NONE/RARE); Urine Culture Indicated YES
[2024-11-16 23:07] LABS: Alanine Aminotransferase 16 U/L (16-63); Albumin Globulin Ratio 0.8; Albumin Level 2.8 g/dL (3.4-5.0); Alkaline Phosphatase 119 U/L (46-116); Anion Gap 8.6; Aspartate Amino Transferase 17 U/L (15-37); BUN Creatinine Ratio 18.2; Bilirubin Total 0.4 mg/dL (0.2-1.0); Calcium 8.6 mg/dL (8.5-10.1); Carbon Dioxide 32.8 mmol/L (21.0-32.0); Chloride 97 mmol/L (98-107); Estimated GFR (African America 55 (>=60 mL/min/1.73m^2); Estimated GFR (Non-African Ame 45 (>=60 mL/min/1.73m^2); Globulin 3.7 g/dL; Glucose 142 mg/dL (74-106); Potassium 4.4 mmol/L (3.5-5.1); Sodium 134 mmol/L (136-145); Total Protein 6.5 g/dL (6.4-8.2); Troponin I High Sensitivity 10.3 pg/mL (4.0-76.1)
[2024-11-16 23:57] LABS: Lactate/Lactic Acid 1.7 mmol/L (0.4-2.0)
[2024-11-17] VITALS (21 sets, daily range): BP systolic 115–159; BP diastolic 58–85; PULSE 75–85; TEMP 32.7–37.4; O2SAT 90–94; BMI 26.1
[2024-11-17] MEDS: CIPROFLOXACIN IN 5 % DEXTROSE 400 MG/200 ML PREMIX 200 MG IV (00:11)
--- OUTSIDE RECORDS SUMMARY | 2024-11-17 00:48 | XMS_ITS | CCD ---
Author Organization [facility] Care Team Providers Care Body Team Member Name Role Phone PHYSICIAN, DEFAULT Unavailable Unavailable PHYSICIAN, DEFAULT Unavailable Unavailable SNEHA, DARRIN Unavailable Unavailable PHYSICIAN, DEFAULT Unavailable Unavailable PHYSICIAN, DEFAULT Unavailable Unavailable SNEHA, DARRIN Unavailable Unavailable UNKNOWN, PROVIDER Unavailable Unavailable UNKNOWN, PROVIDER Unavailable Unavailable SNEHA, DARRIN Unavailable Unavailable RAMON MARTINES Unavailable Unavailable ISAI Campo Attending Provider Sanaz Campo Unavailable DO Jose Eduardo Murray Attending Provider MD Ramon Martines Primary Care Provider [phone] BOBBI, DR RAMON Chen Primary Care Unavailable [...] Care Unavailable RAMON MARTINES Primary Care Physician [phone] MIKE HILARIO Attending Unavailable HARRY, MIKE Referring Unavailable HARRY, IMKE Attending Unavailable HARRY, MIKE Referring Unavailable HARRY, [...] Unavailable Ramon Martines MD Primary Care Provider [phone] Dyana STEPHENSON, Soy Scott Attending Unavailable Katko, [...] Date of Onset Reaction(s) Facility (1 source) 70236,00 Drug allergy (disorder) 11-15-[address] [facility] Repository Medications Current Medications Medication Drug [...] Start: 07-19-2023 take 1 capsule by mo [facility] in the morning gabapentin (Neurontin) 100 MG [...] 60 mg by mouth. 05/05/2023 Active Isosorbide [place] itrate ER Active latanoprost (10 sources) Prostaglandin [...] for 7 day(s), 85 gm, Refill(s) 0, [facility], 177, cm, 05/31/24 10:47:00 EDT, Height/Length [...] Daily, # 60 tab(s), Refills(s) 11, Pharmacy: [facility], 177, cm, 01/30/24 11:11:00 EDT, Height/Length [...] (1 source) PreserVision ARE DS Active sennosides, [facility] 8.6 mg oral capsule (13 sources) Start: [...] disease (16 sources) Atherosclerotic heart disease of [place] coronary artery with unstable angina pectoris; Translations: [...] shelter (current) use of antithrombotics/antip latelets; Translations: [CORRECTION (CURRENT) USE OF ANTITHROMBOTICS/ANTIP LATELETS] Onset: 05-29-2018 Episodic Other aftercare (2 sources) skein yarn drier (current) use of aspirin; Translations: [VICE PRESIDENT RISK MANAGEMENT (CURRENT) USE OF ASPIRIN] Onset: 05-29-2018 Episodic Other aftercare (1 source) Other nursing center tutor (current) drug therapy; Translations: [OTH CORRECTION CURRENT DRUG THERAPY] Onset: 12-28-2022 Episodic Other aftercare (1 source) shelter (current) use of oral hypoglycemic drugs; Translations: [VICE PRESIDENT RISK MANAGEMENT USE ORAL HYPOGLYCEMIC DX] Onset: 12-28-2022 Episodic [...] / UNK(Unknown) Onset: 05-29-2018 Unclassified (1 source) skein yarn drier (current) use of oral hypoglycemic drugs; Translations: [VICE PRESIDENT RISK MANAGEMENT (CURRENT) USE OF ORAL HYPOGLYCEMIC DRUGS] Onset: [...] current use of drug therapy; Translations: [Other fci (current) drug therapy] Onset: 12-13-2023 12-13-2023 Episodic Other aftercare (7 sources) Patient encounter status; Translations: [Other nursing center tutor (current) drug therapy] Onset: 12-13-2023 12-13-2023 Episodic Other gastrointestinal disorders (13 sources) Chronic constipation; Translations: [Other constipation] Onset: 06-04-2024 06-04-2024 Episodic Results Test Name Value Interpretation Reference Range Facility Urine Cultureon 10-15-2024 Bacteria identified Cx Nom (U) >100,000 colonies/ml mixed bacterial skin contaminants including mixed gram negative bacilli - 2 Days PERFORMED BY: [place] [id number] PATHOLOGIST SCARIFIER OPERATOR ANTOINE AHUMADA M.D. Normal [facility] Comment on above: Performed By: #### CUU #### [place] [id number] [facility] Ambulatory Visit Summaryon 1 Ambulatory Visit [...] 11:00 AM EST Where: [facility] [address] [place] [address] [place] [address]- Medications What How Much When Instructions New miconazole topical (miconazole topical 2% powder) 1 Application Topical 2 times a day Duration: 7 Days Pickup at [facility] Unchanged aspirin (aspirin 81 mg Oral [...] (Zinc) By Mouth Every day Pharmacy Information [facility]: [address] [place], [place] [id number] [phone] Allergies No Known Allergies Problems Ongoing - [...] for choosing us for your care. Normal [facility] Ambulatory Visit Summaryon 1 Ambulatory Visit [...] 11:00 AM EDT Where: [facility] [place] [id number]- Medications What How Much When Instructions Unchanged [...] you for choosing us for your care. [facility] Ambulatory Visit Summaryon 0 06-21-2024 Ambulatory Visit [...] 11:00 AM EDT Where: [facility] [address] [place] [address]- Medications What How Much When Instructions Unchanged [...] for choosing us for your care. Normal [facility] ALL BASIC METABOLIC PANELon 06-04-2024 Anion gap [Moles/Vol] 8.5 mmol/L [facility] Calcium [Mass/Vol] 9.0 mg/dL 8.5 - 10.1 mg/dL [facility] Chloride [Moles/Vol] 92 mmol/L Low 98 - 107 mmol/L [facility] CO2 [Moles/Vol] 33.6 mmol/L High 21.0 - 32.0 mmol/L [facility] Creatinine [Mass/Vol] 1.23 mg/dL 0.70 - 1.30 mg/dL [facility] GFR/1.73 sq M.predicted CKD-EPI (S/P/Bld) [Vol rate/Area] >60 60 - PINF [facility] Glucose [Mass/Vol] 107 mg/dL High 74 - 106 mg/dL [facility] Interpretation and review of laboratory results Abnormal [facility] Potassium [Moles/Vol] 4.1 mmol/L 3.5 - 5.1 mmol/L [facility] Sodium [Moles/Vol] 130 mmol/L Low 136 - 145 mmol/L [facility] TBH EGFR-NON AF KAZAKH 56 Low 60 - [facility]F [facility] Urea nitrogen [Mass/Vol] 17.0 mg/dL 7.0 - 18.0 mg/dL [facility] Urea nitrogen/Creatin ine [Mass ratio] 13.8 mg/mg [facility] C Urineon 06-02-2024 Bacteria identified Cx [facility] (U) Microbiology PROCEDURE: Urine Culture [R1] [...] Locations R1: This test was performed at: [facility], [address] [place] [address], [address]- , [place], [facility] Comment on above: Performed By: #### [id number] #### [facility] [address] [place] [address] Urology Office/Clinic Noteon 05-31-2024 Urology Office/Clinic Note Urology Office/Clinic Note Chief Complaint Severe incontinence pt wears a condom catheter [facility] Staff 4 month f/u to cysto/uros done 01/30/24. Last seen IO 12/01/23. Dx: hx of prostate cancer *Brachytherapy ~20yrs ago*, incontinence wo sensory awareness OAB, BPH wiht obstruction, hx of UTI. *Tamsulosin 0.8mg BID and increased Oxybutynin ER 20mg qd May 24 pt had blood in his urine and was taken to the [facility] ED and was started on Cefdinir [...] Bladder: condom catheter. Assessment/Plan Residing at [facility]. Pt accompanied by . 1. Gross hematuria (R31.0: Gross hematuria) Pt presented to [facility] ER 05/24/24 with gross hematuria. Started [...] urination, but after he went to [facility] on 10/17/23 the catheter was removed within a week of being there due to his urine having pus and thought he needed treatment for UTI. Treated with antibiotic but does not know which one. reports pt has back issues. States the reason he is at [facility] is due to the inability to walk. [...] Contact Information Deven BUTLER MD, URL [address] [place] [address]- Additional Instructions: Catheter change in 4 weeks Patient Education Indwelling Urinary Catheter Care, Adult I, Shena Taylor, personally scribed for (more content not included)... Normal [facility] Comment on above: Result Comment: Electronically Signed By : Deven BUTLER MD\.br\Date and Time Signed: 05/31/24 11:13 EDT\.br\Electronically Co-Signed By: Shena Taylor\.br\Date and Time Co-Signed: 05/31/24 11:02 EDT\.br\Electronically Co-Signed By: Shena Taylor\.br\Date and Time Co-Signed: 05/31/24 11:07 EDT Office Visiton 04-02-2024 Follow-up visit [id number] Edwin Orourke 1935 Date Provider Department Center 04/02/2024 MIKE CASTILLO [facility] No family history on file Level of Service:99755 NM OFFICE/OUTPATIENT ESTABLISHED LOW MDM [address] [facility] Consent for Procedure/Surger yon 01-30-2024 Consent for Procedure/Surger y [id number]#1.00TIFF Normal [facility] Consent for Treatmenton 01-14 Consent for Treatment [id number]#1.00TIFF [facility] IntraOperative Documentson 0 01-30-2024 IntraOperative Documents [id number]#1.00TIFF [facility] IntraOperative Documents [id number]#1.00TIFF Quinten [facility] Main OR Intraoperative Recor don 01-30-2024 Main OR Intraoperative Record IntraOp Document Type FTURO Summary Primary Physician: Deven BUTLER MD Finalized Date/Time: 01/30/24 11:23:13 Pt. Name: EDWIN OROURKE /Sex: 1935 Male Med Rec #: [id number] Physician: Deven BUTLER MD Financial #: [id number] Pt. Type: O Room/Bed: / Admit/Disch: 01/30/24 [...] Priscilla Enciso Role Performed Surgeon - Primary Dictaphone Mechanic - Primary Scrub - Primary Time In [...] MARKEL Sol RN, Ruthann 01/30/24 11:23 Normal [facility] Main OR Preoperative Recordo n 01-30-2024 Main OR Preoperative Record Holding Area Document Type FTURO Summary Primary Physician: Deven BUTLER MD Finalized Date/Time: 01/30/24 11:20:16 Pt. Name: MYRON OROURKEFRIEDA Zimmerman D.O.B./Sex: 1935 Male Med Rec #: [id number] Physician: Deven BUTLER MD Financial #: [id number] Pt. Type: O Room/Bed: / Admit/Disch: 01/30/24 [...] 11:11 Jaylene Castillo RN 01/30/24 11:20 Normal [facility] Operative Reporton Operative Report Patient: EDWIN [...] oxybutynin ER to 20 mg daily. Normal [facility] Comment on above: Result Comment: Electronically Signed By : Deven BUTLER MD\.br\Date and Time Signed: 01/30/24 11:30 EDT Outpatient Surgery Discharge Instructionon 01-30-2024 Outpatient Surgery Discharge Instruction [id number]#1.00TIFF Normal [facility] Progress Note-Physicianon Progress Note-Physician Patient: EDWIN [...] list: All Problems Arthritis / SNOMED CT 9474582 / Confirmed History of prostate cancer / SNOMED CT 0787229280 / Confirmed Deafness / SNOMED CT 82496597 / Confirmed Diabetes / SNOMED CT 459265195 / Confirmed Glaucoma / SNOMED CT 63599498 / Confirmed Heart disease / SNOMED CT 72138829 / Confirmed Erectile dysfunction / SNOMED CT 8083704157 / Confirmed BPH with urinary obstruction / SNOMED CT 8585198135 / Confirmed Anticoagulated / SNOMED CT 524347667 / Confirmed OAB (overactive bladder) / SNOMED CT 9397897023 / Confirmed Incontinence without sensory awareness / SNOMED CT 8166601082 / Confirmed History of UTI / SNOMED CT 3177794868 / Confirmed Histories Past Medical History: No active or resolved past medical history items have been selected or recorded. Family History: Procedure history: Appendectomy (565862148). CE - Cataract extraction (4240953303). Placement of stent in cardiac conduit (6922035490). Arthroplasty of knee bilateral (99949815). Implantation of radioactive seed into prostate (6667826138). Social History Social & Psychosocial Habits Alcohol [...] We will reevaluate in 4 months. Normal [facility] Comment on above: Result Comment: Electronically Signed By : MÓNICA STEPHENSON, Deven Lyons.idalia\Date and Time Signed: 01/30/24 11:35 EDT Office Visiton 12-26-2023 Follow-up visit [id number] Edwin Orourke 1935 M Date Provider Department Center 12/26/2023 Jose Juan-MIKE HILARIO CARD [facility] No family history on file Level of Service:00732 NM OFFICE/OUTPATIENT ESTABLISHED LOW MDM [address] [facility] Ambulatory Visit Summaryon 0 12-01-2023 Ambulatory [...] MÓNICA STEPHENSON, Deven Zimmerman, URL When: Where: [address] [place] [address]- Medications What How Much When Instructions Unchanged [...] uterus. ? (more content not included)... Normal [facility] Home Recordson 12-01 [facility] Records [id number]#1.00TIFF Normal [facility] Records [id number]#1.00TIFF Normal [facility] Patient Educationon 12-01-19 Patient Education Urology [...] stimulation). ? For women, using a medical technologist hematology to prevent urine leaks. This is a [...] urine. ? (more content not included)... Normal [facility] Urology Office/Clinic Noteon 12-01-2023 Urology Office/Clinic [...] urination but after he went to [facility] on 10/17/23 the catheter was removed within [...] here with his today. Residing at [facility]. 1. History of prostate cancer (Z85.46: Personal history of malignant neoplasm of prostate) PSA: 02/06/20 - <0.05 Latest PSA on file. S/p brachytherapy approx. 20 years ago. 2. Incontinence without sensory awareness (N39.42: Incontinence without sensory awareness) Reports he had a catheter placed in the hospital at the end of 09/2023 due to uncontrolled urination, but after he went to [facility] on 10/17/23 the catheter was removed within [...] had a bowel movement in several days. [facility] staff has been providing pt with laxatives. reports pt has back issues. States the reason he is at [facility] is due to the inability to walk. [...] When Contact Information MÓNICA STEPHENSON, Deven Zimmerman, [address] [address]- Additional Instructions: Scheduling cysto and uro's Patient Education Urinary Incontinence I, Shena Taylor, personally scribed for Dr. Butler on 12/01/2023 10:07:45. Elect (more content not included)... [facility] Comment on above: Result Comment: Electronically Signed By : Deven BUTLER MD\.br\Date and Time Signed: 12/01/23 10:12 EST\.br\Electronically Co-Signed By: Shena Taylor\.br\Date and Time Co-Signed: 12/01/23 10:08 EST Lab Reportson 10-18-2023 Lab Reports [id number]#1.00TIFF [facility] Lab Reportson 10-17-2023 Lab Reports [id number]#1.00TIFF [facility] Lab Reports [id number]#1.00TIFF [facility] Lab Reports [id number]#1.00TIFF [facility] Lab Reports [id number]#1.00TIFF [facility] Lab Reports [id number]#1.00TIFF Normal [facility] Lab Reports [id number]#1.00TIFF Normal [facility] Lab Reports [id number]#1.00TIFF Normal [facility] Lab Reports [id number]#1.00TIFF Normal [facility] Lab Reports [id number]#1.00TIFF Normal [facility] Office Visiton 10-11-2023 Follow-up visit [id number] HavenMyronEdwin R 1935 M Date Provider Department Center 10/11/2023 ЕЛЕНА SALMON [facility] No family history on file Level of Service:77175 NM POSTOP FOLLOW UP VISIT RELATED TO ORIGINAL PX Normal [facility] HPon 10-02-2023 [facility] Electrophysiology Note [...] discontinued due to having ER visit with [facility] for complaints of dizziness and [...] ECG 05/04/2018: Atrial fibrillation, possible old septal SD. ECG 05/28/2018 showed sinus rhythm with 1st degree AV block and PAC. Possible anteroseptal SD. ECG today 03/21/2019: sinus rhythm with 1st [...] alcohol abuse, Hematolog (more content not included)... [facility] NURSNOTEon 10-02-2023 NURSNOTE RN educated pt on d/ c instructions. RN encouraged pt to voice any questions or concerns. Pt verbalizes no questions or concerns at this time. Pt was wheeled off of unit with all of belongings. [facility] NURSNOTE CHG wipes and betadi ne nasal swabs completed. [facility] Orders Onlyon 10-02-2023 Orders Only [id number] Edwin Orourke 1935 M Date Provider Department Center 10/02/2023 EMETERIO GONZALEZ [facility] No family history on file Normal [facility] Orders Onlyon 09-25-2023 Orders Only [id number] Edwin Orourke 1935 M Date Provider Department Center 09/25/2023 EMETERIO GONZALEZ [facility] No family history on file Normal [facility] Telemedicineon 08-22-2023 Telemedicine [id number] Edwin Orourke R 1935 M Date Provider Department Center 08/22/2023 MIKE CASTILLO [facility] No family history on file Level of Service:28047 NM PHYS/QHP TELEPHONE EVALUATION 11-[address] [facility] 36on 07-27-[address] [facility] PROF CHEM 8 (BAS METB)on Anion gap [Moles/Vol] 10.7 mmol/L Normal [facility] Comment on above: Performed By: #### TSH #### [facility] [address] [place] [address] [address] Yue Vega Calcium [Mass/Vol] 9.4 mg/dL Normal 8.5-10.1 [facility] Comment on above: Performed By: #### TSH #### [facility] [address] [place] [address] [address] Yue Vega Chloride [Moles/Vol] 97 mmol/L Critically low 98-107 [facility] Comment on above: Performed By: #### TSH #### [facility] [address] [place] [address] [address] Yue Vega CO2 [Moles/Vol] 31.8 mmol/L Normal 21.0-32.0 [facility] Comment on above: Performed By: #### TSH #### [facility] [address] [place] [address] [address] Yue Vega Creatinine [Mass/Vol] 1.23 mg/dL Normal 0.70-1.30 [facility] Comment on above: Performed By: #### TSH #### [facility] [address] [place] [address] [address] Yue Vega EGFR-AF KAZAKH >60 Normal >=60 [facility] Comment on above: Performed By: #### TSH #### [facility] [address] [address] [address] Yue Vega EGFR-NON AF KAZAKH 56 mL/min/1.73m2 Critically low >=60 [facility] Comment on above: Performed By: #### TSH #### [facility] [address] [address] [address] Yue Vega Glucose [Mass/Vol] 153 mg/dL Critically high 74-106 [facility] Comment on above: Performed By: #### TSH #### [facility] [address] [address] [address] Yue Vega Potassium [Moles/Vol] 4.5 mmol/L Normal 3.5-5.1 [facility] Comment on above: Performed By: #### TSH #### [facility] [address] [address] [address] Yue Vega Sodium [Moles/Vol] 135 mmol/L Critically low 136-145 [facility] Comment on above: Performed By: #### TSH #### [facility] [address] [place] [address] [address] Yue Vega Urea nitrogen [Mass/Vol] 22.0 mg/dL Critically high 7.0-18.0 [facility] Comment on above: Performed By: #### TSH #### [facility] [address] [address] [address] Yue Vega Urea nitrogen/Creatin ine [Mass ratio] 17.9 mg/mg Normal [facility] Comment on above: Performed By: #### TSH #### [facility] [address] [address] [address] Yue Vega Creatinine (Bld) [Mass/Vol]O rdered By: Suzi Murray on 01-06-2023 Creatinine [Mass/Vol] 1.2 mg/dL 0.6-1.3 [facility] Comment on above: ER/ESD physician is notified/shown all I STAT results.Critical values may be confirmed by laboratory testing ifdeemed necessary by ER attending doctor. BNPon 12-26-2022 Natriuretic peptide B (Bld) [Mass/Vol] 483.0 pg/mL Normal <=1,800.0 [facility] Comment on above: Performed By: #### TSH #### [facility] [address] [address] [address] Yue Vega CARDIAC MAMTA ADMITon 023 CK [Catalytic activity/Vol] 121 U/L Normal 39-308 [facility] Comment on above: Performed By: #### TSH #### [facility] [address] [place] [address] Dr. Yue Vega CK.MB [Mass/Vol] 1.73 ng/mL Normal <=3.60 [facility] Comment on above: Performed By: #### TSH #### [facility] [address] [address] [address] Yue Vega HSTROP 11.9 pg/mL Normal 4.0-76.1 [facility] Comment on above: Result Comment: CUT-OFF POINTS HAVE BEEN ESTABLISHED BASED ON THE FOURTH UNIVERSAL DEFINITIONS OF MYOCARDIAL INFARCTION. THE UPPER REFERENCE LIMIT (URL) OF TROPONIN, DEFINED THE 99TH PERCENTILE OF cTnI DISTRIBUTION IN A REFERENCE POPULATION, HAS BEEN CONFIRMED THE DECISION THRESHOLD FOR SD DIAGNOSIS. Performed By: #### T SH #### [facility] [address] [address] [address] Yue Vega CARI 113 ng/mL Critically high 16-96 [facility] Comment on above: Performed By: #### TSH #### [facility] [address] [address] [address] Yue Vega CBC AUTO DIFFon 12-26-2022 BASO # 0.1 103/ul Normal 0.0-0.1 [facility] Comment on above: Performed By: #### TSH #### [facility] [address] [address] [address] Yue Vega Basophils/100 WBC (Bld) 0.5 % Normal 0.2-2.0 [facility] Comment on above: Performed By: #### TSH #### [facility] [address] [address] [address] Yue Vega EO # 0.0 103/ul Normal 0.0-0.7 [facility] Comment on above: Performed By: #### TSH #### [facility] [address] [place] [address] Dr. Yue Vega Eosinophils/100 WBC (Bld) 0.3 % Critically low 0.9-7.0 [facility] Comment on above: Performed By: #### TSH #### [facility] [address] [address] [address] Yue Vega Erythrocyte distribution width (RBC) [Ratio] 12.4 % Normal 11.0-15.0 [facility] Comment on above: Performed By: #### TSH #### [facility] [address] [place] [address] Dr. Yue Vega Hematocrit (Bld) [Volume fraction] 42.7 % Normal 42.0-54.0 [facility] Comment on above: Performed By: #### TSH #### [facility] [address] [place] [address] Dr. Yue Vega Hemoglobin (Bld) [Mass/Vol] 14.5 g/dL Normal 14.0-18.0 [facility] Comment on above: Performed By: #### TSH #### [facility] [address] [place] [address] Dr. Yue Vega IG # 0.05 10e3/ul Critically high 0.00-0.[address] [facility] Comment on above: Performed By: #### TSH #### [facility] [address] [address] [address] Yue Vega IG % 0.4 % Normal 0.0-0.5 [facility] Comment on above: Performed By: #### TSH #### [facility] [address] [place] [address] Dr. Yue Vega LYMPH # 1.4 103/ul Normal 1.2-3.8 [facility] Comment on above: Performed By: #### TSH #### [facility] [address] [place] [address] Dr. Yue Vega Lymphocytes/100 WBC (Bld) 10.7 % Critically low 20.5-60.0 [facility] Comment on above: Performed By: #### TSH #### [facility] [address] [place] [address] Dr. Yue Vega MANUAL DIFF REQ NO Normal [facility] Comment on above: Performed By: #### TSH #### [facility] [address] [place] [address] Dr. Yue Vega MCH (RBC) [Entitic mass] 30.7 pg Normal 25.9-34.0 [facility] Comment on above: Performed By: #### TSH #### [facility] [address] [place] [address] Dr. Yue Vega MCHC (RBC) [Mass/Vol] 34.0 g/dL Normal 29.9-35.2 [facility] Comment on above: Performed By: #### TSH #### [facility] [address] [place] [address] Dr. Yue Vega MCV (RBC) [Entitic vol] 90.3 fL Normal 80.0-94.0 [facility] Comment on above: Performed By: #### TSH #### [facility] [address] [place] [address] Dr. Yue Vega MONO # 0.5 103/ul Normal 0.3-0.8 [facility] Comment on above: Performed By: #### TSH #### [facility] [address] [place] [address] Dr. Yue Vega Monocytes/100 WBC (Bld) 4.2 % Normal 1.7-12.0 [facility] Comment on above: Performed By: #### TSH #### [facility] [address] [place] [address] Dr. Yue Vega NEUT # 10.8 103/ul Critically high 1.4-6.5 [facility] Comment on above: Performed By: #### TSH #### [facility] [address] [address] [address] Yue Vega Neutrophils/100 WBC (Bld) 83.9 % Critically high 43.0-75.0 [facility] Comment on above: Performed By: #### TSH #### [facility] [address] [place] [address] Dr. Yue Vega Platelet mean volume (Bld) [Entitic vol] 9.6 fL Normal 9.5-13.5 [facility] Comment on above: Performed By: #### TSH #### [facility] [address] [place] [address] Dr. Yue Vega PLT 223 103/ul Normal 150-450 [facility] Comment on above: Performed By: #### TSH #### [facility] [address] [place] [address] Dr. Yue Vega RBC 4.73 106/ul Normal 4.70-6.10 [facility] Comment on above: Performed By: #### TSH #### [facility] [address] [place] [address] Dr. Yue Vega WBC 12.9 103/ul Critically high 4.0-11.0 [facility] Comment on above: Performed By: #### TSH #### [facility] [address] [place] [address] HEAD WO CONon [...] SUZI NANCE Date: 2022-12-26 14:21 Normal [facility] ER URINE PROFILEon 3 Bilirubin Ql (U) Negative Normal NEGATIVE [facility] Comment on above: Performed By: #### YAMIL UMICRO #### [facility] [address] [place] [address] Dr. Yue Vega Clarity (U) CLEAR Normal CLEAR [facility] Comment on above: Performed By: #### YAMIL UMMELVINRO #### [facility] [address] [place] [address] Dr. Yue Vega Color (U) LT. YELLOW Normal YELLOW [facility] Comment on above: Performed By: #### SERG LOBORO #### [facility] [address] [place] [address] Dr. Yue ALCOCER A micrscopic examina tion will be performed if indicated. Normal [facility] Comment on above: Performed By: #### YAMIL UMMELVINRO #### [facility] [address] [address] [address] Yue Vega Glucose Ql (U) 250 mg/dl Abnormal NEGATIVE [facility] Comment on above: Performed By: #### SERG LOBORO #### [facility] [address] [place] [address] Dr. Yue Vega Hemoglobin Ql (U) Negative Normal NEGATIVE [facility] Comment on above: Performed By: #### YAMIL UMMELVINRO #### [facility] [address] [place] [address] Dr. Yue Vega Ketones Ql (U) Negative Normal NEGATIVE [facility] Comment on above: Performed By: #### YAMIL UMMELVINRO #### [facility] [address] [place] [address] Dr. Yue Vega LEUKOCYTES Negative Normal NEGATIVE [facility] Comment on above: Performed By: #### ERUR, UMICRO #### [facility] [address] [address] [address] Yue Vega Nitrite Ql (U) Negative Normal NEGATIVE [facility] Comment on above: Performed By: #### ERUR, UMICRO #### [facility] [address] [address] [address] Yue Vega pH (U) 7.0 [pH] Normal 5-9 [facility] Comment on above: Performed By: #### ERUR, UMICRO #### [facility] [address] [address] [address] Yue Vega Protein (U) [Mass/Vol] 30 mg/dL Abnormal NEGATIVE/ TRACE [facility] Comment on above: Performed By: #### YAMIL, UMICRO #### [facility] [address] [place] [address] Dr. Yue Vega SPEC GRAVITY 1.015 Normal 1.005-<=1. 025 [facility] Comment on above: Performed By: #### YAMIL UMICRO #### [facility] [address] [address] [address] Yue Vega UR MICRO IND INDICATED Normal [facility] Comment on above: Performed By: #### ERUElsie, UMICRO #### [facility] [address] [place] [address] Dr. Yue Vega Urobilinogen Qn (U) 0.2 {Anat'U}/dL Normal 0.2 - 1.0 [facility] Comment on above: Performed By: #### ERUElsie, UMICRO #### [facility] [address] [address] [address] Yue Vega PROF 14(COMP METB)on 023 Albumin [Mass/Vol] 4.1 g/dL Normal 3.4-5.0 [facility] Comment on above: Performed By: #### TSH #### [facility] [address] [place] [address] Dr. Yue Vega Albumin/Globulin [Mass ratio] 1.1 {ratio} Normal [facility] Comment on above: Performed By: #### TSH #### [facility] [address] [address] [address] Yue Vega ALP [Catalytic activity/Vol] 110 U/L Normal 46-116 [facility] Comment on above: Performed By: #### TSH #### [facility] [address] [address] [address] Yue Vega ALT [Catalytic activity/Vol] 24 U/L Normal 16-63 [facility] Comment on above: Performed By: #### TSH #### [facility] [address] [address] [address] Yue Vega Anion gap [Moles/Vol] 9.5 mmol/L Normal [facility] Comment on above: Performed By: #### TSH #### [facility] [address] [place] [address] Dr. Yue Vega AST [Catalytic activity/Vol] 25 U/L Normal 15-37 [facility] Comment on above: Performed By: #### TSH #### [facility] [address] [place] [address] Dr. Yue Vega Bilirubin [Mass/Vol] 1.2 mg/dL Critically high 0.2-1.0 [facility] Comment on above: Performed By: #### TSH #### [facility] [address] [place] [address] Dr. Yue Vega Calcium [Mass/Vol] 9.3 mg/dL Normal 8.5-10.1 [facility] Comment on above: Performed By: #### TSH #### [facility] [address] [place] [address] Dr. Yue Vega Chloride [Moles/Vol] 96 mmol/L Critically low 98-107 [facility] Comment on above: Performed By: #### TSH #### [facility] [address] [place] [address] Dr. Yue Vega CO2 [Moles/Vol] 29.4 mmol/L Normal 21.0-32.0 [facility] Comment on above: Performed By: #### TSH #### [facility] [address] [address] [address] Yue Vega Creatinine [Mass/Vol] 1.09 mg/dL Normal 0.70-1.30 [facility] Comment on above: Performed By: #### TSH #### [facility] [address] [address] [address] Yue Vega EGFR-AF KAZAKH >60 Normal >=60 [facility] Comment on above: Performed By: #### TSH #### [facility] [address] [address] [address] Yue Vega EGFR-NON AF KAZAKH >60 Normal >=60 [facility] Comment on above: Performed By: #### TSH #### [facility] [address] [address] [address] Yue Vega Globulin (S) [Mass/Vol] 3.8 g/dL Normal [facility] Comment on above: Performed By: #### TSH #### [facility] [address] [address] [address] Yue Vega Glucose [Mass/Vol] 218 mg/dL Critically high 74-106 [facility] Comment on above: Performed By: #### TSH #### [facility] [address] [place] [address] Dr. Yue Vega Potassium [Moles/Vol] 3.9 mmol/L Normal 3.5-5.1 [facility] Comment on above: Performed By: #### TSH #### [facility] [address] [place] [address] Dr. Yue Vega Protein [Mass/Vol] 7.9 g/dL Normal 6.4-8.2 [facility] Comment on above: Performed By: #### TSH #### [facility] [address] [place] [address] Dr. Yue Vega Sodium [Moles/Vol] 131 mmol/L Critically low 136-145 [facility] Comment on above: Performed By: #### TSH #### [facility] [address] [address] [address] Yue Vega Urea nitrogen [Mass/Vol] 19.0 mg/dL Critically high 7.0-18.0 [facility] Comment on above: Performed By: #### TSH #### [facility] [address] [place] [address] Dr. Yue Vega Urea nitrogen/Creatin ine [Mass ratio] 17.4 mg/mg Normal [facility] Comment on above: Performed By: #### TSH #### [facility] [address] [place] [address] Dr. Yue Vega PROTIMEon 12-26-2022 INR Coag (PPP) [Relative time] 1.00 {INR} Normal [facility] Comment on above: Performed By: #### PTT, PT #### [facility] [address] [place] [address] Dr. Yue Vega INR GUIDELINES SEE BELOW Normal [facility] Comment on above: Result Comment: DESIRED INR: 2.0 - 3.0 C ONDITIONS NOT LISTED BELOW 2.5 - 3.5 FOR PROSTHETIC HEART VALVE REPLACEMENT 2.5 - 3.5 RECURRENT THROMBOSIS Performed By: #### P TT, PT #### [facility] [address] [place] [address] Dr. Yue Vega PT Coag (PPP) [Time] 10.6 s Normal 9.0-11.6 [facility] Comment on above: Performed By: #### PTT, PT #### [facility] [address] [place] [address] Dr. Yue Vega PTTon 12-26-2022 aPTT Coag (Bld) [Time] 29.8 s Normal 22.3-36.2 [facility] Comment on above: Performed By: #### PTT, PT #### [facility] [address] [place] [address] Dr. Yue Vega TSHon 12-26-2022 TSH 2.693 uIU/mL Normal 0.358-3.74 0 [facility] Comment on above: Performed By: #### TSH #### [facility] [address] [place] [address] Dr. Yue Vega URINE MICROSCOPIC ONLYon BACTERIA NONE SEEN Normal NONE SEEN [facility] Comment on above: Performed By: #### ERUR, UMICRO #### [facility] [address] [place] [address] Dr. Yue Vega Bacteria identified Cx Nom (U) NOT INDICATED Normal [facility] Comment on above: Performed By: #### ERUR, UMICRO #### [facility] [address] [place] [address] Dr. Yue Vega CAST NONE SEEN Normal NONE SEEN [facility] Comment on above: Performed By: #### ERUR, UMICRO #### [facility] [address] [place] [address] Dr. Yue Vega Crystals LM Nom (Urine sed) NONE SEEN Normal NONE SEEN [facility] Comment on above: Performed By: #### ERUR, UMICRO #### [facility] [address] [place] [address] Dr. Yue Vega Epithelial cells LM Ql (Urine sed) NONE SEEN Normal NONE SEEN /RARE [facility] Comment on above: Performed By: #### YAMIL UMICRO #### [facility] [address] [place] [address] Dr. Yue Vega MUCOUS NONE SEEN Normal NONE SEEN [facility] Comment on above: Performed By: #### ERUR UMICRO #### [facility] [address] [place] [address] Dr. Yue Vega RBC 0-2 Normal 0-2 [facility] Comment on above: Performed By: #### YAMIL UMICRO #### [facility] [address] [place] [address] Dr. Yue Vega WBC NONE SEEN Normal NONE SEEN [facility] Comment on above: Performed By: #### YAMIL UMICRO #### [facility] [address] [place] [address] Dr. Yue Vega XR CHEST 1 Von [...] SAYRA GUILLAUME Date: 2022-12-26 13:12 Normal [facility] METHYLMALONIC ACID (MMA)on 0 12-25-2022 Methylmalonic Acid, Serum 180 nmol/L Normal 0-378 [facility] Comment on above: Performed By: #### MMA2 #### [facility] [address] [place] [address] Dr. Yue Vega TSHon 12-21-2022 TSH 2.790 uIU/mL Normal 0.358-3.74 0 [facility] Comment on above: Performed By: #### TSH #### [facility] [address] [place] [address] Dr. Yue Vega VITAMIN B12on 12-21-2022 Cobalamin (Vitamin B12) [Mass/Vol] 919.0 pg/mL Normal 193.0-986. 0 [facility] Comment on above: Performed By: #### TSH #### [facility] [address] [place] [address] Dr. Yue Vega CBC AUTO DIFFon 09-26-2022 BASO # 0.1 103/ul Normal 0.0-0.1 [facility] Comment on above: Performed By: #### CBC #### [facility] [address] [place] [address] Dr. Yue Vega Basophils/100 WBC (Bld) 0.5 % Normal 0.2-2.0 [facility] Comment on above: Performed By: #### CBC #### [facility] [address] [place] [address] Dr. Yue Vega EO # 0.2 103/ul Normal 0.0-0.7 [facility] Comment on above: Performed By: #### CBC #### [facility] [address] [place] [address] Dr. Yue Vega Eosinophils/100 WBC (Bld) 2.1 % Normal 0.9-7.0 [facility] Comment on above: Performed By: #### CBC #### [facility] [address] [place] [address] Dr. Yue Vega Erythrocyte distribution width (RBC) [Ratio] 12.3 % Normal 11.0-15.0 [facility] Comment on above: Performed By: #### CBC #### [facility] [address] [place] [address] Dr. Yue Vega Hematocrit (Bld) [Volume fraction] 42.0 % Normal 42.0-54.0 [facility] Comment on above: Performed By: #### CBC #### [facility] [address] [place] [address] Dr. Yue Vega Hemoglobin (Bld) [Mass/Vol] 13.9 g/dL Critically low 14.0-18.0 [facility] Comment on above: Performed By: #### CBC #### [facility] [address] [place] [address] Dr. Yue Vega IG # 0.03 10e3/ul Normal 0.00-0.03 [facility] Comment on above: Performed By: #### CBC #### [facility] [address] [place] [address] Dr. Yue Vega IG % 0.3 % Normal 0.0-0.5 [facility] Comment on above: Performed By: #### CBC #### [facility] [address] [place] [address] Dr. Yue Vega LYMPH # 1.9 103/ul Normal 1.2-3.8 [facility] Comment on above: Performed By: #### CBC #### [facility] [address] [place] [address] Dr. Yue Vega Lymphocytes/100 WBC (Bld) 19.8 % Critically low 20.5-60.0 [facility] Comment on above: Performed By: #### CBC #### [facility] [address] [place] [address] Dr. Yue eVga MANUAL DIFF REQ NO Normal [facility] Comment on above: Performed By: #### CBC #### [facility] [address] [place] [address] Dr. Yue Vega MCH (RBC) [Entitic mass] 30.5 pg Normal 25.9-34.0 [facility] Comment on above: Performed By: #### CBC #### [facility] [address] [place] [address] Dr. Yue Vega MCHC (RBC) [Mass/Vol] 33.1 g/dL Normal 29.9-35.2 [facility] Comment on above: Performed By: #### CBC #### [facility] [address] [place] [address] Dr. Yue Vega MCV (RBC) [Entitic vol] 92.3 fL Normal 80.0-94.0 [facility] Comment on above: Performed By: #### CBC #### [facility] [address] [place] [address] Dr. Yue Vega MONO # 0.9 103/ul Critically high 0.3-0.8 [facility] Comment on above: Performed By: #### CBC #### [facility] [address] [place] [address] Dr. Yue Vega Monocytes/100 WBC (Bld) 9.5 % Normal 1.7-12.0 [facility] Comment on above: Performed By: #### CBC #### [facility] [address] [place] [address] Dr. Yue Vega NEUT # 6.4 103/ul Normal 1.4-6.5 [facility] Comment on above: Performed By: #### CBC #### [facility] [address] [place] [address] Dr. Yue Vega Neutrophils/100 WBC (Bld) 67.8 % Normal 43.0-75.0 [facility] Comment on above: Performed By: #### CBC #### [facility] [address] [address] [address] Yue Vega Platelet mean volume (Bld) [Entitic vol] 9.4 fL Critically low 9.5-13.5 [facility] Comment on above: Performed By: #### CBC #### [facility] [address] [address] [address] Yue Vega PLT 264 103/ul Normal 150-450 [facility] Comment on above: Performed By: #### CBC #### [facility] [address] [address] [address] Yue Vega RBC 4.55 106/ul Critically low 4.70-6.10 [facility] Comment on above: Performed By: #### CBC #### [facility] [address] [address] [address] Yue Vega WBC 9.4 103/ul Normal 4.0-11.0 [facility] Comment on above: Performed By: #### CBC #### [facility] [address] [address] [address] Yue Vega GLYCOHEMOGLOBIN A1Con 2021 ADA RECOMMENDATION SEE BELOW Normal [facility] Comment on above: Result Comment: ADA RECOMMENDED LIMIT 4. 0 - 6.0 ADA THERAPEUTIC TARGET < 7.0 ACTION SUGGESTED > 7.0 Performed By: #### A 1C #### [facility] [address] [address] [address] Yue Vega Glucose [Mass/Vol] 169 mg/dL Normal [facility] Comment on above: Performed By: #### A1C #### [facility] [address] [address] [address] Yue Vega HbA1c (Bld) [Mass fraction] 7.5 % Critically high 4.5-6.2 [facility] Comment on above: Performed By: #### A1C #### [facility] [address] [address] [address] Yue Vega LIPID PROFILEon 09-26-2022 CHOL-HDL RATIO NORM SEE BELOW Normal [facility] Comment on above: Result Comment: 3.3 - 4.4 LOW RISK 4.4 - 7.1 AVERAGE RISK 7.1 - 11.0 MODERATE RISK >11.0 HIGH RISK Performed By: #### T SH #### [facility] [address] [address] [address] Yue Vega Cholesterol [Mass/Vol] 134 mg/dL Normal <=200 [facility] Comment on above: Performed By: #### TSH #### [facility] [address] [address] [address] Yue Vega Cholesterol in HDL [Mass/Vol] 51 mg/dL Normal 40-60 [facility] Comment on above: Performed By: #### TSH #### [facility] [address] [address] [address] Yue Vega Cholesterol in LDL [Mass/Vol] 63.4 mg/dL Normal [facility] Comment on above: Performed By: #### TSH #### [facility] [address] [address] [address] Yue Vega Cholesterol.tota l/Cholesterol in HDL [Mass ratio] 2.6 {ratio} Normal [facility] Comment on above: Performed By: #### TSH #### [facility] [address] [address] [address] Yue Vega HDL NORMAL > or = 60 mg/dl - LO W CARDIOVASCULAR RISK <40 mg/dl - HIGH CARDIOVASCULAR RISK Normal [facility] Comment on above: Performed By: #### TSH #### [facility] [address] [address] [address] Yue Vega LDL CALC NORMAL SEE BELOW Normal [facility] Comment on above: Result Comment: <100 mg/dl OPTIMAL 100 - 129 mg/dl NEAR OR ABOVE OPTIMAL 130 - 159 mg/dl BORDERLINE HIGH 160 - 189 mg/dl HIGH >190 mg/dl VERY HIGH Performed By: #### T SH #### [facility] [address] [address] [address] Yue Vega Triglyceride [Mass/Vol] 98 mg/dL Normal <=150 [facility] Comment on above: Performed By: #### TSH #### [facility] [address] [address] [address] Yue Vega VLDL CALC 19.6 mg/dL Normal [facility] Comment on above: Performed By: #### TSH #### [facility] [address] [address] [address] Yue Vega LIVER PROFILEon 09-26-2022 Albumin [Mass/Vol] 3.8 g/dL Normal 3.4-5.0 [facility] Comment on above: Performed By: #### LIPID, BMP, LIVER ### # [facility] [address] [address] [address] Yue Vega Albumin/Globulin [Mass ratio] 0.9 {ratio} Normal [facility] Comment on above: Performed By: #### LIPID, BMP, LIVER ### # [facility] [address] [place] [address] Dr. Yue Vega ALP [Catalytic activity/Vol] 94 U/L Normal 46-116 [facility] Comment on above: Performed By: #### LIPID, BMP, LIVER ### # [facility] [address] [place] [address] Dr. Yue Vega ALT [Catalytic activity/Vol] 34 U/L Normal 16-63 [facility] Comment on above: Performed By: #### LIPID, BMP, LIVER ### # [facility] [address] [place] [address] Dr. Yue Vega AST [Catalytic activity/Vol] 30 U/L Normal 15-37 [facility] Comment on above: Performed By: #### LIPID, BMP, LIVER ### # [facility] [address] [place] [address] Dr. Yue Vega BILI, CONJUGATED 0.2 mg/dL Normal 0.0-0.2 [facility] Comment on above: Performed By: #### LIPID, BMP, LIVER ### # [facility] [address] [place] [address] Dr. Yue Vega Bilirubin [Mass/Vol] 0.9 mg/dL Normal 0.2-1.0 [facility] Comment on above: Performed By: #### LIPID, BMP, LIVER ### # [facility] [address] [address] [address] Yue Vega Globulin (S) [Mass/Vol] 4.2 g/dL Normal [facility] Comment on above: Performed By: #### LIPID, BMP, LIVER ### # [facility] [address] [address] [address] Yue Vega Protein [Mass/Vol] 8.0 g/dL Normal 6.4-8.2 [facility] Comment on above: Performed By: #### LIPID, BMP, LIVER ### # [facility] [address] [address] [address] Yue Vega MICROALBUMIN, RAND URon 09-15 mALB 16.8 mg/L Normal <=30.0 [facility] Comment on above: Performed By: #### ERUR, UMICRO #### [facility] [address] [place] [address] Dr. Yue Vega PROF CHEM 8 (BAS METB)on Anion gap [Moles/Vol] 12.2 mmol/L Normal [facility] Comment on above: Performed By: #### TSH #### [facility] [address] [place] [address] Dr. Yue Vega Calcium [Mass/Vol] 9.4 mg/dL Normal 8.5-10.1 [facility] Comment on above: Performed By: #### TSH #### [facility] [address] [place] [address] Dr. Yue Vega Chloride [Moles/Vol] 99 mmol/L Normal 98-107 [facility] Comment on above: Performed By: #### TSH #### [facility] [address] [place] [address] Dr. Yue Vega CO2 [Moles/Vol] 32.1 mmol/L Critically high 21.0-32.0 [facility] Comment on above: Performed By: #### TSH #### [facility] [address] [place] [address] Dr. Yue Vega Creatinine [Mass/Vol] 1.19 mg/dL Normal 0.70-1.30 [facility] Comment on above: Performed By: #### TSH #### [facility] [address] [address] [address] Yue Vega EGFR-AF KAZAKH >60 Normal >=60 [facility] Comment on above: Performed By: #### TSH #### [facility] [address] [address] [address] Yue Vega EGFR-NON AF KAZAKH 58 mL/min/1.73m2 Critically low >=60 [facility] Comment on above: Performed By: #### TSH #### [facility] [address] [address] [address] Yue Vega Glucose [Mass/Vol] 158 mg/dL Critically high 74-106 [facility] Comment on above: Performed By: #### TSH #### [facility] [address] [address] [address] Yue Vega Potassium [Moles/Vol] 4.3 mmol/L Normal 3.5-5.1 [facility] Comment on above: Performed By: #### TSH #### [facility] [address] [address] [address] Yue Vega Sodium [Moles/Vol] 139 mmol/L Normal 136-145 [facility] Comment on above: Performed By: #### TSH #### [facility] [address] [address] [address] Yue Vega Urea nitrogen [Mass/Vol] 24.0 mg/dL Critically high 7.0-18.0 [facility] Comment on above: Performed By: #### TSH #### [facility] [address] [address] [address] Yue Vega Urea nitrogen/Creatin ine [Mass ratio] 20.2 mg/mg Normal [facility] Comment on above: Performed By: #### TSH #### [facility] [address] [address] [address] Yue Vega XR wrist LT min 3V*on 2021 XR wrist LT min 3V* [facility] [employer] Other XR wrist LT min 3V* [facility] [employer] Other XR wrist LT min 3V* [facility] [employer] Other XR wrist LT min 3V* EILEEN Mendez [address] [employer] Other XR wrist LT min 3V* XRay Report [employer] Other XR wrist LT min 3V* Signed [employer] Other XR wrist LT min 3V* Patient: Edwin Orourke MR#: [id number] [employer] Other XR wrist LT min 3V* [id number] [employer] Other XR wrist LT min 3V* : 1935 Acct:[id number] [employer] Other XR wrist LT min 3V* Age/Sex: 87 / M ADM Date: 09/05/22 [employer] Other XR wrist LT min 3V* Loc: XDUCLY Room: Type: [facility] [employer] Other XR wrist LT min 3V* Attending Dr: Sanaz Campo [facility] [employer] Other XR wrist LT min 3V* Copies to: SANAZ CAMPO [facility] [employer] Other XR wrist LT min 3V* Ordering Provider: SANAZ CAMPO [facility] [employer] Other XR wrist LT min 3V* Date of Service: 09/05/22 [employer] Other XR wrist LT min 3V* XR/XR wrist LT min 3V*: Injury of left wrist, initial encounter [employer] Other XR wrist LT min 3V* LEFT WRIST - 4 views [employer] Other XR wrist LT min 3V* CLINICAL HISTORY: Fall this morning. Now with left wrist pain. [employer] Other XR wrist LT min 3V* COMPARISON: None [employer] Other XR wrist LT min 3V* FINDINGS: [employer] Other XR wrist LT min 3V* No focal soft tissue abnormality. Vascular calcifications. No acute bony process is seen. 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 [employer] Other XR wrist LT min 3V* XR/XR wrist LT min 3V* [employer] Other XR wrist LT min 3V* IMPRESSION: [employer] Other XR wrist LT min 3V* NO ACUTE BONY PROCESS. [employer] [facility] [employer] Other XR wrist LT min 3V* Impression dictated by: Albert Rene Jr., D.O.09/05/2022 5:57 PM [employer] Other XR wrist LT min 3V* Dictation Location: [place] [address] [employer] Other XR wrist LT min 3V* Transcribed By: MEGAN 09/05/22 [facility] [employer] Other XR wrist LT min 3V* Dictated By: Albert Rene Jr, DO 09/05/22 [facility] [employer] Other XR wrist LT min 3V* Signed By: [employer] Other XR wrist LT min 3V* 09/05/22 [facility] [employer] Other GLYCOHEMOGLOBIN A1Con 2021 ADA RECOMMENDATION SEE BELOW Normal [facility] Comment on above: Result Comment: ADA RECOMMENDED LIMIT 4. 0 - 6.0 ADA THERAPEUTIC TARGET < 7.0 ACTION SUGGESTED > 7.0 Performed By: #### A 1C #### [facility] [address] [address] [address] Yue Vega Glucose [Mass/Vol] 154 mg/dL Normal [facility] Comment on above: Performed By: #### A1C #### [facility] [address] [place], [place] [address] Dr. Yue Vega HbA1c (Bld) [Mass fraction] 7.0 % Critically high 4.5-6.2 [facility] Comment on above: Performed By: #### A1C #### [facility] [id number] Yue Vega Cardiovascular Lab Reporton 05-30-2018 Cardiovascular Lab Report [facility] [id number] Physician: Devendra Hood M.D.Medicine Service Date: 05/29/2018Division of Birthdate: 1935Cardiology Room #: 3CD [id number] [facility] [place], [place] [address]Shncw Fax Cardiovascular Laboratory ReportINDICATION: Edwin Orourke is an 83-year-old man with history ofhypertension, hyperlipidemia, and diabetes. He recently [facility] with typical unstable angina. He [...] signed informed consent. 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 Tiago's testwas favorable. Access in the left radial artery was obtained usingultrasound guidance and micropuncture technique. A 6-St Lucian x 11 cmHydrophilic sheath was left. Verapamil was given through the sheath andheparin was administered intravenously. Bilateral selective coronaryangiography was then performed using 6-St Lucian JL4 for engagement of theleft coronary artery and a 6-[place] Lucian JR4 followed by a 6-St Lucian ALIREZA catheterfor engagement of the right coronary artery. Catheters were removed.Therapeutic ACT confirmed during the procedure and additional heparin givenas needed. A 6-St Lucian XB 3.5 guiding catheter was advanced and [...] 11 atmospheres and post dilated using [place] 2.5 x 8 mm noncompliant balloon inflated [...] 11atmospheres and post dilated using [employer] [place] 2.5 x 15 mm noncompliantballoon inflated at 18 atmospheres throughout the length of the stent.Angiography was performed. Intracoronary nitroglycerin was administered.It was decided to deploy an additional stent distal to the previouslydeployed stent. This was a Synergy 2.25 x 12 mm stent, deployed at 11atmospheres and post dilated using [employer] [place] 2.5 x 15 mm noncompliantballoon inflated at [...] 05/29/2018/01:20 P/Devendra Flores M.D.Date Trans: 05/30/2018 11:47 A/johnathonoDN_[id number]: Darrin Velasquez D.O. [address] [facility] [address] [facility] [address] Ramon Martines M.D. [address] [facility] [address] [facility] POC GLUCOSE LABon 05-30-2018 Glucose mass conc 121 mg/dL High 70-[address] [facility] Comment on above: Performed By: #### [id number] ####[facility] [place] [address], [facility] POC GLUCOSE LABon 05-29-2018 Glucose mass conc 126 mg/dL High 70-[address] [facility] Comment on above: Performed By: #### [id number] ####[facility] [place] [address], [facility] Glucose mass conc 127 mg/dL High 70-[address] [facility] Comment on above: Performed By: #### [id number] ####[address] Vital Signs Date Time Vital Sign Value Performing Clinician Facility 10-25-2024 12:00-0500 Body height 177.8 cm Ramon Martines MD Work Phone: [facility] 10-25-2024 12:00-0500 Body temperature 97.5 [degF] Ramon Martines MD Work Phone: [facility] 10-25-2024 12:00-0500 Diastolic blood pressure 52 mm[Hg] Ramon Martines MD Work Phone: [facility] 10-25-2024 12:00-0500 Heart rate 75 /min Ramon Martines MD Work Phone: [facility] 10-25-2024 12:00-0500 Respiratory rate 20 /min Ramon Martines MD Work Phone: [facility] 10-25-2024 12:00-0500 SaO2% (BldA) [Mass fraction] 99 % Ramon Martines MD Work Phone: [facility] 10-25-2024 12:00-0500 Systolic blood pressure 118 mm[Hg] Ramon Martines MD Work Phone: [facility] 08-13-2024 11:04-0400 Body height 177.8 cm Ramon Martines MD Work Phone: [facility] 08-13-2024 11:04-0400 Body temperature 97.11 [degF] Ramon Martines MD Work Phone: [facility] 08-13-2024 11:04-0400 Diastolic blood pressure 52 mm[Hg] Ramon Martines MD Work Phone: [facility] 08-13-2024 11:04-0400 Heart rate 76 /min Ramon Martines MD Work Phone: [facility] 08-13-2024 11:04-0400 Respiratory rate 20 /min Ramon Martines MD Work Phone: [facility] 08-13-2024 11:04-0400 SaO2% (BldA) [Mass fraction] 97 % Ramon Martines MD Work Phone: [facility] 08-13-2024 11:04-0400 Systolic blood pressure 130 mm[Hg] Ramon Martines MD Work Phone: [facility] 06-04-2024 13:35-0400 Body height 177.8 cm Ramon Martines MD Work Phone: [facility] 06-04-2024 13:35-0400 Body temperature 97.81 [degF] Ramon Martines MD Work Phone: [facility] 06-04-2024 13:35-0400 Diastolic blood pressure 52 mm[Hg] Ramon Martiens MD Work Phone: [facility] 06-04-2024 13:35-0400 Heart rate 76 /min Ramon Martines MD Work Phone: [facility] 06-04-2024 13:35-0400 Respiratory rate 20 /min Ramon Martines MD Work Phone: [facility] 06-04-2024 13:35-0400 SaO2% (BldA) [Mass fraction] 98 % Ramon Martines MD Work Phone: [facility] 06-04-2024 13:35-0400 Systolic blood pressure 122 mm[Hg] Ramon Martines MD Work Phone: [facility] 05-31-2024 10:44-0400 Blood Pressure Location Deven BUTLER [facility] 05-31-2024 10:44-0400 Body temperature 98.6 [degF] Deven BUTLER [facility] 05-31-2024 10:44-0400 Diastolic blood pressure 71 mm[Hg] Deven BUTLER [facility] 05-31-2024 10:44-0400 Heart rate 62 /min Deven BUTLER [facility] 05-31-2024 10:44-0400 Respiratory rate 16 /min Deven BUTLER [facility] 05-31-2024 10:44-0400 Systolic blood pressure 130 mm[Hg] Deven BUTLER [facility] 12-01-2023 09:23-0500 Blood Pressure Location Deven BUTLER [facility] 12-01-2023 09:23-0500 Diastolic blood pressure 63 mm[Hg] Deven BUTLER [facility] 12-01-2023 09:23-0500 Heart rate 60 /min Deven BUTLER [facility] 12-01-2023 09:23-0500 Respiratory rate 16 /min Deven BUTLER [facility] 12-01-2023 09:23-0500 Systolic blood pressure 111 mm[Hg] Deven BUTLER [facility] 09-05-2022 17:40-0500 Body height 180.34 cm Sanaz Campo Other [employer] Other 09-05-2022 17:40-0500 Body mass index (BMI) [Ratio] 27.89 kg/m2 Sanaz Campo Other [employer] Other 09-05-2022 17:40-0500 Body temperature 97.6 [degF] Sanaz Campo Other [employer] Other 09-05-2022 17:40-0500 Body weight 90.72 kg Sanaz Campo Other [employer] Other 09-05-2022 17:40-0500 Diastolic blood pressure 63 mm[Hg] Sanaz Campo Other [employer] Other 09-05-2022 17:40-0500 Respiratory rate 16 /min Sanaz Campo Other [employer] Other 09-05-2022 17:40-0500 SaO2% (BldA) [Mass fraction] 97 % Sanaz Campo Other [employer] Other 09-05-2022 17:40-0500 Systolic blood pressure 153 mm[Hg] Sanaz Campo Other [employer] Other Encounters Encounter Date Encounter Type Care Provider Facility Start: 11-09-2024 End: 11-11-2024 Refill Ramon Martines MD Work Phone: [facility] Comment on above: Generalized anxiety disorder (CMS/HCC) Start: 11-08-2024 ambulatory LUKAS Wardi ty:[facility] [place] Start: 10-25-2024 End: 10-25-2024 Bamboo flowsheet Ramon Martines MD Work Phone: [facility] Start: 10-25-2024 End: 10-25-2024 Bamboo flowsheet Ramon Martines MD Work Phone: [facility] Start: 10-25-2024 End: 10-25-2024 Office outpatient visit 25 minutes Ramon Martines MD Work Phone: [facility] Comment on above: Non-healing ulcer of buttock, limited to breakdown of skin ([facility]/HCC) (Primary Dx); Type 2 diabetes mellitus with hyperglycemia, without long-term current use of insulin ([facility]); Essential hypertension, benign ([facility]/HCC); Lumbar spondylosis; Chronic diastolic heart failure ([facility]/HCC); Paroxysmal A-fib ([facility]); Stage 3a chronic kidney disease (HCC) ([facility]); Type 2 diabetes mellitus with diabetic chronic kidney disease ([facility]) Start: 10-25-2024 End: 10-25-2024 ambulatory RAMON MARTINES Not Available Start: 10-15-2024 End: 10-15-2024 ambulatory Ranjeet Clarke Facility:[facility] Start: 10-15-2024 End: 10-15-2024 Departed Referred Ranjeet Clarke DO [facility] Start: 10-08-2024 End: 10-08-2024 ambulatory LUKAS SAPP Facility:[facility] Start: 10-08-2024 End: 10-08-2024 Patient encounter procedure LUKAS SAPP [facility] Start: 09-10-2024 End: 09-10-2024 ambulatory [facility] X Or[facility] Start: 09-10-2024 End: 09-10-2024 Patient encounter procedure Yi X Orzech [facility] Start: 09-02-2024 End: 09-02-2024 ambulatory Soy Turpin MD Facility: [facility] Start: 08-16-2024 ambulatory Deven Dan ty: [place] Start: 08-13-2024 End: 08-13-2024 ambulatory Yi X Orzech [facility] Start: 08-13-2024 End: 08-13-2024 Bamboo flowsheet Ramon [...] Dx); Stage 3a chronic kidney disease (HCC) ([facility]/HCC); Type 2 diabetes mellitus with diabetic chronic kidney disease ([facility]/HCC) Start: 08-13-2024 End: 08-13-2024 ambulatory RAMON MARTINES Not Available Start: 07-26-2024 ambulatory Deven BUTLER Facili ty:[facility] Start: 07-19-2024 End: 07-19-2024 ambulatory Deven BUTLER Facility:[facility] Start: 07-19-2024 End: 07-19-2024 Patient encounter procedure Deven BUTLER [facility] Start: 06-21-2024 End: 06-21-2024 ambulatory Deven BUTLER Facility:[facility] Start: 06-21-2024 End: 06-21-2024 Patient encounter procedure Deven BUTLER [facility] Start: 06-14-2024 End: 06-17-2024 Clinisync Result Encounter [...] Start: 05-31-2024 End: 05-31-2024 ambulatory Deven BUTLER [facility] Start: 05-31-2024 End: 05-31-2024 Lab Drop off Deven BUTLER [facility] Start: 05-31-2024 End: 05-31-2024 ambulatory Deven BUTLER Facility:[facility] Start: 05-31-2024 End: 05-31-2024 Patient encounter procedure Deven BUTLER [facility] Start: 05-28-2024 End: 05-28-2024 ambulatory [facility] Start: 04-02-2024 End: 04-02-2024 ambulatory [facility] Start: 01-30-2024 End: 01-30-2024 ambulatory Deven BUTLER Facility:[facility] Start: 01-30-2024 End: 01-30-2024 Patient encounter procedure Deven BUTLER [facility] Start: 12-28-2023 End: 12-28-2023 ambulatory [facility] Start: 12-26-2023 End: 12-26-2023 ambulatory [facility] Start: 12-13-2023 End: 12-13-2023 ambulatory RAMON MARTINES Not Available Start: 12-01-2023 End: 12-01-2023 ambulatory Deven BUTLER Facility:[facility] Start: 12-01-2023 End: 12-01-2023 Patient encounter procedure Deven BUTLER [facility] Start: 11-21-2023 End: 11-21-2023 ambulatory [facility] Start: 11-06-2023 End: 11-06-2023 ambulatory Deven BUTLER Facility:[facility] Start: 10-11-2023 End: 10-11-2023 ambulatory ЕЛЕНА [facility] Start: 10-02-2023 ambulatory [facility] Start: 10-02-2023 End: 10-02-2023 ambulatory [facility] Start: 08-22-2023 End: 08-22-2023 ambulatory [facility] Start: 02-16-2023 End: 02-17-[address] DOCTOR NAGEL Facility: Start: 01-06-2023 End: 01-06-2023 ambulatory MD Ramon Martines Work Phone: [facility] Work Phone: Start: 01-06-2023 End: 01-06-2023 Patient encounter procedure MD Ramon Martines Work Phone: [facility] [place] Work Phone: Start: 12-26-2022 End: 12-26-2022 ambulatory GONZÁLEZ HADDAD . Facility:[facility] Start: 12-21-2022 End: 12-22-2022 ambulatory SUZI MURRAY Facility:[facility] Start: 12-06-2022 End: 12-31-[address] RAMON MARTINES Facility:[facility] Start: 09-26-2022 End: 09-27-[address] RAMON MARTINES Facility:[facility] Start: 09-05-2022 End: 09-05-2022 Patient encounter procedure RATING OFFICER-C Sanaz Campo Work Phone: [facility] Start: 09-05-2022 End: 09-05-2022 ambulatory RATING OFFICER-C Sanaz Campo Work Phone: [facility] Work Phone: Start: 09-05-2022 Office outpatient [...] Start: 09-05-2022 Plain X-ray of left wrist RATING OFFICER-C Sanaz Campo Work Phone: Appendectomy Deven BUTLER Arthroplasty of knee Deven BUTLER Extraction of cataract Mayra BUTLER Implantation of radioactive seed into prostate Deven BUTLER Placement of stent i n cardiac conduit Deven BUTLER Plan of Treatment Date Care Activity Detail Author Start: 08-13-2025 Medicare Annual Wellness (AWV) Medicare Annual Wellness (AWV) [facility] Start: 07-17-2025 Glaucoma screening Diabetes: R etinopathy Screening [facility] Start: 02-14-2025 End: 02-14-2025 Patient encounter procedure 02/14/2025 11:00 AM EDT Office Visit [facility] [address] [place] [id number] Ramon Martines MD [address] [place] [phone] [facility] Start: 12-21-2024 Urine screening for protein Diabetes: Urine Protein Screening [facility] Start: 12-05-2024 Hemoglobin A1c measurement Diabetes: Hemoglobin A1C [facility] Start: 10-25-2024 End: 10-25-2024 Patient encounter procedure 10/25/2024 11:45 AM EST Office Visit [facility] [address] [place] [address] Ramon Martines MD [address] [place] [phone] Arrived [facility] Comment on above: Arrived Start: 10-15-2024 Bacteria identified in Urine by Culture Urine Culture [facility] Start: 10-15-2024 Urine culture [facility] Start: 08-13-2024 End: 08-13-2024 Patient encounter procedure [facility] Comment on above: Arrived Start: 07-31-2024 End: 07-31-2024 Patient encounter procedure 07/31/2024 1:00 PM EDT Office Visit [facility] [address] [place] [phone] Cher ChurchillJOHANA-COMPLIANCE ASSISTANT [address] [place] [address] [facility] Start: 06-23-2024 Hemoglobin A1c measurement Diabetes: Hemoglobin A1C [facility] Start: 06-16-2024 Influenza vaccination Influenza Vacc ine (#1) [facility] Start: 06-04-2024 End: 06-04-2025 Basic metabolic 1998 panel - Serum or Plasma Basic metabolic panel Lab Routine Essential hypertension, benign ([facility]/HCC) Expected: 06/04/2024 (Approximate), Expires: 06/04/2025 [facility] Comment on above: Expected: 06/04/2024 (Approximate), Expires: 06/04/2025 Start: 06-04-2024 End: 06-04-2025 Hemoglobin A1c/Hemoglobin.total in Blood Hemoglobin A1c Lab Routine Type 2 diabetes mellitus with hyperglycemia, without long-term current use of insulin ([facility]) Expected: 06/04/2024 (Approximate), Expires: 06/04/2025 [facility] Work Phone: Comment on above: Expected: 06/04/2024 (Approximate), Expires: 06/04/2025 Start: 06-04-2024 End: 06-04-2024 Patient encounter procedure 06/04/2024 1:30 PM EDT [facility] [address] [place] [phone] Ramon Martines MD [address] [place] [phone] Arrived [facility] Comment on above: Arrived Start: 03-23-2024 Hemoglobin A1c measurement Diabetes: Hemoglobin A1C [facility] Start: 1947 Glaucoma screening Diabetes: R etinopathy Screening [facility] Start: 1943 Pneumococcal Vaccine : 65+ Years (1 of 2 - PCV) Pneumococcal Vaccine: 65+ Years (1 of 2 - PCV) [facility] Start: 1937 Medicare Annual Wellness (AWV) Medicare Annual Wellness (AWV) [facility] Bacteria identified in Urine by Culture URINE CULTURE, ROUTINE Lab Routine 06/14/2024 12:55 PM EDT [facility] Payers Date Payer Category Payer Self-pay 2021 Private Health Insurance [employer] [id number] 2021 Unknown 2001 Medicare [id number] 1959 Medicare [id number] 1959 Unknown [id number] 1937 Unknown [id number] 2..840.1.186680.3.579.2. 593 1937 Unknown [id number] 2.16.840.1.729602.3.579.2. 593 1937 Unknown [id number] 2.16.840.1.173277.3.579.2. 593 1937 Unknown [id number] 2.16.840.1.572072.3.579.2. 593 1937 Unknown [id number] 2.16.840.1.223438.3.579.2. 593 1937 Unknown [id number] 2.16.840.1.994327.3.579.2. 593 1937 Unknown [id number] 2.16.840.1.011576.3.579.2. 727 1937 Unknown [id number] 2.16.840.1.195799.3.579.2. 727 1937 Unknown [id number] 2.16.840.1.089993.3.579.2. 727 1937 Unknown [id number] 2.16840.1.760530.3.579.2. 727 1937 Unknown [id number] 2.16840.1.820250.3.579.2. 727 1937 Unknown [id number] 2.16840.1.717716.3.579.2. 727 1937 Unknown [id number] 2.16840.1.071111.3.579.2. 196 1937 Unknown [id number] 2.16840.1.495949.3.579.2. 1259 1937 Unknown [id number] 2.16840.1.655115.3.579.2. 1259 1937 Unknown [id number] 2.16.840.1.166082.3.579.2. 1259 1937 Unknown [id number] 2.16.840.1.751104.3.579.2. 1259 1937 Unknown [id number] 2.16.840.1.562565.3.579.2. 727 1937 Unknown [id number] 2.16.840.1.431739.3.579.2. 727 1937 Unknown [id number] 2.16.840.1.716130.3.579.2. 727 1937 Unknown [id number] 2.16.840.1.567456.3.579.2. 727 1937 Unknown [id number] 2.16.840.1.245729.3.579.2. 727 1937 Unknown [id number] 2.16.840.1.629407.3.579.2. 727 1937 Unknown [id number] 2.16.840.1.459544.3.579.2. 727 1937 Unknown [id number] 2.16.840.1.727733.3.579.2. 727 Medicare [id number] Unknown [id number] 2.16.840.1.450751.3.579.2. 531 Social History Date Type Detail Facility [facility] Work Phone: Start: 1935 Sex Assigned At Male F [facility] Start: 06-04-2024 End: 08-13-2024 Sex Assigned At [facility] Start: 03-02-2020 End: 07-14-2023 Tobacco smoking status Never smoked tobacco (finding) [facility] Start: 06-04-2024 End: 10-25-2024 Alcoholic beverage intake Lifetime non-drinker (finding) [facility] Start: 06-04-2024 End: 08-13-2024 History of Social function [facility] Start: 1935 Sex assigned at Not on file [facility] Work Phone: Start: 10-16-2024 Sex Patient sex un known (finding) [facility] Medical Equipment Procedure Code Equipment Code Equipment Origin al Text Equipment Identifier Dates 1 each by In Vit ro route Daily [id number] Start: 12-13-2023 Functional Status Date Assessment Result Facility 05-31-2024 Functional Status N/A [facility] 01-30-2024 Functional Status N/A [facility] 12-01-2023 Functional Status N/A [facility] Clinical Notes 09-05-2022 to 10-25-2024 Ramon Martines MD - 10/25/2024 2:24 PM Raza Martines MD - 10/25/2024 2:24 PM Raza Martines MD - 10/25/2024 2:24 PM Raza Martines MD - 10/25/2024 2:24 PM EST Note Date & Type Note Facility 10-25-2024 History of Present illness Narrative Associated Problem(s): Stage 3a chronic kidney disease (HCC) ([facility]) Monitor labs Associated Problem(s): Type 2 diabetes mellitus with hyperglycemia, without long-term current use of insulin ([facility]) Not checking BS and due for A1C. Associated Problem(s): Paroxysmal A-fib ([facility]) Remains in NSR and monitor. Associated Problem(s): Non-healing ulcer of buttock, limited to breakdown of skin ([facility]) Ulcer for months and not healing. Add wound care from Home Health. Associated Problem(s): Lumbar spondylosis Pain much improved and monitor. Start PT for weakness. Associated Problem(s): Essential hypertension, benign ([facility]/HCC) BP controlled and monitor PRN. Associated Problem(s): Chronic diastolic heart failure ([facility]) No edema and continue medication. Elevate legs [...] Addressed This Visit Chronic diastolic heart failure ([facility]/HCC) No edema and continue medication. Elevate legs PRN. Essential hypertension, benign ([facility]/HCC) BP controlled and monitor PRN. Lumbar spondylosis Pain much improved and monitor. Start PT for weakness. Paroxysmal A-fib ([facility]) Remains in NSR and monitor. Type 2 diabetes mellitus with hyperglycemia, without long-term current use of insulin ([facility]) Not checking BS and due for A1C. Stage 3a chronic kidney disease (HCC) (CMS/HCC) Monitor labs Non-healing ulcer of buttock, limited to breakdown of skin ([facility]) - Primary Ulcer for months and not healing. Add wound care from Home Health. documented in this encounter [facility] 08-13-2024 History of Present illness Narrative Associated Problem(s): Stage 3a chronic kidney disease (HCC) ([facility]) Renal function stable. Associated Problem(s): Medicare annual [...] Visit Stage 3a chronic kidney disease (HCC) ([facility]) Renal function stable. Medicare annual wellness visit, subsequent - Primary Reviewed labs. Discussed proper diet and regular aerobic exercise. Need aerobic exercise 5-6 days a week for 30 minutes at a time. Smaller portions and limit total calories. Tetanus every 10 years. Advised not to smoke. Discussed daily Aspirin therapy. documented in this encounter [facility] 06-04-2024 History of Present illness Narrative Associated Problem(s): Type 2 diabetes mellitus with hyperglycemia, without long-term current use of insulin ([facility]) Not checking BS and due for A1C. Associated Problem(s): Major depressive disorder, recurrent episode, moderate (HCC) ([facility]) Symptoms improved with celexa and continue. Associated [...] 8.6 MG capsule documented in this encounter [facility] 05-31-2024 Hospital Discharge instructions Patient Education 05/31/2024 [...] bag. Secure the leg bag according to inspection machine tender's instructions. This may be above or below [...] on each side. Do this in a vfcau-qk-jzyk direction. ?If you are male: ?Use one [...] Clean the drainage bag according to the inspection machine tender's instructions or as told by your health [...] and water are not available, use hand estimator printing. Always make sure there are no twists, [...] provider. Document Revised: 06/02/2022 Document Reviewed: 06/02/2022 [employer] Patient Education 2022 [email or web address]. Follow Up Care 01/30/2024 11:29:46 With:MÓNICA STEPHENSON, Deven Zimmerman, URL Address: [address] [place] [address]- When: Unknown [facility] 05-31-2024 Note Patient Education Urology Indwelling Urinary [...] ? Secure the leg bag according to inspection machine tender's instructions. This may be above or below [...] on each side. Do this in a xpglu-cg-iayc direction. ? If you are male: ? [...] Clean the drainage bag according to the inspection machine tender's instructions or as told by your health [...] to prevent ba (more content not included)... [facility] 04-02-2024 Note ME Electrophysiology Note Reason for visit: bradycardia 04/02/24 [...] work on him once /wk. HPI: Edwin Oruorke is a 89 y.o. with PMH of [...] discontinued due to having ER visit with [facility] for complaints of dizziness and [...] ECG 05/04/2018: Atrial fibrillation, possible old septal SD. ECG 05/28/2018 showed sinus rhythm with 1st degree AV block and PAC. Possible anteroseptal SD. ECG today 03/21/2019: sinus rhythm with 1st [...] morning. oxyCODONE (Roxicod (more content not included)... [facility] 01-30-2024 Evaluation + Plan note Extrac [...] Date:05/31/2024 11:00:00 AM Scheduled Provider:Deven BUTLER MD Location:[facility] Appointment Type:URO Office Visit [facility]04-16-2024 Hospital Discharge instructions Patient Education [...] Up Care 01/04/2024 13:38:25 With:Deven MÓNICA Address: [address] [place] [address] [place] [address] Business (1) When:05/31/2024 11:24:06 [facility]04-16-2024 Note [id number] NoteCustom Cystoscopy ? Voiding after [...] if you have a fever over 100 degrees.[facility] 12-26-2023 NoteUT Electrophysiology Note Reason for [...] discontinued due to having ER visit with [facility] for complaints of dizziness and [...] ECG 05/04/2018: Atrial fibrillation, possible old septal SD. ECG 05/28/2018 showed sinus rhythm with 1st degree AV block and PAC. Possible anteroseptal SD. ECG today 03/21/2019: sinus rhythm with 1st [...] of Systems Constitutional: Pos (more content not included)...[facility]02-16-2024 Hospital Discharge instructions Patient Education 12/01/2023 [...] nerve stimulation). ?For women, using a medical technologist hematology to prevent urine leaks. This is a [...] right after experiencing incontinence. General instructions Take jyhy-xzy-fyjhaye and prescription medicines only as told by [...] important. Where to find more information [employer] and [employer]estive and Kidney Diseases: www.niddk.nih.gov [employer]: www.urologyhealth.org Contact a health care [...] provider. Document Revised: 05/07/2021 Document Reviewed: 05/07/2021 NewCom[employer] Patient Education 2022 [email or web address]. Follow Up Care 08/25/2023 10:52:16 With:MÓNICA STEPHENSON, Deven Zimmerman, URL Address: [address] [place] [id number]- When: Unknown [facility]ali 12-27-2023 NoteStable s/p [facility] NoteStable s/p Dual chamber [facility]12-27-2023 NotePt presents for 1 week wound check s/p recent [employer] dual PPM implant for SSS/ bradycardia Incision site well approximated, healing well without s/s of infectionUnClinton [facility]12-27-2023 NoteUTP CARDIOLOGY PROGRESS NOTE HPI: [...] PROCEDURE: 10/02/23 PERFORMING PHYSICIAN: Dr. Mike Hilario EDUCATION ADMINISTRATOR: Dr Lana Powell CONSENT: Patient LOCATION: EP Lab PROCEDURE PERFORMED: 1. Implantation of pacemaker ([employer]) 2. Ultrasound guided venous access INDICATIONS: 1. Sinus node dysfunction. 2. Bradycardia No echocardiogram results found for the past 12 months Assessment/Plan: Cardiac pacemaker in situ Pt presents for 1 week wound check s/p recent [employer] dual PPM implant for SSS/ bradycardia Incision site well approximated, healing well without s/s of infection Sinus node dysfunction (CMS/HCC) Stable s/p Dual chamber PPM Sinus bradycardia Stable s/p Dual chamber PPM RTC 1 month with device repUnClinton [facility]12-18-2023 Note DUAL CHAMBER PACEMAKER IMPLANT PROCEDURE NOTE DATE OF PROCEDURE: 10/02/23 PERFORMING PHYSICIAN: Dr. Mike Hilario EDUCATION ADMINISTRATOR: Dr Lana Powell CONSENT: Patient LOCATION: EP Lab PROCEDURE PERFORMED: 1. Implantation of pacemaker ([employer]) 2. Ultrasound guided venous access INDICATIONS: [...] discontinued due to having ER visit with [facility] for complaints of dizziness and [...] using modified seldinger technique using a 5 [address] [place]ian micro-puncture needle on two occasions and 0.35 [...] for the device above the muscle. 6 St Lucian Safesheaths were placed over the wire. An active fixation [employer] pacing lead was then delivered through the 6Fsheath to the right ventricle. After confirmation of lead position on orthogonal views (GRAVES and AMHARIC) to confirm septal position, the screw was activated, and the lead was placed in the right ventricular mid cavity towards the septum. After confirmation of good sensing parameters, injury pattern and pacing thresholds, 10V pacing was done and no diaphragmatic stimulation was noted. It was then secured in the pocket using three 1-0 Silk sutures. Then an active fixation [employer] lead was delivered through the 6Fsheath to the right atrial appendage. After confirmation of lead position on orthogonal views (GRAVES and AMHARIC), the screw was activated. Good sensing parameters, [...] 5. No driving for (more content not included)...[facility]12-18-2023 NotePatient: Edwin Orourke Procedure Information Date/Time: 10/02/23 1230 Procedure: Pacemaker DC new Location: [facility] 1 EP / [facility] (Cath) Providers: Mike Hilario MD Clinical information reviewed: Allergies Meds Physical Exam Airway Mallampati: II TM distance: >3 FB Neck ROM: full Cardiovascular Dental Pulmonary Abdominal Anesthesia Plan ASA 2 CSE Anesthetic plan and risks discussed with patient. Use of blood products discussed with patient who. Additional Equipment [facility]sUnClinton [facility]11-07-2023 Note ME Electrophysiology Note Reason for visit: bradycardia Date of Telehealth Visit: 08/22/23 The patient was notified that using 3rd alliance party telecommunication application (e.g., Bionym) is not HIPPA compliant and may carry some privacy risks. Yes The visit was conducted dnnc-hq-evyp with the use of audio and video [...] discontinued due to having ER visit with [facility] for complaints of dizziness and [...] ECG 05/04/2018: Atrial fibrillation, possible old septal SD. ECG 05/28/2018 showed sinus rhythm with 1st degree AV block and PAC. Possible anteroseptal SD. ECG today 03/21/2019: sinus rhythm with 1st [...] ROS: Cardio Basic Cardiovascular (more content not included)...[facility] 09-05-2022 Evaluation note* Encounter Date Diagnosis [...] care office for follow up on Monday [employer] Other Evaluation + Plan note No data available for this section [facility] evaluation + Plan note Future Appointments Appointment Date:06/21/2024 11:00:00 AM Scheduled Provider: Location:[facility] Appointment Type:URO Nurse Visit [facility] evaluation + Plan note Future Appointments Appointment Date:06/21/2024 11:00:00 AM Scheduled Provider: Location:[facility] Appointment Type:URO Nurse Visit Diagnostic Tests Pending * Urine Culture 05/31/24 [facility] evaluation + Plan note Future Appointments Appointment Date:07/19/2024 11:00:00 AM Scheduled Provider: Location:[facility] Appointment Type:URO Nurse Visit [facility] evaluation + Plan note Future Appointments Appointment Date:08/16/2024 11:00:00 AM Scheduled Provider: Location:[facility] Appointment Type:URO Nurse Visit [facility] evaluation + Plan note Future Appointments Appointment Date:09/10/2024 11:00:00 AM Scheduled Provider: Location:[facility] Appointment Type:URO Nurse Visit [facility] evaluation + Plan note Future Appointments Appointment Date:10/08/2024 11:40:00 AM Scheduled Provider:LUKAS SAPP PA-C Location:[facility] Appointment Type:URO Office Visit [facility] evaluation + Plan note Future Appointments Appointment Date:11/08/2024 11:20:00 AM Scheduled Provider:LUKAS SAPP PA-C Location:[facility] Appointment Type:URO Office Visit [facility] evaluation noteNo assessment information available [facility] Work Phone: evaluation note* Diagnosis Type 2 diabetes mellitus with hyperglycemia, without long-term current use of insulin (CMS/HCC)- Primary Essential hypertension, benign (CMS/HCC) Essential hypertension, benign Lumbar spondylosis Lumbosacral spondylosis without myelopathy Chronic diastolic heart failure (CMS/HCC) Chronic diastolic heart failure Paroxysmal A-fib ([facility]) Encounter for long-term (current) use of medications Encounter for long-term (current) use of other medications Dyslipidemia ([facility]) Other and unspecified hyperlipidemia 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 ([facility]) Type 2 diabetes mellitus with hyperglycemia, without long-term current use of insulin ([facility])- Primary Essential hypertension, benign ([facility]) Essential hypertension, benign Encounter for long-term (current) use of medications Encounter for long-term (current) use of other medications Chronic constipation Unspecified constipation Lumbar spondylosis Lumbosacral spondylosis without myelopathy Generalized anxiety disorder ([facility]) Generalized anxiety disorder Chronic diastolic heart failure ([facility]) Chronic diastolic heart failure Type 2 diabetes mellitus with diabetic chronic kidney disease ([facility]) Chronic kidney disease, stage 2 (mild) Medicare annual wellness visit, subsequent- Primary Stage 3a chronic kidney disease (HCC) ([facility]) Type 2 diabetes mellitus with diabetic chronic kidney disease ([facility]) documented in this encounter [facility] HealthcareEvaluation note* Diagnosis Type 2 diabetes mellitus with hyperglycemia, without long-term current use of insulin ([facility])- Primary Essential hypertension, benign ([facility]) Essential hypertension, benign Encounter for long-term (current) use of medications Encounter for long-term (current) use of other medications Chronic constipation Unspecified constipation Lumbar spondylosis Lumbosacral spondylosis without myelopathy Generalized anxiety disorder ([facility]) Generalized anxiety disorder Chronic diastolic heart failure ([facility]) Chronic diastolic heart failure Type 2 diabetes mellitus with diabetic chronic kidney disease (HCC) [place] Chronic kidney disease, stage 2 (mild) documented in this encounter [facility] HealthcareEvaluation note* Diagnosis Type 2 diabetes mellitus with hyperglycemia, without long-term current use of insulin ([facility])- Primary Essential hypertension, benign ([facility]) Essential hypertension, benign Lumbar spondylosis Lumbosacral spondylosis without myelopathy Chronic diastolic heart failure ([facility]/HCC) Chronic diastolic heart failure Paroxysmal A-fib ([facility]) Encounter for long-term (current) use of medications Encounter for long-term (current) use of other medications Dyslipidemia ([facility]) Other and unspecified hyperlipidemia 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 ([facility]) Type 2 diabetes mellitus with hyperglycemia, without long-term current use of insulin ([facility] Primary Essential hypertension, benign ([facility]) Essential hypertension, benign Encounter for long-term (current) use of medications Encounter for long-term (current) use of other medications Chronic constipation Unspecified constipation Lumbar spondylosis Lumbosacral spondylosis without myelopathy Generalized anxiety disorder ([facility]) Generalized anxiety disorder Chronic diastolic heart failure ([facility]) Chronic diastolic heart failure Type 2 diabetes mellitus with diabetic chronic kidney disease ([facility]) Chronic kidney disease, stage 2 (mild) Medicare annual wellness visit, subsequent- Primary Stage 3a chronic kidney disease (HCC) ([facility]) Type 2 diabetes mellitus with diabetic chronic kidney disease ([facility]) Non-healing ulcer of buttock, limited to breakdown of skin ([facility])- Primary Type 2 diabetes mellitus with hyperglycemia, without long-term current use of insulin ([facility]) Essential hypertension, benign ([facility]) Essential hypertension, benign Lumbar spondylosis Lumbosacral spondylosis without myelopathy Chronic diastolic heart failure ([facility]) Chronic diastolic heart failure Paroxysmal A-fib ([facility]) Stage 3a chronic kidney disease (HCC) ([facility]) Type 2 diabetes mellitus with diabetic chronic kidney disease ([facility]) documented in this encounter [facility] HealthcareEvaluation note* Diagnosis Type 2 diabetes mellitus with hyperglycemia, without long-term current use of insulin ([facility])- Primary Essential hypertension, benign ([facility]) Essential hypertension, benign Lumbar spondylosis Lumbosacral spondylosis without myelopathy Chronic diastolic heart failure ([facility]) Chronic diastolic heart failure Paroxysmal A-fib ([facility]) Encounter for long-term (current) use of medications Encounter for long-term (current) use of other medications Dyslipidemia ([facility]) Other and unspecified hyperlipidemia 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 ([facility]) Type 2 diabetes mellitus with hyperglycemia, without long-term current use of insulin ([facility])- Primary Essential hypertension, benign ([facility]) Essential hypertension, benign Encounter for long-term (current) use of medications Encounter for long-term (current) use of other medications Chronic constipation Unspecified constipation Lumbar spondylosis Lumbosacral spondylosis without myelopathy Generalized anxiety disorder ([facility]) Generalized anxiety disorder Chronic diastolic heart failure ([facility]) Chronic diastolic heart failure Type 2 diabetes mellitus with diabetic chronic kidney disease ([facility]) Chronic kidney disease, stage 2 (mild) Medicare annual wellness visit, subsequent- Primary Stage 3a chronic kidney disease (HCC) ([facility]) Type 2 diabetes mellitus with diabetic chronic kidney disease ([facility]) Non-healing ulcer of buttock, limited to breakdown of skin ([facility])- Primary Type 2 diabetes mellitus with hyperglycemia, without long-term current use of insulin ([facility]) Essential hypertension, benign ([facility]) Essential hypertension, benign Lumbar spondylosis Lumbosacral spondylosis without myelopathy Chronic diastolic heart failure ([facility]) Chronic diastolic heart failure Paroxysmal A-fib ([facility]) Stage 3a chronic kidney disease (HCC) ([facility] Type 2 diabetes mellitus with diabetic chronic kidney disease ([facility]) Generalized anxiety disorder [place] Generalized anxiety disorder documented in this encounter [facility] Narrative - Reported* Type Description Date Medical History diabetes mallitus Medical History high blood pressure Medical History high cholesterol Surgical History b/l knee 1999 [employer] Other Hospital Discharge instructions No data available for this section [facility] Progress note No data available for this section [facility] Summary Purpose Family History Relationship Condition Age [...] AUTHOR 06/21/2018 [facility] DATE CREATED AUTHOR AUTHOR'S ORGANIZ ATION 02/23/2023 [facility] DATE CREATED AUTHOR AUTHOR'S ORGANIZ ATION 05/30/2024 [facility] DATE CREATED AUTHOR AUTHOR'S ORGANIZ ATION 06/03/2024 [facility] DATE CREATED AUTHOR AUTHOR'S ORGANIZ ATION 06/23/2024 [facility] DATE CREATED AUTHOR AUTHOR'S ORGANIZ ATION 09/07/2024 [facility] DATE CREATED AUTHOR AUTHOR'S ORGANIZ ATION 10/17/2024 [facility] DATE CREATED AUTHOR AUTHOR'S ORGANIZ ATION 10/30/2024 [facility] DATE CREATED AUTHOR AUTHOR'S ORGANIZ ATION 11/07/2024 [facility] Care Teams (unrecognized sec tion and content) Team Status: Inactive Member Role Status Dates ISAI Davis Attending Provider Active Team Status: Active Member Role Status Dates Ramon Martines MD Primary Care Provider Active Team Status: Inactive Member Role Status Dates Jose Eduardo Murray DO Attending Provider Active Ramon Martines MD Primary Care Provider Active Body Team Member Relationship Specialty Start Date End Date Ramon Martines MD [address] [place] [phone] PCP - General Family Medicine 12/13/23 Body Team Member Relationship Specialty Start Date End Date Ramon Martines MD [address] [place] [phone] PCP - General Family Medicine 12/13/23 Body Team Member Relationship Specialty Start Date End Date Ramon Martines MD [address] [place] [phone] PCP - General Family Medicine 12/13/23 Body Team Member Relationship Specialty Start Date End Date Ramon Martines MD [address] [place] [phone] PCP - General Family Medicine 12/13/23 Body Team Member Relationship Specialty Start Date End Date Ramon Martines MD [address] [place] [id number] PCP - General Family Medicine 12/13/23 Team Status: Inactive Member Role Status Dates Ranjeet Clarke DO Attending Provider Active S tart: October 15, 2024 End: October 15, 2024 Body Team Member Relationship Specialty Start Date End Date Ramon Martines MD [address] [place] [phone] PCP - General Family Medicine 12/13/23 Body Team Member Relationship Specialty Start Date End Date Ramon Martines MD [address] [place] [phone] PCP - General Family Medicine 12/13/23 Body Team Member Relationship Specialty Start Date End Date Ramon Martines MD [address] [place] [phone] PCP - General Family Medicine 12/13/23 Goals [...] Hospice f/up Reason Comments Follow-up Documentation for [facility] heat. Reason Comments Med Refill FOR RECORDS [...] BE BASED ON THE PRIMARY CLINICAL RECORDS. [facility] [employer] [facility]. provides no warranty or guarantee of the accuracy or completeness of information in this document.
[2024-11-17] MEDS: 0.9 % SODIUM CHLORIDE 1,000 ML 100 ML IV ×3 (02:19→23:09)
[2024-11-17 06:24] LABS: Basophils Absolute Auto 0.1 10^3/uL (0.0-0.1); Basophils Percent Auto 0.4 % (0.2-2.0); Eosinophils Absolute Auto 0.3 10^3/uL (0.0-0.7); Eosinophils Percent Auto 1.9 % (0.9-7.0); Hematocrit 29.6 % (42.0-54.0); Hemoglobin 9.5 g/dL (14.0-18.0); Immature Granulocytes Abs Auto 0.05 10^3/uL (0.00-0.03); Immature Granulocytes Pct Auto 0.3 % (0.0-0.5); Lymphocytes Absolute Auto 1.3 10^3/uL (1.2-3.8); Lymphocytes Percent Auto 9.3 % (20.5-60.0); Mean Corpuscular HGB Conc 32.1 g/dL (29.9-35.2); Mean Corpuscular Hemoglobin 27.1 pg (25.9-34.0); Mean Corpuscular Volume 84.6 fL (80.0-94.0); Mean Platelet Volume 9.1 fL (9.5-13.5); Monocytes Absolute Auto 1.2 10^3/uL (0.3-0.8); Neutrophils Absolute Auto 11.6 10^3/uL (1.4-6.5); Neutrophils Percent Auto 80.1 % (43.0-75.0); Platelet Count 314 10^3/uL (150-450); Red Cell Distribution Width 13.9 % (11.0-15.0); White Blood Count 14.5 10^3/uL (4.0-11.0)
[2024-11-17 06:47] LABS: Alanine Aminotransferase 14 U/L (16-63); Albumin Globulin Ratio 0.7; Albumin Level 2.8 g/dL (3.4-5.0); Alkaline Phosphatase 113 U/L (46-116); Anion Gap 12.7; Aspartate Amino Transferase 18 U/L (15-37); BUN Creatinine Ratio 17.4; Bilirubin Total 0.5 mg/dL (0.2-1.0); Calcium 8.6 mg/dL (8.5-10.1); Carbon Dioxide 29.2 mmol/L (21.0-32.0); Chloride 100 mmol/L (98-107); Estimated GFR (African America >60 (>=60 mL/min/1.73m^2); Estimated GFR (Non-African Ame 57 (>=60 mL/min/1.73m^2); Globulin 3.8 g/dL; Glucose 110 mg/dL (74-106); Magnesium 1.5 mg/dL (1.8-2.4); Potassium 3.9 mmol/L (3.5-5.1); Sodium 138 mmol/L (136-145); Total Protein 6.6 g/dL (6.4-8.2)
[2024-11-17] MEDS: LISINOPRIL 20 MG TABLET PO (11:41)
[2024-11-17] MEDS: NYSTATIN 15 GM POWDER 1 APPLIC TOPICAL ×2 (11:41→21:13)
[2024-11-17] MEDS: ENOXAPARIN SODIUM 40 MG/0.4 ML SYRINGE SUBQ (11:41)
[2024-11-17] MEDS: OXYBUTYNIN CHLORIDE 5 MG TAB XL 15 MG PO (11:41)
[2024-11-17] MEDS: METFORMIN HCL 500 MG TABLET PO (11:41)
[2024-11-17] MEDS: HYDROCHLOROTHIAZIDE 25 MG TABLET PO (11:42)
[2024-11-17] MEDS: LATANOPROST 0.005% 2.5 ML BOTTLE 1 DROP OP (11:42)
[2024-11-17] MEDS: DONEPEZIL HCL 10 MG TABLET PO (11:42)
[2024-11-17] MEDS: ASPIRIN 81 MG TABLET.DR PO (11:42)
[2024-11-17] MEDS: TAMSULOSIN HCL 0.4 MG CAPSULE 0.8 MG PO (11:42)
[2024-11-17] MEDS: ISOSORBIDE MONONITRATE 60 MG TAB.ER.24H PO (11:42)
[2024-11-17] MEDS: CITALOPRAM HYDROBROMIDE 20 MG TABLET 10 MG PO (11:44)
[2024-11-17] MEDS: CIPROFLOXACIN 400 MG/200 ML D5W PREMIX IV ×2 (11:44→23:09)
[2024-11-17] MEDS: ZINC GLUCONATE 50 MG TABLET PO (11:47)
--- NOTE | 2024-11-17 11:49 | PM.HP ---
HPI H&P: HPI History of Present Illness Chief complaint: UTI Sepsis Narrative: 89 y/o male to ER after a fall. Patient was standing by commode and helping him get cleaned up when legs became very weak. Not able to hold self up and lowered to floor. Called EMS for lift assist and squad found low BP around 50s systolic. Started IV fluids and to ER. Given about 500 mL by arrival and BP improved. History of indwelling Blank in place and UA showed UTI. WBC elevated at 17.8 and labs showed KARLA. Started antibiotics and admitted for treatment. Started cipro for UTI and history of pseudomonas in urine. Started IV fluids and labs and vitals improved with hydration. Continues to have severe weakness this am and reports strength declining over past few days. Opioid HPI Opioid Management Most Recent Pain and Opioid Data: Last Pain Scale 8 09/02/24 11:41 09/02/24 Last Pain Assessment 11/17/24 11:00 Last ORT Total Score 0 11/17/24 01:33 11/17/24 Last ORT Risk Category Low Risk 11/17/24 01:33 11/17/24 Review of Systems ROS Constitutional Reports: fatigue; Denies: fever or chills Cardiovascular Denies: chest pain, palpitations or edema Respiratory Denies: shortness of breath, cough or wheezing Gastrointestinal Denies: abdominal pain, nausea, vomiting or diarrhea Genitourinary Denies: painful urination [facility] Medical History (Updated 11/17/24 @ 11:56 by Ramon Ortiz MD) Lumbar radiculopathy ?M54.16 - Radiculopathy, lumbar region (ICD-10) Urinary tract infection ?N39.0 - Urinary tract infection, site not specified (ICD-10) Cellulitis ?L03.90 - Cellulitis, unspecified (ICD-10) Encounter for medication monitoring ?Z51.81 - Encounter for therapeutic drug level monitoring (ICD-10) Nausea and vomiting ?R11.2 - Nausea with vomiting, unspecified (ICD-10) Acute hyponatremia ?E87.1 - Hypo-osmolality and hyponatremia (ICD-10) Lumbar stenosis with neurogenic claudication ?M48.062 - Spinal stenosis, lumbar region with neurogenic claudication (ICD-10) Kidney stone on right side ?N20.0 - Calculus of kidney (ICD-10) Degenerative disc disease Skin cancer ?C44.90 - Unspecified malignant neoplasm of skin, unspecified (ICD-10) Prostate cancer ?C61 - Malignant neoplasm of prostate (ICD-10) Postsurgical cardiac pacemaker in situ ?Z95.0 - Presence of cardiac pacemaker (ICD-10) Surgical History History of cholecystectomy ?Z90.49 - Acquired absence of other specified parts of digestive tract (ICD-10) History of cataract surgery ?Z98.49 - Cataract extraction status, unspecified eye (ICD-10) History of bilateral knee replacement ?Z96.653 - Presence of artificial knee joint, bilateral (ICD-10) Family History Brother Family history of myocardial infarction Family history of hypertension Family history of diabetes mellitus Mother Family history of hypertension Family history of diabetes mellitus Sister Family history of diabetes mellitus Social History Within the past year, how often did you have a drink containing alcohol: never Score interpretation: A score less than 4 is consistent with normal alcohol consumption. Smoking status: Never smoker Non-prescribed substance use: denies use Previous occupational history: [employer] Known occupational exposures/hazards: No Highest level of school completed/degree received: high school graduate Are you now , , , , never or living with a partner: In a typical week, how many times do you talk on the telephone with family, friends, or neighbors: 3 or more times per week How often do you get together with friends or relatives: 3 or more times per week How often do you attend religious or mandaeism services: 4 or more times per year Do you belong to any clubs or organizations such as religious groups unions, fraternal or athletic groups, or school groups: no Total score: 3 Score interpretation: A score of greater than or equal to 2 indicates the lowest level of social isolation. Little interest or pleasure in doing things: not at all Feeling down, depressed, or hopeless: not at all Feel stressed/tense/nervous/anxious/difficulty sleeping: not at all Do you think of yourself as: straight/heterosexual Gender Identity: male Meds Home Medications and Allergies Home Medications ?Medication ?Instructions ?Recorded ?Confirmed ?Type aspirin 81 mg tablet,delayed 81 mg PO DAILY 03/27/23 11/17/24 History release donepezil 10 mg tablet (Aricept) 10 mg PO DAILY 03/27/23 11/17/24 History isosorbide mononitrate 60 mg 60 mg PO DAILY 03/27/23 11/17/24 History tablet,extended release 24 hr latanoprost 0.005 % eye drops 1 drp ophthalmic (eye) DAILY 03/27/23 11/17/24 History lisinopril 20 1 tab PO DAILY 03/27/23 11/17/24 History mg-hydrochlorothiazide 25 mg tablet lovastatin 40 mg tablet 40 mg PO DAILY 03/27/23 11/17/24 History metformin 500 mg tablet 500 mg PO DAILY 03/27/23 11/17/24 History tamsulosin 0.4 mg capsule 0.8 mg PO DAILY 03/27/23 11/17/24 History vitamins A,C,F-jxxi-bbhugm 4,296 2 cap PO DAILY 03/27/23 11/17/24 History mcg-226 mg-90 mg capsule (PreserVision AREDS) zinc 50 mg tablet 50 mg PO DAILY 10/13/23 11/17/24 History citalopram 10 mg tablet 10 mg PO QAM 10/17/23 11/17/24 History hydralazine 50 mg tablet 50 mg PO TID 10/17/23 11/17/24 History oxybutynin chloride 15 mg 15 mg PO QDAY 10/17/23 11/17/24 History tablet,extended release 24 hr sodium chloride 1,000 mg soluble 1,000 mg PO TID #0 tabs 10/17/23 11/17/24 Rx tablet naproxen 500 mg tablet 500 mg PO DAILY PRN pain 10/15/24 11/17/24 History ondansetron 4 mg disintegrating 4 mg PO Q6H PRN nausea and 10/15/24 11/17/24 Rx tablet vomiting #20 tabs sennosides 8.6 mg tablet (senna) 8.6 mg PO TID 10/15/24 11/17/24 History Allergies Allergy/AdvReac Type Severity Reaction Status Date / Time No Known Drug Allergies Allergy Verified 11/16/24 21:55 Exam Constitutional Vital Signs, click to edit/add: Last Vital Signs Temp 91 F L 11/17/24 06:51 Pulse 78 11/17/24 11:48 Resp 18 11/17/24 06:51 BP 128/67 11/17/24 06:51 Pulse Ox 91 L 11/17/24 06:51 O2 Del Method Room Air 11/17/24 06:51 Documenting provider has reviewed patient's vital signs: yes Common normals: no apparent distress, oriented x3 and alert HENMT Common normals: normocephalic Eye Common normals: PERRL and EOMs intact bilaterally Respiratory Common normals: normal respiratory effort and clear to auscultation bilaterally Cardio Common normals: regular rate, regular rhythm, no gallops, no murmurs and no rub GI Common normals: Normal to inspection, nondistended, normoactive bowel sounds present and non-tender Extremity Common normals: no pedal edema Results Labs Labs: Short CBC 11/16/24 11/17/24 Range/Units 22:34 06:12 WBC 17.8 H 14.5 H (4.0-11.0) 10^3/uL Hgb 9.2 L 9.5 L (14.0-18.0) g/dL Hct 28.4 L 29.6 L (42.0-54.0) % Plt Count 338 314 (150-450) 10^3/uL BMP 11/16/24 11/17/24 22:34 06:12 Sodium 134 L 138 Potassium 4.4 3.9 Chloride 97 L 100 Carbon Dioxide 32.8 H 29.2 BUN 27.0 H 21.0 H Creatinine 1.48 H 1.21 Glucose 142 H 110 H Calcium 8.6 8.6 Liver Function 11/16/24 11/17/24 Range/Units 22:34 06:12 Total Bilirubin 0.4 0.5 (0.2-1.0) mg/dL AST 17 18 (15-37) U/L ALT 16 14 L (16-63) U/L Alkaline Phosphatase 119 H 113 (46-116) U/L Albumin 2.8 L 2.8 L (3.4-5.0) g/dL Urine 11/16/24 Range/Units 22:35 Urine Color Lt. yellow (YELLOW) Urine Clarity Cloudy A (CLEAR) Urine pH 7.0 (5.0-9.0) Ur Specific [place] 1.010 (1.005-1.025) Urine Protein 30 A (NEG/TRACE) mg/dL Urine Glucose (UA) Negative (NEGATIVE) mg/dL Assessment and Plan Assessment and Plan (1) Urinary tract infection: Qualifiers: Urinary tract infection type: catheter-associated UTI Indwelling urinary catheter type: indwelling urethral catheter Encounter type: initial encounter Qualified Code(s): T83.511A - Infection and inflammatory reaction due to indwelling urethral catheter, initial encounter; N39.0 - Urinary tract infection, site not specified (2) Sepsis: Qualifiers: Sepsis type: sepsis due to unspecified organism Sepsis acute organ dysfunction status: without acute organ dysfunction Qualified Code(s): A41.9 - Sepsis, unspecified organism (3) Dehydration: (4) Acute kidney injury: (5) Blank catheter in place: (6) Type 2 diabetes mellitus with hyperglycemia: Qualifiers: Diabetes 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 transplanted heart: [place] heart Associated angina: without angina Qualified Code(s): I25.10 - Atherosclerotic heart disease of [place] coronary artery without angina pectoris (11) Senile dementia: (12) Lumbar spondylosis: Plan Presented with severe weakness and found sepsis as evidenced by hypotension, KARLA, elevated WBC and catheter associated UTI Continue cipro for infection and await urine culture. Labs improved with IV fluids and monitor. Start PT/OT for weakness. Resume home medication. Plan for at least a 2 midnight stay for inpatient medically necessary services.
[2024-11-17] MEDS: SENNOSIDES 8.6 MG TABLET PO ×2 (14:47→21:09)
[2024-11-17] MEDS: HYDRALAZINE HCL 50 MG TABLET PO ×2 (14:48→21:09)
[2024-11-17] MEDS: SODIUM CHLORIDE 1,000 MG TABLET 1000 MG PO ×2 (14:48→21:10)
--- OUTSIDE RECORDS SUMMARY | 2024-11-17 19:44 | XMS_ITS | CCD ---
Author Organization [facility] Care Team Providers Care Supervisor Functional Testing Name Role Phone PHYSICIAN, DEFAULT Unavailable Unavailable PHYSICIAN, DEFAULT Unavailable Unavailable SNEHA, DARRIN Unavailable Unavailable PHYSICIAN, DEFAULT Unavailable Unavailable PHYSICIAN, DEFAULT Unavailable Unavailable SNEHA, DARRIN Unavailable Unavailable UNKNOWN, PROVIDER Unavailable Unavailable UNKNOWN, PROVIDER Unavailable Unavailable SNEHA, DARRIN Unavailable Unavailable RAMON MARTINES Unavailable Unavailable ISAI Campo Attending Provider Sanaz Campo Unavailable DO Jose Eduardo Murray Attending Provider MD Ramon Martines Primary Care Provider [phone] BOBBI, DR RAMON Chen Primary Care Unavailable [...] Care Unavailable RAMON MARTINES Primary Care Physician [phone] MIKE HILARIO Attending Unavailable HARRY, MIKE Referring [...] Unavailable Ramon Martines MD Primary Care Provider [phone] Dyana STEPHENSON, Soy Scott Attending Unavailable Katko, [...] Date of Onset Reaction(s) Facility (1 source) 26079,00 Drug allergy (disorder) 11-15-2010 [facility] Repository Medications Current Medications Medication Drug Class(es) [...] Start: 07-19-2023 take 1 capsule by mo [facility] in the morning gabapentin (Neurontin) 100 [...] 60 mg by mouth. 05/05/2023 Active Isosorbide [place] itrate ER Active latanoprost (10 sources) Prostaglandin [...] for 7 day(s), 85 gm, Refill(s) 0, [facility], 177, cm, 05/31/24 10:47:00 EDT, Height/Length [...] Daily, # 60 tab(s), Refills(s) 11, Pharmacy: [facility], 177, cm, 01/30/24 11:11:00 EDT, Height/Length [...] (1 source) PreserVision ARE DS Active sennosides, chcf 8.6 mg oral capsule (13 sources) Start: [...] disease (16 sources) Atherosclerotic heart disease of [place] coronary artery with unstable angina pectoris; Translations: [...] Arthritis 03-02-2020 Chronic Other aftercare (1 source) [facility] (current) use of antithrombotics/antip latelets; Translations: [CARE HOME (CURRENT) USE OF ANTITHROMBOTICS/ANTIP LATELETS] Onset: 05-29-2018 Episodic Other aftercare (2 sources) 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; Translations: [SOLDERER PRODUCTION LINE (CURRENT) USE OF ASPIRIN] Onset: 05-29-2018 Episodic Other aftercare (1 source) 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; Translations: [OTH CARE HOME CURRENT DRUG THERAPY] Onset: 12-28-2022 Episodic Other aftercare (1 source) [facility] (current) use of oral hypoglycemic drugs; Translations: [SOLDERER PRODUCTION LINE USE ORAL HYPOGLYCEMIC DX] Onset: 12-28-2022 Episodic [...] / UNK(Unknown) Onset: 05-29-2018 Unclassified (1 source) 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; Translations: [SOLDERER PRODUCTION LINE (CURRENT) USE OF ORAL HYPOGLYCEMIC DRUGS] Onset: [...] current use of drug therapy; Translations: [Other half-way (current) drug therapy] Onset: 12-13-2023 12-13-2023 Episodic Other aftercare (7 sources) Patient encounter status; Translations: [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 Normal [facility] Comment on above: Performed By: #### CUU #### [place] [id number] [facility] Ambulatory Visit Summaryon 1 [...] 11:00 AM EST Where: [facility] [address] [place] [address] [place] [address]- Medications What How Much When Instructions New miconazole topical (miconazole topical 2% powder) 1 Application Topical 2 times a day Duration: 7 Days Pickup at [facility] Unchanged aspirin (aspirin 81 mg Oral [...] (Zinc) By Mouth Every day Pharmacy Information [facility]: [address] [place], [place] [id number] [phone] Allergies No Known Allergies Problems Ongoing - [...] for choosing us for your care. Normal [facility] Ambulatory Visit Summaryon 1 Ambulatory [...] 11:00 AM EDT Where: [facility] [place] [id number]- Medications What How Much When Instructions Unchanged [...] you for choosing us for your care. [facility] Ambulatory Visit Summaryon 0 06-21-2024 Ambulatory [...] 11:00 AM EDT Where: [facility] [address] [place] [address]- Medications What How Much When Instructions Unchanged [...] for choosing us for your care. Normal [facility] ALL BASIC METABOLIC PANELon 06-04-2024 Anion gap [Moles/Vol] 8.5 mmol/L [facility] Calcium [Mass/Vol] 9.0 mg/dL 8.5 - 10.1 mg/dL [facility] Chloride [Moles/Vol] 92 mmol/L Low 98 - 107 mmol/L [facility] CO2 [Moles/Vol] 33.6 mmol/L High 21.0 - 32.0 mmol/L [facility] Creatinine [Mass/Vol] 1.23 mg/dL 0.70 - 1.30 mg/dL [facility] GFR/1.73 sq M.predicted CKD-EPI (S/P/Bld) [Vol rate/Area] >60 60 - PINF [facility] Glucose [Mass/Vol] 107 mg/dL High 74 - 106 mg/dL [facility] Interpretation and review of laboratory results Abnormal [facility] Potassium [Moles/Vol] 4.1 mmol/L 3.5 - 5.1 mmol/L [facility] Sodium [Moles/Vol] 130 mmol/L Low 136 - 145 mmol/L [facility] TBH EGFR-NON AF NAURUAN 56 Low 60 - [facility]F [facility] Urea nitrogen [Mass/Vol] 17.0 mg/dL 7.0 - 18.0 mg/dL [facility] Urea nitrogen/Creatin ine [Mass ratio] 13.8 mg/mg [facility] C Urineon 06-02-2024 Bacteria identified Cx [facility] (U) Microbiology PROCEDURE: Urine Culture [R1] [...] R1: This test was performed at: [facility], [address] [place] [address], [id number] , [place], [facility] Comment on above: Performed By: #### [id number] #### [facility] [address] [place] [address] Urology Office/Clinic Noteon 05-31-2024 Urology Office/Clinic Note Urology Office/Clinic Note Chief Complaint Severe incontinence pt wears a condom catheter [facility] Staff 4 month f/u to cysto/uros done 01/30/24. Last seen IO 12/01/23. Dx: hx of prostate cancer *Brachytherapy ~20yrs ago*, incontinence wo sensory awareness OAB, BPH wiht obstruction, hx of UTI. *Tamsulosin 0.8mg BID and increased Oxybutynin ER 20mg qd May 24 pt had blood in his urine and was taken to the [facility] ED and was started on Cefdinir [...] Bladder: condom catheter. Assessment/Plan Residing at [facility]. Pt accompanied by . 1. Gross hematuria (R31.0: Gross hematuria) Pt presented to [facility] ER 05/24/24 with gross hematuria. Started [...] urination, but after he went to the [facility] on 10/17/23 the catheter was removed within a week of being there due to his urine having pus and thought he needed treatment for UTI. Treated with antibiotic but does not know which one. reports pt has back issues. States the reason he is at [facility] is due to the inability to walk. [...] Contact Information Deven BUTLER MD, URL [address] [place] [address]- Additional Instructions: Catheter change in 4 weeks Patient Education Indwelling Urinary Catheter Care, Adult I, Shena Taylor, personally scribed for (more content not included)... Normal [facility] Comment on above: Result Comment: Electronically Signed By : Deven BUTLER MD\.br\Date and Time Signed: 05/31/24 11:13 EDT\.br\Electronically Co-Signed By: Shena Taylor\.br\Date and Time Co-Signed: 05/31/24 11:02 EDT\.br\Electronically Co-Signed By: Shena Taylor\.br\Date and Time Co-Signed: 05/31/24 11:07 EDT Office Visiton 04-02-2024 Follow-up visit [id number] Edwin Orourke 1935 Date Provider Department Center 04/02/2024 MIKE CASTILLO [facility] No family history on file Level of Service:63692 RI OFFICE/OUTPATIENT ESTABLISHED LOW MDM 20 MIN Normal [facility] Consent for Procedure/Surger yon 01-30-2024 Consent for Procedure/Surger y [id number]#1.00TIFF Normal [facility] Consent for Treatmenton 01-14 Consent for Treatment [id number]#1.00TIFF [facility] IntraOperative Documentson 0 01-30-2024 IntraOperative Documents [id number]#1.00TIFF [facility] IntraOperative Documents [id number]#1.00TIFF Quinten [facility] Main OR Intraoperative Recor don 01-30-2024 Main OR Intraoperative Record IntraOp Document Type FTURO Summary Primary Physician: Deven BUTLER MD Finalized Date/Time: 01/30/24 11:23:13 Pt. Name: EDWIN OROURKE /Sex: 1935 Male Med Rec #: [id number] Physician: Deven BUTLER MD Financial #: [id number] Pt. 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 Name: MYRON OROURKEFRIEDA Zimmerman D.O.B./Sex: 1935 Male Med Rec #: [id number] Physician: Deven BUTLER MD Financial #: [id number] Pt. Type: O Room/Bed: / Admit/Disch: 01/30/24 [...] 11:11 Jaylene Castillo RN 01/30/24 11:20 Normal [facility] Operative Reporton Operative Report Patient: EDWIN ROOURKE Age: 89 years Sex: Male : 1935 [...] oxybutynin ER to 20 mg daily. Normal [facility] Comment on above: Result Comment: Electronically Signed By : Deven BUTLER MD\.br\Date and Time Signed: 01/30/24 11:30 EDT Outpatient Surgery Discharge Instructionon 01-30-2024 Outpatient Surgery Discharge Instruction [id number]#1.00TIFF Normal [facility] Progress Note-Physicianon Progress Note-Physician Patient: [...] list: All Problems Arthritis / SNOMED CT 9446922 / Confirmed History of prostate cancer / SNOMED CT 8069319865 / Confirmed Deafness / SNOMED CT 95206364 / Confirmed Diabetes / SNOMED CT 831211542 / Confirmed Glaucoma / SNOMED CT 56298940 / Confirmed Heart disease / SNOMED CT 37782158 / Confirmed Erectile dysfunction / SNOMED CT 0017616006 / Confirmed BPH with urinary obstruction / SNOMED CT 5752652703 / Confirmed Anticoagulated / SNOMED CT 713307173 / Confirmed OAB (overactive bladder) / SNOMED CT 1899692786 / Confirmed Incontinence without sensory awareness / SNOMED CT 3342806967 / Confirmed History of UTI / SNOMED CT 2877685561 / Confirmed Histories Past Medical History: No active or resolved past medical history items have been selected or recorded. Family History: Procedure history: Appendectomy (923334937). CE - Cataract extraction (6542976538). Placement of stent in cardiac conduit (3381144549). Arthroplasty of knee bilateral (86152475). Implantation of radioactive seed into prostate (4738800933). Social History Social & Psychosocial Habits Alcohol [...] We will reevaluate in 4 months. Normal [facility] Comment on above: Result Comment: Electronically Signed By : MÓNICA STEPHENSON, Deven Lyons.idalia\Date and Time Signed: 01/30/24 11:35 EDT Office Visiton 12-26-2023 Follow-up visit [id number] Edwin Orourke 1935 M Date Provider Department Center 12/26/2023 Jose Juan-MIKE HILARIO CARD [facility] No family history on file Level of Service:89369 RI OFFICE/OUTPATIENT ESTABLISHED LOW MDM 20 MIN Normal [facility] Ambulatory Visit Summaryon 0 12-01-2023 Ambulatory Visit [...] MÓNICA STEPHENSON, Deven Zimmerman, URL When: Where: [address] [place] [address]- Medications What How Much When Instructions Unchanged [...] uterus. ? (more content not included)... Normal [facility] Home Recordson 12-01 Long Term Records [id number]#1.00TIFF Normal [facility] Long Term Records [id number]#1.00TIFF Normal [facility] Patient Educationon 12-01-19 Patient Education [...] stimulation). ? For women, using a medical assistant float to prevent urine leaks. This is a [...] ? (more content not included)... Normal [facility] Urology Office/Clinic Noteon 12-01-2023 Urology [...] urination but after he went to the [facility] on 10/17/23 the catheter was removed within [...] here with his today. Residing at [facility]. 1. History of prostate cancer (Z85.46: Personal history of malignant neoplasm of prostate) PSA: 02/06/20 - <0.05 Latest PSA on file. S/p brachytherapy approx. 20 years ago. 2. Incontinence without sensory awareness (N39.42: Incontinence without sensory awareness) Reports he had a catheter placed in the hospital at the end of 09/2023 due to uncontrolled urination, but after he went to the [facility] on 10/17/23 the catheter was removed within [...] States the reason he is at [facility] is due to the inability to walk. [...] When Contact Information MÓNICA STEPHENSON, Deven Zimmerman, [address] [address]- Additional Instructions: Scheduling cysto and uro's Patient Education Urinary Incontinence I, Shena Taylor, personally scribed for Dr. Butler on 12/01/2023 10:07:45. Elect (more content not included)... [facility] Comment on above: Result Comment: Electronically Signed By : Deven BUTLER MD\.br\Date and Time Signed: 12/01/23 10:12 EST\.br\Electronically Co-Signed By: Shena Taylor\.br\Date and Time Co-Signed: 12/01/23 10:08 EST Lab Reportson 10-18-2023 Lab Reports [id number]#1.00TIFF [facility] Lab Reportson 10-17-2023 Lab Reports [id number]#1.00TIFF [facility] Lab Reports [id number]#1.00TIFF [facility] Lab Reports [id number]#1.00TIFF [facility] Lab Reports [id number]#1.00TIFF [facility] Lab Reports [id number]#1.00TIFF Normal [facility] Lab Reports [id number]#1.00TIFF Normal [facility] Lab Reports [id number]#1.00TIFF Normal [facility] Lab Reports [id number]#1.00TIFF Normal [facility] Lab Reports [id number]#1.00TIFF Normal [facility] Office Visiton 10-11-2023 Follow-up visit [id number] HavenMyronEdwin R 1935 M Date Provider Department Center 10/11/2023 ЕЛЕНА SALMON [facility] No family history on file Level of Service:18570 RI POSTOP FOLLOW UP VISIT RELATED TO ORIGINAL PX Normal [facility] HPon 10-02-2023 [facility] Electrophysiology Note Reason for visit: bradycardia [...] discontinued due to having ER visit with [facility] for complaints of dizziness and was [...] ECG 05/04/2018: Atrial fibrillation, possible old septal MO. ECG 05/28/2018 showed sinus rhythm with 1st degree AV block and PAC. Possible anteroseptal MO. ECG today 03/21/2019: sinus rhythm with 1st [...] alcohol abuse, Hematolog (more content not included)... [facility] NURSNOTEon 10-02-2023 NURSNOTE RN educated pt on d/ c instructions. RN encouraged pt to voice any questions or concerns. Pt verbalizes no questions or concerns at this time. Pt was wheeled off of unit with all of belongings. [facility] NURSNOTE CHG wipes and betadi ne nasal swabs completed. [facility] Orders Onlyon 10-02-2023 Orders Only [id number] Edwin Orourke 1935 M Date Provider Department Center 10/02/2023 EMETERIO GONZALEZ [facility] No family history on file Normal [facility] Orders Onlyon 09-25-2023 Orders Only [id number] Edwin Orourke 1935 M Date Provider Department Center 09/25/2023 EMETERIO GONZALEZ [facility] No family history on file Normal [facility] Telemedicineon 08-22-2023 Telemedicine [id number] Edwin Orourke R 1935 M Date Provider Department Center 08/22/2023 MIKE CASTILLO [facility] No family history on file Level of Service:94159 RI PHYS/QHP TELEPHONE EVALUATION 11-20 MIN Normal [facility] 36on 07-27-2023 36 No vm Normal [facility] PROF CHEM 8 (BAS METB)on Anion gap [Moles/Vol] 10.7 mmol/L Normal [facility] Comment on above: Performed By: #### TSH #### [facility] [address] [place] [address] [address] Yue Vega Calcium [Mass/Vol] 9.4 mg/dL Normal 8.5-10.1 [facility] Comment on above: Performed By: #### TSH #### [facility] [address] [place] [address] [address] Yue Vega Chloride [Moles/Vol] 97 mmol/L Critically low 98-107 [facility] Comment on above: Performed By: #### TSH #### [facility] [address] [place] [address] [address] Yue Vega CO2 [Moles/Vol] 31.8 mmol/L Normal 21.0-32.0 [facility] Comment on above: Performed By: #### TSH #### [facility] [address] [place] [address] [address] Yue Vega Creatinine [Mass/Vol] 1.23 mg/dL Normal 0.70-1.30 [facility] Comment on above: Performed By: #### TSH #### [facility] [address] [place] [address] [address] Yue Vega EGFR-AF NAURUAN >60 Normal >=60 [facility] Comment on above: Performed By: #### TSH #### [facility] [address] [place] [address] [address] Yue Vega EGFR-NON AF NAURUAN 56 mL/min/1.73m2 Critically low >=60 [facility] Comment on above: Performed By: #### TSH #### [facility] [address] [place] [address] [address] Yue Vega Glucose [Mass/Vol] 153 mg/dL Critically high 74-106 [facility] Comment on above: Performed By: #### TSH #### [facility] [address] [place] [address] [address] Yue Vega Potassium [Moles/Vol] 4.5 mmol/L Normal 3.5-5.1 [facility] Comment on above: Performed By: #### TSH #### [facility] [address] [place] [address] [address] Yue Vega Sodium [Moles/Vol] 135 mmol/L Critically low 136-145 [facility] Comment on above: Performed By: #### TSH #### [facility] [address] [place] [address] [address] Yue Vega Urea nitrogen [Mass/Vol] 22.0 mg/dL Critically high 7.0-18.0 [facility] Comment on above: Performed By: #### TSH #### [facility] [address] [place] [address] [address] Yue Vega Urea nitrogen/Creatin ine [Mass ratio] 17.9 mg/mg Normal [facility] Comment on above: Performed By: #### TSH #### [facility] [address] [place] [address] [address] Yue Vega Creatinine (Bld) [Mass/Vol]O rdered By: Suzi Murray on 01-06-2023 Creatinine [Mass/Vol] 1.2 mg/dL 0.6-1.3 [facility] Comment on above: ER/ESD physician is notified/shown all I STAT results.Critical values may be confirmed by laboratory testing ifdeemed necessary by ER attending doctor. BNPon 12-26-2022 Natriuretic peptide B (Bld) [Mass/Vol] 483.0 pg/mL Normal <=1,800.0 [facility] Comment on above: Performed By: #### TSH #### [facility] [address] [place] [address] [address] Yue Vega CARDIAC MAMTA ADMITon 023 CK [Catalytic activity/Vol] 121 U/L Normal 39-308 [facility] Comment on above: Performed By: #### TSH #### [facility] [address] [place] [address] Dr. Yue Vega CK.MB [Mass/Vol] 1.73 ng/mL Normal <=3.60 [facility] Comment on above: Performed By: #### TSH #### [facility] [address] [place] [address] [address] Yue Vega HSTROP 11.9 pg/mL Normal 4.0-76.1 [facility] Comment on above: Result Comment: CUT-OFF POINTS HAVE BEEN ESTABLISHED BASED ON THE FOURTH UNIVERSAL DEFINITIONS OF MYOCARDIAL INFARCTION. THE UPPER REFERENCE LIMIT (URL) OF TROPONIN, DEFINED THE 99TH PERCENTILE OF cTnI DISTRIBUTION IN A REFERENCE POPULATION, HAS BEEN CONFIRMED THE DECISION THRESHOLD FOR MO DIAGNOSIS. Performed By: #### T SH #### [facility] [address] [place] [address] [address] Yue Vega CARI 113 ng/mL Critically high 16-96 [facility] Comment on above: Performed By: #### TSH #### [facility] [address] [place] [address] [address] Yue Vega CBC AUTO DIFFon 12-26-2022 BASO # 0.1 103/ul Normal 0.0-0.1 [facility] Comment on above: Performed By: #### TSH #### [facility] [address] [place] [address] [address] Yue Vega Basophils/100 WBC (Bld) 0.5 % Normal 0.2-2.0 [facility] Comment on above: Performed By: #### TSH #### [facility] [address] [place] [address] [address] Yue Vega EO # 0.0 103/ul Normal 0.0-0.7 [facility] Comment on above: Performed By: #### TSH #### [facility] [address] [place] [address] Dr. Yue Vega Eosinophils/100 WBC (Bld) 0.3 % Critically low 0.9-7.0 [facility] Comment on above: Performed By: #### TSH #### [facility] [address] [place] [address] [address] Yue Vega Erythrocyte distribution width (RBC) [Ratio] 12.4 % Normal 11.0-15.0 [facility] Comment on above: Performed By: #### TSH #### [facility] [address] [place] [address] Dr. Yue Vega Hematocrit (Bld) [Volume fraction] 42.7 % Normal 42.0-54.0 [facility] Comment on above: Performed By: #### TSH #### [facility] [address] [place] [address] Dr. Yue Vega Hemoglobin (Bld) [Mass/Vol] 14.5 g/dL Normal 14.0-18.0 [facility] Comment on above: Performed By: #### TSH #### [facility] [address] [place] [address] Dr. Yue Vega IG # 0.05 10e3/ul Critically high 0.00-0.03 [facility] Comment on above: Performed By: #### TSH #### [facility] [address] [address] [address] Yue Vega IG % 0.4 % Normal 0.0-0.5 [facility] Comment on above: Performed By: #### TSH #### [facility] [address] [place] [address] Dr. Yue Vega LYMPH # 1.4 103/ul Normal 1.2-3.8 [facility] Comment on above: Performed By: #### TSH #### [facility] [address] [place] [address] Dr. Yue Vega Lymphocytes/100 WBC (Bld) 10.7 % Critically low 20.5-60.0 [facility] Comment on above: Performed By: #### TSH #### [facility] [address] [place] [address] Dr. Yue Vega MANUAL DIFF REQ NO Normal [facility] Comment on above: Performed By: #### TSH #### [facility] [address] [place] [address] Dr. Yue Vega MCH (RBC) [Entitic mass] 30.7 pg Normal 25.9-34.0 [facility] Comment on above: Performed By: #### TSH #### [facility] [address] [place] [address] Dr. Yue Vega MCHC (RBC) [Mass/Vol] 34.0 g/dL Normal 29.9-35.2 [facility] Comment on above: Performed By: #### TSH #### [facility] [address] [place] [address] Dr. Yue Vega MCV (RBC) [Entitic vol] 90.3 fL Normal 80.0-94.0 [facility] Comment on above: Performed By: #### TSH #### [facility] [address] [place] [address] Dr. Yue Vega MONO # 0.5 103/ul Normal 0.3-0.8 [facility] Comment on above: Performed By: #### TSH #### [facility] [address] [place] [address] Dr. Yue Vega Monocytes/100 WBC (Bld) 4.2 % Normal 1.7-12.0 [facility] Comment on above: Performed By: #### TSH #### [facility] [address] [place] [address] Dr. Yue Vega NEUT # 10.8 103/ul Critically high 1.4-6.5 [facility] Comment on above: Performed By: #### TSH #### [facility] [address] [address] [address] Yue Vega Neutrophils/100 WBC (Bld) 83.9 % Critically high 43.0-75.0 [facility] Comment on above: Performed By: #### TSH #### [facility] [address] [place] [address] Dr. Yue Vega Platelet mean volume (Bld) [Entitic vol] 9.6 fL Normal 9.5-13.5 [facility] Comment on above: Performed By: #### TSH #### [facility] [address] [place] [address] Dr. Yue Vega PLT 223 103/ul Normal 150-450 [facility] Comment on above: Performed By: #### TSH #### [facility] [address] [place] [address] Dr. Yue Vega RBC 4.73 106/ul Normal 4.70-6.10 [facility] Comment on above: Performed By: #### TSH #### [facility] [address] [place] [address] Dr. Yue Vega WBC 12.9 103/ul Critically high 4.0-11.0 [facility] Comment on above: Performed By: #### TSH #### [facility] [address] [place] [address] HEAD WO CONon [...] simple appearing cyst. Electronically authenticated by: SUZI NANEC Date: 2022-12-26 14:21 Normal [facility] ER URINE PROFILEon 3 Bilirubin Ql (U) Negative Normal NEGATIVE [facility] Comment on above: Performed By: #### YAMIL UMICRO #### [facility] [address] [place] [address] Dr. Yue Vega Clarity (U) CLEAR Normal CLEAR [facility] Comment on above: Performed By: #### YAMIL UMMELVINRO #### [facility] [address] [place] [address] Dr. Yue Vega Color (U) LT. YELLOW Normal YELLOW [facility] Comment on above: Performed By: #### SERG LOBORO #### [facility] [address] [place] [address] Dr. Yue ALCOCER A micrscopic examina tion will be performed if indicated. Normal [facility] Comment on above: Performed By: #### YAMIL UMMELVINRO #### [facility] [address] [address] [address] Yue Vega Glucose Ql (U) 250 mg/dl Abnormal NEGATIVE [facility] Comment on above: Performed By: #### SERG LOBORO #### [facility] [address] [place] [address] Dr. Yue Vega Hemoglobin Ql (U) Negative Normal NEGATIVE [facility] Comment on above: Performed By: #### YAMIL UMMELVINRO #### [facility] [address] [place] [address] Dr. Yue Vega Ketones Ql (U) Negative Normal NEGATIVE [facility] Comment on above: Performed By: #### YAMIL UMMELVINRO #### [facility] [address] [place] [address] Dr. Yue Vega LEUKOCYTES Negative Normal NEGATIVE [facility] Comment on above: Performed By: #### ERUR, UMICRO #### [facility] [address] [address] [address] Yue Vega Nitrite Ql (U) Negative Normal NEGATIVE [facility] Comment on above: Performed By: #### ERUR, UMICRO #### [facility] [address] [address] [address] Yue Vega pH (U) 7.0 [pH] Normal 5-9 [facility] Comment on above: Performed By: #### ERUR, UMICRO #### [facility] [address] [address] [address] Yue Vega Protein (U) [Mass/Vol] 30 mg/dL Abnormal NEGATIVE/ TRACE [facility] Comment on above: Performed By: #### YAMIL, UMICRO #### [facility] [address] [place] [address] Dr. Yue Vega SPEC GRAVITY 1.015 Normal 1.005-<=1. 025 [facility] Comment on above: Performed By: #### YAMIL UMICRO #### [facility] [address] [address] [address] Yue Vega UR MICRO IND INDICATED Normal [facility] Comment on above: Performed By: #### ERUElsie, UMICRO #### [facility] [address] [place] [address] Dr. Yue Vega Urobilinogen Qn (U) 0.2 {Anat'U}/dL Normal 0.2 - 1.0 [facility] Comment on above: Performed By: #### ERUElsie, UMICRO #### [facility] [address] [address] [address] Yue Vega PROF 14(COMP METB)on 023 Albumin [Mass/Vol] 4.1 g/dL Normal 3.4-5.0 [facility] Comment on above: Performed By: #### TSH #### [facility] [address] [place] [address] Dr. Yue Vega Albumin/Globulin [Mass ratio] 1.1 {ratio} Normal [facility] Comment on above: Performed By: #### TSH #### [facility] [address] [address] [address] Yue Vega ALP [Catalytic activity/Vol] 110 U/L Normal 46-116 [facility] Comment on above: Performed By: #### TSH #### [facility] [address] [address] [address] Yue Vega ALT [Catalytic activity/Vol] 24 U/L Normal 16-63 [facility] Comment on above: Performed By: #### TSH #### [facility] [address] [address] [address] Yue Vega Anion gap [Moles/Vol] 9.5 mmol/L Normal [facility] Comment on above: Performed By: #### TSH #### [facility] [address] [place] [address] Dr. Yue Vega AST [Catalytic activity/Vol] 25 U/L Normal 15-37 [facility] Comment on above: Performed By: #### TSH #### [facility] [address] [place] [address] Dr. Yue Vega Bilirubin [Mass/Vol] 1.2 mg/dL Critically high 0.2-1.0 [facility] Comment on above: Performed By: #### TSH #### [facility] [address] [place] [address] Dr. Yue Vega Calcium [Mass/Vol] 9.3 mg/dL Normal 8.5-10.1 [facility] Comment on above: Performed By: #### TSH #### [facility] [address] [place] [address] Dr. Yue Vega Chloride [Moles/Vol] 96 mmol/L Critically low 98-107 [facility] Comment on above: Performed By: #### TSH #### [facility] [address] [place] [address] Dr. Yue Vega CO2 [Moles/Vol] 29.4 mmol/L Normal 21.0-32.0 [facility] Comment on above: Performed By: #### TSH #### [facility] [address] [address] [address] Yue Vega Creatinine [Mass/Vol] 1.09 mg/dL Normal 0.70-1.30 [facility] Comment on above: Performed By: #### TSH #### [facility] [address] [address] [address] Yue Vega EGFR-AF NAURUAN >60 Normal >=60 [facility] Comment on above: Performed By: #### TSH #### [facility] [address] [address] [address] Yue Vega EGFR-NON AF NAURUAN >60 Normal >=60 [facility] Comment on above: Performed By: #### TSH #### [facility] [address] [address] [address] Yue Vega Globulin (S) [Mass/Vol] 3.8 g/dL Normal [facility] Comment on above: Performed By: #### TSH #### [facility] [address] [address] [address] Yue Vega Glucose [Mass/Vol] 218 mg/dL Critically high 74-106 [facility] Comment on above: Performed By: #### TSH #### [facility] [address] [place] [address] Dr. Yue Vega Potassium [Moles/Vol] 3.9 mmol/L Normal 3.5-5.1 [facility] Comment on above: Performed By: #### TSH #### [facility] [address] [place] [address] Dr. Yue Vega Protein [Mass/Vol] 7.9 g/dL Normal 6.4-8.2 [facility] Comment on above: Performed By: #### TSH #### [facility] [address] [place] [address] Dr. Yue Vega Sodium [Moles/Vol] 131 mmol/L Critically low 136-145 [facility] Comment on above: Performed By: #### TSH #### [facility] [address] [address] [address] Yue Vega Urea nitrogen [Mass/Vol] 19.0 mg/dL Critically high 7.0-18.0 [facility] Comment on above: Performed By: #### TSH #### [facility] [address] [place] [address] Dr. Yue Vega Urea nitrogen/Creatin ine [Mass ratio] 17.4 mg/mg Normal [facility] Comment on above: Performed By: #### TSH #### [facility] [address] [place] [address] Dr. Yue Vega PROTIMEon 12-26-2022 INR Coag (PPP) [Relative time] 1.00 {INR} Normal [facility] Comment on above: Performed By: #### PTT, PT #### [facility] [address] [place] [address] Dr. Yue Vega INR GUIDELINES SEE BELOW Normal [facility] Comment on above: Result Comment: DESIRED INR: 2.0 - 3.0 C ONDITIONS NOT LISTED BELOW 2.5 - 3.5 FOR PROSTHETIC HEART VALVE REPLACEMENT 2.5 - 3.5 RECURRENT THROMBOSIS Performed By: #### P TT, PT #### [facility] [address] [place] [address] Dr. Yue Vega PT Coag (PPP) [Time] 10.6 s Normal 9.0-11.6 [facility] Comment on above: Performed By: #### PTT, PT #### [facility] [address] [place] [address] Dr. Yue Vega PTTon 12-26-2022 aPTT Coag (Bld) [Time] 29.8 s Normal 22.3-36.2 [facility] Comment on above: Performed By: #### PTT, PT #### [facility] [address] [place] [address] Dr. Yue Vega TSHon 12-26-2022 TSH 2.693 uIU/mL Normal 0.358-3.74 0 [facility] Comment on above: Performed By: #### TSH #### [facility] [address] [place] [address] Dr. Yue Vega URINE MICROSCOPIC ONLYon BACTERIA NONE SEEN Normal NONE SEEN [facility] Comment on above: Performed By: #### ERUR, UMICRO #### [facility] [address] [place] [address] Dr. Yue Vega Bacteria identified Cx Nom (U) NOT INDICATED Normal [facility] Comment on above: Performed By: #### ERUR, UMICRO #### [facility] [address] [place] [address] Dr. Yue Vega CAST NONE SEEN Normal NONE SEEN [facility] Comment on above: Performed By: #### ERUR, UMICRO #### [facility] [address] [place] [address] Dr. Yue Vega Crystals LM Nom (Urine sed) NONE SEEN Normal NONE SEEN [facility] Comment on above: Performed By: #### ERUR, UMICRO #### [facility] [address] [place] [address] Dr. Yue Vega Epithelial cells LM Ql (Urine sed) NONE SEEN Normal NONE SEEN /RARE [facility] Comment on above: Performed By: #### YAMIL UMICRO #### [facility] [address] [place] [address] Dr. Yue Vega MUCOUS NONE SEEN Normal NONE SEEN [facility] Comment on above: Performed By: #### ERUR UMICRO #### [facility] [address] [place] [address] Dr. Yue Vega RBC 0-2 Normal 0-2 [facility] Comment on above: Performed By: #### YAMIL UMICRO #### [facility] [address] [place] [address] Dr. Yue Vega WBC NONE SEEN Normal NONE SEEN [facility] Comment on above: Performed By: #### YAMIL UMICRO #### [facility] [address] [place] [address] Dr. Yue Vega XR CHEST 1 Von [...] SAYRA GUILLAUME Date: 2022-12-26 13:12 Normal [facility] METHYLMALONIC ACID (MMA)on 0 12-25-2022 Methylmalonic Acid, Serum 180 nmol/L Normal 0-378 [facility] Comment on above: Performed By: #### MMA2 #### [facility] [address] [place] [address] Dr. Yue Vega TSHon 12-21-2022 TSH 2.790 uIU/mL Normal 0.358-3.74 0 [facility] Comment on above: Performed By: #### TSH #### [facility] [address] [place] [address] Dr. Yue Vega VITAMIN B12on 12-21-2022 Cobalamin (Vitamin B12) [Mass/Vol] 919.0 pg/mL Normal 193.0-986. 0 [facility] Comment on above: Performed By: #### TSH #### [facility] [address] [place] [address] Dr. Yue Vega CBC AUTO DIFFon 09-26-2022 BASO # 0.1 103/ul Normal 0.0-0.1 [facility] Comment on above: Performed By: #### CBC #### [facility] [address] [place] [address] Dr. Yue Vega Basophils/100 WBC (Bld) 0.5 % Normal 0.2-2.0 [facility] Comment on above: Performed By: #### CBC #### [facility] [address] [place] [address] Dr. Yue Vega EO # 0.2 103/ul Normal 0.0-0.7 [facility] Comment on above: Performed By: #### CBC #### [facility] [address] [place] [address] Dr. Yue Vega Eosinophils/100 WBC (Bld) 2.1 % Normal 0.9-7.0 [facility] Comment on above: Performed By: #### CBC #### [facility] [address] [place] [address] Dr. Yue Vega Erythrocyte distribution width (RBC) [Ratio] 12.3 % Normal 11.0-15.0 [facility] Comment on above: Performed By: #### CBC #### [facility] [address] [place] [address] Dr. Yue Vega Hematocrit (Bld) [Volume fraction] 42.0 % Normal 42.0-54.0 [facility] Comment on above: Performed By: #### CBC #### [facility] [address] [place] [address] Dr. Yue Vega Hemoglobin (Bld) [Mass/Vol] 13.9 g/dL Critically low 14.0-18.0 [facility] Comment on above: Performed By: #### CBC #### [facility] [address] [place] [address] Dr. Yue Vega IG # 0.03 10e3/ul Normal 0.00-0.03 [facility] Comment on above: Performed By: #### CBC #### [facility] [address] [place] [address] Dr. Yue Vega IG % 0.3 % Normal 0.0-0.5 [facility] Comment on above: Performed By: #### CBC #### [facility] [address] [place] [address] Dr. Yue Vega LYMPH # 1.9 103/ul Normal 1.2-3.8 [facility] Comment on above: Performed By: #### CBC #### [facility] [address] [place] [address] Dr. Yue Vega Lymphocytes/100 WBC (Bld) 19.8 % Critically low 20.5-60.0 [facility] Comment on above: Performed By: #### CBC #### [facility] [address] [place] [address] Dr. Yue Vega MANUAL DIFF REQ NO Normal [facility] Comment on above: Performed By: #### CBC #### [facility] [address] [place] [address] Dr. Yue Vega MCH (RBC) [Entitic mass] 30.5 pg Normal 25.9-34.0 [facility] Comment on above: Performed By: #### CBC #### [facility] [address] [place] [address] Dr. Yue Vega MCHC (RBC) [Mass/Vol] 33.1 g/dL Normal 29.9-35.2 [facility] Comment on above: Performed By: #### CBC #### [facility] [address] [place] [address] Dr. Yue Vega MCV (RBC) [Entitic vol] 92.3 fL Normal 80.0-94.0 [facility] Comment on above: Performed By: #### CBC #### [facility] [address] [place] [address] Dr. Yue Vega MONO # 0.9 103/ul Critically high 0.3-0.8 [facility] Comment on above: Performed By: #### CBC #### [facility] [address] [place] [address] Dr. Yue Vega Monocytes/100 WBC (Bld) 9.5 % Normal 1.7-12.0 [facility] Comment on above: Performed By: #### CBC #### [facility] [address] [place] [address] Dr. Yue Vega NEUT # 6.4 103/ul Normal 1.4-6.5 [facility] Comment on above: Performed By: #### CBC #### [facility] [address] [place] [address] Dr. Yue Vega Neutrophils/100 WBC (Bld) 67.8 % Normal 43.0-75.0 [facility] Comment on above: Performed By: #### CBC #### [facility] [address] [address] [address] Yue Vega Platelet mean volume (Bld) [Entitic vol] 9.4 fL Critically low 9.5-13.5 [facility] Comment on above: Performed By: #### CBC #### [facility] [address] [address] [address] Yue Vega PLT 264 103/ul Normal 150-450 [facility] Comment on above: Performed By: #### CBC #### [facility] [address] [address] [address] Yue Vega RBC 4.55 106/ul Critically low 4.70-6.10 [facility] Comment on above: Performed By: #### CBC #### [facility] [address] [address] [address] Yue Vega WBC 9.4 103/ul Normal 4.0-11.0 [facility] Comment on above: Performed By: #### CBC #### [facility] [address] [address] [address] Yue Vega GLYCOHEMOGLOBIN A1Con 2021 ADA RECOMMENDATION SEE BELOW Normal [facility] Comment on above: Result Comment: ADA RECOMMENDED LIMIT 4. 0 - 6.0 ADA THERAPEUTIC TARGET < 7.0 ACTION SUGGESTED > 7.0 Performed By: #### A 1C #### [facility] [address] [address] [address] Yue Vega Glucose [Mass/Vol] 169 mg/dL Normal [facility] Comment on above: Performed By: #### A1C #### [facility] [address] [address] [address] Yue Vega HbA1c (Bld) [Mass fraction] 7.5 % Critically high 4.5-6.2 [facility] Comment on above: Performed By: #### A1C #### [facility] [address] [address] [address] Yue Vega LIPID PROFILEon 09-26-2022 CHOL-HDL RATIO NORM SEE BELOW Normal [facility] Comment on above: Result Comment: 3.3 - 4.4 LOW RISK 4.4 - 7.1 AVERAGE RISK 7.1 - 11.0 MODERATE RISK >11.0 HIGH RISK Performed By: #### T SH #### [facility] [address] [address] [address] Yue Vega Cholesterol [Mass/Vol] 134 mg/dL Normal <=200 [facility] Comment on above: Performed By: #### TSH #### [facility] [address] [address] [address] Yue Vega Cholesterol in HDL [Mass/Vol] 51 mg/dL Normal 40-60 [facility] Comment on above: Performed By: #### TSH #### [facility] [address] [address] [address] Yue Vega Cholesterol in LDL [Mass/Vol] 63.4 mg/dL Normal [facility] Comment on above: Performed By: #### TSH #### [facility] [address] [address] [address] Yue Vega Cholesterol.tota l/Cholesterol in HDL [Mass ratio] 2.6 {ratio} Normal [facility] Comment on above: Performed By: #### TSH #### [facility] [address] [address] [address] Yue Vega HDL NORMAL > or = 60 mg/dl - LO W CARDIOVASCULAR RISK <40 mg/dl - HIGH CARDIOVASCULAR RISK Normal [facility] Comment on above: Performed By: #### TSH #### [facility] [address] [address] [address] Yue Vega LDL CALC NORMAL SEE BELOW Normal [facility] Comment on above: Result Comment: <100 mg/dl OPTIMAL 100 - 129 mg/dl NEAR OR ABOVE OPTIMAL 130 - 159 mg/dl BORDERLINE HIGH 160 - 189 mg/dl HIGH >190 mg/dl VERY HIGH Performed By: #### T SH #### [facility] [address] [address] [address] Yue Vega Triglyceride [Mass/Vol] 98 mg/dL Normal <=150 [facility] Comment on above: Performed By: #### TSH #### [facility] [address] [address] [address] Yue Vega VLDL CALC 19.6 mg/dL Normal [facility] Comment on above: Performed By: #### TSH #### [facility] [address] [address] [address] Yue Vega LIVER PROFILEon 09-26-2022 Albumin [Mass/Vol] 3.8 g/dL Normal 3.4-5.0 [facility] Comment on above: Performed By: #### LIPID, BMP, LIVER ### # [facility] [address] [address] [address] Yue Vega Albumin/Globulin [Mass ratio] 0.9 {ratio} Normal [facility] Comment on above: Performed By: #### LIPID, BMP, LIVER ### # [facility] [address] [place] [address] Dr. Yue Vega ALP [Catalytic activity/Vol] 94 U/L Normal 46-116 [facility] Comment on above: Performed By: #### LIPID, BMP, LIVER ### # [facility] [address] [place] [address] Dr. Yue Vega ALT [Catalytic activity/Vol] 34 U/L Normal 16-63 [facility] Comment on above: Performed By: #### LIPID, BMP, LIVER ### # [facility] [address] [place] [address] Dr. Yue Vega AST [Catalytic activity/Vol] 30 U/L Normal 15-37 [facility] Comment on above: Performed By: #### LIPID, BMP, LIVER ### # [facility] [address] [place] [address] Dr. Yue Vega BILI, CONJUGATED 0.2 mg/dL Normal 0.0-0.2 [facility] Comment on above: Performed By: #### LIPID, BMP, LIVER ### # [facility] [address] [place] [address] Dr. Yue Vega Bilirubin [Mass/Vol] 0.9 mg/dL Normal 0.2-1.0 [facility] Comment on above: Performed By: #### LIPID, BMP, LIVER ### # [facility] [address] [address] [address] Yue Vega Globulin (S) [Mass/Vol] 4.2 g/dL Normal [facility] Comment on above: Performed By: #### LIPID, BMP, LIVER ### # [facility] [address] [address] [address] Yue Vega Protein [Mass/Vol] 8.0 g/dL Normal 6.4-8.2 [facility] Comment on above: Performed By: #### LIPID, BMP, LIVER ### # [facility] [address] [address] [address] Yue Vega MICROALBUMIN, RAND URon 09-15 mALB 16.8 mg/L Normal <=30.0 [facility] Comment on above: Performed By: #### ERUR, UMICRO #### [facility] [address] [place] [address] Dr. Yue Vega PROF CHEM 8 (BAS METB)on Anion gap [Moles/Vol] 12.2 mmol/L Normal [facility] Comment on above: Performed By: #### TSH #### [facility] [address] [place] [address] Dr. Yue Vega Calcium [Mass/Vol] 9.4 mg/dL Normal 8.5-10.1 [facility] Comment on above: Performed By: #### TSH #### [facility] [address] [place] [address] Dr. Yue eVga Chloride [Moles/Vol] 99 mmol/L Normal 98-107 [facility] Comment on above: Performed By: #### TSH #### [facility] [address] [place] [address] Dr. Yue Vega CO2 [Moles/Vol] 32.1 mmol/L Critically high 21.0-32.0 [facility] Comment on above: Performed By: #### TSH #### [facility] [address] [place] [address] Dr. Yue Vega Creatinine [Mass/Vol] 1.19 mg/dL Normal 0.70-1.30 [facility] Comment on above: Performed By: #### TSH #### [facility] [address] [address] [address] Yue Vega EGFR-AF NAURUAN >60 Normal >=60 [facility] Comment on above: Performed By: #### TSH #### [facility] [address] [address] [address] Yue Vega EGFR-NON AF NAURUAN 58 mL/min/1.73m2 Critically low >=60 [facility] Comment on above: Performed By: #### TSH #### [facility] [address] [address] [address] Yue Vega Glucose [Mass/Vol] 158 mg/dL Critically high 74-106 [facility] Comment on above: Performed By: #### TSH #### [facility] [address] [address] [address] Yue Vega Potassium [Moles/Vol] 4.3 mmol/L Normal 3.5-5.1 [facility] Comment on above: Performed By: #### TSH #### [facility] [address] [address] [address] Yue Vega Sodium [Moles/Vol] 139 mmol/L Normal 136-145 [facility] Comment on above: Performed By: #### TSH #### [facility] [address] [address] [address] Yue Vega Urea nitrogen [Mass/Vol] 24.0 mg/dL Critically high 7.0-18.0 [facility] Comment on above: Performed By: #### TSH #### [facility] [address] [address] [address] Yue Vega Urea nitrogen/Creatin ine [Mass ratio] 20.2 mg/mg Normal [facility] Comment on above: Performed By: #### TSH #### [facility] [address] [address] [address] Yue Vega XR wrist LT min 3V*on 2021 XR wrist LT min 3V* [facility] Other XR wrist LT min 3V* [facility] Other XR wrist LT min 3V* [facility] Other XR wrist LT min 3V* EILEEN Mendez [address] [facility] Other XR wrist LT min 3V* XRay Report [facility] Other XR wrist LT min 3V* Signed [facility] Other XR wrist LT min 3V* Patient: Edwin Orourke MR#: [id number] [facility] Other XR wrist LT min 3V* [id number] [facility] Other XR wrist LT min 3V* : 1935 Acct:[id number] [facility] Other XR wrist LT min 3V* Age/Sex: 87 / M ADM Date: 09/05/22 [facility] Other XR wrist LT min 3V* Loc: XDUCLY Room: Type: [facility] Other XR wrist LT min 3V* Attending Dr: Sanaz Campo [facility] Other XR wrist LT min 3V* Copies to: SANAZ CAMPO [facility] Other XR wrist LT min 3V* Ordering Provider: SANAZ CAMPO [facility] Other XR wrist LT min 3V* Date of Service: 09/05/22 [facility] Other XR wrist LT min 3V* XR/XR wrist LT min 3V*: Injury of left wrist, initial encounter [facility] Other XR wrist LT min 3V* LEFT WRIST - 4 views [facility] Other XR wrist LT min 3V* CLINICAL HISTORY: Fall this morning. Now with left wrist pain. [facility] Other XR wrist LT min 3V* COMPARISON: None [facility] Other XR wrist LT min 3V* FINDINGS: [facility] Other XR wrist LT min 3V* No focal soft tissue abnormality. Vascular calcifications. No acute bony process is seen. 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 [facility] Other XR wrist LT min 3V* XR/XR wrist LT min 3V* [facility] Other XR wrist LT min 3V* IMPRESSION: [facility] Other XR wrist LT min 3V* NO ACUTE BONY PROCESS. [facility] Other XR wrist LT min 3V* Impression dictated by: Albert Rene Jr., D.O.09/05/2022 5:57 PM [facility] Other XR wrist LT min 3V* Dictation Location: [place] [address] [facility] Other XR wrist LT min 3V* Transcribed By: MEGAN 09/05/22 [facility] Other XR wrist LT min 3V* Dictated By: Albert Rene Jr, DO 09/05/22 [facility] Other XR wrist LT min 3V* Signed By: [facility] Other XR wrist LT min 3V* 09/05/22 [facility] Other GLYCOHEMOGLOBIN A1Con 2021 ADA RECOMMENDATION SEE BELOW Normal [facility] Comment on above: Result Comment: ADA RECOMMENDED LIMIT 4. 0 - 6.0 ADA THERAPEUTIC TARGET < 7.0 ACTION SUGGESTED > 7.0 Performed By: #### A 1C #### [facility] [address] [address] [address] Yue Vega Glucose [Mass/Vol] 154 mg/dL Normal [facility] Comment on above: Performed By: #### A1C #### [facility] [address] [place], [place] [address] Dr. Yue Vega HbA1c (Bld) [Mass fraction] 7.0 % Critically high 4.5-6.2 [facility] Comment on above: Performed By: #### A1C #### [facility] [id number] Yue Vega Cardiovascular Lab Reporton 05-30-2018 Cardiovascular Lab Report [facility] #: [id number] Physician: Devendra Hood M.D.Medicine Service Date: 05/29/2018Division of Birthdate: 1935Cardiology Room #: 3CD [id number] [facility] [address] [place], [place] [address]Dkfml Fax Cardiovascular Laboratory ReportINDICATION: Edwin Orourke is an 83-year-old man with history ofhypertension, hyperlipidemia, and diabetes. He recently presented to theemergency [facility] in [facility] with typical unstable angina. He thenhad [...] signed informed consent. 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 Tiago's testwas favorable. Access in the left radial artery was obtained usingultrasound guidance and micropuncture technique. A 6-Emirati x 11 cmHydrophilic sheath was left. Verapamil was given through the sheath andheparin was administered intravenously. Bilateral selective coronaryangiography was then performed using 6-Emirati JL4 for engagement of theleft coronary artery and a 6-Emirati JR4 followed by a 6-Emirati ALIREZA catheterfor engagement of the right coronary artery. Catheters were removed.Therapeutic ACT confirmed during the procedure and additional heparin givenas needed. A 6-Emirati XB 3.5 guiding catheter was advanced and [...] 11 atmospheres and post dilated using NCQuantum Forman 2.5 x 8 mm noncompliant balloon inflated [...] 11atmospheres and post dilated using NC Quantum Forman 2.5 x 15 mm noncompliantballoon inflated at 18 atmospheres throughout the length of the stent.Angiography was performed. Intracoronary nitroglycerin was administered.It was decided to deploy an additional stent distal to the previouslydeployed stent. This was a Synergy 2.25 x 12 mm stent, deployed at 11atmospheres and post dilated using NC Quantum Forman 2.5 x 15 mm noncompliantballoon inflated at [...] 05/29/2018/01:20 P/Devendra Flores M.D.Date Trans: 05/30/2018 11:47 A/johnathonoDN_[id number]: Darrin Velasquez D.O. [address] [facility] [address] [facility] [address] Ramon Martines M.D. [address] [facility] [address] Normal [facility] POC GLUCOSE LABon 05-30-2018 Glucose mass conc 121 mg/dL High 70-100 [facility] Comment on above: Performed By: #### [address] ####[facility] [place] [address], [facility] POC GLUCOSE LABon 05-29-2018 Glucose mass conc 126 mg/dL High 70-100 [facility] Comment on above: Performed By: #### [id number] ####[facility] [place] [address], [facility] Glucose mass conc 127 mg/dL High 70-100 [facility] Comment on above: Performed By: #### [address] ####[place] [address] Vital Signs Date Time Vital Sign Value Performing Clinician Facility 10-25-2024 12:00-0500 Body height 177.8 cm Ramon Martines MD Work Phone: [facility] 10-25-2024 12:00-0500 Body temperature 97.5 [degF] Ramon Martines MD Work Phone: [facility] 10-25-2024 12:00-0500 Diastolic blood pressure 52 mm[Hg] Ramon Martines MD Work Phone: [facility] 10-25-2024 12:00-0500 Heart rate 75 /min Ramon Martines MD Work Phone: [facility] 10-25-2024 12:00-0500 Respiratory rate 20 /min Ramon Martines MD Work Phone: [facility] 10-25-2024 12:00-0500 SaO2% (BldA) [Mass fraction] 99 % Ramon Martines MD Work Phone: [facility] 10-25-2024 12:00-0500 Systolic blood pressure 118 mm[Hg] Ramon Martines MD Work Phone: [facility] 08-13-2024 11:04-0400 Body height 177.8 cm Ramon Martines MD Work Phone: [facility] 08-13-2024 11:04-0400 Body temperature 97.11 [degF] Ramon Martines MD Work Phone: [facility] 08-13-2024 11:04-0400 Diastolic blood pressure 52 mm[Hg] Ramon Martines MD Work Phone: [facility] 08-13-2024 11:04-0400 Heart rate 76 /min Ramon Martines MD Work Phone: [facility] 08-13-2024 11:04-0400 Respiratory rate 20 /min Ramon Martines MD Work Phone: [facility] 08-13-2024 11:04-0400 SaO2% (BldA) [Mass fraction] 97 % Ramon Martines MD Work Phone: [facility] 08-13-2024 11:04-0400 Systolic blood pressure 130 mm[Hg] Ramon Martines MD Work Phone: [facility] 06-04-2024 13:35-0400 Body height 177.8 cm Ramon Martines MD Work Phone: [facility] 06-04-2024 13:35-0400 Body temperature 97.81 [degF] Ramon Martines MD Work Phone: [facility] 06-04-2024 13:35-0400 Diastolic blood pressure 52 mm[Hg] Ramon Martines MD Work Phone: [facility] 06-04-2024 13:35-0400 Heart rate 76 /min Ramon Martines MD Work Phone: [facility] 06-04-2024 13:35-0400 Respiratory rate 20 /min Ramon Martines MD Work Phone: [facility] 06-04-2024 13:35-0400 SaO2% (BldA) [Mass fraction] 98 % Ramon Martines MD Work Phone: [facility] 06-04-2024 13:35-0400 Systolic blood pressure 122 mm[Hg] Ramon Martines MD Work Phone: [facility] 05-31-2024 10:44-0400 Blood Pressure Location Deven BUTLER [facility] 05-31-2024 10:44-0400 Body temperature 98.6 [degF] Deven BUTLER [facility] 05-31-2024 10:44-0400 Diastolic blood pressure 71 mm[Hg] Deven BUTLER [facility] 05-31-2024 10:44-0400 Heart rate 62 /min Deven BUTLER [facility] 05-31-2024 10:44-0400 Respiratory rate 16 /min Deven BUTLER [facility] 05-31-2024 10:44-0400 Systolic blood pressure 130 mm[Hg] Deven BUTLER [facility] 12-01-2023 09:23-0500 Blood Pressure Location Deven BUTLER [facility] 12-01-2023 09:23-0500 Diastolic blood pressure 63 mm[Hg] Deven BUTLER [facility] 12-01-2023 09:23-0500 Heart rate 60 /min Deven BUTLER [facility] 12-01-2023 09:23-0500 Respiratory rate 16 /min Deven BUTLER [facility] 12-01-2023 09:23-0500 Systolic blood pressure 111 mm[Hg] Deven BUTLER [facility] 09-05-2022 17:40-0500 Body height 180.34 cm Sanaz Campo Other [facility] Other 09-05-2022 17:40-0500 Body mass index (BMI) [Ratio] 27.89 kg/m2 Sanaz Campo Other [facility] Other 09-05-2022 17:40-0500 Body temperature 97.6 [degF] Sanaz Campo Other [facility] Other 09-05-2022 17:40-0500 Body weight 90.72 kg Sanaz Campo Other [facility] Other 09-05-2022 17:40-0500 Diastolic blood pressure 63 mm[Hg] Sanaz Campo Other [facility] Other 09-05-2022 17:40-0500 Respiratory rate 16 /min Sanaz Campo Other [facility] Other 09-05-2022 17:40-0500 SaO2% (BldA) [Mass fraction] 97 % Sanaz Campo Other [facility] Other 09-05-2022 17:40-0500 Systolic blood pressure 153 mm[Hg] Sanaz Campo Other [facility] Other Encounters Encounter Date Encounter Type Care Provider Facility Start: 11-09-2024 End: 11-11-2024 Refill Ramon Martines MD Work Phone: [facility] Comment on above: Generalized anxiety disorder (CMS/HCC) Start: 11-08-2024 ambulatory LUKAS Wardi ty:[facility] [place] Start: 10-25-2024 End: 10-25-2024 Bamboo flowsheet Ramon Martines MD Work Phone: [facility] Start: 10-25-2024 End: 10-25-2024 Bamboo flowsheet Ramon Martines MD Work Phone: [facility] Start: 10-25-2024 End: 10-25-2024 Office outpatient visit 25 minutes Ramon Martines MD Work Phone: [facility] Comment on above: Non-healing ulcer of buttock, limited to breakdown of skin ([facility]/HCC) (Primary Dx); Type 2 diabetes mellitus with hyperglycemia, without long-term current use of insulin ([facility]); Essential hypertension, benign ([facility]/HCC); Lumbar spondylosis; Chronic diastolic heart failure ([facility]/HCC); Paroxysmal A-fib ([facility]); Stage 3a chronic kidney disease (HCC) ([facility]); Type 2 diabetes mellitus with diabetic chronic kidney disease ([facility]) Start: 10-25-2024 End: 10-25-2024 ambulatory RAMON MARTINES Not Available Start: 10-15-2024 End: 10-15-2024 ambulatory Ranjeet Clarke Facility:[facility] Start: 10-15-2024 End: 10-15-2024 Departed Referred Ranjeet Clarke DO [facility] Path Spec [facility] Start: 10-08-2024 End: 10-08-2024 ambulatory LUKAS SAPP Facility:[facility] Start: 10-08-2024 End: 10-08-2024 Patient encounter procedure LUKAS SAPP [facility] Start: 09-10-2024 End: 09-10-2024 ambulatory Yi X Orzech [facility] Start: 09-10-2024 End: 09-10-2024 Patient encounter procedure Yi X Orzech [facility] Start: 09-02-2024 End: 09-02-2024 ambulatory Soy Turpin MD Facility: [place] Start: 08-16-2024 ambulatory Deven Dan ty: [place] Start: 08-13-2024 End: 08-13-2024 ambulatory Yi X Orzech [facility] Start: 08-13-2024 End: 08-13-2024 Bamboo flowsheet Ramon [...] Dx); Stage 3a chronic kidney disease (HCC) ([facility]/HCC); Type 2 diabetes mellitus with diabetic chronic kidney disease ([facility]/HCC) Start: 08-13-2024 End: 08-13-2024 ambulatory RAMON MARTINES Not Available Start: 07-26-2024 ambulatory Deven BUTLER Facili ty:[facility] Start: 07-19-2024 End: 07-19-2024 ambulatory Deven BUTLER Facility:[facility] Start: 07-19-2024 End: 07-19-2024 Patient encounter procedure Deven BUTLER [facility] Start: 06-21-2024 End: 06-21-2024 ambulatory Deven BUTLER Facility:[facility] [place] Start: 06-21-2024 End: 06-21-2024 Patient encounter procedure Deven BUTLER [facility] Start: 06-14-2024 End: 06-17-2024 Clinisync [...] Result Encounter Ramon Martines MD Work Phone: [facility] External Department Unsolicited Start: 06-04-2024 End: [...] Start: 05-31-2024 End: 05-31-2024 ambulatory Deven BUTLER Facility:[facility] Start: 05-31-2024 End: 05-31-2024 Lab Drop off Deven BUTLER [facility] Start: 05-31-2024 End: 05-31-2024 ambulatory Deven BUTLER Facility:[facility] Start: 05-31-2024 End: 05-31-2024 Patient encounter procedure Deven BUTLER [facility] Start: 05-28-2024 End: 05-28-2024 ambulatory [facility] Start: 04-02-2024 End: 04-02-2024 ambulatory [facility] Start: 01-30-2024 End: 01-30-2024 ambulatory Deven BUTLER Facility:[facility] Start: 01-30-2024 End: 01-30-2024 Patient encounter procedure Deven BUTLER [facility] Start: 12-28-2023 End: 12-28-2023 ambulatory [facility] Start: 12-26-2023 End: 12-26-2023 ambulatory [facility] Start: 12-13-2023 End: 12-13-2023 ambulatory RAMON MARTINES Not Available Start: 12-01-2023 End: 12-01-2023 ambulatory Deven BUTLER Facility:[facility] Start: 12-01-2023 End: 12-01-2023 Patient encounter procedure Deven BUTLER [facility] Start: 11-21-2023 End: 11-21-2023 ambulatory [facility] Start: 11-06-2023 End: 11-06-2023 ambulatory Deven BUTLER Facility:[facility] Start: 10-11-2023 End: 10-11-2023 ambulatory ЕЛЕНА [facility] Start: 10-02-2023 ambulatory [facility] Start: 10-02-2023 End: 10-02-2023 ambulatory [facility] Start: 08-22-2023 End: 08-22-2023 ambulatory [facility] Start: 02-16-2023 End: 02-17-[address] DOCTOR NAGEL Facility: Start: 01-06-2023 End: 01-06-2023 ambulatory MD Ramon Martines Work Phone: [facility] Work Phone: Start: 01-06-2023 End: 01-06-2023 Patient encounter procedure MD Ramon Martines Work Phone: [facility] Work Phone: Start: 12-26-2022 End: 12-26-2022 ambulatory GONZÁLEZ HADDAD . Facility:[facility] Start: 12-21-2022 End: 12-22-2022 ambulatory SUZI MURRAY Facility:[facility] Start: 12-06-2022 End: 12-31-[address] RAMON MARTINES Facility:[facility] Start: 09-26-2022 End: 09-27-[address] RAMON MARTINES Facility:[facility] Start: 09-05-2022 End: 09-05-2022 Patient encounter procedure [employer] PROFESSOR-C Sanaz Campo Work Phone: [facility] Start: 09-05-2022 End: 09-05-2022 ambulatory [employer] PROFESSOR-C Sanaz Campo Work Phone: [facility] Work Phone: Start: 09-05-2022 Office outpatient vi sit 15 minutes Sanaz Campo [facility] Start: 04-19-2022 End: 04-20-[address] RAMON MARTINES Facility: Start: 05-29-2018 End: 05-30-2018 Patient encounter PROVIDER UNKNOWN Facility:[facility] Start: 05-28-2018 End: 05-29-2018 Patient encounter DEFAULT PHYSICIAN Facility:[facility] Start: 05-20-2018 End: 05-21-2018 Patient encounter DEFAULT PHYSICIAN Facility:[facility] Procedures Date Procedure Procedure Detail Performing Clinician Start: 06-14-2024 Bacteria identified in Urine by Culture Generic External Data Provider Start: 06-04-2024 ALL BASIC METABOLIC PANEL Ramon Martines MD Work Phone: Start: 01-30-2024 Cystoscopy Deven MARTINEZ Start: 01-30-2024 Urodynamic studies Jyotsna BUTLER Start: 01-06-2023 MRI of head MD Ramon chapman Work Phone: Start: 09-05-2022 Plain X-ray of left wrist [employer] PROFESSOR-C Sanaz Campo Work Phone: Appendectomy Deven BUTLER Arthroplasty of knee Deven BUTLER Extraction of cataract Mayra BUTLER Implantation of radioactive seed into prostate Deven BUTLER Placement of stent i n cardiac conduit Deven BUTLER Plan of Treatment Date Care Activity Detail Author Start: 08-13-2025 Medicare Annual Wellness (AWV) Medicare Annual Wellness (AWV) [facility] Start: 07-17-2025 Glaucoma screening Diabetes: R etinopathy Screening [facility] Start: 02-14-2025 End: 02-14-2025 Patient encounter procedure 02/14/2025 11:00 AM EDT Office Visit [facility] [address] [place] [phone] Ramon Martines MD [address] [place] [phone] [facility] Start: 12-21-2024 Urine screening for protein Diabetes: Urine Protein Screening [facility] Start: 12-05-2024 Hemoglobin A1c measurement Diabetes: Hemoglobin A1C [facility] Start: 10-25-2024 End: 10-25-2024 Patient encounter procedure 10/25/2024 11:45 AM EST Office Visit [facility] [address] [place] [phone] Ramon Martines MD [address] [place] [phone] [facility] Comment on above: Arrived Start: 10-15-2024 Bacteria identified in Urine by Culture Urine Culture [facility] Start: 10-15-2024 Urine culture [facility] Start: 08-13-2024 End: 08-13-2024 Patient encounter procedure [facility] Comment on above: Arrived Start: 07-31-2024 End: 07-31-2024 Patient encounter procedure 07/31/2024 1:00 PM EDT Office Visit [facility] [address] [place] [phone] Cher ChurchillJOHANA-DECK MATE [address] [place] [address] [facility] Start: 06-23-2024 Hemoglobin A1c measurement Diabetes: Hemoglobin A1C [facility] Start: 06-16-2024 Influenza vaccination Influenza Vacc ine (#1) [facility] Start: 06-04-2024 End: 06-04-2025 Basic metabolic 1998 panel - Serum or Plasma Basic metabolic panel Lab Routine Essential hypertension, benign ([facility]/HCC) Expected: 06/04/2024 (Approximate), Expires: 06/04/2025 [facility] Comment on above: Expected: 06/04/2024 (Approximate), Expires: 06/04/2025 Start: 06-04-2024 End: 06-04-2025 Hemoglobin A1c/Hemoglobin.total in Blood Hemoglobin A1c Lab Routine Type 2 diabetes mellitus with hyperglycemia, without long-term current use of insulin ([facility]) Expected: 06/04/2024 (Approximate), Expires: 06/04/2025 [facility] Work Phone: Comment on above: Expected: 06/04/2024 (Approximate), Expires: 06/04/2025 Start: 06-04-2024 End: 06-04-2024 Patient encounter procedure 06/04/2024 1:30 PM EDT [facility] [address] [place] [phone] Ramon Martines MD [address] [place] [phone] [facility]rived [facility] Comment on above: Arrived Start: 03-23-2024 Hemoglobin A1c measurement Diabetes: Hemoglobin A1C [facility] Start: 1947 Glaucoma screening Diabetes: R etinopathy Screening [facility] Start: 1943 Pneumococcal Vaccine : 65+ Years (1 of 2 - PCV) Pneumococcal Vaccine: 65+ Years (1 of 2 - PCV) [facility] Start: 1937 Medicare Annual Wellness (AWV) Medicare Annual Wellness (AWV) [facility] Bacteria identified in Urine by Culture URINE CULTURE, ROUTINE Lab Routine 06/14/2024 12:55 PM EDT [facility] Payers Date Payer Category Payer Self-pay 2021 Private Health Insurance [employer] [id number] 2021 Unknown 2001 Medicare [id number] 1959 Medicare [id number] 1959 Unknown [id number] 1937 Unknown [id number] 1937 Unknown [id number] 1937 Unknown [id number] 2.16.840.1.263019.3.579.2. 593 1937 Unknown [id number] 2.16.840.1.716622.3.579.2. 593 1937 Unknown [id number] 2.16.840.1.676582.3.579.2. 593 1937 Unknown [id number] 2.16.840.1.508646.3.579.2. 593 1937 Unknown [id number] 2.16.840.1.400467.3.579.2. 727 1937 Unknown [id number] 2.16.840.1.061914.3.579.2. 727 1937 Unknown [id number] 2.16.840.1.769610.3.579.2. 727 1937 Unknown [id number] 2.16840.1.066239.3.579.2. 727 1937 Unknown [id number] 2.16840.1.789860.3.579.2. 727 1937 Unknown [id number] 2.16840.1.147843.3.579.2. 727 1937 Unknown [id number] 2.16840.1.754874.3.579.2. 196 1937 Unknown [id number] 2.16840.1.996973.3.579.2. 1259 1937 Unknown [id number] 2.16840.1.457836.3.579.2. 1259 1937 Unknown [id number] 2.16.840.1.197504.3.579.2. 1259 1937 Unknown [id number] 2.16.840.1.740804.3.579.2. 1259 1937 Unknown [id number] 2.16.840.1.242365.3.579.2. 727 1937 Unknown [id number] 2.16.840.1.676576.3.579.2. 727 1937 Unknown [id number] 2.16.840.1.285358.3.579.2. 727 1937 Unknown [id number] 2.16.840.1.249061.3.579.2. 727 1937 Unknown [id number] 2.16.840.1.385478.3.579.2. 727 1937 Unknown [id number] 2.16.840.1.813940.3.579.2. 727 1937 Unknown [id number] 2.16.840.1.802370.3.579.2. 727 1937 Unknown [id number] 2.16.840.1.580426.3.579.2. 727 Medicare [id number] Unknown [id number] 2.16.840.1.500300.3.579.2. 531 Social History Date Type Detail Facility [facility] Work Phone: Start: 1935 Sex Assigned At Male F [facility] Start: 06-04-2024 End: 08-13-[address] [facility] Start: 03-02-2020 End: 07-14-2023 Tobacco smoking status Never smoked tobacco (finding) [facility] Start: 06-04-2024 End: 10-25-2024 Alcoholic beverage intake Lifetime non-drinker (finding) [facility] Start: 06-04-2024 End: 08-13-2024 History of Social function [facility] Start: 1935 Sex assigned at Not on file [facility] Work Phone: Start: 10-16-2024 Sex Patient sex un known (finding) [facility] Medical Equipment Procedure Code Equipment Code Equipment Origin al Text Equipment Identifier Dates 1 each by In Vit ro route Daily [id number] Start: 12-13-2023 Functional Status Date Assessment Result Facility 05-31-2024 Functional Status N/A [facility] 01-30-2024 Functional Status N/A [facility] 12-01-2023 Functional Status N/A [facility] Clinical Notes 09-05-2022 to 10-25-2024 Ramon Martines MD - 10/25/2024 2:24 PM Raza Martines MD - 10/25/2024 2:24 PM Raza Martines MD - 10/25/2024 2:24 PM Raza Martines MD - 10/25/2024 2:24 PM EST Note Date & Type Note Facility 10-25-2024 History of Present illness Narrative Associated Problem(s): Stage 3a chronic kidney disease (HCC) ([facility]) Monitor labs Associated Problem(s): Type 2 diabetes mellitus with hyperglycemia, without long-term current use of insulin ([facility]) Not checking BS and due for A1C. Associated Problem(s): Paroxysmal A-fib ([facility]) Remains in NSR and monitor. Associated Problem(s): Non-healing ulcer of buttock, limited to breakdown of skin ([facility]) Ulcer for months and not healing. Add wound care from Home Health. Associated Problem(s): Lumbar spondylosis Pain much improved and monitor. Start PT for weakness. Associated Problem(s): Essential hypertension, benign ([facility]/HCC) BP controlled and monitor PRN. Associated Problem(s): Chronic diastolic heart failure ([facility]) No edema and continue medication. Elevate legs [...] Addressed This Visit Chronic diastolic heart failure ([facility]/HCC) No edema and continue medication. Elevate legs PRN. Essential hypertension, benign ([facility]/HCC) BP controlled and monitor PRN. Lumbar spondylosis Pain much improved and monitor. Start PT for weakness. Paroxysmal A-fib ([facility]) Remains in NSR and monitor. Type 2 diabetes mellitus with hyperglycemia, without long-term current use of insulin ([facility]) Not checking BS and due for A1C. Stage 3a chronic kidney disease (HCC) (CMS/HCC) Monitor labs Non-healing ulcer of buttock, limited to breakdown of skin ([facility]) - Primary Ulcer for months and not healing. Add wound care from Home Health. documented in this encounter [facility] 08-13-2024 History of Present illness Narrative Associated Problem(s): Stage 3a chronic kidney disease (HCC) ([facility]) Renal function stable. Associated Problem(s): Medicare annual [...] Visit Stage 3a chronic kidney disease (HCC) ([facility]) Renal function stable. Medicare annual wellness visit, subsequent - Primary Reviewed labs. Discussed proper diet and regular aerobic exercise. Need aerobic exercise 5-6 days a week for 30 minutes at a time. Smaller portions and limit total calories. Tetanus every 10 years. Advised not to smoke. Discussed daily Aspirin therapy. documented in this encounter [facility] 06-04-2024 History of Present illness Narrative Associated Problem(s): Type 2 diabetes mellitus with hyperglycemia, without long-term current use of insulin ([facility]) Not checking BS and due for A1C. Associated Problem(s): Major depressive disorder, recurrent episode, moderate (HCC) ([facility]) Symptoms improved with celexa and continue. Associated [...] 8.6 MG capsule documented in this encounter [facility] 05-31-2024 Hospital Discharge instructions Patient Education [...] bag. Secure the leg bag according to clinical account executive's instructions. This may be above or below [...] on each side. Do this in a rdofs-wa-xday direction. 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 Always make sure there are no twists, [...] provider. Document Revised: 06/02/2022 Document Reviewed: 06/02/2022 [employer] Patient Education 2022 [employer]. Follow Up Care 01/30/2024 11:29:46 With:MÓNICA STEPHENSON, Deven Zimmerman, URL Address: [address] [place] [id number]- When: Unknown [facility] 05-31-2024 Note Patient Education Urology [...] ? Secure the leg bag according to clinical account executive's instructions. This may be above or below [...] on each side. Do this in a qbmbw-sc-zffw direction. ? If you are male: ? [...] Clean the drainage bag according to the clinical account executive's instructions or as told by your health [...] to prevent ba (more content not included)... [facility] 04-02-2024 Note [place] Electrophysiology Note Reason for visit: bradycardia 04/02/24 [...] discontinued due to having ER visit with [facility] for complaints of dizziness and was [...] ECG 05/04/2018: Atrial fibrillation, possible old septal MO. ECG 05/28/2018 showed sinus rhythm with 1st degree AV block and PAC. Possible anteroseptal MO. ECG today 03/21/2019: sinus rhythm with 1st [...] morning. oxyCODONE (Roxicod (more content not included)... [facility] 01-30-2024 Evaluation + Plan note [place] [...] Date:05/31/2024 11:00:00 AM Scheduled Provider:Deven BUTLER MD Location:[facility] Appointment Type:URO Office Visit [facility]04-16-2024 Hospital Discharge instructions Patient Education [...] Up Care 01/04/2024 13:38:25 With:Deven MÓNICA Address: [address] [place] [address] [place] [address] Business (1) When:05/31/2024 11:24:06 [facility]04-16-2024 Note [id number] 01-30-2024 NoteCustom Cystoscopy ? Voiding after [...] if you have a fever over 100 degrees.[facility] 12-26-2023 NoteUT Electrophysiology Note Reason [...] discontinued due to having ER visit with [facility] for complaints of dizziness and was [...] ECG 05/04/2018: Atrial fibrillation, possible old septal MO. ECG 05/28/2018 showed sinus rhythm with 1st degree AV block and PAC. Possible anteroseptal MO. ECG today 03/21/2019: sinus rhythm with 1st [...] of Systems Constitutional: Pos (more content not included)...[facility]02-16-2024 Hospital Discharge instructions Patient Education 12/01/2023 09:58:03 [...] nerve stimulation). ?For women, using a medical assistant float to prevent urine leaks. This is a [...] right after experiencing incontinence. General instructions Take dhsz-pwf-gizwebl and prescription medicines only as told by [...] important. Where to find more information National [place] of Diabetes and Digestive and Kidney Diseases: www.niddk.nih.gov [employer]: www.urologyhealth.org Contact a health care [...] provider. Document Revised: 05/07/2021 Document Reviewed: 05/07/2021 [employer] Patient Education 2022 [employer]. Follow Up Care 08/25/2023 10:52:16 With:MÓNICA STEPHENSON, Deven Zimmerman, URL Address: [address] [place] [id number]- When: Unknown [facility] 12-27-2023 NoteStable s/p Dual chamber [facility]Un[facility] NoteStable s/p Dual chamber PPMUnEast [facility]12-27-2023 NotePt presents for 1 week wound check s/p recent [employer] dual PPM implant for SSS/ bradycardia Incision site well approximated, healing well without s/s of infectionUnEast [facility] Hospital12-27-2023 NoteUTP CARDIOLOGY PROGRESS NOTE HPI: Edwin [...] PROCEDURE: 10/02/23 PERFORMING PHYSICIAN: Dr. Mike Hilario CARDIAC CATH LAB TECHNOLOGIST: Dr Lana Powell CONSENT: Patient LOCATION: EP Lab PROCEDURE PERFORMED: 1. Implantation of pacemaker ([employer]) 2. Ultrasound guided venous access INDICATIONS: 1. Sinus node dysfunction. 2. Bradycardia No echocardiogram results found for the past 12 months Assessment/Plan: Cardiac pacemaker in situ Pt presents for 1 week wound check s/p recent [employer] dual PPM implant for SSS/ bradycardia Incision site well approximated, healing well without s/s of infection Sinus node dysfunction (CMS/HCC) Stable s/p Dual chamber PPM Sinus bradycardia Stable s/p Dual chamber PPM RTC 1 month with device repUnEast Liverpool [facility] Hospital12-18-2023 Note DUAL CHAMBER PACEMAKER IMPLANT PROCEDURE NOTE DATE OF PROCEDURE: 10/02/23 PERFORMING PHYSICIAN: Dr. Mike Hilario CARDIAC CATH LAB TECHNOLOGIST: Dr Lana Powell CONSENT: Patient LOCATION: EP Lab PROCEDURE PERFORMED: 1. Implantation of pacemaker ([employer]) 2. Ultrasound guided venous access INDICATIONS: [...] discontinued due to having ER visit with [facility] for complaints of dizziness and was [...] using modified seldinger technique using a 5 Emirati micro-puncture needle on two occasions and 0.35 [...] for the device above the muscle. 6 Emirati Safesheaths were placed over the wire. An active fixation [employer] pacing lead was then delivered through the 6Fsheath to the right ventricle. After confirmation of lead position on orthogonal views (GRAVES and KOREAN) to confirm septal position, the screw was activated, and the lead was placed in the right ventricular mid cavity towards the septum. After confirmation of good sensing parameters, injury pattern and pacing thresholds, 10V pacing was done and no diaphragmatic stimulation was noted. It was then secured in the pocket using three 1-0 Silk sutures. Then an active fixation [employer] lead was delivered through the 6Fsheath to the right atrial appendage. After confirmation of lead position on orthogonal views (GRAVES and KOREAN), the screw was activated. Good sensing parameters, [...] 5. No driving for (more content not included)...[facility]12-18-2023 NotePatient: Edwin Orourke Procedure Information Date/Time: 10/02/23 1230 Procedure: Pacemaker DC new Location: [facility] SANDBLASTER STONE 1 EP / [facility] (Cath) Providers: Mike Hilario MD Clinical information reviewed: Allergies Meds Physical Exam Airway Mallampati: II TM distance: >3 FB Neck ROM: full Cardiovascular Dental Pulmonary Abdominal Anesthesia Plan ASA 2 CSE Anesthetic plan and risks discussed with patient. Use of blood products discussed with patient who. Additional Equipment RequestsUnEast Liverpool City Hospital11-07-2023 Note [place] Electrophysiology Note Reason for visit: bradycardia Date of Telehealth Visit: 08/22/23 The patient was notified that using 3rd libertarian telecommunication application (e.g., [employer]) is not HIPPA compliant and may carry some privacy risks. Yes The visit was conducted opek-wd-ktqk with the use of audio and video [...] discontinued due to having ER visit with [facility] for complaints of dizziness and was [...] ECG 05/04/2018: Atrial fibrillation, possible old septal MO. ECG 05/28/2018 showed sinus rhythm with 1st degree AV block and PAC. Possible anteroseptal MO. ECG today 03/21/2019: sinus rhythm with 1st [...] ROS: Cardio Basic Cardiovascular (more content not included)...[facility] 09-05-2022 Evaluation note* Encounter Date Diagnosis Assessment [...] care office for follow up on Monday [place] Other Evaluation + Plan note No data available for this section [facility] evaluation + Plan note Future Appointments Appointment Date:06/21/2024 11:00:00 AM Scheduled Provider: Location:[facility] Appointment Type:URO Nurse Visit [facility] evaluation + Plan note Future Appointments Appointment Date:06/21/2024 11:00:00 AM Scheduled Provider: Location:[facility] Appointment Type:URO Nurse Visit Diagnostic Tests Pending * Urine Culture 05/31/24 [facility] evaluation + Plan note Future Appointments Appointment Date:07/19/2024 11:00:00 AM Scheduled Provider: Location:[facility] Appointment Type:URO Nurse Visit [facility] evaluation + Plan note Future Appointments Appointment Date:08/16/2024 11:00:00 AM Scheduled Provider: Location:[facility] Appointment Type:URO Nurse Visit [facility] evaluation + Plan note Future Appointments Appointment Date:09/10/2024 11:00:00 AM Scheduled Provider: Location:[facility] Appointment Type:URO Nurse Visit [facility] evaluation + Plan note Future Appointments Appointment Date:10/08/2024 11:40:00 AM Scheduled Provider:LUKAS SAPP PA-C Location:[facility] Appointment Type:URO Office Visit [facility] evaluation + Plan note Future Appointments Appointment Date:11/08/2024 11:20:00 AM Scheduled Provider:LUKAS SAPP PA-C Location:[facility] Appointment Type:URO Office Visit [facility] evaluation noteNo assessment information available [facility] Work Phone: evaluation note* Diagnosis Type 2 diabetes mellitus with hyperglycemia, without long-term current use of insulin (CMS/HCC)- Primary Essential hypertension, benign (CMS/HCC) Essential hypertension, benign Lumbar spondylosis Lumbosacral spondylosis without myelopathy Chronic diastolic heart failure (CMS/HCC) Chronic diastolic heart failure Paroxysmal A-fib ([facility]) Encounter for long-term (current) use of medications Encounter for long-term (current) use of other medications Dyslipidemia ([facility]) Other and unspecified hyperlipidemia 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 ([facility]) Type 2 diabetes mellitus with hyperglycemia, without long-term current use of insulin ([facility])- Primary Essential hypertension, benign ([facility]) Essential hypertension, benign Encounter for long-term (current) use of medications Encounter for long-term (current) use of other medications Chronic constipation Unspecified constipation Lumbar spondylosis Lumbosacral spondylosis without myelopathy Generalized anxiety disorder ([facility]) Generalized anxiety disorder Chronic diastolic heart failure ([facility]) Chronic diastolic heart failure Type 2 diabetes mellitus with diabetic chronic kidney disease ([facility]) Chronic kidney disease, stage 2 (mild) Medicare annual wellness visit, subsequent- Primary Stage 3a chronic kidney disease (HCC) ([facility]) Type 2 diabetes mellitus with diabetic chronic kidney disease ([facility]) documented in this encounter [facility]* Diagnosis Type 2 diabetes mellitus with hyperglycemia, without long-term current use of insulin ([facility])- Primary Essential hypertension, benign ([facility]) Essential hypertension, benign Encounter for long-term (current) use of medications Encounter for long-term (current) use of other medications Chronic constipation Unspecified constipation Lumbar spondylosis Lumbosacral spondylosis without myelopathy Generalized anxiety disorder ([facility]) Generalized anxiety disorder Chronic diastolic heart failure ([facility]) Chronic diastolic heart failure Type 2 diabetes mellitus with diabetic chronic kidney disease (HCC) ([facility] Chronic kidney disease, stage 2 (mild) documented in this encounter [facility]* Diagnosis Type 2 diabetes mellitus with hyperglycemia, without long-term current use of insulin ([facility])- Primary Essential hypertension, benign ([facility]) Essential hypertension, benign Lumbar spondylosis Lumbosacral spondylosis without myelopathy Chronic diastolic heart failure ([facility]/HCC) Chronic diastolic heart failure Paroxysmal A-fib ([facility]) Encounter for long-term (current) use of medications Encounter for long-term (current) use of other medications Dyslipidemia ([facility]) Other and unspecified hyperlipidemia 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 ([facility]) Type 2 diabetes mellitus with hyperglycemia, without long-term current use of insulin ([facility])- Primary Essential hypertension, benign ([facility]) Essential hypertension, benign Encounter for long-term (current) use of medications Encounter for long-term (current) use of other medications Chronic constipation Unspecified constipation Lumbar spondylosis Lumbosacral spondylosis without myelopathy Generalized anxiety disorder ([facility] Generalized anxiety disorder Chronic diastolic heart failure ([facility]) Chronic diastolic heart failure Type 2 diabetes mellitus with diabetic chronic kidney disease ([facility]) Chronic kidney disease, stage 2 (mild) Medicare annual wellness visit, subsequent- Primary Stage 3a chronic kidney disease (HCC) ([facility]) Type 2 diabetes mellitus with diabetic chronic kidney disease ([facility]) Non-healing ulcer of buttock, limited to breakdown of skin ([facility])- Primary Type 2 diabetes mellitus with hyperglycemia, without long-term current use of insulin ([facility]) Essential hypertension, benign ([facility]) Essential hypertension, benign Lumbar spondylosis Lumbosacral spondylosis without myelopathy Chronic diastolic heart failure ([facility]) Chronic diastolic heart failure Paroxysmal A-fib ([facility]) Stage 3a chronic kidney disease (HCC) ([facility]) Type 2 diabetes mellitus with diabetic chronic kidney disease ([facility]) documented in this encounter [facility]* Diagnosis Type 2 diabetes mellitus with hyperglycemia, without long-term current use of insulin ([facility])- Primary Essential hypertension, benign ([facility]) Essential hypertension, benign Lumbar spondylosis Lumbosacral spondylosis without myelopathy Chronic diastolic heart failure ([facility]) Chronic diastolic heart failure Paroxysmal A-fib ([facility]) Encounter for long-term (current) use of medications Encounter for long-term (current) use of other medications Dyslipidemia ([facility]) Other and unspecified hyperlipidemia 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 ([facility]) Type 2 diabetes mellitus with hyperglycemia, without long-term current use of insulin ([facility])- Primary Essential hypertension, benign ([facility]) Essential hypertension, benign Encounter for long-term (current) use of medications Encounter for long-term (current) use of other medications Chronic constipation Unspecified constipation Lumbar spondylosis Lumbosacral spondylosis without myelopathy Generalized anxiety disorder ([facility]) Generalized anxiety disorder Chronic diastolic heart failure ([facility]) Chronic diastolic heart failure Type 2 diabetes mellitus with diabetic chronic kidney disease ([facility]) Chronic kidney disease, stage 2 (mild) Medicare annual wellness visit, subsequent- Primary Stage 3a chronic kidney disease (HCC) ([facility]) Type 2 diabetes mellitus with diabetic chronic kidney disease ([facility]) Non-healing ulcer of buttock, limited to breakdown of skin ([facility])- Primary Type 2 diabetes mellitus with hyperglycemia, without long-term current use of insulin ([facility]) Essential hypertension, benign ([facility]) Essential hypertension, benign Lumbar spondylosis Lumbosacral spondylosis without myelopathy Chronic diastolic heart failure ([facility]) Chronic diastolic heart failure Paroxysmal A-fib ([facility]) Stage 3a chronic kidney disease (HCC) ([facility]) Type 2 diabetes mellitus with diabetic chronic kidney disease ([facility]) Generalized anxiety disorder [place] Generalized anxiety disorder documented in this encounter [facility] Narrative - Reported* Type Description Date Medical History diabetes mallitus Medical History high blood pressure Medical History high cholesterol Surgical History b/l knee 1999 [place] Other Hospital Discharge instructions No data available for this section [facility] Progress note No data available for this section [facility] Summary Purpose Family History Relationship [...] and content) DATE CREATED AUTHOR 06/21/2018 [facility] DATE CREATED AUTHOR AUTHOR'S ORGANIZ ATION 02/23/2023 [facility] DATE CREATED AUTHOR AUTHOR'S ORGANIZ ATION 05/30/2024 [facility] DATE CREATED AUTHOR AUTHOR'S ORGANIZ ATION 06/03/2024 [facility] DATE CREATED AUTHOR AUTHOR'S ORGANIZ ATION 06/23/2024 [facility] DATE CREATED AUTHOR AUTHOR'S ORGANIZ ATION 09/07/2024 [facility] DATE CREATED AUTHOR AUTHOR'S ORGANIZ ATION 10/17/2024 [facility] DATE CREATED AUTHOR AUTHOR'S ORGANIZ ATION 10/30/2024 [facility] DATE CREATED AUTHOR AUTHOR'S ORGANIZ ATION 11/07/2024 [facility] Care Teams (unrecognized sec tion and content) Team Status: Inactive Member Role Status Dates ISAI Davis Attending Provider Active Team Status: Active Member Role Status Dates Ramon Martines MD Primary Care Provider Active Team Status: Inactive Member Role Status Dates Jose Eduardo Murray DO Attending Provider Active Ramon Martines MD Primary Care Provider Active Supervisor Functional Testing Relationship Specialty Start Date End Date Ramon Martines MD [address] [place] [phone] PCP - General Family Medicine 12/13/23 Supervisor Functional Testing Relationship Specialty Start Date End Date Ramon Martines MD [address] [place] [phone] PCP - General Family Medicine 12/13/23 Supervisor Functional Testing Relationship Specialty Start Date End Date Ramon Martines MD [address] [place] [phone] PCP - General Family Medicine 12/13/23 Supervisor Functional Testing Relationship Specialty Start Date End Date Ramon Martines MD [address] [place] [phone] PCP - General Family Medicine 12/13/23 Supervisor Functional Testing Relationship Specialty Start Date End Date Ramon Martines MD [address] [place] [phone] PCP - General Family Medicine 12/13/23 Team Status: Inactive Member Role Status Dates Ranjeet Clarke DO Attending Provider Active S tart: October 15, 2024 End: October 15, 2024 Supervisor Functional Testing Relationship Specialty Start Date End Date Ramon Martines MD [address] [place] [phone] PCP - General Family Medicine 12/13/23 Supervisor Functional Testing Relationship Specialty Start Date End Date Ramon Martines MD [address] [place] [phone] PCP - General Family Medicine 12/13/23 Supervisor Functional Testing Relationship Specialty Start Date End Date Ramon Martines MD [address] [place] [phone] PCP - General Family Medicine 12/13/23 Goals [...] Hospice f/up Reason Comments Follow-up Documentation for [facility] heat. Reason Comments Med [...] BE BASED ON THE PRIMARY CLINICAL RECORDS. [facility] [employer] [facility]. provides no warranty or guarantee of the accuracy or completeness of information in this document.
[2024-11-17] MEDS: ATORVASTATIN CALCIUM 10 MG TABLET PO (21:10)
[2024-11-18] VITALS (21 sets, daily range): BP systolic 122–165; BP diastolic 67–78; PULSE 75–91; TEMP 36.8–37; O2SAT 90–95
[2024-11-18] MEDS: ONDANSETRON PF 4 MG/2 ML VIAL IV ×3 (00:02→14:13)
[2024-11-18] MEDS: 0.9 % SODIUM CHLORIDE 1,000 ML 100 ML IV (08:26)
[2024-11-18] MEDS: ENOXAPARIN SODIUM 40 MG/0.4 ML SYRINGE SUBQ (08:29)
[2024-11-18] MEDS: CITALOPRAM HYDROBROMIDE 20 MG TABLET 10 MG PO (08:33)
[2024-11-18] MEDS: OXYBUTYNIN CHLORIDE 5 MG TAB XL 15 MG PO (08:33)
[2024-11-18] MEDS: ISOSORBIDE MONONITRATE 60 MG TAB.ER.24H PO (08:33)
[2024-11-18] MEDS: ZINC GLUCONATE 50 MG TABLET PO (08:33)
[2024-11-18] MEDS: LISINOPRIL 20 MG TABLET PO (08:33)
[2024-11-18] MEDS: METFORMIN HCL 500 MG TABLET PO (08:33)
[2024-11-18] MEDS: VITS A,C,E/LUTEIN/MINERALS 1 TABLET 2 TAB PO (08:33)
[2024-11-18] MEDS: HYDROCHLOROTHIAZIDE 25 MG TABLET PO (08:34)
[2024-11-18] MEDS: TAMSULOSIN HCL 0.4 MG CAPSULE 0.8 MG PO (08:34)
[2024-11-18] MEDS: DONEPEZIL HCL 10 MG TABLET PO (08:34)
[2024-11-18] MEDS: ASPIRIN 81 MG TABLET.DR PO (08:34)
[2024-11-18] MEDS: NYSTATIN 15 GM POWDER 1 APPLIC TOPICAL ×2 (08:36→20:52)
[2024-11-18] MEDS: LATANOPROST 0.005% 2.5 ML BOTTLE 1 DROP OP (08:37)
--- NOTE | 2024-11-18 08:46 | P.PN_ITS ---
Progress Note: Subjective Subjective Interval history: Patient resting comfortably in the chair this morning. 2 friends are at bedside. He denies any current complaints. No fevers or chills, no n/v/d. Exam Narrative Exam Narrative: General: Patient is alert, and oriented to person, place and time with normal affect, proper hygiene Skin: no visible rashes, or ulcers Head: atraumatic, acephalic Eyes: PERRLA, no nystagmus present, conjunctiva clear, no scleral icterus Ears: normal gross auditory acuity Heart: Normal rate and rhythm, no murmurs/rubs/gallops Lungs: no audible wheezes, crackles and normal breath sounds all lung alvarez Abdomen: Normal audible bowel sounds, no distension, No palpable masses, no organomegaly, no rebound/guarding/ or rigidity Musculoskeletal: no swelling bilateral lower extremities Neuro: CN II-X grossly intact Constitutional Vital Signs, click to edit/add: Last Vital Signs Temp 98.5 F 11/18/24 07:44 Pulse 79 11/18/24 08:00 Resp 18 11/18/24 07:44 BP 148/74 H 11/18/24 07:44 Pulse Ox 90 L 11/18/24 07:44 O2 Del Method Room Air 11/18/24 07:44 Progress Note: A&P Assessment and Plan (1) Urinary tract infection: Assessment and Plan: Continue Cipro, awaiting culture Qualifiers: Encounter type: initial encounter Indwelling urinary catheter type: indwelling urethral catheter Urinary tract infection type: catheter-associated UTI Qualified Code(s): T83.511A - Infection and inflammatory reaction due to indwelling urethral catheter, initial encounter; N39.0 - Urinary tract infection, site not specified (2) Sepsis: Assessment and Plan: due to #1, sepsis has improved. WBC's 14.5 down from 17.8 Qualifiers: Sepsis acute organ dysfunction status: without acute organ dysfunction Sepsis type: sepsis due to unspecified organism Qualified Code(s): A41.9 - Sepsis, unspecified organism (3) Dehydration: Assessment and Plan: stop fluids today, appears euvolemic (4) Acute kidney injury: Assessment and Plan: Cr. 1.21 down from 1.48 (5) Blank catheter in place: Assessment and Plan: monitor I&O's (6) Type 2 diabetes mellitus with hyperglycemia: Assessment and Plan: continue SSI, metformin, Qualifiers: Diabetes mellitus adjunct faculty for medical terminology insulin use: without adjunct faculty for medical terminology use Qualified Code(s): E11.65 - Type 2 diabetes mellitus with hyperglycemia (7) Benign essential hypertension: Assessment and Plan: stable. continue home meds (8) Paroxysmal atrial fibrillation: Assessment and Plan: monitor (9) Chronic heart failure with preserved ejection fraction (HFpEF): Assessment and Plan: no signs of acute HF, stop IV fluids (10) CAD (coronary artery disease), [place] coronary artery: Assessment and Plan: continue statin and aspirin Qualifiers: Associated angina: without angina [place] vs. transplanted heart: [place] heart Qualified Code(s): I25.10 - Atherosclerotic heart disease of [place] coronary artery without angina pectoris (11) Senile dementia: Assessment and Plan: continue aricept (12) Lumbar spondylosis: Plan Patient is a full code continue Lovenox for DVT prophylaxis Patient is inpatient status and will require 1-2 more days of hospital necessary care Urinary Catheter Management Urinary Catheter Management Urethral: Cath placed during this visit: no
--- NOTE | 2024-11-18 09:17 | CM.NOTE ---
Important Message From Medicare discussed with pt, pt verbalizes understanding and signs paper. Original given to pt and copy placed in pt's chart.
--- NOTE | 2024-11-18 09:25 | SWNOTE1 ---
SW received a call and pt is current with [facility].
[2024-11-18] MEDS: CIPROFLOXACIN 400 MG/200 ML D5W PREMIX 200 MG IV ×2 (10:03→23:23)
--- NOTE | 2024-11-18 10:27 | SWNOTE1 ---
SW received message from Case Management and pt has meals on wheels as well.
--- NOTE | 2024-11-18 10:31 | SWNOTE1 ---
SW reviewed therapy notes and SNF recommended. SW to speak with pt and .
--- NOTE | 2024-11-18 11:58 | CM.NOTE ---
Rounds made with Dr. Little. Pt c/o nausea this morning. No discharge today. Awaiting culture results. Pt does have [facility] and Me[facility] on Wheels at this time, PT recommends skilled therapy at discharge. Pt will speak with his about skilled therapy. SW updated and will talk with pt.
--- NOTE | 2024-11-18 13:41 | SWNOTE1 ---
YOJANA met with pt in room. Pt was sitting up in chair with food in front of him. He voiced he does not really want this. SW offered to order something else for pt. Pt stated he is not sure what he wants. He stated ever since he has had these belly issues, nothing really sounds good. He stated he takes a bite or 2, then doesn't want it. SW and pt reviewed the menu. Pt may want some sliced bananas. Nurse came in at this time. Nurse assisted pt as well and is going to order a milkshake with protein and sliced banana. YOJANA explained to pt that SW assists with discharge planning. SW spoke with him about going to rehab for a short term rehab stay or returning home with home health. Pt stated at this time he thinks he is going to return home and continue the home health. Pt states he does wish his was here and that she will be back. SW to stop back in once pt's returns.
[2024-11-18] MEDS: HYDRALAZINE HCL 50 MG TABLET PO ×2 (13:48→21:01)
[2024-11-18] MEDS: GABAPENTIN 300 MG CAPSULE PO ×2 (13:49→21:01)
[2024-11-18] MEDS: SODIUM CHLORIDE 1,000 MG TABLET 1000 MG PO ×2 (13:49→21:01)
--- NOTE | 2024-11-18 14:55 | SWNOTE1 ---
SW spoke to pt and in room. SW explained to pt's of the recommendations of short term rehab stay under pt's Medicare. Pt's is familiar with this as he went to [facility] back in for a few weeks for rehab. Pt's asked pt what he would like to do. Pt was undecided. SW and pt's did let him know it would be short term and it is for strengthening so he can return home. Pt is agreeable. They would like the [facility] again. SW to see if they have openings.
--- NOTE | 2024-11-18 15:20 | SWNOTE1 ---
William at [facility] is not sure they will have an opening. YOJANA stopped back in and spoke with pt and . Pt's voiced the only place she does not want it [facility] in [place]. She is open to SW looking in to [facility] since they are under same owernship as [facility]. YOJANA sent email to [facility], waiting to hear back.
--- NOTE | 2024-11-18 15:47 | SWNOTE1 ---
SW did not hear back from [facility], but did still send the referral to [facility].
--- NOTE | 2024-11-18 16:04 | SWNOTE1 ---
YOJANA received email from Chioma at [facility] and they will review and let SW know first thing in morning.
--- NOTE | 2024-11-18 20:25 | RESP.RT ---
No PRN breathing tx given. Pt sleeping. No respiratory distress noted.
[2024-11-18] MEDS: ATORVASTATIN CALCIUM 10 MG TABLET PO (20:51)
[2024-11-18] MEDS: SENNOSIDES 8.6 MG TABLET PO (21:01)
[2024-11-19] VITALS (23 sets, daily range): BP systolic 106–172; BP diastolic 43–75; PULSE 75–82; TEMP 36.6–36.8; O2SAT 92–95
[2024-11-19] MEDS: HYDRALAZINE HCL 50 MG TABLET PO ×2 (05:37→21:45)
[2024-11-19] MEDS: SODIUM CHLORIDE 1,000 MG TABLET 1000 MG PO ×3 (05:37→21:45)
[2024-11-19] MEDS: GABAPENTIN 300 MG CAPSULE PO ×3 (05:37→21:45)
[2024-11-19] MEDS: SENNOSIDES 8.6 MG TABLET PO ×3 (05:38→21:46)
[2024-11-19] MEDS: CITALOPRAM HYDROBROMIDE 20 MG TABLET 10 MG PO (08:56)
[2024-11-19] MEDS: HYDROCHLOROTHIAZIDE 25 MG TABLET PO (08:56)
[2024-11-19] MEDS: ZINC GLUCONATE 50 MG TABLET PO (08:56)
[2024-11-19] MEDS: OXYBUTYNIN CHLORIDE 5 MG TAB XL 15 MG PO (08:56)
[2024-11-19] MEDS: LISINOPRIL 20 MG TABLET PO (08:57)
[2024-11-19] MEDS: VITS A,C,E/LUTEIN/MINERALS 1 TABLET 2 TAB PO (08:57)
[2024-11-19] MEDS: TAMSULOSIN HCL 0.4 MG CAPSULE 0.8 MG PO (08:57)
[2024-11-19] MEDS: ASPIRIN 81 MG TABLET.DR PO (08:57)
[2024-11-19] MEDS: LATANOPROST 0.005% 2.5 ML BOTTLE 1 DROP OP (08:58)
[2024-11-19] MEDS: ENOXAPARIN SODIUM 40 MG/0.4 ML SYRINGE SUBQ (08:58)
[2024-11-19] MEDS: NYSTATIN 15 GM POWDER 1 APPLIC TOPICAL ×2 (08:58→20:11)
[2024-11-19] MEDS: ACETAMINOPHEN 325 MG TABLET 650 MG PO ×2 (09:08→20:09)
[2024-11-19] MEDS: ISOSORBIDE MONONITRATE 60 MG TAB.ER.24H PO (09:09)
[2024-11-19] MEDS: METFORMIN HCL 500 MG TABLET PO (09:09)
--- NOTE | 2024-11-19 09:11 | P.PN_ITS ---
Progress Note: Subjective Subjective Interval history: Patient resting comfortably in the bed this morning. He denies any current complaints. No fevers or chills, no n/v/d. Exam Narrative Exam Narrative: General: Patient is alert, and oriented to person, place and time with normal affect, proper hygiene Skin: no visible rashes, or ulcers Head: atraumatic, acephalic Eyes: PERRLA, no nystagmus present, conjunctiva clear, no scleral icterus Ears: normal gross auditory acuity Heart: Normal rate and rhythm, no murmurs/rubs/gallops Lungs: no audible wheezes, crackles and normal breath sounds all lung alvarez Abdomen: Normal audible bowel sounds, no distension, No palpable masses, no organomegaly, no rebound/guarding/ or rigidity Musculoskeletal: no swelling bilateral lower extremities Neuro: CN II-X grossly intact Constitutional Vital Signs, click to edit/add: Last Vital Signs Temp 98.1 F 11/19/24 03:50 Pulse 77 11/19/24 09:09 Resp 16 11/19/24 09:09 BP 172/75 H 11/19/24 08:56 Pulse Ox 94 L 11/19/24 03:50 O2 Del Method Room Air 11/19/24 03:50 Progress Note: A&P Assessment and Plan (1) Urinary tract infection: Assessment and Plan: Continue Cipro, awaiting culture Qualifiers: Encounter type: initial encounter Indwelling urinary catheter type: indwelling urethral catheter Urinary tract infection type: catheter-associated UTI Qualified Code(s): T83.511A - Infection and inflammatory reaction due to indwelling urethral catheter, initial encounter; N39.0 - Urinary tract infection, site not specified (2) Sepsis: Assessment and Plan: due to #1, sepsis has improved. WBC's 14.5 down from 13.8 Qualifiers: Sepsis acute organ dysfunction status: without acute organ dysfunction Sepsis type: sepsis due to unspecified organism Qualified Code(s): A41.9 - Sepsis, unspecified organism (3) Dehydration: Assessment and Plan: appears euvolemic (4) Acute kidney injury: Assessment and Plan: Cr. 1.24 down from 1.48 (5) Blank catheter in place: Assessment and Plan: monitor I&O's (6) Type 2 diabetes mellitus with hyperglycemia: Assessment and Plan: continue SSI, metformin, Qualifiers: Diabetes mellitus adjunct faculty for medical terminology insulin use: without senior care use Qualified Code(s): E11.65 - Type 2 diabetes mellitus with hyperglycemia (7) Benign essential hypertension: Assessment and Plan: stable. continue home meds (8) Paroxysmal atrial fibrillation: Assessment and Plan: monitor (9) Chronic heart failure with preserved ejection fraction (HFpEF): Assessment and Plan: no signs of acute HF, stop IV fluids (10) CAD (coronary artery disease), [place] coronary artery: Assessment and Plan: continue statin and aspirin Qualifiers: Associated angina: without angina [place] vs. transplanted heart: [place] heart Qualified Code(s): I25.10 - Atherosclerotic heart disease of [place] coronary artery without angina pectoris (11) Senile dementia: Assessment and Plan: continue aricept (12) Lumbar spondylosis: Plan Patient is a full code continue Lovenox for DVT prophylaxis Patient will require 1-2 more days of hospital necessary care Urinary Catheter Management Urinary Catheter Management Urethral: Cath placed during this visit: no
--- NOTE | 2024-11-19 10:20 | CM.NOTE ---
Rounds made with Dr. Little, called lab regarding AM lab results not back. Lab will send someone for AM draw. No discharge today, pt will discharge to [facility] for skilled therapy when medically stable.
[2024-11-19] MEDS: CIPROFLOXACIN 400 MG/200 ML D5W PREMIX 200 MG IV ×2 (10:54→22:13)
--- NOTE | 2024-11-19 11:05 | REH.PTDLY ---
Physical Therapy Daily Note PT Daily Note/Assess Start: 11/18/24 09:00 Freq: Status: Active Protocol: Document 11/19/24 11:00 LIANET (Rec[facility] 11[facility]19[facility]24 11[facility]05 [id number] Physical Therapy Daily Note/Assessment Time In 10:35 Time Out 10:53 Pain Level 8 Pain Level 8 Subjective Pt reports back pain has been horrible, 10/10 this morning. Rates about 8/10 currently. Will try therapy, but not sure how it will go. Therapeutic Exercise 8 Minutes (minutes) Therapeutic Exercise 1 Units Therapeutic Exercise Instructed in B LE supine exs 10x ea with AP, QS, GS, Treatment heel slides, hip abd slides, SLR Therapeutic Activity 7 Minutes (minutes) Therapeutic Activity 0 Units Therapeutic Activity Supine to sit transfers Mod A x2. Sit to stand Comments transfers Mod A x2 with pt being bent forward at hips at 90 degrees. Several cues for pt to stand upright, but pt states he cannot. Pt unable to advance legs in this position. Pt stood for 1 min without being able to straighten back. Pt sat back down in bed and required Max A x2 for sit to supine transfer and min A x2 with rolling side to side in bed. Total Therapy 15 Minutes Total Physical 1 Therapy Units Daily Note Summary Unable to transfer into chair this morning due to high pain and inability for pt to stand up straight. Pt required 2 assist with transfers. Recommend SNF at this time.
[2024-11-19 11:45] LABS: Basophils Absolute Auto 0.1 10^3/uL (0.0-0.1); Basophils Percent Auto 0.6 % (0.2-2.0); Eosinophils Absolute Auto 0.5 10^3/uL (0.0-0.7); Eosinophils Percent Auto 3.5 % (0.9-7.0); Hematocrit 26.7 % (42.0-54.0); Hemoglobin 8.4 g/dL (14.0-18.0); Immature Granulocytes Abs Auto 0.05 10^3/uL (0.00-0.03); Immature Granulocytes Pct Auto 0.4 % (0.0-0.5); Lymphocytes Percent Auto 7.2 % (20.5-60.0); Mean Corpuscular HGB Conc 31.5 g/dL (29.9-35.2); Mean Corpuscular Hemoglobin 26.6 pg (25.9-34.0); Mean Corpuscular Volume 84.5 fL (80.0-94.0); Mean Platelet Volume 9.2 fL (9.5-13.5); Monocytes Percent Auto 7.4 % (1.7-12.0); Neutrophils Absolute Auto 11.2 10^3/uL (1.4-6.5); Neutrophils Percent Auto 80.9 % (43.0-75.0); Platelet Count 324 10^3/uL (150-450); Red Blood Count 3.16 10^6/uL (4.70-6.10); Red Cell Distribution Width 13.8 % (11.0-15.0); White Blood Count 13.8 10^3/uL (4.0-11.0)
[2024-11-19 11:56] LABS: Alanine Aminotransferase 21 U/L (16-63); Albumin Globulin Ratio 0.6; Albumin Level 2.4 g/dL (3.4-5.0); Alkaline Phosphatase 126 U/L (46-116); Anion Gap 11.6; Aspartate Amino Transferase 26 U/L (15-37); BUN Creatinine Ratio 11.3; Bilirubin Total 0.3 mg/dL (0.2-1.0); Calcium 8.2 mg/dL (8.5-10.1); Carbon Dioxide 30.3 mmol/L (21.0-32.0); Chloride 98 mmol/L (98-107); Estimated GFR (African America >60 (>=60 mL/min/1.73m^2); Estimated GFR (Non-African Ame 55 (>=60 mL/min/1.73m^2); Globulin 3.7 g/dL; Glucose 252 mg/dL (74-106); Potassium 3.9 mmol/L (3.5-5.1); Sodium 136 mmol/L (136-145); Total Protein 6.1 g/dL (6.4-8.2)
--- NOTE | 2024-11-19 12:12 | OT.DAILY ---
Occupational Therapy Daily Note OT Inpatient Daily Visit Note Start: 11/18/24 08:57 Freq: Status: Active Protocol: Document 11/19/24 12:06 [id number] (Rec: 11/19/24 12:12 [id number]) OT Visit Details Time In/Time Out Time In 11:40 Time Out 12:00 OT Treatment Plan Subjective Subjective Pt reports lumbar and sacral pain at this time. Pt agreeable to participate in self-care tasks. Pt talkative and answering questions appropriately. Objective Objective Pt denies sitting on EOB or any dynamic GM movement. Sitting up in bed Pt was set up with supplies for UB bathing. Requires extended time to complete with accuracy. Reports RUE pain when reaching outside ASHVIN. Demonstrates limited motivation at this time. Set up with oral hygiene, able to open mouthwash container and rinse mouth. Followed by good sequencing and rinsing. Assessment Assessment Pt tolerated treatment well. Requires 2-4 VCs and prompts to participate. Continue OT POC. OT Radio Electronics Officer Timed Codes Self-[facility] 20 Management minutes ( minutes) Self-[facility] 1 Management units
--- NOTE | 2024-11-19 15:03 | SWNOTE1 ---
SW spoke to pt and in room and let them know [facility] does have a room available and once pt is medically stable for discharge, he can go there for rehab.
--- NOTE | 2024-11-19 15:32 | SWNOTE1 ---
YOJANA sent updates to Adelaida at [facility].
--- NOTE | 2024-11-19 19:33 | RESP.RT ---
No PRN breathing tx given. No respiratory distress noted.
[2024-11-19] MEDS: ATORVASTATIN CALCIUM 10 MG TABLET PO (19:48)
[2024-11-19] MEDS: DONEPEZIL HCL 10 MG TABLET PO (21:46)
[2024-11-20] VITALS (12 sets, daily range): BP systolic 137–157; BP diastolic 60–83; PULSE 75–83; TEMP 36.8–37.2; O2SAT 91–92
[2024-11-20] MEDS: HYDRALAZINE HCL 50 MG TABLET PO (05:05)
[2024-11-20] MEDS: GABAPENTIN 300 MG CAPSULE PO (05:05)
[2024-11-20] MEDS: SODIUM CHLORIDE 1,000 MG TABLET 1000 MG PO (05:06)
[2024-11-20] MEDS: SENNOSIDES 8.6 MG TABLET PO (05:06)
[2024-11-20 06:03] LABS: Basophils Absolute Auto 0.1 10^3/uL (0.0-0.1); Basophils Percent Auto 0.8 % (0.2-2.0); Eosinophils Absolute Auto 0.6 10^3/uL (0.0-0.7); Eosinophils Percent Auto 5.8 % (0.9-7.0); Hematocrit 27.5 % (42.0-54.0); Hemoglobin 8.7 g/dL (14.0-18.0); Immature Granulocytes Abs Auto 0.05 10^3/uL (0.00-0.03); Immature Granulocytes Pct Auto 0.5 % (0.0-0.5); Lymphocytes Absolute Auto 1.8 10^3/uL (1.2-3.8); Lymphocytes Percent Auto 16.6 % (20.5-60.0); Mean Corpuscular HGB Conc 31.6 g/dL (29.9-35.2); Mean Corpuscular Hemoglobin 26.8 pg (25.9-34.0); Mean Corpuscular Volume 84.6 fL (80.0-94.0); Mean Platelet Volume 9.2 fL (9.5-13.5); Monocytes Percent Auto 9.4 % (1.7-12.0); Neutrophils Absolute Auto 7.3 10^3/uL (1.4-6.5); Neutrophils Percent Auto 66.9 % (43.0-75.0); Platelet Count 344 10^3/uL (150-450); Red Blood Count 3.25 10^6/uL (4.70-6.10); Red Cell Distribution Width 13.9 % (11.0-15.0)
[2024-11-20 06:20] LABS: Alanine Aminotransferase 27 U/L (16-63); Albumin Globulin Ratio 0.7; Albumin Level 2.6 g/dL (3.4-5.0); Alkaline Phosphatase 156 U/L (46-116); Aspartate Amino Transferase 32 U/L (15-37); BUN Creatinine Ratio 16.2; Bilirubin Total 0.4 mg/dL (0.2-1.0); Calcium 8.6 mg/dL (8.5-10.1); Carbon Dioxide 31.2 mmol/L (21.0-32.0); Chloride 100 mmol/L (98-107); Estimated GFR (African America >60 (>=60 mL/min/1.73m^2); Estimated GFR (Non-African Ame >60 (>=60 mL/min/1.73m^2); Globulin 3.9 g/dL; Glucose 119 mg/dL (74-106); Potassium 4.2 mmol/L (3.5-5.1); Sodium 139 mmol/L (136-145); Total Protein 6.5 g/dL (6.4-8.2)
--- NOTE | 2024-11-20 09:10 | PM.DS1 ---
DS: Providers Provider Date of admission: 11/17/24 00:40 Primary care physician: Ramon Ortiz MD Attending physician on admission: Ramon Ortiz Consults: 11/17/24 09:41 Occupational Therapy Eval and Treat Routine Reason for consultation: Weakness Physical Therapy Eval and Treat Routine Reason for consultation: Weakness Discharging clinician: Priscilla Little DS: Diagnosis Discharge Diagnosis (1) Urinary tract infection: Qualifiers: Encounter type: initial encounter Indwelling urinary catheter type: indwelling urethral catheter Urinary tract infection type: catheter-associated UTI Qualified Code(s): T83.511A - Infection and inflammatory reaction due to indwelling urethral catheter, initial encounter; N39.0 - Urinary tract infection, site not specified (2) Sepsis: Qualifiers: Sepsis acute organ dysfunction status: without acute organ dysfunction Sepsis type: sepsis due to unspecified organism Qualified Code(s): A41.9 - Sepsis, unspecified organism (3) Dehydration: (4) Acute kidney injury: (5) Blank catheter in place: (6) Type 2 diabetes mellitus with hyperglycemia: Qualifiers: Diabetes mellitus retirement insulin use: without retirement use Qualified Code(s): E11.65 - Type 2 diabetes mellitus with hyperglycemia (7) Benign essential hypertension: (8) Paroxysmal atrial fibrillation: (9) Chronic heart failure with preserved ejection fraction (HFpEF): (10) CAD (coronary artery disease), [place] coronary artery: Qualifiers: Associated angina: without angina [place] vs. transplanted heart: [place] heart Qualified Code(s): I25.10 - Atherosclerotic heart disease of [place] coronary artery without angina pectoris (11) Senile dementia: (12) Lumbar spondylosis: DS: Summary Hospital Course Hospital Course: 89 y/o male to ER after a fall on 11/17/24. Patient was standing by commode and helping him get cleaned up when legs became very weak. Not able to hold self up and lowered to floor. Called EMS for lift assist and squad found low BP around 50s systolic. Started IV fluids and to ER. Given about 500 mL by arrival and BP improved. History of indwelling Blank in place and UA showed UTI. WBC elevated at 17.8 and labs showed KARLA. Started antibiotics and admitted for treatment. Started cipro for UTI and history of pseudomonas in urine. Did well on IV cipro, WBC's down to normal 11.0, Cr normal at 1.11. Blood and urine cultures negative. Will complete 7 more days of cipro 500mg BID. He will continue his Blank Catheter. Vitals stable. He will be discharged to the [facility] today in stable condition. He may return to the ER with any worsening signs or symptoms. Status at Discharge Functional status at discharge: uses cane/walker Overall status at discharge: patient is progressing back to baseline Time Spent with Patient Time attestation: Total time spent providing and/or coordinating discharge services: Time spent: greater than 30 minutes Exam Narrative Exam Narrative: General: Patient is alert, and oriented to person, place and time with normal affect, proper hygiene Skin: no visible rashes, or ulcers Head: atraumatic, acephalic Eyes: PERRLA, no nystagmus present, conjunctiva clear, no scleral icterus Ears: normal gross auditory acuity Heart: Normal rate and rhythm, no murmurs/rubs/gallops Lungs: no audible wheezes, crackles and normal breath sounds all lung alvarez Abdomen: Normal audible bowel sounds, no distension, No palpable masses, no organomegaly, no rebound/guarding/ or rigidity Musculoskeletal: no swelling bilateral lower extremities Neuro: CN II-X grossly intact Constitutional Vital Signs, click to edit/add: Last Vital Signs Temp 98.5 F 11/20/24 08:00 Pulse 80 11/20/24 08:00 Resp 17 11/20/24 08:00 BP 154/75 H 11/20/24 08:00 Pulse Ox 92 L 11/20/24 08:00 O2 Del Method Room Air 11/20/24 08:00 DS: Data Data Completed and Pending Labs on day of discharge: Labs from last 24 hours 11/20/24 11/19/24 05:33 11:32 WBC 11.0 13.8 H RBC 3.25 L 3.16 L Hgb 8.7 L 8.4 L Hct 27.5 L 26.7 L MCV 84.6 84.5 MCH 26.8 26.6 MCHC 31.6 31.5 RDW 13.9 13.8 Plt Count 344 324 MPV 9.2 L 9.2 L Neut % (Auto) 66.9 80.9 H Lymph % (Auto) 16.6 L 7.2 L [place] % (Auto) 9.4 7.4 Eos % (Auto) 5.8 3.5 Baso % (Auto) 0.8 0.6 Neut # (Auto) 7.3 H 11.2 H Lymph # (Auto) 1.8 1.0 L [place] # (Auto) 1.0 H 1.0 H Eos # (Auto) 0.6 0.5 Baso # (Auto) 0.1 0.1 Abs Immat Gran (auto) 0.05 H 0.05 H Imm/Tot Granulo (auto) 0.5 0.4 Sodium 139 136 Potassium 4.2 3.9 Chloride 100 98 Carbon Dioxide 31.2 30.3 Anion Gap 12.0 11.6 BUN 18.0 14.0 Creatinine 1.11 1.24 Est GFR ( Amer) >60 >60 Est GFR (Non-Af Amer) >60 55 L BUN/Creatinine Ratio 16.2 11.3 Glucose 119 H 252 H Calcium 8.6 8.2 L Total Bilirubin 0.4 0.3 AST 32 26 ALT 27 21 Alkaline Phosphatase 156 H 126 H Total Protein 6.5 6.1 L Albumin 2.6 L 2.4 L Globulin 3.9 3.7 Albumin/Globulin Ratio 0.7 0.6 Preliminary micro results at discharge 11/16/24 23:40 Blood Culture Result 2 - Preliminary Blood - Left Hand NO GROWTH AT 36-48 HOURS. FINAL TO FOLLOW. 11/16/24 23:30 Blood Culture Result 1 - Preliminary Blood - Right Hand NO GROWTH AT 36-48 HOURS. FINAL TO FOLLOW. Discharge Plan Discharge Disposition: Xfer SNF Condition: Good Discharge Medications: New ciprofloxacin HCl 500 mg Tablet 500 mg PO BID 7 Days Qty: 14 0RF Continued donepezil [Aricept] 10 mg tablet 10 mg PO .QHS isosorbide mononitrate 60 mg tablet extended release 24 hr 60 mg PO DAILY lisinopril-hydrochlorothiazide 20-25 mg tablet 1 tab PO DAILY lovastatin 40 mg tablet 40 mg PO DAILY tamsulosin 0.4 mg capsule 0.8 mg PO DAILY aspirin 81 mg tablet,delayed release (DR/EC) 81 mg PO DAILY PreserVision AREDS 4,296 mcg-226 mg-90 mg capsule 2 cap PO DAILY latanoprost 0.005 % drops 1 drp ophthalmic (eye) .QHS zinc 50 mg tablet 50 mg PO DAILY citalopram 10 mg tablet 10 mg PO QAM hydralazine 50 mg tablet 50 mg PO TID sodium chloride 1,000 mg Tablet,Soluble 1,000 mg PO TID Qty: 0 0RF sennosides [senna] 8.6 mg tablet 8.6 mg PO TID PRN (Reason: constipation) naproxen 500 mg tablet 500 mg PO DAILY PRN (Reason: pain) ondansetron 4 mg tablet,disintegrating 4 mg PO Q6H PRN (Reason: nausea and vomiting) Qty: 20 0RF oxybutynin chloride 10 mg tablet extended release 24hr 10 mg PO BID gabapentin 300 mg capsule 300 mg PO TID hydroxyzine HCl 25 mg tablet 25 mg PO QID PRN (Reason: itching) metformin 500 mg tablet extended release 24 hr 1,000 mg PO BID Print Language: [place] Forms: Portal Instructions Discharge location: Discharge to the [facility]
[2024-11-20] MEDS: OXYBUTYNIN CHLORIDE 5 MG TAB XL 15 MG PO (10:08)
[2024-11-20] MEDS: ISOSORBIDE MONONITRATE 60 MG TAB.ER.24H PO (10:08)
[2024-11-20] MEDS: TAMSULOSIN HCL 0.4 MG CAPSULE 0.8 MG PO (10:08)
[2024-11-20] MEDS: HYDROCHLOROTHIAZIDE 25 MG TABLET PO (10:09)
[2024-11-20] MEDS: ZINC GLUCONATE 50 MG TABLET PO (10:09)
[2024-11-20] MEDS: ASPIRIN 81 MG TABLET.DR PO (10:09)
[2024-11-20] MEDS: CITALOPRAM HYDROBROMIDE 20 MG TABLET 10 MG PO (10:09)
[2024-11-20] MEDS: METFORMIN HCL 500 MG TABLET PO (10:10)
[2024-11-20] MEDS: ENOXAPARIN SODIUM 40 MG/0.4 ML SYRINGE SUBQ (10:10)
[2024-11-20] MEDS: LATANOPROST 0.005% 2.5 ML BOTTLE 1 DROP OP (10:10)
[2024-11-20] MEDS: LISINOPRIL 20 MG TABLET PO (10:10)
[2024-11-20] MEDS: NYSTATIN 15 GM POWDER 1 APPLIC TOPICAL (10:11)
[2024-11-20] MEDS: VITS A,C,E/LUTEIN/MINERALS 1 TABLET 2 TAB PO (10:14)
--- NOTE | 2024-11-20 11:23 | PT.DAILY ---
Physical Therapy Daily Note PT Daily Note/Assess Start: 11/18/24 09:00 Freq: Status: Active Protocol: Document 11/20/24 11:22 JOSE (Rec: 11/20/24 11:23 JOSE [id number]) Visit Not Completed Visit Not Completed Visit Not Completed Pt refusing,Other Due to: Other Reason Visit Pt wishes to hold PT this morning. Worked with OT prior Not Completed to my arrival. Reports high pain since sitting EOB. Wishes to rest until transferred to [facility]. Pt denies any other needs at this time. Physical Therapy Daily Note/Assessment Time In/Time Out Time In 11:20 Time Out 11:21 Pain In Pain N/A Pain Out Pain N/A GG. Functional Abilities and Goals-Complete for Swing Bed Patients Only [id number]. Self-Care [id number]. Mobility
--- NOTE | 2024-11-20 12:49 | CM.NOTE ---
Rounds made with Dr. Little, pt will discharge to [place] today for skilled therapy.
--- NOTE | 2024-11-20 14:17 | SWNOTE1 ---
Pt is stable for discharge today to [facility] skilled. YOJANA called trips and no transport. YOJANA spoke to [facility] and they will be here at 2:00. YOJANA notified nurse and of time. bringing in clothes. YOJANA completed HENS. YOJANA sent dc med rec and dc summary to Adelaida at [facility]. YOJANA took packet to the floor.
--- NOTE | 2024-11-20 14:19 | PC.NURSE ---
report called to mercedes real, pt taken to exit via [facility] with [facility] and discharge packet.
== END 2024-11-20 14:20 | DRG 698 ==
LOC: ER 23:26 → MS 11-17 12:01
PROVIDERS: Registered Nurse; Admitting Provider Family Medicine; Emergency Provider Emergency Medicine; PCP Family Medicine; Visit Provider Family Medicine
DX: T83.511A Infection and inflammatory reaction due to indwelling urethral catheter, initial encounter (principal); A41.9 Sepsis, unspecified organism; N17.9 Acute kidney failure, unspecified; I50.32 Chronic diastolic (congestive) heart failure; N39.0 Urinary tract infection, site not specified; E86.0 Dehydration; E11.65 Type 2 diabetes mellitus with hyperglycemia; I48.0 Paroxysmal atrial fibrillation; I11.0 Hypertensive heart disease with heart failure; I25.10 Atherosclerotic heart disease of native coronary artery without angina pectoris; F03.90 Unspecified dementia, unspecified severity, without behavioral disturbance, psychotic disturbance, mood disturbance, and anxiety; M47.816 Spondylosis without myelopathy or radiculopathy, lumbar region; Z79.82 Long term (current) use of aspirin; Z79.84 Long term (current) use of oral hypoglycemic drugs; Z79.899 Other long term (current) drug therapy; C61 Malignant neoplasm of prostate; Z96.653 Presence of artificial knee joint, bilateral; Z95.0 Presence of cardiac pacemaker; Z87.442 Personal history of urinary calculi; Z91.81 History of falling; Z87.440 Personal history of urinary (tract) infections; Z90.49 Acquired absence of other specified parts of digestive tract
CPT/HCPCS: 36415; 80053; 81001; 83605; 83735; 83880; 84484; 85025; 87040; 87086; 93005; 94761; 96365; 97110; 97161; 97165; 97535; 99285; J0744; J1650; J2405